=== PATIENT | female | born 1940 | race Caucasian/White ===

== ENCOUNTER 2017-06-14 11:50 | Emergency (ER) | payer BC ==
[~2017-06-14] VITALS: Ht 165.1 cm; Wt 74.0 kg
[~2017-06-14 11:50] MED LIST: ALLDSR/24 PO; ASPI-435 PO; ATEN50TA21 PO; BISM262C5 PO; CLTP PO; CLX20 PO; OXYBPOW PO; POTA10CA28 PO; PRLSR20 PO; SIMV10TA5 PO
[2017-06-14 11:52] VITALS: TEMP 36.7; Ht 165.1 cm; Wt 74.0 kg
[2017-06-14] MEDS ORDERED: NRN100 PO (12:25)
[2017-06-14] MEDS ORDERED: HYDR-4313 PO (12:25)
[2017-06-14] MEDS ORDERED: ASPI325T39 PO (12:25)
[2017-06-14] MEDS ORDERED: MULTTAB58 PO (12:26)
[2017-06-14] MEDS ORDERED: CALC-354 PO (12:27)
--- NOTE | 2017-06-14 13:16 | DIAGNOSTIC IMAGING REPORT ---
ULTRASOUND RIGHT LOWER EXTREMITY VENOUS CLINICAL HISTORY: Right leg pain and swelling. COMPARISON STUDY: No priors. TECHNIQUE: Real-time, grayscale, and color Doppler sonography of the deep veins of the right lower extremity was performed from the inguinal crease to the calf. Compression and augmentation were utilized. FINDINGS: There is no sonographic evidence of deep venous thrombosis identified in the right lower extremity. The common femoral, superficial femoral, and popliteal veins are patent and normally compressible. The greater saphenous vein and the profunda femoris vein at the junction with the common femoral vein are clear. The visualized calf veins are patent. A 5 mm hypoechoic nodule is seen posterior to the knee at a site of bruising. This is of indeterminant but doubtful significance. No large hematoma is identified. IMPRESSION: There is no sonographic evidence of deep venous thrombosis identified in the right lower extremity. Electronically signed by: Manjinder Myers M.D. 06/14/2017 1:15 PM Dictated Date/Time: 06/14/2017 1:14 PM
--- NOTE | 2017-06-14 13:36 | EMERGENCY ROOM VISIT NOTE ---
ED Visit Note First contact with patient: 12:15 I have personally seen and evaluated the patient with the physician ambulance assistant. I agree with the diagnostic/management decisions and have personally been involved in these decisions and agree with the diagnosis.
[2017-06-14 13:44] VITALS: BP 125/68; PULSE 59; O2SAT 96
--- NOTE | 2017-06-17 13:03 | EMERGENCY ROOM VISIT NOTE ---
History First contact with patient: 12:15 Chief Complaint: LEG PAIN,LEG INJURY Stated Complaint: RT LEG LUMP/NEAR KNEE AREA-METAL DOOR HIT IN LEG History of Present Illness The patient is a 76 year old white female who presents to the Emergency Room with complaints of right knee discomfort and right lower leg discoloration. Patient struck her leg on a swinging metal door a few days ago. She developed swelling and discoloration. She was at the [facility] [place] and one of the continuous yarn dyeing machine operator looked at her leg. They told her to come to the ED for evaluation for a blood clot. She denies any numbness or tingling. There was no laceration. She has had no treatment. She denies any shortness of breath. No other complaints. She notes a small lump postero-laterally and some soreness in this area. No prior history of similar injury. She denies any history of DVTs. Review of Systems REVIEW OF SYSTEM: HEENT: No dizziness, visual problems, hearing loss, or tinnitus. There is no difficulty swallowing and no oral lesions are present. PULMONARY: No cough, shortness of breath, sputum production or hemoptysis. CARDIOVASCULAR: No chest pain, palpitations, shortness of breath or peripheral edema. GASTROINTESTINAL: No diarrhea, constipation, nausea, vomiting, or abdominal pain. GENITOURINARY: No dysuria, frequency, urgency or nocturia. NEUROLOGIC: No weakness, muscle tenderness, epilepsy or history of neurological problems. MUSCULOSKELETAL: No history of joint tenderness/swelling. Positive history of arthritis and arthralgias. SKIN: No rashes or lesions. PSYCHIATRIC: No history of depression or mental illness. ENDOCRINE: No history of diabetes, thyroid disorders, or abnormal hair growth. Past Medical/Surgical History Medical Problems: (1) Cholelithiasis Nos (2) Hypertension Nos (3) Osteoporosis Nos (4) Personal History, Pneumonia (Recurrent) (5) Pure Hypercholesterolem Previous surgeries: Back surgery, carpal tunnel release, cubital tunnel release Family History Significant for heart disease, hypertension, and cancer. Parents are . Social History Smoking Status: Former Smoker Smokeless Tobacco Use: No Alcohol Use: none Marital Status: Housing Status: lives with family Occupation Status: retired Current/Historical Medications Scheduled Aspirin (Aspirin Ec), 325 MG PO DAILY Atenolol & Chlorthalidone (Tenoretic 50MG/25MG), 1 TAB PO DAILY Calcium Carbonate-Cholecalcife (Caltrate 600+D), 1 TAB PO DAILY Multiple Vitamin (Multivitamin), 1 TAB PO DAILY Potassium Chloride (Micro-K Ext Rel), 20 MEQ PO BID Simvastatin (Zocor), 10 MG PO QPM Scheduled PRN Acetaminophen/Hydrocodone (Hydrocodone/Acetaminophen 5-325 mg), 1 TAB PO Q4H PRN for Pain Gabapentin (Gabapentin), 100-400 MG PO UD PRN for NEUROPATHY Allergies Coded Allergies: Azithromycin (Verified Allergy, Severe, THROAT SWELLS, 06/14/17) Penicillin V (Verified Allergy, Mild, CAN TAKE PO PCN/AMOX W/O PROBLEM; ARM SWELLED W/ PCN SHOT, 06/14/17) Sulfamethoxazole w/Trimethoprim (Unverified Allergy, Unknown, Hives, ) Physical Exam Vital Signs Date Time Temp Pulse Resp B/P (MAP) Pulse Ox O2 Delivery O2 Flow Rate FiO2 06/14/17 13:44 59 20 125/68 96 Room Air 06/14/17 11:52 36.7 66 18 133/74 94 Room Air Pain Rating (0-10): 0 Physical Exam Gen.: Well-developed, elderly white female, in no acute distress. Sitting on a bed. Alert and oriented. Skin:Warm and dry with good turgor. No rashes or lesions. No erythema. Significant ecchymosis present over the posterior and lateral aspect of her right lower leg. No open wounds. Mild edema. She seems to have a localized pocket just lateral to the popliteal fossa. No palpable cords. The patient is not diaphoretic. No abrasions. Musculoskeletal: She has intact motion to the knee and ankle without discomfort. Normal Hess test. Normal Homans test. Strength is 5/5 for resisted motion. No significant discomfort with palpation over the medial or lateral joint line at the knee. Mild discomfort over her distal biceps femoris tendon. No increased pain with resisted hamstring curl. Neurologic: Gross sensation is intact across the right lower leg by soft touch. Peripheral pulses are 2+. Medical Decision & Procedures ER Provider Diagnostic Interpretation: Ultrasound obtained today of the right lower leg was read by radiology as unremarkable. ED Course Patient was educated regarding today's findings. Conservative care measures were discussed. Ultrasound was obtained and was negative for DVT. She was instructed to use moist heat to the leg several times per day to speed healing. Elevate to reduce any swelling. Tylenol every 6 hours as needed for mild discomfort. Follow-up with her PCP as needed or return to the ED for any other concerns. Contusion handout was provided. Patient was seen in conjunction with Dr. Paz, who also evaluated the patient and concurred with today's diagnosis and treatment plan. Medical Decision Possibility of DVT, hematoma, muscle rupture, tendon rupture, and intra- articular process were considered among others. Impression Primary Impression: Traumatic hematoma of right lower leg Departure Information Dispostion Home / Self-Care Condition FAIR Forms HOME CARE DOCUMENTATION FORM, TYLENOL USE, IMPORTANT VISIT INFORMATION Patient Instructions [facility], ED Hematoma Additional Instructions Tylenol every 6 hours as needed for discomfort Apply warm moist compresses to the area several times per day to resolve the discoloration and swelling Follow-up with your PCP as needed Return to the ED for any other concerns Problem Qualifiers Primary Impression: Traumatic hematoma of right lower leg Encounter type: initial encounter Qualified Codes: S80.11XA - Contusion of right lower leg, initial encounter
[2017-06-24] MEDS ORDERED: ZNT150 PO (08:53)
== END 2017-06-14 13:54 | disposition home or self-care (01) ==
LOC: C.EDB 11:54 → C.EDD 13:54
DX: S80.11XA Contusion of right lower leg, initial encounter (principal); W22.8XXA Striking against or struck by other objects, initial encounter; M25.561 Pain in right knee; I10 Essential (primary) hypertension; M81.0 Age-related osteoporosis without current pathological fracture; E78.5 Hyperlipidemia, unspecified; Z87.01 Personal history of pneumonia (recurrent); Z87.891 Personal history of nicotine dependence; Z79.82 Long term (current) use of aspirin

== ENCOUNTER 2017-06-22 11:10 | Observation (INO) | payer BC ==
[~2017-06-22] VITALS: Ht 162.6 cm; Wt 74.2 kg
[~2017-06-22 11:10] MED LIST changes: -ALLDSR/24 PO; -ASPI-435 PO; +ASPI325T39 PO; -BISM262C5 PO; +CALC-354 PO; -CLTP PO; -CLX20 PO; +HYDR-4313 PO; +MULTTAB58 PO; +NRN100 PO; -OXYBPOW PO; -PRLSR20 PO
[2017-06-22] MEDS ORDERED: ONDANSETRON INJ 2 MG/ML 2 ML VIAL IV STA (11:28)
[2017-06-22] MEDS ORDERED: FENTANYL CITRATE INJ 50 MCG/1 ML 2 ML VIAL IV ONE (11:30)
[2017-06-22] MEDS ORDERED: SODIUM CHLORIDE 0.9% 500ML 500 ML IV STA ×2 (11:46→11:47)
[2017-06-22 11:48] LABS: BASO % 0.2 %; BASO ABS # 0.02 K/uL (0-0.2); COMPLETE YES; HEMATOCRIT 39.1 % (37-47); IG% 0.3 %; LYMPH ABS # 1.42 K/uL (1.2-3.4); MEAN CELL VOLUME 88.7 fL (80-100); MEAN CORPUSCULAR HEMOGLOBIN 31.3 pg (25-34); MEAN CORPUSCULAR HGB CONC 35.3 g/dl (32-36); MEAN PLATELET VOLUME 9.9 fL (7.4-10.4); MONO % 6.6 %; NEUT % 80.9 %; PLATELET COUNT 243 K/uL (130-400); RED BLOOD COUNT 4.41 M/uL (4.2-5.4); WHITE BLOOD COUNT 11.81 K/uL (4.8-10.8)
[2017-06-22 11:58] LABS: PARTIAL THROMBOPLASTIN RATIO 0.9; PROTHROMBIN TIME (PATIENT) 10.7 SECONDS (9.0-12.0)
--- NOTE | 2017-06-22 12:01 | DIAGNOSTIC IMAGING REPORT ---
CHEST ONE VIEW PORTABLE HISTORY: Atypical CHEST PAIN COMPARISON: Chest 12/03/2010. FINDINGS: The heart is top normal in size. Poststernotomy changes. No focal lung consolidations. No evidence for pulmonary edema. No pleural effusions. No pneumothorax. Mild interstitial thickening at the lung bases is likely chronic. IMPRESSION: No acute process. Electronically signed by: Martin Granados M.D. 06/22/2017 12:00 PM Dictated Date/Time: 06/22/2017 11:57 AM
[2017-06-22 12:07] LABS: BUN/CREATININE RATIO 23.7 (10-20); CALCIUM 9.2 mg/dl (8.5-10.1); CREATININE 0.61 mg/dl (0.60-1.20); MAGNESIUM 2.1 mg/dl (1.8-2.4); POTASSIUM 2.6 mmol/L (3.5-5.1)
--- NOTE | 2017-06-22 12:09 | EMERGENCY ROOM VISIT NOTE ---
History Report prepared by Nolanibe: Ema Wilde Under the Supervision of: Dr. Douglas Abad M.D. First contact with patient: 11:22 Chief Complaint: CHEST PAIN Stated Complaint: CHEST/ABD PAIN, VOMITING Nursing Triage Summary: Substernal CP x3 days with associated dyspnea. "I think it's my gall bladder. I was just here a few days ago to make sure I didn't have clots in my legs and it hurt then on and off but it's worse now." History of Present Illness The patient is a 79 year old white female with a past medical history of aneurysms and disc repair surgery, who presents to the ED with a cc of constant chest pain beginning 3 days ago. Positive vomiting, nausea, and sob when laying. Negative cough, traveling, etoh, and tobacco (pt quit smoking two years ago). Source of History: patient Onset: 3 days ago Position: chest Timing: constant Associated Symptoms: + SOB (when laying flat), + nausea, + vomiting, No cough Review of Systems See HPI for pertinent positives and negatives. A total of ten systems were reviewed and were otherwise negative. Past Medical & Surgical Medical Problems: (1) Cholelithiasis Nos (2) Hypertension Nos (3) Osteoporosis Nos (4) Personal History, Pneumonia (Recurrent) (5) Pure Hypercholesterolem Family History no pertinent family history stated Social History Smoking Status: Former Smoker Alcohol Use: none Marital Status: Housing Status: lives with family Occupation Status: retired Current/Historical Medications Scheduled Aspirin (Aspirin Ec), 325 MG PO DAILY Atenolol & Chlorthalidone (Tenoretic 50MG/25MG), 1 TAB PO DAILY Calcium Carbonate-Cholecalcife (Caltrate 600+D), 1 TAB PO DAILY Multiple Vitamin (Multivitamin), 1 TAB PO DAILY Potassium Chloride (Micro-K Ext Rel), 20 MEQ PO BID Simvastatin (Zocor), 10 MG PO QPM Scheduled PRN Acetaminophen/Hydrocodone (Hydrocodone/Acetaminophen 5-325 mg), 1 TAB PO Q4H PRN for Pain Gabapentin (Gabapentin), 100-400 MG PO UD PRN for NEUROPATHY Allergies Coded Allergies: Azithromycin (Verified Allergy, Severe, THROAT SWELLS, 06/22/17) Penicillin V (Verified Allergy, Mild, CAN TAKE PO PCN/AMOX W/O PROBLEM; ARM SWELLED W/ PCN SHOT, 06/22/17) Sulfamethoxazole w/Trimethoprim (Unverified Allergy, Unknown, Hives, ) Physical Exam Vital Signs Date Time Temp Pulse Resp B/P (MAP) Pulse Ox O2 Delivery O2 Flow Rate FiO2 06/22/17 15:47 62 20 127/58 96 Room Air 06/22/17 14:30 55 16 154/57 95 Room Air 06/22/17 13:30 59 14 143/57 96 Room Air 06/22/17 12:30 57 20 129/61 94 Room Air 06/22/17 12:23 52 06/22/17 11:12 36.6 62 18 119/79 97 Room Air Physical Exam GENERAL: Awake, alert, well-appearing, NAD HENT: Normocephalic, atraumatic. No JVD midline sternotomy scar. EYES: Normal conjunctiva. Sclera non-icteric. NECK: Supple. No nuchal rigidity. FROM. RESPIRATORY: CTAB, no rhonchi, wheezing, crackles CARDIAC: RRR, no MRG ABDOMEN: Soft, NTND, BS+, No CVA tenderness, mild RUQ epigastric pain. Negative Obturators, negative Psoas, negative Lilly's MSK: No chest wall TTP, no LE edema, 2+ dp pulses present. NEURO: GCS 15, CN 2-12 intact, moves all 4s on command SKIN: No rash or jaundice noted. Medical Decision & Procedures ER Provider Diagnostic Interpretation: Radiology results as stated below per my review and radiologist interpretation: CHEST ONE VIEW PORTABLE FINDINGS: The heart is top normal in size. Poststernotomy changes. No focal lung consolidations. No evidence for pulmonary edema. No pleural effusions. No pneumothorax. Mild interstitial thickening at the lung bases is likely chronic. IMPRESSION: No acute process. Electronically signed by: Martin Granados M.D. Laboratory Results 06/22/17 11:29 Red Blood Count 4.41, Mean Corpuscular Volume 88.7, Mean Corpuscular Hemoglobin 31.3, Mean Corpuscular Hemoglobin Concent 35.3, Mean Platelet Volume 9.9, Neutrophils (%) (Auto) 80.9, Lymphocytes (%) (Auto) 12.0, Monocytes (%) (Auto) 6.6, Eosinophils (%) (Auto) 0.0, Basophils (%) (Auto) 0.2, Neutrophils # (Auto) 9.55, Lymphocytes # (Auto) 1.42, Monocytes # (Auto) 0.78, Eosinophils # (Auto) 0.00, Basophils # (Auto) 0.02 06/22/17 11:29 Test 06/22/17 11:29 06/22/17 11:37 White Blood Count 11.81 K/uL (4.8-10.8) Red Blood Count 4.41 M/uL (4.2-5.4) Hemoglobin 13.8 g/dL (12.0-16.0) Hematocrit 39.1 % (37-47) Mean Corpuscular Volume 88.7 fL (80-100) Mean Corpuscular Hemoglobin 31.3 pg (25-34) Mean Corpuscular Hemoglobin Concent 35.3 g/dl (32-36) Platelet Count 243 K/uL (130-400) Mean Platelet Volume 9.9 fL (7.4-10.4) Neutrophils (%) (Auto) 80.9 % Lymphocytes (%) (Auto) 12.0 % Monocytes (%) (Auto) 6.6 % Eosinophils (%) (Auto) 0.0 % Basophils (%) (Auto) 0.2 % Neutrophils # (Auto) 9.55 K/uL (1.4-6.5) Lymphocytes # (Auto) 1.42 K/uL (1.2-3.4) Monocytes # (Auto) 0.78 K/uL (0.11-0.59) Eosinophils # (Auto) 0.00 K/uL (0-0.5) Basophils # (Auto) 0.02 K/uL (0-0.2) RDW Standard Deviation 44.0 fL (36.4-46.3) RDW Coefficient of Variation 13.4 % (11.5-14.5) Immature Granulocyte % (Auto) 0.3 % Immature Granulocyte # (Auto) 0.04 K/uL (0.00-0.02) Prothrombin Time 10.7 SECONDS (9.0-12.0) Prothromb Time International Ratio 1.0 (0.9-1.1) Activated Partial Thromboplast Time 24.2 SECONDS (21.0-31.0) Partial Thromboplastin Ratio 0.9 Anion Gap 6.0 mmol/L (3-11) Est Creatinine Clear Calc Drug Dose 77.6 ml/min Estimated GFR () 102.1 Estimated GFR (Non- 88.1 BUN/Creatinine Ratio 23.7 (10-20) Calcium Level 9.2 mg/dl (8.5-10.1) Phosphorus Level 2.9 mg/dl (2.5-4.9) Magnesium Level 2.1 mg/dl (1.8-2.4) Total Bilirubin 0.7 mg/dl (0.2-1) Direct Bilirubin 0.1 mg/dl (0-0.2) Aspartate Amino Transf (AST/SGOT) 19 U/L (15-37) Alanine Aminotransferase (ALT/SGPT) 26 U/L (12-78) Alkaline Phosphatase 64 U/L (45-117) Total Creatine Kinase 104 U/L (26-192) Total Protein 7.7 gm/dl (6.4-8.2) Albumin 4.2 gm/dl (3.4-5.0) Triglycerides Level 87 mg/dl (0-150) Cholesterol Level 225 mg/dl (0-200) HDL Cholesterol 78 mg/dl LDL Cholesterol, Calculated 130 mg/dl VLDL Cholesterol, Calculated 17 mg/dl Cholesterol/HDL Ratio 2.9 Lipase 178 U/L (73-393) Bedside Troponin I < 0.030 ng/ml (0-0.045) Laboratory results reviewed by me Medications Administered Medications (Trade) Dose Ordered Sig/Madhu Route Start Time Stop Time Status Last Admin Dose Admin Ondansetron HCl (Zofran Inj) 4 mg NOW STAT IV 06/22/17 11:28 06/22/17 11:31 DC 06/22/17 11:48 4 MG Fentanyl Citrate (Fentanyl Inj) 50 mcg NOW ONCE IV 06/22/17 11:30 06/22/17 11:31 DC 06/22/17 11:49 50 MCG Sodium Chloride 500 ml @ 999 mls/hr Q31M STAT IV 06/22/17 11:46 06/22/17 12:16 DC 06/22/17 11:48 999 MLS/HR Potassium Chloride (Klor-Con M10) 40 meq NOW STAT PO 06/22/17 12:40 06/22/17 12:41 DC 06/22/17 12:46 40 MEQ Potassium Chloride (Kcl 10 Meq / Wtr) 20 meq NOW STAT IV 06/22/17 12:40 06/22/17 12:41 DC 06/22/17 12:47 20 MEQ ECG Indication: chest pain Rate (beats per minute): 59 Rhythm: sinus bradycardia Findings: T-wave inversion (and depression in V3-V6), other (normal intervals) ED Course 1140: The patient was evaluated in room C11B. A complete history and physical exam was performed. 1248: Discussed the patient's case with Dr. Chauncey Calhoun. The patient will be evaluated for further treatment and disposition. 1255: Upon reexamination, the patient was resting. I discussed the test results and treatment plan with the patient. The patient will be evaluated for further management. Medical Decision The patient is a 79 year old white female with a past medical history of aneurysms and disc repair surgery, who presents to the ED with a cc of constant chest pain beginning 3 days ago. Differential diagnosis: Etiologies such as cardiac ischemia, aortic dissection, pulmonary embolism, pneumonia, pneumothorax, musculoskeletal, infections, pericarditis, myocarditis , esophageal rupture, gastrointestinal, as well as others were entertained. Patient was seen and evaluated the bedside. Patient did have intermittent substernal chest pain ongoing 3 days. Patient did have 2+ DP pulses that were palpable. Patient's EKG was concerning for lateral ST depressions and T-wave inversions V3-V6. Patient's troponin was negative. Patient does take a full dose aspirin which was undertaken today. Patient denies any trauma. Patient's chest x-ray was negative. Patient does have fairly normal blood pressures and nitroglycerin was not given at this time. I spoke with the hospitalist team. The patient benefit from a cardiac workup in addition to repeat EKGs and serial enzymes. Medication Reconcilliation Current Medication List: was personally reviewed by me Blood Pressure Screening Patient's blood pressure: Normal blood pressure Consults Time Called: 1246 Consulting Physician: Dr. Chauncey Calhoun Returned Call: [phone] Discussed the patient's case. The patient will be evaluated for further treatment and disposition. Impression Primary Impression: atypicial chest pain Additional Impression: ST segment depression Scribe Attestation The scribe's documentation has been prepared under my direction and personally reviewed by me in its entirety. I confirm that the note above accurately reflects all work, treatment, procedures, and medical decision making performed by me. Departure Information Dispostion Being Evaluated By Hospitalist Referrals Pearl Benjamin M.D. (PCP) Patient Instructions My [facility] Problem Qualifiers
[2017-06-22 12:11] LABS: PHOSPHORUS 2.9 mg/dl (2.5-4.9)
[2017-06-22] MEDS ORDERED: POTASSIUM CHLORIDE 10 MEQ TABCR PO STA (12:40)
[2017-06-22] MEDS ORDERED: POTASSIUM CHLORIDE 10 MEQ / 100ML WTR IV STA (12:40)
[2017-06-22 13:52] LABS: CHOLESTEROL/HDL RATIO 2.9
--- NOTE | 2017-06-22 15:17 | History and Physical ---
History & Physical Date & Time of Service: Jun 22, 2017 at 15:14 Chief Complaint: Chest/Abd Pain, Vomiting Primary Care Physician: Pearl Benjamin M.D. History of Present Illness 76 year old F with HTN, dyslipidemia, PMH of TIA around 2 to 3 months ago and on aspirin 324 mg at home, history of aortic thoracic aneurysm with sternotomy wires visualized on Chest X ray of past surgical history of aneurysm repair with presentation to ED for chest pain that is midsternal between the breast above the abdomen that is nonradiating. No reported diaphoresis or shortness of breath. Symptoms for around 3 days with pain not changing when sitting, standing or lying down. Pain has been disrupting her sleep. Also associated with nausea and vomiting vs gastric reflux. Patient's initial troponin negative x 1 however seen to have EKG with T wave inversions and flattening in V3 to V6 and sinus bradycardia. Also hypokalemic to 2.6 Review of home medications significant for diuretic for hypertension (atenolol/chlorthalidone combination drug) and patient has been on potassium supplements from her primary medication doctor. Patient reporting medication adherence. Family History Abdominal aortic aneurysm BROTHER FH: pancreatic cancer BROTHER Social History Smoking Status: Former Smoker Marital Status: Occupational Status: retired Immunizations History of Influenza Vaccine: Yes Influenza Vaccine Date: Aug 07, 2010 History of Tetanus Vaccine?: Yes Tetanus Immunization Date: Aug 21, 2004 History of Pneumococcal: Yes Pneumococcal Date: Aug 29, 2010 History of Hepatitis B Vaccine: No Multi-Drug Resistant Organisms History of MDRO: No Allergies Coded Allergies: Azithromycin (Verified Allergy, Severe, THROAT SWELLS, 06/22/17) Penicillin V (Verified Allergy, Mild, CAN TAKE PO PCN/AMOX W/O PROBLEM; ARM SWELLED W/ PCN SHOT, 06/22/17) Sulfamethoxazole w/Trimethoprim (Unverified Allergy, Unknown, Hives, ) Home Medications Scheduled Aspirin (Aspirin Ec), 325 MG PO DAILY Atenolol & Chlorthalidone (Tenoretic 50MG/25MG), 1 TAB PO DAILY Calcium Carbonate-Cholecalcife (Caltrate 600+D), 1 TAB PO DAILY Multiple Vitamin (Multivitamin), 1 TAB PO DAILY Potassium Chloride (Micro-K Ext Rel), 20 MEQ PO BID Simvastatin (Zocor), 10 MG PO QPM Scheduled PRN Acetaminophen/Hydrocodone (Hydrocodone/Acetaminophen 5-325 mg), 1 TAB PO Q4H PRN for Pain Gabapentin (Gabapentin), 100-400 MG PO UD PRN for NEUROPATHY Review of Systems Constitutional: No fever, No chills Eyes: No diplopia ENT: No trouble swallowing Respiratory: No cough, No shortness of breath, No dyspnea on exertion, No dyspnea at rest Cardiovascular: + chest pain, No orthopnea, No edema, No palpitations Abdomen: + nausea, + vomiting, No pain, No diarrhea, No constipation Musculoskeletal: No joint pain, No muscle pain, No swelling, No calf pain Genitourinary - Female: No dysuria Neurologic: No numbness/tingling Psychiatric: No substance abuse Hematologic / Lymphatic: No abnormal bleeding/bruising Integumentary: No rash, No itch, No new/changing skin lesions Physical Exam Vital Signs Date Time Temp Pulse Resp B/P (MAP) Pulse Ox O2 Delivery O2 Flow Rate FiO2 06/22/17 14:30 55 16 154/57 95 Room Air 06/22/17 13:30 59 14 143/57 96 Room Air 06/22/17 12:30 57 20 129/61 94 Room Air 06/22/17 12:23 52 06/22/17 11:12 36.6 62 18 119/79 97 Room Air General Appearance: no apparent distress Head: normocephalic, atraumatic Eyes: normal inspection, PERRL, EOMI, sclerae normal ENT: hearing grossly normal, pharynx normal Neck: supple, no JVD, no carotid bruits, trachea midline Respiratory/Chest: chest non-tender, lungs clear, normal breath sounds, no respiratory distress, no accessory muscle use Cardiovascular: no edema, no JVD, normal peripheral pulses Abdomen/GI: normal bowel sounds, non tender, soft, no pulsatile mass Extremities/Musculoskelatal: normal inspection, no calf tenderness, normal capillary refill, no pedal edema, normal range of motion Neurologic/Psych: no motor/sensory deficits, alert, oriented x 3 Skin: normal color, warm/dry, no rash Diagnostics Laboratory Results Results Past 24 Hours Test 06/22/17 11:29 06/22/17 11:37 Range/Units White Blood Count 11.81 4.8-10.8 K/uL Red Blood Count 4.41 4.2-5.4 M/uL Hemoglobin 13.8 12.0-16.0 g/dL Hematocrit 39.1 37-47 % Mean Corpuscular Volume 88.7 80-100 fL Mean Corpuscular Hemoglobin 31.3 25-34 pg Mean Corpuscular Hemoglobin Concent 35.3 32-36 g/dl Platelet Count 243 130-400 K/uL Mean Platelet Volume 9.9 7.4-10.4 fL Neutrophils (%) (Auto) 80.9 % Lymphocytes (%) (Auto) 12.0 % Monocytes (%) (Auto) 6.6 % Eosinophils (%) (Auto) 0.0 % Basophils (%) (Auto) 0.2 % Neutrophils # (Auto) 9.55 1.4-6.5 K/uL Lymphocytes # (Auto) 1.42 1.2-3.4 K/uL Monocytes # (Auto) 0.78 0.11-0.59 K/uL Eosinophils # (Auto) 0.00 0-0.5 K/uL Basophils # (Auto) 0.02 0-0.2 K/uL RDW Standard Deviation 44.0 36.4-46.3 fL RDW Coefficient of Variation 13.4 11.5-14.5 % Immature Granulocyte % (Auto) 0.3 % Immature Granulocyte # (Auto) 0.04 0.00-0.02 K/uL Prothrombin Time 10.7 9.0-12.0 SECONDS Prothromb Time International Ratio 1.0 0.9-1.1 Activated Partial Thromboplast Time 24.2 21.0-31.0 SECONDS Partial Thromboplastin Ratio 0.9 Sodium Level 133 136-145 mmol/L Potassium Level 2.6 3.5-5.1 mmol/L Chloride Level 95 98-107 mmol/L Carbon Dioxide Level 32 21-32 mmol/L Anion Gap 6.0 3-11 mmol/L Blood Urea Nitrogen 14 7-18 mg/dl Creatinine 0.61 0.60-1.20 mg/dl Est Creatinine Clear Calc Drug Dose 77.6 ml/min Estimated GFR () 102.1 Estimated GFR (Non- 88.1 BUN/Creatinine Ratio 23.7 10-20 Random Glucose 122 70-99 mg/dl Calcium Level 9.2 8.5-10.1 mg/dl Phosphorus Level 2.9 2.5-4.9 mg/dl Magnesium Level 2.1 1.8-2.4 mg/dl Total Bilirubin 0.7 0.2-1 mg/dl Direct Bilirubin 0.1 0-0.2 mg/dl Aspartate Amino Transf (AST/SGOT) 19 15-37 U/L Alanine Aminotransferase (ALT/SGPT) 26 12-78 U/L Alkaline Phosphatase 64 45-117 U/L Total Creatine Kinase 104 26-192 U/L Total Protein 7.7 6.4-8.2 gm/dl Albumin 4.2 3.4-5.0 gm/dl Triglycerides Level 87 0-150 mg/dl Cholesterol Level 225 0-200 mg/dl HDL Cholesterol 78 mg/dl LDL Cholesterol, Calculated 130 mg/dl VLDL Cholesterol, Calculated 17 mg/dl Cholesterol/HDL Ratio 2.9 Lipase 178 73-393 U/L Bedside Troponin I < 0.030 0-0.045 ng/ml Diagnostic Radiology CHEST ONE VIEW PORTABLE FINDINGS: The heart is top normal in size. Poststernotomy changes. No focal lung consolidations. No evidence for pulmonary edema. No pleural effusions. No pneumothorax. Mild interstitial thickening at the lung bases is likely chronic. IMPRESSION: No acute process. No Infiltrate EKG sinus bradycardia T wave inversions and flattening in V3 to V6 Impression Assessment and Plan 76 year old F with HTN, dyslipidemia, history of TIA, history of aortic thoracic aneurysm with sternotomy wires visualized on Chest X ray of past surgical history of aneurysm repair with presentation to ED for atypical chest pain with T wave inversions in lateral leads and hypokalemia Chest pain -initial troponin negative, trend troponins -bradycardia with T wave inversions in lateral leads, place on cardiac telemetry History of TIA with no residual weakness -patient already took her aspirin 324 mg earlier today, restart home medication tomorrow History of aortic/thoracic aneurysm -blood pressure stable, unlikely to be aortic dissection -will send for TTE and abdominal ultrasound Hypertension -continue home dose atenolol -hold chlorthalidone for now because of hypokalemia, patient may need to be on alternative second antihypertensives as outpatient if chronically on potassium supplements at home Hypokalemia -ED ordered potassium 40 meq potassium PO and 20 meq IV -recheck potassium levels with second troponin -hold diuretics SCD for DVT prophylaxis Level of Care Telemetry Resuscitation Status FULL RESUSCITATION
[2017-06-22] MEDS ORDERED: IV FLUIDS COMPLETED PRN (16:45)
--- NOTE | 2017-06-22 17:25 | DIAGNOSTIC IMAGING REPORT ---
ABDOMEN COMPLETE (US) CLINICAL HISTORY: 76 years-old Female with history of aneurysm repair, history of gallstones. Acute abdominal pain. TECHNIQUE: Multiple real time sonographic images of the abdomen were obtained assessing larkin-scale appearance. COMPARISON: Ultrasound 12/01/2012 FINDINGS: PANCREAS: The pancreas is partially obscured by bowel gas. The visualized portions of the pancreas are normal without focal lesion or pancreatic duct dilatation. LIVER: The liver demonstrates a homogeneous parenchymal echotexture. There is no intrahepatic bile duct dilation, focal lesion, or contour nodularity. There is no ascites. GALLBLADDER: Multiple gallstones with minimal layering sludge noted within a mildly distended gallbladder lumen. No gallbladder wall thickening identified. No pericholecystic fluid collections. Patient was given pain medication prior to the study, therefore a sonographic Lilly sign was unable to be assessed. The common bile duct measures 0.5 cm. RIGHT KIDNEY: The right kidney measures 11.6 cm. The parenchymal echotexture and cortical thickness are normal. No nephrolithiasis or hydronephrosis. LEFT KIDNEY: The left kidney measures 11.1 cm. The parenchymal echotexture and cortical thickness are normal. No nephrolithiasis or hydronephrosis. Minimally septated cyst of the left kidney is seen, 2.3 x 2.1 x 1.6 cm with increased through transmission. No associated soft tissue mass or mural nodularity identified. SPLEEN: The spleen measures 8.5 cm and is normal in echotexture. No focal lesions are identified. VASCULATURE: Atherosclerotic plaquing is noted throughout the abdominal aorta. There is mild fusiform aneurysmal dilatation of the proximal abdominal aorta measuring up to 2.7 x 3.3 cm. Mid aorta measures 2.7 cm in greatest dimension and the distal abdominal aorta measures up to 2.2 cm. The imaged IVC is unremarkable. IMPRESSION: 1. Mild gallbladder distention is noted with cholelithiasis. No gallbladder wall thickening or pericholecystic fluid collections were seen. The patient was given pain medication prior to the study, therefore a sonographic Lilly sign was unable to be obtained. If there is concern for acute cholecystitis, a nuclear medicine hepatobiliary scan may be considered. 2. No biliary ductal dilation. 3. Mild fusiform aneurysmal dilation of the abdominal aorta is seen measuring up to 3.3 cm. There is associated atherosclerotic vascular disease. 4. Mildly complex left renal cyst is seen, 2.3 cm. The above report was generated using voice recognition software. It may contain grammatical, syntax or spelling errors. Electronically signed by: Bob Vela M.D. 06/22/2017 5:23 PM Dictated Date/Time: 06/22/2017 5:18 PM
[2017-06-22 18:00] VITALS: BP 132/65; PULSE 55; Ht 162.6 cm; Wt 74.2 kg
--- NOTE | 2017-06-22 18:20 | ECHOCARDIOGRAM REPORT ---
*NOTICE TO RECEIVING CONSTITUTION PARTY AGENCY This information is strictly Confidential and protected under [place] law. [place] law prohibits you from making any further disclosure of this information unless further disclosure is expressly permitted by the written consent of the person to whom it pertains or is authorized by law. A general authorization for the release of medical or other information is not sufficient for this purpose. Hospital accepts no responsibility if the information is made available to any other person, INCLUDING THE PATIENT. Interpretation Summary * Conclusions -- * There is borderline asymmetric left ventricular hypertrophy. * Left ventricular systolic function is normal. * Mild to moderate aortic regurgitation. * There is mild mitral regurgitation. * Compared to a study from 2010, the degree of aortic regurgitation does not appear severe. Procedure Details * Left Ventricle The left ventricle is normal in size. There is borderline asymmetric left ventricular hypertrophy. Left ventricular systolic function is normal. The left ventricular wall motion is normal. * Right Ventricle The right ventricle is normal in size and function. * Atria The left atrial size is normal. Right atrial size is normal. * Mitral Valve The mitral valve anatomy is normal. There is mild mitral regurgitation. * Tricuspid Valve The tricuspid valve is not well visualized, but is grossly normal. There is trace tricuspid regurgitation. * Aortic Valve The aortic valve is trileaflet. No hemodynamically significant valvular aortic stenosis. Mild to moderate aortic regurgitation. * Great Vessels The aortic root is normal size. * Pericardium/Pleural There is no pericardial effusion. * * MMode 2D Measurements and Calculations * IVSd 1.3 cm * IVSs 1.3 cm * * LVIDd 3.9 cm * LVIDs 3.1 cm * LVPWd 1.1 cm * LVPWs 1.3 cm * * IVS/LVPW 1.2 * FS 22.2 % * EDV(Teich) 67.3 ml * ESV(Teich) 36.8 ml * EF(Teich) 45.4 % * * EDV(cubed) 60.9 ml * ESV(cubed) 28.7 ml * EF(cubed) 52.9 % * % IVS thick -2.71 % * % LVPW thick 23.0 % * * LV mass(C)d 162.8 grams * LV mass(C)dI 90.6 grams/m\S\2 * LV mass(C)s 129.8 grams * LV mass(C)sI 72.2 grams/m\S\2 * * SV(Teich) 30.5 ml * SI(Teich) 17.0 ml/m\S\2 * SV(cubed) 32.2 ml * SI(cubed) 17.9 ml/m\S\2 * * Ao root diam 3.2 cm * Ao root area 8.0 cm\S\2 * ACS 2.3 cm * LA dimension 3.9 cm * * LA/Ao 1.2 * LVOT diam 2.0 cm * LVOT area 3.0 cm\S\2 * * LVAd ap4 33.5 cm\S\2 * LVLd ap4 7.7 cm * EDV(MOD-sp4) 120.0 ml * EDV(sp4-el) 124.2 ml * LVAs ap4 23.8 cm\S\2 * LVLs ap4 7.0 cm * ESV(MOD-sp4) 66.7 ml * ESV(sp4-el) 68.8 ml * EF(MOD-sp4) 44.4 % * EF(sp4-el) 44.6 % * * LVAd ap2 33.8 cm\S\2 * LVLd ap2 7.3 cm * EDV(MOD-sp2) 127.5 ml * EDV(sp2-el) 132.7 ml * LVAs ap2 24.9 cm\S\2 * LVLs ap2 7.0 cm * ESV(MOD-sp2) 74.3 ml * ESV(sp2-el) 75.4 ml * EF(MOD-sp2) 41.7 % * EF(sp2-el) 43.2 % * * LVLd %diff -4.81 % * EDV(MOD-bp) 124.9 ml * LVLs %diff -0.28 % * ESV(MOD-bp) 70.7 ml * EF(MOD-bp) 43.4 % * * SV(MOD-sp4) 53.3 ml * SI(MOD-sp4) 29.6 ml/m\S\2 * * SV(MOD-sp2) 53.2 ml * SI(MOD-sp2) 29.6 ml/m\S\2 * * SV(MOD-bp) 54.2 ml * SI(MOD-bp) 30.2 ml/m\S\2 * * SV(sp4-el) 55.4 ml * SI(sp4-el) 30.8 ml/m\S\2 * * SV(sp2-el) 57.3 ml * SI(sp2-el) 31.9 ml/m\S\2 * * * Doppler Measurements and Calculations * MV E max chely 101.4 cm/sec * MV A max chely 84.7 cm/sec * * MV E/A 1.2 * * MV P1/2t max chely 109.5 cm/sec * MV P1/2t 66.5 msec * MVA(P1/2t) 3.3 cm\S\2 * MV dec slope 482.0 cm/sec\S\2 * MV dec time 0.26 sec * * Ao V2 max 115.4 cm/sec * Ao max PG 5.3 mmHg * Ao max PG (full) 1.5 mmHg * JOSE(V,A) 2.6 cm\S\2 * JOSE(V,D) 2.6 cm\S\2 * * LV V1 max PG 3.8 mmHg * * LV V1 max 97.6 cm/sec * * MR max chely 483.2 cm/sec * MR max PG 93.4 mmHg * * PA V2 max 118.9 cm/sec * PA max PG 5.7 mmHg * *
[2017-06-22] MEDS ORDERED: ATORVASTATIN 40 MG TAB PO ONE (18:30)
[2017-06-22] MEDS ORDERED: RANITIDINE HCL 150 MG TAB PO ONE (18:30)
[2017-06-22] MEDS ORDERED: ONDANSETRON 4MG OD TAB PO PRN (19:15)
[2017-06-22 19:32] VITALS: BP 133/65; PULSE 60; TEMP 36.8; O2SAT 95
[2017-06-22 20:00] VITALS: O2SAT 95
[2017-06-22 20:48] LABS: BLOOD UREA NITROGEN 11 mg/dl (7-18); BUN/CREATININE RATIO 16.4 (10-20); CALCIUM 8.2 mg/dl (8.5-10.1); CARBON DIOXIDE 31 mmol/L (21-32); CHLORIDE 100 mmol/L (98-107); CKMB/CK RATIO 1.2 (0-3.0); CREATININE 0.67 mg/dl (0.60-1.20); GLUCOSE 114 mg/dl (70-99); SODIUM 137 mmol/L (136-145)
[2017-06-22] MEDS ORDERED: POTASSIUM CHLORIDE 10 MEQ TABCR PO ONE (22:30)
[2017-06-22] MEDS: ACETAMINOPHEN 325 MG TAB PO PRN (22:39)
[2017-06-23] VITALS: BP 132/67; PULSE 58; TEMP 36.7; O2SAT 93
[2017-06-23] MEDS ORDERED: TRAMADOL HCL 50 MG TAB PO PRN (03:15)
[2017-06-23] MEDS ORDERED: MoRPHine SULFATE 4 MG/ML 1 ML CARP\\VIAL IV PRN (03:15)
[2017-06-23 04:00] VITALS: BP 120/59; PULSE 53; TEMP 36.7; O2SAT 93
[2017-06-23 07:05] LABS: BASO % 0.8 %; BASO ABS # 0.07 K/uL (0-0.2); COMPLETE YES; EOS % 2.1 %; HEMATOCRIT 34.8 % (37-47); IG% 0.2 %; LYMPH % 30.1 %; LYMPH ABS # 2.49 K/uL (1.2-3.4); MEAN CELL VOLUME 91.3 fL (80-100); MEAN CORPUSCULAR HEMOGLOBIN 30.7 pg (25-34); MEAN CORPUSCULAR HGB CONC 33.6 g/dl (32-36); MEAN PLATELET VOLUME 10.1 fL (7.4-10.4); MONO % 12.1 %; NEUT % 54.7 %; PLATELET COUNT 205 K/uL (130-400); RED BLOOD COUNT 3.81 M/uL (4.2-5.4); WHITE BLOOD COUNT 8.27 K/uL (4.8-10.8)
[2017-06-23 07:25] VITALS: BP 143/92; PULSE 60; TEMP 36.4; O2SAT 96
[2017-06-23] MEDS: ASPIRIN 325 MG ECTAB PO SCH (07:32)
[2017-06-23 07:44] LABS: ALT/SGPT 17 U/L (12-78); BLOOD UREA NITROGEN 12 mg/dl (7-18); BUN/CREATININE RATIO 19.7 (10-20); CALCIUM 8.5 mg/dl (8.5-10.1); CARBON DIOXIDE 29 mmol/L (21-32); CHLORIDE 101 mmol/L (98-107); CREATININE 0.63 mg/dl (0.60-1.20); GLUCOSE 94 mg/dl (70-99); POTASSIUM 3.5 mmol/L (3.5-5.1); SODIUM 137 mmol/L (136-145)
[2017-06-23 07:51] LABS: ALB/GLOB RATIO 1.1 (0.9-2); ALKALINE PHOSPHATASE 49 U/L (45-117); AST/SGOT 14 U/L (15-37)
[2017-06-23] MEDS ORDERED: RANITIDINE HCL 150 MG TAB PO SCH (09:00)
[2017-06-23] MEDS ORDERED: POTASSIUM CHLORIDE 10 MEQ TABCR PO STA (10:30)
--- NOTE | 2017-06-23 10:40 | Progress Note ---
Internal Med Progress Note Date of Service: Jun 23, 2017. Provider Documentation: SUBJECTIVE: Seen and examined at bedside. States having RUQ and epigastric abdominal pain Denies nausea, vomiting Also had mild frontal headache Denies chest pain, SOB Family at bedside OBJECTIVE: Vital Signs-as noted below Physical Exam: General Appearance:Moderately built and nourished, no apparent distress Head: normocephalic, Atraumatic Eyes: normal inspection, EOMI, PERRL Neck: supple, Trachea midline Respiratory/Chest: Normal breath sounds, CTA Cardiovascular: S1, S2, No murmur Abdomen/GI:Soft, RUQ and epigastric tender, Bowel sounds present Extremities/Musculoskelatal:normal inspection, Trace edema Neurologic/Psych:grossly no focal neurological deficits Skin: normal color, warm Lab data as noted below. ASSESSMENT & PLAN: Patient is 76 yr old female with HTN, dyslipidemia, H/O TIA, aortic thoracic aneurysm S/P aneurysm repair presents with Epigastric, RUQ pain, T wave inversions in lateral leads and hypokalemia RUQ, Epigastric Abd pain/? Atypical Chest pain Troponin X2: Negative EKG:T wave changes in lateral leads CXR:No acute process ABD USD: Mild gallbladder distention with cholelithiasis Repeat Cardiac enzymes/EKG Get HIDA scan Continue Ranitidine LFTs:wnl, Afebrile, WBC:wnl ECHO:The left ventricular wall motion is normal. H/O TIA with no residual weakness Continue ASA, Statins H/O aortic/thoracic aneurysm Stable Hypertension continue atenolol hold chlorthalidone for now Hypokalemia Likely secondary to diuretics Replace and monitor H/O chronic recurrent headache ? Migraine Takes Tylenol PRN DVT px: SCDs Code Status: Full Code Disposition: Monitor in Tele PROCEDURES: ECHO: n There is borderline asymmetric left ventricular hypertrophy. n Left ventricular systolic function is normal. n Mild to moderate aortic regurgitation. n There is mild mitral regurgitation. n Compared to a study from 2010, the degree of aortic regurgitation does not appear severe. ABD USD: 1. Mild gallbladder distention is noted with cholelithiasis. No gallbladder wall thickening or pericholecystic fluid collections were seen. The patient was given pain medication prior to the study, therefore a sonographic Lilly sign was unable to be obtained. If there is concern for acute cholecystitis, a nuclear medicine hepatobiliary scan may be considered. 2. No biliary ductal dilation. 3. Mild fusiform aneurysmal dilation of the abdominal aorta is seen measuring up to 3.3 cm. There is associated atherosclerotic vascular disease. 4. Mildly complex left renal cyst is seen, 2.3 cm. Vital Signs: Date Time Temp Pulse Resp B/P (MAP) Pulse Ox O2 Delivery O2 Flow Rate FiO2 06/23/17 08:00 Room Air 06/23/17 07:25 36.4 60 20 143/92 (109) 96 Room Air 06/23/17 04:00 36.7 53 120/59 (79) 93 Room Air 06/23/17 04:00 93 Room Air 06/23/17 00:00 36.7 58 132/67 (88) 93 Room Air High Flow Oxygen 06/23/17 00:00 93 Room Air 06/22/17 20:00 95 Room Air 06/22/17 19:32 36.8 60 18 133/65 (87) 95 Room Air 06/22/17 18:00 55 18 132/65 Room Air 94 06/22/17 17:20 58 16 153/62 95 Room Air 06/22/17 15:47 62 20 127/58 96 Room Air 06/22/17 14:30 55 16 154/57 95 Room Air 06/22/17 13:30 59 14 143/57 96 Room Air 06/22/17 12:30 57 20 129/61 94 Room Air 06/22/17 12:23 52 06/22/17 11:12 36.6 62 18 119/79 97 Room Air Lab Results: Results Past 24 Hours Test 06/22/17 11:29 06/22/17 11:37 06/22/17 20:02 06/23/17 06:21 Range/Units White Blood Count 11.81 8.27 4.8-10.8 K/uL Red Blood Count 4.41 3.81 4.2-5.4 M/uL Hemoglobin 13.8 11.7 12.0-16.0 g/dL Hematocrit 39.1 34.8 37-47 % Mean Corpuscular Volume 88.7 91.3 80-100 fL Mean Corpuscular Hemoglobin 31.3 30.7 25-34 pg Mean Corpuscular Hemoglobin Concent 35.3 33.6 32-36 g/dl Platelet Count 243 205 130-400 K/uL Mean Platelet Volume 9.9 10.1 7.4-10.4 fL Neutrophils (%) (Auto) 80.9 54.7 % Lymphocytes (%) (Auto) 12.0 30.1 % Monocytes (%) (Auto) 6.6 12.1 % Eosinophils (%) (Auto) 0.0 2.1 % Basophils (%) (Auto) 0.2 0.8 % Neutrophils # (Auto) 9.55 4.52 1.4-6.5 K/uL Lymphocytes # (Auto) 1.42 2.49 1.2-3.4 K/uL Monocytes # (Auto) 0.78 1.00 0.11-0.59 K/uL Eosinophils # (Auto) 0.00 0.17 0-0.5 K/uL Basophils # (Auto) 0.02 0.07 0-0.2 K/uL RDW Standard Deviation 44.0 46.5 36.4-46.3 fL RDW Coefficient of Variation 13.4 13.9 11.5-14.5 % Immature Granulocyte % (Auto) 0.3 0.2 % Immature Granulocyte # (Auto) 0.04 0.02 0.00-0.02 K/uL Prothrombin Time 10.7 9.0-12.0 SECONDS Prothromb Time International Ratio 1.0 0.9-1.1 Activated Partial Thromboplast Time 24.2 21.0-31.0 SECONDS Partial Thromboplastin Ratio 0.9 Sodium Level 133 137 137 136-145 mmol/L Potassium Level 2.6 3.0 3.5 3.5-5.1 mmol/L Chloride Level 95 100 101 98-107 mmol/L Carbon Dioxide Level 32 31 29 21-32 mmol/L Anion Gap 6.0 6.0 7.0 3-11 mmol/L Blood Urea Nitrogen 14 11 12 7-18 mg/dl Creatinine 0.61 0.67 0.63 0.60-1.20 mg/dl Est Creatinine Clear Calc Drug Dose 77.6 70.7 75.0 ml/min Estimated GFR () 102.1 99.0 101.0 Estimated GFR (Non- 88.1 85.4 87.1 BUN/Creatinine Ratio 23.7 16.4 19.7 10-20 Random Glucose 122 114 94 70-99 mg/dl Calcium Level 9.2 8.2 8.5 8.5-10.1 mg/dl Phosphorus Level 2.9 2.5-4.9 mg/dl Magnesium Level 2.1 1.8-2.4 mg/dl Total Bilirubin 0.7 0.7 0.2-1 mg/dl Direct Bilirubin 0.1 0-0.2 mg/dl Aspartate Amino Transf (AST/SGOT) 19 14 15-37 U/L Alanine Aminotransferase (ALT/SGPT) 26 17 12-78 U/L Alkaline Phosphatase 64 49 45-117 U/L Total Creatine Kinase 104 67 26-192 U/L Total Protein 7.7 6.2 6.4-8.2 gm/dl Albumin 4.2 3.2 3.4-5.0 gm/dl Triglycerides Level 87 0-150 mg/dl Cholesterol Level 225 0-200 mg/dl HDL Cholesterol 78 mg/dl LDL Cholesterol, Calculated 130 mg/dl VLDL Cholesterol, Calculated 17 mg/dl Cholesterol/HDL Ratio 2.9 Lipase 178 73-393 U/L Bedside Troponin I < 0.030 0-0.045 ng/ml Creatine Kinase MB 0.8 0.5-3.6 ng/ml Creatine Kinase MB Ratio 1.2 0-3.0 Troponin I < 0.015 < 0.015 0-0.045 ng/ml Globulin 3.0 2.5-4.0 gm/dl Albumin/Globulin Ratio 1.1 0.9-2
[2017-06-23 11:25] VITALS: BP 146/63; PULSE 53; TEMP 36.7; O2SAT 96
[2017-06-23] MEDS ORDERED: MoRPHine SULFATE 2 MG/ML CARP ONE (15:50)
[2017-06-23 16:30] VITALS: BP 178/79; PULSE 55; TEMP 36.7; O2SAT 96
--- NOTE | 2017-06-23 16:38 | DIAGNOSTIC IMAGING REPORT ---
NUCLEAR MEDICINE HEPATOBILIARY SCAN CLINICAL HISTORY: Right upper quadrant abdominal pain. Cholelithiasis. COMPARISON STUDY: Abdominal ultrasound dated 06/22/2017 FINDINGS: The patient was injected with 5.4 mCi of technetium 99m Choletec. At 1 hour, 2 mg of intravenous morphine was administered. The patient was unable to lay flat the duration of the study and therefore static images were acquired. Images are somewhat limited in technical quality. The gallbladder was first visualized at 45 minute image. There is normal passage of activity into small bowel. IMPRESSION: No evidence of cystic duct obstruction. Electronically signed by: Kemal Woodard M.D. 06/23/2017 4:37 PM Dictated Date/Time: 06/23/2017 4:32 PM
[2017-06-23] MEDS: ACETAMINOPHEN 325 MG TAB PO PRN (19:43)
[2017-06-23] MEDS: RANITIDINE HCL 150 MG TAB PO SCH (19:43)
[2017-06-23 20:34] VITALS: BP 145/56; PULSE 59; TEMP 36.7; O2SAT 93
[2017-06-23] MEDS ORDERED: SIMVASTATIN 10 MG TAB PO SCH (21:00)
[2017-06-24 00:26] VITALS: BP 120/65; PULSE 61; TEMP 36.7; O2SAT 94
[2017-06-24 03:52] VITALS: BP 136/61; PULSE 59; TEMP 36.7; O2SAT 93
[2017-06-24 06:01] LABS: BASO % 1.1 %; BASO ABS # 0.08 K/uL (0-0.2); COMPLETE YES; EOS % 2.7 %; HEMATOCRIT 39.8 % (37-47); IG% 0.3 %; LYMPH % 37.4 %; LYMPH ABS # 2.64 K/uL (1.2-3.4); MEAN CELL VOLUME 93.2 fL (80-100); MEAN CORPUSCULAR HEMOGLOBIN 29.3 pg (25-34); MEAN CORPUSCULAR HGB CONC 31.4 g/dl (32-36); MEAN PLATELET VOLUME 9.8 fL (7.4-10.4); MONO % 10.8 %; NEUT % 47.7 %; PLATELET COUNT 217 K/uL (130-400); RED BLOOD COUNT 4.27 M/uL (4.2-5.4); WHITE BLOOD COUNT 7.06 K/uL (4.8-10.8)
[2017-06-24 06:34] LABS: BUN/CREATININE RATIO 27.9 (10-20); CALCIUM 8.7 mg/dl (8.5-10.1); CREATININE 0.62 mg/dl (0.60-1.20); MAGNESIUM 2.1 mg/dl (1.8-2.4); POTASSIUM 3.8 mmol/L (3.5-5.1)
[2017-06-24 08:44] VITALS: BP 152/75; PULSE 72; TEMP 36.6; O2SAT 95
--- NOTE | 2017-06-24 08:51 | Progress Note ---
Internal Med Progress Note Date of Service: Jun 24, 2017. Provider Documentation: SUBJECTIVE: Seen and examined at bedside. States epigastric discomfort is much improved with meds Denies nausea, vomiting, dysphagia, Denies chest pain, SOB Offers no other complaints OBJECTIVE: Vital Signs-as noted below Physical Exam: General Appearance:Moderately built and nourished, no apparent distress Head: normocephalic, Atraumatic Eyes: normal inspection, EOMI, PERRL Neck: supple, Trachea midline Respiratory/Chest: Normal breath sounds, CTA Cardiovascular: S1, S2, No murmur Abdomen/GI:Soft, RUQ and epigastric tender, Bowel sounds present Extremities/Musculoskelatal:normal inspection, Trace edema Neurologic/Psych:grossly no focal neurological deficits Skin: normal color, warm Lab data as noted below. ASSESSMENT & PLAN: Patient is 76 yr old female with HTN, dyslipidemia, H/O TIA, aortic thoracic aneurysm S/P aneurysm repair presents with Epigastric, RUQ pain, T wave inversions in lateral leads and hypokalemia RUQ, Epigastric Abd pain/? Atypical Chest pain Likely gastritis as Pain and belching improved with Zantac Troponin X3: Negative EKG:T wave changes in lateral leads, repeat EKG: T wave changes normalized CXR:No acute process ABD USD: Mild gallbladder distention with cholelithiasis HIDA scan: normal Continue Ranitidine LFTs:wnl, Afebrile, WBC:wnl ECHO:The left ventricular wall motion is normal. H/O TIA with no residual weakness Continue ASA, Statins H/O aortic/thoracic aneurysm Stable Hypertension continue atenolol hold chlorthalidone for now Hypokalemia Likely secondary to diuretics Replace and monitor H/O chronic recurrent headache ? Migraine Takes Tylenol PRN DVT px: SCDs Code Status: Full Code Disposition: Plan to discharge home today Follow up with for Primary Care on 06/30/17 at 10:25AM Follow up with your second cutter in 2-4 weeks as advised for possible stress test Seek immediate medical attention if your symptoms reoccur or worsen PROCEDURES: ECHO: n There is borderline asymmetric left ventricular hypertrophy. n Left ventricular systolic function is normal. n Mild to moderate aortic regurgitation. n There is mild mitral regurgitation. n Compared to a study from 2010, the degree of aortic regurgitation does not appear severe. ABD USD: 1. Mild gallbladder distention is noted with cholelithiasis. No gallbladder wall thickening or pericholecystic fluid collections were seen. The patient was given pain medication prior to the study, therefore a sonographic Lilly sign was unable to be obtained. If there is concern for acute cholecystitis, a nuclear medicine hepatobiliary scan may be considered. 2. No biliary ductal dilation. 3. Mild fusiform aneurysmal dilation of the abdominal aorta is seen measuring up to 3.3 cm. There is associated atherosclerotic vascular disease. 4. Mildly complex left renal cyst is seen, 2.3 cm. Vital Signs: Date Time Temp Pulse Resp B/P (MAP) Pulse Ox O2 Delivery O2 Flow Rate FiO2 06/24/17 04:00 Room Air 06/24/17 03:52 36.7 59 17 136/61 (86) 93 Room Air 06/24/17 00:26 36.7 61 17 120/65 (83) 94 Room Air 06/24/17 00:00 Room Air 06/23/17 20:34 36.7 59 20 145/56 (85) 93 Room Air 06/23/17 20:00 Room Air 06/23/17 16:30 36.7 55 16 178/79 (112) 96 06/23/17 16:30 Room Air 06/23/17 12:00 Room Air 06/23/17 11:25 36.7 53 20 146/63 (90) 96 Room Air Lab Results: Results Past 24 Hours Test 06/23/17 11:00 06/23/17 11:15 06/24/17 05:33 Range/Units Creatine Kinase MB Ratio 0-3.0 Creatine Kinase MB 1.6 0.5-3.6 ng/ml Troponin I < 0.015 0-0.045 ng/ml White Blood Count 7.06 4.8-10.8 K/uL Red Blood Count 4.27 4.2-5.4 M/uL Hemoglobin 12.5 12.0-16.0 g/dL Hematocrit 39.8 37-47 % Mean Corpuscular Volume 93.2 80-100 fL Mean Corpuscular Hemoglobin 29.3 25-34 pg Mean Corpuscular Hemoglobin Concent 31.4 32-36 g/dl Platelet Count 217 130-400 K/uL Mean Platelet Volume 9.8 7.4-10.4 fL Neutrophils (%) (Auto) 47.7 % Lymphocytes (%) (Auto) 37.4 % Monocytes (%) (Auto) 10.8 % Eosinophils (%) (Auto) 2.7 % Basophils (%) (Auto) 1.1 % Neutrophils # (Auto) 3.37 1.4-6.5 K/uL Lymphocytes # (Auto) 2.64 1.2-3.4 K/uL Monocytes # (Auto) 0.76 0.11-0.59 K/uL Eosinophils # (Auto) 0.19 0-0.5 K/uL Basophils # (Auto) 0.08 0-0.2 K/uL RDW Standard Deviation 47.3 36.4-46.3 fL RDW Coefficient of Variation 13.9 11.5-14.5 % Immature Granulocyte % (Auto) 0.3 % Immature Granulocyte # (Auto) 0.02 0.00-0.02 K/uL Sodium Level 140 136-145 mmol/L Potassium Level 3.8 3.5-5.1 mmol/L Chloride Level 103 98-107 mmol/L Carbon Dioxide Level 30 21-32 mmol/L Anion Gap 7.0 3-11 mmol/L Blood Urea Nitrogen 17 7-18 mg/dl Creatinine 0.62 0.60-1.20 mg/dl Est Creatinine Clear Calc Drug Dose 76.2 ml/min Estimated GFR () 101.5 Estimated GFR (Non- 87.6 BUN/Creatinine Ratio 27.9 10-20 Random Glucose 96 70-99 mg/dl Calcium Level 8.7 8.5-10.1 mg/dl Magnesium Level 2.1 1.8-2.4 mg/dl
[2017-06-24] MEDS ORDERED: ZNT150 PO (08:53)
--- NOTE | 2017-06-24 08:56 | Discharge Summary ---
Discharge Summary Date of Service Jun 24, 2017. Discharge Summary Admission Date: Jun 22, 2017 at 18:53 Discharge Date: Jun 24, 2017 Discharge Disposition: Home Principal Diagnosis: Epigastric pain likely gastritis Procedures: None Consultations: CXR: No acute process ABD USD: 1. Mild gallbladder distention is noted with cholelithiasis. No gallbladder wall thickening or pericholecystic fluid collections were seen. The patient was given pain medication prior to the study, therefore a sonographic Lilly sign was unable to be obtained. If there is concern for acute cholecystitis, a nuclear medicine hepatobiliary scan may be considered. 2. No biliary ductal dilation. 3. Mild fusiform aneurysmal dilation of the abdominal aorta is seen measuring up to 3.3 cm. There is associated atherosclerotic vascular disease. 4. Mildly complex left renal cyst is seen, 2.3 cm. HIDA scan: No evidence of cystic duct obstruction Pending Studies/Follow-Up: Follow up with for Primary Care on 06/30/17 at 10:25AM Follow up with your director funds development in 2-4 weeks as advised for possible stress test Seek immediate medical attention if your symptoms reoccur or worsen Discuss with about possible need for Endoscopy/GI evaluation as outpatient Medication Reconciliation New Medications: Ranitidine HCl (Ranitidine HCl) 150 Mg Tab 150 MG PO BID for 14 Days, #28 TAB Continued Medications: Acetaminophen/Hydrocodone (Hydrocodone/Acetaminophen 5-325 mg) 1 Ea Tab 1 TAB PO Q4H PRN for Pain Aspirin (Aspirin Ec) 325 Mg Tab 325 MG PO DAILY Atenolol & Chlorthalidone (Tenoretic 50MG/25MG) 1 Tab Tab 1 TAB PO DAILY, TAB Calcium Carbonate-Cholecalcife (Caltrate 600+D) 1 Tab Tab 1 TAB PO DAILY Gabapentin (Gabapentin) 100 Mg Cap 100-400 MG PO UD PRN for NEUROPATHY, #90 Multiple Vitamin (Multivitamin) 1 Tab Tab 1 TAB PO DAILY, TAB Potassium Chloride (Micro-K Ext Rel) 10 Meq Capcr 20 MEQ PO BID, CAP Simvastatin (Zocor) 10 Mg Tab 10 MG PO QPM, TAB Admission Information HPI (per Admitting provider): 76 year old F with HTN, dyslipidemia, PMH of TIA around 2 to 3 months ago and on aspirin 324 mg at home, history of aortic thoracic aneurysm with sternotomy wires visualized on Chest X ray of past surgical history of aneurysm repair with presentation to ED for chest pain that is midsternal between the breast above the abdomen that is nonradiating. No reported diaphoresis or shortness of breath. Symptoms for around 3 days with pain not changing when sitting, standing or lying down. Pain has been disrupting her sleep. Also associated with nausea and vomiting vs gastric reflux. Patient's initial troponin negative x 1 however seen to have EKG with T wave inversions and flattening in V3 to V6 and sinus bradycardia. Also hypokalemic to 2.6 Review of home medications significant for diuretic for hypertension (atenolol/chlorthalidone combination drug) and patient has been on potassium supplements from her primary medication doctor. Patient reporting medication adherence. Physical Exam (per Admitting): General Appearance: no apparent distress Head: normocephalic, atraumatic Eyes: normal inspection, PERRL, EOMI, sclerae normal ENT: hearing grossly normal, pharynx normal Neck: supple, no JVD, no carotid bruits, trachea midline Respiratory/Chest: chest non-tender, lungs clear, normal breath sounds, no respiratory distress, no accessory muscle use Cardiovascular: no edema, no JVD, normal peripheral pulses Abdomen/GI: normal bowel sounds, non tender, soft, no pulsatile mass Extremities/Musculoskelatal: normal inspection, no calf tenderness, normal capillary refill, no pedal edema, normal range of motion Neurologic/Psych: no motor/sensory deficits, alert, oriented x 3 Skin: normal color, warm/dry, no rash Hospital Course Patient is 76 yr old female with HTN, dyslipidemia, H/O TIA, aortic thoracic aneurysm S/P aneurysm repair presents with Epigastric, RUQ pain, T wave inversions in lateral leads and hypokalemia RUQ, Epigastric Abd pain/? Atypical Chest pain Likely gastritis as Pain and belching improved with Zantac Troponin X3: Negative EKG:T wave changes in lateral leads, repeat EKG: T wave changes normalized CXR:No acute process ABD USD: Mild gallbladder distention with cholelithiasis HIDA scan: normal Continue Ranitidine LFTs:wnl, Afebrile, WBC:wnl ECHO:The left ventricular wall motion is normal. H/O TIA with no residual weakness Continue ASA, Statins H/O aortic/thoracic aneurysm Stable Hypertension continue atenolol hold chlorthalidone for now Hypokalemia Likely secondary to diuretics Replace and monitor H/O chronic recurrent headache ? Migraine Takes Tylenol PRN DVT px: SCDs Code Status: Full Code Disposition: Plan to discharge home today Follow up with for Primary Care on 06/30/17 at 10:25AM Follow up with your director funds development in 2-4 weeks as advised for possible stress test Seek immediate medical attention if your symptoms reoccur or worsen PROCEDURES: ECHO: n There is borderline asymmetric left ventricular hypertrophy. n Left ventricular systolic function is normal. n Mild to moderate aortic regurgitation. n There is mild mitral regurgitation. n Compared to a study from 2010, the degree of aortic regurgitation does not appear severe. ABD USD: 1. Mild gallbladder distention is noted with cholelithiasis. No gallbladder wall thickening or pericholecystic fluid collections were seen. The patient was given pain medication prior to the study, therefore a sonographic Lilly sign was unable to be obtained. If there is concern for acute cholecystitis, a nuclear medicine hepatobiliary scan may be considered. 2. No biliary ductal dilation. 3. Mild fusiform aneurysmal dilation of the abdominal aorta is seen measuring up to 3.3 cm. There is associated atherosclerotic vascular disease. 4. Mildly complex left renal cyst is seen, 2.3 cm. Total time spent on discharge = This includes examination of the patient, discharge planning, medication reconciliation, and communication with other providers. Discharge Instructions Discharge Instructions Date of Service Jun 24, 2017. Admission Reason for Admission: Chest Pain Discharge Discharge Diagnosis / Problem: Epigastric pain likely gastritis Discharge Goals Goal(s): Decrease discomfort, Improve function Activity Recommendations Activity Limitations: resume your previous activity Exercise/Sports Limitations: as tolerated . Instructions / Follow-Up Instructions / Follow-Up Follow up with for Primary Care on 06/30/17 at 10:25AM Follow up with your director funds development in 2-4 weeks as advised for possible stress test Seek immediate medical attention if your symptoms reoccur or worsen Discuss with about possible need for Endoscopy/GI evaluation as outpatient Current Hospital Diet Patient's current hospital diet: AHA Diet (Heart Healthy) Discharge Diet Recommended Diet: AHA Diet (Heart Healthy) Pending Studies Studies pending at discharge: no Laboratory Results Lipid Panel Test 06/22/17 11:29 Range/Units Triglycerides Level 87 0-150 mg/dl Cholesterol Level 225 H 0-200 mg/dl HDL Cholesterol 78 mg/dl Cholesterol/HDL Ratio 2.9 LDL Cholesterol, Calculated 130 mg/dl Medical Emergencies . Who to Call and When: Medical Emergencies: If at any time you feel your situation is an emergency, please call 911 immediately. . Non-Emergent Contact Non-Emergency issues call your: Primary Care Provider, Wad Blanking Press Adjuster Call Non-Emergent contact if: you have a fever, your pain is not controlled, your pain is worsening, your pain is unusual for you, you have any medication questions Seek immediate medical attention if your symptoms reoccur or worsen . . "Provider Documentation" section prepared by Jamil Tello. . VTE Core Measure Inpt VTE Proph given/why not?: SCD's
[2017-06-24] MEDS: RANITIDINE HCL 150 MG TAB PO SCH (09:16)
[2017-06-24] MEDS: ASPIRIN 325 MG ECTAB PO SCH (09:16)
[2017-06-24 09:30] VITALS: BP 152/75; PULSE 72; TEMP 36.6; O2SAT 95
== END 2017-06-24 10:50 | disposition home or self-care (01) ==
LOC: C.EDB 11:11 → C.2E 16:19 → UNDOADMOB 16:19 → ENRESERV 16:46 → C.2E 18:53
PROVIDERS: ADMIT Hospitalist; ATTEND Internal Medicine
DX: R10.13 Epigastric pain (principal); R07.89 Other chest pain; I10 Essential (primary) hypertension; E78.5 Hyperlipidemia, unspecified; M81.0 Age-related osteoporosis without current pathological fracture; E78.00 Pure hypercholesterolemia, unspecified; Z87.891 Personal history of nicotine dependence; Z79.82 Long term (current) use of aspirin; Z79.899 Other long term (current) drug therapy; Z86.73 Personal history of transient ischemic attack (TIA), and cerebral infarction without residual deficits

== ENCOUNTER 2019-06-03 15:52 | Inpatient (IN) ==
[2019-06-03] MEDS ORDERED: CLINDAMYCIN 300 MG in DEXTROSE 5% 50 ML IV ONE (16:05)
[2019-06-03] MEDS ORDERED: fentaNYL citrate 100 MCG/2 ML VIAL IV STA (16:07)
[2019-06-03] MEDS: SODIUM CHLORIDE 0.9% 1000ML 1,000 ML IV SCH (16:15)
[2019-06-03] MEDS ORDERED: PROPOFOL IV EMULSION 10 MG/ML 20 ML VIAL IV ONE ×2 (16:16→21:40)
--- NOTE | 2019-06-03 16:49 | XRay Report ---
XR ankle RT 2V CLINICAL HISTORY: 78 years-old Female presenting with post reduction. TECHNIQUE: Frontal and crosstable lateral views of the right ankle were obtained. COMPARISON: None. FINDINGS: A fiberglass cast or splint is in place. Mildly comminuted fracture of the distal fibular metaphysis at the level of the syndesmosis. There is partial obscuration of underlying osseous detail. Less than one half shaft width lateral and anterior displacement of the distal fibular fracture fragment. Chambers sversely oriented fracture of the medial malleolus with significant displacement of the tibia relativ e to the malleolus. There is complete disruption of the ankle mortise. Presumably a nondisplaced post erior malleolus fracture or ligamentous disruption is present. Underlying osteopenia. No radiographic soft tissue abnormality. IMPRESSION: Disruption of the ankle mortise with grade 4 pronation external rotation injury. Presumably a trimall eolar fracture with a nondisplaced posterior malleolar fracture. Electronically signed by: Jared Browning M.D. 06/03/2019 4:48 PM
[2019-06-03] MEDS ORDERED: DIPHTHERIA/TETANUS/PERTUSSIS 0.5 ML SYR/VIAL IM ONE (16:57)
--- NOTE | 2019-06-03 17:18 | History & Physical Report ---
Date of Service June 03, 2019 History of Present Illness Primary Care Provider: Pearl Benjamin MD Open Ankle Fracture from Fall Allergies Allergy/AdvReac Type Severity Reaction Status Date / Time mivacurium Allergy Severe THROAT Verified 07/20/18 11:59 SWELLS penicillin V Allergy Mild CAN TAKE Verified 07/20/18 11:59 PO PCN/AMOX W/O PROBLEM; ARM SWELLED W/ PCN SHOT Bactrim Allergy Unknown Hives Unverified 06/22/17 11:40 sulfamethoxazole Allergy Unknown Hives Unverified 07/20/18 11:59 trimethoprim Allergy Unknown Hives Unverified 07/20/18 11:59 Home Medications Home Medications Medication Instructions Recorded Confirmed Type aspirin 325 mg PO DAILY 07/20/18 07/20/18 History atenolol-chlorthalidone 1 tab PO DAILY 07/20/18 07/20/18 History hydrocodone-acetaminophen 1 tab PO Q4 PRN 07/20/18 07/20/18 History potassium chloride 10 meq PO BID 07/20/18 07/20/18 History simvastatin 1 tab PO DAILY 07/20/18 07/20/18 History Past Med/Surg History Medical History Chest pain (Acute) Contusion of leg, left, multiple sites (Acute) Contusion of leg, left, multiple sites (Acute) Left wrist fracture (Acute) Traumatic hematoma of right lower leg (Acute) Family History Other Family history non-contributory Social History Preferred Language: Mauritanian Feels Safe at Home: Yes Smoking Status: Former smoker Hx Substance Use: No ASA Classification ASA ASA2 Results & Data Vital Signs (Past 12 Hours) Vital Signs Temp Pulse Resp Pulse Ox 06/03/19 15:39 36.9 C 75 18 96
--- NOTE | 2019-06-03 17:21 | History & Physical Report ---
Date of Service June 03, 2019 History of Present Illness Chief Complaint: Right Open Ankle Fracture Primary Care Provider: Pearl Benjamin MD Open ANkle Fracture Allergies Allergy/AdvReac Type Severity Reaction Status Date / Time mivacurium Allergy Severe THROAT Verified 07/20/18 11:59 SWELLS penicillin V Allergy Mild CAN TAKE Verified 07/20/18 11:59 PO PCN/AMOX W/O PROBLEM; ARM SWELLED W/ PCN SHOT Bactrim Allergy Unknown Hives Unverified 06/22/17 11:40 sulfamethoxazole Allergy Unknown Hives Unverified 07/20/18 11:59 trimethoprim Allergy Unknown Hives Unverified 07/20/18 11:59 Home Medications Home Medications Medication Instructions Recorded Confirmed Type aspirin 325 mg PO DAILY 07/20/18 07/20/18 History atenolol-chlorthalidone 1 tab PO DAILY 07/20/18 07/20/18 History hydrocodone-acetaminophen 1 tab PO Q4 PRN 07/20/18 07/20/18 History potassium chloride 10 meq PO BID 07/20/18 07/20/18 History simvastatin 1 tab PO DAILY 07/20/18 07/20/18 History Past Med/Surg History Medical History Chest pain (Acute) Contusion of leg, left, multiple sites (Acute) Contusion of leg, left, multiple sites (Acute) Left wrist fracture (Acute) Traumatic hematoma of right lower leg (Acute) Family History Other Family history non-contributory Social History Preferred Language: Finnish Feels Safe at Home: Yes Smoking Status: Former smoker Hx Substance Use: No Review of Systems All systems reviewed & are unremarkable except as noted in HPI & below Physical Exam Physical Exam: Right Ankle In Splint. Acceptable alignment. N/V Intact. ASA Classification ASA ASA2 Results & Data Vital Signs (Past 12 Hours) Vital Signs Temp Pulse Resp Pulse Ox 06/03/19 15:39 36.9 C 75 18 96 Code Status & VTE Plan VTE Prophylaxis Plan VTE Prophylaxis will be ordered: Yes
[2019-06-03] MEDS ORDERED: CEFAZOLIN 2000MG 2,000 MG/15 ML SYR IV ONE (17:22)
[2019-06-03] MEDS ORDERED: ONDANSETRON INJ 2 MG/ML 2 ML VIAL IV STA (17:37)
[2019-06-03] MEDS ORDERED: HYDROmorphone INJ 1 MG/ML SYRINGE IV STA (17:37)
[2019-06-03 17:41] LABS: Basophils # (auto) 0.09 K/uL (0-0.2); Eosinophils # (auto) 0.22 K/uL (0-0.5); Eosinophils % (auto) 2.3 %; Hematocrit (blood only) 35.8 % (37-47); Hemoglobin 12.1 g/dL (12.0-16.0); Immature Granulocytes # (auto) 0.01 K/uL (0.00-0.02); Immature Granulocytes % (auto) 0.1 %; Lymphocytes # (auto) 1.64 K/uL (1.2-3.4); Lymphocytes % (auto) 17.4 %; Mean Corpuscular Hgb Conc 33.8 g/dL (32-36); Mean Corpuscular Volume 91.3 fL (80-100); Mean Platelet Volume 9.5 fL (7.4-10.4); Monocytes # (auto) 0.84 K/uL (0.11-0.59); Monocytes % (auto) 8.9 %; Neutrophils # (auto) 6.61 K/uL (1.4-6.5); Neutrophils % (auto) 70.3 %; Platelet Count 246 K/uL (130-400); RDW Standard Deviation 43.3 fL (36.4-46.3); Red Blood Count 3.92 M/uL (4.2-5.4); White Blood Count 9.41 K/uL (4.8-10.8)
[2019-06-03 17:53] LABS: INR 1.1 (0.9-1.1); Partial Thromboplastin Ratio 0.9; Partial Thromboplastin Time 25.2 Seconds (21.0-31.0); Prothrombin Time 10.9 Seconds (9.0-12.0)
[2019-06-03 18:01] LABS: BUN Creatinine Ratio 25.9 (10-20); Calcium 8.6 mg/dl (8.5-10.1); Est GFR (African American) 98.1; Est GFR (Non-African American) 84.6
[2019-06-03] MEDS ORDERED: POTASSIUM CHLORIDE 20 MEQ TABCR PO STA (18:38)
[2019-06-03] MEDS: POTASSIUM CHLORIDE / WTR 10 MEQ/100 ML PLCT IV SCH ×2 (19:03→20:01)
[2019-06-03] MEDS ORDERED: ROPIVACAINE 0.5% 5 MG/ML 30 ML VIAL ONE (20:25)
[2019-06-03] MEDS ORDERED: SODIUM CHLORIDE 0.9% INJ 10 ML VIAL ONE (20:26)
--- NOTE | 2019-06-03 20:43 | Anesthesiology Consultation ---
Date of Service June 03, 2019 Assessment & Plan (1) Encounter for pre-operative examination: Chart Review Chart Review: Acceptable Risk for Surgery (open fracture) History Surgery Operation Date: 06/03/19 11:35 Proposed Procedures p Right Open Reduction Internal Fixation with Incision and Drainage - Gerard Mtz MD Height/Weight Height: 5 ft 6 in Weight: 71.2 kg Allergies Allergy/AdvReac Type Severity Reaction Status Date / Time mivacurium Allergy Severe THROAT Verified 07/20/18 11:59 SWELLS penicillin V Allergy Mild CAN TAKE Verified 07/20/18 11:59 PO PCN/AMOX W/O PROBLEM; ARM SWELLED W/ PCN SHOT Bactrim Allergy Unknown Hives Unverified 06/22/17 11:40 sulfamethoxazole Allergy Unknown Hives Unverified 07/20/18 11:59 trimethoprim Allergy Unknown Hives Unverified 07/20/18 11:59 Medications Home Medications Medication Instructions Recorded Confirmed Last Taken aspirin 325 mg PO DAILY 07/20/18 06/03/19 06/03/19 hydrocodone-acetaminophen 2 tab PO TID PRN 07/20/18 06/03/19 06/03/19 potassium chloride 10 meq PO BID 07/20/18 06/03/19 Unknown simvastatin 1 tab PO DAILY 07/20/18 06/03/19 06/03/19 atenolol-chlorthalidone 1 tab PO DAILY 06/03/19 06/03/19 06/03/19 calcium carbonate [Calcium 500] 500 mg PO DAILY 06/03/19 06/03/19 Unknown furosemide 20 mg PO DAILY PRN 06/03/19 06/03/19 Unknown gabapentin 200 mg PO BID 06/03/19 06/03/19 Unknown losartan-hydrochlorothiazide 1 tab PO DAILY 06/03/19 06/03/19 Unknown multivitamin 1 tab PO DAILY 06/03/19 06/03/19 Unknown sertraline 100 mg PO DAILY 06/03/19 06/03/19 Unknown Active Medications Generic Name Dose Route Start Last Admin Trade Name Freq PRN Reason Stop Dose Admin Sodium Chloride 1,000 mls @ 125 mls/hr 06/03/19 16:15 06/03/19 16:15 Nss 1000ml IV 07/03/19 16:14 125 mls/hr .Q8H JOSE Administration Past Medical History Medical History Chest pain (Resolved) Contusion of leg, left, multiple sites (Acute) Contusion of leg, left, multiple sites (Acute) Left wrist fracture (Resolved) Traumatic hematoma of right lower leg (Acute) Breast CA Past Family History Family History Other Family history non-contributory Past Surgical History Surgical History History of open reduction and internal fixation (ORIF) procedure wrist Hx of breast surgery Hx of cataract surgery Social History Smoking Status: Former smoker Hx Substance Use: No substance use type: does not use Physical Exam Vital Signs Last Vital Signs Temp 36.6 C 06/03/19 17:10 Pulse 62 06/03/19 20:00 Resp 18 06/03/19 17:10 BP 160/69 H 06/03/19 20:00 Pulse Ox 91 06/03/19 20:00 Testing Laboratory Results 06/03/19 17:30 06/03/19 19:27 PT 10.9 Seconds (9.0-12.0) 06/03/19 17:30 INR 1.1 (0.9-1.1) 06/03/19 17:30 APTT 25.2 Seconds (21.0-31.0) 06/03/19 17:30 Electrocardiogram Date: 06/03/19 Findings: + SB @ (58 slow R progression)
--- NOTE | 2019-06-03 21:05 | Emergency Department Note ---
Entered by Rayray Tejada acting as a scribe for Kane Solis History of Present Illness General Chief complaint: Ankle Pain Time Seen by Provider: 06/03/19 16:00 Source: patient History of Present Illness Provider complaint: Ankle pain Onset (ago): hour(s) (Just prior to arrival ) Location: ankle and right Pain Consistency: + constant Relieved By: + none Exacerbated By: + none Associated symptoms: no headaches and no syncope The patient is a 78 year old female who presents to the Emergency Room with complaints of constant right ankle pain after injuring it while stepping out of a tractor trailer resulting in an open fracture. The patient states she was stepping down from the truck when the bucket she was going to land on kicked out causing the patient to land directly on her everted right ankle. The patient denies hitting her head or losing consciousness. She also denies any pain at this time and notes she did not receive any medication from EMS en route. The patient is on Aspirin daily but no other blood thinning medication. She notes she does have chronic back pain, but denies any new pain since the incident. Home Medications Home Medications Medication Instructions Recorded Confirmed Type aspirin 325 mg PO DAILY 07/20/18 06/03/19 History hydrocodone-acetaminophen 2 tab PO TID PRN 07/20/18 06/03/19 History potassium chloride 10 meq PO BID 07/20/18 06/03/19 History simvastatin 1 tab PO DAILY 07/20/18 06/03/19 History atenolol-chlorthalidone 1 tab PO DAILY 06/03/19 06/03/19 History calcium carbonate [Calcium 500] 500 mg PO DAILY 06/03/19 06/03/19 History furosemide 20 mg PO DAILY PRN 06/03/19 06/03/19 History gabapentin 200 mg PO BID 06/03/19 06/03/19 History losartan-hydrochlorothiazide 1 tab PO DAILY 06/03/19 06/03/19 History multivitamin 1 tab PO DAILY 06/03/19 06/03/19 History sertraline 100 mg PO DAILY 06/03/19 06/03/19 History Allergies Allergy/AdvReac Type Severity Reaction Status Date / Time mivacurium Allergy Severe THROAT Verified 07/20/18 11:59 SWELLS penicillin V Allergy Mild CAN TAKE Verified 07/20/18 11:59 PO PCN/AMOX W/O PROBLEM; ARM SWELLED W/ PCN SHOT Bactrim Allergy Unknown Hives Unverified 06/22/17 11:40 sulfamethoxazole Allergy Unknown Hives Unverified 07/20/18 11:59 trimethoprim Allergy Unknown Hives Unverified 07/20/18 11:59 Past Med/Surg History Medical History Chest pain (Resolved) Contusion of leg, left, multiple sites (Acute) Contusion of leg, left, multiple sites (Acute) Left wrist fracture (Resolved) Traumatic hematoma of right lower leg (Acute) Breast CA Surgical History History of open reduction and internal fixation (ORIF) procedure wrist Hx of breast surgery Hx of cataract surgery Family History Other Family history non-contributory Social History Preferred Language: [place] Island[place] Feels Safe at Home: Yes Smoking Status: Former smoker Hx Substance Use: No Review of Systems See HPI for pertinent positives & negatives. and A total of 10 systems reviewed and were otherwise negative Physical Exam Vital Signs Vital Signs - 24 hr 06/03/19 15:39 06/03/19 16:14 06/03/19 16:30 Temperature 36.9 C Temperature Source Oral Sepsis Recent Fever Within 48 Hours No Sepsis Action Taken by Nursing No Action Required End-Tidal CO2 23 Pulse Rate 75 64 62 Pulse Rate [Left Apical] Pulse Rate from SpO2 Sensor 62 Pulse Rhythm Regular Pulse Rhythm [Left Apical] Pulse Strength Normal Pulse Strength [Left Apical] Respiratory Rate 18 20 Respiratory Effort / Characteristics Non-Labored Spontaneous Non-Labored Spontaneous Respiratory Depth Normal Normal Respiratory Pattern Regular Blood Pressure 184/77 H Blood Pressure Mean 112 Blood Pressure Position Lying Pulse Oximetry 96 99 Oxygen Delivery Method Room Air Oxygen Flow Rate 06/03/19 16:32 06/03/19 16:35 06/03/19 16:36 Temperature Temperature Source Sepsis Recent Fever Within 48 Hours Sepsis Action Taken by Nursing End-Tidal CO2 26 35 32 Pulse Rate 64 61 63 Pulse Rate [Left Apical] Pulse Rate from SpO2 Sensor 63 61 62 Pulse Rhythm Pulse Rhythm [Left Apical] Pulse Strength Pulse Strength [Left Apical] Respiratory Rate Respiratory Effort / Characteristics Respiratory Depth Respiratory Pattern Blood Pressure 130/66 130/63 138/67 Blood Pressure Mean 87 85 90 Blood Pressure Position Pulse Oximetry 98 100 100 Oxygen Delivery Method Oxygen Flow Rate 06/03/19 16:40 06/03/19 16:41 06/03/19 16:43 Temperature Temperature Source Sepsis Recent Fever Within 48 Hours Sepsis Action Taken by Nursing End-Tidal CO2 28 16 Pulse Rate 59 L 58 L Pulse Rate [Left Apical] Pulse Rate from SpO2 Sensor 59 L 58 L Pulse Rhythm Pulse Rhythm [Left Apical] Pulse Strength Pulse Strength [Left Apical] Respiratory Rate Respiratory Effort / Characteristics Non-Labored Spontaneous Respiratory Depth Normal Respiratory Pattern Blood Pressure 163/67 H 157/70 H Blood Pressure Mean 99 99 Blood Pressure Position Pulse Oximetry 100 100 Oxygen Delivery Method Nasal Cannula Oxygen Flow Rate 4 06/03/19 16:45 06/03/19 16:50 06/03/19 16:53 Temperature Temperature Source Sepsis Recent Fever Within 48 Hours Sepsis Action Taken by Nursing End-Tidal CO2 39 24 39 Pulse Rate 57 L 57 L 57 L Pulse Rate [Left Apical] Pulse Rate from SpO2 Sensor 57 L 56 L 56 L Pulse Rhythm Pulse Rhythm [Left Apical] Pulse Strength Pulse Strength [Left Apical] Respiratory Rate Respiratory Effort / Characteristics Non-Labored Spontaneous Respiratory Depth Normal Respiratory Pattern Blood Pressure 165/71 H 170/77 H 178/78 H Blood Pressure Mean 102 108 111 Blood Pressure Position Pulse Oximetry 100 100 97 Oxygen Delivery Method Nasal Cannula Nasal Cannula Oxygen Flow Rate 4 4 06/03/19 16:55 06/03/19 16:56 06/03/19 16:59 Temperature Temperature Source Sepsis Recent Fever Within 48 Hours Sepsis Action Taken by Nursing End-Tidal CO2 34 37 Pulse Rate 58 L 55 L Pulse Rate [Left Apical] Pulse Rate from SpO2 Sensor 58 L 55 L Pulse Rhythm Pulse Rhythm [Left Apical] Pulse Strength Pulse Strength [Left Apical] Respiratory Rate Respiratory Effort / Characteristics Non-Labored Spontaneous Respiratory Depth Normal Respiratory Pattern Regular Blood Pressure 174/84 H 175/88 H Blood Pressure Mean 114 117 Blood Pressure Position Pulse Oximetry 99 96 Oxygen Delivery Method Room Air Oxygen Flow Rate 06/03/19 17:00 06/03/19 17:03 06/03/19 17:05 Temperature Temperature Source Sepsis Recent Fever Within 48 Hours Sepsis Action Taken by Nursing End-Tidal CO2 37 Pulse Rate 67 Pulse Rate [Left Apical] Pulse Rate from SpO2 Sensor 68 Pulse Rhythm Pulse Rhythm [Left Apical] Pulse Strength Pulse Strength [Left Apical] Respiratory Rate Respiratory Effort / Characteristics Non-Labored Spontaneous Non-Labored Spontaneous Respiratory Depth Normal Normal Respiratory Pattern Regular Regular Blood Pressure 184/74 H Blood Pressure Mean 110 Blood Pressure Position Pulse Oximetry 96 Oxygen Delivery Method Room Air Room Air Oxygen Flow Rate 06/03/19 17:06 06/03/19 17:08 06/03/19 17:10 Temperature 36.6 C Temperature Source Oral Sepsis Recent Fever Within 48 Hours Sepsis Action Taken by Nursing End-Tidal CO2 39 36 Pulse Rate 69 56 L Pulse Rate [Left Apical] 58 L Pulse Rate from SpO2 Sensor 68 55 L Pulse Rhythm Pulse Rhythm [Left Apical] Regular Pulse Strength Pulse Strength [Left Apical] Normal Respiratory Rate 18 Respiratory Effort / Characteristics Non-Labored Spontaneous Respiratory Depth Normal Respiratory Pattern Regular Blood Pressure 204/80 H 205/87 H Blood Pressure Mean 121 126 Blood Pressure Position Pulse Oximetry 97 97 96 Oxygen Delivery Method Room Air Oxygen Flow Rate 06/03/19 17:11 06/03/19 17:13 06/03/19 17:16 Temperature Temperature Source Sepsis Recent Fever Within 48 Hours Sepsis Action Taken by Nursing End-Tidal CO2 38 38 35 Pulse Rate 56 L 62 60 Pulse Rate [Left Apical] Pulse Rate from SpO2 Sensor 56 L 58 L 61 Pulse Rhythm Pulse Rhythm [Left Apical] Pulse Strength Pulse Strength [Left Apical] Respiratory Rate Respiratory Effort / Characteristics Respiratory Depth Respiratory Pattern Blood Pressure 187/79 H 190/80 H 205/74 H Blood Pressure Mean 115 116 117 Blood Pressure Position Pulse Oximetry 98 91 91 Oxygen Delivery Method Oxygen Flow Rate 06/03/19 17:19 06/03/19 17:21 06/03/19 17:31 Temperature Temperature Source Sepsis Recent Fever Within 48 Hours Sepsis Action Taken by Nursing End-Tidal CO2 38 32 35 Pulse Rate 57 L 59 L 60 Pulse Rate [Left Apical] Pulse Rate from SpO2 Sensor 58 L 58 L 61 Pulse Rhythm Pulse Rhythm [Left Apical] Pulse Strength Pulse Strength [Left Apical] Respiratory Rate Respiratory Effort / Characteristics Respiratory Depth Respiratory Pattern Blood Pressure 185/67 H 185/87 H 194/87 H Blood Pressure Mean 106 119 122 Blood Pressure Position Pulse Oximetry 94 97 95 Oxygen Delivery Method Oxygen Flow Rate 06/03/19 17:41 06/03/19 17:51 06/03/19 18:01 Temperature Temperature Source Sepsis Recent Fever Within 48 Hours Sepsis Action Taken by Nursing End-Tidal CO2 Pulse Rate 62 62 63 Pulse Rate [Left Apical] Pulse Rate from SpO2 Sensor 62 61 63 Pulse Rhythm Pulse Rhythm [Left Apical] Pulse Strength Pulse Strength [Left Apical] Respiratory Rate Respiratory Effort / Characteristics Respiratory Depth Respiratory Pattern Blood Pressure 195/94 H 185/105 H 175/75 H Blood Pressure Mean 127 131 108 Blood Pressure Position Pulse Oximetry 96 92 93 Oxygen Delivery Method Oxygen Flow Rate 06/03/19 18:31 06/03/19 18:41 06/03/19 18:51 Temperature Temperature Source Sepsis Recent Fever Within 48 Hours Sepsis Action Taken by Nursing End-Tidal CO2 Pulse Rate 63 59 L 64 Pulse Rate [Left Apical] Pulse Rate from SpO2 Sensor 62 59 L 69 Pulse Rhythm Pulse Rhythm [Left Apical] Pulse Strength Pulse Strength [Left Apical] Respiratory Rate Respiratory Effort / Characteristics Respiratory Depth Respiratory Pattern Blood Pressure 187/78 H 147/77 H 157/88 H Blood Pressure Mean 114 100 111 Blood Pressure Position Pulse Oximetry 91 95 90 Oxygen Delivery Method Oxygen Flow Rate 06/03/19 19:00 06/03/19 19:01 06/03/19 19:30 Temperature Temperature Source Sepsis Recent Fever Within 48 Hours Sepsis Action Taken by Nursing End-Tidal CO2 Pulse Rate 58 L 63 61 Pulse Rate [Left Apical] Pulse Rate from SpO2 Sensor 57 L 63 62 Pulse Rhythm Pulse Rhythm [Left Apical] Pulse Strength Pulse Strength [Left Apical] Respiratory Rate Respiratory Effort / Characteristics Respiratory Depth Respiratory Pattern Blood Pressure 160/66 H 177/74 H Blood Pressure Mean 97 108 Blood Pressure Position Pulse Oximetry 91 92 91 Oxygen Delivery Method Oxygen Flow Rate 06/03/19 20:00 06/03/19 20:30 Temperature Temperature Source Sepsis Recent Fever Within 48 Hours Sepsis Action Taken by Nursing End-Tidal CO2 Pulse Rate 62 65 Pulse Rate [Left Apical] Pulse Rate from SpO2 Sensor 62 64 Pulse Rhythm Pulse Rhythm [Left Apical] Pulse Strength Pulse Strength [Left Apical] Respiratory Rate Respiratory Effort / Characteristics Respiratory Depth Respiratory Pattern Blood Pressure 160/69 H 165/80 H Blood Pressure Mean 99 108 Blood Pressure Position Pulse Oximetry 91 92 Oxygen Delivery Method Oxygen Flow Rate GENERAL: She is oriented to person, place, and time. She appears well-developed and well-nourished. She does not appear distressed. HENT: Exam performed. Head: Normocephalic and atraumatic. Right Ear: External ear normal. No mastoid tenderness. Left Ear: External ear normal. No mastoid tenderness. Mouth/Throat: The oropharynx is clear and moist. No trismus in the jaw. No dental abscesses or uvula swelling. No oropharyngeal exudate or tonsillar abscesses. EYES: Conjunctivae and EOM are normal. Pupils are equal, round, and reactive to light. Right eye exhibits no discharge. Left eye exhibits no discharge. No scleral icterus. NECK: Normal range of motion. Neck supple. No JVD present. No spinous process tenderness present. No carotid bruit present. No rigidity. No tracheal deviation and normal range of motion present. No Brudzinski's sign and no Kernig's sign noted. CV: Normal rate, regular rhythm, normal heart sounds and intact distal pulses. There is no peripheral edema. Palpable radial pulses bue. PULM/CHEST: Effort normal and breath sounds normal. No respiratory distress. No stridor. She has no wheezes. She has no rales. Chest Wall: She exhibits no tenderness. ABD: The abdomen is soft. Bowel sounds are normal. She has no distension. No mass is present. There is no tenderness. There is no rebound, no guarding, no Lilly's sign and no tenderness at McBurney's point. Rovsig negative MUSC/SKEL: Open fracture of the right ankle. Palpable DP pulses bilaterally. LYMPH: No cervical adenopathy. NEURO: She is alert and oriented to person, place, and time. She has normal strength. No cranial nerve deficit or sensory deficit. Coordination and gait normal. GCS eye subscore is 4. GCS verbal subscore is 5. GCS motor subscore is 6. cerbellar tests wnl. SKIN: Skin is warm and dry. She is not diaphoretic. PSYCH: She has a normal mood and affect. Her behavior is normal. Judgment and thought content normal. Procedures Orthopedic Joint Reduction Joint #1: Time Out Performed: Yes Side: right Joint Reduction Location: ankle Analgesia: procedural sedation Technique used: traction/counter-traction Post-reduction neuro exam: intact Post-reduction vascular: intact (Palpable DP and PT pulses) Post Reduction X-Ray Obtained: Yes Post Reduction X-Ray Results: reduced Splint Applied: Yes (Capillary refill less than 3 seconds and sensation intact after splint application.) Patient Tolerated Procedure: well Orthopedic Splinting/Casting Injury #1: Side: right Lower Extremity Injury Location: ankle Lower Extremity Immobilizer: posterior splint (ortho glass) and stirrup splint (ortho glass) Additional Comments: Status post splint application, the patient's capillary refill was 3 seconds and her sensation was intact. Course 1557: Past medical records reviewed. The patient was evaluated in room B01, and a complete history and physical examination were performed. 1625: I reduced the patient's open right ankle fracture while Dr. Connelly performed conscious sedation. See procedure note for more information. See Dr. Connelly note for sedation information. Patient has a history of penicillin allergy, given that she will be given clindamycin instead of Ancef for her open fracture. 1652: I spoke to Dr. Smith Christianson about the patient's case. He is going to evaluate and accept the patient for further treatment. The patient will be brought to the OR under Dr. Mtz's service. Consultations Consultation #1: I spoke to Dr. Smith Christianson about the patient's case. He is going to evaluate and accept the patient for further treatment. The patient will be brought to the OR. Time: 16:52 Administered Medications Sodium Chloride (Nss 1000ml) 1,000 mls @ 125 mls/hr IV .Q8H JOSE Stop: 07/03/19 16:14 Last Admin: 06/03/19 16:15 Dose: 125 mls/hr Documented by: [id number] Discontinued Medications Diphtheria/Pertussis/Tetanus Vacc (Adacel) 0.5 ml IM .ONCE ONE Stop: 06/03/19 16:58 Last Admin: 06/03/19 17:30 Dose: 0.5 ml Documented by: [id number] Fentanyl Citrate (Fentanyl Citrate) 50 mcg IV NOW STA Stop: 06/03/19 16:08 Last Admin: 06/03/19 16:25 Dose: 50 mcg Documented by: [id number] Hydromorphone HCl (Dilaudid) 1 mg IV NOW STA Stop: 06/03/19 17:38 Last Admin: 06/03/19 17:45 Dose: 1 mg Documented by: [id number] Clindamycin Phosphate 300 mg/ (Dextrose) 52 mls @ 100 mls/hr IV ONE ONE Stop: 06/03/19 16:36 Last Infusion: 06/03/19 17:05 Dose: 0 mls/hr Documented by: [id number] Admin: 06/03/19 16:35 Dose: 100 mls/hr Documented by: [id number] Cefazolin Sodium (Ancef 2000mg) 2,000 mg in 15 mls @ 3.75 mls/min IV PREOP ONE Stop: 06/03/19 17:25 Last Admin: 06/03/19 17:45 Dose: 3.75 mls/min Documented by: [id number] Potassium Chloride (K Floyd / Wtr) 10 meq in 100 mls @ 100 mls/hr IV Q1H JOSE Stop: 06/03/19 20:44 Last Admin: 06/03/19 20:01 Dose: 100 mls/hr Documented by: [id number] Infusion: 06/03/19 20:01 Dose: 100 mls/hr Documented by: [id number] Admin: 06/03/19 19:03 Dose: 100 mls/hr Documented by: [id number] Ondansetron HCl (Zofran) 4 mg IV NOW STA Stop: 06/03/19 17:38 Last Admin: 06/03/19 17:45 Dose: 4 mg Documented by: [id number] Potassium Chloride (Klor-Con M20) 40 meq PO NOW STA Stop: 06/03/19 18:39 Last Admin: 06/03/19 18:48 Dose: 40 meq Documented by: [id number] Propofol (Diprivan) Confirm Administered Dose 200 mg IV .STK-MED ONE Stop: 06/03/19 16:17 Last Admin: 06/03/19 17:28 Dose: Not Given Documented by: [id number] Medical Decision Making Medical Records Attestation: I reviewed the patient's medical records. Home Medications Current Medication List: was personally reviewed by me Laboratory Data Attestation: I reviewed the patient's lab results. Result diagrams: 06/03/19 17:30 06/03/19 19:27 Lab Results 06/03/19 06/03/19 06/03/19 Range/Units 17:30 17:30 17:30 WBC 9.41 (4.8-10.8) K/uL RBC 3.92 L (4.2-5.4) M/uL Hgb 12.1 (12.0-16.0) g/dL Hct 35.8 L (37-47) % MCV 91.3 (80-100) fL MCH 30.9 (25-34) pg MCHC 33.8 (32-36) g/dL RDW Std Deviation 43.3 (36.4-46.3) fL RDW Coeff of Michael 13.0 (11.5-14.5) % Plt Count 246 (130-400) K/uL MPV 9.5 (7.4-10.4) fL Immature Gran % (Auto) 0.1 % Neut % (Auto) 70.3 % Lymph % (Auto) 17.4 % [place] % (Auto) 8.9 % Eos % (Auto) 2.3 % Baso % (Auto) 1.0 % Immature Gran # (Auto) 0.01 (0.00-0.02) K/uL Neut # (Auto) 6.61 H (1.4-6.5) K/uL Lymph # (Auto) 1.64 (1.2-3.4) K/uL [place] # (Auto) 0.84 H (0.11-0.59) K/uL Eos # (Auto) 0.22 (0-0.5) K/uL Baso # (Auto) 0.09 (0-0.2) K/uL PT 10.9 (9.0-12.0) Seconds INR 1.1 (0.9-1.1) APTT 25.2 (21.0-31.0) Seconds PTT Ratio 0.9 Sodium 137 (136-145) mmol/L Potassium 3.0 L (3.5-5.1) mmol/L Chloride 100 (98-107) mmol/L Carbon Dioxide 33 H (21-32) mmol/L Anion Gap 5.0 (3-11) BUN 17 (7-18) mg/dl Creatinine 0.66 (0.6-1.2) mg/dl Est Cr Clr Drug Dosing 71.0 ml/min Est GFR ( Amer) 98.1 Est GFR (Non-Af Amer) 84.6 BUN/Creatinine Ratio 25.9 H (10-20) Glucose 105 H (70-99) mg/dl Calcium 8.6 (8.5-10.1) mg/dl 06/03/19 Range/Units 19:27 WBC (4.8-10.8) K/uL RBC (4.2-5.4) M/uL Hgb (12.0-16.0) g/dL Hct (37-47) % MCV (80-100) fL MCH (25-34) pg MCHC (32-36) g/dL RDW Std Deviation (36.4-46.3) fL RDW Coeff of Michael (11.5-14.5) % Plt Count (130-400) K/uL MPV (7.4-10.4) fL Immature Gran % (Auto) % Neut % (Auto) % Lymph % (Auto) % [place] % (Auto) % Eos % (Auto) % Baso % (Auto) % Immature Gran # (Auto) (0.00-0.02) K/uL Neut # (Auto) (1.4-6.5) K/uL Lymph # (Auto) (1.2-3.4) K/uL [place] # (Auto) (0.11-0.59) K/uL Eos # (Auto) (0-0.5) K/uL Baso # (Auto) (0-0.2) K/uL PT (9.0-12.0) Seconds INR (0.9-1.1) APTT (21.0-31.0) Seconds PTT Ratio Sodium (136-145) mmol/L Potassium 3.2 L (3.5-5.1) mmol/L Chloride (98-107) mmol/L Carbon Dioxide (21-32) mmol/L Anion Gap (3-11) BUN (7-18) mg/dl Creatinine (0.6-1.2) mg/dl Est Cr Clr Drug Dosing ml/min Est GFR ( Amer) Est GFR (Non-Af Amer) BUN/Creatinine Ratio (10-20) Glucose (70-99) mg/dl Calcium (8.5-10.1) mg/dl Imaging Data Radiologist's Impression: Radiology results as stated below per my review and the radiologist's interpretation: XR ankle RT 2V CLINICAL HISTORY: 78 years-old Female presenting with post reduction. TECHNIQUE: Frontal and crosstable lateral views of the right ankle were obtained. COMPARISON: None. FINDINGS: A fiberglass cast or splint is in place. Mildly comminuted fracture of the distal fibular metaphysis at the level of the syndesmosis. There is partial obscuration of underlying osseous detail. Less than one half shaft width lateral and anterior displacement of the distal fibular fracture fragment. Transversely oriented fracture of the medial malleolus with significant displacement of the tibia relative to the malleolus. There is complete disruption of the ankle mor tise. Presumably a nondisplaced posterior malleolus fracture or ligamentous disruption is present. Underlying osteopenia. No radiographic soft tissue abnormality. IMPRESSION: Disruption of the ankle mortise with grade 4 pronation external rotation injury. Presumably a trimalleolar fracture with a nondisplaced posterior malleolar fracture. Electronically signed by: Jared Browning M.D. 06/03/2019 4:48 PM ECG Data Attestation: I personally reviewed and interpreted this ECG as follows: Indication: other (Pre op) Rate (beats per minute): 58 Rhythm: normal sinus Findings: + other (WI 208, QRS and QTC are WNL ) and + 1st degree AV block; no ST depression and no ST elevation Blood Pressure Blood Pressure Findings: Elevated blood pressure Blood Pressure Disposition: Referred to patients primary care provider [facility] Narrative 1557: Past medical records reviewed. The patient was evaluated in room B01, and a complete history and physical examination were performed. 1625: I reduced the patient's open right ankle fracture while Dr. Connelly performed conscious sedation. See procedure note for more information. See Dr. Connelly note for sedation information. Patient has a history of penicillin allergy, given that she will be given clindamycin instead of Ancef for her open fracture. 165: I spoke to Dr. Mtz - Orthopedics about the patient's case. He is going to evaluate and accept the patient for further treatment. The patient will be brought to the OR under Dr. Mtz's service. Impression & Plan Open fracture of right ankle Discharge Plan Visit Data *Final* Discharge Date/Time: 06/03/19 20:52 Chief Complaint: Ankle Pain ED Provider: Kane Solis Discharge Problem: Open fracture of right ankle Patient Disposition: Still a Patient Discharge Instructions Interventions: ED Discharge Assessment Last Done: 06/03/19 20:52 Discharge Problem: Open fracture of right ankle Qualifiers: Encounter type: initial encounter Open fracture type: open type III Qualified Code(s): S82.891C - Other fracture of right lower leg, initial encounter for open fracture type IIIA, IIIB, or IIIC The scribe's documentation has been prepared under my direction and personally reviewed by me in its entirety. I confirm that the note above accurately reflects all work, treatment, procedures, and medical decision making performed by me.
[2019-06-03] MEDS ORDERED: BACITRACIN INJ 50,000 UNIT VIAL ONE (21:07)
[2019-06-03] MEDS ORDERED: BUPIVACAINE/EPINEPHRINE 0.5% MPF 1:200,000 30 ML VIAL ONE (21:07)
[2019-06-03] MEDS ORDERED: fentaNYL citrate 100 MCG/2 ML VIAL ONE ×2 (21:25→23:54)
[2019-06-03] MEDS ORDERED: SUCCINYLCHOLINE CHLORIDE 20 MG/ML 10 ML VIAL ONE (21:40)
[2019-06-03] MEDS ORDERED: DEXAMETHASONE SOD INJ 4 MG/ML VIAL ONE (21:40)
[2019-06-03] MEDS ORDERED: ONDANSETRON INJ 2 MG/ML 2 ML VIAL ONE (21:40)
[2019-06-03] MEDS ORDERED: LIDOCAINE HCL 2% 2 ML VIAL/AMP(20MG/ML) INFIL ONE (21:40)
[2019-06-03] MEDS ORDERED: CEFAZOLIN 250 MG/ML 1 GM VIAL ONE (21:40)
[2019-06-03] MEDS ORDERED: GENTAMICIN SULFATE 40 MG/ML 2 ML VIAL ONE (21:42)
--- NOTE | 2019-06-03 21:53 | History and Physical Report ---
DATE OF ADMISSION: 06/03/2019 CHIEF COMPLAINT: Right ankle injury. HISTORY OF PRESENT ILLNESS: A 78-year-old white female who sustained a fall earlier today. She kind of lost her balance and fell about 15 inches, she said, and broke her ankle. She was brought to the ER by EMS. She does have an open wound with an open ankle fracture as per the ER staff. She had a closed reduction in the ER and splinted and we were consulted. She has got some clindamycin 300 mg in the ER. Denies any other injuries. She does have a chronic history of low back pain and had previous spine surgery. There is no head injury, no loss of consciousness. Her last food was about 11:30 or 12:00 today. PAST MEDICAL HISTORY: 1. Chronic back pain. 2. Hypertension. 3. Elevated cholesterol. PAST SURGICAL HISTORY: Includes: 1. AAA repair at [facility] in 2010. 2. Back surgery in 1994. 3. Left wrist fracture done by Dr. Chacon 3-4 years ago. ALLERGIES: PENICILLIN, WHICH CAUSED HIVES; ALSO TO AZITHROMYCIN. SOCIAL HISTORY: A 78-year-old female. [place] . [place] not smoke or drink. FAMILY HISTORY: Noncontributory. REVIEW OF HISTORY: Negative for diabetes, neurologic problem, vascular problem, or bleeding disorders. Denies any chest pain or shortness of breath. No history of DVT or PE. PHYSICAL EXAMINATION: GENERAL: Shows a pleasant elderly female. She is lying in bed, looks reasonably comfortable. She looks tired from working a good bit of the day. VITAL SIGNS: Reveal temperature of 36.9. Vital signs stable. HEENT: Benign. NECK: Supple. No lymphadenopathy. LUNGS: Clear to auscultation. HEART: Has a regular rate and rhythm. ABDOMEN: Soft, nontender, nondistended. EXTREMITIES: Grossly neurovascularly intact except as follows: General musculoskeletal exam reveals full and painless range of motion of her neck and spine. She has got full painless range of motion of both shoulders, wrists, elbows and hands and left hip and leg and lower extremity. Examination of the right leg reveals her ankle to be in a splint with an Martínez bandage. There is no obvious bloody drainage and looks reasonably well aligned. She can flex and extend her toes appropriately. X-RAYS: X-rays of the ankle were reviewed. It shows a bimalleolar ankle fracture with some slight residual subluxation laterally. She has got significant comminution of the fibula. She has got diffuse osteopenia. ASSESSMENT: A 78-year-old female with an open ankle fracture. I have not seen the wound, it is already bandaged up and splinted and I do not think it is worth to open and pack up. PLAN: We are going to take her to the operating room and do an I and D and then plan on an open reduction and internal fixation. The risks and benefits of this procedure were explained to the patient including but not limited to DVT, PE, , infection, neurological injury, vascular injury, nonunion, malunion, need for further surgery in the future, etc. The patient understands and desires to proceed. Informed consent was obtained. We will keep her n.p.o. for now. We will begin DVT prophylaxis including TEDs, SCDs, and aspirin twice a day. We will give her some Ancef. She has got some clindamycin in the ER, but we will give her some Ancef as I think it is unlikely she has got a true anaphylaxis reaction to penicillin. Informed consent was obtained.
[2019-06-03] MEDS ORDERED: ATROPINE SULFATE 0.1 MG/ML 10ML SYR IV PRN (21:59)
[2019-06-03] MEDS ORDERED: LABETALOL HCL IV 5 MG/ML 20ML IV PRN (21:59)
[2019-06-03] MEDS ORDERED: ePHEDrine sulfate 50 MG/ML AMP IV PRN (21:59)
[2019-06-03] MEDS ORDERED: ONDANSETRON INJ 2 MG/ML 2 ML VIAL IV PRN (21:59)
[2019-06-03] MEDS ORDERED: PROMETHAZINE HCL 12.5 MG in SODIUM CHLORIDE 0.9% 50 ML IV PRN (21:59)
[2019-06-03] MEDS ORDERED: fentaNYL citrate 100 MCG/2 ML VIAL IV PRN (21:59)
[2019-06-03] MEDS ORDERED: HYDROmorphone INJ 1 MG/ML SYRINGE IV PRN (21:59)
[2019-06-03] MEDS ORDERED: CEFAZOLIN 1000MG 1,000 MG/7.5 ML SYR IV ONE (22:05)
--- NOTE | 2019-06-03 23:22 | Fluoroscopy Report ---
INTRAOPERATIVE RADIOGRAPHS CLINICAL HISTORY: Open reduction and internal fixation right ankle. Fluoroscopy time: 20 seconds. FINDINGS: 5 spot fluoroscopic views of the right ankle are correlated with radiographs dated 06/03/2019 . There has been buttress plate fixation of a distal fibular fracture. Additionally, 2 cortical lag s crews transfix a medial malleolar fracture. There has been anabaptist of near-anatomic alignment at the ankle joint. Overlying soft tissue edema is noted. A wound is suggested in the medial ankle. The orthopedic hardware appears intact. IMPRESSION: Intraoperative images from open reduction and internal fixation of the distal tibia and f ibula as above. Electronically signed by: Manjinder Myers M.D. 06/03/2019 11:20 PM
--- NOTE | 2019-06-03 23:22 | Fluoroscopy Report ---
INTRAOPERATIVE RADIOGRAPHS CLINICAL HISTORY: Open reduction and internal fixation right ankle. Fluoroscopy time: 20 seconds. FINDINGS: 5 spot fluoroscopic views of the right ankle are correlated with radiographs dated 06/03/2019 . There has been buttress plate fixation of a distal fibular fracture. Additionally, 2 cortical lag s crews transfix a medial malleolar fracture. There has been worship of near-anatomic alignment at the ankle joint. Overlying soft tissue edema is noted. A wound is suggested in the medial ankle. The orthopedic hardware appears intact. IMPRESSION: Intraoperative images from open reduction and internal fixation of the distal tibia and f ibula as above. Electronically signed by: Manjinder Myers M.D. 06/03/2019 11:20 PM
--- NOTE | 2019-06-03 23:51 | Post Operative Brief Note ---
PG Immediate Post Op with CF Date of Surgery June 03, 2019 Pre & Post Diagnosis Operation Date: 06/03/19 11:35 Pre-Op Diagnosis: Open ankle fracture related to fall Post-Op Diagnosis: Open ankle fracture related to fall - Grade 3 Posterior Tibial Tendon Rupture Procedure Operation Date: 06/03/19 11:35 Actual Procedures p Right Open Reduction Internal Fixation with Incision and Drainage of bimalleolar ankle fracture and open ankle fracture. Posterior tendon repair.(Right) - Gerard Mtz MD Surgeon Gerard Mtz MD Meteorological Technician None Estimated Blood Loss 20 Findings Consistent with Post-Op Diagnosis Fluids 1500 Specimens Specimen Description: No Specimens Anesthesia Type General Complications none Disposition Accompanied Patient To Recovery: Yes Disposition: Recovery Room
--- NOTE | 2019-06-04 00:21 | Anesthesiology Progress Note ---
Date of Service June 04, 2019 Anesthesia Post Procedure Vital Signs Vital Signs: Temp Pulse Pulse Resp BP Pulse Ox 06/03/19 20:30 65 165/80 H 92 06/03/19 20:00 62 160/69 H 91 06/03/19 19:30 61 177/74 H 91 06/03/19 19:01 63 160/66 H 92 06/03/19 19:00 58 L 91 06/03/19 18:51 64 157/88 H 90 06/03/19 18:41 59 L 147/77 H 95 06/03/19 18:31 63 187/78 H 91 06/03/19 18:01 63 175/75 H 93 06/03/19 17:51 62 185/105 H 92 06/03/19 17:41 62 195/94 H 96 06/03/19 17:31 60 194/87 H 95 06/03/19 17:21 59 L 185/87 H 97 06/03/19 17:19 57 L 185/67 H 94 06/03/19 17:16 60 205/74 H 91 06/03/19 17:13 62 190/80 H 91 06/03/19 17:11 56 L 187/79 H 98 06/03/19 17:10 36.6 C 58 L 18 96 06/03/19 17:08 56 L 205/87 H 97 06/03/19 17:06 69 204/80 H 97 06/03/19 17:03 67 184/74 H 96 06/03/19 16:59 55 L 175/88 H 96 06/03/19 16:56 58 L 174/84 H 99 06/03/19 16:53 57 L 178/78 H 97 06/03/19 16:50 57 L 170/77 H 100 06/03/19 16:45 57 L 165/71 H 100 06/03/19 16:43 58 L 157/70 H 100 06/03/19 16:41 59 L 163/67 H 100 06/03/19 16:36 63 138/67 100 06/03/19 16:35 61 130/63 100 06/03/19 16:32 64 130/66 98 06/03/19 16:30 62 99 06/03/19 16:14 64 20 184/77 H 06/03/19 15:39 36.9 C 75 18 96 Pain Intensity Right Ankle: Pain Intensity: 2 Transfer of Care Handoff Completed per policy Notes Mental Status: alert / awake / arousable Patient Amnestic to Procedure: Yes Nausea / Vomiting: adequately controlled Pain: adequately controlled Airway Patency, RR, SpO2: stable & adequate BP & HR: stable & adequate Hydration State: stable & adequate Anesthetic Complications: no major complications apparent and Pt Satisfied with anesthetic care
--- NOTE | 2019-06-04 00:50 | Emergency Department Note ---
Entered by Sally Munoz acting as a scribe for Pheasant,Jeny Akers DO Pre Sedation Assessment Vital Signs Temp Pulse Pulse Resp BP BP Pulse Ox 06/04/19 00:40 36.8 C 70 16 149/71 H 94 06/04/19 00:30 36.8 C 65 18 148/69 H 99 06/04/19 00:20 37.0 C 66 18 149/66 H 99 06/04/19 00:10 37.0 C 60 18 154/70 H 98 06/04/19 00:01 37.0 C 80 16 148/77 H 98 06/03/19 20:30 65 165/80 H 92 06/03/19 20:00 62 160/69 H 91 06/03/19 19:30 61 177/74 H 91 06/03/19 19:01 63 160/66 H 92 06/03/19 19:00 58 L 91 06/03/19 18:51 64 157/88 H 90 06/03/19 18:41 59 L 147/77 H 95 06/03/19 18:31 63 187/78 H 91 06/03/19 18:01 63 175/75 H 93 06/03/19 17:51 62 185/105 H 92 06/03/19 17:41 62 195/94 H 96 06/03/19 17:31 60 194/87 H 95 06/03/19 17:21 59 L 185/87 H 97 06/03/19 17:19 57 L 185/67 H 94 06/03/19 17:16 60 205/74 H 91 06/03/19 17:13 62 190/80 H 91 06/03/19 17:11 56 L 187/79 H 98 06/03/19 17:10 36.6 C 58 L 18 96 06/03/19 17:08 56 L 205/87 H 97 06/03/19 17:06 69 204/80 H 97 06/03/19 17:03 67 184/74 H 96 06/03/19 16:59 55 L 175/88 H 96 06/03/19 16:56 58 L 174/84 H 99 06/03/19 16:53 57 L 178/78 H 97 06/03/19 16:50 57 L 170/77 H 100 06/03/19 16:45 57 L 165/71 H 100 06/03/19 16:43 58 L 157/70 H 100 06/03/19 16:41 59 L 163/67 H 100 06/03/19 16:36 63 138/67 100 06/03/19 16:35 61 130/63 100 06/03/19 16:32 64 130/66 98 06/03/19 16:30 62 99 06/03/19 16:14 64 20 184/77 H 06/03/19 15:39 36.9 C 75 18 96 Pre-Sedation Airway Assessment Smoking Status: Former smoker Hx Sleep Apnea: No Short, Thick Neck: No Thyromental Distance: > or= 3.5 Finger Breadths Oral Cavity: + Dentures Mallampati Class: III ASA: ASA2 NPO Status Date of Last Intake of Fluids: 06/03/19 Time of Last Intake of Fluids: 12:00 Date of Last Intake of Solid Food: 06/03/19 Time of Last Intake of Solid Foods: 12:00 Notes The planned sedation has been discussed with the patient. Informed Consent was obtained. I have identified the patient, determined the appropriateness of sedation and have assessed the patient immediately prior to the procedure. All medicine(s) and interventions are by my order. No prior reactions to or difficulty with anesthesia. Discussed conscious sed ation with pt prior to procedure. IVF running, NC oxygen and EtCO2 in place. Despite last oral intake at noon, concern for slightly diminished pulses and possible neurovascular compromise in an obvious open fracture with dislocation Pt aware of risks and in agreement with plan. : Open fracture of right ankle Qualifiers: Encounter type: initial encounter Open fracture type: open type III Qualified Code(s): S82.891C - Other fracture of right lower leg, initial encounter for open fracture type IIIA, IIIB, or IIIC The scribe's documentation has been prepared under my direction and personally reviewed by me in its entirety. I confirm that the note above accurately reflects all work, treatment, procedures, and medical decision making performed by me.
--- NOTE | 2019-06-04 00:51 | Emergency Department Note ---
Entered by Sally Munoz acting as a scribe for Pheasant,Jeny S, DO Post Sedation Assessment Vital Signs Temp Pulse Pulse Resp BP BP Pulse Ox 06/04/19 00:40 36.8 C 70 16 149/71 H 94 06/04/19 00:30 36.8 C 65 18 148/69 H 99 06/04/19 00:20 37.0 C 66 18 149/66 H 99 06/04/19 00:10 37.0 C 60 18 154/70 H 98 06/04/19 00:01 37.0 C 80 16 148/77 H 98 06/03/19 20:30 65 165/80 H 92 06/03/19 20:00 62 160/69 H 91 06/03/19 19:30 61 177/74 H 91 06/03/19 19:01 63 160/66 H 92 06/03/19 19:00 58 L 91 06/03/19 18:51 64 157/88 H 90 06/03/19 18:41 59 L 147/77 H 95 06/03/19 18:31 63 187/78 H 91 06/03/19 18:01 63 175/75 H 93 06/03/19 17:51 62 185/105 H 92 06/03/19 17:41 62 195/94 H 96 06/03/19 17:31 60 194/87 H 95 06/03/19 17:21 59 L 185/87 H 97 06/03/19 17:19 57 L 185/67 H 94 06/03/19 17:16 60 205/74 H 91 06/03/19 17:13 62 190/80 H 91 06/03/19 17:11 56 L 187/79 H 98 06/03/19 17:10 36.6 C 58 L 18 96 06/03/19 17:08 56 L 205/87 H 97 06/03/19 17:06 69 204/80 H 97 06/03/19 17:03 67 184/74 H 96 06/03/19 16:59 55 L 175/88 H 96 06/03/19 16:56 58 L 174/84 H 99 06/03/19 16:53 57 L 178/78 H 97 06/03/19 16:50 57 L 170/77 H 100 06/03/19 16:45 57 L 165/71 H 100 06/03/19 16:43 58 L 157/70 H 100 06/03/19 16:41 59 L 163/67 H 100 06/03/19 16:36 63 138/67 100 06/03/19 16:35 61 130/63 100 06/03/19 16:32 64 130/66 98 06/03/19 16:30 62 99 06/03/19 16:14 64 20 184/77 H 06/03/19 15:39 36.9 C 75 18 96 Recovery Score Activity: Moves 4 extremities Respiration: Deep Breath/Cough Circulation: +/-20% PreAnes Value Consciousness: Fully Awake Oxygen Saturation: > 92% On Room Air Post Anesthesia Score: 10 Discharge Sedation Unexpected Event: None Post Sedation Plan On clinical assessment, the patient appears to have tolerated the sedation without complications. Patient is recovering as anticipated. Patient will continue to be monitored by nursing and may be discharged when sedation discharge criteria are met per below protocol. Upon Completions of procedure and additional 15 minutes continue every 5 minute vital signs and the P.A.R. score; then discharge to a Phase I or Fast Track to Phase II per the following guidelines: * Discharge Patient to appropriate Phase II area if PAR is 8 or greater or return to pre- procedure baseline. The post - procedure orders will be as directed. * If PAR score is less than 8 or not return to pre-procedure baseline then patient will follow Phase I monitoring till PAR is reached for Phase II. The Phase I may be done in procedure room or may call to secure a Phase I area. * If naloxone or flumazenil are used for reversal, hold in Phase I for continued monitoring from when last reversal dose was given for a minimum of 60 minutes or longer pending the nurse and/or physician discretion of patient condition before discharge to Phase II. Please call the Sedation Physician to re-evaluate and complete post-note for discharge to Phase II area. Do NOT discharge from procedure sedation or Phase 1 until post- sedation evaluation note is complete by procedure /sedation MD Sedation Discharge Instructions to be given to the patient at discharge to home. Sedation Data Sedation Times Sedation Start Date: 06/03/19 Sedation Start Time: 16:30 Sedation End Date: 06/03/19 Sedation End Time: 16:35 Total Sedation Time: 5 Procedure Times Procedure Start Time:: 16:30 Procedure End Time: 16:35 Specimens Specimens Obtained: No : Open fracture of right ankle Qualifiers: Encounter type: initial encounter Open fracture type: open type III Qualified Code(s): S82.891C - Other fracture of right lower leg, initial encounter for open fracture type IIIA, IIIB, or IIIC The scribe's documentation has been prepared under my direction and personally reviewed by me in its entirety. I confirm that the note above accurately reflects all work, treatment, procedures, and medical decision making performed by me.
--- NOTE | 2019-06-04 00:52 | Emergency Department Note ---
Entered by Sally Munoz acting as a scribe for ED Visit Note Procedural Sedation Indication Emergency Reduction of Open Fracture. Total time: 19 minutes. Written consent was obtained after the risks and benefits were explained to the patient, including, but not limited to aspiration, allergic reaction, breathing difficulties, cardiac complications, vomiting, pain, event recall, bleeding, and/or infection. Pre-sedation examination and paperwork completed. The patient was on 100% oxygen via NRB prior to the procedure. Continous end tidal CO2 monitoring, pulse oximetry, and cardiac monitoring were utilized. Suction, airway equipment, medications, respiratory equipment, and appropriate personnel were prepared prior to the initiation of the procedure. A time out was taken. Sedation was achieved utilizing 70 mg of Propofol. After I observed the patient had reached the appropriate level of sedation the main procedure was performed without complication. Sedation was discontinued and the monitoring continued. The patient recovered quickly from the effects of the medication without complication or adverse event. : Open fracture of right ankle Qualifiers: Encounter type: initial encounter Open fracture type: open type III Qualified Code(s): S82.891C - Other fracture of right lower leg, initial encounter for open fracture type IIIA, IIIB, or IIIC The scribe's documentation has been prepared under my direction and personally reviewed by me in its entirety. I confirm that the note above accurately reflects all work, treatment, procedures, and medical decision making performed by me.
[2019-06-04] MEDS ORDERED: FUROSEMIDE 20 MG TAB PO PRN (01:12)
[2019-06-04] MEDS ORDERED: ONDANSETRON INJ 2 MG/ML 2 ML VIAL IV PRN (01:12)
[2019-06-04] MEDS ORDERED: HYDROmorphone INJ 0.5 MG/0.5 ML SYR IV PRN (01:12)
[2019-06-04] MEDS ORDERED: ALUMINUM/MAGNESIUM SUSP 30 ML UDC PO PRN (01:12)
[2019-06-04] MEDS ORDERED: NALOXONE HCL 0.4 MG/1 ML VIAL/CARP IV PRN (01:12)
[2019-06-04] MEDS ORDERED: METOCLOPRAMIDE HCL INJ 5 MG/ML 2 ML VIAL IV PRN (01:12)
[2019-06-04] MEDS ORDERED: BISACODYL 10 MG SUPP PR PRN (01:12)
[2019-06-04] MEDS ORDERED: MAGNESIUM HYDROXIDE SUSP 30 ML UDC PO PRN (01:12)
[2019-06-04] MEDS ORDERED: CEFAZOLIN 1000MG 1,000 MG/7.5 ML SYR IV SCH (01:12)
[2019-06-04] MEDS ORDERED: COUGH DROP (SUGAR FREE) LOZ 24 LOZ/1 BOX BUCCAL PRN (01:17)
[2019-06-04] MEDS: SODIUM CHLORIDE 0.9% 1000ML 1,000 ML IV SCH ×3 (01:24→12:31)
[2019-06-04] MEDS: KETOROLAC TROMETHAMINE 15 MG/ML VIAL IV SCH ×4 (01:47→20:56)
[2019-06-04] MEDS: TRAMADOL HCL 50 MG TABLET PO PRN ×2 (04:09→21:37)
[2019-06-04] MEDS: CEFAZOLIN 2000MG 2,000 MG/15 ML SYR IV SCH ×3 (04:09→21:35)
[2019-06-04] MEDS ORDERED: GENTAMICIN CONSULT ACTIVE PRN (05:00)
--- NOTE | 2019-06-04 05:07 | Pharmacy Report ---
Pharmacy Abx Dose Short Note - Date of Service June 04, 2019 - Assessment & Plan Laboratory Tests 06/03/19 06/03/19 17:30 17:30 WBC 9.41 Creatinine 0.66 Est Cr Clr Drug Dosing 71.0 Plan: Pharmacy consulted to provide 48 hours of post-op Gent/Ancef s/p open ankle injury Ordered Ancef 2g IV q 8 hours x 48 hours post-op * Pt received 2 grams pre-op, and 1 gram immediately post-op. Ordered Gent 320mg (5mg/kg Adj BW per Tarun-Watson) IV q24h x 2 doses post-op. * q24hr dosing interval is appropriate for estimated GFR > 60mL/min * Will monitor daily Scr while on Gent-IV Pharmacy will continue to follow and will adjust dose/frequency as necessary. Thank you.
[2019-06-04] MEDS: ACETAMINOPHEN 500 MG TAB PO SCH ×3 (05:45→21:34)
[2019-06-04] MEDS: GENTAMICIN SULFATE 320 MG in DEXTROSE 5% 100 ML IV SCH (05:45)
[2019-06-04 08:43] LABS: Hematocrit (blood only) 33.7 % (37-47); Hemoglobin 11.1 g/dL (12.0-16.0); Mean Corpuscular Hgb Conc 32.9 g/dL (32-36); Mean Corpuscular Volume 91.8 fL (80-100); Mean Platelet Volume 9.8 fL (7.4-10.4); Platelet Count 229 K/uL (130-400); RDW Coefficient of Variation 13.1 % (11.5-14.5); RDW Standard Deviation 44.1 fL (36.4-46.3); Red Blood Count 3.67 M/uL (4.2-5.4); White Blood Count 12.81 K/uL (4.8-10.8)
[2019-06-04] MEDS ORDERED: MULTIVITAMIN TAB PO SCH (09:00)
[2019-06-04] MEDS ORDERED: NON-FORMULARY MEDICATION (Atenolol-Chlorthalidone 1 TAB) PO SCH (09:00)
--- NOTE | 2019-06-04 09:00 | Progress Note ---
DATE: 06/04/2019 SUBJECTIVE: A 78-year-old female postop day 1 from I and D of an open ankle fracture and ORIF and also repair of the posterior tibial tendon. She is doing okay. Some discomfort but manageable. No new complaints. No chest pain or shortness of breath. Not feeling dizzy or lightheaded. OBJECTIVE: VITAL SIGNS: Temperature 36.6. Vital signs stable. PHYSICAL EXAMINATION: GENERAL: Shows a pleasant elderly female. She is sitting up in bed, looks pretty comfortable. She is awake, alert and oriented. EXTREMITIES: Examination of the right leg reveals the splint to be in place. Ankle is well aligned. Toes are pink. She can flex and extend her toes appropriately. She is neurologically intact. LABORATORIES: Labs are pending. ASSESSMENT: A 78-year-old female status post irrigation and drainage, open reduction and internal fixation of an open ankle fracture with gross contamination and posterior tibial tendon repair. She seems to be doing okay. Pain is controlled. She is neurologically intact. PLAN: We are going to give her 24-48 hours of postoperative IV antibiotics including Ancef and gentamicin. Once she is completed with that, she should be medically okay for discharge. Talked about discharge plans and she is hoping to maybe go to [facility]. Apparently, her works and she would be at home lot of the day. She will certainly need some assistance. She is going to be nonweightbearing for 2 weeks. I will get director of social services working on that today. She will continue DVT prophylaxis including thigh-high TEDs, SCDs, and aspirin twice a day. Strict elevation. Nonweightbearing for 2 weeks.
[2019-06-04 09:08] LABS: BUN Creatinine Ratio 19.5 (10-20); Calcium 8.2 mg/dl (8.5-10.1); Creatinine Clr Calc Pharmacy 76.8 ml/min; Est GFR (African American) 100.1; Est GFR (Non-African American) 86.4; Potassium 3.6 mmol/L (3.5-5.1)
[2019-06-04] MEDS: SIMVASTATIN 10 MG TAB PO SCH (09:23)
[2019-06-04] MEDS: CHLORTHALIDONE 25 MG TAB PO SCH (09:23)
[2019-06-04] MEDS: POTASSIUM CHLORIDE 10 MEQ TABCR PO SCH ×2 (09:24→20:42)
[2019-06-04] MEDS: LOSARTAN/HCTZ 50/12.5MG TAB PO SCH (09:24)
[2019-06-04] MEDS: CALCIUM CARBONATE 1250MG TAB PO SCH (09:24)
[2019-06-04] MEDS: SERTRALINE HCL 100 MG TABLET PO SCH (09:24)
[2019-06-04] MEDS: DOCUSATE SODIUM 100 MG CAP PO SCH ×2 (09:25→20:42)
[2019-06-04] MEDS: ASPIRIN 325 MG ECTAB PO SCH ×2 (09:25→20:42)
[2019-06-04] MEDS: GABAPENTIN 100 MG CAP PO SCH ×2 (09:25→20:42)
[2019-06-04] MEDS: MULTIVITAMIN TAB PO SCH (09:25)
[2019-06-04] MEDS: ATENOLOL 50 MG TABLET PO SCH (09:26)
--- NOTE | 2019-06-04 14:26 | Operative Report ---
DATE OF OPERATION: 06/03/2019 SURGEON: Gerard Mtz MD AGRICULTURE TEACHER: None. PREOPERATIVE DIAGNOSIS: Right open bimalleolar ankle fracture. POSTOPERATIVE DIAGNOSES: 1. Right grade 3A open bimalleolar ankle fracture with gross contamination in an 8 cm wound 2. Right posterior tibial tendon rupture. PROCEDURE PERFORMED: 1. Irrigation and debridement of right grade 3A open ankle fracture. 2. ORIF of right bimalleolar ankle fracture. 3. Right posterior tibial tendon repair. COMPLICATIONS: None. ESTIMATED BLOOD LOSS: 20 mL. TOURNIQUET TIME: There are two separate tourniquet times, first tourniquet time for the I and D was 10 minutes at 300 mmHg. Second tourniquet time for the ORIF was 43 minutes at 300 mmHg. ANESTHESIA: General. SPECIMENS: None. OPERATIVE INDICATIONS: The patient is a 78-year-old female who injured her ankle earlier in the day when she was out in the [place] and sustained a fall. She had acute onset of pain, deformity and open wound medially with a marked dislocation of her ankle. She was treated by the EMS and brought to the Emergency Room. She underwent an emergent reduction by the ER staff and splinting. I did not see the wound beforehand. She was treated with immediate clindamycin IV antibiotics followed by 2 grams of Ancef as well in the ER. Tetanus is up to date. She was indicated for surgical treatment. X-rays revealed a bimalleolar ankle fracture dislocation with severe fibular comminution. OPERATIVE FINDINGS: Operative findings revealed a transverse 8-cm medial wound. There was gross contamination of the tissues. There was dirt within the wound. All the skin edges appeared viable. She had marked comminution of the fibula as well. She did have some comminution medially, but less so. There was a tear of the posterior tibial tendon which could not be appreciated until the time of surgery. OPERATIVE IMPLANTS: Medial side implants consisted of: 1. Synthes 4.0 partially threaded, long threaded cannulated screws with washers x2. Lateral side implants consisted of: 1. Synthes 8-hole 1/3 semitubular locking plate. 2. A 3.5 fully threaded cortical screws x3. 3. A 4.0 fully threaded cancellous screws x2. OPERATIVE PROCEDURE: The patient taken to the operating room, identified and placed on the operating table in supine position. All contact areas were appropriately padded. IV antibiotics were provided in the ER. She has got clindamycin as well as some Ancef. We gave an additional gram of Ancef at the time of surgery. A general anesthetic was implemented. A right thigh tourniquet was then placed and the right lower extremity splint was removed. Once I saw that the anchor was fairly grossly contaminated, we did give her 80 mg of gentamicin. The ankle was then scrubbed with Hibiclens and then prepped with ChloraPrep and draped in the usual sterile fashion. The right leg was elevated but not exsanguinated. The tourniquet was placed at 300 mmHg. I then examined the wound. I could not really excise the edges as I was afraid that it would not be able to close the incision and allow exposed bone. Therefore, I left the skin edges intact. I did have to extend the incision anteriorly somewhat distal to expose the fragment for fixation. Once I identified the posterior tibial tendon rupture, I also had to extend the posterior aspect of this incision proximally to identify the more proximal portion of the tendon. This was done with an incision in each direction sharply down to the fascia. I did open the ankle joint. I picked out all dirt and foreign debris very carefully. I then irrigated the wound extensively multiple times with 3 liters of pulsatile lavage solution. Any nonviable tissue and any grossly contaminated tissue, I excised with the use of scissors. I identified the posterior tibial tendon rupture. I curetted the bone edges of all contaminated tissue. Once this was complete, the wound was covered. The drapes were taken down and a new setup was opened. The right lower extremity was then reprepped with ChloraPrep and draped in usual sterile fashion. A new setup was performed. All gloves and gowns were changed and the surgical staff rescrubbed. The right leg was then draped in the usual sterile fashion. Attention was then drawn toward fixation. The wound was once again irrigated extensively. I first reduced the fracture quite easily. I then repaired the posterior tibial tendon with #2 Ti-Cron suture using a modified Pacheco stitch. I then fixed the medial malleolus with 2 K wires for the 4.0 cannulated screw sets. X-ray was brought in to verify position and then I placed 2 partially threaded, long threaded cannulated screws with washers over the guidewires. This provided good ankle stability and had a good purchase and the piece was quite large. Attention was then drawn to the fibula. A direct lateral approach to the fibula was then performed through a longitudinal incision. Sharp dissection was carried through subcutaneous tissue directly down to the fracture. There was marked comminution and there was no way of providing interfragmentary fixation. Therefore, I did not expose the fracture site excessively and just tried to provide a lateral buttress. I did use a K-wire some pieces together provisionally. I then contoured an 8-hole one-third semitubular plate to the lateral aspect of the fibula. I undercontoured this slightly. I fixed it proximally with three 3.5 fully threaded cortical screws and distally with two 4.0 fully threaded cancellous screws. X-ray was brought in. The fracture was anatomically aligned. I stressed this and there was no widening of the syndesmosis. There was no posterior subluxation. We elected to proceed with closing. Both wounds were then irrigated extensively. I injected the lateral wound with 30 mL of 0.5% Marcaine with epinephrine. I did not inject medially. The tourniquet was then let down for a second tourniquet time of 43 minutes. Hemostasis was assured with use of electrocautery. The periosteum over the lateral plate was closed with 2-0 Vicryl suture in a buried interrupted fashion. The subcutaneous tissues laterally closed with 2-0 Vicryl suture in a buried interrupted fashion. Skin was then closed with combination of 3-0 and 2-0 nylon suture in a simple fashion. The medial wound was then irrigated. I then closed just the skin with a 2-0 nylon suture in a simple fashion. We got good skin approximation and it did not look to be under significant distress. Certainly some of the skin edges were likely clinically tenuous due to the nature of the wound. Leg was then cleaned and dried and a sterile dressing composed of Xeroform, 4 x 4's, sterile cast padding and a well-padded posterior and stirrup splint were applied. The patient then brought out of general anesthesia and transferred to the recovery room in stable condition. The patient tolerated the procedure well with no complication. All needle and sponge counts were correct at the end of the operation. I attest to the content of the Intraoperative Record and any orders documented therein. Any exception s are noted below.
[2019-06-04] MEDS: SENNA 8.6 MG TAB PO SCH (20:42)
[2019-06-05] MEDS: CEFAZOLIN 2000MG 2,000 MG/15 ML SYR IV SCH ×3 (03:02→20:14)
[2019-06-05] MEDS: KETOROLAC TROMETHAMINE 15 MG/ML VIAL IV SCH ×4 (03:02→19:48)
[2019-06-05] MEDS: GENTAMICIN SULFATE 320 MG in DEXTROSE 5% 100 ML IV SCH (05:32)
[2019-06-05] MEDS: ACETAMINOPHEN 500 MG TAB PO SCH ×3 (05:32→21:33)
[2019-06-05 06:46] LABS: Creatinine Clr Calc Pharmacy 74.4 ml/min; Est GFR (African American) 99.1; Est GFR (Non-African American) 85.5
--- NOTE | 2019-06-05 08:25 | Progress Note ---
DATE: 06/05/2019 SUBJECTIVE: A 78-year-old white female postop day 2 from I and D, ORIF of an open ankle fracture with posterior tibial tendon repair. She is doing okay. Pain is controlled. Denies any chest pain or shortness of breath. She does have chronic back pain. OBJECTIVE: VITAL SIGNS: Temperature 36.8. Vital signs stable. GENERAL: Shows pleasant elderly female. She is lying in bed, looks pretty comfortable. EXTREMITIES: Examination of the right leg reveals the splint to be in place. There is no significant drainage. Toes are pink. She can flex and extend her toes appropriately. She is neurologically intact. ASSESSMENT: A 78-year-old white female postoperative day 2 from irrigation and debridement and open reduction and internal fixation of an open ankle fracture and posterior tibial tendon repair, doing pretty well. She does have chronic back pain. Her ankle pain is well controlled. PLAN: 1. DVT prophylaxis including thigh-high TEDs, SCDs, and aspirin twice a day. 2. PT/OT. She is nonweightbearing in the right leg for the next 2 weeks. 3. Ulcer precaution. Emphasized the importance of keeping pressure off her heel. 4. Antibiotics. We will continue a total of 48 hours of postoperative antibiotics. 5. Disposition: She is hoping to go to rehab. We are waiting for insurance authorization.
[2019-06-05] MEDS: ASPIRIN 325 MG ECTAB PO SCH ×2 (09:23→20:22)
[2019-06-05] MEDS: GABAPENTIN 100 MG CAP PO SCH ×2 (09:24→20:23)
[2019-06-05] MEDS: ATENOLOL 50 MG TABLET PO SCH (09:24)
[2019-06-05] MEDS: POTASSIUM CHLORIDE 10 MEQ TABCR PO SCH ×2 (09:24→20:23)
[2019-06-05] MEDS: SERTRALINE HCL 100 MG TABLET PO SCH (09:25)
[2019-06-05] MEDS: CALCIUM CARBONATE 1250MG TAB PO SCH (09:25)
[2019-06-05] MEDS: LOSARTAN/HCTZ 50/12.5MG TAB PO SCH (09:25)
[2019-06-05] MEDS: DOCUSATE SODIUM 100 MG CAP PO SCH ×2 (09:25→20:22)
[2019-06-05] MEDS: CHLORTHALIDONE 25 MG TAB PO SCH (09:26)
[2019-06-05] MEDS: MULTIVITAMIN TAB PO SCH (09:26)
[2019-06-05] MEDS: SIMVASTATIN 10 MG TAB PO SCH (09:26)
[2019-06-05] MEDS: TRAMADOL HCL 50 MG TABLET PO PRN ×2 (11:53→19:36)
[2019-06-05] MEDS: SENNA 8.6 MG TAB PO SCH (20:23)
[2019-06-06] MEDS: TRAMADOL HCL 50 MG TABLET PO PRN ×5 (03:47→21:29)
[2019-06-06] MEDS: ACETAMINOPHEN 500 MG TAB PO SCH ×3 (05:28→21:28)
[2019-06-06 07:45] LABS: Est GFR (African American) 103.5; Est GFR (Non-African American) 89.3
--- NOTE | 2019-06-06 08:08 | Progress Note ---
DATE: 06/06/2019 SUBJECTIVE: A 78-year-old white female postop day 3 from I and D and ORIF of an open ankle fracture and posterior tibial tendon repair. She is doing pretty well. Having some discomfort. No new complaints. OBJECTIVE: VITAL SIGNS: Temperature 36.8. Vital signs stable. GENERAL: Physical examination shows a pleasant elderly female. She is lying in bed, looks pretty comfortable. EXTREMITIES: Examination of the right leg reveals the splint to be clean, dry and intact. There is no drainage. Toes are pink. She can flex and extend her toes appropriately. ASSESSMENT: A 78-year-old white female postop day 3 from I and D of an open ankle fracture, ORIF, and posterior tibial tendon repair. She is doing okay. PLAN: 1. DVT prophylaxis including thigh-high TEDs, SCDs, and aspirin twice a day. 2. PT/OT. She is nonweightbearing in the right leg for the next 2 weeks. 3. Antibiotics. She is getting 48-72 hours of IV antibiotics. 4. Disposition: She is looking for discharge to either rehab or [facility]. Hopefully, we can get her there today. She is medically stable.
--- NOTE | 2019-06-06 08:33 | Anesthesiology Progress Note ---
Date of Service June 06, 2019 Anesthesia Post Procedure Vital Signs Vital Signs: Temp Pulse Pulse Resp BP Pulse Ox 06/06/19 07:32 36.8 C 68 14 134/72 93 06/05/19 23:00 36.6 C 67 16 109/62 90 06/05/19 15:38 36.6 C 56 L 17 115/61 94 Pain Intensity Right Ankle: Pain Intensity: 6 Notes Mental Status: alert / awake / arousable Patient Amnestic to Procedure: Yes Nausea / Vomiting: adequately controlled Pain: adequately controlled Airway Patency, RR, SpO2: stable & adequate BP & HR: stable & adequate Hydration State: stable & adequate Anesthetic Complications: no major complications apparent and Pt Satisfied with anesthetic care
[2019-06-06] MEDS: DOCUSATE SODIUM 100 MG CAP PO SCH ×2 (08:36→21:28)
[2019-06-06] MEDS: ATENOLOL 50 MG TABLET PO SCH (08:36)
[2019-06-06] MEDS: GABAPENTIN 100 MG CAP PO SCH ×2 (08:37→21:30)
[2019-06-06] MEDS: SERTRALINE HCL 100 MG TABLET PO SCH (08:37)
[2019-06-06] MEDS: LOSARTAN/HCTZ 50/12.5MG TAB PO SCH (08:37)
[2019-06-06] MEDS: SIMVASTATIN 10 MG TAB PO SCH (08:37)
[2019-06-06] MEDS: POTASSIUM CHLORIDE 10 MEQ TABCR PO SCH ×2 (08:38→21:30)
[2019-06-06] MEDS: CALCIUM CARBONATE 1250MG TAB PO SCH (08:38)
[2019-06-06] MEDS: MULTIVITAMIN TAB PO SCH (08:38)
[2019-06-06] MEDS: CHLORTHALIDONE 25 MG TAB PO SCH (08:38)
[2019-06-06] MEDS: ASPIRIN 325 MG ECTAB PO SCH ×2 (08:39→21:28)
[2019-06-06] MEDS: CEFAZOLIN 1000MG 1,000 MG/7.5 ML SYR IV SCH ×4 (08:44→23:25)
[2019-06-06] MEDS: SENNA 8.6 MG TAB PO SCH (21:30)
[2019-06-07] MEDS: ACETAMINOPHEN 500 MG TAB PO SCH ×2 (05:55→13:32)
[2019-06-07] MEDS: TRAMADOL HCL 50 MG TABLET PO PRN ×2 (05:55→12:37)
[2019-06-07] MEDS: CEFAZOLIN 1000MG 1,000 MG/7.5 ML SYR IV SCH (07:58)
[2019-06-07] MEDS: POTASSIUM CHLORIDE 10 MEQ TABCR PO SCH (08:33)
[2019-06-07] MEDS: GABAPENTIN 100 MG CAP PO SCH (08:34)
[2019-06-07] MEDS: LOSARTAN/HCTZ 50/12.5MG TAB PO SCH (08:34)
[2019-06-07] MEDS: CHLORTHALIDONE 25 MG TAB PO SCH (08:34)
[2019-06-07] MEDS: ASPIRIN 325 MG ECTAB PO SCH (08:35)
[2019-06-07] MEDS: DOCUSATE SODIUM 100 MG CAP PO SCH (08:35)
[2019-06-07] MEDS: SERTRALINE HCL 100 MG TABLET PO SCH (08:35)
[2019-06-07] MEDS: SIMVASTATIN 10 MG TAB PO SCH (08:35)
[2019-06-07] MEDS: MULTIVITAMIN TAB PO SCH (08:35)
[2019-06-07] MEDS: ATENOLOL 50 MG TABLET PO SCH (08:36)
[2019-06-07] MEDS: CALCIUM CARBONATE 1250MG TAB PO SCH (08:36)
--- NOTE | 2019-06-07 12:22 | Progress Note ---
DATE: 06/07/2019 SUBJECTIVE: A 78-year-old white female postoperative day 4 from I and D and ORIF of a bimalleolar ankle fracture and posterior tibial tendon repair. She is doing well. She has bouts where it hurts more than others, but seems like it is manageable. No new complaints. OBJECTIVE: VITAL SIGNS: Temperature 36.5. Vital signs stable. GENERAL: Physical examination reveals a pleasant elderly female. She was talking on the phone when I went in to visit her today. EXTREMITIES: Her splint and dressing is clean, dry, and intact. No drainage. She can flex and extend her toes appropriately. Ankle is well aligned. She is neurologically intact. ASSESSMENT: A 78-year-old white female postop day 4 from ORIF open ankle fracture, I and D, posterior tibial tendon repair, doing pretty well. The major concern is just soft tissue healing right now. PLAN: She has finished her IV antibiotics. We will continue DVT prophylaxis including thigh-high TEDs, SCDs, and aspirin twice a day. She is nonweightbearing on the right leg. She can be transferred to [facility] later today.
--- NOTE | 2019-06-13 23:29 | Discharge Summary ---
ADMITTING PHYSICIAN AND SURGEON: Dr. Gerard Mtz. ADMITTING DIAGNOSIS: Open right bimalleolar ankle fracture. PROCEDURE PERFORMED: 1. Irrigation and debridement of open ankle fracture. 2. ORIF of her bimalleolar ankle fracture. 3. Right posterior tibial tendon repair. SECONDARY DIAGNOSES: Chronic back pain, hypertension, elevated cholesterol. CONSULTS: None obtained. HISTORY AND PHYSICAL EXAMINATION: Well documented in the patient's chart. HOSPITAL COURSE: The patient was admitted on 06/03/2019 with an open ankle fracture. She was given Ancef in the Emergency Department and later that evening underwent ORIF of the ankle fracture and posterior tibial tendon repair. She tolerated the procedure well. There were no complications. She was transferred to the PACU postoperatively and later to the orthopedic floor for further care. Postoperatively, she was given Ancef as well as gentamicin for antibiotic prophylaxis, DELFINO stockings, SCDs and aspirin for DVT prophylaxis. Vital signs were monitored during her hospital stay. She did not require any blood transfusions. There were no complications. By postoperative day #4, she was tolerating a regular diet, pain was controlled with oral pain medicine. She was participating in physical therapy. Postop day #4, she was transferred to group home facility. She was given printed discharge instructions, specifically to be nonweightbearing to the right lower extremity for the next 2 weeks. Keep her splint clean, dry and intact. Elevate her right lower extremity as much as possible, keep pressure off her heel. She was given new prescriptions for extra strength Tylenol, aspirin and tramadol. Continue her home medications with the exception of her home dose of aspirin which was changed and hydrocodone which was stopped. Follow up approximately in 2 weeks postoperatively or sooner if there are any problems or concerns.
== END 2019-06-07 14:49 | DRG 494 ==
LOC: ED 15:52 → OR 20:45 → 3W 23:58

== ENCOUNTER 2020-12-04 10:27 | Observation (INO) ==
--- NOTE | 2020-11-28 13:15 | History and Physical Report ---
DATE OF ADMISSION: 12/04/2020 CHIEF COMPLAINT: Persistent right ankle pain and discomfort. HISTORY OF PRESENT ILLNESS: The patient is an 80-year-old female who now presents for surgical treatment of her right ankle for posttraumatic ankle DJD. This all dates back to an injury she had about 18 months ago. She had a severe grade 3A open ankle fracture dislocation with gross contamination. She was taken to the operating room and underwent an emergent I and D and then ORIF. She struggled ever since the surgery. She had a little wound drainage for a while and she was treated with some oral Keflex, but all the drainage stopped. She has been off antibiotics for over a year. She developed progressive pain, discomfort and arthritic change in her ankle. We tried bracing, which has not helped much. She is having difficulty getting around even walking a block. She uses a cane to walk. She was putting any further surgery off as her is quite ill, but she has found somebody to help take care of him and she would like to have her ankle fixed as best as possible to help her with her pain and get her back walking. We did have her scheduled a couple months ago, but she was canceled due to the COVID epidemic and now would like to reschedule. There has been no real interval change in her medical history. PAST MEDICAL HISTORY: 1. Hypertension. 2. Elevated cholesterol. 3. Lumbar spondylosis. 4. History of aortic aneurysm repair at [facility] in 2009. PAST SURGICAL HISTORY: Includes, 1. Aneurysm repair in 2009 at [facility]. 2. Right ankle ORIF done on 06/03/2019 with a posterior tibial tendon repair at the same time. ALLERGIES: BACTRIM, SULFA, PENICILLIN, ERYTHROMYCIN. CURRENT MEDICINES: Include, 1. Aspirin 325 once a day. 2. Atenolol/chlorthalidone 50/25 once a day. 3. Calcium 500 mg. 4. Furosemide 20 mg a day. 5. Gabapentin 100 mg. 6. Ibuprofen several times a day. 7. Multivitamin. 8. Potassium chloride. 9. Simvastatin. SOCIAL HISTORY: An 80-year-old female. She is . She cares for her ill . Does not smoke. FAMILY HISTORY: Noncontributory. REVIEW OF SYSTEMS: Negative for diabetes. Denies any neurologic problem, vascular problems or bleeding problems. She does have this history of aneurysm repair at [facility]. She has seen Dr. Eli recently and cleared for surgery. No history of DVT or PE. PHYSICAL EXAMINATION: GENERAL: Shows a pleasant elderly female. Looks to be in pretty good health. HEENT: Benign. NECK: Supple, no lymphadenopathy. LUNGS: Clear to auscultation. HEART: Has a regular rate and rhythm. ABDOMEN: Soft, nontender, nondistended. EXTREMITIES: Grossly neurovascularly intact except as follows: Examination of the right ankle reveals the patient walks with use of a cane. She wears an ankle brace. She has got [id number] diffuse edema in the right lower extremity. Incisions are healed nicely without signs of redness or infection. She has fairly minimal ankle motion. She can dorsiflex to about neutral. Minimal plantarflexion. She is neurologically intact otherwise. X-RAYS: X-rays of the ankle are reviewed. She has severe posttraumatic ankle degenerative joint disease. There are cystic changes of the joint. Her foot has gone at hindfoot valgus alignment. ASSESSMENT: An 80-year-old female now 18 months out from incision and drainage of an open ankle fracture and open reduction and internal fixation along with a posterior tibial tendon repair. She has developed progressive ankle arthritis. She has failed all conservative measures and pretty miserable with this and would like to have her ankle fixed. PLAN: We talked about treatment options including ankle arthrodesis versus arthroplasty. She is interested in just having this fused and I think that is probably the most predictable operation for her. I do not think she is a good candidate for ankle replacement considering her deformity, dysfunction of the posterior tibial tendon, diffuse osteopenia and concerns of infection. We will take her to the operating room and do right ankle arthrodesis. We will likely have to take some of the hardware out. The risks and benefits of this procedure were explained to the patient including but not limited to DVT, PE, , infection, neurological injury, vascular injury, bleeding problem, pain, limited range of motion, stiffness, failure to relieve her symptoms, incomplete relief of symptoms, need for further surgery in the future, fracture, leg length inequality, nerve palsy, and need for further surgery. The patient understands and desires to proceed. Informed consent was obtained. We did talk to her about discharge. She can stay in the hospital overnight for pain control. She will be nonweightbearing for 6 weeks and then weightbearing in a cast for 6 weeks.
--- NOTE | 2020-12-03 08:43 | Anesthesiology Consultation ---
Date of Service December 03, 2020 Assessment & Plan (1) Encounter for pre-operative examination: COVID Status: As of 11/05/20 nurse assessment, patient denies travel to endemic area, known exposure/sick contacts, or symptoms of COVID19. Preoperative COVID19 testing completed on 11/30/20, results NEGATIVE. Chart Review Chart Review: Acceptable Risk for Surgery and Patient NOT seen in Pre Admission Testing History Surgery Operation Date: 12/04/20 08:50 Proposed Procedures p Right Ankle Arthrodesis and Hardware Removal - Gerard Mtz MD Height/Weight Height: 5 ft 5 in Weight: 68.039 kg Allergies Allergy/AdvReac Type Severity Reaction Status Date / Time azithromycin Allergy Severe throat Verified 11/05/20 10:37 swelling penicillin V Allergy Mild arm Verified 11/05/20 10:37 swelling with PCN (tolerates oral PCN/Amoxicillin) Bactrim Allergy Unknown Hives Unverified 06/22/17 11:40 sulfamethoxazole Allergy Unknown Hives Verified 11/05/20 10:37 trimethoprim Allergy Unknown Hives Verified 11/05/20 10:37 Medications Home Medications Medication Instructions Recorded Confirmed Last Taken potassium chloride 10 meq PO BID 07/20/18 11/05/20 Unknown simvastatin 1 tab PO HS 07/20/18 11/05/20 06/03/19 calcium carbonate [Calcium 500] 500 mg PO QAM 06/03/19 11/05/20 Unknown furosemide 20 mg PO DAILY PRN 06/03/19 11/05/20 Unknown gabapentin 100 mg PO BID 06/03/19 11/05/20 Unknown multivitamin 1 tab PO QAM 06/03/19 11/05/20 Unknown ibuprofen 200 mg capsule 200 mg PO BID PRN cap 09/13/19 11/05/20 Unknown acetaminophen [Tylenol Extra 500 mg PO BID PRN 09/06/20 11/05/20 Unknown Strength] aspirin 325 mg PO QAM 09/06/20 11/05/20 Unknown atenolol-chlorthalidone 1 tab PO QAM 09/06/20 11/05/20 Unknown losartan 100 mg PO QAM 09/06/20 11/05/20 Unknown Past Medical History Medical History Anxiety Aortic aneurysm s/p repair (2010), [facility] Breast cancer right Chronic back pain Mild coronary artery disease normal coronary arteries with mild luminal irregularities per 2012 cardiac cath Osteoarthritis Seasonal allergies Past Family History Family History Other Family history non-contributory No family history of adverse response to anesthesia Past Surgical History Surgical History H/O decompression of ulnar nerve right H/O lumbar discectomy with hardware/cage History of appendectomy History of bilateral tubal ligation History of cardiac cath 2012- no stents History of carpal tunnel release right History of cataract surgery bilateral History of colonoscopy History of open reduction and internal fixation (ORIF) procedure wrist 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 History of tonsillectomy Hx of lumpectomy right breast with radiation S/P hardware removal Left wrist Status post open reduction and internal fixation (ORIF) of fracture Left wrist Status post open reduction with internal fixation (ORIF) of fracture of ankle Right ankle ORIF: 06/03/20: Grade view 1, MAC#3, ETT 7 at [facility] Status post thoracic aortic aneurysm repair with a stent (2010) [facility] Social History Smoking Status: Former smoker tobacco type: cigarettes Do You Dip or Chew Tobacco: No Smoking End Date: 12 yrs ago Hx Alcohol Use: No Hx Substance Use: No substance use type: does not use Testing Laboratory Results 11/30/20 WBC: 7.08 H/H: 13.5/40.2 PLATELETS: 254 SODIUM: 138 POTASSIUM: 3.4 CHLORIDE: 99 CO2: 34 BUN: 18 CREATININE: 0.68 GLUCOSE: 96 COVID: NOTE DETECTED Electrocardiogram Date: 09/10/20 Findings: + SB @ (58bpm) LVH with repolarization abnormality. Compared to EKG from 06/03/19, T wave inversion now evident in lateral leads. Other Testing Echocardiogram Date: 09/07/18 EF 55 to 60%. No regional wall motion abnormalities. Mild LAD. Mild AR. Moderate MR. Trace to mild TR. Cardiac Catheterization Date: 01/23/12 No significant coronary artery disease. Normal left ventricular systolic function. Aortic arch and thoracic aortic dilatation. Normal appearance of aortic root graft. Mild AI. Aortoiliac arterial duplex 09/07/2018 No evidence of a Aoiliac aneurysm. Mild ectatic abdominal aorta (largest diameter 2.7 cm). Less than 49% stenosis in the aorto iliac system. Moderate diffuse calcific sclerosis. No significant change since last exam in 12/2016 per report.
[~2020-12-04 10:27] MED LIST changes: -ASPI325T39 PO; -ATEN50TA21 PO; +BUPIVACAINE 0.5 % 5 MG/1 ML MPF 30ML VIAL ONE; -CALC-354 PO; -HYDR-4313 PO; +LR 15ML/HR IV SCH; +LR 60ML/HR IV SCH; -MULTTAB58 PO; -NRN100 PO; -POTA10CA28 PO; -SIMV10TA5 PO; +ceFAZolin 2000MG 2,000 MG/15 ML SYR IV SCH
[2020-12-04] MEDS ORDERED: PHENYLEPHRINE 100MCG/ML 5ML SYR ONE (11:15)
[2020-12-04] MEDS ORDERED: DEXAMETHASONE SOD INJ 4 MG/ML VIAL ONE (11:15)
[2020-12-04] MEDS ORDERED: NEOSTIGMINE METHYLSULFATE 5 MG/5 ML SYR ONE (11:15)
[2020-12-04] MEDS ORDERED: LIDOCAINE HCL 2% 2 ML VIAL/AMP(20MG/ML) INFIL ONE (11:15)
[2020-12-04] MEDS ORDERED: LARYING-O-JET KIT (LTA) ONE (11:15)
[2020-12-04] MEDS ORDERED: GLYCOPYRROLATE 0.2 MG/ML VIAL ONE (11:15)
[2020-12-04] MEDS ORDERED: fentaNYL citrate 100 MCG/2 ML VIAL ONE ×3 (11:15→15:31)
[2020-12-04] MEDS ORDERED: ROCURONIUM BROMIDE 10 MG/ML 5 ML VIAL IV ONE (11:15)
[2020-12-04] MEDS ORDERED: ONDANSETRON INJ 2 MG/ML 2 ML VIAL ONE (11:15)
[2020-12-04] MEDS ORDERED: PROPOFOL IV EMULSION 10 MG/ML 20 ML VIAL IV ONE (11:15)
[2020-12-04] MEDS ORDERED: ePHEDrine sulfate 50 MG/ML SYR ONE (11:15)
--- NOTE | 2020-12-04 12:33 | History & Physical Bridge Note ---
Date of Service December 04, 2020 History & Physical Bridge Note I have examined the patient, reviewed the History & Physical and in the interval since the performance of the History & Physical I have noted the following changes of clinical significance: no changes noted
[2020-12-04] MEDS ORDERED: BUPIVACAINE 0.5 % 5 MG/1 ML PF 10ML VIAL ONE (12:35)
[2020-12-04] MEDS ORDERED: BACITRACIN INJ 50,000 UNIT VIAL ONE ×3 (13:07→15:52)
[2020-12-04] MEDS ORDERED: BUPIVACAINE/EPINEPHRINE 0.5% MPF 1:200,000 30 ML VIAL ONE (13:07)
[2020-12-04] MEDS ORDERED: METOCLOPRAMIDE HCL INJ 5 MG/ML 2 ML VIAL IV PRN ×2 (13:38→18:25)
[2020-12-04] MEDS ORDERED: ONDANSETRON INJ 2 MG/ML 2 ML VIAL IV PRN ×2 (13:38→18:25)
[2020-12-04] MEDS ORDERED: ePHEDrine sulfate 50 MG/ML AMP IV PRN (13:38)
[2020-12-04] MEDS ORDERED: PROMETHAZINE HCL 12.5 MG in SODIUM CHLORIDE 0.9% 50 ML IV PRN (13:38)
[2020-12-04] MEDS ORDERED: fentaNYL citrate 100 MCG/2 ML VIAL IV PRN (13:38)
[2020-12-04] MEDS ORDERED: KETOROLAC 30 MG/ML VIAL IV PRN (13:38)
[2020-12-04] MEDS ORDERED: HYDROmorphone INJ 2 MG/ML SYR/VIAL IV PRN (13:38)
[2020-12-04] MEDS ORDERED: ATROPINE SULFATE 0.1 MG/ML 10ML SYR IV PRN (13:38)
--- NOTE | 2020-12-04 16:06 | Fluoroscopy Report ---
FL ankle RT 2V CLINICAL HISTORY: Right ankle hardware removal/fusion. COMPARISON STUDY: Right ankle radiographs July 24, 2020. FLUOROSCOPY TIME: 1 minute and 47 seconds. FLUOROSCOPIC IMAGES: 3 FINDINGS: These images demonstrate removal of the fibular plate with tibiotalar joint fusion. Hardwar e is intact. There are no unexpected radiopaque foreign bodies. IMPRESSION: Fluoroscopy provided during hardware removal and tibiotalar joint fusion. ACT 112: Negative or not required by law. Electronically signed by: Nam Delgado M.D. 12/04/2020 4:05 PM
--- NOTE | 2020-12-04 16:26 | Post Operative Brief Note ---
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
--- NOTE | 2020-12-04 18:13 | Anesthesiology Progress Note ---
Date of Service December 04, 2020 Anesthesia Post Procedure Vital Signs Vital Signs: Temp Pulse Pulse Resp BP BP Pulse Ox 12/04/20 17:55 74 16 121/61 95 12/04/20 17:40 36.9 C 78 16 121/61 95 12/04/20 17:25 36.9 C 72 16 113/51 L 96 12/04/20 17:15 86 16 130/57 L 99 12/04/20 17:05 89 16 136/81 100 12/04/20 16:55 93 H 16 139/57 L 100 12/04/20 16:49 37.0 C 103 H 16 127/96 100 12/04/20 11:27 36.8 C 64 20 168/73 H 98 Pain Intensity Right Ankle: Pain Intensity: 4 Transfer of Care Handoff Completed per policy Notes Mental Status: alert / awake / arousable and participated in evaluation Patient Amnestic to Procedure: Yes Nausea / Vomiting: adequately controlled Pain: adequately controlled Airway Patency, RR, SpO2: stable & adequate BP & HR: stable & adequate Hydration State: stable & adequate Anesthetic Complications: no major complications apparent and Pt Satisfied with anesthetic care
[2020-12-04] MEDS ORDERED: HYDROmorphone INJ 0.5 MG/0.5 ML SYR IV PRN (18:25)
[2020-12-04] MEDS ORDERED: NALOXONE HCL 0.4 MG/1 ML VIAL/CARP IV PRN (18:25)
[2020-12-04] MEDS ORDERED: bisacodyL 10 MG SUPP PR PRN (18:25)
[2020-12-04] MEDS ORDERED: FUROSEMIDE 20 MG TAB PO PRN (18:25)
[2020-12-04] MEDS ORDERED: oxyCODONE HCL IR 5 MG TAB (IMMEDIATE RELEASE) PO PRN (18:25)
[2020-12-04] MEDS ORDERED: MAGNESIUM HYDROXIDE SUSP 30 ML UDC PO PRN (18:25)
[2020-12-04] MEDS ORDERED: ALUMINUM/MAGNESIUM SUSP 30 ML UDC PO PRN (18:25)
[2020-12-04] MEDS ORDERED: NON-FORMULARY MEDICATION (Acetaminophen 500 mg Capsule) PO PRN (18:25)
[2020-12-04] MEDS ORDERED: POTASSIUM CHLORIDE 10 MEQ TABCR PO PRN (18:48)
[2020-12-04] MEDS: SODIUM CHLORIDE 0.9% 1000ML 1,000 ML IV SCH (19:33)
[2020-12-04] MEDS: FERROUS GLUCONATE 324 MG TAB PO SCH (20:39)
[2020-12-04] MEDS: GABAPENTIN 100 MG CAP PO SCH (20:39)
[2020-12-04] MEDS: ASPIRIN 325 MG ECTAB PO SCH (20:41)
[2020-12-04] MEDS: DOCUSATE SODIUM 100 MG CAP PO SCH (20:42)
[2020-12-04] MEDS: ASCORBIC ACID 500 MG TAB PO SCH (20:42)
[2020-12-04] MEDS: KETOROLAC TROMETHAMINE 15 MG/ML VIAL IV SCH (20:43)
[2020-12-04] MEDS: ceFAZolin 1000MG 1,000 MG/7.5 ML SYR IV SCH (20:55)
[2020-12-04] MEDS ORDERED: SIMVASTATIN 10 MG TAB PO SCH (21:00)
[2020-12-04] MEDS ORDERED: SENNA 8.6 MG TAB PO SCH (21:00)
[2020-12-04] MEDS: ACETAMINOPHEN 500 MG TAB PO SCH (21:41)
[2020-12-04] MEDS: TAPENTADOL HCL ER 50 MG TABCR PO SCH (21:41)
[2020-12-05] MEDS: KETOROLAC TROMETHAMINE 15 MG/ML VIAL IV SCH ×3 (01:35→13:34)
[2020-12-05] MEDS: SODIUM CHLORIDE 0.9% 1000ML 1,000 ML IV SCH (05:44)
[2020-12-05] MEDS: ACETAMINOPHEN 500 MG TAB PO SCH ×2 (05:45→13:33)
[2020-12-05] MEDS: ceFAZolin 1000MG 1,000 MG/7.5 ML SYR IV SCH (05:45)
[2020-12-05 06:11] LABS: Hematocrit (blood only) 30.7 % (37-47); Hemoglobin 10.1 g/dL (12.0-16.0); Mean Corpuscular Hgb Conc 32.9 g/dL (32-36); Mean Corpuscular Volume 94.2 fL (80-100); Mean Platelet Volume 9.9 fL (7.4-10.4); Platelet Count 207 K/uL (130-400); RDW Coefficient of Variation 13.1 % (11.5-14.5); RDW Standard Deviation 45.3 fL (36.4-46.3); Red Blood Count 3.26 M/uL (4.2-5.4); White Blood Count 12.51 K/uL (4.8-10.8)
[2020-12-05 06:40] LABS: Creatinine Clr Calc Pharmacy 70.8 ml/min; Est GFR (African American) 101.5; Est GFR (Non-African American) 87.6; Potassium 3.1 mmol/L (3.5-5.1)
[2020-12-05] MEDS: ASPIRIN 325 MG ECTAB PO SCH (08:56)
[2020-12-05] MEDS: DOCUSATE SODIUM 100 MG CAP PO SCH (08:56)
[2020-12-05] MEDS: ASCORBIC ACID 500 MG TAB PO SCH (08:57)
[2020-12-05] MEDS: FERROUS GLUCONATE 324 MG TAB PO SCH (08:57)
[2020-12-05] MEDS: GABAPENTIN 100 MG CAP PO SCH (08:59)
[2020-12-05] MEDS: ATENOLOL 50 MG TABLET PO SCH ×2 (08:59→09:01)
[2020-12-05] MEDS ORDERED: MULTIVITAMIN TAB PO SCH ×2 (09:00)
[2020-12-05] MEDS ORDERED: POTASSIUM CHLORIDE 10 MEQ TABCR PO SCH (09:00)
[2020-12-05] MEDS ORDERED: CALCIUM CARBONATE 1250MG TAB PO SCH (09:00)
[2020-12-05] MEDS ORDERED: CHLORTHALIDONE 25 MG TAB PO SCH (09:00)
[2020-12-05] MEDS ORDERED: LOSARTAN POTASSIUM 50 MG TAB PO SCH (09:00)
[2020-12-05] MEDS ORDERED: ASPIRIN 325 MG ECTAB PO SCH (09:00)
[2020-12-05] MEDS: TAPENTADOL HCL ER 50 MG TABCR PO SCH (09:17)
[2020-12-05] MEDS ORDERED: POTASSIUM CHLORIDE CRTAB 20 MEQ TABCR PO ONE (09:30)
--- NOTE | 2020-12-05 09:59 | Progress Notes ---
DATE: 12/05/2020 SUBJECTIVE: An 80-year-old female status post right ankle hardware removal and subsequent arthrodesis. She is doing pretty well. Had a good night. Really no pain to speak of. No chest pain or shortness of breath. Not feeling dizzy or lightheaded. OBJECTIVE: VITAL SIGNS: Temperature 36.5. Vital signs stable. GENERAL: Physical examination shows a elderly female. She is lying in bed, looks comfortable. LUNGS: Clear to auscultation. HEART: Has a regular rate and rhythm. ABDOMEN: Soft, nontender, nondistended. EXTREMITIES: Grossly neurovascularly intact except as follows. Examination of the right lower extremity reveals the leg to be well aligned. The splint is clean, dry and intact and in place. Her toes are pink with brisk refill. She can dorsiflex and plantarflex her toes appropriately. No particular pain with this. She is neurologically intact. LABORATORY DATA: Hemoglobin 10.1. Hematocrit 30.7. Electrolytes are pretty stable. Potassium is a little bit low at 3.1. ASSESSMENT: An 80-year-old female postop day 1 from a right ankle hardware removal and arthrodesis. She is doing pretty well. Pain is controlled. Potassium is little low and we will supplement that. She is a bit anemic, but asymptomatic. PLAN: 1. DVT prophylaxis including thigh-high TEDs, SCDs, and aspirin twice a day. 2. PT/OT. Strict nonweightbearing right leg for the next 6 weeks. 3. Pain control, doing well with current pain regimen. 4. Disposition: We are going to hopefully discharge her to home later today if therapy goes okay.
--- NOTE | 2020-12-05 17:33 | Operative Report ---
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 There is no purulence. There was a bone and necrosis but no signs of superimposed infection. Fluids 1400 cc. Specimens Right ankle hardware Anesthesia Type General Regional Complications none Disposition Accompanied Patient To Recovery: No Disposition: Recovery Room Indications Patient is an 80-year-old female who sustained a severe comminuted and contaminated right ankle fracture dislocation a year and half ago. She underwent an emergent irrigation debridement and then ORIF. She subsequently developed advanced posttraumatic arthritis. She was having trouble even walking up. X-ray showed progressive ankle arthritis. An infectious work-up was done which was negative. Patient elected to see with surgical treatment. Description of Procedure Operative implants consist of: 1. Synthes 7.3 long threaded cannulated screw x1. 2. Synthes 6.5 cannulated screw x2. 3. 4.0 partially-threaded cancellous screws x3 with a total of 4 washers The patient was taken to the operating identified and placed on the operating table supine position but a contractors were properly padded. IV antibiotics tried by anesthesia team. A popliteal block had been provided in the holding area. A general anesthetic was implemented. The patient was then placed in the semileft lateral decubitus position using the beanbag for positioning. The right ankle and foot and leg were then scrubbed with Hibiclens and then prepped with ChloraPrep and draped in usual sterile fashion. A direct lateral approach to the fibula was then performed using the previous incision. Sharp dissection carried through subcutaneous tissues. This was taken directly down to the bone. I extended this incision distally over the cuboid and towards the fourth metatarsal base. Great care was taken to protect the peroneal tendons. I then skeletonized the distal fibula. I then removed the plate and then osteotomized the fibula and removed it completely. I then did a bit of anterior and posterior exposure to the tibia in order to resect some of the osteophytes as well as the extra calcified bone. I opened the ankle with a lamina medical imaging technician and then debrided the articular surface which was remaining off the tibia and the talus. This was done with a curette along with a bur. Once I got down to quality bone and medial exposure was performed. A medial approach to the ankle was then performed using the previous incision and extending it slightly distally over the talar neck. Sharp dissection got through subcu tissues directly down to the bone. The bone was skeletonized anteriorly to the ankle joint. I did remove both screws and the washer from the medial ankle. I then used the bur along with a curette debride the cartilage on the medial aspect of the ankle. I then irrigated the wound extensively. I did use a 2.5 mm drill bit to drill some holes in the distal tibia as well as in the talar dome. I then positioned the ankle in about 5 degrees of valgus and about 5 to 10 degrees of external rotation in neutral dorsiflexion. I then pinned it with a threaded guidewire through the lateral process of the talus directed medially and posteriorly into the tibia. This was verified fluoroscopically. I then made a stab incision just lateral to the Achilles tendon about 4 cm above the joint line and passed a guidewire through the posterior tibia directly to the talar neck. This exited the tibia in about the mid aspect the slightly anterior which was optimal. The position was verified. I then placed a final guidewire from the medial tibia to the anterior lateral aspect of the talus. I then placed the 7.3 cannulated screw first. Before I sent this down I did back the other wires out to allow for compression. I then placed the lateral screw followed by the medial screw. Some x-rays were obtained. Hardware was appropriately positioned. I then split the fibula and half. We curetted out the remaining fibula which was the discarded of cancellous bone. The lateral portion of the fibula was then fixed to the lateral aspect of the ankle with three 4.0 partially-threaded cancellous screws. The most proximal screw to get Alec did not get purchase and do was just slightly short so I had to extend the length. In order to not allowed to be too long I did place some extra washers to prevent it being too long and a prominent medially. X-rays were obtained in our opposition looked optimal. I then took some the cancellous bone impacted both medially and laterally. The wound had been irrigated. I injected locally with 30 cc of absent Marcaine with epinephrine. The turn was let down for turn time of 150 minutes. Hemostasis assured use electrocautery. The deep fascia over both wounds were then closed with 0 Vicryl suture in a [id number] fashion the subcutaneous tissue was then closed with combination of 2-0 and 3-0 Vicryl suture in buried interrupted fashion skin was closed with 0 nylon suture in horizontal mattress fashion the foot and ankle were then cleaned and dried a sterile dressing composed Xeroform, 4 x 4's, sterile cast padding, and a well-pa dded posterior and stirrup splint were applied. Patient then brought out of general incision transferred to the recovery room in stable condition. The patient tolerated procedure well and there were no complications. A Papo physician gynecological assistant, was present for the entire procedure. His assistance was required for proper patient positioning. Prepping and draping, surgical exposure, retraction, placing the hardware and holding of the foot during placement, creating the bone graft, closure of the wound, placing the sterile bandage. I attest to the content of the Intraoperative Record and any orders documented therein. Any exceptions are noted below.
--- NOTE | 2020-12-08 09:17 | Discharge Summary ---
Date of Service December 08, 2020 Discharge Data Consultations 12/04/20 18:25 Consult Case Management - Discharge Planning Routine Procedures Performed Operation Date: 12/04/20 12:30 Actual Procedures p Right Ankle Arthrodesis and Hardware Removal(Right) - Gerard Mtz MD Hospital Course (1) S/P ankle arthrodesis: This patient is a 80 year old female admitted on 12/04/20 and underwent ankle hardware removal and ankle arthrodesis. She tolerated the procedure well and there were no complications. Transferred to the PACU post op and later to the orthopedic floor for further care. She was given ancef for antibiotic prophylaxis. She was also given DELFINO stockings, SCDs, and aspirin for DVT prophylaxis. Hemoglobin, hematocrit, and vital signs were monitored during her hospital stay and remained stable. Did not require any blood transfusions. She did have some post op anemia and did receive an iron supplement. There were no complications during her hospital stay. By post op day #1 the patient was tolerating a regular diet, pain was reasonably controlled with oral pain medicine, and she was participating in physical therapy. On post op day #1 the patient was discharged home and set up with home health care. She was given printed discharge instructions including prescriptions for extra strength tylenol, aspirin, and oxycodone. She is nonweight bearing to the right lower extremity. Keep extremity elevated. Continue DELFINO stockings. Follow up approximately 2 weeks post op or sooner if there are problems or concerns. Coding Level of Care Code None Diagnoses S/P ankle arthrodesis Z98.1
== END 2020-12-05 16:07 | disposition home health service (06) ==
LOC: ASU 10:27 → 3W 16:31 → INTOOBSV 16:31

== ENCOUNTER 2022-09-23 11:24 | Inpatient (IN) ==
[2022-09-23] MEDS ORDERED: methylPREDNISolone 125 MG/2 ML VIAL IV STA (11:39)
[2022-09-23] MEDS ORDERED: guaiFENesin 600 MG TABCR PO STA (11:40)
[2022-09-23] MEDS ORDERED: ALBUT/IPRATROP 3MG/0.5MG NEB 3 ML VIAL NEB STA (11:40)
[2022-09-23] MEDS ORDERED: ACETAMINOPHEN 1,000 MG/100 ML VIAL IV STA (11:41)
--- NOTE | 2022-09-23 11:52 | Emergency Department Note ---
Impression & Plan Bronchitis, Hypoxia, Hypokalemia, Elevated troponin ED Provider Note NAME: APRIL ELIZABETH AGE: 81 SEX: F ARRIVES VIA: Ambulance INFORMANT: Patient ED PROVIDER(S): Juan A Sánchez MD CHIEF COMPLAINT: SOB PLAN: Disposition: Admit MEDICAL DECISION MAKING: The patient is a pleasant 81-year-old woman with a past medical history of aortic aneurysm history of repair remotely who presents to the emergency department with cough, congestion and chest tightness evolving since Thursday. She reports sensation of not being able to get her congestion out. She denies any history of lung disease but is a former smoker. She denies any nausea, vomiting, diarrhea or urinary symptoms. On arrival the patient is uncomfortable, no acute distress, afebrile with O2 saturation down to 88% on room air improving to mid 90s on 4 L nasal cannula. Vital signs are otherwise stable. She appears clinically dry. She has wheezes and rhonchi of bilateral lung noble with mild increased work of breathing. Patient was treated with IV fluid hydration, DuoNeb, guaifenesin, Solu-Medrol. EKG without overt acute ischemia. CXR negative for acute cardiopulmonary proce ss. WBC, H/H and platelets within normal limits. Chemistry without metabolic acidosis. Potassium 2.9 with repletion initiated. LFTs without significant abnormality. High-sensitivity troponin 21.8, nonspecific. BNP 149, also nonspecific. Lipase within normal limits. COVID-19, influenza and RSV PCR's were negative. Given the patient's hypoxia she was in agreement with plan for admission. For further evaluation of symptoms CT of the chest was ordered and is pending. Case was discussed with Lou Ramirez, [facility] PAC, with Dr. Lang, [facility] hospitalist who will evaluate the patient for admission. CTA of the chest was negative for PE. Note is made of mild subpleural bilateral lower lobe airspace opacities as well as bilateral lower lobe secretions within the lower lobe bronchi. Emphysema is present. Further management per admitting team. Triage Nursing notes reviewed and agree them. Prior medical records reviewed Vital Signs: reviewed and remarkable for hypoxia. Differential diagnosis: Reactive airway disease, pneumonia, pneumothorax, COPD, CHF, infections, cardiac ischemia, pulmonary embolism, musculoskeletal, gastrointestinal, as well as other pathologies. ER treatment provided: See below. Diagnostics interpreted by me: ECG: Sinus rhythm with PACs, 90 bpm, LVH, nonspecific ST and T wave abnormality, no overt ST elevation, QTC 518, QRS 88. Cardiac Monitoring: An order for continuous cardiac monitoring was placed and demonstrated sinus rhythm with PACs, 90 bpm, Laboratory studies: See below Imaging studies: See below Consultation(s): Case was discussed with Lou Ramirez, [facility] PAC, with Dr. Lang, [facility] hospitalist who will evaluate the patient for admission. HPI: The patient is a pleasant 81-year-old woman with a past medical history of aortic aneurysm history of repair remotely who presents to the emergency department with cough, congestion and chest tightness evolving since Thursday. She reports sensation of not being able to get her congestion out. She denies any history of lung disease but is a former smoker. She denies any nausea, vomiting, diarrhea or urinary symptoms. ROS: See above HPI for pertinent positives & negatives. A total of 10 systems reviewed and were otherwise negative. VITALS:See Below PHYSICAL EXAMINATION: GENERAL: Awake, alert, fatigued/uncomfortable-appearing, in no distress HENT: Normocephalic, atraumatic. Oropharynx with dry mucous membranes and otherwise unremarkable. EYES: Normal conjunctiva. Sclera non-icteric. NECK: Supple. No nuchal rigidity. FROM. No JVD. RESPIRATORY: Wheezes and rhonchi of bilateral lung noble with mild increased work of breathing. CARDIAC: Regular rate, normal rhythm. Extremities warm and well perfused. Pulses equal. ABDOMEN: Soft, non-distended. No tenderness to palpation. No rebound or guarding. No masses. RECTAL: Deferred. MUSCULOSKELETAL: Chest examination reveals no tenderness. The back is symmetrical on inspection without obvious abnormality. There is no CVA tenderness to palpation. No joint edema. LOWER EXTREMITIES: Calves are equal size bilaterally and non-tender. No edema. No discoloration. NEURO: Normal sensorium. No sensory or motor deficits noted. SKIN: No rash or jaundice noted. Juan A Sánchez MD Past Med/Surg History Medical History Anxiety Aortic aneurysm s/p repair (2010), follows with [facility] cardio Aortic regurgitation Breast cancer right, XRT in 1986 Chronic back pain Dyslipidemia Hypertension Mild coronary artery disease normal coronary arteries with mild luminal irregularities per 2012 cardiac cath Mitral regurgitation Osteoarthritis Osteoporosis, unspecified Post-traumatic arthritis of ankle Seasonal allergies Surgical History H/O decompression of ulnar nerve right H/O lumbar discectomy with hardware/cage History of appendectomy History of bilateral tubal ligation History of cardiac cath 2012- no stents History of carpal tunnel release right History of cataract surgery bilateral History of colonoscopy History of open reduction and internal fixation (ORIF) procedure wrist 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 History of tonsillectomy Hx of lumpectomy right breast with radiation S/P ankle arthrodesis S/P hardware removal Left wrist Status post open reduction and internal fixation (ORIF) of fracture Left wrist Status post open reduction with internal fixation (ORIF) of fracture of ankle Right ankle ORIF: 06/03/20: Grade view 1, MAC#3, ETT 7 at [facility] Status post thoracic aortic aneurysm repair with a stent (2010) CAROLE Loving Family History Mother Heart disease Other No family history of adverse response to anesthesia Social History Smoking Status: Former smoker Second Hand Exposure: No; Hx Alcohol Use: No Hx Substance Use: No Preferred Language: Guamanian Communication Ability: Effective Electric Spot 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 Required: No Beliefs That Will Affect Care: None marital status: Current Living Situation: Spouse Current Living Situation Comment: , son, & grandson Other Information That Helps Us Care for You: No Feels Safe at Home: Yes Safety Concerns: Feels Safe At This Time Assistive Devices: Cane, Denture - Upper and Glasses Assistive Devices Comment: upper dent and glasses Allergies Allergies Allergy/AdvReac Type Severity Reaction Status Date / Time azithromycin Allergy Severe throat Verified 04/16/22 10:33 swelling sulfamethoxazole Allergy Intermediate Hives Verified 04/16/22 10:33 trimethoprim Allergy Intermediate Hives Verified 04/16/22 10:33 penicillin V Allergy Mild arm Verified 04/16/22 10:33 swelling with PCN (tolerates oral PCN/Amoxicillin) Bactrim Allergy Unknown Hives Unverified 06/22/17 11:40 Home Meds Home Medications Medication Instructions Recorded Confirmed simvastatin 10 mg tablet 1 tab PO DAILY 07/20/18 09/23/22 furosemide 20 mg tablet 20 mg PO DAILY PRN swelling 06/03/19 09/23/22 multivitamin 1 tab PO QAM 06/03/19 09/23/22 aspirin 325 mg tablet 325 mg PO QAM 09/06/20 09/23/22 losartan 100 mg tablet 100 mg PO QAM 09/06/20 09/23/22 amlodipine 2.5 mg tablet 2.5 mg PO DAILY 09/23/22 09/23/22 buspirone 10 mg tablet 10 mg PO DAILY 09/23/22 09/23/22 calcium carbonate 600 mg-vitamin 1 tab PO DAILY 09/23/22 09/23/22 D3 20 mcg (800 unit) chewable tablet (Caltrate 600 plus D) gabapentin 300 mg capsule 300 mg PO BID 09/23/22 09/23/22 hydrochlorothiazide 25 mg tablet 25 mg PO DAILY 09/23/22 09/23/22 potassium chloride 10 mEq 10 meq PO AMPM 09/23/22 09/23/22 capsule,extended release sertraline 100 mg tablet 100 mg PO DAILY 09/23/22 09/23/22 Results & Data (ED) Vital Signs Vital Signs - 24 hr 09/23/22 11:43 09/23/22 11:43 09/23/22 11:43 Temperature 36.7 C Temperature Source Oral Pulse Rate 88 Pulse Rate from SpO2 Sensor Respiratory Rate 18 Respiratory Effort / Characteristics Non-Labored Respiratory Depth Normal Respiratory Pattern Regular Blood Pressure 131/62 Blood Pressure Mean 85 Pulse Oximetry 87 L 96 Oxygen Delivery Method Room Air Nasal Cannula Room Air Oxygen Flow Rate 4 Sepsis Recent Fever Within 48 Hours No Sepsis New/Unexplained Change in Mental Status No Sepsis Action Taken by Nursing No Action Required 09/23/22 11:43 09/23/22 12:01 09/23/22 13:01 Temperature Temperature Source Oral Pulse Rate 77 75 Pulse Rate from SpO2 Sensor 80 76 Respiratory Rate 19 26 H Respiratory Effort / Characteristics Respiratory Depth Respiratory Pattern Blood Pressure 139/65 156/66 H Blood Pressure Mean 89 96 Pulse Oximetry 96 96 Oxygen Delivery Method Nasal Cannula Nasal Cannula Oxygen Flow Rate 4 4 Sepsis Recent Fever Within 48 Hours Sepsis New/Unexplained Change in Mental Status Sepsis Action Taken by Nursing 09/23/22 13:30 09/23/22 13:30 09/23/22 14:00 Temperature Temperature Source Pulse Rate 88 Pulse Rate from SpO2 Sensor 91 H Respiratory Rate 23 Respiratory Effort / Characteristics Respiratory Depth Respiratory Pattern Blood Pressure 156/63 H 169/76 H Blood Pressure Mean 94 107 Pulse Oximetry 98 Oxygen Delivery Method Oxygen Flow Rate Sepsis Recent Fever Within 48 Hours Sepsis New/Unexplained Change in Mental Status Sepsis Action Taken by Nursing 09/23/22 14:00 Temperature Temperature Source Pulse Rate 89 Pulse Rate from SpO2 Sensor 94 H Respiratory Rate 21 Respiratory Effort / Characteristics Respiratory Depth Respiratory Pattern Blood Pressure Blood Pressure Mean Pulse Oximetry 96 Oxygen Delivery Method Oxygen Flow Rate Sepsis Recent Fever Within 48 Hours Sepsis New/Unexplained Change in Mental Status Sepsis Action Taken by Nursing Laboratory Data Attestation: I reviewed the patient's lab results. Result diagrams: 09/23/22 11:50 09/23/22 11:50 Lab Results 09/23/22 09/23/22 09/23/22 Range/Units 11:50 11:50 11:50 WBC 10.38 (4.8-10.8) K/ul RBC 4.49 (3.93-5.22) M/uL Hgb 13.6 (12.0-16.0) g/dl Hct 40.7 (34.1-44.9) % MCV 90.6 (80.0-100.0) fL MCH 30.3 (25.0-34.0) pg MCHC 33.4 (32.0-36.0) g/dL RDW Std Deviation 43.3 (36.4-46.3) fL RDW Coeff of Michael 13.1 (11.5-14.5) % Plt Count 172 (130-400) K/uL MPV 10.6 (9.4-12.3) fL Immature Gran % (Auto) 0.2 % Neut % (Auto) 84.5 % Lymph % (Auto) 8.2 % Millard % (Auto) 6.8 % Eos % (Auto) 0.0 % Baso % (Auto) 0.3 % Neut # (Auto) 8.77 H (1.4-6.5) K/uL Lymph # (Auto) 0.85 L (1.2-3.4) K/uL Millard # (Auto) 0.71 (0.24-0.82) K/uL Eos # (Auto) 0.00 (0-0.50) K/uL Baso # (Auto) 0.03 (0-0.2) K/uL Immature Gran # (Auto) 0.02 (0.00-0.02) K/uL Sodium 136 (136-145) mmol/L Potassium 2.9 L (3.5-5.1) mmol/L Chloride 94 L (98-107) mmol/L Carbon Dioxide 34 H (21-32) mmol/L Anion Gap 8 (3-11) BUN 14 (6-23) mg/dl Creatinine 0.54 L (0.6-1.2) mg/dl Est Cr Clr Drug Dosing 76.5 ml/min Est GFR ( Amer) 102.6 ml/min Est GFR (Non-Af Amer) 88.5 ml/min BUN/Creatinine Ratio 25.9 H (10-20) Glucose 144 H (70-99(Fasting)) mg/dl Calcium 9.0 (8.5-10.1) mg/dl Phosphorus 3.3 (2.5-4.9) mg/dl Magnesium 1.7 (1.7-2.4) mg/dl Total Bilirubin 0.8 (0.2-1.0) mg/dl AST 24 (13-39) U/L ALT 22 (7-52) U/L Alkaline Phosphatase 60 (34-104) U/L Troponin I High Sens 21.8 H (0-14) pg/ml B-Natriuretic Peptide 149 H (0-100) pg/ml Total Protein 6.8 (6.0-8.3) gm/dl Albumin 4.0 (3.4-5.0) gm/dl Globulin 2.8 (2.5-4.0) gm/dl Albumin/Globulin Ratio 1.4 (0.9-2) Lipase 14 (11-82) U/L Procalcitonin (0-0.5) ng/ml SARS-CoV-2 (PCR) (Negative) Influenza Type A (PCR) (Neg) Influenza Type B (PCR) (Neg) RSV (RT-PCR) (Neg) 09/23/22 09/23/22 Range/Units 11:50 12:50 WBC (4.8-10.8) K/ul RBC (3.93-5.22) M/uL Hgb (12.0-16.0) g/dl Hct (34.1-44.9) % MCV (80.0-100.0) fL MCH (25.0-34.0) pg MCHC (32.0-36.0) g/dL RDW Std Deviation (36.4-46.3) fL RDW Coeff of Michael (11.5-14.5) % Plt Count (130-400) K/uL MPV (9.4-12.3) fL Immature Gran % (Auto) % Neut % (Auto) % Lymph % (Auto) % Millard % (Auto) % Eos % (Auto) % Baso % (Auto) % Neut # (Auto) (1.4-6.5) K/uL Lymph # (Auto) (1.2-3.4) K/uL Millard # (Auto) (0.24-0.82) K/uL Eos # (Auto) (0-0.50) K/uL Baso # (Auto) (0-0.2) K/uL Immature Gran # (Auto) (0.00-0.02) K/uL Sodium (136-145) mmol/L Potassium (3.5-5.1) mmol/L Chloride (98-107) mmol/L Carbon Dioxide (21-32) mmol/L Anion Gap (3-11) BUN (6-23) mg/dl Creatinine (0.6-1.2) mg/dl Est Cr Clr Drug Dosing ml/min Est GFR ( Amer) ml/min Est GFR (Non-Af Amer) ml/min BUN/Creatinine Ratio (10-20) Glucose (70-99(Fasting)) mg/dl Calcium (8.5-10.1) mg/dl Phosphorus (2.5-4.9) mg/dl Magnesium (1.7-2.4) mg/dl Total Bilirubin (0.2-1.0) mg/dl AST (13-39) U/L ALT (7-52) U/L Alkaline Phosphatase (34-104) U/L Troponin I High Sens (0-14) pg/ml B-Natriuretic Peptide (0-100) pg/ml Total Protein (6.0-8.3) gm/dl Albumin (3.4-5.0) gm/dl Globulin (2.5-4.0) gm/dl Albumin/Globulin Ratio (0.9-2) Lipase (11-82) U/L Procalcitonin < 0.05 (0-0.5) ng/ml SARS-CoV-2 (PCR) NEGATIVE (Negative) Influenza Type A (PCR) Negative (Neg) Influenza Type B (PCR) Negative (Neg) RSV (RT-PCR) Negative (Neg) Administered Medications Ceftriaxone Sodium 2,000 mg/ (Dextrose) 70 mls @ 100 mls/hr IV Q24H JOSE; Protocol Stop: 09/30/22 17:44 Last Infusion: 09/23/22 20:00 Dose: 0 mls/hr Documented By: MARIA C Admin: 09/23/22 19:01 Dose: 100 mls/hr Documented By: ACE Doxycycline Hyclate 100 mg/ (Dextrose) 110 mls @ 50 mls/hr IV Q12H [facility] Stop: 09/30/22 17:44 Last Admin: 09/23/22 20:18 Dose: 50 mls/hr Documented By: MARIA C Discontinued Medications Albuterol (Albut/Ipratrop 3mg/0.5mg Neb 3 Ml Vial) 3 ml NEB NOW STA; Protocol Stop: 09/23/22 11:41 Last Admin: 09/23/22 11:55 Dose: 3 ml Documented By: KATARZYNA Fentanyl Citrate (Fentanyl Citrate 100 Mcg/2 Ml Vial) 25 mcg IV NOW STA Stop: 09/23/22 15:00 Last Admin: 09/23/22 16:04 Dose: 25 mcg Documented By: ACE Guaifenesin (Guaifenesin 600 Mg Tabcr) 600 mg PO NOW STA Stop: 09/23/22 11:41 Last Admin: 09/23/22 11:54 Dose: 600 mg Documented By: KATARZYNA Acetaminophen (Ofirmev) 1,000 mg in 100 mls @ 400 mls/hr IV NOW STA Stop: 09/23/22 11:55 Last Infusion: 09/23/22 12:10 Dose: 0 mls/hr Documented By: Admin: 09/23/22 11:55 Dose: 400 mls/hr Documented By: KATARZYNA Sodium Chloride (Nss 1000ml) 1,000 mls @ 999 mls/hr IV .Q1H1M ONE Stop: 09/23/22 14:39 Last Infusion: 09/23/22 14:48 Dose: 0 mls/hr Documented By: Admin: 09/23/22 13:47 Dose: 999 mls/hr Documented By: ISAÍAS Potassium Chloride (K Floyd / Wtr) 10 meq in 100 mls @ 100 mls/hr IV Q1H JOSE; Protocol Stop: 09/23/22 16:59 Last Infusion: 09/23/22 20:20 Dose: 0 mls/hr Documented By: MARIA C Admin: 09/23/22 19:01 Dose: 100 mls/hr Documented By: Infusion: 09/23/22 19:00 Dose: 0 mls/hr Documented By: Admin: 09/23/22 17:05 Dose: 100 mls/hr Documented By: ACE Ioversol (Optiray 350 100ml) 116 ml IV ONCE ONE Stop: 09/23/22 16:27 Last Admin: 09/23/22 20:17 Dose: Not Given Documented By: MARIA C Ioversol (Optiray 320 500ml) 116 ml IV ONCE ONE Stop: 09/23/22 16:28 Last Admin: 09/23/22 16:27 Dose: 116 ml Documented By: CARLOS Methylprednisolone (Methylprednisolone 125 Mg/2 Ml Vial) 125 mg IV NOW STA Stop: 09/23/22 11:40 Last Admin: 09/23/22 11:55 Dose: 125 mg Documented By: KATARZYNA Potassium Chloride (Potassium Chloride Crtab 20 Meq Tabcr) 40 meq PO NOW STA Stop: 09/23/22 16:06 Last Admin: 09/23/22 20:17 Dose: Not Given Documented By: MARIA C Imaging Data Radiologist's Impression: Chest X-Ray 09/23/22 11:38 XR chest 1V portable HISTORY: 81 years-old Female Chest Pain acute chest pain COMPARISON: Chest radiograph 06/22/2017 TECHNIQUE: AP view of the chest FINDINGS: Cardiac silhouette is enlarged. Prior median sternotomy. Unchanged pleural thickening of the lung apices. No pneumothorax, pleural effusion, airspace consolidation or overt pulmonary edema. Degenerative changes of the shoulders and spine. IMPRESSION: No acute process. ACT 112: Negative or not required by law. The above report was generated using voice recognition software. It may contain grammatical, syntax or spelling errors. Electronically signed by: Jordin Vela M.D. 09/23/2022 12:[address] ANGIOGRAPHY OF THE CHEST, PULMONARY EMBOLUS PROTOCOL CLINICAL HISTORY: Hypoxia. Left-sided chest pain. Evaluate for pulmonary embolus. COMPARISON STUDY: Chest CT August 21, 2010 and chest radiograph performed earlier today. TECHNIQUE: Following IV administration of 116 mL of Optiray, helical axial carmita ges of the chest were obtained utilizing the pulmonary embolus protocol. Maximal intensity projections and sagittal and coronal reformats were viewed on an independent 3D workstation. IV contrast was administered without complication. Automated exposure control was utilized for the study. A dose lowering technique was utilized adhering to the principles of ALARA. CT DOSE: 286.67 mGy.cm FINDINGS: No pulmonary emboli are identified. There is no thoracic aortic dissection. Postoperative findings consistent with repair of the aortic root with graft are noted. Dilatation of the distal ascending aorta and aortic root are noted. The proximal aortic arch measures up to 4.7 cm. There is no thoracic adenopathy. No pneumothorax or effusion is present. Emphysema is present. Biapical opacities are unchanged since CT of August 21, 2010 and represents scarring. There are secretions within the bilateral lower lobes with bronchial thickening. Mild subpleural bilateral lower lobe airspace opacities are present. No CT evidence for pulmonary edema. No fracture or suspicious lesion within the bony thorax is noted. Visualized upper abdomen is unremarkable. IMPRESSION: 1. No pulmonary emboli identified. 2. Status post aortic root repair. No thoracic aortic dissection. 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 3. Mild subpleural bilateral lower lobe airspace opacities. This may reflect atelectasis however given secretions within the bilateral lower lobe bronchi, aspiration pneumonitis or pneumonia cannot be excluded. 4. Emphysema. ACT 112: Negative or not required by law. Electronically signed by: Nam Delgado M.D. 09/23/2022 4:41 PM Dictated:09/23/22 1630 Transcribed: 09/23/22 1630 Discharge Plan Visit Data Chief Complaint: Shortness of Breath/Dyspnea Stated Complaint: SOB ED Provider: Juan A Sánchez Discharge Problem: Bronchitis, Hypoxia, Hypokalemia, Elevated troponin Patient Disposition: Admitted As Inpatient Discharge Instructions Interventions: ED Discharge Assessment Last Done: 09/23/22 16:35
--- NOTE | 2022-09-23 12:10 | XRay Report ---
XR chest 1V portable HISTORY: 81 years-old Female Chest Pain acute chest pain COMPARISON: Chest radiograph 06/22/2017 TECHNIQUE: AP view of the chest FINDINGS: Cardiac silhouette is enlarged. Prior median sternotomy. Unchanged pleural thickening of the lung api nona. No pneumothorax, pleural effusion, airspace consolidation or overt pulmonary edema. Degenerative changes of the shoulders and spine. IMPRESSION: No acute process. ACT 112: Negative or not required by law. The above report was generated using voice recognition software. It may contain grammatical, syntax o r spelling errors. Electronically signed by: Jordin Vela M.D. 09/23/2022 12:08 PM
[2022-09-23 12:15] LABS: Basophils # (auto) 0.03 K/uL (0-0.2); Basophils % (auto) 0.3 %; Hematocrit (blood only) 40.7 % (34.1-44.9); Hemoglobin 13.6 g/dl (12.0-16.0); Immature Granulocytes # (auto) 0.02 K/uL (0.00-0.02); Immature Granulocytes % (auto) 0.2 %; Lymphocytes # (auto) 0.85 K/uL (1.2-3.4); Lymphocytes % (auto) 8.2 %; Mean Corpuscular Hemoglobin 30.3 pg (25.0-34.0); Mean Corpuscular Hgb Conc 33.4 g/dL (32.0-36.0); Mean Corpuscular Volume 90.6 fL (80.0-100.0); Mean Platelet Volume 10.6 fL (9.4-12.3); Monocytes # (auto) 0.71 K/uL (0.24-0.82); Monocytes % (auto) 6.8 %; Neutrophils # (auto) 8.77 K/uL (1.4-6.5); Neutrophils % (auto) 84.5 %; Platelet Count 172 K/uL (130-400); RDW Coefficient of Variation 13.1 % (11.5-14.5); RDW Standard Deviation 43.3 fL (36.4-46.3); Red Blood Count 4.49 M/uL (3.93-5.22); White Blood Count 10.38 K/ul (4.8-10.8)
[2022-09-23 12:43] LABS: Albumin Globulin Ratio 1.4 (0.9-2); BUN Creatinine Ratio 25.9 (10-20); Bilirubin,Total 0.8 mg/dl (0.2-1.0); Creatinine Clr Calc Pharmacy 76.5 ml/min; Est GFR (African American) 102.6 ml/min; Est GFR (Non-African American) 88.5 ml/min; Globulin 2.8 gm/dl (2.5-4.0); Magnesium 1.7 mg/dl (1.7-2.4); Phosphorus 3.3 mg/dl (2.5-4.9); Potassium 2.9 mmol/L (3.5-5.1); Total Protein 6.8 gm/dl (6.0-8.3)
[2022-09-23 12:45] LABS: Troponin I High Sensitivity 21.8 pg/ml (0-14)
[2022-09-23] MEDS ORDERED: SODIUM CHLORIDE 0.9% 1000ML 1,000 ML IV ONE (13:39)
[2022-09-23 13:59] LABS: Influenza A virus by PCR Negative (Neg); Influenza B virus by PCR Negative (Neg); RSV by PCR Negative (Neg); SARS CoV2 RNA(COVID-19) Ceph NEGATIVE (Negative)
--- NOTE | 2022-09-23 14:13 | Electrocardiogram Report ---
Test Reason : Blood Pressure : / mmHG Vent. Rate : 090 BPM Atrial Rate : 090 BPM P-R Int : 178 ms QRS Dur : 088 ms QT Int : 424 ms P-R-T Axes : 081 074 118 degrees QTc Int : 518 ms Sinus rhythm with Premature atrial complexes Minimal voltage criteria for LVH, may be normal variant Nonspecific ST and T wave abnormality Prolonged QT Abnormal ECG When compared with ECG of 10-SEP-2020 11:42, Premature atrial complexes are now Present Vent. rate has increased BY 32 BPM Nonspecific T wave abnormality, worse in Anterior leads QT has lengthened Confirmed by Tuan Ruiz ([id number]) on 09/23/2022 2:12:58 PM Referred By: Confirmed By:Ciaran Ruiz
[2022-09-23] MEDS ORDERED: fentaNYL citrate 100 MCG/2 ML VIAL IV STA (14:59)
--- NOTE | 2022-09-23 15:01 | History & Physical Report ---
Date of Service September 23, 2022 Assessment & Plan (1) Bronchitis: Plan: Pt with worsening respiratory symptoms, abnormal lung exam, and new oxygen requirement. CTA negative for PE but question of pneumonia. There is also a question of prior reactive airway disease, and pt is a former smoker. May have underlying COPD but no prior diagnosis. Differential complicated bronchitis vs. pneumonia vs. exacerbation of underlying COPD/RAD. - Admit to PCU - Continue supplemental O2 - Continue steroids - prednisone 40 mg daily starting tomorrow, received IV methylpred in the ED - Empiric antibiotic coverage with ceftriaxone and doxycycline - Check BioFire for possible respiratory pathogen - Check procalcitonin - PRN Mucinex, flutter valve, incentive spirometry (2) Hypokalemia: Plan: Given 20 mEq IV in ED, will give an additional 40 mEq orally. Mag normal. - Recheck labs in AM (3) Hypoxia: (4) Elevated troponin: Plan: Minimally elevated - no acute ischemic changes on EKG. May be secondary to hypoxia in the setting of underlying mild CAD - Trend troponin - Repeat EKG in AM - Observe on the monitor overnight (5) Hypertension: (6) Dyslipidemia: (7) Mild coronary artery disease: Plan Continue other home medications as appropriate Pt seen and reviewed with attending physician, Dr. Lang. Plan of care discussed and as outlined above. Code Status: DNR/DNI DVT Prophylaxis: Macarena Ramirez PA-C History of Present Illness Chief Complaint: Trouble breathing Primary Care Provider: Ramon Quesada, This is an 81 y/o female with a PMH of HTN, prior thoracic aortic aneurysm repair, hx breast cancer, mild CAD, HTN, dyslipidemia, post-traumatic arthritis of right ankle, osteoporosis, former tobacco use and questionable hx of RAD who presented to the ED with progressive respiratory symptoms. She reports that she started with a cough three days ago - non-productive. Then developed associated nausea and vomiting. Not eating or drinking much of anything - tried to eat dinner last night but vomited it back up. Persistent nausea today. Mild SOB over the weekend but now worsening and woke up today around 4 am because couldn't breath so came to the ED for evaluation. Taking Nyquil and Dayquil for symptoms but no relief. Associated WRIGHT, dizziness with position changes. No syncope or falls. No diarrhea. Denies recent sick contacts. Having chills and sweats but didn't check temperature. Associated pain diffusely in chest and abdomen but more severe pain in left lateral chest/under left breast. Had flu vaccine this year, COVID vaccine with 2 boosters. Allergies Allergy/AdvReac Type Severity Reaction Status Date / Time azithromycin Allergy Severe throat Verified 04/16/22 10:33 swelling sulfamethoxazole Allergy Intermediate Hives Verified 04/16/22 10:33 trimethoprim Allergy Intermediate Hives Verified 04/16/22 10:33 penicillin V Allergy Mild arm Verified 04/16/22 10:33 swelling with PCN (tolerates oral PCN/Amoxicillin) Bactrim Allergy Unknown Hives Unverified 06/22/17 11:40 Home Medications Medication Instructions Recorded Confirmed Type simvastatin 10 mg tablet 1 tab PO DAILY 07/20/18 09/23/22 History furosemide 20 mg tablet 20 mg PO DAILY PRN swelling 06/03/19 09/23/22 History multivitamin 1 tab PO QAM 06/03/19 09/23/22 History aspirin 325 mg tablet 325 mg PO QAM 09/06/20 09/23/22 History losartan 100 mg tablet 100 mg PO QAM 09/06/20 09/23/22 History amlodipine 2.5 mg tablet 2.5 mg PO DAILY 09/23/22 09/23/22 History buspirone 10 mg tablet 10 mg PO DAILY 09/23/22 09/23/22 History calcium carbonate 600 mg-vitamin 1 tab PO DAILY 09/23/22 09/23/22 History D3 20 mcg (800 unit) chewable tablet (Caltrate 600 plus D) gabapentin 300 mg capsule 300 mg PO BID 09/23/22 09/23/22 History hydrochlorothiazide 25 mg tablet 25 mg PO DAILY 09/23/22 09/23/22 History potassium chloride 10 mEq 10 meq PO AMPM 09/23/22 09/23/22 History capsule,extended release sertraline 100 mg tablet 100 mg PO DAILY 09/23/22 09/23/22 History Past Med/Surg History Medical History Anxiety Aortic aneurysm s/p repair (2010), follows with [facility] cardio Aortic regurgitation Breast cancer right, XRT in 1986 Chronic back pain Dyslipidemia Hypertension Mild coronary artery disease normal coronary arteries with mild luminal irregularities per 2012 cardiac cath Mitral regurgitation Osteoarthritis Osteoporosis, unspecified Post-traumatic arthritis of ankle Seasonal allergies Surgical History H/O decompression of ulnar nerve right H/O lumbar discectomy with hardware/cage History of appendectomy History of bilateral tubal ligation History of cardiac cath 2012- no stents History of carpal tunnel release right History of cataract surgery bilateral History of colonoscopy History of open reduction and internal fixation (ORIF) procedure wrist 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 History of tonsillectomy Hx of lumpectomy right breast with radiation S/P ankle arthrodesis S/P hardware removal Left wrist Status post open reduction and internal fixation (ORIF) of fracture Left wrist Status post open reduction with internal fixation (ORIF) of fracture of ankle Right ankle ORIF: 06/03/20: Grade view 1, MAC#3, ETT 7 at [facility] Status post thoracic aortic aneurysm repair with a stent (2010) [place] Family History Mother Heart disease Other No family history of adverse response to anesthesia Social History Smoking Status: Former smoker Second Hand Exposure: No; Hx Alcohol Use: No Hx Substance Use: No Preferred Language: Swedish Communication Ability: Effective 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 Beliefs That Will Affect Care: None marital status: Current Living Situation: Spouse Current Living Situation Comment: , son, & grandson Other Information That Helps Us Care for You: No Feels Safe at Home: Yes Safety Concerns: Feels Safe At This Time Assistive Devices: Cane Assistive Devices Comment: upper dent and glasses Review of Systems Constitutional: + chills, + sweats, + fatigue and + anorexia Eyes: no diplopia and no worsening vision Ear, Nose, Mouth, Throat: + nasal discharge, + post nasal drip and + sinus pain/pressure; no sore throat Respiratory: + cough, + dyspnea, + pain with cough and + wheezing Cardiovascular: + chest pain, + palpitations and + lightheadedness; no syncope Gastrointestinal: + abdominal pain, + nausea and + vomiting; no diarrhea/loose stools and no blood in stools Genitourinary: no dysuria and no hematuria Musculoskeletal: + joint pain and + myalgia Integumentary: no rash and no yellowing of the skin Neurologic: + generalized weakness and + headache(s) Psychiatric: no depression Physical Exam Constitutional: well developed and well nourished; no acute distress Eyes: + anicteric sclerae Neck: trachea midline Respiratory: no respiratory distress and no labored breathing Auscultation: + diminished lung sounds, + rhonchi and + wheezes Cardiovascular: Rate/Rhythm: regular rate and regular rhythm Vessels: radial pulses present Extremities: no pedal edema Gastrointestinal (Abdomen): Inspection/Auscultation: normal bowel sounds; abdomen not distended Percussion/Palpation: + abdomen tender (mild diffuse) and abdomen soft Musculoskeletal: right ankle with brace in place (chronic issues) Skin: no jaundice Neurologic: moves all extremities; no focal motor deficits and not confused Psychiatric: A+Ox3, euthymic affect Results & Data Results & Data ([facility]) Vital Signs (Past 12 Hours) Vital Signs Temp Pulse Resp BP Pulse Ox O2 Del Method O2 Flow Rate 09/23/22 14:00 89 21 96 09/23/22 14:00 169/76 H 09/23/22 13:30 88 23 98 09/23/22 13:30 156/63 H 09/23/22 13:01 75 26 H 156/66 H 96 Nasal Cannula 4 09/23/22 12:01 77 19 139/65 96 Nasal Cannula 4 09/23/22 11:43 Room Air 09/23/22 11:43 96 Nasal Cannula 4 09/23/22 11:43 36.7 C 88 18 131/62 87 L Room Air Laboratory Results Laboratory Results - last 24 hr 09/23/22 09/23/22 09/23/22 11:50 11:50 11:50 WBC 10.38 RBC 4.49 Hgb 13.6 Hct 40.7 MCV 90.6 MCH 30.3 MCHC 33.4 RDW Std Deviation 43.3 RDW Coeff of Michael 13.1 Plt Count 172 MPV 10.6 Immature Gran % (Auto) 0.2 Neut % (Auto) 84.5 Lymph % (Auto) 8.2 Allen % (Auto) 6.8 Eos % (Auto) 0.0 Baso % (Auto) 0.3 Neut # (Auto) 8.77 H Lymph # (Auto) 0.85 L Allen # (Auto) 0.71 Eos # (Auto) 0.00 Baso # (Auto) 0.03 Immature Gran # (Auto) 0.02 Sodium 136 Potassium 2.9 L Chloride 94 L Carbon Dioxide 34 H Anion Gap 8 BUN 14 Creatinine 0.54 L Est Cr Clr Drug Dosing 76.5 Est GFR ( Amer) 102.6 Est GFR (Non-Af Amer) 88.5 BUN/Creatinine Ratio 25.9 H Glucose 144 H Calcium 9.0 Phosphorus 3.3 Magnesium 1.7 Total Bilirubin 0.8 AST 24 ALT 22 Alkaline Phosphatase 60 Troponin I High Sens 21.8 H B-Natriuretic Peptide 149 H Total Protein 6.8 Albumin 4.0 Globulin 2.8 Albumin/Globulin Ratio 1.4 Lipase 14 SARS-CoV-2 (PCR) Influenza Type A (PCR) Influenza Type B (PCR) RSV (RT-PCR) 09/23/22 12:50 WBC RBC Hgb Hct MCV MCH MCHC RDW Std Deviation RDW Coeff of Michael Plt Count MPV Immature Gran % (Auto) Neut % (Auto) Lymph % (Auto) Allen % (Auto) Eos % (Auto) Baso % (Auto) Neut # (Auto) Lymph # (Auto) Allen # (Auto) Eos # (Auto) Baso # (Auto) Immature Gran # (Auto) Sodium Potassium Chloride Carbon Dioxide Anion Gap BUN Creatinine Est Cr Clr Drug Dosing Est GFR ( Amer) Est GFR (Non-Af Amer) BUN/Creatinine Ratio Glucose Calcium Phosphorus Magnesium Total Bilirubin AST ALT Alkaline Phosphatase Troponin I High Sens B-Natriuretic Peptide Total Protein Albumin Globulin Albumin/Globulin Ratio Lipase SARS-CoV-2 (PCR) NEGATIVE Influenza Type A (PCR) Negative Influenza Type B (PCR) Negative RSV (RT-PCR) Negative Diagnostic Findings Chest X-ray 09/23/22 - IMPRESSION: No acute process. Medications Administered Discontinued Medications Albuterol (Albut/Ipratrop 3mg/0.5mg Neb 3 Ml Vial) 3 ml NEB NOW STA; Protocol Stop: 09/23/22 11:41 Last Admin: 09/23/22 11:55 Dose: 3 ml Documented By: KATARZYNA Guaifenesin (Guaifenesin 600 Mg Tabcr) 600 mg PO NOW STA Stop: 09/23/22 11:41 Last Admin: 09/23/22 11:54 Dose: 600 mg Documented By: KATARZYNA Acetaminophen (Ofirmev) 1,000 mg in 100 mls @ 400 mls/hr IV NOW STA Stop: 09/23/22 11:55 Last Infusion: 09/23/22 12:10 Dose: 0 mls/hr Documented By: Admin: 09/23/22 11:55 Dose: 400 mls/hr Documented By: KATARZYNA Sodium Chloride (Nss 1000ml) 1,000 mls @ 999 mls/hr IV .Q1H1M ONE Stop: 09/23/22 14:39 Last Admin: 09/23/22 13:47 Dose: 999 mls/hr Documented By: ISAÍAS Methylprednisolone (Methylprednisolone 125 Mg/2 Ml Vial) 125 mg IV NOW STA Stop: 09/23/22 11:40 Last Admin: 09/23/22 11:55 Dose: 125 mg Documented By: KATARZYNA Code Status & VTE Plan VTE Prophylaxis Plan VTE Prophylaxis will be ordered: Yes Supervising Physician Co-Signing Physician Notes Pt seen and examined by me, care coordinated w/ Olga Ramirez PA-C, pls refer to her note above for further detail. 81 y/o F with hx of prior thoracic aortic aneurysm repair, hx breast cancer, mild CAD, HTN, dyslipidemia, post-traumatic arthritis of right ankle, osteoporosis, former tobacco use and questionable hx of RAD who presented to the ED with progressive respiratory symptoms. +cough that started three days ago - non-productive. Now with shortness of breath and on suppl. oxygen in ED. She is also hypokalemic in ED, with potassium 2.9. CXR in ED unremarkable. CTA chest obtained and ruled out PE. She however has some signs of bronchitis/ developing pna on CT. On physical exam, patient is alert oriented answering questions appropriately. Lung sounds are coarse, with rhonchi and some wheezes noted. Heart sounds regular. Abdomen soft nontender nondistended. No lower extremity edema noted. Patient moves extremities without difficulty. Speech is fluent. Skin is warm and dry. Will obtain procalcitonin. She received Solu-Medrol in ED. We will continue with prednisone and add antibiotic coverage. We will continue to closely monitor on tele. Also add guaifenesin, flutter valve, spirometer. MD Rickey
[2022-09-23] MEDS ORDERED: POTASSIUM CHLORIDE CRTAB 20 MEQ TABCR PO STA (16:05)
[2022-09-23] MEDS ORDERED: OPTIRAY 350 100ml IV ONE (16:26)
[2022-09-23] MEDS ORDERED: OPTIRAY 320 500ml IV ONE (16:27)
--- NOTE | 2022-09-23 16:43 | CT Scan Report ---
CT ANGIOGRAPHY OF THE CHEST, PULMONARY EMBOLUS PROTOCOL CLINICAL HISTORY: Hypoxia. Left-sided chest pain. Evaluate for pulmonary embolus. COMPARISON STUDY: Chest CT August 21, 2010 and chest radiograph performed earlier today. TECHNIQUE: Following IV administration of 116 mL of Optiray, helical axial images of the chest were o btained utilizing the pulmonary embolus protocol. Maximal intensity projections and sagittal and cor onal reformats were viewed on an independent 3D workstation. IV contrast was administered without co mplication. Automated exposure control was utilized for the study. A dose lowering technique was ut ilized adhering to the principles of ALARA. CT DOSE: 286.67 mGy.cm FINDINGS: No pulmonary emboli are identified. There is no thoracic aortic dissection. Postoperative findings consistent with repair of the aortic root with graft are noted. Dilatation of the distal asc ending aorta and aortic root are noted. The proximal aortic arch measures up to 4.7 cm. There is no t horacic adenopathy. No pneumothorax or effusion is present. Emphysema is present. Biapical opacities are unchanged since CT of August 21, 2010 and represents scarring. There are secretions within the b ilateral lower lobes with bronchial thickening. Mild subpleural bilateral lower lobe airspace opaciti es are present. No CT evidence for pulmonary edema. No fracture or suspicious lesion within the bony thorax is noted. Visualized upper abdomen is unremarkable. IMPRESSION: 1. No pulmonary emboli identified. 2. Status post aortic root repair. No thoracic aortic dissection. Dilatation of the aortic arch, corinna uring up to 4.7 cm. 3. Mild subpleural bilateral lower lobe airspace opacities. This may reflect atelectasis however give n secretions within the bilateral lower lobe bronchi, aspiration pneumonitis or pneumonia cannot be e xcluded. 4. Emphysema. ACT 112: Negative or not required by law. Electronically signed by: Nam Delgado M.D. 09/23/2022 4:41 PM
[2022-09-23] MEDS: POTASSIUM CHLORIDE / WTR 10 MEQ/100 ML PLCT IV SCH ×2 (17:05→19:01)
[2022-09-23] MEDS: cefTRIAXone SODIUM 2,000 MG in DEXTROSE 5% 50 ML IV SCH (19:01)
[2022-09-23 19:05] LABS: Adenovirus PCR Not Detected (NotDetected); Bordetella parapertussis PCR Not Detected (NotDetected); Bordetella pertussis PCR Not Detected (NotDetected); Chlamydia pneumoniae PCR Not Detected (NotDetected); Coronavirus 229E PCR Not Detected (NotDetected); Coronavirus CoV-2 (COVID19)PCR Not Detected (NotDetected); Coronavirus HKU1 PCR Not Detected (NotDetected); Coronavirus NL63 PCR Not Detected (NotDetected); Coronavirus OC43PCR Not Detected (NotDetected); Human Metapneumovirus PCR Not Detected (NotDetected); Influenza A PCR Not Detected (NotDetected); Influenza B PCR Not Detected (NotDetected); Mycoplasma pneumoniae PCR Not Detected (NotDetected); Parainfluenza Virus 1 PCR Not Detected (NotDetected); Parainfluenza Virus 2 PCR Not Detected (NotDetected); Parainfluenza Virus 3 PCR Not Detected (NotDetected); Parainfluenza Virus 4 PCR Not Detected (NotDetected); Respiratory Syncytial VirusPCR Not Detected (NotDetected); Rhinovirus/Enterovirus PCR Not Detected (NotDetected)
[2022-09-23] MEDS: DOXYCYCLINE HYCLATE 100 MG in DEXTROSE 5% 100 ML IV SCH (20:18)
[2022-09-23] MEDS: GABAPENTIN 300 MG CAP PO SCH (21:19)
[2022-09-23] MEDS: FAMOTIDINE 20 MG in SYRINGE 3 ML IV SCH (21:19)
[2022-09-23] MEDS: POTASSIUM CHLORIDE 10 MEQ TABCR PO SCH (21:19)
[2022-09-23] MEDS ORDERED: traMADol HCL 50 MG TABLET PO PRN (22:47)
[2022-09-23] MEDS ORDERED: KETOROLAC TROMETHAMINE 15 MG/ML VIAL IV ONE (22:47)
[2022-09-24 06:25] LABS: Basophils # (auto) 0.01 K/uL (0-0.2); Basophils % (auto) 0.1 %; Hematocrit (blood only) 36.9 % (34.1-44.9); Hemoglobin 12.7 g/dl (12.0-16.0); Immature Granulocytes # (auto) 0.03 K/uL (0.00-0.02); Immature Granulocytes % (auto) 0.3 %; Lymphocytes # (auto) 1.36 K/uL (1.2-3.4); Lymphocytes % (auto) 12.4 %; Mean Corpuscular Hemoglobin 30.7 pg (25.0-34.0); Mean Corpuscular Hgb Conc 34.4 g/dL (32.0-36.0); Mean Corpuscular Volume 89.1 fL (80.0-100.0); Monocytes # (auto) 0.86 K/uL (0.24-0.82); Monocytes % (auto) 7.8 %; Neutrophils # (auto) 8.75 K/uL (1.4-6.5); Neutrophils % (auto) 79.4 %; Platelet Count 176 K/uL (130-400); RDW Coefficient of Variation 13.1 % (11.5-14.5); RDW Standard Deviation 42.7 fL (36.4-46.3); Red Blood Count 4.14 M/uL (3.93-5.22); White Blood Count 11.01 K/ul (4.8-10.8)
[2022-09-24 07:14] LABS: Calcium 8.2 mg/dl (8.5-10.1); Creatinine Clr Calc Pharmacy 82.6 ml/min; Est GFR (African American) 105.2 ml/min; Est GFR (Non-African American) 90.8 ml/min; Magnesium 1.7 mg/dl (1.7-2.4); Potassium 3.1 mmol/L (3.5-5.1)
[2022-09-24] MEDS: ACETAMINOPHEN 325 MG TAB PO PRN (08:26)
[2022-09-24] MEDS: DOXYCYCLINE HYCLATE 100 MG in DEXTROSE 5% 100 ML IV SCH ×2 (08:26→20:16)
[2022-09-24] MEDS: guaiFENesin/DEXTROM SYRUP 100MG/10MG 5ML UDC PO PRN (08:26)
[2022-09-24] MEDS: GABAPENTIN 300 MG CAP PO SCH ×2 (08:27→20:08)
[2022-09-24] MEDS: busPIRone 5 MG TAB PO SCH (08:27)
[2022-09-24] MEDS: predniSONE 20 MG TAB PO SCH (08:27)
[2022-09-24] MEDS: SERTRALINE HCL 100 MG TABLET PO SCH (08:27)
[2022-09-24] MEDS: FAMOTIDINE 20 MG in SYRINGE 3 ML IV SCH ×2 (08:27→20:07)
[2022-09-24] MEDS: LOSARTAN POTASSIUM 50 MG TAB PO SCH (08:28)
[2022-09-24] MEDS: ASPIRIN 325 MG ECTAB PO SCH (08:28)
[2022-09-24] MEDS: SIMVASTATIN 10 MG TAB PO SCH (08:28)
[2022-09-24] MEDS: POTASSIUM CHLORIDE 10 MEQ TABCR PO SCH ×2 (08:28→20:16)
[2022-09-24] MEDS: MULTIVITAMIN TAB PO SCH (08:30)
[2022-09-24] MEDS: ENOXAPARIN INJ 40 MG/0.4 ML SYR SQ SCH (08:31)
[2022-09-24] MEDS ORDERED: amLODIPine BESYLATE 5 MG TAB PO SCH (09:00)
[2022-09-24] MEDS ORDERED: hydroCHLOROthiazide 25 MG TAB PO SCH (09:00)
[2022-09-24] MEDS ORDERED: POTASSIUM CHLORIDE CRTAB 20 MEQ TABCR PO STA (13:11)
--- NOTE | 2022-09-24 13:19 | Electrocardiogram Report ---
Test Reason : Blood Pressure : / mmHG Vent. Rate : 084 BPM Atrial Rate : 095 BPM P-R Int : 192 ms QRS Dur : 090 ms QT Int : 436 ms P-R-T Axes : 082 074 098 degrees QTc Int : 515 ms Sinus rhythm with premature atrial complexes Minimal voltage criteria for LVH, may be normal variant Prolonged QT Abnormal ECG When compared with ECG of 23-SEP-2022 11:33, Nonspecific T wave abnormality, improved in Anterior leads Confirmed by Tuan Ruiz ([id number]) on 09/24/2022 1:19:01 PM Referred By: REFERRED SELF Confirmed By:Ciaran Ruiz
[2022-09-24] MEDS: LIDOCAINE 5% 1 PATCH TD SCH (13:35)
--- NOTE | 2022-09-24 13:56 | Hospitalist Progress Note ---
Date of Service September 24, 2022 Assessment & Plan (1) Bronchitis: Plan: Pt with worsening respiratory symptoms, abnormal lung exam, and new oxygen requirement. CTA negative for PE but question of pneumonia. There is also a question of prior reactive airway disease, and pt is a former smoker. May have underlying COPD but no prior diagnosis. Differential complicated bronchitis vs. pneumonia vs. exacerbation of underlying COPD/RAD. - Admit to PCU - Continue supplemental O2 - Continue steroids - prednisone 40 mg daily, received IV methylpred in the ED - Empiric antibiotic coverage with ceftriaxone and doxycycline - Check BioFire for possible respiratory pathogen - biofire negative - Checked procalcitonin - negative - PRN Mucinex, flutter valve, incentive spirometry 09/24 Pt is breathing comfortably on room air (2) Hypokalemia: Plan: - replete and monitor (3) Hypoxia: (4) Elevated troponin: Plan: Minimally elevated - no acute ischemic changes on EKG. May be secondary to hypoxia in the setting of underlying mild CAD - Trend troponin - Observe on the monitor (5) Hypertension: Plan: - cont. home meds as appropriate - cont. to monitor BP (6) Dyslipidemia: (7) Mild coronary artery disease: Plan Continue other home medications as appropriate Code Status: DNR/DNI DVT Prophylaxis: Lovenox Admission and Anticipated Discharge Date Admission Date: September 23, 2022 Subjective Pt seen in follow up of hypoxia 2/2 bronchitis/ pna Currently off oxygen and breathing comfortably on room air No fever, chills. Continues to have lower ribcage chest pain, which seems to be pleuritic as is is worse with deep breathing and movement. Appears more comfortable than yesterday. No abd. pain, n/v, const., diarrhea Review of Systems Review of Systems: All systems reviewed & are unremarkable except as noted in Subjective Physical Exam Physical Exam: Constitutional:L elderly F in no ac lisbeth distress Eyes: + anicteric scler ae Neck: supple Respiratory: no respiratory dis tress and no labor ed breathing, CTAB , + minimal rhonch i Cardiovascular:L Rate/Rhythm: regul ar rate and regula r rhythm Vessels: radial pulses pre sent Extremities: no pedal edema Gastrointestinal ( Abdomen): Inspection/Auscult ation: normal lisette l sounds; abdomen not distended, + u pper abdomen/lower chest tender (mil d diffuse) and abd omen soft Musculoskeletal: right ankle with b race in place (chr onic issues) Skin: no jaundice Neurologic: moves all extremit ies; no focal jabier r deficits and not confused Psychiatric: A+Ox3, euthymic af fect Results & Data Results & Data ([facility]) Vital Signs (Past 12 Hours) Vital Signs Temp Pulse Pulse Resp BP BP Pulse Ox 09/24/22 12:00 36.7 C 77 19 122/74 97 09/24/22 06:20 72 09/24/22 08:00 09/24/22 08:00 36.8 C 79 18 134/78 97 09/24/22 03:13 36.8 C 80 18 140/79 97 O2 Del Method O2 Flow Rate 09/24/22 12:00 Room Air 09/24/22 06:20 09/24/22 08:00 Nasal Cannula 2 09/24/22 08:00 Nasal Cannula 09/24/22 03:13 Nasal Cannula 1.5 Laboratory Results 09/24/22 09/24/22 09/23/22 Range/Units 05:51 05:51 21:27 WBC 11.01 H (4.8-10.8) K/ul RBC 4.14 (3.93-5.22) M/uL Hgb 12.7 (12.0-16.0) g/dl Hct 36.9 (34.1-44.9) % MCV 89.1 (80.0-100.0) fL MCH 30.7 (25.0-34.0) pg MCHC 34.4 (32.0-36.0) g/dL RDW Std Deviation 42.7 (36.4-46.3) fL RDW Coeff of Michael 13.1 (11.5-14.5) % Plt Count 176 (130-400) K/uL MPV 11.0 (9.4-12.3) fL Immature Gran % (Auto) 0.3 % Neut % (Auto) 79.4 % Lymph % (Auto) 12.4 % [place] % (Auto) 7.8 % Eos % (Auto) 0.0 % Baso % (Auto) 0.1 % Neut # (Auto) 8.75 H (1.4-6.5) K/uL Lymph # (Auto) 1.36 (1.2-3.4) K/uL [place] # (Auto) 0.86 H (0.24-0.82) K/uL Eos # (Auto) 0.00 (0-0.50) K/uL Baso # (Auto) 0.01 (0-0.2) K/uL Immature Gran # (Auto) 0.03 H (0.00-0.02) K/uL Sodium 134 L (136-145) mmol/L Potassium 3.1 L (3.5-5.1) mmol/L Chloride 95 L (98-107) mmol/L Carbon Dioxide 31 (21-32) mmol/L Anion Gap 8 (3-11) BUN 14 (6-23) mg/dl Creatinine 0.50 L (0.6-1.2) mg/dl Est Cr Clr Drug Dosing 82.6 ml/min Est GFR ( Amer) 105.2 ml/min Est GFR (Non-Af Amer) 90.8 ml/min BUN/Creatinine Ratio 28.0 H (10-20) Glucose 104 H (70-99(Fasting)) mg/dl Calcium 8.2 L (8.5-10.1) mg/dl Magnesium 1.7 (1.7-2.4) mg/dl Troponin I High Sens 21.3 H (0-14) pg/ml Procalcitonin (0-0.5) ng/ml Adenovirus (PCR) (NotDetected) B. pertussis DNA (PCR) (NotDetected) B.parapertussis DNA PCR (NotDetected) C. pneumoniae DNA (PCR) (NotDetected) Coronavirus OC43 (PCR) (NotDetected) Coronavirus HKU1 (PCR) (NotDetected) Coronavirus 229E (PCR) (NotDetected) SARS-CoV-2 (PCR) (Negative) Coronavirus NL63 (PCR) (NotDetected) Human Metapneumovir PCR (NotDetected) Influenza Type A (PCR) (Neg) Influenza Type B (PCR) (Neg) M. pneumoniae (PCR) (NotDetected) Parainfluenza 1 (PCR) (NotDetected) Parainfluenza 2 (PCR) (NotDetected) Parainfluenza 3 (PCR) (NotDetected) Parainfluenza 4 (PCR) (NotDetected) RSV (RT-PCR) (Neg) RSV (PCR) (NotDetected) Entero/Rhino (PCR) (NotDetected) 09/23/22 09/23/22 09/23/22 Range/Units 18:04 17:16 12:50 WBC (4.8-10.8) K/ul RBC (3.93-5.22) M/uL Hgb (12.0-16.0) g/dl Hct (34.1-44.9) % MCV (80.0-100.0) fL MCH (25.0-34.0) pg MCHC (32.0-36.0) g/dL RDW Std Deviation (36.4-46.3) fL RDW Coeff of Michael (11.5-14.5) % Plt Count (130-400) K/uL MPV (9.4-12.3) fL Immature Gran % (Auto) % Neut % (Auto) % Lymph % (Auto) % [place] % (Auto) % Eos % (Auto) % Baso % (Auto) % Neut # (Auto) (1.4-6.5) K/uL Lymph # (Auto) (1.2-3.4) K/uL [place] # (Auto) (0.24-0.82) K/uL Eos # (Auto) (0-0.50) K/uL Baso # (Auto) (0-0.2) K/uL Immature Gran # (Auto) (0.00-0.02) K/uL Sodium (136-145) mmol/L Potassium (3.5-5.1) mmol/L Chloride (98-107) mmol/L Carbon Dioxide (21-32) mmol/L Anion Gap (3-11) BUN (6-23) mg/dl Creatinine (0.6-1.2) mg/dl Est Cr Clr Drug Dosing ml/min Est GFR ( Amer) ml/min Est GFR (Non-Af Amer) ml/min BUN/Creatinine Ratio (10-20) Glucose (70-99(Fasting)) mg/dl Calcium (8.5-10.1) mg/dl Magnesium (1.7-2.4) mg/dl Troponin I High Sens 22.1 H (0-14) pg/ml Procalcitonin (0-0.5) ng/ml Adenovirus (PCR) Not Detected (NotDetected) B. pertussis DNA (PCR) Not Detected (NotDetected) B.parapertussis DNA PCR Not Detected (NotDetected) C. pneumoniae DNA (PCR) Not Detected (NotDetected) Coronavirus OC43 (PCR) Not Detected (NotDetected) Coronavirus HKU1 (PCR) Not Detected (NotDetected) Coronavirus 229E (PCR) Not Detected (NotDetected) SARS-CoV-2 (PCR) Not Detected NEGATIVE (Negative) Coronavirus NL63 (PCR) Not Detected (NotDetected) Human Metapneumovir PCR Not Detected (NotDetected) Influenza Type A (PCR) Not Detected Negative (Neg) Influenza Type B (PCR) Not Detected Negative (Neg) M. pneumoniae (PCR) Not Detected (NotDetected) Parainfluenza 1 (PCR) Not Detected (NotDetected) Parainfluenza 2 (PCR) Not Detected (NotDetected) Parainfluenza 3 (PCR) Not Detected (NotDetected) Parainfluenza 4 (PCR) Not Detected (NotDetected) RSV (RT-PCR) Negative (Neg) RSV (PCR) Not Detected (NotDetected) Entero/Rhino (PCR) Not Detected (NotDetected) 09/23/22 Range/Units 11:50 WBC (4.8-10.8) K/ul RBC (3.93-5.22) M/uL Hgb (12.0-16.0) g/dl Hct (34.1-44.9) % MCV (80.0-100.0) fL MCH (25.0-34.0) pg MCHC (32.0-36.0) g/dL RDW Std Deviation (36.4-46.3) fL RDW Coeff of Michael (11.5-14.5) % Plt Count (130-400) K/uL MPV (9.4-12.3) fL Immature Gran % (Auto) % Neut % (Auto) % Lymph % (Auto) % [place] % (Auto) % Eos % (Auto) % Baso % (Auto) % Neut # (Auto) (1.4-6.5) K/uL Lymph # (Auto) (1.2-3.4) K/uL [place] # (Auto) (0.24-0.82) K/uL Eos # (Auto) (0-0.50) K/uL Baso # (Auto) (0-0.2) K/uL Immature Gran # (Auto) (0.00-0.02) K/uL Sodium (136-145) mmol/L Potassium (3.5-5.1) mmol/L Chloride (98-107) mmol/L Carbon Dioxide (21-32) mmol/L Anion Gap (3-11) BUN (6-23) mg/dl Creatinine (0.6-1.2) mg/dl Est Cr Clr Drug Dosing ml/min Est GFR ( Amer) ml/min Est GFR (Non-Af Amer) ml/min BUN/Creatinine Ratio (10-20) Glucose (70-99(Fasting)) mg/dl Calcium (8.5-10.1) mg/dl Magnesium (1.7-2.4) mg/dl Troponin I High Sens (0-14) pg/ml Procalcitonin < 0.05 (0-0.5) ng/ml Adenovirus (PCR) (NotDetected) B. pertussis DNA (PCR) (NotDetected) B.parapertussis DNA PCR (NotDetected) C. pneumoniae DNA (PCR) (NotDetected) Coronavirus OC43 (PCR) (NotDetected) Coronavirus HKU1 (PCR) (NotDetected) Coronavirus 229E (PCR) (NotDetected) SARS-CoV-2 (PCR) (Negative) Coronavirus NL63 (PCR) (NotDetected) Human Metapneumovir PCR (NotDetected) Influenza Type A (PCR) (Neg) Influenza Type B (PCR) (Neg) M. pneumoniae (PCR) (NotDetected) Parainfluenza 1 (PCR) (NotDetected) Parainfluenza 2 (PCR) (NotDetected) Parainfluenza 3 (PCR) (NotDetected) Parainfluenza 4 (PCR) (NotDetected) RSV (RT-PCR) (Neg) RSV (PCR) (NotDetected) Entero/Rhino (PCR) (NotDetected)
[2022-09-24] MEDS: ADVANCED PROBIOTIC 1250 MG CAPSULE PO SCH (16:39)
[2022-09-24] MEDS: cefTRIAXone SODIUM 2,000 MG in DEXTROSE 5% 50 ML IV SCH (20:07)
[2022-09-24] MEDS: MAGNESIUM OXIDE 400 MG TAB PO SCH (20:08)
[2022-09-24] MEDS ORDERED: POTASSIUM CHLORIDE PWD 20 MEQ PACK PO STA (23:16)
[2022-09-24] MEDS ORDERED: NITROGLYCERIN 60 SPRAYS/4.9 GM SPRAY SL STA (23:18)
[2022-09-24] MEDS ORDERED: METOPROLOL TARTRATE 1 MG/ML VIAL IV STA (23:28)
[2022-09-24] MEDS: MAGNESIUM SULFATE / D5W 1 GM/100 ML BAG IV SCH (23:32)
[2022-09-24] MEDS ORDERED: NITROGLYCERIN SL 0.4 MG/TAB TAB SL STA (23:33)
[2022-09-24] MEDS ORDERED: NITROGLYCERIN SL 0.4 MG/TAB TAB ONE (23:37)
[2022-09-25 00:11] LABS: Partial Thromboplastin Ratio 0.9; Partial Thromboplastin Time 25.4 Seconds (21.0-31.0)
[2022-09-25] MEDS: MAGNESIUM SULFATE / D5W 1 GM/100 ML BAG IV SCH (00:32)
--- NOTE | 2022-09-25 00:53 | Communication Note ---
Date of Service: September 25, 2022 PSVT episode as per RN. Patient complained of chest pain relieved by nitroglycerin. SBP 170 to 180s EKG as per my interpretation Rate 110, sinus tachycardia, normal axis, LVH, septal infarct, T wave abnormalities lateral leads Troponin 17.3 AP Troponin elevation secondary to PSVT, uncontrolled hypertension Rule out ACS, hx CAD as per records Initiate beta-sammy Follow troponin TTE, Cardiology consult RE PSVT, chest pain N.p.o. until patient seen by cardiology in anticipation of ischemic work-up. Will relay to AM provider.
[2022-09-25] MEDS ORDERED: POTASSIUM CHLORIDE PWD 20 MEQ PACK PO ONE (01:00)
[2022-09-25] MEDS ORDERED: METOPROLOL TARTRATE 1 MG/ML VIAL IV STA (01:33)
[2022-09-25] MEDS ORDERED: METOPROLOL TARTRATE 25 MG TAB PO SCH ×2 (01:45→05:15)
[2022-09-25] MEDS: NITROGLYCERIN SL 0.4 MG/TAB TAB SL PRN ×3 (05:22→08:37)
[2022-09-25 05:44] LABS: Hematocrit (blood only) 40.1 % (34.1-44.9); Mean Corpuscular Hemoglobin 31.3 pg (25.0-34.0); Mean Corpuscular Hgb Conc 34.9 g/dL (32.0-36.0); Mean Corpuscular Volume 89.7 fL (80.0-100.0); Mean Platelet Volume 10.6 fL (9.4-12.3); Platelet Count 204 K/uL (130-400); RDW Coefficient of Variation 13.2 % (11.5-14.5); RDW Standard Deviation 43.3 fL (36.4-46.3); Red Blood Count 4.47 M/uL (3.93-5.22); White Blood Count 11.73 K/ul (4.8-10.8)
[2022-09-25 06:03] LABS: Partial Thromboplastin Ratio 0.9; Partial Thromboplastin Time 25.6 Seconds (21.0-31.0)
[2022-09-25 06:10] LABS: Calcium 8.8 mg/dl (8.5-10.1); Creatinine Clr Calc Pharmacy 82.6 ml/min; Est GFR (African American) 105.2 ml/min; Est GFR (Non-African American) 90.8 ml/min; Magnesium 2.3 mg/dl (1.7-2.4); Phosphorus 1.4 mg/dl (2.5-4.9); Potassium 4.1 mmol/L (3.5-5.1)
[2022-09-25] MEDS: amLODIPine BESYLATE 5 MG TAB PO SCH (06:16)
[2022-09-25] MEDS ORDERED: POTASSIUM PHOS 3 MMOL/1 ML INFUSION IV STA (06:20)
[2022-09-25] MEDS ORDERED: POTASSIUM PHOSPHATE 21 MMOL in SODIUM CHLORIDE 0.9% 500 ML IV ONE (06:45)
[2022-09-25] MEDS: ACETAMINOPHEN 325 MG TAB PO PRN (07:50)
[2022-09-25] MEDS: GABAPENTIN 300 MG CAP PO SCH ×2 (07:51→20:33)
[2022-09-25] MEDS ORDERED: SODIUM PHOSPHATE 3 MMOL/1 ML INFUSION IV STA (08:04)
[2022-09-25] MEDS ORDERED: LABETALOL HCL IV 5 MG/ML 20ML IV STA (08:32)
--- NOTE | 2022-09-25 08:34 | XRay Report ---
XR chest 1V portable CLINICAL HISTORY: Atypical chest pain. COMPARISON STUDY: Chest radiograph and chest CT September 23, 2022. FINDINGS: There are median sternotomy wires. Cardiomegaly is unchanged. Mild left basilar opacity is unchanged. There is no pneumothorax. Trace bilateral pleural effusions are present. Interstitial thic kening has developed. IMPRESSION: 1. Interval development of mild interstitial pulmonary edema. 2. Trace bilateral pleural effusions. 3. Persistent mild left basilar opacity. ACT 112: Negative or not required by law. Electronically signed by: Nam Delgado M.D. 09/25/2022 8:32 AM
[2022-09-25] MEDS ORDERED: LABETALOL HCL IV 5 MG/ML 20ML IV ONE ×2 (08:36→08:38)
[2022-09-25] MEDS ORDERED: MoRPHine SULFATE 2 MG/ML CARP IV STA (08:36)
--- NOTE | 2022-09-25 09:09 | Critical Care Consultation ---
Date of Consultation September 25, 2022 Assessment & Plan (1) Atypical chest pain: (2) Hypertensive emergency: (3) Reactive airway disease: (4) Alveolar emphysema of lung: (5) Elevated troponin: (6) Status post thoracic aortic aneurysm repair: (7) Hypoxia: (8) Bronchitis: Plan -- Acute chest pain New in onset Patient has history of thoracic aortic repair Will order CTA chest abdominal pelvis with dissection protocol Keep systolic blood pressure around 120, keep heart rate less than 80 --Bronchitis Continue with flutter valve Await for CT scan to see if there is any signs of pneumonia --Hypertension Continue with blood pressure medication Plan: EKG done in the morning as well as at bedside did not show any ST-T wave changes. Chest x-ray does not show any widening of the mediastinum, hyperinflated film, bilateral lower lobe minimal opacity/atelectasis Echo has been done, needs to be read Patient systolic blood pressure was 197 at the time of examination. She was given 5 labetalol and 2 of Nitropaste as well as 2 mg of morphine. Her SBP went down to 133. Her chest pain did subside. There was no discrepancy between the right and the left arm when measuring the blood pressure Given the history of aortic root repair and dilation of the aortic arch 4.7 cm. CTA chest abdomen pelvis with dissection protocol will be ordered If the CTA is negative for dissection Heparin drip will be started Would recommend to keep the systolic blood pressure less than 140 Case was discussed with Dr. Lang at bedside I have personally spent 52 minutes of critical care time in the direct management of this patient. This is a life/limb threatening event. This includes time spent evaluating patient, direct bedside care, chart review, placing orders, interpretation of diagnostic studies, discussion with consultants, patient, and family members, as well as other required patient management activities. This time is exclusive of all separately billable procedures, and teaching time and separate from and in addition to any other critical care service time. Please note the above document was generated using voice recognition software. It may contain grammatical, syntax or spelling errors. History of Present Illness Attending Physician: Dequan Lang MD History of Present Illness 81-year-old female was admitted the hospital for shortness of breath and bronchitis Past medical history: Ascending aortic repair, dyslipidemia, hypertension, pulmonary emphysema ICU were consulted as patient was complaining of chest pain rating to the back and systolic blood pressure in the 190s to low 200s. At the time of examination as patient systolic blood pressure was 197. She was complaining of pain retrosternal radiating to the back. She was diaphoretic 2 mg of morphine, Nitropaste and 5 mg of labetalol was given. Patient blood pressure went down into systolic 120s. Patient said she felt little better. The chest pain was decreasing in intensity. Both arms were checked for any discrepancy in the blood pressure. There was no significant change in the blood pressure in both arms She denies any nausea or vomiting. No abdominal pain. No headache, no blurry vision Allergies Allergy/AdvReac Type Severity Reaction Status Date / Time azithromycin Allergy Severe throat Verified 04/16/22 10:33 swelling sulfamethoxazole Allergy Intermediate Hives Verified 04/16/22 10:33 trimethoprim Allergy Intermediate Hives Verified 04/16/22 10:33 penicillin V Allergy Mild arm Verified 04/16/22 10:33 swelling with PCN (tolerates oral PCN/Amoxicillin) Bactrim Allergy Unknown Hives Unverified 06/22/17 11:40 Home Medications Medication Instructions Recorded Confirmed Type simvastatin 10 mg tablet 1 tab PO DAILY 07/20/18 09/23/22 History furosemide 20 mg tablet 20 mg PO DAILY PRN swelling 06/03/19 09/23/22 History multivitamin 1 tab PO QAM 06/03/19 09/23/22 History aspirin 325 mg tablet 325 mg PO QAM 09/06/20 09/23/22 History losartan 100 mg tablet 100 mg PO QAM 09/06/20 09/23/22 History amlodipine 2.5 mg tablet 2.5 mg PO DAILY 09/23/22 09/23/22 History buspirone 10 mg tablet 10 mg PO DAILY 09/23/22 09/23/22 History calcium carbonate 600 mg-vitamin 1 tab PO DAILY 09/23/22 09/23/22 History D3 20 mcg (800 unit) chewable tablet (Caltrate 600 plus D) gabapentin 300 mg capsule 300 mg PO BID 09/23/22 09/23/22 History hydrochlorothiazide 25 mg tablet 25 mg PO DAILY 09/23/22 09/23/22 History potassium chloride 10 mEq 10 meq PO AMPM 09/23/22 09/23/22 History capsule,extended release sertraline 100 mg tablet 100 mg PO DAILY 09/23/22 09/23/22 History Patient History Medical History Anxiety Aortic aneurysm s/p repair (2010), follows with [facility] cardio Aortic regurgitation Breast cancer right, XRT in 1986 Chronic back pain Dyslipidemia Hypertension Mild coronary artery disease normal coronary arteries with mild luminal irregularities per 2012 cardiac cath Mitral regurgitation Osteoarthritis Osteoporosis, unspecified Post-traumatic arthritis of ankle Seasonal allergies Surgical History H/O decompression of ulnar nerve right H/O lumbar discectomy with hardware/cage History of appendectomy History of bilateral tubal ligation History of cardiac cath 2011- no stents History of carpal tunnel release right History of cataract surgery bilateral History of colonoscopy History of open reduction and internal fixation (ORIF) procedure wrist 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 History of tonsillectomy Hx of lumpectomy right breast with radiation S/P ankle arthrodesis S/P hardware removal Left wrist Status post open reduction and internal fixation (ORIF) of fracture Left wrist Status post open reduction with internal fixation (ORIF) of fracture of ankle Right ankle ORIF: 06/03/20: Grade view 1, MAC#3, ETT 7 at [facility] Status post thoracic aortic aneurysm repair with a stent (2010) [employer] Family History Mother Heart disease Other No family history of adverse response to anesthesia Social History Smoking Status: Former smoker Second Hand Exposure: No; Hx Alcohol Use: No Hx Substance Use: No Preferred Language: French Communication Ability: Effective Tableau Analyst Required: No Beliefs That Will Affect Care: None marital status: Current Living Situation: Spouse Current Living Situation Comment: , son, & grandson Other Information That Helps Us Care for You: No Feels Safe at Home: Yes Safety Concerns: Feels Safe At This Time Assistive Devices: Cane Assistive Devices Comment: upper dent and glasses Review of Systems Review of Systems: All systems reviewed & are unremarkable except as noted in HPI & below Physical Exam Physical Exam: Constitutional: In distress, diaphoretic HEENT: EOMI, PERRLA Respiratory system: Decreased air entry bilaterally, no wheeze, rhonchi, positive crackles bilateral lower lobe CVS: S1-S2 positive, no murmurs or gallops Abdomen: Soft, nontender, nondistended, positive bowel sounds x4 Extremities: +2 pulses bilaterally radialis/ dorsalis pedis, no cyanosis, no edema Neuro: Awake alert oriented x3 Psych: Normal mood and affect G/U: No Garner Skin: no rashes, warm and dry Lymphatic: no cervical or axillary lymphadenopathy Results & Data Results & Data ([facility]) Vital Signs (Past 12 Hours) Vital Signs Temp Pulse Pulse Resp BP BP BP 09/25/22 08:52 74 20 137/83 09/25/22 08:44 92 H 128/75 09/25/22 08:33 100 H 197/123 H 09/25/22 07:21 36.3 C L 84 18 164/106 H 176/116 H 09/25/22 05:13 80 24 178/103 H 09/25/22 03:07 36.2 C L 83 18 167/92 H 09/25/22 01:36 85 172/97 H 09/25/22 00:48 99 H 22 179/106 H 09/25/22 00:00 70 23 157/76 H 09/24/22 23:50 77 20 174/89 H 09/24/22 23:45 95 H 141/95 H 09/24/22 23:37 97 H 190/115 H 09/24/22 23:31 106 H 176/129 H 09/24/22 22:43 36.3 C L 94 H 18 175/89 H Pulse Ox O2 Del Method O2 Flow Rate 09/25/22 08:52 93 Nasal Cannula 3 09/25/22 08:44 93 Nasal Cannula 2 09/25/22 08:33 09/25/22 07:21 94 Nasal Cannula 2 09/25/22 05:13 96 Nasal Cannula 2 09/25/22 03:07 95 Nasal Cannula 2 09/25/22 01:36 09/25/22 00:48 96 Nasal Cannula 2 09/25/22 00:00 95 Nasal Cannula 2 09/24/22 23:50 94 Nasal Cannula 2 09/24/22 23:45 09/24/22 23:37 09/24/22 23:31 09/24/22 22:43 91 Room Air Laboratory Results 09/25/22 05:27 09/25/22 05:27 Coding Level of Care Code Critical Care 1st 30-74 mins Diagnoses Atypical chest pain R07.89 Hypertensive emergency I16.1 Reactive airway disease J45.909 Alveolar emphysema of lung J43.1 Elevated troponin R77.8 Status post thoracic aortic aneurysm repair Z98.890; Z86.79 Hypoxia R09.02 Bronchitis J40 Time Spent (min) 52
[2022-09-25] MEDS ORDERED: OPTIRAY 320 500ml IV ONE (09:16)
--- NOTE | 2022-09-25 09:18 | Hospitalist Progress Note ---
Date of Service September 25, 2022 Assessment & Plan (1) Bronchitis: Plan: Pt with worsening respiratory symptoms, abnormal lung exam, and new oxygen requirement. CTA negative for PE but question of pneumonia. There is also a question of prior reactive airway disease, and pt is a former smoker. May have underlying COPD but no prior diagnosis. Differential complicated bronchitis vs. pneumonia vs. exacerbation of underlying COPD/RAD. - Admitted to PCU - Continue supplemental O2 - Continue steroids - prednisone 40 mg daily, received IV methylpred in the ED - Empiric antibiotic coverage with ceftriaxone and doxycycline - Check BioFire for possible respiratory pathogen - biofire negative - Checked procalcitonin - negative - PRN Mucinex, flutter valve, incentive spirometry 09/24 Pt is breathing comfortably on room air 09/25 Pt w/ worsening chest pain overnight and again this AM, now radiating to her back stat ECG, CXR obtained, Echo obtained ICU eval at the bedside, cardiology contacted to review echo and further evaluate the pt CTA chest/abd/pelvis dissection protocol obtained - negative for dissection Pt with elevated BP, once BP and pain controlled, pt became much more comfortable Cont. to closely monitor BP Cont. Abx - switched from IV to PO as pt +crackles on phys. exam Given contrast, will need to be cautious w/ lasix Monitor BMP On CTA gallbladder appeared distended - will obtain US Update: Liver US IMPRESSION: 1. Distended gallbladder with cholelithiasis, layering sludge and borderline wall thickening. No pericholecystic fluid is identified. Findings are equivocal for acute cholecystitis. Findings could be correlated with nuclear medicine hepatobiliary scan if of further clinical concern. Will discuss further w/ surgery poss. acute cholecystitis (2) Hypokalemia: Plan: - replete and monitor (3) Hypoxia: (4) Elevated troponin: Plan: Minimally elevated - no acute ischemic changes on EKG. May be secondary to hypoxia in the setting of underlying mild CAD - Trend troponin - Observe on the monitor -Cardiology consulted, as above (5) Hypertension: Plan: - cont. home meds as appropriate - cont. to monitor BP (6) Dyslipidemia: (7) Mild coronary artery disease: Plan Continue other home medications as appropriate Code Status: DNR/DNI DVT Prophylaxis: Lovenox Admission and Anticipated Discharge Date Admission Date: September 23, 2022 Subjective Pt seen in follow up of hypoxia 2/2 bronchitis/ pna Yesterday pt was off oxygen and breathing comfortably on room air Overnight however patient developed more significant substernal chest pain. [employer] Driver was notified, please see his note for further detail. Mild troponin elevation of 20, concern for SVT. Echo was ordered and cardiology was consulted. This morning contacted by nursing staff that patient is having more significant chest pain, and patient is also now complaining of radiation to her back. Patient seen at bedside, confirms the pain radiation to her back, patient is diaphoretic. Blood pressure is elevated at 170s systolic. Echocardiogram was already obtained this morning. Cardiology contacted to assist with read and further management. ICU contacted and evaluated patient with me at the bedside. Stat repeat EKG, and chest x-ray also obtained. Patient's blood pressure was again checked and increased in 190s systolic. Patient was given IV labetalol, nitro paste. Also morphine. Patient became more comfortable and blood pressure controlled, systolic at 120s. CTA chest abdomen pelvis with contrast, dissection protocol was ordered stat. Update: CTA without dissection Abnormal gallbladder - obtain US liver/gallbladder In contact w/ RN throughout the day - pt mostly comfortable, and BP throughout the day controlled critical care time over 30 min Review of Systems Review of Systems: All systems reviewed & are unremarkable except as noted in Subjective Physical Exam Physical Exam: Constitutional:L elderly F , diapho retic, in distress d/t pain Eyes: + anicteric scler ae Neck: supple Respiratory: + bibasilar crack les Cardiovascular:L posit. S1, S2, no LE edema Gastrointestinal ( Abdomen): normal bowel soun ds; abdomen not di stended, + upper a bdomen/lower chest tender, and abdo men soft Musculoskeletal: right ankle with b race in place (chr onic issues) Skin: no jaundice Neurologic: alert, oriented, m oves all extremiti es; no focal motor deficits and not confused Results & Data Results & Data ([facility]) Vital Signs (Past 12 Hours) Vital Signs Temp Pulse Pulse Resp BP BP BP 09/25/22 08:52 74 20 137/83 09/25/22 08:44 92 H 128/75 09/25/22 08:33 100 H 197/123 H 09/25/22 07:21 36.3 C L 84 18 164/106 H 176/116 H 09/25/22 05:13 80 24 178/103 H 09/25/22 03:07 36.2 C L 83 18 167/92 H 09/25/22 01:36 85 172/97 H 09/25/22 00:48 99 H 22 179/106 H 09/25/22 00:00 70 23 157/76 H 09/24/22 23:50 77 20 174/89 H 09/24/22 23:45 95 H 141/95 H 09/24/22 23:37 97 H 190/115 H 09/24/22 23:31 106 H 176/129 H 09/24/22 22:43 36.3 C L 94 H 18 175/89 H Pulse Ox O2 Del Method O2 Flow Rate 09/25/22 08:52 93 Nasal Cannula 3 09/25/22 08:44 93 Nasal Cannula 2 09/25/22 08:33 09/25/22 07:21 94 Nasal Cannula 2 09/25/22 05:13 96 Nasal Cannula 2 09/25/22 03:07 95 Nasal Cannula 2 09/25/22 01:36 09/25/22 00:48 96 Nasal Cannula 2 09/25/22 00:00 95 Nasal Cannula 2 09/24/22 23:50 94 Nasal Cannula 2 09/24/22 23:45 09/24/22 23:37 09/24/22 23:31 09/24/22 22:43 91 Room Air Laboratory Results 09/25/22 09/25/22 09/25/22 Range/Units 07:34 05:27 05:27 WBC (4.8-10.8) K/ul RBC (3.93-5.22) M/uL Hgb (12.0-16.0) g/dl Hct (34.1-44.9) % MCV (80.0-100.0) fL MCH (25.0-34.0) pg MCHC (32.0-36.0) g/dL RDW Std Deviation (36.4-46.3) fL RDW Coeff of Michael (11.5-14.5) % Plt Count (130-400) K/uL MPV (9.4-12.3) fL APTT 25.6 (21.0-31.0) Seconds PTT Ratio 0.9 Sodium (136-145) mmol/L Potassium (3.5-5.1) mmol/L Chloride (98-107) mmol/L Carbon Dioxide (21-32) mmol/L Anion Gap (3-11) BUN (6-23) mg/dl Creatinine (0.6-1.2) mg/dl Est Cr Clr Drug Dosing ml/min Est GFR ( Amer) ml/min Est GFR (Non-Af Amer) ml/min BUN/Creatinine Ratio (10-20) Glucose (70-99(Fasting)) mg/dl Calcium (8.5-10.1) mg/dl Phosphorus (2.5-4.9) mg/dl Magnesium (1.7-2.4) mg/dl Troponin I High Sens 24.7 H 20.3 H (0-14) pg/ml 09/25/22 09/25/22 09/24/22 Range/Units 05:27 05:27 23:35 WBC 11.73 H (4.8-10.8) K/ul RBC 4.47 (3.93-5.22) M/uL Hgb 14.0 (12.0-16.0) g/dl Hct 40.1 (34.1-44.9) % MCV 89.7 (80.0-100.0) fL MCH 31.3 (25.0-34.0) pg MCHC 34.9 (32.0-36.0) g/dL RDW Std Deviation 43.3 (36.4-46.3) fL RDW Coeff of Michael 13.2 (11.5-14.5) % Plt Count 204 (130-400) K/uL MPV 10.6 (9.4-12.3) fL APTT (21.0-31.0) Seconds PTT Ratio Sodium 135 L (136-145) mmol/L Potassium 4.1 D (3.5-5.1) mmol/L Chloride 98 (98-107) mmol/L Carbon Dioxide 31 (21-32) mmol/L Anion Gap 6 (3-11) BUN 15 (6-23) mg/dl Creatinine 0.50 L (0.6-1.2) mg/dl Est Cr Clr Drug Dosing 82.6 ml/min Est GFR ( Amer) 105.2 ml/min Est GFR (Non-Af Amer) 90.8 ml/min BUN/Creatinine Ratio 30.0 H (10-20) Glucose 103 H (70-99(Fasting)) mg/dl Calcium 8.8 (8.5-10.1) mg/dl Phosphorus 1.4 L* D (2.5-4.9) mg/dl Magnesium 2.3 (1.7-2.4) mg/dl Troponin I High Sens 17.3 H D (0-14) pg/ml 09/24/22 Range/Units 23:35 WBC (4.8-10.8) K/ul RBC (3.93-5.22) M/uL Hgb (12.0-16.0) g/dl Hct (34.1-44.9) % MCV (80.0-100.0) fL MCH (25.0-34.0) pg MCHC (32.0-36.0) g/dL RDW Std Deviation (36.4-46.3) fL RDW Coeff of Michael (11.5-14.5) % Plt Count (130-400) K/uL MPV (9.4-12.3) fL APTT 25.4 (21.0-31.0) Seconds PTT Ratio 0.9 Sodium (136-145) mmol/L Potassium (3.5-5.1) mmol/L Chloride (98-107) mmol/L Carbon Dioxide (21-32) mmol/L Anion Gap (3-11) BUN (6-23) mg/dl Creatinine (0.6-1.2) mg/dl Est Cr Clr Drug Dosing ml/min Est GFR ( Amer) ml/min Est GFR (Non-Af Amer) ml/min BUN/Creatinine Ratio (10-20) Glucose (70-99(Fasting)) mg/dl Calcium (8.5-10.1) mg/dl Phosphorus (2.5-4.9) mg/dl Magnesium (1.7-2.4) mg/dl Troponin I High Sens (0-14) pg/ml Medications Administered Current Inpatient Medications Acetaminophen (Acetaminophen 325 Mg Tab) 650 mg PO Q4H PRN PRN Reason: Pain Stop: 10/23/22 17:52 Last Admin: 09/25/22 07:50 Dose: 650 mg Amlodipine Besylate (Amlodipine Besylate 5 Mg Tab) 5 mg PO DAILY JOSE Stop: 10/25/22 05:29 Last Admin: 09/25/22 06:16 Dose: 5 mg Aspirin (Aspirin 325 Mg Ectab) 325 mg PO QAM [facility] Stop: 10/24/22 08:59 Last Admin: 09/24/22 08:28 Dose: 325 mg Buspirone HCl (Buspirone 5 Mg Tab) 10 mg PO DAILY [facility] Stop: 10/24/22 08:59 Last Admin: 09/24/22 08:27 Dose: 10 mg Enoxaparin Sodium (Enoxaparin Inj 40 Mg/0.4 Ml Syr) 40 mg SQ QAM [facility] Stop: 10/24/22 08:59 Last Admin: 09/24/22 08:31 Dose: 40 mg Gabapentin (Gabapentin 300 Mg Cap) 300 mg PO BID [facility] Stop: 10/23/22 20:59 Last Admin: 09/25/22 07:51 Dose: 300 mg Guaifenesin/Dextromethorphan (Guaifenesin/Dextrom Syrup 100mg/10mg 5ml Udc) 5 ml PO Q6H PRN PRN Reason: Cough Stop: 10/23/22 17:50 Last Admin: 09/24/22 08:26 Dose: 5 ml Hydrochlorothiazide (Hydrochlorothiazide 25 Mg Tab) 25 mg PO DAILY [facility] Stop: 10/24/22 08:59 Last Admin: 09/24/22 08:27 Dose: 25 mg Ceftriaxone Sodium 2,000 mg/ (Dextrose) 70 mls @ 100 mls/hr IV Q24H [facility]; Protocol Stop: 09/30/22 17:44 Last Infusion: 09/24/22 21:48 Dose: Infused Doxycycline Hyclate 100 mg/ (Dextrose) 110 mls @ 50 mls/hr IV Q12H [facility] Stop: 09/30/22 17:44 Last Infusion: 09/24/22 22:35 Dose: Infused Famotidine 20 mg/ Syringe 5 mls @ 2.5 mls/min IV BID [facility] Stop: 10/23/22 20:59 Last Admin: 09/24/22 20:07 Dose: 2.5 mls/min Potassium Phosphate 21 mmol/ (Sodium Chloride) 507 mls @ 145 mls/hr IV ONE ONE Stop: 09/25/22 10:14 Last Admin: 09/25/22 06:34 Dose: 145 mls/hr Lactobacillus Acidophilus (Advanced Probiotic 1250 Mg Capsule) 2 cap PO DAILY [facility] Stop: 10/24/22 15:59 Last Admin: 09/24/22 16:39 Dose: 2 cap Lidocaine (Lidocaine 5% 1 Patch) 1 patch TD QAM JOSE Stop: 10/24/22 11:29 Last Admin: 09/24/22 13:35 Dose: 1 patch Losartan Potassium (Losartan Potassium 50 Mg Tab) 100 mg PO QAM [facility] Stop: 10/24/22 08:59 Last Admin: 09/24/22 08:28 Dose: 100 mg Magnesium Oxide (Magnesium Oxide 400 Mg Tab) 400 mg PO BID [facility] Stop: 10/24/22 20:59 Last Admin: 09/24/22 20:08 Dose: 400 mg Metoprolol Tartrate (Metoprolol Tartrate 25 Mg Tab) 25 mg PO BID [facility] Stop: 10/25/22 08:59 Miscellaneous (Remove Lidoderm Patch) 1 each N/A DAILY@2100 [facility] Stop: 10/24/22 20:59 Last Admin: 09/24/22 20:09 Dose: 1 each Multivitamins (Multivitamin Tab) 1 tab PO QAM [facility] Stop: 10/24/22 08:59 Last Admin: 09/24/22 08:30 Dose: 1 tab Nitroglycerin (Nitroglycerin Sl 0.4 Mg/Tab Tab) 0.4 mg SL Q5M PRN PRN Reason: chest pain Stop: 10/25/22 05:13 Last Admin: 09/25/22 08:37 Dose: 0.4 mg Potassium Chloride (Potassium Chloride 10 Meq Tabcr) 10 meq PO BID JOSE Stop: 10/23/22 20:59 Last Admin: 09/24/22 20:16 Dose: 10 meq Prednisone (Prednisone 20 Mg Tab) 40 mg PO QAM [facility] Stop: 10/24/22 08:59 Last Admin: 09/24/22 08:27 Dose: 40 mg Sertraline HCl (Sertraline Hcl 100 Mg Tablet) 100 mg PO DAILY JOSE Stop: 10/24/22 08:59 Last Admin: 09/24/22 08:27 Dose: 100 mg Simvastatin (Simvastatin 10 Mg Tab) 10 mg PO DAILY JOSE Stop: 10/24/22 08:59 Last Admin: 09/24/22 08:28 Dose: 10 mg Tramadol HCl (Tramadol Hcl 50 Mg Tablet) 25 - 50 mg PO Q4H PRN PRN Reason: Pain Stop: 10/23/22 22:46 Last Admin: 09/24/22 23:59 Dose: 25 mg
--- NOTE | 2022-09-25 09:18 | XCELERA ---
[id number]
[2022-09-25] MEDS ORDERED: hydrALAZINE HCL 20 MG/ML VIAL IV ONE (09:41)
[2022-09-25] MEDS: METOPROLOL TARTRATE 25 MG TAB PO SCH ×2 (09:43→20:35)
[2022-09-25] MEDS: guaiFENesin/DEXTROM SYRUP 100MG/10MG 5ML UDC PO PRN (09:43)
[2022-09-25] MEDS: SIMVASTATIN 10 MG TAB PO SCH (09:44)
[2022-09-25] MEDS: MAGNESIUM OXIDE 400 MG TAB PO SCH ×2 (09:44→20:34)
[2022-09-25] MEDS: busPIRone 5 MG TAB PO SCH (09:44)
[2022-09-25] MEDS: ASPIRIN 325 MG ECTAB PO SCH (09:45)
[2022-09-25] MEDS: MULTIVITAMIN TAB PO SCH (09:45)
[2022-09-25] MEDS: ADVANCED PROBIOTIC 1250 MG CAPSULE PO SCH (09:46)
[2022-09-25] MEDS: LOSARTAN POTASSIUM 50 MG TAB PO SCH (09:46)
[2022-09-25] MEDS: SERTRALINE HCL 100 MG TABLET PO SCH (09:46)
[2022-09-25] MEDS: LIDOCAINE 5% 1 PATCH TD SCH (09:47)
[2022-09-25] MEDS: FAMOTIDINE 20 MG in SYRINGE 3 ML IV SCH ×2 (09:51→20:36)
[2022-09-25] MEDS: POTASSIUM CHLORIDE 10 MEQ TABCR PO SCH ×2 (09:54→20:36)
[2022-09-25] MEDS: predniSONE 20 MG TAB PO SCH (09:55)
--- NOTE | 2022-09-25 10:35 | CT Scan Report ---
CHEST CTA for AORTIC DISSECTION, ABDOMEN AND PELVIS CTA FOR AORTIC DISSECTION CT DOSE: 617.95 mGy.cm HISTORY: Shortness of breath. Atypical chest pain. Generalized abdominal pain. r/o dissection TECHNIQUE: Multiaxial CT images of the chest, abdomen, and pelvis were performed both before and afte r the intravenous administration of contrast to evaluate the aorta. Maximal intensity projection imag es were also obtained. A dose lowering technique was utilized adhering to the principles of ALARA. COMPARISON STUDY: Chest CTA 09/23/2022. Abdominal ultrasound 06/22/2017. FINDINGS: Chest CTA: Noncontrast imaging through the chest shows no evidence for an intramural hematoma within the thoracic aorta. Mild chronic anterior wedging at T10. Stable 6 cm sclerotic focus within the T12 vertebral body. There are poststernotomy changes. 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 The graft appears intact. Moderate calcified plaque within the coronary arteries. Mild calc ified plaque within the thoracic aorta. Persistent aneurysmal dilatation of the distal ascending thor acic aorta/proximal aortic arch just beyond the level of the graft repair. This measures up to 4.5 cm in diameter. There is mild aneurysmal dilatation of the distal descending thoracic aorta measuring u p to 3.4 cm in diameter, unchanged. No evidence for an aortic dissection or leak. The heart remains e nlarged. Moderate to severe left coronary artery calcifications are noted. No mediastinal hematoma or lymphadenopathy. No pericardial effusion. Interval development of small bilateral pleural fusions. N ormal esophagus. No pneumothorax. Biapical pleural-parenchymal nodular densities persist. This is non specific but favors scarring. Diffuse bronchial wall thickening with interlobular septal thickening w hich has progressed in the interval. This is consistent with pulmonary edema. Mild emphysema. Patchy groundglass nodular densities within the bilateral lower lobes most pronounced on the left have sligh tly progressed. There are also bilateral lower lobe posterior consolidations. These are nonspecific b ut could represent atelectasis and/or pneumonia. The nodular opacities are concerning for an aspirati on pneumonitis. There is a small amount of mucoid material within the mainstem bronchi. Abdomen/pelvis CTA: No pneumoperitoneum. No pneumatosis. No acute fractures identified. L4-5 posterio r decompression and fusion with pedicle screws and rods. There is severe disc space narrowing at L3-L 4 with grade 1/2 anterolisthesis. This results in severe central canal narrowing at this level. The g allbladder is markedly distended. No gallbladder wall thickening or gallstones identified by CT. The common bile duct is normal in caliber for age. The spleen, pancreas, and right adrenal gland are unre markable. Left adrenal gland thickening is likely age-related. There is a 3 cm left renal cyst. No hy dronephrosis. No retroperitoneal lymphadenopathy. The bladder is unremarkable. No pelvic free fluid. The uterus and bilateral adnexa are within normal limits. The colon is decompressed resulting in subo ptimal evaluation. However, there is no definite bowel wall thickening or obstruction. Moderate calci fied plaque in the ectatic abdominal aorta measuring up to 2.7 cm in diameter. No evidence for an abd ominal aortic aneurysm or dissection. Bilateral common iliac arteries also mildly ectatic. No evidenc e for arterial occlusion. The celiac, superior mesenteric, inferior mesenteric, and bilateral renal a rteries appear patent. IMPRESSION: 1. 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 The graft appears intact. No evidence for an aortic dissection. 2. Persistent aneurysmal dilatation of the proximal aortic arch just beyond the aneurysm repair measu ring 4.5 cm. 3. Ectatic abdominal aorta with no evidence for aneurysm or dissection. 4. Interval progression of the pulmonary edema and small bilateral pleural effusions. 5. Patchy groundglass nodular densities within the lower lobes with associated areas of consolidation . This likely represents a combination of an aspiration pneumonitis and atelectasis. 6. Severely distended gallbladder. No gallstones or gallbladder wall thickening. 7. Additional findings as described above. ACT 112: Negative or not required by law. Electronically signed by: Martin Granados M.D. 09/25/2022 10:33 AM
[2022-09-25] MEDS: ENOXAPARIN INJ 40 MG/0.4 ML SYR SQ SCH (10:59)
[2022-09-25] MEDS: DOXYCYCLINE HYCLATE 100 MG in DEXTROSE 5% 100 ML IV SCH (11:42)
[2022-09-25] MEDS: CEFDINIR 300 MG CAP PO SCH ×2 (12:03→20:32)
--- NOTE | 2022-09-25 12:36 | Cardiology Consultation ---
Date of Consultation September 25, 2022 Assessment & Plan (1) Elevated troponin: Patient has nonanginal sounding chest pain. Her troponins are only slightly above the upper limit of normal and the pattern is flat throughout the past 24 hours. She has no ischemic EKG changes and a previous history of very mild coronary disease. Moreover, her echo does not show regional wall motion abnormality distribution, just mild global hypokinesis. Therefore, these findings are highly suggestive that the patient does not have an acute coronary syndrome. This is likely type II non-ST elevation WI secondary to hypertension and hypoxia. Does not warrant heparin drip or immediate evaluation by coronary angiography. Having said that, at some point I would consider stress testing or definitive evaluation by coronary angiography given reduced EF, worsening mitral regurgitation, and apparently 10 years since last evaluation for ischemia. Since she has known mild coronary disease I do recommend guideline directed medical therapy for secondary prevention to include; low-dose aspirin, high intensity statin therapy, beta-sammy (if tolerated by possible reactive airway disease), and RACHEL inhibitor/ARB. (2) Atypical chest pain: Chest pain is most consistent with pleuritic etiology. She had mild reproducibility but this is more likely because of her fragility. Some evidence of infection so would continue antibiotic therapy. (3) Hypertension: Blood pressure was very elevated. Resolution of chest pain with treatment of blood pressure was noted. She does have residual thoracic aortic aneurysm not large enough for surgical repair. However, it is important that we maintain blood pressure within a normal target. Severely elevated blood pressure can cause chest discomfort by multiple mechanisms. Fortunately, there is no evidence of dissection despite her very elevated blood pressure. Agree with metoprolol, losartan, and amlodipine. If she continues with spikes in her blood pressure would also consider addition of long-acting nitrate which would help not only with blood pressure but also with any microvascular dysfunction in the cardiac myocardium. Okay to hold hydrochlorothiazide at this time. Okay to utilize hydralazine IV as needed for systolic blood pressures above 150 mmHg. (4) Dyslipidemia: Patient is considered high risk. High intensity statin therapy is recommended. She currently takes simvastatin. Combined use of amlodipine and simvastatin is limited to maximum dose of 20 mg given increased risk of rhabdomyolysis. It may be best to change the patient from simvastatin to a atorvastatin or rosuva statin. (5) Mitral regurgitation, acute: Previously reported as moderate on echocardiogram. Now reported as severe. Unclear if this change is secondary to natural progression of valvular heart disease or if there may be some ischemic component (none seen by EKG criteria). Additionally, this may also be secondary to worsening EF. She has mild volume overload at this time by physical exam and chest x-ray. Gentle diuresis with IV furosemide is reasonable with caution given she has received IVP contrast bolus on 2 occasions during this admission. (6) Mild left ventricular systolic dysfunction: Mild with mild global hypokinesis. Unclear etiology. Very mild fluid overload at this time. Beta-sammy and angiotensin receptor sammy should continue. IV Lasix for gentle diuresis. Closely monitor renal function and electrolytes. Ultimately, we will consider ischemia evaluation to exclude this as contributing to systolic dysfunction. Plan Recommend treatment for her hypoxia and likely pneumonia. Continue treatment of her hypertension as outlined above. Preferable for her to undergo outpatient ischemia work-up once she has recovered from her current illness. I will follow while she is hospitalized. History of Present Illness Reason for Consultation: Chest pain, elevated troponin Attending Physician: Dequan Lang MD History of Present Illness This is an 81-year-old female with a history of thoracic aortic aneurysm status post repair in October 2010 using a Vasotec graft for aortic dissection at that time. Additional cardiac history includes valvular heart disease and mild nonocclusive coronary disease. She follows for cardiac issues with Dr Eli whom she last saw in March of this year. Pertinent comorbid disease includes hypertension, dyslipidemia, and prior tobacco use. Patient initially presented with respiratory symptoms and hypoxia. PE was excluded by CTA. She has a history of breast cancer treated with lumpectomy and radiation therapy. CT suggested pneumonia versus bronchitis and she was initiated on antibiotic therapy. She describes onset of sharp left costal margin pain. However, last night she had very elevated blood pressure and her pain worsened. This morning she noted radiation of the pain to her back and then pain all over including in her abdomen. Her high-sensitivity cardiac troponin has been trended throughout her stay and has been mildly elevated. Blood pressure was verbally reported to be over 230 systolic and 135 diastolic. She was given nitroglycerin and a CTA of the chest abdomen and pelvis was performed using the dissection protocol. A stat echocardiogram was also obtained. EKG was performed with chest pain. Patient was provided nitrogly cerin and beta-sammy. Her chest discomfort and hypertension resolved after medications and completion of the CT scan. Currently, patient denies any ongoing chest discomfort. She is resting comfor tably in the bed but is concerned about recurrence of chest discomfort. She also asked about her gallbladder. She asked if it "needs to come out". In discussing her prior cardiac work-up and after I fully reviewed records as far back as we have them it seems that after she had her catheterization in 2011 which demonstrated only minimal coronary disease she has not had any anginal chest pain. She has not had any stress tests or recurrent catheterizations during that time given lack of symptoms. This seems to be her only episode of chest pain. Of note, she has had that chest pain throughout her hospitalization with worsening occurring this morning. She was having dyspnea but now has no dyspnea. She denies syncope, near syncope, orthopnea, PND, racing heartbeat, palpitations, or edema. There was reported "PSVT" but this appears to be sinus tachycardia. CTA chest/abdomen/pelvis from today: No evidence of dissection. Thoracic aortic graft is intact. Aneurysmal dilatation of the thoracic aorta distal to the graft measured approximately 4.5 cm. Ectatic but not aneurysmal abdominal aorta. Significantly enlarged gallbladder. 2D echocardiogram from today: Mildly reduced LVEF of 45 to 50% with mild global hypokinesis. Normal RV size and function. Moderate left atrial enlargement. Mild aortic insufficiency. Mild tricuspid regurgitation. Severe mitral regurgitation noted. Compared to prior the EF is mildly reduced and the mitral regurgitation has worsened from moderate to severe. EKG shows sinus rhythm. There is no ischemic ST or T wave changes. Voltage criteria for mild LVH. Allergies Allergy/AdvReac Type Severity Reaction Status Date / Time azithromycin Allergy Severe throat Verified 04/16/22 10:33 swelling sulfamethoxazole Allergy Intermediate Hives Verified 04/16/22 10:33 trimethoprim Allergy Intermediate Hives Verified 04/16/22 10:33 penicillin V Allergy Mild arm Verified 04/16/22 10:33 swelling with PCN (tolerates oral PCN/Amoxicillin) Bactrim Allergy Unknown Hives Unverified 06/22/17 11:40 Home Medications Medication Instructions Recorded Confirmed Type simvastatin 10 mg tablet 1 tab PO DAILY 07/20/18 09/23/22 History furosemide 20 mg tablet 20 mg PO DAILY PRN swelling 06/03/19 09/23/22 History multivitamin 1 tab PO QAM 06/03/19 09/23/22 History aspirin 325 mg tablet 325 mg PO QAM 09/06/20 09/23/22 History losartan 100 mg tablet 100 mg PO QAM 09/06/20 09/23/22 History amlodipine 2.5 mg tablet 2.5 mg PO DAILY 09/23/22 09/23/22 History buspirone 10 mg tablet 10 mg PO DAILY 09/23/22 09/23/22 History calcium carbonate 600 mg-vitamin 1 tab PO DAILY 09/23/22 09/23/22 History D3 20 mcg (800 unit) chewable tablet (Caltrate 600 plus D) gabapentin 300 mg capsule 300 mg PO BID 09/23/22 09/23/22 History hydrochlorothiazide 25 mg tablet 25 mg PO DAILY 09/23/22 09/23/22 History potassium chloride 10 mEq 10 meq PO AMPM 09/23/22 09/23/22 History capsule,extended release sertraline 100 mg tablet 100 mg PO DAILY 09/23/22 09/23/22 History Patient History Medical History Anxiety Aortic aneurysm s/p repair (2010), follows with [facility] cardio Aortic regurgitation Breast cancer right, XRT in 1986 Chronic back pain Dyslipidemia Hypertension Mild coronary artery disease normal coronary arteries with mild luminal irregularities per 2012 cardiac cath Mitral regurgitation Osteoarthritis Osteoporosis, unspecified Post-traumatic arthritis of ankle Seasonal allergies Surgical History H/O decompression of ulnar nerve right H/O lumbar discectomy with hardware/cage History of appendectomy History of bilateral tubal ligation History of cardiac cath 2011- no stents History of carpal tunnel release right History of cataract surgery bilateral History of colonoscopy History of open reduction and internal fixation (ORIF) procedure wrist 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 History of tonsillectomy Hx of lumpectomy right breast with radiation S/P ankle arthrodesis S/P hardware removal Left wrist Status post open reduction and internal fixation (ORIF) of fracture Left wrist Status post open reduction with internal fixation (ORIF) of fracture of ankle Right ankle ORIF: 06/03/20: Grade view 1, MAC#3, ETT 7 at [facility] Status post thoracic aortic aneurysm repair with a stent (2010) [place] Family History Mother Heart disease Other No family history of adverse response to anesthesia Social History Smoking Status: Former smoker Second Hand Exposure: No; Hx Alcohol Use: No Hx Substance Use: No Preferred Language: Guamanian Communication Ability: Effective Eyelet Cutter Required: No Beliefs That Will Affect Care: None marital status: Current Living Situation: Spouse Current Living Situation Comment: , son, & grandson Other Information That Helps Us Care for You: No Feels Safe at Home: Yes Safety Concerns: Feels Safe At This Time Assistive Devices: Cane Assistive Devices Comment: upper dent and glasses Review of Systems Review of Systems: In addition to above, she has diaphoresis and nausea intermittently. Otherwise negative x12 point review except as per HPI. Physical Exam Constitutional: Awake, alert, oriented pale elderly female. Initially appeared uncomfortable but after medication she is resting comfortably in no distress. Eyes: PERRL, conjunctivae normal, anicteric sclerae ENMT: external ear and nose normal, oropharynx normal Neck: No JVD Respiratory: Bilateral crackles. Left base dullness. Do not appreciate any wheezing or rhonchi. Fair air movement. Cardiovascular: Regular rate and rhythm. 2 out of 6 systolic murmur. S4 gallop. No rubs appreciated. Chest (Breasts): Additional Comments: Mild tenderness to palpation left costal margin Gastrointestinal (Abdomen): Normal active bowel sounds. Musculoskeletal: no cyanosis or clubbing, extremities motor strength 5/5 Neurologic: Cognition is intact. Speech is fluent. No focal deficits. No tremor. Psychiatric: A+Ox3, euthymic affect Results & Data ([facility]) Vital Signs (Past 12 Hours) Vital Signs Temp Pulse Pulse Resp BP BP Pulse Ox 09/25/22 11:46 36.3 C L 59 L 18 116/86 97 09/25/22 05:59 79 09/25/22 09:00 09/25/22 10:38 74 18 136/60 94 09/25/22 08:52 74 20 137/83 93 09/25/22 09:42 77 24 164/97 H 96 09/25/22 08:44 92 H 128/75 93 09/25/22 08:33 100 H 197/123 H 09/25/22 07:21 36.3 C L 84 18 164/106 H 176/116 H 94 09/25/22 05:13 80 24 178/103 H 96 09/25/22 03:07 36.2 C L 83 18 167/92 H 95 09/25/22 01:36 85 172/97 H 09/25/22 00:48 99 H 22 179/106 H 96 O2 Del Method O2 Flow Rate 09/25/22 11:46 Nasal Cannula 2 09/25/22 05:59 09/25/22 09:00 Nasal Cannula 2 09/25/22 10:38 Nasal Cannula 2 09/25/22 08:52 Nasal Cannula 3 09/25/22 09:42 Nasal Cannula 2 09/25/22 08:44 Nasal Cannula 2 09/25/22 08:33 09/25/22 07:21 Nasal Cannula 2 09/25/22 05:13 Nasal Cannula 2 09/25/22 03:07 Nasal Cannula 2 09/25/22 01:36 09/25/22 00:48 Nasal Cannula 2 PG Care Time/CCT Total # of Minutes Spent Total Time Spent with Patient: Total time spent is greater than 50% in coordination of care (as documented) at patient's floor/unit and/or counseling patient: [place] [address] Initial Inpt Care Lvl 3 Patient Type New Diagnoses Elevated troponin R77.8 Atypical chest pain R07.89 Hypertension I10 Dyslipidemia E78.5 Mitral regurgitation, acute I34.0 Mild left ventricular systolic dysfunction I51.89
--- NOTE | 2022-09-25 15:40 | Ultrasound Report ---
US liver HISTORY: 81 years-old Female gallbladder distention acute severe right upper quadrant abdominal pain COMPARISON: CTA abdomen and pelvis of same day TECHNIQUE: Multiple real-time sonographic images of the abdominal right upper quadrant were obtained assessing grayscale appearance and color flow FINDINGS: The visualized pancreas is unremarkable, partially obscured by bowel gas. No hepatic mass identified. Nonspecific mildly increased echogenicity of the portal triads. The common bile duct measures 7 mm. Distended gallbladder with cholelithiasis. Gallbladder wall measures the upper limits of normal at 3 mm. The sonographic Lilly sign was not reported. No significant pericholecystic fluid identified. Right pleural effusion. The imaged right kidney demonstrates no hydronephrosis. IMPRESSION: 1. Distended gallbladder with cholelithiasis, layering sludge and borderline wall thickening. No lacey cholecystic fluid is identified. Findings are equivocal for acute cholecystitis. Findings could be co rrelated with nuclear medicine hepatobiliary scan if of further clinical concern. 2. No biliary ductal dilation identified. ACT 112: Negative or not required by law. The above report was generated using voice recognition software. It may contain grammatical, syntax o r spelling errors. Electronically signed by: Jordin Vela M.D. 09/25/2022 3:39 PM
[2022-09-25] MEDS: MoRPHine SULFATE 2 MG/ML CARP IV PRN ×2 (16:07→21:12)
--- NOTE | 2022-09-25 19:09 | Electrocardiogram Report ---
Test Reason : Blood Pressure : / mmHG Vent. Rate : 110 BPM Atrial Rate : 110 BPM P-R Int : 128 ms QRS Dur : 090 ms QT Int : 356 ms P-R-T Axes : 083 082 -01 degrees QTc Int : 481 ms Sinus tachycardia with Premature atrial complexes Left ventricular hypertrophy with repolarization abnormality Abnormal ECG When compared with ECG of 24-SEP-2022 06:15, Premature atrial complexes are now Present Confirmed by Tuan Ruiz ([id number]) on 09/25/2022 7:09:05 PM Referred By: REFERRED SELF Confirmed By:Ciaran Ruiz
--- NOTE | 2022-09-25 19:11 | Electrocardiogram Report ---
Test Reason : Blood Pressure : / mmHG Vent. Rate : 081 BPM Atrial Rate : 081 BPM P-R Int : 178 ms QRS Dur : 096 ms QT Int : 398 ms P-R-T Axes : 082 083 083 degrees QTc Int : 462 ms Normal sinus rhythm Possible Left atrial enlargement Left ventricular hypertrophy with repolarization abnormality Abnormal ECG When compared with ECG of 24-SEP-2022 23:14, (unconfirmed) Premature atrial complexes are no longer Present Confirmed by Tuan Ruiz ([id number]) on 09/25/2022 7:11:24 PM Referred By: REFERRED SELF Confirmed By:Ciaran Ruiz
--- NOTE | 2022-09-25 20:53 | Electrocardiogram Report ---
Test Reason : Blood Pressure : / mmHG Vent. Rate : 103 BPM Atrial Rate : 103 BPM P-R Int : 162 ms QRS Dur : 092 ms QT Int : 354 ms P-R-T Axes : 074 087 044 degrees QTc Int : 463 ms Poor data quality, interpretation may be adversely affected Sinus tachycardia Left ventricular hypertrophy with repolarization abnormality Abnormal ECG When compared with ECG of 25-SEP-2022 05:21, (unconfirmed) Nonspecific T wave abnormality now evident in Inferior leads Confirmed by Tuan Ruiz ([id number]) on 09/25/2022 8:53:22 PM Referred By: REFERRED SELF Confirmed By:Ciaran Ruiz
[2022-09-25] MEDS ORDERED: XOPENEX/ATROVENT 1.25mg/0.5MG NEB COMBO NEB STA (20:54)
[2022-09-25] MEDS ORDERED: FUROSEMIDE INJ 20 MG/2 ML VIAL IV ONE (20:54)
[2022-09-25] MEDS ORDERED: IPRATROPIUM BROMIDE NEB SOLN 0.02% 2.5 ML VIAL INH STA (20:58)
[2022-09-25] MEDS ORDERED: LEVALBUTEROL 1.25MG/0.5ML NEB INH STA (20:58)
--- NOTE | 2022-09-25 20:58 | Communication Note ---
Date of Service: September 25, 2022 Patient short of breath with audible crackles as per RN. Patient coughing a lot in the last 2 days as per RN. CTA in a.m. showed interval progression of the pulmonary edema and small bilateral pleural effusions. Patchy groundglass nodular densities within the lower lobes with associated areas of consolidation. This likely represents a combination of an aspiration pneumonitis and atelectasis. AP Worsening shortness of breath Multifactorial: CHF Possible aspiration pneumonitis (hx nausea vomiting as per HPI) Lasix 1 dose Change secondary to clindamycin for possible aspiration pneumonitis Will relay to AM provider.
[2022-09-25] MEDS: CLINDAMYCIN/D5W 600 MG/50 ML BAG IV SCH (21:48)
[2022-09-26] MEDS: MoRPHine SULFATE 2 MG/ML CARP IV PRN ×3 (04:03→19:51)
--- NOTE | 2022-09-26 04:40 | Surgery Consultation ---
Date of Consultation September 26, 2022 Assessment & Plan (1) Cholelithiasis: The patient has been admitted on the hospital service and is currently undergoing treatment for possible pneumonia. She is receiving antibiotics in the form of clindamycin as well as steroids in the form of prednisone. At the present time there is no definitive evidence the patient is suffering from acute cholecystitis Consideration can be given to performing a HIDA scan to definitively ascertain if patient does have acute cholecystitis Due to patient's underlying pulmonary and cardiac issues she may not be an ideal surgical candidate and would need medical optimization prior to undergoing any surgical intervention Supervising Physician Co-Signing Physician Notes I personally saw and evaluated the patient with Alexander Hollis PA-C and agree with the assessment and plan. 81-year-old female here with NSTEMI and pneumonia, history of emphysema and severe mitral regurgitation with concern for acute cholecystitis CT and ultrasound images and results personally viewed by myself, she does have a severely distended gallbladder without any inflammation surrounding it The ultrasound did confirm she does have gallstones however no definitive signs of cholecystitis HIDA scan is pending per medical team, will follow up results of this If The HIDA scan is positive recommend cholecystostomy tube placement due to her multiple comorbidities She may also be a good candidate for an outpatient Axios stent with gastroenterology as a definitive drainage procedure for her gallbladder Will follow History of Present Illness Reason for Consultation: Possible cholecystitis Attending Physician: Dequan Lang MD History of Present Illness This is an 81-year-old female who was admitted to [facility] on 09/23/2022 secondary to worsening respiratory status. Since admission the patient has been treated for possible pneumonia with antibiotics and steroids. During her admission she was found to have an elevated troponin. An echocardiogram revealed a 50% ejection fraction and severe mitral regurgitation along with global hypokinesis. She was seen by cardiology where she was diagnosed with a non-ST segment elevation myocardial infarction secondary to hypoxia and hypertension. Is been recommended the patient should undergo stress testing or cardiac catheterization as she has known mild coronary artery disease and has not undergone ischemic evaluation in approximately 10 years. General surgery has been asked to see the patient secondary to possible acute cholecystitis. The patient says that she has known gallstones. Patient says that yesterday she did develop some abdominal pain in the right upper quadrant but was resolved with analgesics that were provided. She did not have any nausea or vomiting. I did asked the patient if she has suffered from postprandial pain and she says that as an outpatient at certain times she does get right upper quadrant abdominal pain with eating certain foods. The patient had numerous labs and imaging since admission to the hospital which independent reviewed. A chest x-ray on 09/23/2022 did not show any evidence of discrete pneumonia. On the same day the patient had a CT angiogram of the chest that did not show any evidence of pulmonary emboli. There is no evidence of aortic dissection. There were mild subpleural bilateral lobe airspace opacities concerning for possible pneumonia. On 09/25/2022 the patient had a repeat chest x-ray that showed interval development of mild pulmonary edema since her admission chest x-ray. Repeat CT scan of the chest was performed on 09/25/2022 that again showed no evidence of aortic dissection. There is progression of pulmonary edema and small bilateral pleural effusions since her first CAT scan. Groundglass nodular densities in the lower lobes were noted concerning for pneumonitis. The patient was noted to have a distended gallbladder on this study without gallstones or gallbladder wall thickening. Therefore a CT scan of the abdomen pelvis was performed that showed a severely distended gallbladder with no gallstones or gallbladder wall thickening. A liver ultrasound was ultimately performed which showed a distended gallbladder with gallstones and layering sludge and borderline gallbladder wall thickening. There is no pericholecystic fluid. This ultrasound was felt to be equivocal for cholecystitis. The patient's labs were reviewed and since admission the patient's most recent CBC from 09/25/2022 her hemoglobin and hematocrit were noted to be normal as was her platelet count. Chemistry profile showed a sodium of 135 with a potassium of 4.1. The patient did have LFTs checked on 09/23/2022 that showed no elevation of bilirubin or transaminases. There is also no elevation of her alkaline phosphatase. Lipase was also not elevated on the study. COVID testing this admission was noted to be negative. At the time of my interview the patient was resting comfortably in bed and she was in no distress. Revealed a white blood cell count 11.7 Allergies Allergy/AdvReac Type Severity Reaction Status Date / Time azithromycin Allergy Severe throat Verified 04/16/22 10:33 swelling sulfamethoxazole Allergy Intermediate Hives Verified 04/16/22 10:33 trimethoprim Allergy Intermediate Hives Verified 04/16/22 10:33 penicillin V Allergy Mild arm Verified 04/16/22 10:33 swelling with PCN (tolerates oral PCN/Amoxicillin) Bactrim Allergy Unknown Hives Unverified 06/22/17 11:40 Home Medications Medication Instructions Recorded Confirmed Type simvastatin 10 mg tablet 1 tab PO DAILY 07/20/18 09/23/22 History furosemide 20 mg tablet 20 mg PO DAILY PRN swelling 06/03/19 09/23/22 History multivitamin 1 tab PO QAM 06/03/19 09/23/22 History aspirin 325 mg tablet 325 mg PO QAM 09/06/20 09/23/22 History losartan 100 mg tablet 100 mg PO QAM 09/06/20 09/23/22 History amlodipine 2.5 mg tablet 2.5 mg PO DAILY 09/23/22 09/23/22 History buspirone 10 mg tablet 10 mg PO DAILY 09/23/22 09/23/22 History calcium carbonate 600 mg-vitamin 1 tab PO DAILY 09/23/22 09/23/22 History D3 20 mcg (800 unit) chewable tablet (Caltrate 600 plus D) gabapentin 300 mg capsule 300 mg PO BID 09/23/22 09/23/22 History hydrochlorothiazide 25 mg tablet 25 mg PO DAILY 09/23/22 09/23/22 History potassium chloride 10 mEq 10 meq PO AMPM 09/23/22 09/23/22 History capsule,extended release sertraline 100 mg tablet 100 mg PO DAILY 09/23/22 09/23/22 History Patient History Medical History Anxiety Aortic aneurysm s/p repair (2010), follows with [facility] cardio Aortic regurgitation Breast cancer right, XRT in 1986 Chronic back pain Dyslipidemia Hypertension Mild coronary artery disease normal coronary arteries with mild luminal irregularities per 2012 cardiac cath Mitral regurgitation Osteoarthritis Osteoporosis, unspecified Post-traumatic arthritis of ankle Seasonal allergies Surgical History H/O decompression of ulnar nerve right H/O lumbar discectomy with hardware/cage History of appendectomy History of bilateral tubal ligation History of cardiac cath 2011- no stents History of carpal tunnel release right History of cataract surgery bilateral History of colonoscopy History of open reduction and internal fixation (ORIF) procedure wrist 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 Status post thoracic aortic aneurysm repair with a stent (2010) CAROLE Loving Family History Mother Heart disease Other No family history of adverse response to anesthesia Social History Smoking Status: Former smoker Second Hand Exposure: No; Hx Alcohol Use: No Hx Substance Use: No Preferred Language: Bulgarian Communication Ability: Effective Tread Builder Required: No Beliefs That Will Affect Care: None marital status: Current Living Situation: Spouse Current Living Situation Comment: , son, & grandson Other Information That Helps Us Care for You: No Feels Safe at Home: Yes Safety Concerns: Feels Safe At This Time Assistive Devices: Cane Assistive Devices Comment: upper dent and glasses Review of Systems Constitutional: no fever and no chills Eyes: + corrective lenses Ear, Nose, Mouth, Throat: no hearing loss Respiratory: + dyspnea Cardiovascular: + chest pain Gastrointestinal: + abdominal pain; no nausea and no vomiting Genitourinary: no dysuria Musculoskeletal: no back pain Integumentary: no rash Neurologic: no localized weakness Physical Exam Constitutional: no acute distress Eyes: + anicteric sclerae Wears glasses ENMT: Ears: no hearing impairment and no external ear abnormality Mouth: no oropharynx abnormality Neck: trachea midline Respiratory: normal respiratory effort; no respiratory distress and no labored breathing Breath sounds are decreased at bases Cardiovascular: Rate/Rhythm: regular rate and regular rhythm Gastrointestinal (Abdomen): Abdomen is soft, nonrigid, nondistended. With deep palpation there is pain in the right upper quadrant but there is no rebound tenderness or guarding. Musculoskeletal: No calf tenderness Skin: no rashes Neurologic: moves all extremities Psychiatric: A+Ox3, euthymic affect Results & Data ([facility]) Vital Signs (Past 12 Hours) Vital Signs Temp Pulse Pulse Pulse Resp BP BP 09/26/22 03:03 36.6 C 74 22 165/71 H 09/26/22 00:00 09/26/22 00:00 67 09/26/22 00:00 09/25/22 23:09 36.4 C L 63 18 121/59 L 09/25/22 21:43 64 144/81 H 09/25/22 21:02 93 H 26 H 09/25/22 21:14 81 168/91 H 09/25/22 21:00 82 196/95 H 09/25/22 18:30 36.5 C 63 18 134/81 Pulse Ox O2 Del Method O2 Flow Rate 09/26/22 03:03 97 Nasal Cannula 3 09/26/22 00:00 Nasal Cannula 1.5 09/26/22 00:00 09/26/22 00:00 Nasal Cannula 3 09/25/22 23:09 90 Nasal Cannula 3 09/25/22 21:43 09/25/22 21:02 97 Nasal Cannula 3 09/25/22 21:14 09/25/22 21:00 09/25/22 18:30 98 Room Air PG Care Time/CCT Total # of Minutes Spent Total Time Spent with Patient: Total time spent is greater than 50% in coordination of care (as documented) at patient's floor/unit and/or counseling patient: Coding Level of Care Code 98313 Inpt Consult Level 5 Diagnoses Cholelithiasis K80.20
[2022-09-26] MEDS: PROMETHAZINE HCL 6.25 MG in SODIUM CHLORIDE 0.9% 50 ML IV PRN (05:07)
[2022-09-26] MEDS: CLINDAMYCIN/D5W 600 MG/50 ML BAG IV SCH ×2 (05:33→14:00)
[2022-09-26 08:21] LABS: Hematocrit (blood only) 38.6 % (34.1-44.9); Hemoglobin 12.7 g/dl (12.0-16.0); Mean Corpuscular Hemoglobin 30.1 pg (25.0-34.0); Mean Corpuscular Hgb Conc 32.9 g/dL (32.0-36.0); Mean Corpuscular Volume 91.5 fL (80.0-100.0); Mean Platelet Volume 11.1 fL (9.4-12.3); Platelet Count 207 K/uL (130-400); RDW Coefficient of Variation 13.3 % (11.5-14.5); RDW Standard Deviation 44.5 fL (36.4-46.3); Red Blood Count 4.22 M/uL (3.93-5.22); White Blood Count 9.35 K/ul (4.8-10.8)
[2022-09-26] MEDS: ASPIRIN 325 MG ECTAB PO SCH (08:26)
[2022-09-26] MEDS: GABAPENTIN 300 MG CAP PO SCH ×2 (08:26→20:25)
[2022-09-26] MEDS: MULTIVITAMIN TAB PO SCH (08:26)
[2022-09-26] MEDS: ATORVASTATIN 40 MG TAB PO SCH (08:26)
[2022-09-26] MEDS: amLODIPine BESYLATE 5 MG TAB PO SCH (08:26)
[2022-09-26] MEDS: METOPROLOL TARTRATE 25 MG TAB PO SCH ×2 (08:27→20:26)
[2022-09-26] MEDS: busPIRone 5 MG TAB PO SCH (08:27)
[2022-09-26] MEDS: LOSARTAN POTASSIUM 50 MG TAB PO SCH (08:27)
[2022-09-26] MEDS: MAGNESIUM OXIDE 400 MG TAB PO SCH (08:27)
[2022-09-26] MEDS: SERTRALINE HCL 100 MG TABLET PO SCH (08:27)
[2022-09-26] MEDS: ADVANCED PROBIOTIC 1250 MG CAPSULE PO SCH (08:28)
[2022-09-26] MEDS: LIDOCAINE 5% 1 PATCH TD SCH (08:28)
[2022-09-26] MEDS: ENOXAPARIN INJ 40 MG/0.4 ML SYR SQ SCH (08:28)
[2022-09-26] MEDS: POTASSIUM CHLORIDE 10 MEQ TABCR PO SCH ×2 (08:32→20:28)
[2022-09-26 08:45] LABS: BUN Creatinine Ratio 44.4 (10-20); Calcium 8.4 mg/dl (8.5-10.1); Creatinine Clr Calc Pharmacy 91.8 ml/min; Est GFR (African American) 108.9 ml/min; Potassium 3.3 mmol/L (3.5-5.1)
[2022-09-26] MEDS ORDERED: POTASSIUM CHLORIDE CRTAB 20 MEQ TABCR PO ONE (09:12)
[2022-09-26 10:06] LABS: Albumin Level 3.5 gm/dl (3.4-5.0); Bilirubin Direct 0.2 mg/dl (0-0.2); Bilirubin,Total 0.7 mg/dl (0.2-1.0); Phosphorus 2.8 mg/dl (2.5-4.9); Total Protein 6.1 gm/dl (6.0-8.3)
[2022-09-26] MEDS ORDERED: SINCALIDE 1.2 MCG in 0.9 % SODIUM CHLORIDE 100 ML IV SCH (10:30)
[2022-09-26] MEDS: FAMOTIDINE 20 MG in SYRINGE 3 ML IV SCH ×2 (12:09→20:28)
--- NOTE | 2022-09-26 14:07 | Nuclear Medicine Report ---
NM hepatobiliary CLINICAL HISTORY: 81 years-old Female with RUQ pain. Acute right upper quadrant abdominal pain TECHNIQUE: Sequential anterior abdominal images were obtained through 105 minutes following the intr avenous administration of 5.4 mCi of technetium-99m Choletec. A lateral image was also obtained. COMPARISON: Ultrasound of the liver 09/25/2022 FINDINGS: There is prompt, uniform accumulation of the tracer by the liver. There is normal filling of the int rahepatic ducts, common bile duct and normal excretion of the tracer into the duodenum. The gallblad nikki was not visualized at 60 minutes, IV morphine was administered. Additional imaging was obtained t hrough 105 minutes. No tracer activity within the gallbladder identified. IMPRESSION: 1. No tracer activity within the gallbladder. Findings are suggestive of cystic duct obstruction/acut e cholecystitis. 2. No scintigraphic evidence of common bile duct obstruction. ACT 112: Negative or not required by law. The above report was generated using voice recognition software. It may contain grammatical, syntax o r spelling errors. Electronically signed by: Jordin Vela M.D. 09/26/2022 2:06 PM
--- NOTE | 2022-09-26 15:07 | Hospitalist Progress Note ---
Date of Service September 26, 2022 Assessment & Plan (1) Bronchitis: (2) Hypokalemia: (3) Hypoxia: (4) Elevated troponin: (5) Hypertension: (6) Dyslipidemia: (7) Mild coronary artery disease: Plan Acute cholecystitis-POA Cystic duct obstruction --CT ABD:Status post repair of an ascending thoracic aortic aneurysm. The graft appears intact. No evidence for an aortic dissection. 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 Ectatic abdominal aorta with no evidence for aneurysm or dissection. Interval progression of the pulmonary edema and small bilateral pleural effusions. Patchy groundglass nodular densities within the lower lobes with associated areas of consolidation. This likely represents a combination of an aspiration pneumonitis and atelectasis. Severely distended gallbladder. No gallstones or gallbladder wall thickening. --Liver USD:Distended gallbladder with cholelithiasis, layering sludge and borderline wall thickening. No pericholecystic fluid is identified. Findings are equivocal for acute cholecystitis. Findings could be correlated with nuclear medicine hepatobiliary scan if of further clinical concern. No biliary ductal dilation identified. --HIDA Scan:No tracer activity within the gallbladder. Findings are suggestive of cystic duct obstruction/acute cholecystitis. No scintigraphic evidence of common bile duct obstruction. --Blood Cultures:pending -- Continue cefepime, Flagyl --Pain control --- Appreciate surgery input --- Given significant comorbidities, patient is thought to be a poor surgical candidate --- Plan to transfer to tertiary care facility for IR intervention if accepted. Acute bronchitis/Pneumonitis Hypoxia Reactive airway disease --Negative Biofire --Chest CTA:Status post repair of an ascending thoracic aortic aneurysm. The graft appears intact. No evidence for an aortic dissection. 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 Ectatic abdominal aorta with no evidence for aneurysm or dissection. 4. Interval progression of the pulmonary edema and small bilateral pleural effusions. Patchy groundglass nodular densities within the lower lobes with associated areas of consolidation. This likely represents a combination of an aspiration pneumonitis and atelectasis. Severely distended gallbladder. No gallstones or gallbladder wall thickening. -- Continue antibiotics as above Appreciate pulmonary care input Continue supplemental oxygen as needed Hypokalemia Hypophosphatemia Replace electrolytes as needed Monitor Hypertensive urgency Elevated troponin thought to be type II WI secondary to hypotension, hypoxia Mitral regurgitation Atypical chest pain --ECHO: Left ventricle systolic function is low normal. Mild global hypokinesis of left ventricle. Mild concentric LVH. Left atrium is moderately dilated. Aortic valve sclerosis mild, without significant aortic valvular stenosis. Mild aortic regurgitation. Severe mitral regurgitation. Right ventricle systolic pressure is normal. Appreciate cardiology input Thought to be less likely ACS Continue amlodipine, metoprolol, losartan Home diuretic on hold Monitor BP Dyslipidemia: On Lipitor coronary artery disease: Continue aspirin, Lipitor Mood disorder On Zoloft, Buspirone DVT Px: Lovenox SQ Code Status: DNR/DNI Admission and Anticipated Discharge Date Admission Date: September 23, 2022 Subjective Patient is seen and examined at bedside States having abdominal pain which worsens with food intake Also reports minimal cough Reports chronic right ankle pain due to multiple surgeries Denies any dyspnea, dizziness, nausea Discussed with surgery Also discussed with patient's son over the phone Review of Systems Review of Systems: All systems reviewed & are unremarkable except as noted in Subjective Physical Exam Physical Exam: Physical Exam: Vitals signs as noted above General Appearance:Thin, Chronic ill appearing, no apparent distress Head: normocephalic, Atraumatic Eyes: normal inspection, EOMI Neck: supple, Trachea midline Respiratory/Chest: Decreased breath sounds, basal crackles, No accessory muscle use Cardiovascular: S1, S2, No murmur Abdomen/GI:Soft, Epigastric, RUQ/LUQ tender, Bowel sounds present Extremities/Musculoskeletal:normal inspection, Trace pedal edema, R ankle splint Neurologic/Psych:AAOX3, grossly no focal neurological deficits Skin: normal color, warm Results & Data Results & Data ([facility]) Vital Signs (Past 12 Hours) Vital Signs Temp Pulse Pulse Pulse Resp BP Pulse Ox 09/26/22 10:20 09/26/22 08:00 75 09/26/22 06:58 36.4 C L 72 16 144/62 H 97 09/26/22 05:58 69 18 154/83 H 96 O2 Del Method O2 Flow Rate 09/26/22 10:20 Nasal Cannula 2 09/26/22 08:00 09/26/22 06:58 Nasal Cannula 09/26/22 05:58 Nasal Cannula 2 Laboratory Results Short CBC 09/26/22 Range/Units 07:21 WBC 9.35 (4.8-10.8) K/ul Hgb 12.7 (12.0-16.0) g/dl Hct 38.6 (34.1-44.9) % Plt Count 207 (130-400) K/uL BMP 09/26/22 07:21 Sodium 136 Potassium 3.3 L Chloride 97 L Carbon Dioxide 34 H BUN 20 Creatinine 0.45 L Glucose 92 Calcium 8.4 L Liver Function 09/26/22 Range/Units 07:21 Total Bilirubin 0.7 (0.2-1.0) mg/dl Direct Bilirubin 0.2 (0-0.2) mg/dl AST 17 (13-39) U/L ALT 19 (7-52) U/L Alkaline Phosphatase 52 (34-104) U/L Albumin 3.5 (3.4-5.0) gm/dl
[2022-09-26] MEDS: metroNIDAZOLE 500 MG/100 ML BAG IV SCH ×2 (16:01→22:44)
[2022-09-26] MEDS: CEFEPIME 2,000 MG in SYRINGE 0 ML IV SCH ×2 (16:01→22:40)
--- NOTE | 2022-09-26 17:23 | Communication Note ---
Date of Service: September 26, 2022 Patient is accepted at [facility] for IR intervention. Discussed with Dr. Reggie Tamez--Triage doctor and also with surgery. Updated patient's son at bedside.
--- NOTE | 2022-09-26 18:10 | Cardiology Progress Note ---
Date of Service September 26, 2022 Assessment & Plan (1) Hypertensive emergency: Plan: Blood pressures are significantly improved with pain control. Continue current medical regimen. Further outpatient titration once discharged. (2) Mild left ventricular systolic dysfunction: Plan: No significant volume overload at this time. Continue current regimen. Follow- up with cardiology after discharge. (3) Elevated troponin: Plan: Not in a pattern consistent with ACS. Likely type II non-ST elevation HI secondary to hypertensive urgency, hypoxia, and acute cholecystitis. She will discuss stress testing after she is discharged with her primary data control clerk supervisor Dr. Michael Eli. Admission and Anticipated Discharge Date Admission Date: September 23, 2022 Subjective Patient without any anginal chest pain. She is asleep at the time of my initial entry into the room. She awakens easily. She has been having epigastric abdominal pain particularly with food. Sent for HIDA scan. This is suggestive of cholecystitis and there is plan for transfer to [facility] for interventional radiology services to address this. Review of Systems 2 Review of Systems: Negative except as per HPI Physical Exam Constitutional: WD/WN, vitals as above (Elderly, frail, chronically ill- appearing) Neck: No JVD Respiratory: Bibasilar crackles. Otherwise clear. Fair air movement. Cardiovascular: Regular rate. Irregular rhythm. In sinus rhythm but there is frequent PACs. Neurologic: Cognition intact. Speech is fluent. No change from prior. Psychiatric: A+Ox3, euthymic affect Results & Data ([facility]) Vital Signs (Past 12 Hours) Vital Signs Temp Pulse Pulse Resp BP Pulse Ox O2 Del Method 09/26/22 15:00 63 09/26/22 15:43 36.6 C 75 18 154/81 H 96 Nasal Cannula 09/26/22 10:20 Nasal Cannula 09/26/22 08:00 75 09/26/22 06:58 36.4 C L 72 16 144/62 H 97 Nasal Cannula O2 Flow Rate 09/26/22 15:00 09/26/22 15:43 2 09/26/22 10:20 2 09/26/22 08:00 09/26/22 06:58 PG Care Time/CCT Total # of Minutes Spent Total Time Spent with Patient: Total time spent is greater than 50% in coordination of care (as documented) at patient's floor/unit and/or counseling patient: Coding Level of Care Code 48367 Subseq Hosp Care Lvl 1 Diagnoses Hypertensive emergency I16.1 Mild left ventricular systolic dysfunction I51.89 Elevated troponin R77.8
[2022-09-27] MEDS ORDERED: amLODIPine BESYLATE 5 MG TAB PO SCH (04:45)
[2022-09-27] MEDS: CEFEPIME 2,000 MG in SYRINGE 0 ML IV SCH ×2 (06:05→15:48)
[2022-09-27] MEDS: metroNIDAZOLE 500 MG/100 ML BAG IV SCH ×2 (06:07→15:48)
[2022-09-27 06:34] LABS: Hematocrit (blood only) 40.2 % (34.1-44.9); Hemoglobin 13.6 g/dl (12.0-16.0); Mean Corpuscular Hemoglobin 30.6 pg (25.0-34.0); Mean Corpuscular Hgb Conc 33.8 g/dL (32.0-36.0); Mean Corpuscular Volume 90.5 fL (80.0-100.0); Mean Platelet Volume 10.4 fL (9.4-12.3); Platelet Count 236 K/uL (130-400); RDW Coefficient of Variation 12.9 % (11.5-14.5); RDW Standard Deviation 42.8 fL (36.4-46.3); Red Blood Count 4.44 M/uL (3.93-5.22); White Blood Count 9.88 K/ul (4.8-10.8)
[2022-09-27 07:03] LABS: Calcium 8.8 mg/dl (8.5-10.1); Creatinine Clr Calc Pharmacy 89.8 ml/min; Est GFR (African American) 108.1 ml/min; Est GFR (Non-African American) 93.3 ml/min; Phosphorus 2.6 mg/dl (2.5-4.9); Potassium 3.5 mmol/L (3.5-5.1)
[2022-09-27] MEDS: MoRPHine SULFATE 2 MG/ML CARP IV PRN ×2 (07:12→18:30)
[2022-09-27] MEDS: FAMOTIDINE 20 MG in SYRINGE 3 ML IV SCH ×2 (08:27→20:01)
[2022-09-27] MEDS: ENOXAPARIN INJ 40 MG/0.4 ML SYR SQ SCH (08:27)
[2022-09-27] MEDS: LIDOCAINE 5% 1 PATCH TD SCH (08:28)
[2022-09-27] MEDS ORDERED: LABETALOL HCL IV 5 MG/ML 20ML IV PRN (08:34)
[2022-09-27] MEDS: PROMETHAZINE HCL 6.25 MG in SODIUM CHLORIDE 0.9% 50 ML IV PRN (08:36)
[2022-09-27] MEDS: ASPIRIN 325 MG ECTAB PO SCH (09:18)
[2022-09-27] MEDS: SERTRALINE HCL 100 MG TABLET PO SCH (09:18)
[2022-09-27] MEDS: MULTIVITAMIN TAB PO SCH (09:18)
[2022-09-27] MEDS: busPIRone 5 MG TAB PO SCH (09:18)
[2022-09-27] MEDS: GABAPENTIN 300 MG CAP PO SCH ×2 (09:18→20:00)
[2022-09-27] MEDS: LOSARTAN POTASSIUM 50 MG TAB PO SCH (09:18)
[2022-09-27] MEDS: METOPROLOL TARTRATE 25 MG TAB PO SCH ×2 (09:18→20:00)
[2022-09-27] MEDS: ATORVASTATIN 40 MG TAB PO SCH (09:18)
[2022-09-27] MEDS: ADVANCED PROBIOTIC 1250 MG CAPSULE PO SCH (09:18)
[2022-09-27] MEDS: POTASSIUM CHLORIDE 10 MEQ TABCR PO SCH ×2 (09:21→20:00)
--- NOTE | 2022-09-27 10:16 | Surgery Progress Note ---
Date of Service September 27, 2022 Assessment & Plan (1) Acute cholecystitis with acute cholangitis: Plan: IV abx will need decompression of GB primary team [place] [facility] Present on Admission?: Yes Admission and Anticipated Discharge Date Admission Date: September 23, 2022 Subjective patient with pain some nausea Review of Systems Constitutional: no fever and no chills Respiratory: no cough and no dyspnea Cardiovascular: no chest pain Gastrointestinal: + abdominal pain and + nausea; no vomiting and no change in bowel habits Genitourinary: no dysuria Musculoskeletal: + back pain Neurologic: + generalized weakness; no localized weakness Psychiatric: no behavioral changes Physical Exam Constitutional: WD/WN, vitals as above Eyes: PERRL, conjunctivae normal, anicteric sclerae ENMT: external ear and nose normal, oropharynx normal Neck: trachea midline Respiratory: normal respiratory effort, lungs clear to auscultation Cardiovascular: RRR, no murmur, no edema Gastrointestinal (Abdomen): Inspection/Auscultation: abdomen normal to inspection, + abdomen distended and normal bowel sounds Percussion/Palpation: + abdomen tender and abdomen soft; no guarding and abdomen not rigid Musculoskeletal: Head/Neck/Chest: normocephalic and head atraumatic Results & Data ([facility]) Vital Signs (Past 12 Hours) Vital Signs Temp Pulse Pulse Resp BP BP Pulse Ox 09/27/22 09:49 09/27/22 07:57 36.3 C L 85 16 172/90 H 94 09/27/22 07:00 800 H 09/27/22 04:14 36.3 C L 77 14 179/90 H 95 09/26/22 22:16 73 09/26/22 23:44 36.4 C L 71 17 158/85 H 96 O2 Del Method O2 Flow Rate 09/27/22 09:49 Nasal Cannula 2 09/27/22 07:57 Nasal Cannula 2 09/27/22 07:00 09/27/22 04:14 Nasal Cannula 2 09/26/22 22:16 09/26/22 23:44 Nasal Cannula 2
--- NOTE | 2022-09-27 16:35 | Hospitalist Progress Note ---
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 The graft appears intact. No evidence for an aortic dissection. 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 Ectatic abdominal aorta with no evidence for aneurysm or dissection. Interval progression of the pulmonary edema and small bilateral pleural effusions. Patchy groundglass nodular densities within the lower lobes with associated areas of consolidation. This likely represents a combination of an aspiration pneumonitis and atelectasis. Severely distended gallbladder. No gallstones or gallbladder wall thickening. --Liver USD:Distended gallbladder with cholelithiasis, layering sludge and borderline wall thickening. No pericholecystic fluid is identified. Findings are equivocal for acute cholecystitis. Findings could be correlated with nuclear medicine hepatobiliary scan if of further clinical concern. No biliary ductal dilation identified. --HIDA Scan:No tracer activity within the gallbladder. Findings are suggestive of cystic duct obstruction/acute cholecystitis. No scintigraphic evidence of common bile duct obstruction. --Blood Cultures:pending -- Continue cefepime, Flagyl --Pain control --- Appreciate surgery input --- Given significant comorbidities, patient is thought to be a poor surgical candidate --Patient needs percutaneous drainage by IR --- Accepted to [facility] in [place] for further management but currently bed unavailable. 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 The graft appears intact. No evidence for an aortic dissection. 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 Ectatic abdominal aorta with no evidence for aneurysm or dissection. 4. Interval progression of the pulmonary edema and small bilateral pleural effusions. Patchy groundglass nodular densities within the lower lobes with associated areas of consolidation. This likely represents a combination of an aspiration pneumonitis and atelectasis. Severely distended gallbladder. No gallstones or gallbladder wall thickening. -- Continue antibiotics as above Appreciate pulmonary care input Saturating well on 2 L supplemental oxygen Hypokalemia Hypophosphatemia Replace electrolytes as needed Monitor Hypertensive urgency Elevated troponin thought to be type II CT secondary to hypotension, hypoxia Mitral regurgitation Atypical chest pain --ECHO: Left ventricle systolic function is low normal. Mild global hypokinesis of left ventricle. Mild concentric LVH. Left atrium is moderately dilated. Aortic valve sclerosis mild, without significant aortic valvular stenosis. Mild aortic regurgitation. Severe mitral regurgitation. Right ventricle systolic pressure is normal. Appreciate cardiology input Thought to be less likely ACS Continue amlodipine, metoprolol, losartan Home diuretic on hold Monitor BP Dyslipidemia: On Lipitor coronary artery disease: Continue aspirin, Lipitor Mood disorder On Zoloft, Buspirone DVT Px: Lovenox SQ Code Status: DNR/DNI Disposition [facility] [place] Admission and Anticipated Discharge Date Admission Date: September 23, 2022 Subjective Patient is seen and examined at bedside Complains of nausea and abdominal pain Less cough today No other complaints Denies any chest pain, dyspnea, dizziness Waiting to be transferred to tertiary care hospital Review of Systems Review of Systems: All systems reviewed & are unremarkable except as noted in Subjective Physical Exam Physical Exam: Physical Exam: Vitals signs as noted above General Appearance:Thin, Chronic ill appearing, no apparent distress Head: normocephalic, Atraumatic Eyes: normal inspection, EOMI Neck: supple, Trachea midline Respiratory/Chest: Decreased breath sounds, basal crackles, No accessory muscle use Cardiovascular: S1, S2, No murmur Abdomen/GI:Soft, Epigastric, RUQ/LUQ tender, Bowel sounds present Extremities/Musculoskeletal:normal inspection, Trace pedal edema, R ankle splint Neurologic/Psych:AAOX3, grossly no focal neurological deficits Skin: normal color, warm Results & Data Results & Data ([facility]) Vital Signs (Past 12 Hours) Vital Signs Temp Pulse Pulse Resp BP Pulse Ox O2 Del Method 09/27/22 15:00 80 09/27/22 15:51 36.5 C 85 18 136/94 93 Nasal Cannula 09/27/22 10:49 36.4 C L 80 18 149/85 H 96 Nasal Cannula 09/27/22 09:49 Nasal Cannula 09/27/22 07:57 36.3 C L 85 16 172/90 H 94 Nasal Cannula 09/27/22 07:00 800 H O2 Flow Rate 09/27/22 15:00 12/03/22 15:51 2 09/27/22 10:49 3 09/27/22 09:49 2 09/27/22 07:57 2 09/27/22 07:00 Laboratory Results Short CBC 09/27/22 Range/Units 06:09 WBC 9.88 (4.8-10.8) K/ul Hgb 13.6 (12.0-16.0) g/dl Hct 40.2 (34.1-44.9) % Plt Count 236 (130-400) K/uL BMP 09/27/22 06:09 Sodium 135 L Potassium 3.5 Chloride 98 Carbon Dioxide 30 BUN 23 Creatinine 0.46 L Glucose 97 Calcium 8.8
--- NOTE | 2022-09-28 15:47 | Discharge Summary ---
Date of Service September 28, 2022 Admission HPI Per Admitting Provider This is an 81 y/o female with a PMH of HTN, prior thoracic aortic aneurysm repair, hx breast cancer, mild CAD, HTN, dyslipidemia, post-traumatic arthritis of right ankle, osteoporosis, former tobacco use and questionable hx of RAD who presented to the ED with progressive respiratory symptoms. She reports that she started with a cough three days ago - non-productive. Then developed associated nausea and vomiting. Not eating or drinking much of anything - tried to eat dinner last night but vomited it back up. Persistent nausea today. Mild SOB over the weekend but now worsening and woke up today around 4 am because couldn't breath so came to the ED for evaluation. Taking Nyquil and Dayquil for symptoms but no relief. Associated WRIGHT, dizziness with position changes. No syncope or falls. No diarrhea. Denies recent sick contacts. Having chills and sweats but didn't check temperature. Associated pain diffusely in chest and abdomen but more severe pain in left lateral chest/under left breast. Had flu vaccine this year, COVID vaccine with 2 boosters. Admission Exam Per Admitting Provider Physical Exam Constitutional: well developed and well nourished; no acute distress Eyes: + anicteric sclerae Neck: trachea midline Respiratory: no respiratory distress and no labored breathing Auscultation: + diminished lung sounds, + rhonchi and + wheezes Cardiovascular: Rate/Rhythm: regular rate and regular rhythm Vessels: radial pulses present Extremities: no pedal edema Gastrointestinal (Abdomen): Inspection/Auscultation: normal bowel sounds; abdomen not distended Percussion/Palpation: + abdomen tender (mild diffuse) and abdomen soft Musculoskeletal: right ankle with brace in place (chronic issues) Skin: no jaundice Neurologic: moves all extremities; no focal motor deficits and not confused Psychiatric: A+Ox3, euthymic affect Principal Diagnosis Acute cholecystitis Cystic duct obstruction Acute bronchitis/Pneumonitis Hypoxia Hypokalemia Hypophosphatemia Hypertensive urgency Cholelithiasis Discharge Data Allergies Allergy/AdvReac Type Severity Reaction Status Date / Time azithromycin Allergy Severe throat Verified 04/16/22 10:33 swelling sulfamethoxazole Allergy Intermediate Hives Verified 04/16/22 10:33 trimethoprim Allergy Intermediate Hives Verified 04/16/22 10:33 penicillin V Allergy Mild arm Verified 04/16/22 10:33 swelling with PCN (tolerates oral PCN/Amoxicillin) Bactrim Allergy Unknown Hives Unverified 06/22/17 11:40 Consultations 09/23/22 15:08 ED Decision to Admit Stat 09/25/22 00:54 Consult Cardiology Routine 09/25/22 22:53 Consult General Surgery Routine 09/26/22 18:37 Burn CD for patient Routine Procedures Performed Laboratory Results WBC 9.88 K/ul (4.8-10.8) 09/27/22 06:09 RBC 4.44 M/uL (3.93-5.22) 09/27/22 06:09 Hgb 13.6 g/dl (12.0-16.0) 09/27/22 06:09 Hct 40.2 % (34.1-44.9) 09/27/22 06:09 MCV 90.5 fL (80.0-100.0) 09/27/22 06:09 MCH 30.6 pg (25.0-34.0) 09/27/22 06:09 MCHC 33.8 g/dL (32.0-36.0) 09/27/22 06:09 RDW Std Deviation 42.8 fL (36.4-46.3) 09/27/22 06:09 RDW Coeff of Michael 12.9 % (11.5-14.5) 09/27/22 06:09 Plt Count 236 K/uL (130-400) 09/27/22 06:09 MPV 10.4 fL (9.4-12.3) 09/27/22 06:09 Immature Gran % (Auto) 0.3 % 09/24/22 05:51 Neut % (Auto) 79.4 % 09/24/22 05:51 Lymph % (Auto) 12.4 % 09/24/22 05:51 [place] % (Auto) 7.8 % 09/24/22 05:51 Eos % (Auto) 0.0 % 09/24/22 05:51 Baso % (Auto) 0.1 % 09/24/22 05:51 Neut # (Auto) 8.75 K/uL (1.4-6.5) H 09/24/22 05:51 Lymph # (Auto) 1.36 K/uL (1.2-3.4) 09/24/22 05:51 [place] # (Auto) 0.86 K/uL (0.24-0.82) H 09/24/22 05:51 Eos # (Auto) 0.00 K/uL (0-0.50) 09/24/22 05:51 Baso # (Auto) 0.01 K/uL (0-0.2) 09/24/22 05:51 Immature Gran # (Auto) 0.03 K/uL (0.00-0.02) H 09/24/22 05:51 APTT 25.6 Seconds (21.0-31.0) 09/25/22 05:27 PTT Ratio 0.9 09/25/22 05:27 Sodium 135 mmol/L (136-145) L 09/27/22 06:09 Potassium 3.5 mmol/L (3.5-5.1) 09/27/22 06:09 Chloride 98 mmol/L (98-107) 09/27/22 06:09 Carbon Dioxide 30 mmol/L (21-32) 09/27/22 06:09 Anion Gap 7 (3-11) 09/27/22 06:09 BUN 23 mg/dl (6-23) 09/27/22 06:09 Creatinine 0.46 mg/dl (0.6-1.2) L 09/27/22 06:09 Est Cr Clr Drug Dosing 89.8 ml/min 09/27/22 06:09 Est GFR ( Amer) 108.1 ml/min 09/27/22 06:09 Est GFR (Non-Af Amer) 93.3 ml/min 09/27/22 06:09 BUN/Creatinine Ratio 50.0 (10-20) H 09/27/22 06:09 Glucose 97 mg/dl (70-99(Fasting)) 09/27/22 06:09 Calcium 8.8 mg/dl (8.5-10.1) 09/27/22 06:09 Phosphorus 2.6 mg/dl (2.5-4.9) 09/27/22 06:09 Magnesium 2.0 mg/dl (1.7-2.4) 09/27/22 06:09 Total Bilirubin 0.7 mg/dl (0.2-1.0) 09/26/22 07:21 Direct Bilirubin 0.2 mg/dl (0-0.2) 09/26/22 07:21 AST 17 U/L (13-39) 09/26/22 07:21 ALT 19 U/L (7-52) 09/26/22 07:21 Alkaline Phosphatase 52 U/L (34-104) 09/26/22 07:21 Troponin I High Sens 24.7 pg/ml (0-14) H 09/25/22 07:34 B-Natriuretic Peptide 149 pg/ml (0-100) H 09/23/22 11:50 Total Protein 6.1 gm/dl (6.0-8.3) 09/26/22 07:21 Albumin 3.5 gm/dl (3.4-5.0) 09/26/22 07:21 Globulin 2.8 gm/dl (2.5-4.0) 09/23/22 11:50 Albumin/Globulin Ratio 1.4 (0.9-2) 09/23/22 11:50 Lipase 14 U/L (11-82) 09/23/22 11:50 Procalcitonin 0.08 ng/ml (0-0.5) 09/27/22 06:09 Adenovirus (PCR) Not Detected (NotDetected) 09/23/22 18:04 B. pertussis DNA (PCR) Not Detected (NotDetected) 09/23/22 18:04 B.parapertussis DNA PCR Not Detected (NotDetected) 09/23/22 18:04 C. pneumoniae DNA (PCR) Not Detected (NotDetected) 09/23/22 18:04 Coronavirus OC43 (PCR) Not Detected (NotDetected) 09/23/22 18:04 Coronavirus HKU1 (PCR) Not Detected (NotDetected) 09/23/22 18:04 Coronavirus 229E (PCR) Not Detected (NotDetected) 09/23/22 18:04 SARS-CoV-2 (PCR) Not Detected (NotDetected) 09/23/22 18:04 Coronavirus NL63 (PCR) Not Detected (NotDetected) 09/23/22 18:04 Human Metapneumovir PCR Not Detected (NotDetected) 09/23/22 18:04 Influenza Type A (PCR) Not Detected (NotDetected) 09/23/22 18:04 Influenza Type B (PCR) Not Detected (NotDetected) 09/23/22 18:04 M. pneumoniae (PCR) Not Detected (NotDetected) 09/23/22 18:04 Parainfluenza 1 (PCR) Not Detected (NotDetected) 09/23/22 18:04 Parainfluenza 2 (PCR) Not Detected (NotDetected) 09/23/22 18:04 Parainfluenza 3 (PCR) Not Detected (NotDetected) 09/23/22 18:04 Parainfluenza 4 (PCR) Not Detected (NotDetected) 09/23/22 18:04 RSV (RT-PCR) Negative (Neg) 09/23/22 12:50 RSV (PCR) Not Detected (NotDetected) 09/23/22 18:04 Entero/Rhino (PCR) Not Detected (NotDetected) 09/23/22 18:04 Impressions Chest X-Ray 09/25/22 07:56 XR chest 1V portable CLINICAL HISTORY: Atypical chest pain. COMPARISON STUDY: Chest radiograph and chest CT September 23, 2022. FINDINGS: There are median sternotomy wires. Cardiomegaly is unchanged. Mild left basilar opacity is unchanged. There is no pneumothorax. Trace bilateral pleural effusions are present. Interstitial thickening has developed. IMPRESSION: 1. Interval development of mild interstitial pulmonary edema. 2. Trace bilateral pleural effusions. 3. Persistent mild left basilar opacity. ACT 112: Negative or not required by law. Electronically signed by: Nam Delgado M.D. 09/25/2022 8:32 AM Chest CTA 09/25/22 08:42 CHEST CTA for AORTIC DISSECTION, ABDOMEN AND PELVIS CTA FOR AORTIC DISSECTION CT DOSE: 617.95 mGy.cm HISTORY: Shortness of breath. Atypical chest pain. Generalized abdominal pain. r/o dissection TECHNIQUE: Multiaxial CT images of the chest, abdomen, and pelvis were performed both before and after the intravenous administration of contrast to evaluate the aorta. Maximal intensity projection images were also obtained. A dose lowering technique was utilized adhering to the principles of ALARA. COMPARISON STUDY: Chest CTA 09/23/2022. Abdominal ultrasound 06/22/2017. FINDINGS: Chest CTA: Noncontrast imaging through the chest shows no evidence for an intramural hematoma within the thoracic aorta. Mild chronic anterior wedging at T10. Stable 6 cm sclerotic focus within the T12 vertebral body. There are poststernotomy changes. 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 The graft appears intact. Moderate calcified plaque within the coronary arteries. Mild calcified plaque within the thoracic aorta. Persistent aneurysmal dilatation of the distal ascending thoracic aorta/proximal aortic arch just beyond the level of the graft repair. This measures up to 4.5 cm in diameter. There is mild aneurysmal dilatation of the distal descending thoracic aorta measuring up to 3.4 cm in diameter, unchanged. No evidence for an aortic dissection or leak. The heart remains enlarged. Moderate to severe left coronary artery calcifications are noted. No mediastinal hematoma or lymphadenopathy. No pericardial effusion. Interval development of small bilateral pleural fusions. Normal esophagus. No pneumothorax. Biapical pleural-parenchymal nodular densities persist. This is nonspecific but favors scarring. Diffuse bronchial wall thickening with interlobular septal thickening which has progressed in the interval. This is consistent with pulmonary edema. Mild emphysema. Patchy groundglass nodular densities within the bilateral lower lobes most pronounced on the left have slightly progressed. There are also bilateral lower lobe posterior consolidations. These are nonspecific but could represent atelectasis and/or pneumonia. The nodular opacities are concerning for an aspiration pneumonitis. There is a small amount of mucoid material within the mainstem br onchi. Abdomen/pelvis CTA: No pneumoperitoneum. No pneumatosis. No acute fractures identified. L4-5 posterior decompression and fusion with pedicle screws and rods. There is severe disc space narrowing at L3-L4 with grade 1/2 anterolisthesis. This results in severe central canal narrowing at this level. The gallbladder is markedly distended. No gallbladder wall thickening or gallstones identified by CT. The common bile duct is normal in caliber for age. The spleen, pancreas, and right adrenal gland are unremarkable. Left adrenal gland thickening is likely age-related. There is a 3 cm left renal cyst. No hydronephrosis. No retroperitoneal lymphadenopathy. The bladder is unremarkable. No pelvic free fluid. The uterus and bilateral adnexa are within normal limits. The colon is decompressed resulting in suboptimal evaluation. However, there is no definite bowel wall thickening or obstruction. Moderate calcified plaque in the ectatic abdominal aorta measuring up to 2.7 cm in diameter. No evidence for an abdominal aortic aneurysm or dissection. Bilateral common iliac arteries also mildly ectatic. No evidence for arterial occlusion. The celiac, superior mesenteric, inferior mesenteric, and bilateral renal arteries appear patent. IMPRESSION: 1. 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 The graft appears intact. No evidence for an aortic dissection. 2. 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 3. Ectatic abdominal aorta with no evidence for aneurysm or dissection. 4. Interval progression of the pulmonary edema and small bilateral pleural effusions. 5. Patchy groundglass nodular densities within the lower lobes with associated areas of consolidation. This likely represents a combination of an aspiration pneumonitis and atelectasis. 6. Severely distended gallbladder. No gallstones or gallbladder wall thickening. 7. Additional findings as described above. ACT 112: Negative or not required by law. Electronically signed by: Martin Granados M.D. 09/25/2022 10:33 AM Abdomen/Pelvis CTA 09/25/22 08:47 CHEST CTA for AORTIC DISSECTION, ABDOMEN AND PELVIS CTA FOR AORTIC DISSECTION CT DOSE: 617.95 mGy.cm HISTORY: Shortness of breath. Atypical chest pain. Generalized abdominal pain. r/o dissection TECHNIQUE: Multiaxial CT images of the chest, abdomen, and pelvis were performed both before and after the intravenous administration of contrast to evaluate the aorta. Maximal intensity projection images were also obtained. A dose lowering technique was utilized adhering to the principles of ALARA. COMPARISON STUDY: Chest CTA 09/23/2022. Abdominal ultrasound 06/22/2017. FINDINGS: Chest CTA: Noncontrast imaging through the chest shows no evidence for an intramural hematoma within the thoracic aorta. Mild chronic anterior wedging at T10. Stable 6 cm sclerotic focus within the T12 vertebral body. There are poststernotomy changes. 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 The graft appears intact. Moderate calcified plaque within the coronary arteries. Mild calcified plaque within the thoracic aorta. Persistent aneurysmal dilatation of the distal ascending thoracic aorta/proximal aortic arch just beyond the level of the graft repair. This measures up to 4.5 cm in diameter. There is mild aneurysmal dilatation of the distal descending thoracic aorta measuring up to 3.4 cm in diameter, unchanged. No evidence for an aortic dissection or leak. The heart remains enlarged. Moderate to severe left coronary artery calcifications are noted. No mediastinal hematoma or lymphadenopathy. No pericardial effusion. Interval development of small bilateral pleural fusions. Normal esophagus. No pneumothorax. Biapical pleural-parenchymal nodular densities persist. This is nonspecific but favors scarring. Diffuse bronchial wall thickening with interlobular septal thickening which has progressed in the interval. This is consistent with pulmonary edema. Mild emphysema. Patchy groundglass nodular densities within the bilateral lower lobes most pronounced on the left have slightly progressed. There are also bilateral lower lobe posterior consolidations. These are nonspecific but could represent atelectasis and/or pneumonia. The nodular opacities are concerning for an aspiration pneumonitis. There is a small amount of mucoid material within the mainstem bronchi. Abdomen/pelvis CTA: No pneumoperitoneum. No pneumatosis. No acute fractures identified. L4-5 posterior decompression and fusion with pedicle screws and rods. There is severe disc space narrowing at L3-L4 with grade 1/2 anterolisthesis. This results in severe central canal narrowing at this level. The gallbladder is markedly distended. No gallbladder wall thickening or gallstones identified by CT. The common bile duct is normal in caliber for age. The spleen, pancreas, and right adrenal gland are unremarkable. Left adrenal gland thickening is likely age-related. There is a 3 cm left renal cyst. No hydronephrosis. No retroperitoneal lymphadenopathy. The bladder is unremarkable. No pelvic free fluid. The uterus and bilateral adnexa are within normal limits. The colon is decompressed resulting in suboptimal evaluation. However, there is no definite bowel wall thickening or obstruction. Moderate calcified plaque in the ectatic abdominal aorta measuring up to 2.7 cm in diameter. No evidence for an abdominal aortic aneurysm or dissection. Bilateral common iliac arteries also mildly ectatic. No evidence for arterial occlusion. The celiac, superior mesenteric, inferior mesenteric, and bilateral renal arteries appear patent. IMPRESSION: 1. 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 The graft appears intact. No evidence for an aortic dissection. 2. 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 3. Ectatic abdominal aorta with no evidence for aneurysm or dissection. 4. Interval progression of the pulmonary edema and small bilateral pleural effusions. 5. Patchy groundglass nodular densities within the lower lobes with associated areas of consolidation. This likely represents a combination of an aspiration pneumonitis and atelectasis. 6. Severely distended gallbladder. No gallstones or gallbladder wall thickening. 7. Additional findings as described above. ACT 112: Negative or not required by law. Electronically signed by: Martin Granados M.D. 09/25/2022 10:33 AM Liver Ultrasound 09/25/22 10:48 US liver HISTORY: 81 years-old Female gallbladder distention acute severe right upper quadrant abdominal pain COMPARISON: CTA abdomen and pelvis of same day TECHNIQUE: Multiple real-time sonographic images of the abdominal right upper quadrant were obtained assessing grayscale appearance and color flow FINDINGS: The visualized pancreas is unremarkable, partially obscured by bowel gas. No hepatic mass identified. Nonspecific mildly increased echogenicity of the portal triads. The common bile duct measures 7 mm. Distended gallbladder with cholelithiasis. Gallbladder wall measures the upper limits of normal at 3 mm. The sonographic Lilly sign was not reported. No significant pericholecystic fluid identified. Right pleural effusion. The imaged right kidney demonstrates no hydronephrosis. IMPRESSION: 1. Distended gallbladder with cholelithiasis, layering sludge and borderline wall thickening. No pericholecystic fluid is identified. Findings are equivocal for acute cholecystitis. Findings could be correlated with nuclear medicine hepatobiliary scan if of further clinical concern. 2. No biliary ductal dilation identified. ACT 112: Negative or not required by law. The above report was generated using voice recognition software. It may contain grammatical, syntax or spelling errors. Electronically signed by: Jordin Vela M.D. 09/25/2022 3:39 PM Hepatobiliary Scan Nuclear Medicine 09/26/22 10:00 NM hepatobiliary CLINICAL HISTORY: 81 years-old Female with RUQ pain. Acute right upper quadrant abdominal pain TECHNIQUE: Sequential anterior abdominal images were obtained through 105 minutes following the intravenous administration of 5.4 mCi of technetium-99m Choletec. A lateral image was also obtained. COMPARISON: Ultrasound of the liver 09/25/2022 FINDINGS: There is prompt, uniform accumulation of the tracer by the liver. There is normal filling of the intrahepatic ducts, common bile duct and normal excretion of the tracer into the duodenum. The gallbladder was not visualized at 60 minutes, IV morphine was administered. Additional imaging was obtained through 105 minutes. No tracer activity within the gallbladder identified. IMPRESSION: 1. No tracer activity within the gallbladder. Findings are suggestive of cystic duct obstruction/acute cholecystitis. 2. No scintigraphic evidence of common bile duct obstruction. ACT 112: Negative or not required by law. The above report was generated using voice recognition software. It may contain grammatical, syntax or spelling errors. Electronically signed by: Jordin Vela M.D. 09/26/2022 2:06 PM Ordered Studies 09/23/22 14:59 CT angio chest PE protocol Stat 09/25/22 08:42 CTA chest dissec wo/w con [CT angio chest dissec wo/w con] Stat 09/25/22 08:47 CTA abdomen pelvis w con [CT angio abdomen pelvis w con] Stat 09/25/22 10:48 US liver Urgent Hospital Course (1) Bronchitis: (2) Hypokalemia: (3) Hypoxia: (4) Elevated troponin: (5) Hypertension: (6) Dyslipidemia: (7) Mild coronary artery disease: Plan Acute cholecystitis-POA Cystic duct obstruction --CT ABD:Status post repair of an ascending thoracic aortic aneurysm. The graft appears intact. No evidence for an aortic dissection. 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 Ectatic abdominal aorta with no evidence for aneurysm or dissection. Interval progression of the pulmonary edema and small bilateral pleural effusions. Patchy groundglass nodular densities within the lower lobes with associated areas of consolidation. This likely represents a combination of an aspiration pneumonitis and atelectasis. Severely distended gallbladder. No gallstones or gallbladder wall thickening. --Liver USD:Distended gallbladder with cholelithiasis, layering sludge and borderline wall thickening. No pericholecystic fluid is identified. Findings are equivocal for acute cholecystitis. Findings could be correlated with nuclear medicine hepatobiliary scan if of further clinical concern. No biliary ductal dilation identified. --HIDA Scan:No tracer activity within the gallbladder. Findings are suggestive of cystic duct obstruction/acute cholecystitis. No scintigraphic evidence of common bile duct obstruction. --Blood Cultures:pending -- Continue cefepime, Flagyl --Pain control --- Appreciate surgery input --- Given significant comorbidities, patient is thought to be a poor surgical candidate --Patient needs percutaneous drainage by IR --- Accepted to [facility] in [place] for further management but currently bed unavailable. 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 The graft appears intact. No evidence for an aortic dissection. 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 Ectatic abdominal aorta with no evidence for aneurysm or dissection. 4. Interval progression of the pulmonary edema and small bilateral pleural effusions. Patchy groundglass nodular densities within the lower lobes with associated areas of consolidation. This likely represents a combination of an aspiration pneumonitis and atelectasis. Severely distended gallbladder. No gallstones or gallbladder wall thickening. -- Continue antibiotics as above Appreciate pulmonary care input Saturating well on 2 L supplemental oxygen Hypokalemia Hypophosphatemia Replace electrolytes as needed Monitor Hypertensive urgency Elevated troponin thought to be type II [place] secondary to hypotension, hypoxia Mitral regurgitation Atypical chest pain --ECHO: Left ventricle systolic function is low normal. Mild global hypokinesis of left ventricle. Mild concentric LVH. Left atrium is moderately dilated. A ortic valve sclerosis mild, without significant aortic valvular stenosis. Mild aortic regurgitation. Severe mitral regurgitation. Right ventricle systolic pressure is normal. Appreciate cardiology input Thought to be less likely ACS Continue amlodipine, metoprolol, losartan Home diuretic on hold Monitor BP Dyslipidemia: On Lipitor coronary artery disease: Continue aspirin, Lipitor Mood disorder On Zoloft, Buspirone DVT Px: Lovenox SQ Code Status: DNR/DNI Disposition [facility] Total Time Total Time Spent Total Time Spent (In Minutes): 54 minutes Discharge Plan Discharge Items Patient Disposition: Transfer Acute Care Hospital Reason For Visit: HYPOXIA Discharge Diagnosis: Acute cholecystitis Cystic duct obstruction Acute bronchitis/Pneumonitis Hypoxia Hypokalemia Hypophosphatemia Hypertensive urgency Cholelithiasis Activity: Per Instructions section Exercise/Sports: Wait until after follow-up appointment Non-emergency contact: Primary Care Provider and Specialist Call non-emergency contact if: you have any medication questions, your symptoms worsen, your pain is concerning for you and you have a fever Follow-up/Referrals: Ramon Quesada DO [Primary Care Provider] - Diet: Heart Healthy Addtl Attending Provider Instructions: Follow-up with Dr. Reggie Tamez/Dr.Deepak Gavin at [facility] for further management Seek immediate medical attention if your symptoms reoccur or worsen Please take all medications as instructed on discharge list below. Please call if you have any questions or problems. You can reach a [facility] hospitalist on duty at [facility] 24 hours a day by calling [phone] Date of Service: September 26, 2022 Current Inpatient Medications Acetaminophen (Acetaminophen 325 Mg Tab) 650 mg PO Q4H PRN PRN Reason: Pain Stop: 10/23/22 17:52 Last Admin: 09/25/22 07:50 Dose: 650 mg Amlodipine Besylate (Amlodipine Besylate 5 Mg Tab) 5 mg PO DAILY [facility] Stop: 10/25/22 05:29 Last Admin: 09/26/22 08:26 Dose: 5 mg Aspirin (Aspirin 325 Mg Ectab) 325 mg PO QAM [facility] Stop: 10/24/22 08:59 Last Admin: 09/26/22 08:26 Dose: 325 mg Atorvastatin Calcium (Atorvastatin 40 Mg Tab) 40 mg PO QAM [facility] Stop: 10/26/22 08:59 Last Admin: 09/26/22 08:26 Dose: 40 mg Buspirone HCl (Buspirone 5 Mg Tab) 10 mg PO DAILY [facility] Stop: 10/24/22 08:59 Last Admin: 09/26/22 08:27 Dose: 10 mg Enoxaparin Sodium (Enoxaparin Inj 40 Mg/0.4 Ml Syr) 40 mg SQ QAM [facility] Stop: 10/24/22 08:59 Last Admin: 09/26/22 08:28 Dose: 40 mg Gabapentin (Gabapentin 300 Mg Cap) 300 mg PO BID [facility] Stop: 10/23/22 20:59 Last Admin: 09/26/22 08:26 Dose: 300 mg Guaifenesin/Dextromethorphan (Guaifenesin/Dextrom Syrup 100mg/10mg 5ml Udc) 5 ml PO Q6H PRN PRN Reason: Cough Stop: 10/23/22 17:50 Last Admin: 09/25/22 09:43 Dose: 5 ml Famotidine 20 mg/ Syringe 5 mls @ 2.5 mls/min IV BID JOSE Stop: 10/23/22 20:59 Last Admin: 09/26/22 12:09 Dose: 2.5 mls/min Promethazine HCl 6.25 mg/ (Sodium Chloride) 50.25 mls @ 201 mls/hr IV Q6H PRN PRN Reason: Nausea And Vomiting Stop: 10/26/22 04:33 Last Infusion: 09/26/22 05:33 Dose: Infused Cefepime HCl 2,000 mg/ Syringe 20 mls @ 5 mls/min IV Q8H [facility]; Protocol Stop: 10/06/22 14:59 Last Admin: 09/26/22 16:01 Dose: 5 mls/min Metronidazole (Flagyl) 500 mg in 100 mls @ 100 mls/hr IV Q8H [facility] Stop: 10/06/22 14:59 Last Infusion: 09/26/22 17:09 Dose: Infused Lactobacillus Acidophilus (Advanced Probiotic 1250 Mg Capsule) 2 cap PO DAILY [facility] Stop: 10/24/22 15:59 Last Admin: 09/26/22 08:28 Dose: 2 cap Lidocaine (Lidocaine 5% 1 Patch) 1 patch TD [facility] Stop: 10/24/22 11:29 Last Admin: 09/26/22 08:28 Dose: Not Given Losartan Potassium (Losartan Potassium 50 Mg Tab) [facility]: 10/24/22 08:59 Last Admin: 09/26/22 08:27 Dose: 100 mg Metoprolol Tartrate (Metoprolol Tartrate 25 Mg Tab) 25 mg PO BID [facility] Stop: 10/25/22 08:59 Last Admin: 09/26/22 08:27 Dose: 25 mg Miscellaneous (Remove Lidoderm Patch) 1 each N/A DAILY@2100 [facility] Stop: 10/24/22 20:59 Last Admin: 09/25/22 20:35 Dose: Not Given Morphine Sulfate (Morphine Sulfate 2 Mg/Ml Carp) 2 mg IV Q3H PRN PRN Reason: Pain Stop: 10/09/22 10:48 Last Admin: 09/26/22 11:30 Dose: 2 mg Multivitamins (Multivitamin Tab) 1 tab PO QAM [facility] Stop: 10/24/22 08:59 Last Admin: 09/26/22 08:26 Dose: 1 tab Nitroglycerin (Nitroglycerin Sl 0.4 Mg/Tab Tab) 0.4 mg SL Q5M PRN PRN Reason: chest pain Stop: 10/25/22 05:13 Last Admin: 09/25/22 08:37 Dose: 0.4 mg Potassium Chloride (Potassium Chloride 10 Meq Tabcr) 10 meq PO BID [facility] Stop: 10/23/22 20:59 Last Admin: 09/26/22 08:32 Dose: 10 meq Prednisone (Prednisone 20 Mg Tab) 40 mg PO QAM [facility] Stop: 10/24/22 08:59 Last Admin: 09/25/22 09:55 Dose: Not Given Sertraline HCl (Sertraline Hcl 100 Mg Tablet) 100 mg PO DAILY [facility] Stop: 10/24/22 08:59 Last Admin: 09/26/22 08:27 Dose: 100 mg Tramadol HCl (Tramadol Hcl 50 Mg Tablet) 25 - 50 mg PO Q4H PRN PRN Reason: Pain Stop: 10/23/22 22:46 Last Admin: 09/24/22 23:59 Dose: 25 mg Pending Studies at Discharge: Yes Studies:: Blood cultures Stand-Alone Forms: Replaced By [facility] Skilled Items Patient informed of condition?: Yes DNR: Yes Discharge Level of Care: Other Communicable Disease: No Discharge Prognosis: Stable Lines: Peripheral IV Urinary Catheter: No Medications and DC Order Prescriptions: Continued multivitamin Tablet 1 tab PO QAM furosemide 20 mg tablet 20 mg PO DAILY PRN (Reason: swelling) aspirin 325 mg tablet 325 mg PO QAM losartan 100 mg tablet 100 mg PO QAM simvastatin 10 mg tablet 1 tab PO DAILY potassium chloride 10 mEq capsule, extended release 10 meq PO AMPM Caltrate 600 plus D 600 mg-20 mcg (800 unit) Tablet,Chewable 1 tab PO DAILY sertraline 100 mg Tablet 100 mg PO DAILY amlodipine 2.5 mg tablet 2.5 mg PO DAILY buspirone 10 mg tablet 10 mg PO DAILY gabapentin 300 mg capsule 300 mg PO BID hydrochlorothiazide 25 mg tablet 25 mg PO DAILY Discharge Orders: Discharge Order (Routine); Ordered 09/27/22 Ordered By: Jamil Tello Admission Data Admit Date/Time: 09/23/22 14:55 Attending Provider: Jamil Tello Admit Provider: Dequan Lang Primary Care Provider: Ramon Quesada Other Providers: Dequan Lang ; Jcarlos Ashby ; Lj Arteaga ; Max Jane ; Gerard Quiroga ; Yinka Thorpe ; Michael Eli Jr ; Danny Lee ; Cynthia Motley ; Any Bazan ; Jair Mayorga ; Tuan Ruiz ; Rayray Joshua ; Kim Billings ; Tati Brown ; Collin Lepe ; Smith Moore ; Blair Pereyra ; Gerard Thayer V. ; Michele Ruiz
--- NOTE | 2022-10-06 15:05 | Coding Query ---
CODING QUERY To promote full compliance with coding requirements relating to patient care, provider participation is requested in all cases of retail brand ambassador uncertainty. Please assist us with the question(s) below: Coding Question(s): Please specify below, in your clinical opinion, the diagnosis most responsible for occasioning the inpatient admission: ( ) Hypoxia. 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 (x ) Acute Cholecystitis ( ) Other: Please Specify Physician's Response(s): Thank you Helga Pak Principal Diagnosis: "that condition established after study, to be chiefly responsible for occasioning the admission of the patient to the hospital for care." Co-Existing Principal Diagnosis: "when two or more diagnoses equally meet the criteria for principal diagnosis as determined by the circumstances of admission, diagnostic work up, and/or therapy provided, and the Alphabetic Index, Tabular List, or another coding guideline does not provide sequencing direction, any one of the diagnoses may be sequenced first." "When the physician has documented what appears to be a current diagnosis in the body of the record, but has not included the diagnosis in the final diagnostic statement, the physician should be asked whether the diagnosis should be added." ([facility] 2 QTR90. p3-4) [place]
== END 2022-09-27 20:10 | disposition short-term general hospital (02) | DRG 177 ==
LOC: ED 11:24 → SUATTDRO 14:55 → EDINP 14:55 → 2E 20:11

== ENCOUNTER 2024-03-15 13:34 | Inpatient (IN) ==
[2024-03-15 14:27] LABS: Basophils % (auto) 1.1 %; Eosinophils # (auto) 0.08 K/uL (0.00-0.50); Eosinophils % (auto) 0.9 %; Hematocrit (blood only) 37.7 % (37.0-47.0); Hemoglobin 12.4 g/dl (12.0-16.0); Immature Granulocytes # (auto) 0.04 K/uL (0.01-0.20); Immature Granulocytes % (auto) 0.4 %; Lymphocytes # (auto) 1.89 K/uL (1.20-3.40); Lymphocytes % (auto) 20.5 %; Mean Corpuscular Hemoglobin 31.1 pg (25.0-34.0); Mean Corpuscular Hgb Conc 32.9 g/dL (32.0-36.0); Mean Corpuscular Volume 94.5 fL (80.0-100.0); Mean Platelet Volume 9.9 fL (9.4-12.4); Monocytes % (auto) 11.9 %; Neutrophils # (auto) 6.01 K/uL (1.40-6.50); Neutrophils % (auto) 65.2 %; Platelet Count 248 K/uL (130-400); RDW Coefficient of Variation 13.4 % (11.5-14.5); RDW Standard Deviation 46.5 fL (36.4-46.3); Red Blood Count 3.99 M/uL (4.20-5.40); White Blood Count 9.22 K/ul (4.8-10.8)
[2024-03-15 14:41] LABS: Albumin Globulin Ratio 1.3 (0.9-2); Albumin Level 3.9 gm/dl (3.4-5.0); BUN Creatinine Ratio 24.7 (10-20); Bilirubin,Total 0.5 mg/dl (0.2-1.0); Calcium 9.2 mg/dl (8.6-10.3); Creatinine Clr Calc Pharmacy 25.9 ml/min; Est GFR (African American) 35.8 ml/min; Est GFR (Non-African American) 30.9 ml/min; Globulin 2.9 gm/dl (2.5-4.0); Potassium 2.9 mmol/L (3.5-5.1); Total Protein 6.8 gm/dl (6.0-8.3)
--- NOTE | 2024-03-15 14:44 | XRay Report ---
XR chest 1V portable CLINICAL HISTORY: Dyspnea COMPARISON STUDY: Chest radiograph and chest CT September 25, 2022. FINDINGS: Status post median sternotomy. Mild cardiomegaly is unchanged. Asymmetric right hilar mass- like enlargement is present. Left hilum is normal. There is a trace right pleural effusion. No pneumo thorax is present. Pulmonary vascular congestion. Left basilar opacity similar to prior exam and favo rs atelectasis. IMPRESSION: 1. Asymmetric right hilar mass-like enlargement. Although this could be due to pulmonary vessels, a m ass or lymphadenopathy cannot be excluded. Chest CT with contrast is recommended. 2. Cardiomegaly with pulmonary vascular congestion. Trace right pleural effusion. 3. Left basilar opacity which likely reflects atelectasis. ACT 112: Positive. There are findings on this exam that require communication between the performing entity and the patient following Patient Test Result Information Act ([place] Act 112) guidelines. Electronically signed by: Nam Delgado M.D. 03/15/2024 2:42 PM
[2024-03-15 15:07] LABS: D Dimer 880 ug/L FEU (0-500)
[2024-03-15 15:23] LABS: Adenovirus PCR Not Detected (NotDetected); Bordetella parapertussis PCR Not Detected (NotDetected); Bordetella pertussis PCR Not Detected (NotDetected); Chlamydia pneumoniae PCR Not Detected (NotDetected); Coronavirus 229E PCR Not Detected (NotDetected); Coronavirus CoV-2 (COVID19)PCR Not Detected (NotDetected); Coronavirus HKU1 PCR Not Detected (NotDetected); Coronavirus NL63 PCR Not Detected (NotDetected); Coronavirus OC43PCR Not Detected (NotDetected); Human Metapneumovirus PCR Not Detected (NotDetected); Influenza A PCR Not Detected (NotDetected); Influenza B PCR Not Detected (NotDetected); Mycoplasma pneumoniae PCR Not Detected (NotDetected); Parainfluenza Virus 1 PCR Not Detected (NotDetected); Parainfluenza Virus 2 PCR Not Detected (NotDetected); Parainfluenza Virus 3 PCR Not Detected (NotDetected); Parainfluenza Virus 4 PCR Not Detected (NotDetected); Respiratory Syncytial VirusPCR Not Detected (NotDetected); Rhinovirus/Enterovirus PCR Not Detected (NotDetected)
--- NOTE | 2024-03-15 15:26 | Emergency Department Note ---
Impression & Plan Acute hypoxic respiratory failure, SVC obstruction, Suspected malignant neoplasm of lung, Myoclonic jerking ED Provider Note NAME: APRIL ELIZABETH AGE: 83 SEX: F : 1940 ARRIVES VIA: Ambulance INFORMANT: Patient, ED PROVIDER(S): Ty Arenas MD CHIEF COMPLAINT: Shortness of breath HPI: This is an 83-year-old female presenting for shortness of breath and shaking. Patient is that she has had body twitches for the past few weeks over that worse on the past few days. She notes no shortness of breath. She states that she recently had nausea, vomiting and diarrhea. She states she feels anxious. She otherwise is limited historian. She was found to be hypoxic 86% on room air, improved to 96% on 2 L nasal cannula. She does not like short of breath, does not have any chest pain or current pleurisy. No leg swelling but did forget to take her ROS: See above HPI for pertinent positives & negatives. A total of 10 systems reviewed and were otherwise negative. PHYSICAL EXAMINATION: General: resting comfortably in no acute distress Head: Normocephalic and atraumatic Eyes: Normal inspection, extraocular muscles intact Ear, nose, throat: Normal external exam Neck: Normal range of motion Respiratory: lungs clear to auscultation bilaterally Cardiovascular: Regular rate/rhythm, no murmur GI: soft, nontender, no guarding or rebound Extremities: nontender, moves all extremities Neuro: The patient awake and alert, appropriately conversive, no focal deficits, symmetric faces, intermittent twitching episode Skin: Warm, dry, and intact MEDICAL DECISION MAKING: This is a 89-year-old female presenting for posterior breast/aching. Patient is hypoxic to 86% on room air. I did confirm this at removing oxygen she dropped down to about 87. She notes feeling anxious today as well as having some diarrhea. -Consider ACS, PE, pneumonia, viral upper respite infection -Will order D-dimer, blood work, chest x-ray and EKG -ECG independently interpreted by me with normal sinus rhythm, rate of 74, normal MA, normal QRS, normal QTc, no ST segment elevations consistent with STEMI criteria, T wave version in the anterior leads -Chest x-ray as read by radiology reveals a large right hilar mass with left pleural effusion and cardiomegaly -D-dimer is elevated at this time in the setting CTA for PE rule out. -CTA reveals no signs of pulmonary also but does reveal a large 10 x 8 cm mass in the right hilum with lymphadenopathy as well as metastatic disease. Otherwise this mass is causing SVC narrowing without obstruction -Pleural effusion Cytosis, no anemia. Slight hypokalemia, hypochloremia and elevated creatinine 1.54. -Family is aware of this new lung mass diagnosis and need for admission at this time -Due to hypoxia, new lung mass, SVC narrowing will require admission at this time -Discussed care with Dr. Vivas who will see the patient for admission Differential diagnosis: See above ER treatment provided: See below Diagnostics interpreted by me: ECG: See above Cardiac Monitoring: An order was placed for continuous cardiac monitoring. The monitor shows a rate of 81 with sinus rhythm. Laboratory studies: As stated above and show below. Imaging studies: See below. Past Med/Surg History Problem List (Updated 03/15/24 @ 22:15 by Ty Arenas MD) Postobstructive pneumonia Myoclonic jerking (Acute) Suspected malignant neoplasm of lung (Acute) Acute kidney injury Lymphadenopathy, mediastinal SVC obstruction (Acute) Paroxysmal atrial fibrillation Acute hypoxic respiratory failure (Acute) Hypokalemia (Acute) Atypical chest pain Mild right ventricular systolic dysfunction Medical History (Updated 03/15/24 @ 22:15 by Ty Arenas MD) Abdominal aortic ectasia Severe mitral regurgitation Moderate left ventricular systolic dysfunction Alveolar emphysema of lung Hypertension Dyslipidemia Mild coronary artery disease normal coronary arteries with mild luminal irregularities per 2011 cardiac cath Moderate to severe mitral regurgitation Severe per 11/2022 ECHO Seasonal allergies Anxiety Chronic back pain Breast cancer right, XRT in 1986 Aortic aneurysm s/p repair (2010), [place] [facility] [place]osis, unspecified Post-traumatic arthritis of ankle Surgical History (Updated 03/15/24 @ 18:17 by Thai Gray DO) 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 Status post open reduction with internal fixation (ORIF) of fracture of ankle Right ankle ORIF: 06/03/20: Grade view 1, MAC#3, ETT 7 at [facility] Status post thoracic aortic aneurysm repair with a stent + "blow out patch" (2010) [facility] History of cardioversion 10/2022 [facility] S/P ankle arthrodesis H/O decompression of ulnar nerve right History of carpal tunnel release right and left History of cataract surgery bilateral History of tonsillectomy History of appendectomy History of colonoscopy Hx of lumpectomy right breast with radiation History of bilateral tubal ligation H/O lumbar discectomy with hardware/cage S/P hardware removal Left wrist Status post open reduction and internal fixation (ORIF) of fracture Left wrist History of cardiac cath 2011- , no stents; f/u meño allred History of open reduction and internal fixation (ORIF) procedure left wrist Family History Mother Heart disease Other No family history of adverse response to anesthesia Social History Smoking Status: Former smoker Tobacco Type: Cigarettes Cigarettes Per Day: QUIT >12 YRS AGO; Second Hand Exposure: No; Do You Dip or Chew Tobacco: No; Hx Alcohol Use: No Hx Substance Use: No Preferred Language: Thai Communication Ability: Effective 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 Beliefs That Will Affect Care: None marital status: / Current Living Situation: Family Current Living Situation Comment: son, & grandson Feels Safe at Home: Yes Assistive Devices: Denture - Upper and Glasses Allergies Allergies Allergy/AdvReac Type Severity Reaction Status Date / Time azithromycin Allergy Severe throat Verified 03/15/24 16:38 swelling sulfamethoxazole Allergy Intermediate Hives Verified 03/15/24 16:38 trimethoprim Allergy Intermediate Hives Verified 03/15/24 16:38 penicillin V Allergy Mild arm Verified 03/15/24 16:38 swelling with PCN (tolerates oral PCN/Amoxicillin) Home Meds Home Medications Medication Instructions Recorded Confirmed multivitamin 1 tab PO QAM 06/03/19 03/15/24 amlodipine 2.5 mg tablet 2.5 mg PO QAM 09/23/22 03/15/24 buspirone 10 mg tablet 10 mg PO HS 09/23/22 03/15/24 calcium carbonate 600 mg-vitamin 1 tab PO HS 09/23/22 03/15/24 D3 20 mcg (800 unit) chewable tablet (Caltrate 600 plus D) aspirin 81 mg tablet,delayed 81 mg PO QAM 11/13/22 03/15/24 release (Adult Low Dose Aspirin) bumetanide 2 mg tablet 3 mg PO DAILY 03/15/24 03/15/24 gabapentin 300 mg capsule 300 mg PO BID 03/15/24 03/15/24 losartan 100 mg tablet 100 mg PO HS 03/15/24 03/15/24 potassium chloride 10 mEq 10 meq PO BID 03/15/24 03/15/24 capsule,extended release Previous Rx's Medication Instructions Recorded apixaban 5 mg tablet 5 mg PO BID #180 tabs 11/02/22 albuterol sulfate 90 mcg/actuation 2 puff inhalation QID PRN 01/01/23 aerosol inhaler shortness of breath or wheezing #8.5 grams metoprolol tartrate 50 mg tablet 50 mg PO BID #180 tabs 09/05/23 amiodarone 200 mg tablet 200 mg PO DAILY #90 tabs 02/08/24 Results & Data (ED) Vital Signs Vital Signs - 24 hr 03/15/24 13:45 03/15/24 13:45 03/15/24 13:57 Temperature 36.6 C Temperature Source Oral Pulse Rate 78 76 Pulse Rate [Apical] Respiratory Rate 20 Respiratory Effort / Characteristics Spontaneous Respiratory Depth Normal Respiratory Pattern Regular Blood Pressure 125/78 Blood Pressure [Right Arm] Blood Pressure Mean 93 Blood Pressure Mean [Right Arm] Pulse Oximetry 86 L 86 L Oxygen Delivery Method Room Air Room Air Room Air Oxygen Flow Rate Sepsis Recent Fever Within 48 Hours No Sepsis New/Unexplained Change in Mental Status N/A Sepsis Action Taken by Nursing No Action Required 03/15/24 13:57 03/15/24 13:59 03/15/24 13:59 Temperature Temperature Source Pulse Rate Pulse Rate [Apical] Respiratory Rate Respiratory Effort / Characteristics Respiratory Depth Respiratory Pattern Blood Pressure Blood Pressure [Right Arm] Blood Pressure Mean Blood Pressure Mean [Right Arm] Pulse Oximetry 86 L 97 2 L Oxygen Delivery Method Room Air Nasal Cannula Nasal Cannula Oxygen Flow Rate 2 Sepsis Recent Fever Within 48 Hours Sepsis New/Unexplained Change in Mental Status Sepsis Action Taken by Nursing 03/15/24 14:15 03/15/24 15:13 03/15/24 17:17 Temperature Temperature Source Pulse Rate 73 Pulse Rate [Apical] 81 79 Respiratory Rate 30 H 25 H Respiratory Effort / Characteristics Respiratory Depth Respiratory Pattern Blood Pressure Blood Pressure [Right Arm] 117/62 134/72 Blood Pressure Mean Blood Pressure Mean [Right Arm] 80 92 Pulse Oximetry 97 96 Oxygen Delivery Method Nasal Cannula Nasal Cannula Oxygen Flow Rate 2 2 Sepsis Recent Fever Within 48 Hours Sepsis New/Unexplained Change in Mental Status Sepsis Action Taken by Nursing 03/15/24 18:18 Temperature Temperature Source Pulse Rate 81 Pulse Rate [Apical] Respiratory Rate Respiratory Effort / Characteristics Respiratory Depth Respiratory Pattern Blood Pressure Blood Pressure [Right Arm] Blood Pressure Mean Blood Pressure Mean [Right Arm] Pulse Oximetry Oxygen Delivery Method Oxygen Flow Rate Sepsis Recent Fever Within 48 Hours Sepsis New/Unexplained Change in Mental Status Sepsis Action Taken by Nursing Laboratory Data 03/15/24 13:55 03/15/24 13:55 Lab Results 03/15/24 03/15/24 03/15/24 Range/Units 13:55 14:02 17:35 WBC 9.22 (4.8-10.8) K/ul RBC 3.99 L (4.20-5.40) M/uL Hgb 12.4 (12.0-16.0) g/dl Hct 37.7 (37.0-47.0) % MCV 94.5 (80.0-100.0) fL MCH 31.1 (25.0-34.0) pg MCHC 32.9 (32.0-36.0) g/dL RDW Std Deviation 46.5 H (36.4-46.3) fL RDW Coeff of Michael 13.4 (11.5-14.5) % Plt Count 248 (130-400) K/uL MPV 9.9 (9.4-12.4) fL Immature Gran % (Auto) 0.4 % Neut % (Auto) 65.2 % Lymph % (Auto) 20.5 % [place] % (Auto) 11.9 % Eos % (Auto) 0.9 % Baso % (Auto) 1.1 % Neut # (Auto) 6.01 (1.40-6.50) K/uL Lymph # (Auto) 1.89 (1.20-3.40) K/uL [place] # (Auto) 1.10 H (0.11-0.59) K/uL Eos # (Auto) 0.08 (0.00-0.50) K/uL Baso # (Auto) 0.10 (0.00-0.20) K/uL Immature Gran # (Auto) 0.04 (0.01-0.20) K/uL D-Dimer 880 H* (0-500) ug/L FEU Sodium 137 (136-145) mmol/L Potassium 2.9 L (3.5-5.1) mmol/L Chloride 91 L (98-107) mmol/L Carbon Dioxide 39 H (21-32) mmol/L Anion Gap 7 (3-11) BUN 38 H (6-23) mg/dl Creatinine 1.54 H (0.6-1.2) mg/dl Est Cr Clr Drug Dosing 25.9 ml/min Est GFR ( Amer) 35.8 ml/min Est GFR (Non-Af Amer) 30.9 ml/min BUN/Creatinine Ratio 24.7 H (10-20) Glucose 119 H (70-99(Fasting)) mg/dl Calcium 9.2 (8.6-10.3) mg/dl Total Bilirubin 0.5 (0.2-1.0) mg/dl AST 20 (13-39) U/L ALT 13 (7-52) U/L Alkaline Phosphatase 55 (34-104) U/L Total Protein 6.8 (6.0-8.3) gm/dl Albumin 3.9 (3.4-5.0) gm/dl Globulin 2.9 (2.5-4.0) gm/dl Albumin/Globulin Ratio 1.3 (0.9-2) Urine Color Yellow Urine Appearance Clear (Clear) Urine pH 6.0 (4.5-7.5) Ur Specific [place] 1.034 H (1.000-1.030) Urine Protein Negative (Negative) Urine Glucose (UA) Negative (Negative) Urine Ketones Negative (Negative) Urine Blood Negative (Negative) Urine Nitrite Negative (Negative) Urine Bilirubin Negative (Negative) Urine Urobilinogen Negative (Negative) Ur Leukocyte Esterase Negative (Negative) Adenovirus (PCR) Not Detected (NotDetected) B. pertussis DNA (PCR) Not Detected (NotDetected) B.parapertussis DNA PCR Not Detected (NotDetected) C. pneumoniae DNA (PCR) Not Detected (NotDetected) Coronavirus OC43 (PCR) Not Detected (NotDetected) Coronavirus HKU1 (PCR) Not Detected (NotDetected) Coronavirus 229E (PCR) Not Detected (NotDetected) SARS-CoV-2 (PCR) Not Detected (NotDetected) Coronavirus NL63 (PCR) Not Detected (NotDetected) Human Metapneumovir PCR Not Detected (NotDetected) Influenza Type A (PCR) Not Detected (NotDetected) Influenza Type B (PCR) Not Detected (NotDetected) M. pneumoniae (PCR) Not Detected (NotDetected) Parainfluenza 1 (PCR) Not Detected (NotDetected) Parainfluenza 2 (PCR) Not Detected (NotDetected) Parainfluenza 3 (PCR) Not Detected (NotDetected) Parainfluenza 4 (PCR) Not Detected (NotDetected) RSV (PCR) Not Detected (NotDetected) Entero/Rhino (PCR) Not Detected (NotDetected) Administered Medications Buspirone HCl (Buspirone 5 Mg Tab) 10 mg PO HS [facility] Stop: 04/14/24 20:59 Last Admin: 03/15/24 21:54 Dose: 10 mg Documented By: KAYE Gabapentin (Gabapentin 300 Mg Cap) 300 mg PO BID JOSE Stop: 04/14/24 20:59 Last Admin: 03/15/24 21:56 Dose: 300 mg Documented By: KAYE Sodium Chloride (Nss) 1,000 mls @ 75 mls/hr IV .[id number] JOSE Stop: 04/14/24 20:33 Last Admin: 03/15/24 21:58 Dose: 75 mls/hr Documented By: KAYE Potassium Chloride (K [place] / Wtr) 10 meq in 100 mls @ 100 mls/hr IV Q1H JOSE Stop: 03/16/24 01:29 Last Admin: 03/15/24 21:58 Dose: 100 mls/hr Documented By: KAYE Losartan Potassium (Losartan Potassium 50 Mg Tab) 100 mg PO HS JOSE Stop: 04/14/24 20:59 Last Admin: 03/15/24 21:55 Dose: 100 mg Documented By: KAYE Metoprolol Tartrate (Metoprolol Tartrate 50 Mg Tab) 50 mg PO BID JOSE Stop: 04/14/24 20:59 Last Admin: 03/15/24 21:55 Dose: 50 mg Documented By: KAYE Discontinued Medications Ioversol (Optiray 320 125ml) 118 ml IV ONCE ONE Stop: 03/15/24 15:54 Last Admin: 03/15/24 15:53 Dose: 118 ml Documented By: SUZAN Lorazepam (Lorazepam 1 Mg/1 Ml Syr Ed Inj Use) 0.5 mg IV ONE STA Stop: 03/15/24 18:12 Last Admin: 03/15/24 18:15 Dose: 0.5 mg Documented By: KAYE Imaging Data Radiologist's Impression: Chest X-Ray 03/15/24 14:08 XR chest 1V portable CLINICAL HISTORY: Dyspnea COMPARISON STUDY: Chest radiograph and chest CT September 25, 2022. FINDINGS: Status post median sternotomy. Mild cardiomegaly is unchanged. Asymmetric right hilar mass-like enlargement is present. Left hilum is normal. There is a trace right pleural effusion. No pneumothorax is present. Pulmonary vascular congestion. Left basilar opacity similar to prior exam and favors atelectasis. IMPRESSION: 1. Asymmetric right hilar mass-like enlargement. Although this could be due to pulmonary vessels, a mass or lymphadenopathy cannot be excluded. Chest CT with contrast is recommended. 2. Cardiomegaly with pulmonary vascular congestion. Trace right pleural effusion. 3. Left basilar opacity which likely reflects atelectasis. ACT 112: Positive. There are findings on this exam that require communication between the performing entity and the patient following Patient Test Result Information Act ([place] Act 112) guidelines. Electronically signed by: Nam Delgado M.D. 03/15/2024 2:42 PM Chest CTA 03/15/24 15:02 CHEST CTA for PULMONARY ARTERIES CT DOSE: 727.07 mGy.cm HISTORY: Shortness of breath. TECHNIQUE: Multiaxial CT images of the chest were performed following the intravenous administration of contrast to evaluate the pulmonary arteries. 3D/Maximal intensity projection images were also obtained. Sagittal and coronal reformations were also reviewed. A dose lowering technique was utilized adhering to the principles of ALARA. COMPARISON STUDY: Chest CTA 09/25/2022. FINDINGS: Postoperative changes consistent with graft repair of an ascending thoracic aortic aneurysm. No evidence for an aortic dissection. 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 This remains unchanged. No filling defects within the pulmonary arteries to suggest a pulmonary embolus. However, there is mass effect within the right central pulmonary arteries due to the mediastinal/hilar mass with moderate narrowing of the right upper lobe pulmonary arteries. The heart is normal in size. There is a small right pleural effusion. No pericardial effusion. Limited views of the upper abdomen demonstrate normal liver and spleen. Right anterior diaphragmatic lymphadenopathy measuring up to 2.2 cm consistent with metastatic disease. A few subcentimeter thyroid nodules. These do not meet CT criteria for follow-up. Normal caliber esophagus. There are poststernotomy changes. No suspicious lytic or blastic osseous lesions. Emphysema. No pneumothorax. The right upper lobe bronchus is opacified/obstructed by the right hilar mass. There is also moderate to severe narrowing of the bronchus intermedius due to an endobronchial component of the right hilar mass. This is best seen image 114. The left central airways are patent. There is a 2.1 cm nodule within the left upper lobe abutting the mediastinum on image 153. This likely represents metastatic disease. Biapical pleural-parenchymal nodular densities remain stable and favor scarring. Small focal peripheral consolidation within the right upper lobe anteriorly may represent a postobstructive pneumonitis. There is been interval development of a large right hilar/upper lobe mass which invades into the mediastinum. This results in approximately 75% narrowing of the SVC without evidence for occlusion at this time. This mass extends in to the right paratracheal and subcarinal locations. No left hilar lymphadenopathy. This mass measures approximately 10 x 8 cm and encases multiple right pulmonary arteries and invades into the right upper lobe bronchi and bronchus intermedius. IMPRESSION: 1. No evidence for pulmonary embolus. 2. Interval development of a large right hilar/upper lobe mass measuring 10 x 8 cm described above. This is highly suspicious for a primary bronchogenic malignancy. 3. Right anterior diaphragmatic lymphadenopathy likely represents metastatic disease. 4. There is a 2.1 cm left upper lobe nodule abutting the mediastinum likely representing metastatic disease. 5. Small right pleural effusion which may represent a malignant pleural effusion. 6. This right hilar/upper lobe mass results in mass effect along the right pulmonary arteries as well as invasion into the right upper lobe bronchus and bronchus intermedius as described above. 7. This mass also results in severe narrowing of the SVC without evidence for occlusion at this time. 8. Additional findings as described above. ACT 112: Negative or not required by law. Electronically signed by: Martin Granados M.D. 03/15/2024 5:06 PM Discharge Plan Visit Data Chief Complaint: Respiratory Problems Stated Complaint: ILLNESS ED Provider: Ty Arenas Discharge Problem: Acute hypoxic respiratory failure, SVC obstruction, Suspected malignant neoplasm of lung, Myoclonic jerking Patient Disposition: Admitted As Inpatient Discharge Instructions Interventions: ED Discharge Assessment Last Done: 03/15/24 20:32
[2024-03-15] MEDS: OPTIRAY 320 125ml IV ONE (15:53)
--- NOTE | 2024-03-15 16:30 | Electrocardiogram Report ---
Test Reason : Blood Pressure : / mmHG Vent. Rate : 074 BPM Atrial Rate : 074 BPM P-R Int : 194 ms QRS Dur : 104 ms QT Int : 428 ms P-R-T Axes : 081 060 090 degrees QTc Int : 475 ms Poor data quality, interpretation may be adversely affected Normal sinus rhythm Abnormal ECG When compared with ECG of 04-JAN-2024 09:58, (unconfirmed) Sinus rhythm has replaced Junctional rhythm T wave inversion now evident in Anterior leads Confirmed by Max Jane ([id number]) on 03/15/2024 4:30:21 PM Referred By: REFERRED SELF Confirmed By:Max Jane
--- NOTE | 2024-03-15 17:09 | CT Scan Report ---
CHEST CTA for PULMONARY ARTERIES CT DOSE: 727.07 mGy.cm HISTORY: Shortness of breath. TECHNIQUE: Multiaxial CT images of the chest were performed following the intravenous administration of contrast to evaluate the pulmonary arteries. 3D/Maximal intensity projection images were also obta ined. Sagittal and coronal reformations were also reviewed. A dose lowering technique was utilized a dhering to the principles of ALARA. COMPARISON STUDY: Chest CTA 09/25/2022. FINDINGS: Postoperative changes consistent with graft repair of an ascending thoracic aortic aneurysm . No evidence for an aortic dissection. There is persistent aneurysmal dilatation of the proximal aor tic arch just beyond the aneurysm repair which measures approximately 4.5 cm in diameter. This remain s unchanged. No filling defects within the pulmonary arteries to suggest a pulmonary embolus. However , there is mass effect within the right central pulmonary arteries due to the mediastinal/hilar mass with moderate narrowing of the right upper lobe pulmonary arteries. The heart is normal in size. Ther e is a small right pleural effusion. No pericardial effusion. Limited views of the upper abdomen demo nstrate normal liver and spleen. Right anterior diaphragmatic lymphadenopathy measuring up to 2.2 cm consistent with metastatic disease. A few subcentimeter thyroid nodules. These do not meet CT criteri a for follow-up. Normal caliber esophagus. There are poststernotomy changes. No suspicious lytic or b lastic osseous lesions. Emphysema. No pneumothorax. The right upper lobe bronchus is opacified/obstru cted by the right hilar mass. There is also moderate to severe narrowing of the bronchus intermedius due to an endobronchial component of the right hilar mass. This is best seen image 114. The left cent ral airways are patent. There is a 2.1 cm nodule within the left upper lobe abutting the mediastinum on image 153. This likely represents metastatic disease. Biapical pleural-parenchymal nodular densiti es remain stable and favor scarring. Small focal peripheral consolidation within the right upper lobe anteriorly may represent a postobstructive pneumonitis. There is been interval development of a larg e right hilar/upper lobe mass which invades into the mediastinum. This results in approximately 75% n arrowing of the SVC without evidence for occlusion at this time. This mass extends in to the right pa ratracheal and subcarinal locations. No left hilar lymphadenopathy. This mass measures approximately 10 x 8 cm and encases multiple right pulmonary arteries and invades into the right upper lobe bronchi and bronchus intermedius. IMPRESSION: 1. No evidence for pulmonary embolus. 2. Interval development of a large right hilar/upper lobe mass measuring 10 x 8 cm described above. T his is highly suspicious for a primary bronchogenic malignancy. 3. Right anterior diaphragmatic lymphadenopathy likely represents metastatic disease. 4. There is a 2.1 cm left upper lobe nodule abutting the mediastinum likely representing metastatic d isease. 5. Small right pleural effusion which may represent a malignant pleural effusion. 6. This right hilar/upper lobe mass results in mass effect along the right pulmonary arteries as well as invasion into the right upper lobe bronchus and bronchus intermedius as described above. 7. This mass also results in severe narrowing of the SVC without evidence for occlusion at this time. 8. Additional findings as described above. ACT 112: Negative or not required by law. Electronically signed by: Martin Granados M.D. 03/15/2024 5:06 PM
[2024-03-15 18:00] LABS: Appearance Urine Clear (Clear); Bilirubin Urine Negative (Negative); Blood Urine Negative (Negative); Color Urine Yellow; Glucose Urine UA Negative (Negative); Ketones Urine Negative (Negative); Leukocyte Esterase Urine Negative (Negative); Nitrite Urine Negative (Negative); Protein Urine Negative (Negative); Specific Gravity Urine 1.034 (1.000-1.030); Urobilinogen Urine Negative (Negative)
[2024-03-15] MEDS: LORazepam 1 MG/1 ML SYR ED Inj Use IV STA (18:15)
--- NOTE | 2024-03-15 19:10 | History & Physical Report ---
Date of Service March 15, 2024 Assessment & Plan (1) Acute hypoxic respiratory failure: (2) Suspected malignant neoplasm of lung: (3) Myoclonic jerking: (4) Acute kidney injury: (5) Lymphadenopathy, mediastinal: (6) SVC obstruction: (7) Paroxysmal atrial fibrillation: (8) Hypokalemia: (9) Mild right ventricular systolic dysfunction: (10) Postobstructive pneumonia: Plan Patient is an 83-year-old female presents to the emergency room with acute hypoxic respiratory failure due to suspected lung malignancy. There is evidence of metastatic disease within the chest, there is also evidence of almost complete compression and occlusion of SVC. She also noted to be quite hypokalemic and evidence of acute kidney injury. There is a question whether there may also be a component of postobstructive pneumonia. Patient is critically ill. Requires hospital level care and intervention with antibiotics, oxygen support specialty consultation. Admit to a monitored unit Aggressively replace potassium IV and orally Empiric oral antibiotics for postobstructive pneumonia Consult pulmonary to evaluate for possible bronchoscopy and biopsy CT of the head abdomen and pelvis to evaluate for additional metastatic disease Consult care management, anticipate patient will need home oxygen. 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 Explained to them that if they would want to pursue treatment they initially need to have a tissue diagnosis. Explained that we will start getting the opinion of the phototypesetting equipment monitor to evaluate for possible bronchoscopy, however IR guided biopsy may be an option as well. We also discussed advanced directives patient would not want to be placed on a ventilator and have artificial mechanical ventilation, however would want aggressive treatments up to that point. History of Present Illness Chief Complaint: Shortness of breath and tremor Primary Care Provider: Ramon Quesada DO Patient is a 83-year-old female who presented to the emergency room with the above complaint. In the emergency room she was noted to be hypoxic with a room air O2 sat in the mid 80s. She responded to 2 L of oxygen nasal cannula with an appropriate O2 sat in the mid 90s. Further evaluation in the ED showed imaging with a large right upper lobe mass as well as metastatic lesion in the left lung and hilar adenopathy. Also showed almost total occlusion and compression of the SVC. She was also noted to be quite hypokalemic. Due to her new oxygen requirement and these findings of severe hypokalemia was referred to our service for further evaluation. At time of my evaluation the patient is feeling a bit better. She had also been complaining of myoclonic jerks. This seems to have improved after receiving some of the Ativan. She denies any fever or chills. She does admit a year or so ago she was at [place] for evaluation of her gallbladder. At that time she was notified that she may have a lung nodule. Is unclear whether she ever followed up on this. Reviewing [facility] EMR her last chest x-ray was in 2021. Patient does have a significant cardiac history with valve replacement surgery in the past. Overall from a cardiac standpoint she has been doing fairly well. She denies any chest pain. She denies any significant swelling in her legs. She did have a loose stool but otherwise denies any new problems with her bowels or bladder. Patient states that she does have some double vision which she has been noticing for quite some time has not had any evaluation for this. She does state that she has some twitching of her left eye lid and has some drops that she uses [id number]. Son is at the bedside and also help contribute some to the HPI. She has an extensive smoking history of about a half a pack a year for 49 years. She quit in 2009. Allergies Allergy/AdvReac Type Severity Reaction Status Date / Time azithromycin Allergy Severe throat Verified 03/15/24 16:38 swelling sulfamethoxazole Allergy Intermediate Hives Verified 03/15/24 16:38 trimethoprim Allergy Intermediate Hives Verified 03/15/24 16:38 penicillin V Allergy Mild arm Verified 03/15/24 16:38 swelling with PCN (tolerates oral PCN/Amoxicillin) Home Medications Medication Instructions Recorded Confirmed Type multivitamin 1 tab PO QAM 06/03/19 03/15/24 History amlodipine 2.5 mg tablet 2.5 mg PO QAM 09/23/22 03/15/24 History buspirone 10 mg tablet 10 mg PO HS 09/23/22 03/15/24 History calcium carbonate 600 mg-vitamin 1 tab PO HS 09/23/22 03/15/24 History D3 20 mcg (800 unit) chewable tablet (Caltrate 600 plus D) apixaban 5 mg tablet 5 mg PO BID #180 tabs 11/02/22 03/15/24 Rx aspirin 81 mg tablet,delayed 81 mg PO QAM 11/13/22 03/15/24 History release (Adult Low Dose Aspirin) albuterol sulfate 90 mcg/actuation 2 puff inhalation QID PRN 01/01/23 03/15/24 Rx aerosol inhaler shortness of breath or wheezing #8.5 grams metoprolol tartrate 50 mg tablet 50 mg PO BID #180 tabs 09/05/23 03/15/24 Rx amiodarone 200 mg tablet 200 mg PO DAILY #90 tabs 02/08/24 03/15/24 Rx bumetanide 2 mg tablet 3 mg PO DAILY 03/15/24 03/15/24 History gabapentin 300 mg capsule 300 mg PO BID 03/15/24 03/15/24 History losartan 100 mg tablet 100 mg PO HS 03/15/24 03/15/24 History potassium chloride 10 mEq 10 meq PO BID 03/15/24 03/15/24 History capsule,extended release Past Med/Surg History Problem List (Updated 03/15/24 @ 19:10 by Thai Gray DO) Postobstructive pneumonia Myoclonic jerking Suspected malignant neoplasm of lung Acute kidney injury Lymphadenopathy, mediastinal SVC obstruction Paroxysmal atrial fibrillation Acute hypoxic respiratory failure Hypokalemia (Acute) Atypical chest pain Mild right ventricular systolic dysfunction Medical History (Updated 03/15/24 @ 19:10 by Thai Gray DO) Abdominal aortic ectasia Severe mitral regurgitation Moderate left ventricular systolic dysfunction Alveolar emphysema of lung Hypertension Dyslipidemia Mild coronary artery disease normal coronary arteries with mild luminal irregularities per 2011 cardiac cath Moderate to severe mitral regurgitation Severe per 11/2022 ECHO Seasonal allergies Anxiety Chronic back pain Breast cancer right, XRT in 1986 Aortic aneurysm s/p repair (2010), follows with [facility] cardio Osteoporosis, unspecified Post-traumatic arthritis of ankle Surgical History (Updated 03/15/24 @ 18:17 by Thai Gray DO) 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 Status post open reduction with internal fixation (ORIF) of fracture of ankle Right ankle ORIF: 06/03/20: Grade view 1, MAC#3, ETT 7 at [facility] Status post thoracic aortic aneurysm repair with a stent + "blow out patch" (2010) [facility] History of cardioversion 10/2022 [facility] S/P ankle arthrodesis H/O decompression of ulnar nerve right History of carpal tunnel release right and left History of cataract surgery bilateral History of tonsillectomy History of appendectomy History of colonoscopy Hx of lumpectomy right breast with radiation History of bilateral tubal ligation H/O lumbar discectomy with hardware/cage S/P hardware removal Left wrist Status post open reduction and internal fixation (ORIF) of fracture Left wrist History of cardiac cath 2011- , no stents; f/u dr [facility] [place] History of open reduction and internal fixation (ORIF) procedure left wrist Family History Mother Heart disease Other No family history of adverse response to anesthesia Social History Smoking Status: Former smoker Tobacco Type: Cigarettes Cigarettes Per Day: QUIT >12 YRS AGO; Second Hand Exposure: No; Do You Dip or Chew Tobacco: No; Hx Alcohol Use: No Hx Substance Use: No Preferred Language: Mohawk Communication Ability: Effective Finisher Card Tender Required: No Beliefs That Will Affect Care: None marital status: / Current Living Situation: Family Current Living Situation Comment: son, & grandson Feels Safe at Home: Yes Assistive Devices: Denture - Upper and Glasses Review of Systems Review of Systems: Pertinent positive and negative review of systems as mentioned in the HPI Physical Exam Physical Exam: Constitutional: Alert, ill in appearance, nontoxic HEENT: Mucous membranes moist. Sclera clear Neck: Soft, no adenopathy Lungs: Decreased breath sounds, prolonged expiratory phase, some rhonchi CV: S1-S2, regular Abdomen: Soft, nontender, nondistended Extremities: Trace pretibial edema Musculoskeletal: No significant joint tenderness Neuro: No focal deficits Psych: Cooperative, normal mood Results & Data Results & Data Vital Signs (Past 12 Hours) Vital Signs Temp Pulse Pulse Resp BP BP Pulse Ox 03/15/24 18:18 81 03/15/24 17:17 79 25 H 134/72 96 03/15/24 15:13 81 30 H 117/62 97 03/15/24 14:15 73 03/15/24 13:59 2 L 03/15/24 13:59 97 03/15/24 13:57 86 L 03/15/24 13:57 03/15/24 13:45 76 86 L 03/15/24 13:45 36.6 C 78 20 125/78 86 L O2 Del Method O2 Flow Rate 03/15/24 18:18 03/15/24 17:17 Nasal Cannula 2 03/15/24 15:13 Nasal Cannula 2 03/15/24 14:15 03/15/24 13:59 Nasal Cannula 03/15/24 13:59 Nasal Cannula 2 03/15/24 13:57 Room Air 03/15/24 13:57 Room Air 03/15/24 13:45 Room Air 03/15/24 13:45 Room Air Diagnostic Findings Reviewed imaging, laboratory and diagnostic studies. Pertinent findings as below. Personally reviewed EKG, sinus rhythm, no acute ST-T wave changes Personally reviewed chest x-ray mediastinal mass, right sided mass Reviewed CT chest images and report Respiratory viral panel negative Potassium 2.9 Creatinine 1.5 Communication with ED physician as to patient's HPI Extensive review of outpatient notes and outside EMR for history and most recent testing including most recent outpatient PCP note Code Status & VTE Plan VTE Prophylaxis Plan VTE Prophylaxis will be ordered: Yes
[2024-03-15] MEDS ORDERED: ALUMINUM/MAGNESIUM SUSP 30 ML UDC PO PRN (20:34)
[2024-03-15] MEDS: busPIRone 5 MG TAB PO SCH (21:54)
[2024-03-15] MEDS: METOPROLOL TARTRATE 50 MG TAB PO SCH (21:55)
[2024-03-15] MEDS: LOSARTAN POTASSIUM 50 MG TAB PO SCH (21:55)
[2024-03-15] MEDS: GABAPENTIN 300 MG CAP PO SCH (21:56)
[2024-03-15] MEDS: SODIUM CHLORIDE 0.9% 1,000 ML IV SCH (21:58)
[2024-03-15] MEDS: POTASSIUM CHLORIDE / WTR 10 MEQ/100 ML PLCT IV SCH (21:58)
[2024-03-15] MEDS: levoFLOXacin 750 MG TAB PO SCH (22:14)
[2024-03-15] MEDS: ONDANSETRON INJ 2 MG/ML 2 ML VIAL IV PRN (22:54)
[2024-03-15] MEDS: POTASSIUM CHLORIDE CRTAB 20 MEQ TABCR PO SCH (23:37)
[2024-03-16 05:38] LABS: Hematocrit (blood only) 36.9 % (37.0-47.0); Hemoglobin 11.6 g/dl (12.0-16.0); Mean Corpuscular Hemoglobin 30.4 pg (25.0-34.0); Mean Corpuscular Hgb Conc 31.4 g/dL (32.0-36.0); Mean Corpuscular Volume 96.6 fL (80.0-100.0); Mean Platelet Volume 9.9 fL (9.4-12.4); Platelet Count 222 K/uL (130-400); RDW Coefficient of Variation 13.6 % (11.5-14.5); RDW Standard Deviation 48.3 fL (36.4-46.3); Red Blood Count 3.82 M/uL (4.20-5.40); White Blood Count 7.39 K/ul (4.8-10.8)
[2024-03-16 05:46] LABS: BUN Creatinine Ratio 29.2 (10-20); Calcium 8.5 mg/dl (8.6-10.3); Creatinine Clr Calc Pharmacy 44.8 ml/min; Est GFR (African American) 69.5 ml/min; Est GFR (Non-African American) 59.9 ml/min; Magnesium 2.1 mg/dl (1.7-2.4); Potassium 3.6 mmol/L (3.5-5.1)
[2024-03-16] MEDS: BUMETANIDE 1 MG TAB PO SCH (08:03)
[2024-03-16] MEDS: AMOXICILLIN/CLAVULANATE 875 MG TAB PO SCH (08:03)
[2024-03-16] MEDS: amLODIPine BESYLATE 5 MG TAB PO SCH (08:03)
[2024-03-16] MEDS: AMIODARONE 200 MG TAB PO SCH (08:04)
--- NOTE | 2024-03-16 08:13 | Pre Anesthesia Assessment ---
Date of Service March 16, 2024 Pre Sedation Assessment Vital Signs Temp Pulse Pulse Resp BP BP Pulse Ox 03/16/24 08:02 85 26 H 133/63 90 03/16/24 07:11 88 03/16/24 06:11 79 17 118/55 L 99 03/16/24 06:07 80 18 99 03/16/24 05:50 77 16 98 03/16/24 05:40 77 19 98 03/16/24 05:30 75 18 97 03/16/24 05:20 77 18 03/16/24 05:10 78 17 03/16/24 05:00 77 17 96 03/16/24 04:51 78 20 97 03/16/24 04:41 78 17 97 03/16/24 04:30 80 21 97 03/16/24 04:21 80 21 113/68 97 03/16/24 04:20 80 21 97 03/16/24 04:10 82 22 97 03/16/24 04:01 84 26 H 97 03/16/24 03:50 87 25 H 96 03/16/24 03:44 103 H 24 03/16/24 03:30 81 19 96 03/16/24 03:20 88 20 98 03/16/24 03:10 80 21 98 03/16/24 03:00 78 20 98 03/16/24 02:50 81 21 98 03/16/24 02:40 80 24 99 03/16/24 02:30 75 27 H 99 03/16/24 02:20 76 18 99 03/16/24 02:10 77 21 99 03/16/24 02:00 76 18 89 L 03/16/24 01:50 76 35 H 03/16/24 01:41 77 25 H 92 03/16/24 01:30 77 31 H 92 03/16/24 01:24 03/16/24 01:24 78 17 97/59 L 94 03/16/24 01:24 03/16/24 01:21 77 26 H 97 03/16/24 01:11 76 22 98 03/16/24 01:01 79 20 97/59 L 99 03/16/24 01:00 78 19 03/16/24 00:50 78 20 100 03/16/24 00:40 76 21 99 03/16/24 00:30 76 21 99 03/16/24 00:20 79 28 H 99 03/16/24 00:10 82 23 100 03/16/24 00:00 82 23 126/64 99 03/15/24 23:57 86 18 03/15/24 23:40 83 27 H 97 03/15/24 23:32 77 24 99 03/15/24 23:32 114/57 L 03/15/24 23:30 81 20 100 03/15/24 23:20 76 22 99 03/15/24 23:10 105 H 28 H 100 03/15/24 23:00 80 22 100 03/15/24 23:00 80 03/15/24 22:51 117/59 L 03/15/24 22:51 82 24 95 03/15/24 22:51 82 18 117/59 L 98 03/15/24 22:40 78 22 100 03/15/24 22:30 74 22 03/15/24 22:20 78 25 H 03/15/24 22:10 80 20 03/15/24 22:00 82 16 03/15/24 21:50 75 22 97 03/15/24 21:40 75 20 97 03/15/24 21:30 78 23 97 03/15/24 21:20 73 14 94 03/15/24 21:10 75 8 L 92 03/15/24 21:00 80 2 L 93 03/15/24 20:50 73 18 95 03/15/24 20:40 72 16 95 03/15/24 20:30 74 17 94 03/15/24 20:20 77 19 95 03/15/24 20:10 79 17 95 03/15/24 20:00 75 19 93 03/15/24 19:53 122/66 03/15/24 19:53 78 22 94 03/15/24 19:50 77 18 94 03/15/24 19:40 80 23 95 03/15/24 19:30 77 20 95 03/15/24 19:20 79 19 94 03/15/24 19:10 82 20 94 03/15/24 19:00 81 28 H 95 03/15/24 18:50 82 24 96 03/15/24 18:40 84 25 H 96 03/15/24 18:30 81 22 96 03/15/24 18:18 81 03/15/24 17:17 79 25 H 134/72 96 03/15/24 15:13 81 30 H 117/62 97 03/15/24 14:15 73 03/15/24 13:59 2 L 03/15/24 13:59 97 03/15/24 13:57 86 L 03/15/24 13:57 03/15/24 13:45 76 86 L 03/15/24 13:45 36.6 C 78 20 125/78 86 L O2 Del Method O2 Flow Rate 03/16/24 08:02 Nasal Cannula 4 03/16/24 07:11 03/16/24 06:11 Oxymask 4 03/16/24 06:07 03/16/24 05:50 03/16/24 05:40 Oxymask 4 03/16/24 05:30 03/16/24 05:20 03/16/24 05:10 03/16/24 05:00 Oxymask 4 03/16/24 04:51 03/16/24 04:41 03/16/24 04:30 03/16/24 04:21 03/16/24 04:20 03/16/24 04:10 03/16/24 04:01 03/16/24 03:50 03/16/24 03:44 03/16/24 03:30 03/16/24 03:20 03/16/24 03:10 03/16/24 03:00 03/16/24 02:50 03/16/24 02:40 03/16/24 02:30 03/16/24 02:20 03/16/24 02:10 03/16/24 02:00 03/16/24 01:50 03/16/24 01:41 Nasal Cannula 4 03/16/24 01:30 03/16/24 01:24 Nasal Cannula 4 03/16/24 01:24 Nasal Cannula 4 03/16/24 01:24 Nasal Cannula 4 03/16/24 01:21 03/16/24 01:11 03/16/24 01:01 Nasal Cannula 4 03/16/24 01:00 03/16/24 00:50 03/16/24 00:40 03/16/24 00:30 03/16/24 00:20 03/16/24 00:10 03/16/24 00:00 Nasal Cannula 4 03/15/24 23:57 03/15/24 23:40 03/15/24 23:32 03/15/24 23:32 03/15/24 23:30 03/15/24 23:20 03/15/24 23:10 03/15/24 23:00 03/15/24 23:00 03/15/24 22:51 03/15/24 22:51 03/15/24 22:51 Nasal Cannula 4 03/15/24 22:40 03/15/24 22:30 03/15/24 22:20 03/15/24 22:10 03/15/24 22:00 03/15/24 21:50 03/15/24 21:40 03/15/24 21:30 03/15/24 21:20 03/15/24 21:10 03/15/24 21:00 03/15/24 20:50 03/15/24 20:40 03/15/24 20:30 03/15/24 20:20 03/15/24 20:10 03/15/24 20:00 03/15/24 19:53 03/15/24 19:53 03/15/24 19:50 03/15/24 19:40 03/15/24 19:30 03/15/24 19:20 03/15/24 19:10 03/15/24 19:00 03/15/24 18:50 03/15/24 18:40 03/15/24 18:30 03/15/24 18:18 03/15/24 17:17 Nasal Cannula 2 03/15/24 15:13 Nasal Cannula 2 03/15/24 14:15 03/15/24 13:59 Nasal Cannula 03/15/24 13:59 Nasal Cannula 2 03/15/24 13:57 Room Air 03/15/24 13:57 Room Air 03/15/24 13:45 Room Air 03/15/24 13:45 Room Air Pre-Sedation Airway Assessment Smoking Status: Never smoker Hx Sleep Apnea: No Mallampati Class: III ASA: [id number] NPO Status Date of Last Intake of Fluids: 03/13/24 Date of Last Intake of Solid Food: 03/13/24 Notes The planned sedation has been discussed with the patient. Informed Consent was obtained. I have identified the patient, determined the appropriateness of sedation and have assessed the patient immediately prior to the procedure. All medicine(s) and interventions are by my order.
--- NOTE | 2024-03-16 08:13 | History & Physical Bridge Note ---
Date of Service March 16, 2024 History & Physical Bridge Note I have examined the patient, reviewed the History & Physical and in the interval since the performance of the History & Physical I have noted the following changes of clinical significance: no changes noted
--- NOTE | 2024-03-16 09:00 | Pulmonary Consultation ---
Date of Consultation March 16, 2024 Assessment & Plan (1) SVC obstruction: (2) Suspected malignant neoplasm of lung: (3) Abnormal CT scan of lung: Plan Impression: 83-year-old female with extensive tobacco history with reported history of prior nodules although her prior films were not available to review. 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 Pattern is consistent and concerning for bronchogenic malignancy. Recommendations: 1. Patient will be studied with a contrast-enhanced CT of the chest. She states that she has some sort of stent in her aorta that does not allow for MRI scanning. She understands that CT of the head with and without contrast is suboptimal but she is adamant that she will avoid MRI of the brain. Agree with CT of the abdomen and pelvis as ordered 2. Patient was taking Eliquis up until the time of admission. Will need to hold anticoagulation for 24 hours prior to considering bronchoscopy. Bronchoscopy was scheduled for a.m.. N.p.o. after midnight. She can take a diet now. 3. I see no evidence of postobstructive pneumonia and antibiotics will be discontinued. 4. Will hold diuretics in the face of potential SVC syndrome. Volume expansion may be required. Keep head of bed elevated. No central lines in the neck. 5. Discussed case briefly with radiation oncology and medical oncology. She will need therapy as quickly as possible. If this is a non-small cell cancer, palliative radiation may be a consideration. If it small cell, initiation of carboplatin and etoposide may be appropriate. We should have a preliminary answer tomorrow after the bronchoscopy and at that point time we will proceed with either medical oncology evaluation and radiation oncology evaluation. The patient was advised that this is not likely curable but may be treatable. She is willing to consider all treatment options at this point in time. CODE STATUS as documented by the admitting service. Next the opportunity participate in the care of this patient. Feel free to contact us with questions or concerns. Will continue to follow with you History of Present Illness Attending Physician: Deanna Pierce MD History of Present Illness Asked by hospitalist to assist in evaluation management this patient admitted with an abnormal CT scan. History is obtained from discussion with the patient as well as review electronic medical record. Patient is an 83-year-old female who quit smoking about 12 years ago after about a [id number] history. She relates that she has had multiple CT scans performed in the [facility] and was [facility] that [facility] but she is never undergone a biopsy. She presented to the emergency room yesterday with complaints of shortness of breath. She does not use oxygen at baseline but was found to be hypoxemic. 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 Patient does endorse some blurry vision over the last 2 weeks as well as head aches over the last 2 to 3 weeks. She has not had any seizures. She does have dilated veins on her anterior chest. Patient was placed on oxygen. Her electrolytes were repleted. She is placed on antibiotics for potential postobstructive pneumonia. Pulmonary was consulted for additional evaluation management Allergies Allergy/AdvReac Type Severity Reaction Status Date / Time azithromycin Allergy Severe throat Verified 03/15/24 16:38 swelling sulfamethoxazole Allergy Intermediate Hives Verified 03/15/24 16:38 trimethoprim Allergy Intermediate Hives Verified 03/15/24 16:38 penicillin V Allergy Mild arm Verified 03/15/24 16:38 swelling with PCN (tolerates oral PCN/Amoxicillin) Home Medications Medication Instructions Recorded Confirmed Type multivitamin 1 tab PO QAM 06/03/19 03/15/24 History amlodipine 2.5 mg tablet 2.5 mg PO QAM 09/23/22 03/15/24 History buspirone 10 mg tablet 10 mg PO HS 09/23/22 03/15/24 History calcium carbonate 600 mg-vitamin 1 tab PO HS 09/23/22 03/15/24 History D3 20 mcg (800 unit) chewable tablet (Caltrate 600 plus D) apixaban 5 mg tablet 5 mg PO BID #180 tabs 11/02/22 03/15/24 Rx aspirin 81 mg tablet,delayed 81 mg PO QAM 11/13/22 03/15/24 History release (Adult Low Dose Aspirin) albuterol sulfate 90 mcg/actuation 2 puff inhalation QID PRN 01/01/23 03/15/24 Rx aerosol inhaler shortness of breath or wheezing #8.5 grams metoprolol tartrate 50 mg tablet 50 mg PO BID #180 tabs 09/05/23 03/15/24 Rx amiodarone 200 mg tablet 200 mg PO DAILY #90 tabs 02/08/24 03/15/24 Rx bumetanide 2 mg tablet 3 mg PO DAILY 03/15/24 03/15/24 History gabapentin 300 mg capsule 300 mg PO BID 03/15/24 03/15/24 History losartan 100 mg tablet 100 mg PO HS 03/15/24 03/15/24 History potassium chloride 10 mEq 10 meq PO BID 03/15/24 03/15/24 History capsule,extended release Patient History Medical History (Updated 03/16/24 @ 08:55 by Bird Banerjee MD) Abdominal aortic ectasia Severe mitral regurgitation Moderate left ventricular systolic dysfunction Alveolar emphysema of lung Hypertension Dyslipidemia Mild coronary artery disease normal coronary arteries with mild luminal irregularities per 2011 cardiac cath Moderate to severe mitral regurgitation Severe per 11/2022 ECHO Seasonal allergies Anxiety Chronic back pain Breast cancer right, XRT in 1986 Aortic aneurysm s/p repair (2010), follows with [facility] cardio Osteoporosis, unspecified Post-traumatic arthritis of ankle Surgical History (Updated 03/15/24 @ 18:17 by Thai Gray DO) 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 Status post open reduction with internal fixation (ORIF) of fracture of ankle Right ankle ORIF: 06/03/20: Grade view 1, MAC#3, ETT 7 at [facility] Status post thoracic aortic aneurysm repair with a stent + "blow out patch" (2010) [facility] History of cardioversion 10/2022 [facility] S/P ankle arthrodesis H/O decompression of ulnar nerve right History of carpal tunnel release right and left History of cataract surgery bilateral History of tonsillectomy History of appendectomy History of colonoscopy Hx of lumpectomy right breast with radiation History of bilateral tubal ligation H/O lumbar discectomy with hardware/cage S/P hardware removal Left wrist Status post open reduction and internal fixation (ORIF) of fracture Left wrist History of cardiac cath 2011- [place], no stents; f/u dr javed [place] History of open reduction and internal fixation (ORIF) procedure left wrist Family History Mother Heart disease Other No family history of adverse response to anesthesia Social History Smoking Status: Never smoker Tobacco Type: Cigarettes Cigarettes Per Day: QUIT >12 YRS AGO; Second Hand Exposure: No; Do You Dip or Chew Tobacco: No; Hx Alcohol Use: No Hx Substance Use: No Preferred Language: Palestinian Communication Ability: Effective [employer]force Business Analyst Required: No Beliefs That Will Affect Care: None marital status: / Current Living Situation: Family Current Living Situation Comment: son, & grandson Other Information That Helps Us Care for You: No Feels Safe at Home: Yes Safety Concerns: Feels Safe At This Time Assistive Devices: Cane and Glasses Review of Systems Review of Systems: Please refer to admission H&P. No additions or deletions Physical Exam Constitutional: Elderly female who is awake alert and conversant Neck: trachea midline, no thyromegaly Respiratory: + tachypneic; no respiratory distress Auscultation: + rhonchi Cardiovascular: RRR, no murmur, no edema Chest (Breasts): Additional Comments: Patient has dilated veins over the anterior chest Gastrointestinal (Abdomen): normal bowel sounds, soft, nontender, no hepatosplenomegaly Musculoskeletal: Extremities: extremities normal to inspection Skin: no rashes, warm and dry Neurologic: Nonfocal exam Lymphatic: no cervical lymphadenopathy Results & Data Results & Data Vital Signs (Past 12 Hours) Vital Signs Pulse Pulse Resp BP BP Pulse Ox O2 Del Method 03/16/24 08:02 85 26 H 133/63 90 Nasal Cannula 03/16/24 08:00 Nasal Cannula 03/16/24 07:11 88 03/16/24 06:11 79 17 118/55 L 99 Oxymask 03/16/24 06:07 80 18 99 03/16/24 05:50 77 16 98 03/16/24 05:40 77 19 98 Oxymask 03/16/24 05:30 75 18 97 03/16/24 05:20 77 18 03/16/24 05:10 78 17 03/16/24 05:00 77 17 96 Oxymask 03/16/24 04:51 78 20 97 03/16/24 04:41 78 17 97 03/16/24 04:30 80 21 97 03/16/24 04:21 80 21 113/68 97 03/16/24 04:20 80 21 97 03/16/24 04:10 82 22 97 03/16/24 04:01 84 26 H 97 03/16/24 03:50 87 25 H 96 03/16/24 03:44 103 H 24 03/16/24 03:30 81 19 96 03/16/24 03:20 88 20 98 03/16/24 03:10 80 21 98 03/16/24 03:00 78 20 98 03/16/24 02:50 81 21 98 03/16/24 02:40 80 24 99 03/16/24 02:30 75 27 H 99 03/16/24 02:20 76 18 99 03/16/24 02:10 77 21 99 03/16/24 02:00 76 18 89 L 03/16/24 01:50 76 35 H 03/16/24 01:41 77 25 H 92 Nasal Cannula 03/16/24 01:30 77 31 H 92 03/16/24 01:24 Nasal Cannula 03/16/24 01:24 78 17 97/59 L 94 Nasal Cannula 03/16/24 01:24 Nasal Cannula 03/16/24 01:21 77 26 H 97 03/16/24 01:11 76 22 98 03/16/24 01:01 79 20 97/59 L 99 Nasal Cannula 03/16/24 01:00 78 19 03/16/24 00:50 78 20 100 03/16/24 00:40 76 21 99 03/16/24 00:30 76 21 99 03/16/24 00:20 79 28 H 99 03/16/24 00:10 82 23 100 03/16/24 00:00 82 23 126/64 99 Nasal Cannula 03/15/24 23:57 86 18 03/15/24 23:40 83 27 H 97 03/15/24 23:32 77 24 99 03/15/24 23:32 114/57 L 03/15/24 23:30 81 20 100 03/15/24 23:20 76 22 99 03/15/24 23:10 105 H 28 H 100 03/15/24 23:00 80 22 100 03/15/24 23:00 80 03/15/24 22:51 117/59 L 03/15/24 22:51 82 24 95 03/15/24 22:51 82 18 117/59 L 98 Nasal Cannula 03/15/24 22:40 78 22 100 03/15/24 22:30 74 22 03/15/24 22:20 78 25 H 03/15/24 22:10 80 20 03/15/24 22:00 82 16 03/15/24 21:50 75 22 97 03/15/24 21:40 75 20 97 03/15/24 21:30 78 23 97 03/15/24 21:20 73 14 94 03/15/24 21:10 75 8 L 92 03/15/24 21:00 80 2 L 93 O2 Flow Rate 03/16/24 08:02 4 03/16/24 08:00 4 03/16/24 07:11 03/16/24 06:11 4 03/16/24 06:07 03/16/24 05:50 03/16/24 05:40 4 03/16/24 05:30 03/16/24 05:20 03/16/24 05:10 03/16/24 05:00 4 03/16/24 04:51 03/16/24 04:41 03/16/24 04:30 03/16/24 04:21 03/16/24 04:20 03/16/24 04:10 03/16/24 04:01 03/16/24 03:50 03/16/24 03:44 03/16/24 03:30 03/16/24 03:20 03/16/24 03:10 03/16/24 03:00 03/16/24 02:50 03/16/24 02:40 03/16/24 02:30 03/16/24 02:20 03/16/24 02:10 03/16/24 02:00 03/16/24 01:50 03/16/24 01:41 4 03/16/24 01:30 03/16/24 01:24 4 03/16/24 01:24 4 03/16/24 01:24 4 03/16/24 01:21 03/16/24 01:11 03/16/24 01:01 4 03/16/24 01:00 03/16/24 00:50 03/16/24 00:40 03/16/24 00:30 03/16/24 00:20 03/16/24 00:10 03/16/24 00:00 4 03/15/24 23:57 03/15/24 23:40 03/15/24 23:32 03/15/24 23:32 03/15/24 23:30 03/15/24 23:20 03/15/24 23:10 03/15/24 23:00 03/15/24 23:00 03/15/24 22:51 03/15/24 22:51 03/15/24 22:51 4 03/15/24 22:40 03/15/24 22:30 03/15/24 22:20 03/15/24 22:10 03/15/24 22:00 03/15/24 21:50 03/15/24 21:40 03/15/24 21:30 03/15/24 21:20 03/15/24 21:10 03/15/24 21:00 Critical Care Results & Data Vital Signs (Past 12 Hours) Vital Signs Pulse Pulse Resp BP BP Pulse Ox O2 Del Method 03/16/24 08:02 85 26 H 133/63 90 Nasal Cannula 03/16/24 08:00 Nasal Cannula 03/16/24 07:11 88 03/16/24 06:11 79 17 118/55 L 99 Oxymask 03/16/24 06:07 80 18 99 03/16/24 05:50 77 16 98 03/16/24 05:40 77 19 98 Oxymask 03/16/24 05:30 75 18 97 03/16/24 05:20 77 18 03/16/24 05:10 78 17 03/16/24 05:00 77 17 96 Oxymask 03/16/24 04:51 78 20 97 03/16/24 04:41 78 17 97 03/16/24 04:30 80 21 97 03/16/24 04:21 80 21 113/68 97 03/16/24 04:20 80 21 97 03/16/24 04:10 82 22 97 03/16/24 04:01 84 26 H 97 03/16/24 03:50 87 25 H 96 03/16/24 03:44 103 H 24 03/16/24 03:30 81 19 96 03/16/24 03:20 88 20 98 03/16/24 03:10 80 21 98 03/16/24 03:00 78 20 98 03/16/24 02:50 81 21 98 03/16/24 02:40 80 24 99 03/16/24 02:30 75 27 H 99 03/16/24 02:20 76 18 99 05/22/24 02:10 77 21 99 03/16/24 02:00 76 18 89 L 03/16/24 01:50 76 35 H 03/16/24 01:41 77 25 H 92 Nasal Cannula 03/16/24 01:30 77 31 H 92 03/16/24 01:24 Nasal Cannula 03/16/24 01:24 78 17 97/59 L 94 Nasal Cannula 03/16/24 01:24 Nasal Cannula 03/16/24 01:21 77 26 H 97 03/16/24 01:11 76 22 98 03/16/24 01:01 79 20 97/59 L 99 Nasal Cannula 03/16/24 01:00 78 19 03/16/24 00:50 78 20 100 03/16/24 00:40 76 21 99 03/16/24 00:30 76 21 99 03/16/24 00:20 79 28 H 99 03/16/24 00:10 82 23 100 03/16/24 00:00 82 23 126/64 99 Nasal Cannula 03/15/24 23:57 86 18 03/15/24 23:40 83 27 H 97 03/15/24 23:32 77 24 99 03/15/24 23:32 114/57 L 03/15/24 23:30 81 20 100 03/15/24 23:20 76 22 99 03/15/24 23:10 105 H 28 H 100 03/15/24 23:00 80 22 100 03/15/24 23:00 80 03/15/24 22:51 117/59 L 03/15/24 22:51 82 24 95 03/15/24 22:51 82 18 117/59 L 98 Nasal Cannula 03/15/24 22:40 78 22 100 03/15/24 22:30 74 22 03/15/24 22:20 78 25 H 03/15/24 22:10 80 20 03/15/24 22:00 82 16 03/15/24 21:50 75 22 97 03/15/24 21:40 75 20 97 03/15/24 21:30 78 23 97 03/15/24 21:20 73 14 94 03/15/24 21:10 75 8 L 92 03/15/24 21:00 80 2 L 93 O2 Flow Rate 03/16/24 08:02 4 03/16/24 08:00 4 05/22/24 07:11 03/16/24 06:11 4 03/16/24 06:07 03/16/24 05:50 03/16/24 05:40 4 03/16/24 05:30 03/16/24 05:20 03/16/24 05:10 03/16/24 05:00 4 03/16/24 04:51 03/16/24 04:41 03/16/24 04:30 03/16/24 04:21 03/16/24 04:20 03/16/24 04:10 03/16/24 04:01 03/16/24 03:50 03/16/24 03:44 03/16/24 03:30 03/16/24 03:20 03/16/24 03:10 03/16/24 03:00 03/16/24 02:50 03/16/24 02:40 03/16/24 02:30 03/16/24 02:20 03/16/24 02:10 03/16/24 02:00 03/16/24 01:50 03/16/24 01:41 4 03/16/24 01:30 03/16/24 01:24 4 03/16/24 01:24 4 03/16/24 01:24 4 03/16/24 01:21 03/16/24 01:11 03/16/24 01:01 4 03/16/24 01:00 03/16/24 00:50 03/16/24 00:40 03/16/24 00:30 03/16/24 00:20 03/16/24 00:10 03/16/24 00:00 4 03/15/24 23:57 03/15/24 23:40 03/15/24 23:32 03/15/24 23:32 03/15/24 23:30 03/15/24 23:20 03/15/24 23:10 03/15/24 23:00 03/15/24 23:00 03/15/24 22:51 03/15/24 22:51 03/15/24 22:51 4 03/15/24 22:40 03/15/24 22:30 03/15/24 22:20 03/15/24 22:10 03/15/24 22:00 03/15/24 21:50 03/15/24 21:40 03/15/24 21:30 03/15/24 21:20 03/15/24 21:10 03/15/24 21:00 Lab & Micro Results (Past 24 Hours) RBC 3.82 M/uL (4.20-5.40) L 03/16/24 WBC 7.39 K/ul (4.8-10.8) 03/16/24 Hgb 11.6 g/dl (12.0-16.0) L 03/16/24 Hct 36.9 % (37.0-47.0) L 03/16/24 MCV 96.6 fL (80.0-100.0) 03/16/24 MCH 30.4 pg (25.0-34.0) 03/16/24 MCHC 31.4 g/dL (32.0-36.0) L 03/16/24 RDW Standard Deviation 48.3 fL (36.4-46.3) H 03/16/24 RDW Coefficient of Variation 13.6 % (11.5-14.5) 03/16/24 Plt Count 222 K/uL (130-400) 03/16/24 MPV 9.9 fL (9.4-12.4) 03/16/24 Neutrophils (%) (Auto) 65.2 % 03/15/24 Lymphocytes (%) (Auto) 20.5 % 03/15/24 Monocytes # (Auto) 1.10 K/uL (0.11-0.59) H 03/15/24 Eosinophils # (Auto) 0.08 K/uL (0.00-0.50) 03/15/24 Immature Granulocyte % (Auto) 0.4 % 03/15/24 Neutrophils # (Auto) 6.01 K/uL (1.40-6.50) 03/15/24 Lymphocytes # (Auto) 1.89 K/uL (1.20-3.40) 03/15/24 Monocytes # (Auto) 1.10 K/uL (0.11-0.59) H 03/15/24 Eosinophils # (Auto) 0.08 K/uL (0.00-0.50) 03/15/24 Basophils # (Auto) 0.10 K/uL (0.00-0.20) 03/15/24 Immature Granulocyte # (Auto) 0.04 K/uL (0.01-0.20) 4 Na 137 mmol/L (136-145) 03/16/24 K 3.6 mmol/L (3.5-5.1) 03/16/24 Cl 94 mmol/L (98-107) L 03/16/24 CO2 38 mmol/L (21-32) H 03/16/24 Anion Gap 5 (3-11) 03/16/24 BUN 26 mg/dl (6-23) H 03/16/24 Creatinine 0.89 mg/dl (0.6-1.2) 03/16/24 Estimated GFR ( Amer) 69.5 ml/min 03/16/24 Estimated GFR (Non-Af Amer) 59.9 ml/min 03/16/24 BUN/Creatinine Ratio 29.2 (10-20) H 03/16/24 Glu 101 mg/dl (70-99(Fasting)) H 03/16/24 Ca 8.5 mg/dl (8.6-10.3) L 03/16/24 Total Bilirubin 0.5 mg/dl (0.2-1.0) 03/15/24 AST 20 U/L (13-39) 03/15/24 ALT 13 U/L (7-52) 03/15/24 Alkaline Phosphatase 55 U/L (34-104) 03/15/24 TP 6.8 gm/dl (6.0-8.3) 03/15/24 Albumin 3.9 gm/dl (3.4-5.0) 03/15/24 Globulin 2.9 gm/dl (2.5-4.0) 03/15/24 Albumin/Globulin Ratio 1.3 (0.9-2) 03/15/24 Mg 2.1 mg/dl (1.7-2.4) 03/16/24 04:49 Calcium Level 8.5 mg/dl (8.6-10.3) L 03/16/24 04:49 Diagnostic Findings (Past 24 Hours) Chest X-Ray 03/15/24 14:08 XR chest 1V portable CLINICAL HISTORY: Dyspnea COMPARISON STUDY: Chest radiograph and chest CT September 25, 2022. FINDINGS: Status post median sternotomy. Mild cardiomegaly is unchanged. Asymmetric right hilar mass-like enlargement is present. Left hilum is normal. There is a trace right pleural effusion. No pneumothorax is present. Pulmonary vascular congestion. Left basilar opacity similar to prior exam and favors atelectasis. IMPRESSION: 1. Asymmetric right hilar mass-like enlargement. Although this could be due to pulmonary vessels, a mass or lymphadenopathy cannot be excluded. Chest CT with contrast is recommended. 2. Cardiomegaly with pulmonary vascular congestion. Trace right pleural effusion. 3. Left basilar opacity which likely reflects atelectasis. ACT 112: Positive. There are findings on this exam that require communication between the performing entity and the patient following Patient Test Result Information Act ([place] Act 112) guidelines. Electronically signed by: Nam Delgado M.D. 03/15/2024 2:42 PM Chest CTA 03/15/24 15:02 CHEST CTA for PULMONARY ARTERIES CT DOSE: 727.07 mGy.cm HISTORY: Shortness of breath. TECHNIQUE: Multiaxial CT images of the chest were performed following the in travenous administration of contrast to evaluate the pulmonary arteries. 3D/Maximal intensity projection images were also obtained. Sagittal and coronal reformations were also reviewed. A dose lowering technique was utilized adhering to the principles of ALARA. COMPARISON STUDY: Chest CTA 09/25/2022. FINDINGS: Postoperative changes consistent with graft repair of an ascending thoracic aortic aneurysm. No evidence for an aortic dissection. 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 This remains unchanged. No filling defects within the pulmonary arteries to suggest a pulmonary embolus. However, there is mass effect within the right central pulmonary arteries due to the mediastinal/hilar mass with moderate narrowing of the right upper lobe pulmonary arteries. The heart is normal in size. There is a small right pleural effusion. No pericardial effusion. Limited views of the upper abdomen demonstrate normal liver and spleen. Right anterior diaphragmatic lymphadenopathy measuring up to 2.2 cm consistent with metastatic disease. A few subcentimeter thyroid nodules. These do not meet CT criteria for follow-up. Normal caliber esophagus. There are poststernotomy changes. No suspicious lytic or blastic osseous lesions. Emphysema. No pneumothorax. The right upper lobe bronchus is opacified/obstructed by the right hilar mass. There is also moderate to severe narrowing of the bronchus intermedius due to an endobronchial component of the right hilar mass. This is best seen image 114. The left central airways are patent. There is a 2.1 cm nodule within the left upper lobe abutting the mediastinum on image 153. This likely represents metastatic disease. Biapical pleural-parenchymal nodular densities remain stable and favor scarring. Small focal peripheral consolidation within the right upper lobe anteriorly may represent a postobstructive pneumonitis. There is been interval development of a large right hilar/upper lobe mass which invades into the mediastinum. This results in approximately 75% narrowing of the SVC without evidence for occlusion at this time. This mass extends in to the right paratracheal and subcarinal locations. No left hilar lymphadenopathy. This mass measures approximately 10 x 8 cm and encases multiple right pulmonary arteries and invades into the right upper lobe bronchi and bronchus intermedius. IMPRESSION: 1. No evidence for pulmonary embolus. 2. Interval development of a large right hilar/upper lobe mass measuring 10 x 8 cm described above. This is highly suspicious for a primary bronchogenic malignancy. 3. Right anterior diaphragmatic lymphadenopathy likely represents metastatic disease. 4. There is a 2.1 cm left upper lobe nodule abutting the mediastinum likely representing metastatic disease. 5. Small right pleural effusion which may represent a malignant pleural effusion. 6. This right hilar/upper lobe mass results in mass effect along the right pulmonary arteries as well as invasion into the right upper lobe bronchus and bronchus intermedius as described above. 7. This mass also results in severe narrowing of the SVC without evidence for occlusion at this time. 8. Additional findings as described above. ACT 112: Negative or not required by law. Electronically signed by: Martin Granados M.D. 03/15/2024 5:06 PM I & O Totals 24 Hours 03/15/24 03/16/24 03/17/24 06:59 06:59 06:59 Intake Total 600 / 600 Balance 600 / 600 Cumulative 03/15/24 13:21 thru 03/16/24 04:00 Intake Total 600 Balance 600 RT Ventilator Mngmt (Last Documented) Ventilator Ordered Settings Respiratory Rate 26 03/16/24 08:02 Ventilator - PT Measurements Respiratory Rate 26 PG Care Time/CCT Total # of Minutes Spent Total Time Spent with Patient: Total time spent is greater than 50% in coordination of care (as documented) at patient's floor/unit and/or counseling patient: Coding Level of Care Code 59919 INT INP/OBS CARE 375MIN Diagnoses SVC obstruction I87.1 Suspected malignant neoplasm of lung R68.[address] scan of lung R91.8
--- NOTE | 2024-03-16 09:38 | Hospitalist Progress Note ---
Date of Service March 16, 2024 Assessment & Plan (1) Acute hypoxic respiratory failure: (2) Suspected malignant neoplasm of lung: (3) Myoclonic jerking: (4) Acute kidney injury: (5) Lymphadenopathy, mediastinal: (6) SVC obstruction: (7) Paroxysmal atrial fibrillation: (8) Hypokalemia: (9) Mild right ventricular systolic dysfunction: (10) Postobstructive pneumonia: Plan Ms. Camacho is an 83-year-old female presents to the emergency room with acute hypoxic respiratory failure due to suspected lung malignancy and concern for metastatic disease. Pending bronchoscopy 03/17 to determine treatability #Acute hypoxic respiratory failure #Large mediastinal mass c/f bronchogenic malignancy Biofire negative CT with large mass and associated LAD CT head, abd/pelvis ordered No evidence of post-obstructive pneumonia, discontinued abx per pulm Continue to hold eliquis and ASA given bronchoscopy scheduled 03/17 Pulm on consult, discussing case with med-onc, rad-onc to start treatment contingent on bronchoscopy eval tomorrw Oxy IR for and Tylenol for pain control Wean O2 as able NPO for bronch tomorrow #SVC syndrome #HTN #Nonobstructive CAD #Valvular heart disease Hold diuretics (ustilized prn as op) HOB elevated Continue Amlodipine 2.5 mg daily. Hold asa Continue losartan 100mg daily #Normocytic anemia Anemia labs in am #Atrial fibrillation Stable rate today Hold anticoagulation monitor on tele Continue Amiodarone 200 mg daily Continue Lopressor 50 mg b.i.d.. # Ascending Aortic Aneurysm Dissection s/p Repair CTM, BP control DVT scds pending bronchoscopy, plan to resume DOAC as able NPO midnight Admission and Anticipated Discharge Date Admission Date: March 15, 2024 Subjective NAEO evaluated at bedside, patient eating. Reports chronic back pain and hopes to be "knocked out" for procedure tomorrow Patient understands need for bronchoscopy tomorrow, denies any worsening of symptoms, but denies any marginal improvement Physical Exam Constitutional: WD/WN, vitals as above Respiratory: diminished lung sounds with scattered rhonchi Results & Data Results & Data Vital Signs (Past 12 Hours) Vital Signs Pulse Pulse Resp BP BP Pulse Ox O2 Del Method 03/16/24 08:02 85 26 H 133/63 90 Nasal Cannula 03/16/24 08:00 Nasal Cannula 03/16/24 07:11 88 03/16/24 06:11 79 17 118/55 L 99 Oxymask 03/16/24 06:07 80 18 99 03/16/24 05:50 77 16 98 03/16/24 05:40 77 19 98 Oxymask 03/16/24 05:30 75 18 97 03/16/24 05:20 77 18 03/16/24 05:10 78 17 03/16/24 05:00 77 17 96 Oxymask 03/16/24 04:51 78 20 97 03/16/24 04:41 78 17 97 03/16/24 04:30 80 21 97 03/16/24 04:21 80 21 113/68 97 03/16/24 04:20 80 21 97 03/16/24 04:10 82 22 97 03/16/24 04:01 84 26 H 97 03/16/24 03:50 87 25 H 96 03/16/24 03:44 103 H 24 03/16/24 03:30 81 19 96 03/16/24 03:20 88 20 98 03/16/24 03:10 80 21 98 03/16/24 03:00 78 20 98 03/16/24 02:50 81 21 98 03/16/24 02:40 80 24 99 03/16/24 02:30 75 27 H 99 03/16/24 02:20 76 18 99 03/16/24 02:10 77 21 99 03/16/24 02:00 76 18 89 L 03/16/24 01:50 76 35 H 03/16/24 01:41 77 25 H 92 Nasal Cannula 03/16/24 01:30 77 31 H 92 03/16/24 01:24 Nasal Cannula 03/16/24 01:24 78 17 97/59 L 94 Nasal Cannula 03/16/24 01:24 Nasal Cannula 03/16/24 01:21 77 26 H 97 03/16/24 01:11 76 22 98 03/16/24 01:01 79 20 97/59 L 99 Nasal Cannula 03/16/24 01:00 78 19 03/16/24 00:50 78 20 100 03/16/24 00:40 76 21 99 03/16/24 00:30 76 21 99 03/16/24 00:20 79 28 H 99 03/16/24 00:10 82 23 100 03/16/24 00:00 82 23 126/64 99 Nasal Cannula 03/15/24 23:57 86 18 03/15/24 23:40 83 27 H 97 03/15/24 23:32 77 24 99 03/15/24 23:32 114/57 L 03/15/24 23:30 81 20 100 03/15/24 23:20 76 22 99 03/15/24 23:10 105 H 28 H 100 03/15/24 23:00 80 22 100 03/15/24 23:00 80 03/15/24 22:51 117/59 L 03/15/24 22:51 82 24 95 03/15/24 22:51 82 18 117/59 L 98 Nasal Cannula 03/15/24 22:40 78 22 100 03/15/24 22:30 74 22 03/15/24 22:20 78 25 H 03/15/24 22:10 80 20 03/15/24 22:00 82 16 03/15/24 21:50 75 22 97 03/15/24 21:40 75 20 97 03/15/24 21:30 78 23 97 O2 Flow Rate 03/16/24 08:02 4 03/16/24 08:00 4 03/16/24 07:11 03/16/24 06:11 4 03/16/24 06:07 03/16/24 05:50 03/16/24 05:40 4 03/16/24 05:30 03/16/24 05:20 03/16/24 05:10 03/16/24 05:00 4 03/16/24 04:51 03/16/24 04:41 03/16/24 04:30 03/16/24 04:21 03/16/24 04:20 03/16/24 04:10 03/16/24 04:01 03/16/24 03:50 03/16/24 03:44 03/16/24 03:30 03/16/24 03:20 03/16/24 03:10 03/16/24 03:00 03/16/24 02:50 03/16/24 02:40 03/16/24 02:30 03/16/24 02:20 03/16/24 02:10 03/16/24 02:00 03/16/24 01:50 03/16/24 01:41 4 03/16/24 01:30 03/16/24 01:24 4 03/16/24 01:24 4 03/16/24 01:24 4 03/16/24 01:21 03/16/24 01:11 03/16/24 01:01 4 03/16/24 01:00 03/16/24 00:50 03/16/24 00:40 03/16/24 00:30 03/16/24 00:20 03/16/24 00:10 03/16/24 00:00 4 03/15/24 23:57 03/15/24 23:40 03/15/24 23:32 03/15/24 23:32 03/15/24 23:30 03/15/24 23:20 03/15/24 23:10 03/15/24 23:00 03/15/24 23:00 03/15/24 22:51 03/15/24 22:51 03/15/24 22:51 4 03/15/24 22:40 03/15/24 22:30 03/15/24 22:20 03/15/24 22:10 03/15/24 22:00 03/15/24 21:50 03/15/24 21:40 03/15/24 21:30 Laboratory Results Short CBC 03/15/24 03/16/24 Range/Units 13:55 04:49 WBC 9.22 7.39 (4.8-10.8) K/ul Hgb 12.4 11.6 L (12.0-16.0) g/dl Hct 37.7 36.9 L (37.0-47.0) % Plt Count 248 222 (130-400) K/uL [facility] 03/15/24 03/16/24 13:55 04:49 Sodium 137 137 Potassium 2.9 L 3.6 D Chloride 91 L 94 L Carbon Dioxide 39 H 38 H BUN 38 H 26 H Creatinine 1.54 H 0.89 D Glucose 119 H 101 H Calcium 9.2 8.5 L Liver Function 03/15/24 Range/Units 13:55 Total Bilirubin 0.5 (0.2-1.0) mg/dl AST 20 (13-39) U/L ALT 13 (7-52) U/L Alkaline Phosphatase 55 (34-104) U/L Albumin 3.9 (3.4-5.0) gm/dl Urine 03/15/24 Range/Units 17:35 Urine Color Yellow Urine Appearance Clear (Clear) Urine pH 6.0 (4.5-7.5) Ur Specific [place] 1.034 H (1.000-1.030) Urine Protein Negative (Negative) Urine Glucose (UA) Negative (Negative) Medications Administered Home Medications Medication Instructions Recorded Confirmed Last Taken multivitamin 1 tab PO QAM 06/03/19 03/15/24 03/15/24 amlodipine 2.5 mg tablet 2.5 mg PO QAM 09/23/22 03/15/24 03/15/24 buspirone 10 mg tablet 10 mg PO 09/23/22 03/15/24 03/14/24 calcium carbonate 600 mg-vitamin 1 tab PO 09/23/22 03/15/24 03/14/24 D3 20 mcg (800 unit) chewable tablet (Caltrate 600 plus D) apixaban 5 mg tablet 5 mg PO BID #180 tabs 11/02/22 03/15/24 03/15/24 08:00 aspirin 81 mg tablet,delayed 81 mg PO [facility] 11/13/22 03/15/24 03/15/24 release (Adult Low Dose Aspirin) albuterol sulfate 90 mcg/actuation 2 puff inhalation QID PRN 01/01/23 03/15/24 Unknown aerosol inhaler shortness of breath or wheezing #8.5 grams metoprolol tartrate 50 mg tablet 50 mg PO BID #180 tabs 09/05/23 03/15/24 03/15/24 08:00 amiodarone 200 mg tablet 200 mg PO DAILY #90 tabs 02/08/24 03/15/24 03/15/24 bumetanide 2 mg tablet 3 mg PO DAILY 03/15/24 03/15/24 03/15/24 gabapentin 300 mg capsule 300 mg PO BID 03/15/24 03/15/24 03/15/24 08:00 losartan 100 mg tablet 100 mg PO 03/15/24 03/15/24 03/14/24 potassium chloride 10 mEq 10 meq PO BID 03/15/24 03/15/24 03/15/24 08:00 capsule,extended release Active Medications Generic Name Dose Route Start Last Admin Trade Name Freq PRN Reason Stop Dose Admin Amiodarone HCl 200 mg 03/16/24 09:00 03/16/24 08:04 Amiodarone 200 Mg Tab PO 04/15/24 08:59 200 mg DAILY JOSE Administration Amlodipine Besylate 2.5 mg 03/16/24 09:00 03/16/24 08:03 Amlodipine Besylate 5 Mg Tab PO 04/15/24 08:59 2.5 mg QAM JOSE Administration Buspirone HCl 10 mg 03/15/24 21:00 03/15/24 21:54 Buspirone 5 Mg Tab PO 04/14/24 20:59 10 mg HS JOSE Administration Gabapentin 300 mg 03/15/24 21:00 03/16/24 08:03 Gabapentin 300 Mg Cap PO 04/14/24 20:59 300 mg BID JOSE Administration Sodium Chloride 1,000 mls @ 75 mls/hr 03/15/24 20:34 03/15/24 21:58 Nss IV 04/14/24 20:33 75 mls/hr .[id number] JOSE Administration Losartan Potassium 100 mg 03/15/24 21:00 03/15/24 21:55 Losartan Potassium 50 Mg Tab PO 04/14/24 20:59 100 mg HS JOSE Administration Metoprolol Tartrate 50 mg 03/15/24 21:00 03/16/24 08:03 Metoprolol Tartrate 50 Mg Tab PO 04/14/24 20:59 50 mg BID JOSE Administration Ondansetron HCl 4 mg 03/15/24 20:34 03/15/24 22:54 Ondansetron Inj 2 Mg/Ml 2 Ml Vial IV 04/14/24 20:33 4 mg Q6H PRN Administration Nausea Potassium Chloride 40 meq 03/16/24 00:00 03/16/24 06:35 Potassium Chloride Crtab 20 Meq Tabcr PO 03/16/24 18:01 Not Given Q6 JOSE
[2024-03-16 10:33] LABS: Prothrombin Time 11.2 Seconds (9.0-12.0)
[2024-03-16] MEDS: OPTIRAY 320 100ml IV ONE (15:43)
[2024-03-16] MEDS: oxyCODONE HCL IR 5 MG TAB (IMMEDIATE RELEASE) PO PRN (15:56)
--- NOTE | 2024-03-16 16:10 | CT Scan Report ---
CT head/brain wo/w con CT DOSE: 3111.05 mGy.cm CLINICAL HISTORY: Lung cancer. Assess for metastatic disease. TECHNIQUE: Multiaxial CT images of the head were performed both before and after intravenous administ ration of contrast. A dose lowering technique was utilized adhering to the principles of ALARA. COMPARISON STUDY: None. FINDINGS: Mild mucosal thickening within the ethmoid air cells. There are few opacified right inferio r mastoid air cells. Multiple opacified left mastoid air cells are noted. No suspicious lytic or venus tic osseous lesions. No calvarial fractures. There is mild motion artifact. The ventricles and sulci are within normal limits. There is no mass, hematoma, midline shift, acute infarct. Postcontrast sequ ences show no areas of abnormal enhancement. IMPRESSION: No evidence for intracranial metastatic disease. ACT 112: Negative or not required by law. Electronically signed by: Martin Granados M.D. 03/16/2024 4:08 PM
--- NOTE | 2024-03-16 16:40 | Electrocardiogram Report ---
Test Reason : Blood Pressure : / mmHG Vent. Rate : 065 BPM Atrial Rate : 065 BPM P-R Int : 194 ms QRS Dur : 100 ms QT Int : 452 ms P-R-T Axes : 054 043 101 degrees QTc Int : 470 ms Normal sinus rhythm Septal infarct , age undetermined Marked ST abnormality, possible anterior subendocardial injury Abnormal ECG When compared with ECG of 15-MAR-2024 13:48, No significant change was found Confirmed by Max Jane ([id number]) on 03/16/2024 4:40:01 PM Referred By: REFERRED SELF Confirmed By:Max Jane
--- NOTE | 2024-03-16 19:24 | CT Scan Report ---
CT OF THE ABDOMEN AND PELVIS WITH CONTRAST CLINICAL HISTORY: Evaluate for metastatic disease. COMPARISON STUDY: CTA of the abdomen and pelvis September 25, 2022. Abdominal ultrasound June 22 17. TECHNIQUE: Following IV administration of 89 mL of Optiray, axial images of the abdomen and pelvis we re obtained from the lung bases to the proximal femurs. Images were reviewed in the axial, sagittal, and coronal planes. IV contrast was administered without complication. Automated exposure control wa s utilized for the study. A dose lowering technique was utilized adhering to the principles of ALARA . Oral contrast was administered. FINDINGS: A small right pleural effusion is. A 2.8 x 1.9 cm right cardiophrenic angle lymph node on i mage 42 of 361 is present. There are no suspicious hepatic lesions. 9 mm lateral segment hypodense he patic lesion is unchanged and CTA of September 25, 2022. This is benign. Spleen, kidneys and pancreas a re unremarkable with exception of the left lower pole renal cyst. Left adrenal nodule measures 1.9 cm . Although suboptimally assessed on prior exam, this was likely present on CT of September 25, 2022. Mi ld nodularity of the right adrenal gland is also likely similar to prior CTA. The infrarenal abdomina l aorta is ectatic, measuring 2.9 cm. There is extensive aortoiliac calcified plaque. No abdominal or pelvic lymphadenopathy is present. Prominent left retroperitoneal vessels are unchanged. No evidence for a bowel obstruction. The caliber and wall thickness of small and large bowel are normal. Postope rative findings within the spine are incidentally noted. No suspicious lesions are identified within the visualized skeletal structures. IMPRESSION: 1. No definite evidence for metastatic disease within the abdomen or pelvis. 2. 1.9 cm left adrenal nodule. This was likely present on CT of September 25, 2022. Although likely mandi ign, this could be assessed with a PET/CT as indicated. 3. Pathologic right cardiophrenic angle lymph node. Small right pleural effusion. A malignant effusio n cannot be excluded. ACT 112: Negative or not required by law. Electronically signed by: Nam Delgado M.D. 03/16/2024 7:22 PM
[2024-03-16] MEDS: POTASSIUM CHLORIDE / WTR 10 MEQ/100 ML PLCT IV SCH (20:42)
[2024-03-16] MEDS: PROMETHAZINE HCL 12.5 MG in SODIUM CHLORIDE 0.9% 50 ML IV STA (21:16)
[2024-03-16] MEDS: OPTIRAY 320 125ml IV ONE (22:16)
--- NOTE | 2024-03-16 22:40 | CT Scan Report ---
Exam(s): CT HEAD Without Contrast EXAM: CT Head Without Intravenous Contrast CLINICAL HISTORY: Reason for exam: CVA. TECHNIQUE: Axial computed tomography images of the head/brain without intravenous contrast. CTDI is 45.33 mGy and DLP is 677.48 mGy-cm. Automated exposure control was utilized for the study. A dose lowering technique was utilized adhering to the principles of ALARA. COMPARISON: 03/16/2024 FINDINGS: Brain: No hemorrhage, extra-axial fluid collection, mass effect, or edema. Ventricles: Unremarkable. Bones/joints: Unremarkable. No fracture. Soft tissues: Unremarkable. Sinuses: No acute sinusitis. Mastoid air cells: Left mastoid effusion. IMPRESSION: 1. No acute intracranial abnormality. 2. Left mastoid effusion. Electronically signed by: Tom Nguyen MD 03/16/24 22:39 PM
--- NOTE | 2024-03-16 22:42 | CT Scan Report ---
Exam(s): CTA HEAD With Contrast IV Amt: 116 ml opti 320 EXAM: CT Angiography Head With Intravenous Contrast CLINICAL HISTORY: Reason for exam: CVA?. TECHNIQUE: Axial computed tomographic angiography images of the head with intravenous contrast. CTDI is 58.49 mGy and DLP is 624.41 mGy-cm. Automated exposure control was utilized for the study. A dose lowering technique was utilized adhering to the principles of ALARA. MIP reconstructed images were created and reviewed. CONTRAST: Patient received 116 ml opti 320 of IV contrast COMPARISON: No relevant prior studies available. FINDINGS: Right internal carotid artery: No limiting atherosclerotic calcifications within the right ICA. No flow-limiting stenosis. No aneurysm. Right anterior cerebral artery: Unremarkable. No occlusion or significant stenosis. No aneurysm. Right middle cerebral artery: Unremarkable. No occlusion or significant stenosis. No aneurysm. Right posterior cerebral artery: Unremarkable. No occlusion or significant stenosis. No aneurysm. Right vertebral artery: Unremarkable as visualized. Left internal carotid artery: Atherosclerotic calcifications within the left ICA. No flow-limiting stenosis. No aneurysm. Left anterior cerebral artery: Unremarkable. No occlusion or significant stenosis. No aneurysm. Left middle cerebral artery: Unremarkable. No occlusion or significant stenosis. No aneurysm. Left posterior cerebral artery: Unremarkable. No occlusion or significant stenosis. No aneurysm. Left vertebral artery: No flow-limiting atherosclerotic calcifications within the left vertebral artery. Basilar artery: Unremarkable. No occlusion or significant stenosis. No aneurysm. IMPRESSION: No acute findings in the arteries of the head/brain. Electronically signed by: Tom Nguyen MD 03/16/24 22:41 PM
--- NOTE | 2024-03-16 22:44 | CT Scan Report ---
Exam(s): CTA NECK With Contrast IV Amt: 116 ml opti 320 EXAM: CT Angiography Neck With Intravenous Contrast CLINICAL HISTORY: Reason for exam: CVA?. TECHNIQUE: Routine carotid CT angiography protocol was performed with intravenous contrast. NASCET criteria using the distal ICAs for comparison were used for evaluation of stenoses. CTDI is 64.34 mGy and DLP is 961.59 mGy-cm. Automated exposure control was utilized for the study. A dose lowering technique was utilized adhering to the principles of ALARA. MIP reconstructed images were created and reviewed. CONTRAST: Patient received 116 ml opti 320 of IV contrast COMPARISON: None. FINDINGS: VASCULATURE: Right common carotid artery: Unremarkable. No occlusion or significant stenosis. No dissection. Right internal carotid artery: Atherosclerotic calcifications at the right carotid bulb. No flow-limiting stenosis. Right external carotid artery: Severe stenosis at the ostia of the right external carotid artery. Right vertebral artery: Unremarkable. No occlusion or significant stenosis. No dissection. Left common carotid artery: Unremarkable. No occlusion or significant stenosis. No dissection. Left internal carotid artery: Non flow-limiting atherosclerotic calcifications within the proximal left ICA. Left vertebral artery: Unremarkable. No occlusion or significant stenosis. No dissection. NECK: Bones/joints: Unremarkable. No acute fracture. Soft tissues: Unremarkable. Lung apices: Nodular airspace opacities in the upper lobes and a small right pleural effusion. CAROTID STENOSIS REFERENCE USING NASCET CRITERIA: % ICA stenosis = (1 - narrowest ICA diameter/diameter of distal cervical ICA) x 100. Mild - <50% stenosis. Moderate - 50-69% stenosis. Severe - 70-94% stenosis. Near occlusion - 95-99% stenosis. Occluded - 100% stenosis. IMPRESSION: 1. No flow-limiting stenosis. 2. Nodular airspace opacities in the upper lobes and a small right pleural effusion. Electronically signed by: Tom Nguyen MD 03/16/24 22:43 PM
[2024-03-16] MEDS ORDERED: PHARMACIST DISCHARGE MED REC CONSULT PRN (23:06)
[2024-03-16] MEDS: ACETAMINOPHEN 325 MG TAB PO PRN (23:21)
[2024-03-16] MEDS: ATORVASTATIN 40 MG TAB PO STA (23:21)
[2024-03-16] MEDS: SODIUM CHLORIDE 0.9% 1,000 ML IV SCH (23:22)
[2024-03-17 06:32] LABS: Basophils # (auto) 0.04 K/uL (0.00-0.20); Basophils % (auto) 0.5 %; Eosinophils # (auto) 0.05 K/uL (0.00-0.50); Eosinophils % (auto) 0.6 %; Hematocrit (blood only) 34.2 % (37.0-47.0); Immature Granulocytes # (auto) 0.02 K/uL (0.01-0.20); Immature Granulocytes % (auto) 0.3 %; Lymphocytes # (auto) 1.16 K/uL (1.20-3.40); Mean Corpuscular Hemoglobin 30.3 pg (25.0-34.0); Mean Corpuscular Hgb Conc 32.2 g/dL (32.0-36.0); Mean Corpuscular Volume 94.2 fL (80.0-100.0); Mean Platelet Volume 9.8 fL (9.4-12.4); Monocytes # (auto) 0.83 K/uL (0.11-0.59); Monocytes % (auto) 10.8 %; Neutrophils # (auto) 5.62 K/uL (1.40-6.50); Neutrophils % (auto) 72.8 %; Platelet Count 195 K/uL (130-400); RDW Standard Deviation 44.8 fL (36.4-46.3); Red Blood Count 3.63 M/uL (4.20-5.40); White Blood Count 7.72 K/ul (4.8-10.8)
[2024-03-17 07:19] LABS: Calcium 8.7 mg/dl (8.6-10.3); Magnesium 1.8 mg/dl (1.7-2.4); Potassium 3.8 mmol/L (3.5-5.1)
[2024-03-17 07:25] LABS: BUN Creatinine Ratio 18.8 (10-20); Chol HDL Ratio 3.1 (0-5); Creatinine Clr Calc Pharmacy 62.3 ml/min; Est GFR (African American) 95.6 ml/min; Est GFR (Non-African American) 82.5 ml/min; Phosphorus 2.6 mg/dl (2.5-4.9)
--- NOTE | 2024-03-17 07:25 | Communication Note ---
Date of Service: March 17, 2024 Last night around 9:45pm flor loly was called on Sheri Oliva as she complained of blurred vision and was having some left facial droop and left glen ed weakness. Saw the patient. By now patient says her vision improved. can move upper extremities ok but could not lift and hold left lower extremity. could tell her name and knows she is in hospital. Speech seemed ok. Last well knows was 15minutes prior to calling flor salcido. STroke alert was called. By the time patient came back from ct scan she seemed back to baseline. Can lift and hold lower extremities. speech mostly clear and alert and oriented x 3. vitas were ok. [place] tele stroke neurology evaluated the patient and as her symptoms improved thought possibly she might had TIA. recommended high intensity statin and to start on aspirin as soon as possible after bronchoscopy today.Ordered neuro checks and stroke protocol and neurology consult.Notified am providers.Son was notified.
--- NOTE | 2024-03-17 08:04 | Pre Anesthesia Assessment ---
Date of Service March 17, 2024 Pre Sedation Assessment Vital Signs Temp Pulse Pulse Resp BP BP Pulse Ox 03/17/24 03:53 36.3 C L 55 L 14 129/81 97 03/16/24 23:05 36.7 C 84 20 152/69 H 92 03/16/24 22:02 87 03/16/24 21:45 36.8 C 84 24 160/65 H 98 03/16/24 21:00 03/16/24 19:15 36.7 C 75 18 132/58 L 96 03/16/24 18:00 03/16/24 16:00 75 03/16/24 14:00 36.5 C 73 16 147/80 H 97 03/16/24 12:00 68 19 93 03/16/24 11:02 68 20 96 03/16/24 10:00 65 22 95 03/16/24 09:00 64 21 O2 Del Method O2 Flow Rate 03/17/24 03:53 Nasal Cannula 3.5 03/16/24 23:05 Nasal Cannula 2.0 03/16/24 22:02 03/16/24 21:45 Nasal Cannula 4 03/16/24 21:00 Nasal Cannula 4 03/16/24 19:15 Nasal Cannula 4.0 03/16/24 18:00 Nasal Cannula 4 03/16/24 16:00 03/16/24 14:00 Nasal Cannula 4 03/16/24 12:00 03/16/24 11:02 03/16/24 10:00 03/16/24 09:00 Pre-Sedation Airway Assessment Smoking Status: Never smoker Hx Sleep Apnea: No Mallampati Class: III ASA: [id number] NPO Status Date of Last Intake of Fluids: 03/13/24 Date of Last Intake of Solid Food: 03/13/24 Notes The planned sedation has been discussed with the patient. Informed Consent was obtained. I have identified the patient, determined the appropriateness of sedation and have assessed the patient immediately prior to the procedure. All medicine(s) and interventions are by my order.
--- NOTE | 2024-03-17 08:04 | History & Physical Bridge Note ---
Date of Service March 17, 2024 History & Physical Bridge Note I have examined the patient, reviewed the History & Physical and in the interval since the performance of the History & Physical I have noted the following changes of clinical significance: no changes noted
[2024-03-17 08:19] LABS: Estimated Average Glucose 131 mg/dl; Hemoglobin A1C 6.2 % (4.5-5.6)
--- NOTE | 2024-03-17 08:32 | Post Anesthesia Assessment ---
Date of Service March 17, 2024 Post Sedation Assessment Vital Signs Temp Pulse Pulse Resp BP BP Pulse Ox 03/17/24 08:25 72 14 108/52 L 89 L 03/17/24 08:20 69 14 124/52 L 89 L 03/17/24 08:15 69 14 120/55 L 82 L 03/17/24 08:10 68 14 149/58 H 87 L 03/17/24 08:07 14 L 128/58 L 96 03/17/24 03:53 36.3 C L 55 L 14 129/81 97 03/16/24 23:05 36.7 C 84 20 152/69 H 92 03/16/24 22:02 87 03/16/24 21:45 36.8 C 84 24 160/65 H 98 03/16/24 21:00 03/16/24 19:15 36.7 C 75 18 132/58 L 96 03/16/24 18:00 03/16/24 16:00 75 03/16/24 14:00 36.5 C 73 16 147/80 H 97 03/16/24 12:00 68 19 93 03/16/24 11:02 68 20 96 03/16/24 10:00 65 22 95 03/16/24 09:00 64 21 O2 Del Method O2 Flow Rate 03/17/24 08:25 Oxymask 15 03/17/24 08:20 Oxymask 15 03/17/24 08:15 Oxymask 15 03/17/24 08:10 Oxymask 15 03/17/24 08:07 Oxymask 4 03/17/24 03:53 Nasal Cannula 3.5 03/16/24 23:05 Nasal Cannula 2.0 03/16/24 22:02 03/16/24 21:45 Nasal Cannula 4 03/16/24 21:00 Nasal Cannula 4 03/16/24 19:15 Nasal Cannula 4.0 03/16/24 18:00 Nasal Cannula 4 03/16/24 16:00 03/16/24 14:00 Nasal Cannula 4 03/16/24 12:00 03/16/24 11:02 03/16/24 10:00 03/16/24 09:00 Recovery Score Activity: Moves 4 extremities Respiration: Deep Breath/Cough Circulation: +/-20% PreAnes Value Consciousness: Arouseable (by name) Oxygen Saturation: > 92% On Room Air Post Anesthesia Score: 9 Discharge Sedation Level of Care: Fast Track Phase II Post Sedation Plan On clinical assessment, the patient appears to have tolerated the sedation without complications. Patient is recovering as anticipated. Patient will continue to be monitored by nursing and may be discharged when sedation discharge criteria are met per below protocol. Upon Completions of procedure up to 15 minutes continue every 5 minute vital signs and the P.A.R. score; then discharge to a Phase I or Fast Track to Phase II per the following guidelines: * Discharge Patient to appropriate Phase II area if PAR is 8 or greater or return to pre- procedure baseline. The post - procedure orders will be as directed. * If PAR score is less than 8 or not return to pre-procedure baseline then patient will follow Phase I monitoring till PAR is reached for Phase II. The Phase I may be done in procedure room or may call to secure a Phase I area. * If naloxone or flumazenil are used for reversal, hold in Phase I for continued monitoring from when last reversal dose was given for a minimum of 60 minutes or longer pending the nurse and/or physician discretion of patient condition before discharge to Phase II. Please call the Sedation Physician to re-evaluate and complete post-note for discharge to Phase II area. Do NOT discharge from procedure sedation or Phase 1 until post- sedation evaluation note is complete by procedure /sedation MD Sedation Discharge Instructions to be given to the patient at discharge to home.
--- NOTE | 2024-03-17 08:37 | Procedure Note ---
Procedure Note: Bronchoscopy Procedure Procedure: Fiberoptic bronchoscopy Endobronchial ultrasound evaluation during bronchoscopy Endobronchial ultrasound with transbronchial needle aspiration of lymph nodes, single station Conscious sedation Provider: Bird Banerjee MD Consent: Signed by patient and timeout verified prior to procedure. Indication: Abnormal CT scan Sedation start: 801 Sedation end: 825 Conscious sedation: 4 mg Versed, 100 mcg fentanyl, topical lidocaine per RT protocol Estimated blood loss: 5 mL Procedure: Patient was brought to the bronchoscopy suite. Consent was verified. Appropriate radiographic studies had been reviewed prior to the procedure. Standard monitoring was applied. Oxygen was administered. After topical anesthesia of the airways per respiratory therapy protocol, the fiberoptic scope was advanced through the oropharynx via the bite-block. Oropharynx was unremarkable. Vocal cords were visualized and were normal in function and appearance. Topical anesthesia of the cords was achieved with instillation of lidocaine through the scope. Scope was then passed through the vocal cords. The trachea was slightly towards. Main miguel was splayed. Anesthesia of the lower airways was achieved with instillation of lidocaine through the scope. A sequential and systematic examination of the lower airways was conducted. The right-sided airways were sequentially examined. Right mainstem bronchus was patent however the right upper lobe was completely occluded by tumor. Tumor extended circumferentially into the bronchus intermedius occluding about 40% of the lumen but I was able to pass the scope distally. Mucosa was very friable. Left-sided airways were patent with normal anatomic configuration and the mucosa appeared normal. Fiberoptic bronchoscope was then removed from the airway and the endobronchial ultrasound advanced via the bite-block. It was passed through the vocal cords. He was directed to the level 7 lymph node station. There was large lymph node identified. 6 passes under ultrasound guidance were taken with rapid onsite cytology confirming malignancy, favor non-small cell carcinoma. At that point time the patient was having oxygen desaturations into the 80% range despite facemask. Nasal cannula was applied in addition to the facemask which improved oxygen saturations to about 89% but it was deemed that we had adequate cellular material and I elected to not pursue additional biopsies. Scope was withdrawn to the level of the miguel. Hemostasis was confirmed. The bronchoscope was then removed from the airways. The patient tolerated the procedure well without obvious complication. Patient was returned to the recovery room. Impression: 1. Grossly abnormal inspection bronchoscopy with tumor obstructing the right upper lobe and extending into the bronchus intermedius. 2. Extensive adenopathy within level 7 station status post EBUS TBNA with rapid onsite cytology confirming malignancy. Await final path MNP Procedure Codes (Charges) Pulmonary/Thoracic Procedure 1: Pulmonary and Thoracic: 10155 Bronchoscopy, w/EBUS 1 or 2 mediastinal Sedation/Anesthesia Procedure 2: Sedation/Anesthesia: 00068 Mod Sedation by the same physician;Init15 Min Child Age 5 & Up Procedure 3: Sedation/Anesthesia: 06944 Mod Sedation by the same physician; Ea [id number] Minutes
--- NOTE | 2024-03-17 08:46 | Pulmonology Progress Note ---
Date of Service March 17, 2024 Assessment & Plan (1) SVC obstruction: (2) Suspected malignant neoplasm of lung: (3) Abnormal CT scan of lung: Plan Impression: 83-year-old female with extensive tobacco history with malignancy identified occluding the right upper lobe takeoff and extending into the bronchus intermedius with N2 involvement on EBUS biopsy. Recommendations: 1. Await final path. 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 Await final path. Given these findings and SVC syndrome will consult radiation oncology for palliative XRT. Will also place consult to medical oncology. 2. Hold Eliquis for 24 hours. Can resume diet in 2 to 4 hours. 3. Workup of the patient's neurological symptoms per primary service. Patient is unclear what direction she would take in the event of clinical worsening. Would be highly appropriate to engage palliative care and discuss long-term management and goals of therapy for this elderly patient. Pulmonary will sign off at this point in time. Feel free to contact us with questions or concerns Admission and Anticipated Discharge Date Admission Date: March 15, 2024 Subjective Patient seen and examined. EMR reviewed. The patient had no new complaints this morning. She was evaluated as a code purple last night due to left facial droop and left-sided weakness. CT of the head was unrevealing. Telestroke evaluation did not recommend appropriately tPA. Her neurodeficits have resolved. CT of the abdomen and pelvis demonstrated no acute abnormalities. She is n.p.o. for bronchoscopy. Bronchoscopy was completed demonstrating exophytic mass in the right upper lobe extending into the bronchus intermedius. Biopsies were taken confirming malignancy, favor non-small cell carcinoma. Await final path. Review of Systems 2 Review of Systems: All systems reviewed & are unremarkable except as noted in Subjective Physical Exam 2 ENMT: Mallampati Class: III Neck: trachea midline, no thyromegaly Respiratory: + tachypneic; no respiratory distress Auscultation: + rhonchi Cardiovascular: RRR, no murmur, no edema Gastrointestinal (Abdomen): normal bowel sounds, soft, nontender, no hepatosplenomegaly Musculoskeletal: Extremities: extremities normal to inspection Skin: no rashes, warm and dry Lymphatic: no cervical lymphadenopathy Results & Data Results & Data Vital Signs (Past 12 Hours) Vital Signs Temp Pulse Pulse Resp BP BP Pulse Ox 03/17/24 08:25 72 14 108/52 L 89 L 03/17/24 08:20 69 14 124/52 L 89 L 03/17/24 08:15 69 14 120/55 L 82 L 03/17/24 08:10 68 14 149/58 H 87 L 03/17/24 08:07 14 L 128/58 L 96 03/17/24 07:35 36.5 C 71 14 171/68 H 93 03/17/24 03:53 36.3 C L 55 L 14 129/81 97 03/16/24 23:05 36.7 C 84 20 152/69 H 92 03/16/24 22:02 87 03/16/24 21:45 36.8 C 84 24 160/65 H 98 03/16/24 21:00 O2 Del Method O2 Flow Rate 03/17/24 08:25 Oxymask 15 03/17/24 08:20 Oxymask 15 03/17/24 08:15 Oxymask 15 03/17/24 08:10 Oxymask 15 03/17/24 08:07 Oxymask 4 03/17/24 07:35 Nasal Cannula, Oxymask 03/17/24 03:53 Nasal Cannula 3.5 03/16/24 23:05 Nasal Cannula 2.0 03/16/24 22:02 03/16/24 21:45 Nasal Cannula 4 03/16/24 21:00 Nasal Cannula 4 Laboratory Results 03/17/24 05:48 03/17/24 05:48 PG Care Time/CCT Total # of Minutes Spent Total Time Spent with Patient: Total time spent is greater than 50% in coordination of care (as documented) at patient's floor/unit and/or counseling patient: Coding Level of Care Code 50478 SUB INP/OBS CARE 2/35MIN Diagnoses SVC obstruction I87.1 Suspected malignant neoplasm of lung R68.[address] scan of lung R91.8
--- NOTE | 2024-03-17 08:57 | Radiation OncologyConsultation ---
Date of Consultation March 17, 2024 Assessment & Plan (1) Lung cancer: Plan Assessment: Ms. Camacho is an 83-year-old female with a history of right breast cancer treated with surgery and radiation therapy in 1986. The patient now presents with very locally advanced lung cancer which is causing SVC syndrome. The patient did undergo a bronchoscopy with EBUS FNA of the subcarinal lymph node which does reveal a preliminary diagnosis of lung cancer and further staining will clarify whether it is small cell or non-small cell cancer. We have been asked to evaluate the patient regarding the role of palliative radiation therapy. Recommendations: 1. Palliative radiation therapy. 10 fractions. IMRT/IGRT or 3DCRT/IGRT will be utilized to minimize potential overlap from previous course of radiation therapy. I have explained to the patient that there will be potentially significant overlap from her previous course of radiation therapy from 1986 and that might increase the risk of all side effects and potential late complications from radiation therapy. I did also explain to her that given the long interval that hopefully the risk is lower and overestimated in her case. 2. If the diagnosis of cancer comes back as small cell lung carcinoma, radiation therapy can be stopped and chemotherapy can be initiated with consideration for future chemoradiation therapy or consolidative chest radiation therapy after the completion of systemic therapy. This plan was discussed with Dr. Lyle. At the request of the patient, I have spoken to her son, Timur Camacho and explained this information to him as well. All of his questions were answered as well. Plan: 1. CT simulation for treatment planning for radiation therapy. 2. Given history of previous radiation therapy, plan will be to deliver first fraction of treatment tomorrow or next Thursday depending on treatment technique and planning required. If patient has small cell cancer diagnosis, radiation therapy would held and chemotherapy would be initiated. 3. Palliative care consultation in the inpatient or outpatient setting could be beneficial. 4. Medical oncology consultation input appreciate. Inpatient consultation order has been placed. 5. Continue all care as per primary medical service and pulmonary medicine. 6. Patient and family encouraged to call us with any further questions or concerns. Rationale/Explanation of Treatment: I have explained the indications, alternatives, benefits, risks and side effects of radiation therapy. I have explained the most common side effects which include but are not limited to skin erythema, skin break down, pulmonary fibrosis, adhesion development, radiation pneumonitis, spinal cord damage, brachial plexus damage, rib fracture, heart failure and heart disease, esophagitis, development of fistula, fatigue and development of secondary malignancy. I have explained the CT simulation process and treatment planning. I explained what to expect before, during and after treatment on a regular basis. I have explained to the patient that there is an increased risk of overlap from the previous course of radiation therapy and the current course of radiation th erapy which can increase the risk of all acute and late side effects of radiation therapy. History of Present Illness Attending Physician: Deanna Pierce MD History of Present Illness 03/15/2024. Patient presents to emergency room with shortness of breath swelling in face and neck. Patient admitted to hospital for further workup and evaluation. 03/15/2024. CTA chest. IMPRESSION: 1. No evidence for pulmonary embolus. 2. Interval development of a large right hilar/upper lobe mass measuring 10 x 8 cm described above. This is highly suspicious for a primary bronchogenic malignancy. 3. Right anterior diaphragmatic lymphadenopathy likely represents metastatic disease. 4. There is a 2.1 cm left upper lobe nodule abutting the mediastinum likely representing metastatic disease. 5. Small right pleural effusion which may represent a malignant pleural effusion. 6. This right hilar/upper lobe mass results in mass effect along the right pulmonary arteries as well as invasion into the right upper lobe bronchus and bronchus intermedius as described above. 7. This mass also results in severe narrowing of the SVC without evidence for occlusion at this time. 8. Additional findings as described above. 03/15/2024. CT of abdomen/pelvis. IMPRESSION: 1. No definite evidence for metastatic disease within the abdomen or pelvis. 2. 1.9 cm left adrenal nodule. This was likely present on CT of September 25, 2022. Although likely benign, this could be assessed with a PET/CT as indicated. 3. Pathologic right cardiophrenic angle lymph node. Small right pleural effusion. A malignant effusion cannot be excluded. 03/16/2024. Pulmonary consultation. Dr. Banerjee. Recommendation is to obtain tissue diagnosis to further guide treatment and management. 03/17/2024. Bronchoscopy with endobronchial ultrasound and FNA biopsy. Preliminary results show non-small cell lung carcinoma. 03/17/2024. Radiation oncology consultation. Recommendation is for palliative radiation therapy to mediastinal mass to relieve SVC syndrome. Patient will be down for CT simulation either today or tomorrow. Allergies Allergy/AdvReac Type Severity Reaction Status Date / Time azithromycin Allergy Severe throat Verified 03/15/24 16:38 swelling sulfamethoxazole Allergy Intermediate Hives Verified 03/15/24 16:38 trimethoprim Allergy Intermediate Hives Verified 03/15/24 16:38 penicillin V Allergy Mild arm Verified 03/15/24 16:38 swelling with PCN (tolerates oral PCN/Amoxicillin) Home Medications Medication Instructions Recorded Confirmed Type multivitamin 1 tab PO QAM 06/03/19 03/15/24 History amlodipine 2.5 mg tablet 2.5 mg PO QAM 09/23/22 03/15/24 History buspirone 10 mg tablet 10 mg PO HS 09/23/22 03/15/24 History calcium carbonate 600 mg-vitamin 1 tab PO HS 09/23/22 03/15/24 History D3 20 mcg (800 unit) chewable tablet (Caltrate 600 plus D) apixaban 5 mg tablet 5 mg PO BID #180 tabs 11/02/22 03/15/24 Rx aspirin 81 mg tablet,delayed 81 mg PO QAM 11/13/22 03/15/24 History release (Adult Low Dose Aspirin) albuterol sulfate 90 mcg/actuation 2 puff inhalation QID PRN 01/01/23 03/15/24 Rx aerosol inhaler shortness of breath or wheezing #8.5 grams metoprolol tartrate 50 mg tablet 50 mg PO BID #180 tabs 09/05/23 03/15/24 Rx amiodarone 200 mg tablet 200 mg PO DAILY #90 tabs 02/08/24 03/15/24 Rx bumetanide 2 mg tablet 3 mg PO DAILY 03/15/24 03/15/24 History gabapentin 300 mg capsule 300 mg PO BID 03/15/24 03/15/24 History losartan 100 mg tablet 100 mg PO HS 03/15/24 03/15/24 History potassium chloride 10 mEq 10 meq PO BID 03/15/24 03/15/24 History capsule,extended release Patient History Medical History (Updated 03/17/24 @ 12:26 by Peyton Leiva MD) Slurring of speech Abdominal aortic ectasia Severe mitral regurgitation Moderate left ventricular systolic dysfunction Alveolar emphysema of lung Hypertension Dyslipidemia Mild coronary artery disease normal coronary arteries with mild luminal irregularities per 2011 cardiac cath Moderate to severe mitral regurgitation Severe per 11/2022 ECHO Seasonal allergies Anxiety Chronic back pain Breast cancer right, XRT in 1986 Aortic aneurysm s/p repair (2010), follows with MNP cardio Osteoporosis, unspecified Post-traumatic arthritis of ankle Surgical History (Updated 03/15/24 @ 18:17 by Thai Gray DO) 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 Status post open reduction with internal fixation (ORIF) of fracture of ankle Right ankle ORIF: 06/03/20: Grade view 1, MAC#3, ETT 7 at [facility] Status post thoracic aortic aneurysm repair with a stent + "blow out patch" (2010) [facility] History of cardioversion 10/2022 [facility] S/P ankle arthrodesis H/O decompression of ulnar nerve right History of carpal tunnel release right and left History of cataract surgery bilateral History of tonsillectomy History of appendectomy History of colonoscopy Hx of lumpectomy right breast with radiation History of bilateral tubal ligation H/O lumbar discectomy with hardware/cage S/P hardware removal Left wrist Status post open reduction and internal fixation (ORIF) of fracture Left wrist History of cardiac cath [place], no stents; f/u dr javed, [place] History of open reduction and internal fixation (ORIF) procedure left wrist Family History Mother Heart disease Other No family history of adverse response to anesthesia Social History Smoking Status: Never smoker Tobacco Type: Cigarettes Cigarettes Per Day: QUIT >12 YRS AGO; Second Hand Exposure: No; Do You Dip or Chew Tobacco: No; Hx Alcohol Use: No Hx Substance Use: No Preferred Language: Belgian Communication Ability: Effective Car Manager Required: No Beliefs That Will Affect Care: None marital status: / Current Living Situation: Family Current Living Situation Comment: son, & grandson Feels Safe at Home: Yes Assistive Devices: Brace/Splint/Immobilizer and Cane Radiation History Diagnosis: 1986. Right breast cancer. 2023. Right Lung. NSCLC. Preliminary diagnosis. Treatment: 1986. Radiation therapy for right breast cancer. [facility]. Review of Systems Review of Systems: Swelling in face and neck. Shortness of breath. Physical Exam Constitutional: WD/WN, vitals as above ENMT: Facial swelling/edema. Neck: Bilateral swelling. Respiratory: Auscultation: + diminished lung sounds Skin: + erythema Psychiatric: A+Ox3, euthymic affect Time Spent Attending I spent 15 minutes in preparation for this consultation including reviewing all the clinical records, reviewing laboratory studies, pathology reports and imaging results. I spent 30 minutes with direct face to face interaction with the patient and/or family including performing a physical exam and answering all questions. I spent 20 minutes documenting this patient's visit. I spent 10 minutes speaking with the following providers regarding this patient's care: Dr. Lyle. PG Care Time/CCT Total # of Minutes Spent Total Time Spent with Patient: Total time spent is greater than 50% in coordination of care (as documented) at patient's floor/unit and/or counseling patient: [place] [address] IN/OBS CONSULT LVL 5,80M Patient Type New History Problem Focused Exam Problem Focused Medical Decision Making Moderate Complexity Diagnoses Lung cancer C34.90
[2024-03-17] MEDS: LORazepam 1 MG/1 ML SYR ED Inj Use ONE (09:23)
[2024-03-17] MEDS: ALBUT/IPRATROP 3MG/0.5MG NEB 3 ML VIAL ONE (09:23)
[2024-03-17] MEDS: LORazepam 0.5 MG in SYRINGE 0.25 ML IV STA (09:23)
[2024-03-17] MEDS: MIDAZOLAM HCL 5 MG/ML 1 ML VIAL ONE (09:25)
[2024-03-17] MEDS: fentaNYL citrate PF 100 MCG/2 ML VIAL ONE ×2 (09:25)
--- NOTE | 2024-03-17 09:30 | XRay Report ---
XR chest 1V portable CLINICAL HISTORY: resp distress TECHNIQUE: Single frontal radiograph of the chest was obtained. Comparison: Comparison is made to chest radiograph 03/15/[address] chest 03/15/2024 FINDINGS: No lines and tubes are seen. Right mediastinal mass is seen, unchanged from prior exam. Airspace opac ities are in the right greater than left lower lobe. Small right and trace left pleural effusions are seen. IMPRESSION: 1. Interval increase in small right and trace left pleural effusions with underlying airspace opacit ies which may represent atelectasis. 2. Again seen is right hilar mass. ACT 112: Negative or not required by law. Electronically signed by: Umesh De Leon M.D. 03/17/2024 9:28 AM
--- NOTE | 2024-03-17 12:01 | Neurology Consultation ---
Date of Consultation March 17, 2024 Assessment & Plan (1) Slurring of speech: Plan 83 yo woman with hx of Afib on Eliquis is admitted with SOB and hypoxia, referred to neurology for transient slurred speech. On exam there are no deficits, her NIHSS is 0. CT head and CTA head/neck were personally reviewed, no ischemic changes, diffuse atherosclerosis is seen without severe stenosis or LVO. Suspect she was slurring her words due to her current sickness and from medications. I dont think she had a TIA, further stroke workup is not recommended. Resume Eliquis when appropriate per primary team Neurology will sign off Telehealth Consultation Telehealth Information Telehealth Information: I performed this visit using a real-time telehealth connection between my location and the patients location ([facility]). After connecting through interactive tele-video, patient was identified by name and date of and/or wristband check.Patient (or authorized healthcare registered representative) was informed that this was a telemedicine visit and it was being conducted confidentially over secure lines. My office door was closed and no one else was present in the room with me.Patient (or authorized healthcare registered representative) provided consent to proceed with the visit, expressed an understanding of privacy and security of the telemedicine visit, and gave permission to have a hospital registered representative in the room in order to assist with the visit and to conduct portions of the visit, as needed. I informed the patient (or authorized healthcare registered representative) that I reviewed their record and presented the opportunity for them to ask any questions regarding the visit today. The patient agreed to participate. History of Present Illness Reason for Consultation: Stroke like symptoms Attending Physician: Deanna Pierce MD History of Present Illness 83 yo woman with hx of atrial fibrillation (on Eliquis), CAD (aspirin) suspected lung cancer, presented with SOB and hypoxia. Reported feeling anxious. Per nurse at bedside, the patient was nauseated, after Phenergan she was slurring her words, no other deficits were noted or reported. CT and CTA were obtained and neurology was consulted. Her speech improved, she is at baseline now. Allergies Allergy/AdvReac Type Severity Reaction Status Date / Time azithromycin Allergy Severe throat Verified 03/15/24 16:38 swelling sulfamethoxazole Allergy Intermediate Hives Verified 03/15/24 16:38 trimethoprim Allergy Intermediate Hives Verified 03/15/24 16:38 penicillin V Allergy Mild arm Verified 03/15/24 16:38 swelling with PCN (tolerates oral PCN/Amoxicillin) Home Medications Medication Instructions Recorded Confirmed Type multivitamin 1 tab PO QAM 06/03/19 03/15/24 History amlodipine 2.5 mg tablet 2.5 mg PO QAM 09/23/22 03/15/24 History buspirone 10 mg tablet 10 mg PO HS 09/23/22 03/15/24 History calcium carbonate 600 mg-vitamin 1 tab PO HS 09/23/22 03/15/24 History D3 20 mcg (800 unit) chewable tablet (Caltrate 600 plus D) apixaban 5 mg tablet 5 mg PO BID #180 tabs 11/02/22 03/15/24 Rx aspirin 81 mg tablet,delayed 81 mg PO QAM 11/13/22 03/15/24 History release (Adult Low Dose Aspirin) albuterol sulfate 90 mcg/actuation 2 puff inhalation QID PRN 01/01/23 03/15/24 Rx aerosol inhaler shortness of breath or wheezing #8.5 grams metoprolol tartrate 50 mg tablet 50 mg PO BID #180 tabs 09/05/23 03/15/24 Rx amiodarone 200 mg tablet 200 mg PO DAILY #90 tabs 02/08/24 03/15/24 Rx bumetanide 2 mg tablet 3 mg PO DAILY 03/15/24 03/15/24 History gabapentin 300 mg capsule 300 mg PO BID 03/15/24 03/15/24 History losartan 100 mg tablet 100 mg PO HS 03/15/24 03/15/24 History potassium chloride 10 mEq 10 meq PO BID 03/15/24 03/15/24 History capsule,extended release Patient History Medical History (Updated 03/17/24 @ 12:26 by Peyton Leiva MD) Slurring of speech Abdominal aortic ectasia Severe mitral regurgitation Moderate left ventricular systolic dysfunction Alveolar emphysema of lung Hypertension Dyslipidemia Mild coronary artery disease normal coronary arteries with mild luminal irregularities per 2011 cardiac cath Moderate to severe mitral regurgitation Severe per 11/2022 ECHO Seasonal allergies Anxiety Chronic back pain Breast cancer right, XRT in 1986 Aortic aneurysm s/p repair (2010), follows with [facility] cardio Osteoporosis, unspecified Post-traumatic arthritis of ankle Surgical History (Updated 03/15/24 @ 18:17 by Thai Gray DO) 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 Status post open reduction with internal fixation (ORIF) of fracture of ankle Right ankle ORIF: 06/03/20: Grade view 1, MAC#3, ETT 7 at [facility] Status post thoracic aortic aneurysm repair with a stent + "blow out patch" (2010) [facility] History of cardioversion 10/2022 [facility] S/P ankle arthrodesis H/O decompression of ulnar nerve right History of carpal tunnel release right and left History of cataract surgery bilateral History of tonsillectomy History of appendectomy History of colonoscopy Hx of lumpectomy right breast with radiation History of bilateral tubal ligation H/O lumbar discectomy with hardware/cage S/P hardware removal Left wrist Status post open reduction and internal fixation (ORIF) of fracture Left wrist History of cardiac cath 2011- , no stents; f/u dr javed, me History of open reduction and internal fixation (ORIF) procedure left wrist Family History Mother Heart disease Other No family history of adverse response to anesthesia Social History Smoking Status: Never smoker Tobacco Type: Cigarettes Cigarettes Per Day: QUIT >12 YRS AGO; Second Hand Exposure: No; Do You Dip or Chew Tobacco: No; Hx Alcohol Use: No Hx Substance Use: No Preferred Language: Croatian Communication Ability: Effective Acidizer Helper Required: No Beliefs That Will Affect Care: None marital status: / Current Living Situation: Family Current Living Situation Comment: son, & grandson Feels Safe at Home: Yes Assistive Devices: Brace/Splint/Immobilizer and Cane Physical Exam NIH Stroke Scale: 1a. Level of Consciousness: alert = 0 1b. LOC Questions: (month, age): both correct = 0 1c. LOC Commands (open and close eyes, make fist and let go using non-paretic hand): obeys both correctly = 0 2. Best Gaze (eyes open and patient follows examiner's finger or face): normal = 0 3. Visual (visual threat or finger counting in each quadrant): no loss = 0 4. Facial Palsy (show teeth, raise eye brows and squeeze eyes shut, or grimace symmetry in a comatose patient): normal = 0 5a. Motor Arm (extend arm (palms down) to 90 degrees and score drift/movement (10 seconds) - Left: no drift = 0 5b. Motor Arm: (extend arm (palms down) to 90 degrees and score drift/movement (10 seconds) - Right: no drift = 0 6a. Motor Leg (elevate leg 30 degrees and score drift/ movement (5 seconds) - L eft: no drift = 0 6b. Motor Leg (elevate leg 30 degrees and score drift/ movement (5 seconds) - Right: no drift = 0 7. Limb Ataxia (finger to nose, heel down granado): absent = 0 8. Sensory (pin prick to face, arm, trunk and leg, compare side to side): normal = 0 9. Best Language: no aphasia = 0 10. Dysarthria (evaluate speech clarity by patient repeating listed words): normal articulation = 0 11. Extinction and Inattention: no neglect = 0 Total: 0 Results & Data Vital Signs (Past 12 Hours) Vital Signs Temp Pulse Pulse Resp BP Pulse Ox O2 Del Method 03/17/24 11:06 36.6 C 75 16 124/70 98 BiPAP 03/17/24 10:19 36.6 C 79 16 129/69 96 BiPAP 03/17/24 09:38 Oxymask 03/17/24 09:29 82 26 H BiPAP 03/17/24 09:28 82 26 H 100 03/17/24 09:15 71 14 127/73 100 BiPAP 03/17/24 09:00 89 14 187/88 H 90 Room Air 03/17/24 08:45 89 14 187/88 H 90 Room Air 03/17/24 08:30 86 14 90 Oxymask 03/17/24 08:25 72 14 108/52 L 89 L Oxymask 03/17/24 08:20 69 14 124/52 L 89 L Oxymask 03/17/24 08:15 69 14 120/55 L 82 L Oxymask 03/17/24 08:10 68 14 149/58 H 87 L Oxymask 03/17/24 08:07 14 L 128/58 L 96 Oxymask 03/17/24 08:00 68 03/17/24 08:00 Nasal Cannula 03/17/24 07:35 36.5 C 71 14 171/68 H 93 Nasal Cannula, Oxymask 03/17/24 03:53 36.3 C L 55 L 14 129/81 97 Nasal Cannula O2 Flow Rate FiO2 03/17/24 11:06 50 03/17/24 10:19 50 03/17/24 09:38 03/17/24 09:29 50 03/17/24 09:28 50 03/17/24 09:15 50 03/17/24 09:00 03/17/24 08:45 03/17/24 08:30 03/17/24 08:25 15 03/17/24 08:20 15 03/17/24 08:15 15 03/17/24 08:10 15 03/17/24 08:07 4 03/17/24 08:00 03/17/24 08:00 4 03/17/24 07:35 03/17/24 03:53 3.5 Laboratory Results Abnormal lab results 03/16/24 03/17/24 Range/Units 21:44 05:48 RBC 3.63 L (4.20-5.40) M/uL Hgb 11.0 L (12.0-16.0) g/dl Hct 34.2 L (37.0-47.0) % Lymph # (Auto) 1.16 L (1.20-3.40) K/uL [place] # (Auto) 0.83 H (0.11-0.59) K/uL Sodium 134 L (136-145) mmol/L Chloride 94 L (98-107) mmol/L Carbon Dioxide 35 H (21-32) mmol/L Glucose 107 H (70-99(Fasting)) mg/dl POC Glucose 122 H (70-99) mg/dl Hemoglobin A1c 6.2 H (4.5-5.6) % Diagnostic Findings Head CT 03/16/24 08:29 CT head/brain wo/w con CT DOSE: 3111.05 mGy.cm CLINICAL HISTORY: Lung cancer. Assess for metastatic disease. TECHNIQUE: Multiaxial CT images of the head were performed both before and after intravenous administration of contrast. A dose lowering technique was utilized adhering to the principles of ALARA. COMPARISON STUDY: None. FINDINGS: Mild mucosal thickening within the ethmoid air cells. There are few opacified right inferior mastoid air cells. Multiple opacified left mastoid air cells are noted. No suspicious lytic or blastic osseous lesions. No calvarial fractures. There is mild motion artifact. The ventricles and sulci are within normal limits. There is no mass, hematoma, midline shift, acute infarct. Postc ontrast sequences show no areas of abnormal enhancement. IMPRESSION: No evidence for intracranial metastatic disease. ACT 112: Negative or not required by law. Electronically signed by: Martin Granados M.D. 03/16/2024 4:[address] 03/16/24 21:54 Exam(s): CT HEAD Without Contrast EXAM: CT Head Without Intravenous Contrast CLINICAL HISTORY: Reason for exam: CVA. TECHNIQUE: Axial computed tomography images of the head/brain without intravenous contrast. CTDI is 45.33 mGy and DLP is 677.48 mGy-cm. Automated exposure control was utilized for the study. A dose lowering technique was utilized adhering to the principles of ALARA. COMPARISON: 03/16/2024 FINDINGS: Brain: No hemorrhage, extra-axial fluid collection, mass effect, or edema. Ventricles: Unremarkable. Bones/joints: Unremarkable. No fracture. Soft tissues: Unremarkable. Sinuses: No acute sinusitis. Mastoid air cells: Left mastoid effusion. IMPRESSION: 1. No acute intracranial abnormality. 2. Left mastoid effusion. Electronically signed by: Tom Nguyen MD 03/16/24 22:39 PM Head CTA 03/16/24 21:54 Exam(s): CTA HEAD With Contrast IV Amt: 116 ml opti 320 EXAM: CT Angiography Head With Intravenous Contrast CLINICAL HISTORY: Reason for exam: CVA?. TECHNIQUE: Axial computed tomographic angiography images of the head with intravenous contrast. CTDI is 58.49 mGy and DLP is 624.41 mGy-cm. Automated exposure control was utilized for the study. A dose lowering technique was utilized adhering to the principles of ALARA. MIP reconstructed images were created and reviewed. CONTRAST: Patient received 116 ml opti 320 of IV contrast COMPARISON: No relevant prior studies available. FINDINGS: Right internal carotid artery: No limiting atherosclerotic calcifications within the right ICA. No flow-limiting stenosis. No aneurysm. Right anterior cerebral artery: Unremarkable. No occlusion or significant stenosis. No aneurysm. Right middle cerebral artery: Unremarkable. No occlusion or significant stenosis. No aneurysm. Right posterior cerebral artery: Unremarkable. No occlusion or significant stenosis. No aneurysm. Right vertebral artery: Unremarkable as visualized. Left internal carotid artery: Atherosclerotic calcifications within the left ICA. No flow-limiting stenosis. No aneurysm. Left anterior cerebral artery: Unremarkable. No occlusion or significant stenosis. No aneurysm. Left middle cerebral artery: Unremarkable. No occlusion or significant stenosis. No aneurysm. Left posterior cerebral artery: Unremarkable. No occlusion or significant stenosis. No aneurysm. Left vertebral artery: No flow-limiting atherosclerotic calcifications within the left vertebral artery. Basilar artery: Unremarkable. No occlusion or significant stenosis. No aneurysm. IMPRESSION: No acute findings in the arteries of the head/brain. Electronically signed by: Tom Nguyen MD 03/16/24 22:41 PM Neck CTA 03/16/24 21:54 Exam(s): CTA NECK With Contrast IV Amt: 116 ml opti 320 EXAM: CT Angiography Neck With Intravenous Contrast CLINICAL HISTORY: Reason for exam: CVA?. TECHNIQUE: Routine carotid CT angiography protocol was performed with intravenous contrast. NASCET criteria using the distal ICAs for comparison were used for evaluation of stenoses. CTDI is 64.34 mGy and DLP is 961.59 mGy-cm. Automated exposure control was utilized for the study. A dose lowering technique was utilized adhering to the principles of ALARA. MIP reconstructed images were created and reviewed. CONTRAST: Patient received 116 ml opti 320 of IV contrast COMPARISON: None. FINDINGS: VASCULATURE: Right common carotid artery: Unremarkable. No occlusion or significant stenosis. No dissection. Right internal carotid artery: Atherosclerotic calcifications at the right carotid bulb. No flow-limiting stenosis. Right external carotid artery: Severe stenosis at the ostia of the right external carotid artery. Right vertebral artery: Unremarkable. No occlusion or significant stenosis. No dissection. Left common carotid artery: Unremarkable. No occlusion or significant stenosis. No dissection. Left internal carotid artery: Non flow-limiting atherosclerotic calcifications within the proximal left ICA. Left vertebral artery: Unremarkable. No occlusion or significant stenosis. No dissection. NECK: Bones/joints: Unremarkable. No acute fracture. Soft tissues: Unremarkable. Lung apices: Nodular airspace opacities in the upper lobes and a small right pleural effusion. CAROTID STENOSIS REFERENCE USING NASCET CRITERIA: % ICA stenosis = (1 - narrowest ICA diameter/diameter of distal cervical ICA) x 100. Mild - <50% stenosis. Moderate - 50-69% stenosis. Severe - 70-94% stenosis. Near occlusion - 95-99% stenosis. Occluded - 100% stenosis. IMPRESSION: 1. No flow-limiting stenosis. 2. Nodular airspace opacities in the upper lobes and a small right pleural effusion. Medications Administered Home Medications Medication Instructions Recorded Confirmed Last Taken multivitamin 1 tab PO QAM 06/03/19 03/15/24 03/15/24 amlodipine 2.5 mg tablet 2.5 mg PO QAM 09/23/22 03/15/24 03/15/24 buspirone 10 mg tablet 10 mg PO HS 09/23/22 03/15/24 03/14/24 calcium carbonate 600 mg-vitamin 1 tab PO HS 09/23/22 03/15/24 03/14/24 D3 20 mcg (800 unit) chewable tablet (Caltrate 600 plus D) apixaban 5 mg tablet 5 mg PO BID #180 tabs 11/02/22 03/15/24 03/15/24 08:00 aspirin 81 mg tablet,delayed 81 mg PO QAM 11/13/22 03/15/24 03/15/24 release (Adult Low Dose Aspirin) albuterol sulfate 90 mcg/actuation 2 puff inhalation QID PRN 01/01/23 03/15/24 Unknown aerosol inhaler shortness of breath or wheezing #8.5 grams metoprolol tartrate 50 mg tablet 50 mg PO BID #180 tabs 09/05/23 03/15/24 03/15/24 08:00 amiodarone 200 mg tablet 200 mg PO DAILY #90 tabs 02/08/24 03/15/24 03/15/24 bumetanide 2 mg tablet 3 mg PO DAILY 03/15/24 03/15/24 03/15/24 gabapentin 300 mg capsule 300 mg PO BID 03/15/24 03/15/24 03/15/24 08:00 losartan 100 mg tablet 100 mg PO HS 03/15/24 03/15/24 03/14/24 potassium chloride 10 mEq 10 meq PO BID 03/15/24 03/15/24 03/15/24 08:00 capsule,extended release Active Medications Generic Name Dose Route Start Last Admin Trade Name Freq PRN Reason Stop Dose Admin Acetaminophen 650 mg 03/15/24 20:34 03/16/24 23:21 Acetaminophen 325 Mg Tab PO 04/14/24 20:33 650 mg Q4H PRN Administration Pain or Fever Amiodarone HCl 200 mg 03/16/24 09:00 03/16/24 08:04 Amiodarone 200 Mg Tab PO 04/15/24 08:59 200 mg DAILY JOSE Administration Amlodipine Besylate 2.5 mg 03/16/24 09:00 03/16/24 08:03 Amlodipine Besylate 5 Mg Tab PO 04/15/24 08:59 2.5 mg QAM JOSE Administration Buspirone HCl 10 mg 03/15/24 21:00 03/16/24 23:05 Buspirone 5 Mg Tab PO 04/14/24 20:59 10 mg HS JOSE Administration Gabapentin 300 mg 03/15/24 21:00 03/16/24 23:05 Gabapentin 300 Mg Cap PO 04/14/24 20:59 300 mg BID JOSE Administration Sodium Chloride 1,000 mls @ 75 mls/hr 03/16/24 23:15 03/16/24 23:22 Nss IV 03/17/24 12:34 75 mls/hr .[id number] JOSE Administration Losartan Potassium 100 mg 03/15/24 21:00 03/16/24 23:06 Losartan Potassium 50 Mg Tab PO 04/14/24 20:59 100 mg HS JOSE Administration Metoprolol Tartrate 50 mg 03/15/24 21:00 03/16/24 23:06 Metoprolol Tartrate 50 Mg Tab PO 04/14/24 20:59 50 mg BID JOSE Administration Ondansetron HCl 4 mg 03/15/24 20:34 03/16/24 17:46 Ondansetron Inj 2 Mg/Ml 2 Ml Vial IV 04/14/24 20:33 4 mg Q6H PRN Administration Nausea Oxycodone HCl 5 mg 03/15/24 20:34 03/16/24 15:56 Oxycodone Hcl Ir 5 Mg Tab (Immediate Release) PO 03/29/24 20:33 5 mg Q4 PRN Administration Pain
[2024-03-17] MEDS ORDERED: ARTIFICIAL TEARS OPB PRN (14:20)
--- NOTE | 2024-03-17 14:25 | Hospitalist Progress Note ---
Date of Service March 17, 2024 Assessment & Plan (1) Acute hypoxic respiratory failure: (2) Suspected malignant neoplasm of lung: (3) Myoclonic jerking: (4) Acute kidney injury: (5) Lymphadenopathy, mediastinal: (6) SVC obstruction: (7) Paroxysmal atrial fibrillation: (8) Hypokalemia: (9) Mild right ventricular systolic dysfunction: (10) Postobstructive pneumonia: Plan Ms. Camacho is an 83-year-old female presents to the emergency room with acute hypoxic respiratory failure due to suspected lung malignancy and concern for metastatic disease. Bronchoscopy performed on 03/17. Rad Onc and Onc consulted to determine next steps for treatment. Post bronch complicated by worsening resp failure requiring bipap. Continue to wean off bipap with hopes for possible palliative radiation in am. #Acute hypoxic respiratory failure #Large mediastinal mass c/f bronchogenic malignancy Biofire negative CT with large mass and associated LAD CT head, abd/pelvis ordered No evidence of post-obstructive pneumonia, discontinued abx per pulm Continue to hold eliquis and ASA resume tomorrow Pulm on consult, s/p bronch 03/17 Oxy IR for and Tylenol for pain control Wean O2 as able Cleared for ice chips s/p bronch -Advance per speech recommendations Question of type of cancer for next steps -Tentatively planning for radiation tomorrow -Rad onc following appreciate recommendations -Heme/Onc to follow, appreciate recommendations Palliative consult #SVC syndrome #HTN #Nonobstructive CAD #Valvular heart disease Hold diuretics (utilized prn as op) HOB elevated Continue Amlodipine 2.5 mg daily. Hold asa resume tomorrow Continue losartan 100mg daily #Stroke like symptoms #Myoclonic jerks -Statin started,, resume asa/eliquis when able #Normocytic anemia Anemia labs ordered #Atrial fibrillation Stable rate today Hold anticoagulation monitor on tele Continue Amiodarone 200 mg daily Continue Lopressor 50 mg b.i.d.. # Ascending Aortic Aneurysm Dissection s/p Repair CTM, BP control DVT scds pending bronchoscopy, plan to resume DOAC as able Resume AC tomorrow Conditional code: per admitting chest compressions are acceptable, no intubation; patient not with clear mentation at time of visit to readdress code status at this time Admission and Anticipated Discharge Date Admission Date: March 15, 2024 Subjective Stroke alert overnight, marked by left sided weakness; resolved, started on statin overnight evaluated s/p bronchoscopy Patient on Bipap--mildly anxious, states she is in hospital, does not recall undergoing bronchoscopy, endorses mild throat pain, but denies any other acute concerns Physical Exam Constitutional: on bipap, tolerating and communicating well Respiratory: diffuse rhonchi Gastrointestinal (Abdomen): normal bowel sounds, soft, nontender, no hepatosplenomegaly Results & Data Results & Data Vital Signs (Past 12 Hours) Vital Signs Temp Pulse Pulse Resp BP Pulse Ox O2 Del Method 03/17/24 13:03 21 97 03/17/24 11:06 36.6 C 75 16 124/70 98 BiPAP 03/17/24 10:19 36.6 C 79 16 129/69 96 BiPAP 03/17/24 09:38 Oxymask 03/17/24 09:29 82 26 H BiPAP 03/17/24 09:28 82 26 H 100 03/17/24 09:15 71 14 127/73 100 BiPAP 03/17/24 09:00 89 14 187/88 H 90 Room Air 03/17/24 08:45 89 14 187/88 H 90 Room Air 03/17/24 08:30 86 14 90 Oxymask 03/17/24 08:25 72 14 108/52 L 89 L Oxymask 03/17/24 08:20 69 14 124/52 L 89 L Oxymask 03/17/24 08:15 69 14 120/55 L 82 L Oxymask 03/17/24 08:10 68 14 149/58 H 87 L Oxymask 03/17/24 08:07 14 L 128/58 L 96 Oxymask 03/17/24 08:00 68 03/17/24 08:00 Nasal Cannula 03/17/24 07:35 36.5 C 71 14 171/68 H 93 Nasal Cannula, Oxymask 03/17/24 03:53 36.3 C L 55 L 14 129/81 97 Nasal Cannula O2 Flow Rate FiO2 03/17/24 13:03 40 03/17/24 11:06 50 03/17/24 10:19 50 03/17/24 09:38 03/17/24 09:29 50 03/17/24 09:28 50 03/17/24 09:15 50 03/17/24 09:00 03/17/24 08:45 05/23/24 08:30 03/17/24 08:25 15 03/17/24 08:20 15 03/17/24 08:15 15 03/17/24 08:10 15 03/17/24 08:07 4 03/17/24 08:00 03/17/24 08:00 4 03/17/24 07:35 03/17/24 03:53 3.5 Laboratory Results Short CBC 03/17/24 Range/Units 05:48 WBC 7.72 (4.8-10.8) K/ul Hgb 11.0 L (12.0-16.0) g/dl Hct 34.2 L (37.0-47.0) % Plt Count 195 (130-400) K/uL BMP 03/17/24 05:48 Sodium 134 L Potassium 3.8 Chloride 94 L Carbon Dioxide 35 H BUN 12 Creatinine 0.64 Glucose 107 H Calcium 8.7 Medications Administered Home Medications Medication Instructions Recorded Confirmed Last Taken multivitamin 1 tab PO QA 06/03/19 03/15/24 03/15/24 amlodipine 2.5 mg tablet 2.5 mg PO [facility] 09/23/22 03/15/24 03/15/24 buspirone 10 mg tablet 10 mg PO 09/23/22 03/15/24 03/14/24 calcium carbonate 600 mg-vitamin 1 tab PO 09/23/22 03/15/24 03/14/24 D3 20 mcg (800 unit) chewable tablet (Caltrate 600 plus D) apixaban 5 mg tablet 5 mg PO BID #180 tabs 11/02/22 03/15/24 03/15/24 08:00 aspirin 81 mg tablet,delayed 81 mg PO QAM 11/13/22 03/15/24 03/15/24 release (Adult Low Dose Aspirin) albuterol sulfate 90 mcg/actuation 2 puff inhalation QID PRN 01/01/23 03/15/24 Unknown aerosol inhaler shortness of breath or wheezing #8.5 grams metoprolol tartrate 50 mg tablet 50 mg PO BID #180 tabs 09/05/23 03/15/24 03/15/24 08:00 amiodarone 200 mg tablet 200 mg PO DAILY #90 tabs 02/08/24 03/15/24 03/15/24 bumetanide 2 mg tablet 3 mg PO DAILY 03/15/24 03/15/24 03/15/24 gabapentin 300 mg capsule 300 mg PO BID 03/15/24 03/15/24 03/15/24 08:00 losartan 100 mg tablet 100 mg PO HS 03/15/24 03/15/24 03/14/24 potassium chloride 10 mEq 10 meq PO BID 03/15/24 03/15/24 03/15/24 08:00 capsule,extended release Active Medications Generic Name Dose Route Start Last Admin Trade Name Freq PRN Reason Stop Dose Admin Acetaminophen 650 mg 03/15/24 20:34 03/16/24 23:21 Acetaminophen 325 Mg Tab PO 04/14/24 20:33 650 mg Q4H PRN Administration Pain or Fever Amiodarone HCl 200 mg 03/16/24 09:00 03/17/24 13:19 Amiodarone 200 Mg Tab PO 04/15/24 08:59 Not Given DAILY JOSE Amlodipine Besylate 2.5 mg 03/16/24 09:00 03/17/24 13:19 Amlodipine Besylate 5 Mg Tab PO 04/15/24 08:59 Not Given QAM JOSE Buspirone HCl 10 mg 03/15/24 21:00 03/16/24 23:05 Buspirone 5 Mg Tab PO 04/14/24 20:59 10 mg HS JOSE Administration Gabapentin 300 mg 03/15/24 21:00 03/17/24 13:19 Gabapentin 300 Mg Cap PO 04/14/24 20:59 Not Given BID JOSE Losartan Potassium 100 mg 03/15/24 21:00 03/16/24 23:06 Losartan Potassium 50 Mg Tab PO 04/14/24 20:59 100 mg HS JOSE Administration Metoprolol Tartrate 50 mg 03/15/24 21:00 03/17/24 13:19 Metoprolol Tartrate 50 Mg Tab PO 04/14/24 20:59 Not Given BID JOSE Ondansetron HCl 4 mg 03/15/24 20:34 03/16/24 17:46 Ondansetron Inj 2 Mg/Ml 2 Ml Vial IV 04/14/24 20:33 4 mg Q6H PRN Administration Nausea Oxycodone HCl 5 mg 03/15/24 20:34 03/16/24 15:56 Oxycodone Hcl Ir 5 Mg Tab (Immediate Release) PO 03/29/24 20:33 5 mg Q4 PRN Administration Pain
--- NOTE | 2024-03-17 16:50 | Oncology Consultation ---
Date of Consultation March 17, 2024 Assessment & Plan (1) Suspected malignant neoplasm of lung: (2) Lymphadenopathy, mediastinal: (3) SVC obstruction: (4) Acute hypoxic respiratory failure: Plan -Imaging highly suggestive of metastatic lung cancer Likely involvement of contralateral lung and possible malignant pleural effusion.Although imaging is suggestive of SVC syndrome, she does not have significant clinical symptoms of SVC syndrome. -Given past smoking history, small cell lung cancer is a very strong differential. Will however await results from recently obtained bronchoscopy/EBUS with biopsy. If this confirms small cell lung cancer, plan to start chemotherapy while inpatient consisting of carboplatin day 1, etoposide day 1-3 which will be given IV q. 21-day cycle. On the other hand, if she is found to have non-small cell lung cancer would recommend outpatient initiation of Chemoimmunotherapy Or targeted therapy if NGS demonstrates actionable mutation and she may potentially derive benefit from palliative radiation treatment prior to initiation of Systemic therapy. This was discussed in detail with patient. She indicated that she would like to receive systemic therapy if biopsy confirms lung cancer. -Plan to obtain Staging PET/CT upon discharge from hospital. Thank you for this consult. Oncology continue following patient while she is in the hospital. Please feel free to call if you have any further questions. History of Present Illness Reason for Consultation: Lung cancer Attending Physician: Deanna Pierce MD History of Present Illness 83-year-old female who presented to the ER at [facility] with complaints of shortness of breath. Was found to be hypoxic on arrival to the ER with oxygen saturation in the mid 80s. Chest x-ray on 03/15/2024 revealed asymmetric right hilar masslike enlargement, cardiomegaly with pulmonary vascular congestion and trace pleural effusion. CTA chest also on 03/15/2024 revealed no evidence of PE, interval development of large right hilar/upper lobe mass measuring 10 x 8 cm highly suspicious for primary bronchogenic malignancy, right anterior diaphragmatic lymphadenopathy likely representing metastatic disease, 2.1 cm left upper lobe nodule abutting the mediastinum likely representing metastatic disease, small right pleural effusion which may represent malignant pleural effusion, right hilar/upper lobe mass results in mass effect along right pulmonary arteries as well as invasion into right upper lobe bronchus and bronchus intermedius with mass resulting in severe narrowing of the SVC without evidence of occlusion. CT abdomen and pelvis revealed no evidence of metastatic disease within abdomen and pelvis, 1.9 cm left adrenal nodule likely present on CT of September 25, 2022, pathologic right cardiophrenic angle lymph node and small right pleural effusion. CT head with and without contrast on 03/16/2024 revealed no evidence of intracranial metastatic disease. She underwent bronchoscopy/EBUS with biopsy earlier today with results pending Allergies Allergy/AdvReac Type Severity Reaction Status Date / Time azithromycin Allergy Severe throat Verified 03/15/24 16:38 swelling sulfamethoxazole Allergy Intermediate Hives Verified 03/15/24 16:38 trimethoprim Allergy Intermediate Hives Verified 03/15/24 16:38 penicillin V Allergy Mild arm Verified 03/15/24 16:38 swelling with PCN (tolerates oral PCN/Amoxicillin) Home Medications Medication Instructions Recorded Confirmed Type multivitamin 1 tab PO QAM 06/03/19 03/15/24 History amlodipine 2.5 mg tablet 2.5 mg PO QAM 09/23/22 03/15/24 History buspirone 10 mg tablet 10 mg PO HS 09/23/22 03/15/24 History calcium carbonate 600 mg-vitamin 1 tab PO HS 09/23/22 03/15/24 History D3 20 mcg (800 unit) chewable tablet (Caltrate 600 plus D) apixaban 5 mg tablet 5 mg PO BID #180 tabs 11/02/22 03/15/24 Rx aspirin 81 mg tablet,delayed 81 mg PO QAM 11/13/22 03/15/24 History release (Adult Low Dose Aspirin) albuterol sulfate 90 mcg/actuation 2 puff inhalation QID PRN 01/01/23 03/15/24 Rx aerosol inhaler shortness of breath or wheezing #8.5 grams metoprolol tartrate 50 mg tablet 50 mg PO BID #180 tabs 09/05/23 03/15/24 Rx amiodarone 200 mg tablet 200 mg PO DAILY #90 tabs 02/08/24 03/15/24 Rx bumetanide 2 mg tablet 3 mg PO DAILY 03/15/24 03/15/24 History gabapentin 300 mg capsule 300 mg PO BID 03/15/24 03/15/24 History losartan 100 mg tablet 100 mg PO HS 03/15/24 03/15/24 History potassium chloride 10 mEq 10 meq PO BID 03/15/24 03/15/24 History capsule,extended release Patient History Medical History (Updated 03/17/24 @ 12:26 by Peyton Leiva MD) Slurring of speech Abdominal aortic ectasia Severe mitral regurgitation Moderate left ventricular systolic dysfunction Alveolar emphysema of lung Hypertension Dyslipidemia Mild coronary artery disease normal coronary arteries with mild luminal irregularities per 2011 cardiac cath Moderate to severe mitral regurgitation Severe per 11/2022 ECHO Seasonal allergies Anxiety Chronic back pain Breast cancer right, XRT in 1986 Aortic aneurysm s/p repair (2010), follows with [facility] cardio Osteoporosis, unspecified Post-traumatic arthritis of ankle Surgical History (Updated 03/15/24 @ 18:17 by Thai Gray DO) 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 Status post open reduction with internal fixation (ORIF) of fracture of ankle Right ankle ORIF: 06/03/20: Grade view 1, MAC#3, ETT 7 at [facility] Status post thoracic aortic aneurysm repair with a stent + "blow out patch" (2010) [facility] History of cardioversion 10/2022 [facility] S/P ankle arthrodesis H/O decompression of ulnar nerve right History of carpal tunnel release right and left History of cataract surgery bilateral History of tonsillectomy History of appendectomy History of colonoscopy Hx of lumpectomy right breast with radiation History of bilateral tubal ligation H/O lumbar discectomy with hardware/cage S/P hardware removal Left wrist Status post open reduction and internal fixation (ORIF) of fracture Left wrist History of cardiac cath 2011- [facility], no stents; f/u dr javed, [place] History of open reduction and internal fixation (ORIF) procedure left wrist Family History Mother Heart disease Other No family history of adverse response to anesthesia Social History Smoking Status: Never smoker Tobacco Type: Cigarettes Cigarettes Per Day: QUIT >12 YRS AGO; Second Hand Exposure: No; Do You Dip or Chew Tobacco: No; Hx Alcohol Use: No Hx Substance Use: No Preferred Language: Pakistani Communication Ability: Effective 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: No Beliefs That Will Affect Care: None marital status: / Current Living Situation: Family Current Living Situation Comment: son, & grandson Feels Safe at Home: Yes Assistive Devices: Brace/Splint/Immobilizer and Cane Results & Data Vital Signs (Past 12 Hours) Vital Signs Temp Pulse Pulse Resp BP Pulse Ox O2 Del Method 03/17/24 15:23 36.6 C 84 17 142/71 H 95 Oxymask 03/17/24 13:03 21 97 03/17/24 11:06 36.6 C 75 16 124/70 98 BiPAP 03/17/24 10:19 36.6 C 79 16 129/69 96 BiPAP 03/17/24 09:38 Oxymask 03/17/24 09:29 82 26 H BiPAP 03/17/24 09:28 82 26 H 100 03/17/24 09:15 71 14 127/73 100 BiPAP 03/17/24 09:00 89 14 187/88 H 90 Room Air 03/17/24 08:45 89 14 187/88 H 90 Room Air 03/17/24 08:30 86 14 90 Oxymask 03/17/24 08:25 72 14 108/52 L 89 L Oxymask 03/17/24 08:20 69 14 124/52 L 89 L Oxymask 03/17/24 08:15 69 14 120/55 L 82 L Oxymask 03/17/24 08:10 68 14 149/58 H 87 L Oxymask 03/17/24 08:07 14 L 128/58 L 96 Oxymask 03/17/24 08:00 68 03/17/24 08:00 Nasal Cannula 03/17/24 07:35 36.5 C 71 14 171/68 H 93 Nasal Cannula, Oxymask O2 Flow Rate FiO2 03/17/24 15:23 4 03/17/24 13:03 40 03/17/24 11:06 50 03/17/24 10:19 50 03/17/24 09:38 03/17/24 09:29 50 03/17/24 09:28 50 03/17/24 09:15 50 03/17/24 09:00 03/17/24 08:45 03/17/24 08:30 03/17/24 08:25 15 03/17/24 08:20 15 03/17/24 08:15 15 03/17/24 08:10 15 03/17/24 08:07 4 03/17/24 08:00 03/17/24 08:00 4 03/17/24 07:35
[2024-03-17] MEDS: ALBUTEROL HFA 8 GM INHALER INH PRN (21:16)
[2024-03-17] MEDS: ATORVASTATIN 40 MG TAB PO SCH (21:37)
[2024-03-18] MEDS: LORazepam 0.5 MG TAB PO PRN (03:32)
[2024-03-18 05:58] LABS: Basophils # (auto) 0.06 K/uL (0.00-0.20); Basophils % (auto) 0.5 %; Eosinophils # (auto) 0.06 K/uL (0.00-0.50); Eosinophils % (auto) 0.5 %; Hematocrit (blood only) 36.9 % (37.0-47.0); Hemoglobin 11.9 g/dl (12.0-16.0); Immature Granulocytes # (auto) 0.04 K/uL (0.01-0.20); Immature Granulocytes % (auto) 0.3 %; Lymphocytes # (auto) 0.89 K/uL (1.20-3.40); Lymphocytes % (auto) 6.8 %; Mean Corpuscular Hemoglobin 30.7 pg (25.0-34.0); Mean Corpuscular Hgb Conc 32.2 g/dL (32.0-36.0); Mean Corpuscular Volume 95.3 fL (80.0-100.0); Mean Platelet Volume 9.7 fL (9.4-12.4); Monocytes # (auto) 1.04 K/uL (0.11-0.59); Monocytes % (auto) 7.9 %; Neutrophils # (auto) 11.03 K/uL (1.40-6.50); Platelet Count 190 K/uL (130-400); RDW Coefficient of Variation 13.1 % (11.5-14.5); RDW Standard Deviation 46.1 fL (36.4-46.3); Red Blood Count 3.87 M/uL (4.20-5.40); White Blood Count 13.12 K/ul (4.8-10.8)
[2024-03-18 06:31] LABS: Ferritin 58.4 ng/ml (8-388)
[2024-03-18 06:37] LABS: Folate (Folic Acid),Ser orPlas > 22.30 ng/ml (>5.38)
[2024-03-18 06:38] LABS: Vitamin B12 881 pg/ml (180-914)
[2024-03-18] MEDS: HYDROmorphone INJ 0.5 MG/0.5 ML SYR IV PRN (07:45)
--- NOTE | 2024-03-18 08:53 | Communication Note ---
Date of Service: March 18, 2024 Patient was brought down today for CT simulation. She was unable to tolerate positioning at all for simulation. She had significant discomfort involving her back. She was given pain medications prior to coming down for simulation which did not completely resolve her pain and the pain medications and make her more nauseous. Plan: 1. Radiation therapy will be on hold until next week. 2. We will reevaluate her overall care and discuss treatment plan with medical oncology. Final pathology will also be reviewed. 3. Please call us with any further questions or concerns.
[2024-03-18] MEDS ORDERED: FOSAPREPITANT DIMEGLUMINE 150 MG in SODIUM CHLORIDE 0.9% 145 ML IV ONE (11:30)
[2024-03-18] MEDS ORDERED: CARBOplatin 350 MG in SODIUM CHLORIDE 0.9% 250 ML IV SCH (12:00)
[2024-03-18] MEDS ORDERED: ETOPOSIDE 140 MG in SODIUM CHLORIDE 0.9% 500 ML IV SCH (12:30)
[2024-03-18] MEDS ORDERED: PROMETHAZINE HCL 6.25 MG in SODIUM CHLORIDE 0.9% 50 ML IV STA (13:52)
--- NOTE | 2024-03-18 13:58 | Hospitalist Progress Note ---
Date of Service March 18, 2024 Assessment & Plan (1) Acute hypoxic respiratory failure: (2) Suspected malignant neoplasm of lung: (3) Myoclonic jerking: (4) Acute kidney injury: (5) Lymphadenopathy, mediastinal: (6) SVC obstruction: (7) Paroxysmal atrial fibrillation: (8) Hypokalemia: (9) Mild right ventricular systolic dysfunction: (10) Postobstructive pneumonia: Plan Ms. Camacho is an 83-year-old female presents to the emergency room with acute hypoxic respiratory failure due to suspected lung malignancy and concern for metastatic disease. Bronchoscopy performed on 03/17. Rad Onc and Onc consulted to determine next steps for treatment. Post bronch complicated by worsening resp failure requiring bipap. Patient was weaned off of bipap and now on Oxymask, but with notable desaturation with movement. Radiation was attempted, however, patient unable to lay flat and now with extreme nausea complicating attempt with Rad/Onc, therefore postponed. Patient now to undergo carboplatin day 1, etoposide day 1-3 which will be given IV q. 21-day cycle per heme/onc recommendations Plan to start 03/18/2024 #Acute hypoxic respiratory failure #Metastatic Small Cell Carcinoma #Large mediastinal mass #Postobstructive pna,r/o Biofire negative CT with large mass and associated LAD CT head, abd/pelvis ordered No evidence of post-obstructive pneumonia, discontinued abx per pulm Continue to hold eliquis and ASA resume tomorrow Pulm on consult, s/p bronch 03/17 Oxy IR for and Tylenol for pain control Wean O2 as able Cleared for ice chips s/p bronch -Advance per speech recommendations Question of type of cancer for next steps -Tentatively planning for radiation tomorrow -Rad onc following appreciate recommendations -Heme/Onc to follow, appreciate recommendations carboplatin day 1, etoposide day 1-3 which will be given IV q. 21-day cycle.(03/18/2024) Will need OP PET/CT upon DC Palliative consult -Managing symptoms #SVC syndrome #HTN #Nonobstructive CAD #Valvular heart disease Hold diuretics (utilized prn as op) HOB elevated Continue Amlodipine 2.5 mg daily. continue asa Continue losartan 100mg daily #Stroke like symptoms #Myoclonic jerks -Statin started,, resume asa/eliquis when able #Normocytic anemia Anemia labs ordered #Atrial fibrillation Stable rate today resume anticoagulation monitor on tele Continue Amiodarone 200 mg daily Continue Lopressor 50 mg b.i.d.. # Ascending Aortic Aneurysm Dissection s/p Repair CTM, BP control DVT scds, resume doac Conditional code: per admitting chest compressions are acceptable, no intubation; patient not with clear mentation at time of visit to readdress code status at this time Called son today: reports worrying his mom will "give up" and states he isn't ready for her to "give up" Discussed that patient is wanting to try, but that it is understandable if this becomes overwhelming and untolerable. Palliative consulted. Will continue GOC conversations and reassess based upon response Admission and Anticipated Discharge Date Admission Date: March 15, 2024 Subjective Weaned to oxymask, Unable to tolarate attempt at radiation 2/2 back pain/breathing/nausea Patient states she is so nauseated, suspects pain medications related Other christopher unable to lay flat or move without notable SOB Physical Exam Constitutional: on oxymask, appears frail Respiratory: coarse breath sounds bilaterally Gastrointestinal (Abdomen): normal bowel sounds, soft, nontender, no hepatosplenomegaly Results & Data Results & Data Vital Signs (Past 12 Hours) Vital Signs Temp Pulse Pulse Resp BP Pulse Ox O2 Del Method 03/18/24 10:51 36.4 C L 71 22 166/79 H 99 Oxymask 03/18/24 09:00 Oxymask 03/18/24 07:16 91 H 03/18/24 07:04 36.5 C 85 20 166/76 H 94 Oxymask 03/18/24 03:28 36.3 C L 76 22 154/77 H 98 Oxymask O2 Flow Rate 03/18/24 10:51 4 03/18/24 09:00 4 03/18/24 07:16 03/18/24 07:04 4 03/18/24 03:28 Laboratory Results Short CBC 03/18/24 Range/Units 05:42 WBC 13.12 H (4.8-10.8) K/ul Hgb 11.9 L (12.0-16.0) g/dl Hct 36.9 L (37.0-47.0) % Plt Count 190 (130-400) K/uL Medications Administered Home Medications Medication Instructions Recorded Confirmed Last Taken multivitamin 1 tab PO QAM 06/03/19 03/15/24 03/15/24 amlodipine 2.5 mg tablet 2.5 mg PO QAM 09/23/22 03/15/24 03/15/24 buspirone 10 mg tablet 10 mg PO 09/23/22 03/15/24 03/14/24 calcium carbonate 600 mg-vitamin 1 tab PO HS 09/23/22 03/15/24 03/14/24 D3 20 mcg (800 unit) chewable tablet (Caltrate 600 plus D) apixaban 5 mg tablet 5 mg PO BID #180 tabs 11/02/22 03/15/24 03/15/24 08:00 aspirin 81 mg tablet,delayed 81 mg PO QAM 11/13/22 03/15/24 03/15/24 release (Adult Low Dose Aspirin) albuterol sulfate 90 mcg/actuation 2 puff inhalation QID PRN 01/01/23 03/15/24 Unknown aerosol inhaler shortness of breath or wheezing #8.5 grams metoprolol tartrate 50 mg tablet 50 mg PO BID #180 tabs 09/05/23 03/15/24 03/15/24 08:00 amiodarone 200 mg tablet 200 mg PO DAILY #90 tabs 02/08/24 03/15/24 03/15/24 bumetanide 2 mg tablet 3 mg PO DAILY 03/15/24 03/15/24 03/15/24 gabapentin 300 mg capsule 300 mg PO BID 03/15/24 03/15/24 03/15/24 08:00 losartan 100 mg tablet 100 mg PO 03/15/24 03/15/24 03/14/24 potassium chloride 10 mEq 10 meq PO BID 03/15/24 03/15/24 03/15/24 08:00 capsule,extended release Active Medications Generic Name Dose Route Start Last Admin Trade Name Freq PRN Reason Stop Dose Admin Acetaminophen 650 mg 03/15/24 20:34 03/17/24 17:42 Acetaminophen 325 Mg Tab PO 04/14/24 20:33 650 mg Q4H PRN Administration Pain or Fever Albuterol 2 puffs 03/15/24 20:34 03/17/24 21:16 Albuterol Hfa 8 Gm Inhaler INH 04/14/24 20:33 2 puffs Q4 PRN Administration shortness of breath or wheezin Amiodarone HCl 200 mg 03/16/24 09:00 03/18/24 07:24 Amiodarone 200 Mg Tab PO 04/15/24 08:59 200 mg DAILY JOSE Administration Amlodipine Besylate 2.5 mg 03/16/24 09:00 03/18/24 07:24 Amlodipine Besylate 5 Mg Tab PO 04/15/24 08:59 2.5 mg QAM JOSE Administration Atorvastatin Calcium 40 mg 03/17/24 21:00 03/17/24 21:37 Atorvastatin 40 Mg Tab PO 04/16/24 20:59 40 mg HS JOSE Administration Buspirone HCl 10 mg 03/15/24 21:00 03/17/24 21:35 Buspirone 5 Mg Tab PO 04/14/24 20:59 10 mg HS JSOE Administration Gabapentin 300 mg 03/15/24 21:00 03/18/24 07:23 Gabapentin 300 Mg Cap PO 04/14/24 20:59 300 mg BID JOSE Administration Hydromorphone HCl 0.25 mg 03/17/24 14:46 03/18/24 07:45 Hydromorphone Inj 0.5 Mg/0.5 Ml Syr IV 03/31/24 14:45 0.25 mg Q6H PRN Administration Severe Pain (Scale 7, 8, 9,10) Lorazepam 0.5 mg 03/15/24 20:34 03/18/24 12:47 Lorazepam 0.5 Mg Tab PO 04/14/24 20:33 0.5 mg Q6 PRN Administration Anxiety Losartan Potassium 100 mg 03/15/24 21:00 03/17/24 21:36 Losartan Potassium 50 Mg Tab PO 04/14/24 20:59 100 mg HS JOSE Administration Metoprolol Tartrate 50 mg 03/15/24 21:00 03/18/24 07:23 Metoprolol Tartrate 50 Mg Tab PO 04/14/24 20:59 50 mg BID JOSE Administration Oxycodone HCl 5 mg 03/15/24 20:34 03/16/24 15:56 Oxycodone Hcl Ir 5 Mg Tab (Immediate Release) PO 03/29/24 20:33 5 mg Q4 PRN Administration Pain
[2024-03-18] MEDS: dexAMETHasone 12 MG, PALONOSETRON 0.25 MG in SODIUM CHLORIDE 0.9% 50 ML IV ONE (13:59)
[2024-03-18] MEDS: CARBOplatin 350 MG in SODIUM CHLORIDE 0.9% 250 ML IV SCH (15:09)
[2024-03-18] MEDS: ETOPOSIDE 140 MG in SODIUM CHLORIDE 0.9% 500 ML IV SCH (15:58)
--- NOTE | 2024-03-18 19:38 | Palliative Care Consultation ---
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 We care for patients of any age/advancing stage of a serious illness and can be provided along with curative treatment. We are not hospice, which is a visiting nurse service that focuses on care delivered at the very end of life. (6) Advanced care planning/counseling discussion: Face to face with Sheri at bedside for 30min She is worried about outcomes given the intolerance to simulation and ongoing. She is DNI only. She states her son wanted to her try cardiac resuscitation at least once. We reviewed CPR survival in serious illness and poor outcomes overall at this age/stage of illness and inherent risks of thoracic complications with existing COPD on top of lung cancer and SVC syndrome. She does not feel she would want a lot of aggressive life support but is feeling her son wants her to do it. I encouraged to her discuss her worries with her son this weekend. I also offered to assist with any urgent family meeting needs through weekend via telemed if she desires. My contact info and the Palliative Med brochure was left for patient and son to review tomorrow when he visits. Plan As above. Thank you for allowing us to participate in the ongoing care of this patient. Please don't hesitate to call or page with any additional concerns. Dr. Capri Castellanos DNP Director, Palliative Care History of Present Illness Reason for Consultation: new lung cancer, patient unclear of course/plans Attending Physician: Deanna Pierce MD History of Present Illness Sheri is an 83yo female who presented to our ER 03/15/25 with SOB, weakness, remors which she states had been progressing for 3-4 weeks prior and has had about 10 lb weight loss in the same time frame along with persistent and worsening n/v/d. She was found to have SPO2 86% on room air, which improved to 96% on 2 L nasal cannula. She has a prior hx breast ca in 1986 treated with radiation and chemo. SHe is seen bedside, no family present She came back from RT sim attempt and reports she could not tolerate positioning Her dyspnea and nausea are significant She is in some pain anterior chest, lower back and sides she has ongoing issues with diarrhea and a very poor appetite she was dry heaving and retching through our visit In the ER, CTA revealed a large 10 x 8 cm mass in the right hilum with lymphadenopathy as well as metastatic disease. Otherwise this mass is causing SVC narrowing without obstruction, There is also a + pleural effusion. 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 Overall appearance is c/w a bronchogenic malignancy. Oncology consult noted: "Imaging highly suggestive of metastatic lung cancer - likely involvement of contralateral lung and possible malignant pleural effusion.Although imaging is suggestive of SVC syndrome, she does not have significant clinical symptoms of SVC syndrome. -Given past smoking history, small cell lung cancer is a very strong differential. Will however await results from recently obtained bronchoscopy/EBUS with biopsy. If this confirms small cell lung cancer, plan to start chemotherapy while inpatient consisting of carboplatin day 1, etoposide day 1-3 which will be given IV q. 21-day cycle. On the other hand, if she is found to have non-small cell lung cancer would recommend outpatient initiation of Chemoimmunotherapy Or targeted therapy if NGS demonstrates actionable mutation and she may potentially derive benefit from palliative radiation treatment prior to initiation of Systemic therapy. This was discussed in detail with patient. She indicated that she would like to receive systemic therapy if biopsy confirms lung cancer." Imaging review: CXR 03/15/2024: asymmetric right hilar masslike enlargement, cardiomegaly with pulmonary vascular congestion and trace pleural effusion. CTA chest 03/15/2024: no evidence of PE, interval development of large right hilar/upper lobe mass measuring 10 x 8 cm highly suspicious for primary bronc hogenic malignancy, right anterior diaphragmatic lymphadenopathy likely representing metastatic disease, 2.1 cm left upper lobe nodule abutting the mediastinum likely representing metastatic disease, small right pleural effusion which may represent malignant pleural effusion, right hilar/upper lobe mass results in mass effect along right pulmonary arteries as well as invasion into right upper lobe bronchus and bronchus intermedius with mass resulting in severe narrowing of the SVC without evidence of occlusion. CT abdomen and pelvis: no evidence of metastatic disease within abdomen and pelvis, 1.9 cm left adrenal nodule likely present on CT of September 25, 2022, pathologic right cardiophrenic angle lymph node and small right pleural effusion. CT head with and without contrast 03/16/2024: no evidence of intracranial metastatic disease. 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 - Please see microscopic description. Screened by on at . at 1317. Allergies Allergy/AdvReac Type Severity Reaction Status Date / Time azithromycin Allergy Severe throat Verified 03/15/24 16:38 swelling sulfamethoxazole Allergy Intermediate Hives Verified 03/15/24 16:38 trimethoprim Allergy Intermediate Hives Verified 03/15/24 16:38 penicillin V Allergy Mild arm Verified 03/15/24 16:38 swelling with PCN (tolerates oral PCN/Amoxicillin) Home Medications Medication Instructions Recorded Confirmed Type multivitamin 1 tab PO QAM 06/03/19 03/15/24 History amlodipine 2.5 mg tablet 2.5 mg PO QAM 09/23/22 03/15/24 History buspirone 10 mg tablet 10 mg PO HS 09/23/22 03/15/24 History calcium carbonate 600 mg-vitamin 1 tab PO HS 09/23/22 03/15/24 History D3 20 mcg (800 unit) chewable tablet (Caltrate 600 plus D) apixaban 5 mg tablet 5 mg PO BID #180 tabs 11/02/22 03/15/24 Rx aspirin 81 mg tablet,delayed 81 mg PO QAM 11/13/22 03/15/24 History release (Adult Low Dose Aspirin) albuterol sulfate 90 mcg/actuation 2 puff inhalation QID PRN 01/01/23 03/15/24 Rx aerosol inhaler shortness of breath or wheezing #8.5 grams metoprolol tartrate 50 mg tablet 50 mg PO BID #180 tabs 09/05/23 03/15/24 Rx amiodarone 200 mg tablet 200 mg PO DAILY #90 tabs 02/08/24 03/15/24 Rx bumetanide 2 mg tablet 3 mg PO DAILY 03/15/24 03/15/24 History gabapentin 300 mg capsule 300 mg PO BID 03/15/24 03/15/24 History losartan 100 mg tablet 100 mg PO HS 03/15/24 03/15/24 History potassium chloride 10 mEq 10 meq PO BID 03/15/24 03/15/24 History capsule,extended release Patient History Medical History (Updated 03/18/24 @ 19:57 by Capri Castellanos, RENETTA) Slurring of speech Abdominal aortic ectasia Severe mitral regurgitation Moderate left ventricular systolic dysfunction Alveolar emphysema of lung Hypertension Dyslipidemia Mild coronary artery disease normal coronary arteries with mild luminal irregularities per 2011 cardiac cath Moderate to severe mitral regurgitation Severe per 11/2022 ECHO Seasonal allergies Anxiety Chronic back pain Breast cancer right, XRT in 1986 Aortic aneurysm s/p repair (2010), follows with [facility] cardio Osteoporosis, unspecified Post-traumatic arthritis of ankle Surgical History (Updated 03/15/24 @ 18:17 by Thai Gray DO) 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 History of cardioversion 10/2022 [facility] S/P ankle arthrodesis H/O decompression of ulnar nerve right History of carpal tunnel release right and left History of cataract surgery bilateral History of tonsillectomy History of appendectomy History of colonoscopy Hx of lumpectomy right breast with radiation History of bilateral tubal ligation H/O lumbar discectomy with hardware/cage S/P hardware removal Left wrist Status post open reduction and internal fixation (ORIF) of fracture Left wrist History of cardiac cath 2011- [facility], no stents; f/u dr javed, ri History of open reduction and internal fixation (ORIF) procedure left wrist Family History Mother Heart disease Other No family history of adverse response to anesthesia Social History Smoking Status: Never smoker Tobacco Type: Cigarettes Cigarettes Per Day: QUIT >12 YRS AGO; Second Hand Exposure: No; Do You Dip or Chew Tobacco: No; Hx Alcohol Use: No Hx Substance Use: No Preferred Language: Faroese Communication Ability: Effective Medical Aides Teacher Required: No Beliefs That Will Affect Care: None marital status: / Current Living Situation: Family Current Living Situation Comment: son, & grandson Feels Safe at Home: Yes Assistive Devices: Brace/Splint/Immobilizer and Cane Review of Systems Review of Systems: All systems reviewed & are unremarkable except as noted in Subjective Physical Exam Constitutional: + acute distress, + ill appearing, + thi n, + frail appearing and cooperative Eyes: PERRL and EOM intact bilaterally ENMT: Mouth: + dry oral mucous membranes and + dentures (porcelain bridge uppers) Neck: trachea midline and + anterior neck swelling (right more than left) Respiratory: + respiratory distress, + labored breath ing and + pursed lip breathing Auscultation: + diminished lung sounds, + crackles and + rhonchi + mild chest wall plethora +cough +orthopnea +dyspnea Cardiovascular: Rate/Rhythm: + tachycardic Vessels: no JVD Gastrointestinal (Abdomen): Inspection/Auscultation: + abdomen distended and normal bowel sounds Percussion/Palpation: abdomen soft Musculoskeletal: +generalized weakness Skin: pale, dry, reduced turgor hair dry/thinning skin dry with venous insuff changes BLE Neurologic: AAOx3 anxious/guarded Results & Data Vital Signs (Past 12 Hours) Vital Signs Temp Pulse Pulse Resp BP Pulse Ox O2 Del Method 03/18/24 15:05 83 03/18/24 14:04 36.5 C 82 20 163/72 H 96 Oxymask 03/18/24 10:51 36.4 C L 71 22 166/79 H 99 Oxymask 03/18/24 09:00 Oxymask O2 Flow Rate 03/18/24 15:05 03/18/24 14:04 4 03/18/24 10:51 4 03/18/24 09:00 4 Laboratory Results 03/18/24 03/17/24 03/16/24 Range/Units 05:42 05:48 21:44 WBC 13.12 H 7.72 (4.8-10.8) K/ul RBC 3.87 L 3.63 L (4.20-5.40) M/uL Hgb 11.9 L 11.0 L (12.0-16.0) g/dl Hct 36.9 L 34.2 L (37.0-47.0) % MCV 95.3 94.2 (80.0-100.0) fL MCH 30.7 30.3 (25.0-34.0) pg MCHC 32.2 32.2 (32.0-36.0) g/dL RDW Std Deviation 46.1 44.8 (36.4-46.3) fL RDW Coeff of Michael 13.1 13.0 (11.5-14.5) % Plt Count 190 195 (130-400) K/uL MPV 9.7 9.8 (9.4-12.4) fL Immature Gran % (Auto) 0.3 0.3 % Neut % (Auto) 84.0 72.8 % Lymph % (Auto) 6.8 15.0 % [place] % (Auto) 7.9 10.8 % Eos % (Auto) 0.5 0.6 % Baso % (Auto) 0.5 0.5 % Neut # (Auto) 11.03 H 5.62 (1.40-6.50) K/uL Lymph # (Auto) 0.89 L 1.16 L (1.20-3.40) K/uL [place] # (Auto) 1.04 H 0.83 H (0.11-0.59) K/uL Eos # (Auto) 0.06 0.05 (0.00-0.50) K/uL Baso # (Auto) 0.06 0.04 (0.00-0.20) K/uL Immature Gran # (Auto) 0.04 0.02 (0.01-0.20) K/uL PT (9.0-12.0) Seconds INR (0.9-1.1) D-Dimer (0-500) ug/L FEU Sodium 134 L (136-145) mmol/L Potassium 3.8 (3.5-5.1) mmol/L Chloride 94 L (98-107) mmol/L Carbon Dioxide 35 H (21-32) mmol/L Anion Gap 5 (3-11) BUN 12 (6-23) mg/dl Creatinine 0.64 (0.6-1.2) mg/dl Est Cr Clr Drug Dosing 62.3 ml/min Est GFR ( Amer) 95.6 ml/min Est GFR (Non-Af Amer) 82.5 ml/min BUN/Creatinine Ratio 18.8 (10-20) Glucose 107 H (70-99(Fasting)) mg/dl POC Glucose 122 H (70-99) mg/dl Estimat Average Glucose 131 mg/dl Hemoglobin A1c 6.2 H (4.5-5.6) % Calcium 8.7 (8.6-10.3) mg/dl Phosphorus 2.6 (2.5-4.9) mg/dl Magnesium 1.8 (1.7-2.4) mg/dl Iron 37 (35-150) mcg/dl TIBC 301 (250-450) mcg/dl Unsaturated IBC 264 (155-355) mcg/dl Transferrin % Sat 12 L (15-50) % Ferritin 58.4 (8-388) ng/ml Total Bilirubin (0.2-1.0) mg/dl AST (13-39) U/L ALT (7-52) U/L Alkaline Phosphatase (34-104) U/L Total Protein (6.0-8.3) gm/dl Albumin (3.4-5.0) gm/dl Globulin (2.5-4.0) gm/dl Albumin/Globulin Ratio (0.9-2) Triglycerides 96 (0-150) mg/dl Cholesterol 178 (0-200) mg/dl LDL Cholesterol, Calc 102 mg/dl VLDL Cholesterol, Calc 19 (0-30) mg/dl HDL Cholesterol 57 mg/dl Cholesterol/HDL Ratio 3.1 (0-5) Vitamin B12 881 (180-914) pg/ml Folate > 22.30 (>5.38) ng/ml Urine Color Urine Appearance (Clear) Urine pH (4.5-7.5) Ur Specific [place] (1.000-1.030) Urine Protein (Negative) Urine Glucose (UA) (Negative) Urine Ketones (Negative) Urine Blood (Negative) Urine Nitrite (Negative) Urine Bilirubin (Negative) Urine Urobilinogen (Negative) Ur Leukocyte Esterase (Negative) Adenovirus (PCR) (NotDetected) B. pertussis DNA (PCR) (NotDetected) B.parapertussis DNA PCR (NotDetected) C. pneumoniae DNA (PCR) (NotDetected) Coronavirus OC43 (PCR) (NotDetected) Coronavirus HKU1 (PCR) (NotDetected) Coronavirus 229E (PCR) (NotDetected) SARS-CoV-2 (PCR) (NotDetected) Coronavirus NL63 (PCR) (NotDetected) Human Metapneumovir PCR (NotDetected) Influenza Type A (PCR) (NotDetected) Influenza Type B (PCR) (NotDetected) M. pneumoniae (PCR) (NotDetected) Parainfluenza 1 (PCR) (NotDetected) Parainfluenza 2 (PCR) (NotDetected) Parainfluenza 3 (PCR) (NotDetected) Parainfluenza 4 (PCR) (NotDetected) RSV (PCR) (NotDetected) Entero/Rhino (PCR) (NotDetected) 03/16/24 03/16/24 03/15/24 Range/Units 09:48 04:49 17:35 WBC 7.39 (4.8-10.8) K/ul RBC 3.82 L (4.20-5.40) M/uL Hgb 11.6 L (12.0-16.0) g/dl Hct 36.9 L (37.0-47.0) % MCV 96.6 (80.0-100.0) fL MCH 30.4 (25.0-34.0) pg MCHC 31.4 L (32.0-36.0) g/dL RDW Std Deviation 48.3 H (36.4-46.3) fL RDW Coeff of Michael 13.6 (11.5-14.5) % Plt Count 222 (130-400) K/uL MPV 9.9 (9.4-12.4) fL Immature Gran % (Auto) % Neut % (Auto) % Lymph % (Auto) % [place] % (Auto) % Eos % (Auto) % Baso % (Auto) % Neut # (Auto) (1.40-6.50) K/uL Lymph # (Auto) (1.20-3.40) K/uL [place] # (Auto) (0.11-0.59) K/uL Eos # (Auto) (0.00-0.50) K/uL Baso # (Auto) (0.00-0.20) K/uL Immature Gran # (Auto) (0.01-0.20) K/uL PT 11.2 (9.0-12.0) Seconds INR 1.0 (0.9-1.1) D-Dimer (0-500) ug/L FEU Sodium 137 (136-145) mmol/L Potassium 3.6 D (3.5-5.1) mmol/L Chloride 94 L (98-107) mmol/L Carbon Dioxide 38 H (21-32) mmol/L Anion Gap 5 (3-11) BUN 26 H (6-23) mg/dl Creatinine 0.89 D (0.6-1.2) mg/dl Est Cr Clr Drug Dosing 44.8 ml/min Est GFR ( Amer) 69.5 ml/min Est GFR (Non-Af Amer) 59.9 ml/min BUN/Creatinine Ratio 29.2 H (10-20) Glucose 101 H (70-99(Fasting)) mg/dl POC Glucose (70-99) mg/dl Estimat Average Glucose mg/dl Hemoglobin A1c (4.5-5.6) % Calcium 8.5 L (8.6-10.3) mg/dl Phosphorus (2.5-4.9) mg/dl Magnesium 2.1 (1.7-2.4) mg/dl Iron (35-150) mcg/dl TIBC (250-450) mcg/dl Unsaturated IBC (155-355) mcg/dl Transferrin % Sat (15-50) % Ferritin (8-388) ng/ml Total Bilirubin (0.2-1.0) mg/dl AST (13-39) U/L ALT (7-52) U/L Alkaline Phosphatase (34-104) U/L Total Protein (6.0-8.3) gm/dl Albumin (3.4-5.0) gm/dl Globulin (2.5-4.0) gm/dl Albumin/Globulin Ratio (0.9-2) Triglycerides (0-150) mg/dl Cholesterol (0-200) mg/dl LDL Cholesterol, Calc mg/dl VLDL Cholesterol, Calc (0-30) mg/dl HDL Cholesterol mg/dl Cholesterol/HDL Ratio (0-5) Vitamin B12 (180-914) pg/ml Folate (>5.38) ng/ml Urine Color Yellow Urine Appearance Clear (Clear) Urine pH 6.0 (4.5-7.5) Ur Specific [place] 1.034 H (1.000-1.030) Urine Protein Negative (Negative) Urine Glucose (UA) Negative (Negative) Urine Ketones Negative (Negative) Urine Blood Negative (Negative) Urine Nitrite Negative (Negative) Urine Bilirubin Negative (Negative) Urine Urobilinogen Negative (Negative) Ur Leukocyte Esterase Negative (Negative) Adenovirus (PCR) (NotDetected) B. pertussis DNA (PCR) (NotDetected) B.parapertussis DNA PCR (NotDetected) C. pneumoniae DNA (PCR) (NotDetected) Coronavirus OC43 (PCR) (NotDetected) Coronavirus HKU1 (PCR) (NotDetected) Coronavirus 229E (PCR) (NotDetected) SARS-CoV-2 (PCR) (NotDetected) Coronavirus NL63 (PCR) (NotDetected) Human Metapneumovir PCR (NotDetected) Influenza Type A (PCR) (NotDetected) Influenza Type B (PCR) (NotDetected) M. pneumoniae (PCR) (NotDetected) Parainfluenza 1 (PCR) (NotDetected) Parainfluenza 2 (PCR) (NotDetected) Parainfluenza 3 (PCR) (NotDetected) Parainfluenza 4 (PCR) (NotDetected) RSV (PCR) (NotDetected) Entero/Rhino (PCR) (NotDetected) 03/15/24 03/15/24 Range/Units 14:02 13:55 WBC 9.22 (4.8-10.8) K/ul RBC 3.99 L (4.20-5.40) M/uL Hgb 12.4 (12.0-16.0) g/dl Hct 37.7 (37.0-47.0) % MCV 94.5 (80.0-100.0) fL MCH 31.1 (25.0-34.0) pg MCHC 32.9 (32.0-36.0) g/dL RDW Std Deviation 46.5 H (36.4-46.3) fL RDW Coeff of Michael 13.4 (11.5-14.5) % Plt Count 248 (130-400) K/uL MPV 9.9 (9.4-12.4) fL Immature Gran % (Auto) 0.4 % Neut % (Auto) 65.2 % Lymph % (Auto) 20.5 % [place] % (Auto) 11.9 % Eos % (Auto) 0.9 % Baso % (Auto) 1.1 % Neut # (Auto) 6.01 (1.40-6.50) K/uL Lymph # (Auto) 1.89 (1.20-3.40) K/uL [place] # (Auto) 1.10 H (0.11-0.59) K/uL Eos # (Auto) 0.08 (0.00-0.50) K/uL Baso # (Auto) 0.10 (0.00-0.20) K/uL Immature Gran # (Auto) 0.04 (0.01-0.20) K/uL PT (9.0-12.0) Seconds INR (0.9-1.1) D-Dimer 880 H* (0-500) ug/L FEU Sodium 137 (136-145) mmol/L Potassium 2.9 L (3.5-5.1) mmol/L Chloride 91 L (98-107) mmol/L Carbon Dioxide 39 H (21-32) mmol/L Anion Gap 7 (3-11) BUN 38 H (6-23) mg/dl Creatinine 1.54 H (0.6-1.2) mg/dl Est Cr Clr Drug Dosing 25.9 ml/min Est GFR ( Amer) 35.8 ml/min Est GFR (Non-Af Amer) 30.9 ml/min BUN/Creatinine Ratio 24.7 H (10-20) Glucose 119 H (70-99(Fasting)) mg/dl POC Glucose (70-99) mg/dl Estimat Average Glucose mg/dl Hemoglobin A1c (4.5-5.6) % Calcium 9.2 (8.6-10.3) mg/dl Phosphorus (2.5-4.9) mg/dl Magnesium (1.7-2.4) mg/dl Iron (35-150) mcg/dl TIBC (250-450) mcg/dl Unsaturated IBC (155-355) mcg/dl Transferrin % Sat (15-50) % Ferritin (8-388) ng/ml Total Bilirubin 0.5 (0.2-1.0) mg/dl AST 20 (13-39) U/L ALT 13 (7-52) U/L Alkaline Phosphatase 55 (34-104) U/L Total Protein 6.8 (6.0-8.3) gm/dl Albumin 3.9 (3.4-5.0) gm/dl Globulin 2.9 (2.5-4.0) gm/dl Albumin/Globulin Ratio 1.3 (0.9-2) Triglycerides (0-150) mg/dl Cholesterol (0-200) mg/dl LDL Cholesterol, Calc mg/dl VLDL Cholesterol, Calc (0-30) mg/dl HDL Cholesterol mg/dl Cholesterol/HDL Ratio (0-5) Vitamin B12 (180-914) pg/ml Folate (>5.38) ng/ml Urine Color Urine Appearance (Clear) Urine pH (4.5-7.5) Ur Specific [place] (1.000-1.030) Urine Protein (Negative) Urine Glucose (UA) (Negative) Urine Ketones (Negative) Urine Blood (Negative) Urine Nitrite (Negative) Urine Bilirubin (Negative) Urine Urobilinogen (Negative) Ur Leukocyte Esterase (Negative) Adenovirus (PCR) Not Detected (NotDetected) B. pertussis DNA (PCR) Not Detected (NotDetected) B.parapertussis DNA PCR Not Detected (NotDetected) C. pneumoniae DNA (PCR) Not Detected (NotDetected) Coronavirus OC43 (PCR) Not Detected (NotDetected) Coronavirus HKU1 (PCR) Not Detected (NotDetected) Coronavirus 229E (PCR) Not Detected (NotDetected) SARS-CoV-2 (PCR) Not Detected (NotDetected) Coronavirus NL63 (PCR) Not Detected (NotDetected) Human Metapneumovir PCR Not Detected (NotDetected) Influenza Type A (PCR) Not Detected (NotDetected) Influenza Type B (PCR) Not Detected (NotDetected) M. pneumoniae (PCR) Not Detected (NotDetected) Parainfluenza 1 (PCR) Not Detected (NotDetected) Parainfluenza 2 (PCR) Not Detected (NotDetected) Parainfluenza 3 (PCR) Not Detected (NotDetected) Parainfluenza 4 (PCR) Not Detected (NotDetected) RSV (PCR) Not Detected (NotDetected) Entero/Rhino (PCR) Not Detected (NotDetected) Diagnostic Findings Chest X-Ray 03/15/24 14:08 XR chest 1V portable CLINICAL HISTORY: Dyspnea COMPARISON STUDY: Chest radiograph and chest CT September 25, 2022. FINDINGS: Status post median sternotomy. Mild cardiomegaly is unchanged. Asymmetric right hilar mass-like enlargement is present. Left hilum is normal. There is a trace right pleural effusion. No pneumothorax is present. Pulmonary vascular congestion. Left basilar opacity similar to prior exam and favors atelectasis. IMPRESSION: 1. Asymmetric right hilar mass-like enlargement. Although this could be due to pulmonary vessels, a mass or lymphadenopathy cannot be excluded. Chest CT with contrast is recommended. 2. Cardiomegaly with pulmonary vascular congestion. Trace right pleural effusion. 3. Left basilar opacity which likely reflects atelectasis. ACT 112: Positive. There are findings on this exam that require communication between the performing entity and the patient following Patient Test Result Information Act ([place] Act 112) guidelines. Electronically signed by: Nam Delgado M.D. 03/15/2024 2:42 PM Chest CTA 03/15/24 15:02 CHEST CTA for PULMONARY ARTERIES CT DOSE: 727.07 mGy.cm HISTORY: Shortness of breath. TECHNIQUE: Multiaxial CT images of the chest were performed following the intravenous administration of contrast to evaluate the pulmonary arteries. 3D/Maximal intensity projection images were also obtained. Sagittal and coronal reformations were also reviewed. A dose lowering technique was utilized adhering to the principles of ALARA. COMPARISON STUDY: Chest CTA 09/25/2022. FINDINGS: Postoperative changes consistent with graft repair of an ascending thoracic aortic aneurysm. No evidence for an aortic dissection. 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 This remains unchanged. No filling defects within the pulmonary arteries to suggest a pulmonary embolus. However, there is mass effect within the right central pulmonary arteries due to the mediastinal/hilar mass with moderate narrowing of the right upper lobe pulmonary arteries. The heart is normal in size. There is a small right pleural effusion. No pericardial effusion. Limited views of the upper abdomen demonstrate normal liver and spleen. Right anterior diaphragmatic lymphadenopathy measuring up to 2.2 cm consistent with metastatic disease. A few subcentimeter thyroid nodules. These do not meet CT criteria for follow-up. Normal caliber esophagus. There are poststernotomy changes. No suspicious lytic or blastic osseous lesions. Emphysema. No pneumothorax. The right upper lobe bronchus is opacified/obstructed by the right hilar mass. There is also moderate to severe narrowing of the bronchus intermedius due to an endobronchial component of the right hilar mass. This is best seen image 114. The left central airways are patent. There is a 2.1 cm nodule within the left upper lobe abutting the mediastinum on image 153. This likely represents metastatic disease. Biapical pleural-parenchymal nodular densities remain stable and favor scarring. Small focal peripheral consolidation within the right upper lobe anteriorly may represent a postobstructive pneumonitis. There is been interval development of a large right hilar/upper lobe mass which invades into the mediastinum. This results in approximately 75% narrowing of the SVC without evidence for occlusion at this time. This mass extends in to the right paratracheal and subcarinal locations. No left hilar lymphadenopathy. This mass measures approximately 10 x 8 cm and encases multiple right pulmonary arteries and invades into the right upper lobe bronchi and bronchus intermedius. IMPRESSION: 1. No evidence for pulmonary embolus. 2. Interval development of a large right hilar/upper lobe mass measuring 10 x 8 cm described above. This is highly suspicious for a primary bronchogenic malignancy. 3. Right anterior diaphragmatic lymphadenopathy likely represents metastatic disease. 4. There is a 2.1 cm left upper lobe nodule abutting the mediastinum likely representing metastatic disease. 5. Small right pleural effusion which may represent a malignant pleural effusion. 6. This right hilar/upper lobe mass results in mass effect along the right pulmonary arteries as well as invasion into the right upper lobe bronchus and bronchus intermedius as described above. 7. This mass also results in severe narrowing of the SVC without evidence for occlusion at this time. 8. Additional findings as described above. ACT 112: Negative or not required by law. Electronically signed by: Martin Granados M.D. 03/15/2024 5:06 PM Abdomen/Pelvis CT 03/15/24 19:03 CT OF THE ABDOMEN AND PELVIS WITH CONTRAST CLINICAL HISTORY: Evaluate for metastatic disease. COMPARISON STUDY: CTA of the abdomen and pelvis September 25, 2022. Abdominal ultrasound June 22, 2017. TECHNIQUE: Following IV administration of 89 mL of Optiray, axial images of the abdomen and pelvis were obtained from the lung bases to the proximal femurs. Images were reviewed in the axial, sagittal, and coronal planes. IV contrast was administered without complication. Automated exposure control was utilized for the study. A dose lowering technique was utilized adhering to the principles of ALARA. Oral contrast was administered. FINDINGS: A small right pleural effusion is. A 2.8 x 1.9 cm right cardiophrenic angle lymph node on image 42 of 361 is present. There are no suspicious hepatic lesions. 9 mm lateral segment hypodense hepatic lesion is unchanged and CTA of September 25, 2022. This is benign. Spleen, kidneys and pancreas are unremarkable with exception of the left lower pole renal cyst. Left adrenal nodule measures 1.9 cm. Although suboptimally assessed on prior exam, this was likely present on CT of September 25, 2022. Mild nodularity of the right adrenal gland is also likely similar to prior CTA. The infrarenal abdominal aorta is ectatic, measuring 2.9 cm. There is extensive aortoiliac calcified plaque. No abdominal or pelvic lymphadenopathy is present. Prominent left retroperitoneal vessels are unchanged. No evidence for a bowel obstruction. The caliber and wall thickness of small and large bowel are normal. Postoperative findings within the spine are incidentally noted. No suspicious lesions are identified within the visualized skeletal structures. IMPRESSION: 1. No definite evidence for metastatic disease within the abdomen or pelvis. 2. 1.9 cm left adrenal nodule. This was likely present on CT of September 25, 2022. Although likely benign, this could be assessed with a PET/CT as indicated. 3. Pathologic right cardiophrenic angle lymph node. Small right pleural effusion. A malignant effusion cannot be excluded. ACT 112: Negative or not required by law. Electronically signed by: Nam Delgado M.D. 03/16/2024 7:[address] 03/16/24 08:29 CT head/brain wo/w con CT DOSE: 3111.05 mGy.cm CLINICAL HISTORY: Lung cancer. Assess for metastatic disease. TECHNIQUE: Multiaxial CT images of the head were performed both before and after intravenous administration of contrast. A dose lowering technique was utilized adhering to the principles of ALARA. COMPARISON STUDY: None. FINDINGS: Mild mucosal thickening within the ethmoid air cells. There are few opacified right inferior mastoid air cells. Multiple opacified left mastoid air cells are noted. No suspicious lytic or blastic osseous lesions. No calvarial fractures. There is mild motion artifact. The ventricles and sulci are within normal limits. There is no mass, hematoma, midline shift, acute infarct. Postcontrast sequences show no areas of abnormal enhancement. IMPRESSION: No evidence for intracranial metastatic disease. ACT 112: Negative or not required by law. Electronically signed by: Martin Granados M.D. 03/16/2024 4:[address] 03/16/24 21:54 Exam(s): CT HEAD Without Contrast EXAM: CT Head Without Intravenous Contrast CLINICAL HISTORY: Reason for exam: CVA. TECHNIQUE: Axial computed tomography images of the head/brain without intravenous contrast. CTDI is 45.33 mGy and DLP is 677.48 mGy-cm. Automated exposure control was utilized for the study. A dose lowering technique was utilized adhering to the principles of ALARA. COMPARISON: 03/16/2024 FINDINGS: Brain: No hemorrhage, extra-axial fluid collection, mass effect, or edema. Ventricles: Unremarkable. Bones/joints: Unremarkable. No fracture. Soft tissues: Unremarkable. Sinuses: No acute sinusitis. Mastoid air cells: Left mastoid effusion. IMPRESSION: 1. No acute intracranial abnormality. 2. Left mastoid effusion. Electronically signed by: Tom Nguyen MD 03/16/24 22:39 PM Head CTA 03/16/24 21:54 Exam(s): CTA HEAD With Contrast IV Amt: 116 ml opti 320 EXAM: CT Angiography Head With Intravenous Contrast CLINICAL HISTORY: Reason for exam: CVA?. TECHNIQUE: Axial computed tomographic angiography images of the head with intravenous contrast. CTDI is 58.49 mGy and DLP is 624.41 mGy-cm. Automated exposure control was utilized for the study. A dose lowering technique was utilized adhering to the principles of ALARA. MIP reconstructed images were created and reviewed. CONTRAST: Patient received 116 ml opti 320 of IV contrast COMPARISON: No relevant prior studies available. FINDINGS: Right internal carotid artery: No limiting atherosclerotic calcifications within the right ICA. No flow-limiting stenosis. No aneurysm. Right anterior cerebral artery: Unremarkable. No occlusion or significant stenosis. No aneurysm. Right middle cerebral artery: Unremarkable. No occlusion or significant stenosis. No aneurysm. Right posterior cerebral artery: Unremarkable. No occlusion or significant stenosis. No aneurysm. Right vertebral artery: Unremarkable as visualized. Left internal carotid artery: Atherosclerotic calcifications within the left ICA. No flow-limiting stenosis. No aneurysm. Left anterior cerebral artery: Unremarkable. No occlusion or significant stenosis. No aneurysm. Left middle cerebral artery: Unremarkable. No occlusion or significant stenosis. No aneurysm. Left posterior cerebral artery: Unremarkable. No occlusion or significant stenosis. No aneurysm. Left vertebral artery: No flow-limiting atherosclerotic calcifications within the left vertebral artery. Basilar artery: Unremarkable. No occlusion or significant stenosis. No aneurysm. IMPRESSION: No acute findings in the arteries of the head/brain. Electronically signed by: Tom Nguyen MD 03/16/24 22:41 PM Neck CTA 03/16/24 21:54 Exam(s): CTA NECK With Contrast IV Amt: 116 ml opti 320 EXAM: CT Angiography Neck With Intravenous Contrast CLINICAL HISTORY: Reason for exam: CVA?. TECHNIQUE: Routine carotid CT angiography protocol was performed with intravenous contrast. NASCET criteria using the distal ICAs for comparison were used for evaluation of stenoses. CTDI is 64.34 mGy and DLP is 961.59 mGy-cm. Automated exposure control was utilized for the study. A dose lowering technique was utilized adhering to the principles of ALARA. MIP reconstructed images were created and reviewed. CONTRAST: Patient received 116 ml opti 320 of IV contrast COMPARISON: None. FINDINGS: VASCULATURE: Right common carotid artery: Unremarkable. No occlusion or significant stenosis. No dissection. Right internal carotid artery: Atherosclerotic calcifications at the right carotid bulb. No flow-limiting stenosis. Right external carotid artery: Severe stenosis at the ostia of the right external carotid artery. Right vertebral artery: Unremarkable. No occlusion or significant stenosis. No dissection. Left common carotid artery: Unremarkable. No occlusion or significant stenosis. No dissection. Left internal carotid artery: Non flow-limiting atherosclerotic calcifications within the proximal left ICA. Left vertebral artery: Unremarkable. No occlusion or significant stenosis. No dissection. NECK: Bones/joints: Unremarkable. No acute fracture. Soft tissues: Unremarkable. Lung apices: Nodular airspace opacities in the upper lobes and a small right pleural effusion. CAROTID STENOSIS REFERENCE USING NASCET CRITERIA: % ICA stenosis = (1 - narrowest ICA diameter/diameter of distal cervical ICA) x 100. Mild - <50% stenosis. Moderate - 50-69% stenosis. Severe - 70-94% stenosis. Near occlusion - 95-99% stenosis. Occluded - 100% stenosis. IMPRESSION: 1. No flow-limiting stenosis. 2. Nodular airspace opacities in the upper lobes and a small right pleural effusion. Electronically signed by: Tom Nguyen MD 03/16/24 22:43 PM Chest X-Ray 03/17/24 09:01 XR chest 1V portable CLINICAL HISTORY: resp distress TECHNIQUE: Single frontal radiograph of the chest was obtained. Comparison: Comparison is made to chest radiograph 03/15/[address] chest 03/15 FINDINGS: No lines and tubes are seen. Right mediastinal mass is seen, unchanged from prior exam. Airspace opacities are in the right greater than left lower lobe. Small right and trace left pleural effusions are seen. IMPRESSION: 1. Interval increase in small right and trace left pleural effusions with underlying airspace opacities which may represent atelectasis. 2. Again seen is right hilar mass. ACT 112: Negative or not required by law. Electronically signed by: Umesh De Leon M.D. 03/17/2024 9:28 AM PG Care Time/CCT Total # of Minutes Spent Total Time Spent with Patient: Total time spent is greater than 50% in coordination of care (as documented) at patient's floor/unit and/or counseling patient: I spent 105 minutes overall addressing this case: 20 min in medical data review/discussion with referring provider(s) and/or preparation for the visit 20 min in direct interaction with the patient/exam 30 min in Advance Care Planning/Goals of Care discussions as de tailed above in note (must be >16min) 15 min in subsequent review and synthesis of assessment and plan 20 min communicating with other providers regarding the patient's case: primary team, oncology, rad onc, nursing Advanced Care Planning 74011 Advanced Care Planning 30 [place] [address] IN/OBS CONSULT LVL 5,80M (25 - SIGNIFICANT, SEPARATELY IDENTIFIABLE ) Patient Type New Medical Decision Making High Complexity Diagnoses Refractory nausea and vomiting R11.2 Dyspnea and respiratory abnormalities R06.00; R06.89 Weakness generalized R53.1 Small cell lung cancer C34.90 Palliative care by specialist Z51.5 Advanced care planning/counseling discussion Z71.89 Additional Codes Advanced Care Planning - 30324 Advanced Care Planning 30 Min: 45749 Advanced Care Planning 30 Min ([id number])
[2024-03-18] MEDS: APIXABAN 5 MG TABLET PO SCH (20:10)
[2024-03-19 06:55] LABS: Basophils # (auto) 0.01 K/uL (0.00-0.20); Basophils % (auto) 0.1 %; Hematocrit (blood only) 36.8 % (37.0-47.0); Immature Granulocytes # (auto) 0.05 K/uL (0.01-0.20); Immature Granulocytes % (auto) 0.4 %; Lymphocytes % (auto) 4.2 %; Mean Corpuscular Hemoglobin 30.8 pg (25.0-34.0); Mean Corpuscular Hgb Conc 32.6 g/dL (32.0-36.0); Mean Corpuscular Volume 94.4 fL (80.0-100.0); Mean Platelet Volume 9.7 fL (9.4-12.4); Monocytes # (auto) 0.84 K/uL (0.11-0.59); Monocytes % (auto) 7.1 %; Neutrophils # (auto) 10.37 K/uL (1.40-6.50); Neutrophils % (auto) 88.2 %; Platelet Count 211 K/uL (130-400); RDW Coefficient of Variation 12.8 % (11.5-14.5); RDW Standard Deviation 43.9 fL (36.4-46.3); White Blood Count 11.77 K/ul (4.8-10.8)
--- NOTE | 2024-03-19 07:20 | Hematology/Oncology Prog Note ---
Date of Service March 19, 2024 Assessment & Plan (1) Small cell lung cancer: (2) Refractory nausea and vomiting: (3) Dyspnea and respiratory abnormalities: Plan -Labs stable s/p cycle 1 day 1 of carboplatin/etoposide on 03/18/2024. Proceed with Cycle 1 day 2 of treatment with single agent etoposide today. She will receive Cycle 1 day 3 of etoposide tomorrow followed by GCSF 24 hours after -Zofran and compazine prn for nausea Admission and Anticipated Discharge Date Admission Date: March 15, 2024 Subjective Biopsy confirmed small cell lung cancer. Received cycle 1 day 1 of carbo/etoposide yesterday Results & Data Vital Signs (Past 12 Hours) Vital Signs Temp Pulse Resp BP Pulse Ox O2 Del Method O2 Flow Rate 03/19/24 05:10 88 22 91 Oxymask 7 03/19/24 03:32 170/74 H 03/19/24 02:40 36.6 C 87 20 184/82 H 95 Oxymask 6 03/18/24 22:51 36.6 C 63 19 128/62 98 Oxymask 6 03/18/24 21:17 36.8 C 70 22 190/71 H 100 Oxymask 6 03/18/24 20:10 Oxymask 4 03/18/24 19:39 36.6 C 93 H 18 158/71 H 95 Oxymask 4
[2024-03-19] MEDS: ASPIRIN 81 MG ECTAB PO SCH (09:39)
[2024-03-19] MEDS: PALONOSETRON 0.25 MG in SYRINGE 0 ML IV SCH (09:39)
--- NOTE | 2024-03-19 11:02 | Hospitalist Progress Note ---
Date of Service March 19, 2024 Assessment & Plan (1) Acute hypoxic respiratory failure: (2) Suspected malignant neoplasm of lung: (3) Myoclonic jerking: (4) Acute kidney injury: (5) Lymphadenopathy, mediastinal: (6) SVC obstruction: (7) Paroxysmal atrial fibrillation: (8) Hypokalemia: (9) Mild right ventricular systolic dysfunction: (10) Postobstructive pneumonia: Plan Ms. Camacho is an 83-year-old female presents to the emergency room with acute hypoxic respiratory failure due to suspected lung malignancy and concern for metastatic disease. Bronchoscopy performed on 03/17. Rad Onc and Onc consulted to determine next steps for treatment. Post bronch complicated by worsening resp failure requiring bipap. Patient was weaned off of bipap and now on Oxymask, but with notable desaturation with movement. Radiation was attempted, however, patient unable to lay flat and now with extreme nausea complicating attempt with Rad/Onc, therefore postponed. Patient now undergoing on carboplatin day 1 (03/18/2024), etoposide day 1-3 which will be given IV q. 21-day cycle per heme/onc recommendations Now on cycle 1 day 2 #Acute hypoxic respiratory failure #Metastatic Small Cell Carcinoma #Large mediastinal mass #Postobstructive pna,r/o Biofire negative CT with large mass and associated LAD CT head, abd/pelvis ordered No evidence of post-obstructive pneumonia, discontinued abx per pulm Continue to hold eliquis and ASA resume tomorrow Pulm on consult, s/p bronch 03/17 Oxy IR for and Tylenol for pain control Wean O2 as able Cleared for ice chips s/p bronch -Advance per speech recommendations Question of type of cancer for next steps -Tentatively planning for radiation tomorrow -Rad onc following appreciate recommendations -Heme/Onc to follow, appreciate recommendations carboplatin day 1, etoposide day 1-3 which will be given IV q. 21-day cyc le.(03/18/2024) Will need OP PET/CT upon DC Palliative consult -Managing symptoms #SVC syndrome #HTN #Nonobstructive CAD #Valvular heart disease Hold diuretics (utilized prn as op) HOB elevated Continue Amlodipine 2.5 mg daily. continue asa Continue losartan 100mg daily #Stroke like symptoms #Myoclonic jerks -Statin started, resume asa/eliquis when able #Normocytic anemia Anemia labs ordered #Atrial fibrillation Stable rate today resume anticoagulation monitor on tele Continue Amiodarone 200 mg daily Continue Lopressor 50 mg b.i.d.. # Ascending Aortic Aneurysm Dissection s/p Repair CTM, BP control DVT scds, resume doac Conditional code: per admitting chest compressions are acceptable, no intubation; patient not with clear mentation at time of visit to readdress code status at this time Admission and Anticipated Discharge Date Admission Date: March 15, 2024 Physical Exam Constitutional: WD/WN, vitals as above Respiratory: diminshed breath sounds Gastrointestinal (Abdomen): normal bowel sounds, soft, nontender, no hepatosplenomegaly Results & Data Results & Data Vital Signs (Past 12 Hours) Vital Signs Temp Pulse Resp BP Pulse Ox O2 Del Method O2 Flow Rate 03/19/24 07:33 36.5 C 84 18 144/71 H 98 Oxymask 7 03/19/24 05:10 88 22 91 Oxymask 7 03/19/24 03:32 170/74 H 03/19/24 02:40 36.6 C 87 20 184/82 H 95 Oxymask 6 Laboratory Results Short CBC 03/19/24 Range/Units 06:30 WBC 11.77 H (4.8-10.8) K/ul Hgb 12.0 (12.0-16.0) g/dl Hct 36.8 L (37.0-47.0) % Plt Count 211 (130-400) K/uL Medications Administered Home Medications Medication Instructions Recorded Confirmed Last Taken multivitamin 1 tab PO QAM 06/03/19 03/15/24 03/15/24 amlodipine 2.5 mg tablet 2.5 mg PO QAM 09/23/22 03/15/24 03/15/24 buspirone 10 mg tablet 10 mg PO HS 09/23/22 03/15/24 03/14/24 calcium carbonate 600 mg-vitamin 1 tab PO HS 09/23/22 03/15/24 03/14/24 D3 20 mcg (800 unit) chewable tablet (Caltrate 600 plus D) apixaban 5 mg tablet 5 mg PO BID #180 tabs 11/02/22 03/15/24 03/15/24 08:00 aspirin 81 mg tablet,delayed 81 mg PO QAM 11/13/22 03/15/24 03/15/24 release (Adult Low Dose Aspirin) albuterol sulfate 90 mcg/actuation 2 puff inhalation QID PRN 01/01/23 03/15/24 Unknown aerosol inhaler shortness of breath or wheezing #8.5 grams metoprolol tartrate 50 mg tablet 50 mg PO BID #180 tabs 09/05/23 03/15/24 03/15/24 08:00 amiodarone 200 mg tablet 200 mg PO DAILY #90 tabs 02/08/24 03/15/24 03/15/24 bumetanide 2 mg tablet 3 mg PO DAILY 03/15/24 03/15/24 03/15/24 gabapentin 300 mg capsule 300 mg PO BID 03/15/24 03/15/24 03/15/24 08:00 losartan 100 mg tablet 100 mg PO HS 03/15/24 03/15/24 03/14/24 potassium chloride 10 mEq 10 meq PO BID 03/15/24 03/15/24 03/15/24 08:00 capsule,extended release Active Medications Generic Name Dose Route Start Last Admin Trade Name Freq PRN Reason Stop Dose Admin Acetaminophen 650 mg 03/15/24 20:34 03/17/24 17:42 Acetaminophen 325 Mg Tab PO 04/14/24 20:33 650 mg Q4H PRN Administration Pain or Fever Albuterol 2 puffs 03/15/24 20:34 03/19/24 05:08 Albuterol Hfa 8 Gm Inhaler INH 04/14/24 20:33 2 puffs Q4 PRN Administration shortness of breath or wheezin Amiodarone HCl 200 mg 03/16/24 09:00 03/19/24 09:40 Amiodarone 200 Mg Tab PO 04/15/24 08:59 200 mg DAILY JOSE Administration Amlodipine Besylate 2.5 mg 03/16/24 09:00 03/19/24 09:39 Amlodipine Besylate 5 Mg Tab PO 04/15/24 08:59 2.5 mg QAM JOSE Administration Apixaban 5 mg 03/18/24 21:00 03/19/24 09:39 Apixaban 5 Mg Tablet PO 04/17/24 20:59 5 mg BID JOSE Administration Aspirin 81 mg 03/19/24 09:00 03/19/24 09:39 Aspirin 81 Mg Ectab PO 04/18/24 08:59 81 mg QAM JOSE Administration Atorvastatin Calcium 40 mg 03/17/24 21:00 03/18/24 20:11 Atorvastatin 40 Mg Tab PO 04/16/24 20:59 40 mg HS JOSE Administration Buspirone HCl 10 mg 03/15/24 21:00 03/18/24 20:13 Buspirone 5 Mg Tab PO 04/14/24 20:59 10 mg HS JOSE Administration Gabapentin 300 mg 03/15/24 21:00 03/19/24 09:39 Gabapentin 300 Mg Cap PO 04/14/24 20:59 300 mg BID JOSE Administration Hydromorphone HCl 0.25 mg 03/17/24 14:46 03/18/24 07:45 Hydromorphone Inj 0.5 Mg/0.5 Ml Syr IV 03/31/24 14:45 0.25 mg Q6H PRN Administration Severe Pain (Scale 7, 8, 9,10) Lorazepam 0.5 mg 03/15/24 20:34 03/19/24 04:48 Lorazepam 0.5 Mg Tab PO 04/14/24 20:33 0.5 mg Q6 PRN Administration Anxiety Losartan Potassium 100 mg 03/15/24 21:00 03/18/24 20:11 Losartan Potassium 50 Mg Tab PO 04/14/24 20:59 100 mg HS JOSE Administration Metoprolol Tartrate 50 mg 03/15/24 21:00 03/19/24 09:40 Metoprolol Tartrate 50 Mg Tab PO 04/14/24 20:59 50 mg BID JOSE Administration Oxycodone HCl 5 mg 03/15/24 20:34 03/16/24 15:56 Oxycodone Hcl Ir 5 Mg Tab (Immediate Release) PO 03/29/24 20:33 5 mg Q4 PRN Administration Pain
[2024-03-19] MEDS ORDERED: dexAMETHasone 4 MG TAB PO SCH (12:00)
[2024-03-19] MEDS: dexAMETHasone 4 MG TAB PO SCH (13:44)
[2024-03-19] MEDS: ETOPOSIDE 140 MG in SODIUM CHLORIDE 0.9% 500 ML IV SCH (14:19)
[2024-03-19] MEDS: PROMETHAZINE HCL 6.25 MG in SODIUM CHLORIDE 0.9% 50 ML IV PRN (16:14)
[2024-03-20] MEDS: HYDROmorphone INJ 0.5 MG/0.5 ML SYR IV PRN (06:01)
[2024-03-20 06:29] LABS: Hematocrit (blood only) 37.6 % (37.0-47.0); Hemoglobin 12.3 g/dl (12.0-16.0); Mean Corpuscular Hemoglobin 30.9 pg (25.0-34.0); Mean Corpuscular Hgb Conc 32.7 g/dL (32.0-36.0); Mean Corpuscular Volume 94.5 fL (80.0-100.0); Mean Platelet Volume 10.2 fL (9.4-12.4); Platelet Count 241 K/uL (130-400); RDW Standard Deviation 44.6 fL (36.4-46.3); Red Blood Count 3.98 M/uL (4.20-5.40); White Blood Count 12.53 K/ul (4.8-10.8)
[2024-03-20 06:42] LABS: BUN Creatinine Ratio 28.4 (10-20); Calcium 8.8 mg/dl (8.6-10.3); Creatinine Clr Calc Pharmacy 59.6 ml/min; Est GFR (African American) 94.2 ml/min; Est GFR (Non-African American) 81.3 ml/min; Magnesium 1.8 mg/dl (1.7-2.4); Phosphorus 2.7 mg/dl (2.5-4.9); Potassium 3.7 mmol/L (3.5-5.1)
--- NOTE | 2024-03-20 10:02 | Pulmonology Progress Note ---
Date of Service March 20, 2024 Assessment & Plan (1) SVC obstruction: (2) Suspected malignant neoplasm of lung: (3) Abnormal CT scan of lung: Plan Impression: 83-year-old female with small cell lung cancer currently on chemotherapy Recommendations: 1. Small cell lung cancer: Given impending SVC syndrome, chemotherapy has been urgently initiated. Patient is having significant side effects. She is scheduled to receive an additional dose today which she states she will try but she is unclear whether she wants to pursue additional therapy after this or not. 2. Hypoxemia: Multifactorial. Continue to wean oxygen as tolerated. Overall the patient's prognosis is guarded. At this point in time, I do not think pulmonary has anything else to offer. If the patient has increasing respiratory symptoms, repeating a chest x-ray might be appropriate and if the effusion increases in size, could consider palliative thoracentesis at that point in time. Please contact us if we can be of additional assistance. Admission and Anticipated Discharge Date Admission Date: March 15, 2024 Subjective Patient seen and examined. EMR reviewed. The patient states that she is doing horribly. She is nauseous and having pain. She states her breathing is poor. She is not able to sleep. She believes these effects are all related to chemotherapy. She is scheduled to receive additional chemotherapy today but is unclear whether she is going to continue it in the long-term. She has met with palliative care. Review of Systems 2 Review of Systems: All systems reviewed & are unremarkable except as noted in Subjective Physical Exam 2 ENMT: Mallampati Class: III Neck: trachea midline, no thyromegaly Respiratory: + tachypneic; no respiratory distress Auscultation: + rhonchi Cardiovascular: RRR, no murmur, no edema Gastrointestinal (Abdomen): normal bowel sounds, soft, nontender, no hepatosplenomegaly Musculoskeletal: Extremities: extremities normal to inspection Skin: no rashes, warm and dry Lymphatic: no cervical lymphadenopathy Results & Data Results & Data Vital Signs (Past 12 Hours) Vital Signs Temp Pulse Pulse Resp BP Pulse Ox O2 Del Method 03/20/24 07:23 36.7 C 89 18 151/71 H 98 Oxymask 03/20/24 06:04 159/77 H 03/20/24 05:19 36.5 C 94 H 19 179/81 H 93 Oxymask 03/20/24 00:57 88 31 H 92 05/26/24 00:51 88 22 89 L Oxymask 03/20/24 00:29 36.4 C L 80 20 152/76 H 94 Nasal Cannula O2 Flow Rate FiO2 03/20/24 07:23 6 03/20/24 06:04 03/20/24 05:19 6 03/20/24 00:57 60 03/20/24 00:51 8 03/20/24 00:29 4 Laboratory Results 03/20/24 05:51 03/20/24 05:51 PG Care Time/CCT Total # of Minutes Spent Total Time Spent with Patient: Total time spent is greater than 50% in coordination of care (as documented) at patient's floor/unit and/or counseling patient: Coding Level of Care Code 74974 SUB INP/OBS CARE 2/35MIN Diagnoses SVC obstruction I87.1 Suspected malignant neoplasm of lung R68.[address] scan of lung R91.8
--- NOTE | 2024-03-20 11:37 | Hospitalist Progress Note ---
Date of Service March 20, 2024 Assessment & Plan (1) Acute hypoxic respiratory failure: (2) Suspected malignant neoplasm of lung: (3) Myoclonic jerking: (4) Acute kidney injury: (5) Lymphadenopathy, mediastinal: (6) SVC obstruction: (7) Paroxysmal atrial fibrillation: (8) Hypokalemia: (9) Mild right ventricular systolic dysfunction: (10) Postobstructive pneumonia: Plan Ms. Camacho is an 83-year-old female presents to the emergency room with acute hypoxic respiratory failure due to suspected lung malignancy and concern for metastatic disease. Bronchoscopy performed on 03/17. Rad Onc and Onc consulted to determine next steps for treatment. Post bronch complicated by worsening resp failure requiring bipap. Patient was weaned off of bipap and now on Oxymask, but with notable desaturation with movement. Radiation was attempted, however, patient unable to lay flat and now with extreme nausea complicating attempt with Rad/Onc, therefore postponed. Patient now undergoing on carboplatin day 1 (03/18/2024), etoposide day 1-3 which will be given IV q. 21-day cycle per heme/onc recommendations Now on cycle 1 day 3 #Acute hypoxic respiratory failure #Metastatic Small Cell Carcinoma #Large mediastinal mass #Postobstructive pna,r/o Biofire negative CT with large mass and associated LAD CT head, abd/pelvis ordered No evidence of post-obstructive pneumonia, discontinued abx per pulm Continue to hold eliquis and ASA resume tomorrow Pulm on consult, s/p bronch 03/17 Oxy IR for and Tylenol for pain control Wean O2 as able Cleared for ice chips s/p bronch -Advance per speech recommendations Question of type of cancer for next steps -Tentatively planning for radiation tomorrow -Rad onc following appreciate recommendations -Heme/Onc to follow, appreciate recommendations carboplatin day 1, etoposide day 1-3 which will be given IV q. 21-day cyc le.(03/18/2024) Will need OP PET/CT upon DC Palliative consult -Managing symptoms Trial olanzapine OD given continued nausea CXR today #SVC syndrome #HTN #Nonobstructive CAD #Valvular heart disease Hold diuretics (utilized prn as op) HOB elevated Continue Amlodipine 2.5 mg daily. continue asa Continue losartan 100mg daily #Stroke like symptoms #Myoclonic jerks -Statin started, resume asa/eliquis when able #Normocytic anemia Anemia labs ordered #Atrial fibrillation Stable rate today resume anticoagulation monitor on tele Continue Amiodarone 200 mg daily Continue Lopressor 50 mg b.i.d.. # Ascending Aortic Aneurysm Dissection s/p Repair CTM, BP control DVT scds, resume doac Conditional code: per admitting chest compressions are acceptable, no intubation; patient not with clear mentation at time of visit to readdress code status at this time Admission and Anticipated Discharge Date Admission Date: March 15, 2024 Subjective NAEO Reports ongoing headache, respiratory concerns, and nausea Today is day three of therapy Patient wishes to keep proceeding forward but feels very tired and is very uncomfortable Physical Exam Constitutional: frail, conversationally dyspneic Respiratory: coarse breath sounds Cardiovascular: diminshed 2/2 respiratory effort Results & Data Results & Data Vital Signs (Past 12 Hours) Vital Signs Temp Pulse Pulse Resp BP Pulse Ox O2 Del Method 03/20/24 08:00 78 03/20/24 08:00 Oxymask 03/20/24 07:23 36.7 C 89 18 151/71 H 98 Oxymask 03/20/24 06:04 159/77 H 03/20/24 05:19 36.5 C 94 H 19 179/81 H 93 Oxymask 03/20/24 00:57 88 31 H 92 03/20/24 00:51 88 22 89 L Oxymask 03/20/24 00:29 36.4 C L 80 20 152/76 H 94 Nasal Cannula O2 Flow Rate FiO2 03/20/24 08:00 03/20/24 08:00 5 03/20/24 07:23 6 03/20/24 06:04 03/20/24 05:19 6 03/20/24 00:57 60 03/20/24 00:51 8 03/20/24 00:29 4 Laboratory Results Short CBC 03/20/24 Range/Units 05:51 WBC 12.53 H (4.8-10.8) K/ul Hgb 12.3 (12.0-16.0) g/dl Hct 37.6 (37.0-47.0) % Plt Count 241 (130-400) K/uL BMP 03/20/24 05:51 Sodium 135 L Potassium 3.7 Chloride 92 L Carbon Dioxide 37 H BUN 19 Creatinine 0.67 Glucose 135 H Calcium 8.8 Medications Administered Home Medications Medication Instructions Recorded Confirmed Last Taken multivitamin 1 tab PO QAM 06/03/19 03/15/24 03/15/24 amlodipine 2.5 mg tablet 2.5 mg PO QAM 09/23/22 03/15/24 03/15/24 buspirone 10 mg tablet 10 mg PO 09/23/22 03/15/24 03/14/24 calcium carbonate 600 mg-vitamin 1 tab PO 09/23/22 03/15/24 03/14/24 D3 20 mcg (800 unit) chewable tablet (Caltrate 600 plus D) apixaban 5 mg tablet 5 mg PO BID #180 tabs 11/02/22 03/15/24 03/15/24 08:00 aspirin 81 mg tablet,delayed 81 mg PO [facility] 11/13/22 03/15/24 03/15/24 release (Adult Low Dose Aspirin) albuterol sulfate 90 mcg/actuation 2 puff inhalation QID PRN 01/01/23 03/15/24 Unknown aerosol inhaler shortness of breath or wheezing #8.5 grams metoprolol tartrate 50 mg tablet 50 mg PO BID #180 tabs 09/05/23 03/15/24 03/15/24 08:00 amiodarone 200 mg tablet 200 mg PO DAILY #90 tabs 02/08/24 03/15/24 03/15/24 bumetanide 2 mg tablet 3 mg PO DAILY 03/15/24 03/15/24 03/15/24 gabapentin 300 mg capsule 300 mg PO BID 03/15/24 03/15/24 03/15/24 08:00 losartan 100 mg tablet 100 mg PO 03/15/24 03/15/24 03/14/24 potassium chloride 10 mEq 10 meq PO BID 03/15/24 03/15/24 03/15/24 08:00 capsule,extended release Active Medications Generic Name Dose Route Start Last Admin Trade Name Freq PRN Reason Stop Dose Admin Acetaminophen 650 mg 03/15/24 20:34 03/20/24 10:27 Acetaminophen 325 Mg Tab PO 04/14/24 20:33 650 mg Q4H PRN Administration Pain or Fever Albuterol 2 puffs 03/15/24 20:34 03/20/24 00:50 Albuterol Hfa 8 Gm Inhaler INH 04/14/24 20:33 2 puffs Q4 PRN Administration shortness of breath or wheezin Amiodarone HCl 200 mg 03/16/24 09:00 03/20/24 10:27 Amiodarone 200 Mg Tab PO 04/15/24 08:59 200 mg DAILY JOSE Administration Amlodipine Besylate 2.5 mg 03/16/24 09:00 03/20/24 10:27 Amlodipine Besylate 5 Mg Tab PO 04/15/24 08:59 2.5 mg QAM JOSE Administration Apixaban 5 mg 03/18/24 21:00 03/20/24 10:27 Apixaban 5 Mg Tablet PO 04/17/24 20:59 5 mg BID JOSE Administration Aspirin 81 mg 03/19/24 09:00 03/20/24 10:27 Aspirin 81 Mg Ectab PO 04/18/24 08:59 81 mg QAM JOSE Administration Atorvastatin Calcium 40 mg 03/17/24 21:00 03/19/24 20:53 Atorvastatin 40 Mg Tab PO 04/16/24 20:59 40 mg HS JOSE Administration Buspirone HCl 10 mg 03/15/24 21:00 03/19/24 20:54 Buspirone 5 Mg Tab PO 04/14/24 20:59 10 mg HS JOSE Administration Dexamethasone 8 mg 03/19/24 14:00 03/19/24 13:44 Dexamethasone 4 Mg Tab PO 03/20/24 14:01 8 mg DAILY@1400 JOSE Administration Gabapentin 300 mg 03/15/24 21:00 03/20/24 10:27 Gabapentin 300 Mg Cap PO 04/14/24 20:59 300 mg BID JOSE Administration Hydromorphone HCl 0.25 mg 03/17/24 14:46 03/18/24 07:45 Hydromorphone Inj 0.5 Mg/0.5 Ml Syr IV 03/31/24 14:45 0.25 mg Q6H PRN Administration Severe Pain (Scale 7, 8, 9,10) Hydromorphone HCl 0.25 mg 03/18/24 11:51 03/20/24 06:01 Hydromorphone Inj 0.5 Mg/0.5 Ml Syr IV 04/01/24 11:50 0.25 mg Q3H PRN Administration Pain, dyspnea Promethazine HCl 6.25 mg/ 50.25 mls @ 201 mls/hr 03/18/24 13:52 03/20/24 07:27 Sodium Chloride IV 04/17/24 13:51 Infused Q6H PRN Infusion Nausea And Vomiting Etoposide 140 mg/ Sodium 507 mls @ 507 mls/hr 03/19/24 14:30 03/19/24 15:30 Chloride IV 03/20/24 15:29 Infused DAILY@1430 JOSE Infusion Protocol Lorazepam 0.5 mg 03/15/24 20:34 03/20/24 00:31 Lorazepam 0.5 Mg Tab PO 04/14/24 20:33 0.5 mg Q6 PRN Administration Anxiety Losartan Potassium 100 mg 03/15/24 21:00 03/19/24 20:54 Losartan Potassium 50 Mg Tab PO 04/14/24 20:59 100 mg HS JOSE Administration Metoprolol Tartrate 50 mg 03/15/24 21:00 03/20/24 10:27 Metoprolol Tartrate 50 Mg Tab PO 04/14/24 20:59 50 mg BID JOSE Administration Oxycodone HCl 5 mg 03/15/24 20:34 03/16/24 15:56 Oxycodone Hcl Ir 5 Mg Tab (Immediate Release) PO 03/29/24 20:33 5 mg Q4 PRN Administration Pain
[2024-03-20] MEDS ORDERED: PALONOSETRON 0.25 MG in SYRINGE 0 ML IV SCH (12:00)
--- NOTE | 2024-03-20 12:41 | XRay Report ---
XR chest 1V portable CLINICAL HISTORY: ongoing resp symptoms, r/o effusion TECHNIQUE: Single frontal radiograph of the chest was obtained. Comparison: Comparison is made to chest radiograph 03/17/2024 FINDINGS: Median sternotomy wires are unchanged. Calcified aortic knob is seen. Right hilar mass is seen. Right lower lung airspace opacity is seen compatible with atelectasis. Small right pleural effusion, uncha nged. IMPRESSION: 1. Stable small right pleural effusion. Left pleural effusion is more well seen. 2. Right hilar mass is again seen. ACT 112: Negative or not required by law. Electronically signed by: Umesh De Leon M.D. 03/20/2024 12:39 PM
[2024-03-20] MEDS: PALONOSETRON 0.25 MG in SYRINGE 0 ML IV SCH (13:45)
--- NOTE | 2024-03-21 06:02 | Hematology/Oncology Prog Note ---
Date of Service March 21, 2024 Assessment & Plan (1) Small cell lung cancer: (2) Dyspnea and respiratory abnormalities: (3) Refractory nausea and vomiting: Plan She is s/p cycle 1 day 1-3 of carboplatin/etoposide. Complaining of headaches and persistent nausea which were both present prior to initiation of chemotherapy -Although, would ideally recommend MRI brain to rule out brain metastasis per notes she has a stent which would preclude this. Consider repeating CT head Wi th contrast for persistent headaches and nausea. -Recommend olanzapine 2.5 mg nightly x 4 days. -Consider Zofran 6 mg IV every 6 hours As well as Compazine 6 mg IV/IM every 6 hours for nausea -Possible radiation therapy tomorrow Admission and Anticipated Discharge Date Admission Date: March 15, 2024 Subjective Complains of nausea, persistent headaches.Still tachypneic. Symptoms were present prior to initiation of chemotherapy.Received cycle 1, day 3 of etoposide yesterday. Scheduled to receive GCSF today Results & Data Vital Signs (Past 12 Hours) Vital Signs Temp Pulse Pulse Resp BP Pulse Ox O2 Del Method 03/21/24 03:16 36.6 C 88 20 166/71 H 96 Nasal Cannula 03/20/24 22:28 95 H 22 94 Oxymask 03/20/24 22:00 94 H 03/20/24 21:49 Oxymask 03/20/24 20:51 36.6 C 85 18 148/69 H 96 Oxymask O2 Flow Rate 03/21/24 03:16 6 03/20/24 22:28 6 03/20/24 22:00 03/20/24 21:49 6 03/20/24 20:51 6
[2024-03-21 07:02] LABS: BUN Creatinine Ratio 37.7 (10-20); Calcium 8.6 mg/dl (8.6-10.3); Creatinine Clr Calc Pharmacy 65.4 ml/min; Est GFR (African American) 97.2 ml/min; Est GFR (Non-African American) 83.8 ml/min; Phosphorus 2.9 mg/dl (2.5-4.9); Potassium 3.9 mmol/L (3.5-5.1)
[2024-03-21 07:11] LABS: Hematocrit (blood only) 37.6 % (37.0-47.0); Hemoglobin 12.1 g/dl (12.0-16.0); Mean Corpuscular Hgb Conc 32.2 g/dL (32.0-36.0); Mean Corpuscular Volume 96.4 fL (80.0-100.0); Mean Platelet Volume 9.9 fL (9.4-12.4); Platelet Count 245 K/uL (130-400); RDW Coefficient of Variation 13.3 % (11.5-14.5); RDW Standard Deviation 47.4 fL (36.4-46.3); White Blood Count 10.14 K/ul (4.8-10.8)
[2024-03-21] MEDS: PALONOSETRON 0.25 MG in SYRINGE 0 ML IV SCH (10:03)
[2024-03-21] MEDS ORDERED: PROCHLORPERAZINE 5 MG in SYRINGE 4 ML IV PRN (14:40)
[2024-03-21] MEDS ORDERED: hydrALAZINE HCL 20 MG/ML VIAL IV PRN (14:42)
--- NOTE | 2024-03-21 14:44 | Hospitalist Progress Note ---
Date of Service March 21, 2024 Assessment & Plan (1) Acute hypoxic respiratory failure: (2) Suspected malignant neoplasm of lung: (3) Myoclonic jerking: (4) Acute kidney injury: (5) Lymphadenopathy, mediastinal: (6) SVC obstruction: (7) Paroxysmal atrial fibrillation: (8) Hypokalemia: (9) Mild right ventricular systolic dysfunction: (10) Postobstructive pneumonia: Plan Ms. Camacho is an 83-year-old female presents to the emergency room with acute hypoxic respiratory failure due to suspected lung malignancy and concern for metastatic disease. Bronchoscopy performed on 03/17. Rad Onc and Onc consulted to determine next steps for treatment. Post bronch complicated by worsening resp failure requiring bipap. Patient was weaned off of bipap and now on Oxymask, but with notable desaturation with movement. Radiation was attempted, however, patient unable to lay flat and now with extreme nausea complicating attempt with Rad/Onc, therefore postponed. Patient now undergoing on carboplatin day 1 (03/18/2024), etoposide day 1-3 which will be given IV q. 21-day cycle per heme/onc recommendations Now completed cycle 1 day /03/20. Pending eval for possible radiation tomorrow. #Acute hypoxic respiratory failure #Metastatic Small Cell Carcinoma #Large mediastinal mass #Postobstructive pna,r/o Biofire negative CT with large mass and associated LAD CT head, abd/pelvis ordered No evidence of post-obstructive pneumonia, discontinued abx per pulm Continue to eliquis and ASA Pulm on consult, s/p bronch 03/17 Oxy IR for and Tylenol for pain control Wean O2 as able Cleared for ice chips s/p bronch -Advance per speech recommendations Question of type of cancer for next steps -Tentatively planning for radiation tomorrow -Rad onc following appreciate recommendations -Will evaluate tomorrow to determine if patient able to tolerate radiation -Heme/Onc to follow, appreciate recommendations carboplatin day 1, etoposide day 1-3 which will be given IV q. 21-day cycle.(03/18/2024) -Completed 3 days -recommended CT head to r/o mets, ordered -Continue olanzipine 2.5 qhs for nausea/vomting related to chemo -Start compazine q6h and continue zofran Will need OP PET/CT upon DC Palliative consult -Managing symptoms CXR reviewed, similar to 03/17 imaging #SVC syndrome #HTN #Nonobstructive CAD #Valvular heart disease Hold diuretics (utilized prn as op) HOB elevated Continue Amlodipine 2.5 mg daily--> increased to 5daily, persistent HTN, close monitor continue asa Continue losartan 100mg daily #Stroke like symptoms #Myoclonic jerks -Statin started, continue asa/eliquis when able #Normocytic anemia Anemia labs: folate/b12 normal; iron 37, ferritin 58.4 Add iron PO #Atrial fibrillation Stable rate today resume anticoagulation monitor on tele Continue Amiodarone 200 mg daily Continue Lopressor 50 mg b.i.d.. # Ascending Aortic Aneurysm Dissection s/p Repair CTM, BP control DVT scds, resume doac Conditional code: per admitting chest compressions are acceptable, no intubation; patient not with clear mentation at time of visit to readdress code status at this time Admission and Anticipated Discharge Date Admission Date: March 15, 2024 Subjective NAEO Reports feeling her nausea is mildly improved with the olanzapine, but still with poor appetite States she is still SOB, but feels it is less "intense" Requested tomato soup Physical Exam Constitutional: still conversationally dyspneic, but more calm less erratic breathing Respiratory: diminshed 2/2 effort, no overt wheezing/rhonchi appreciated Results & Data Results & Data Vital Signs (Past 12 Hours) Vital Signs Temp Pulse Pulse Resp BP Pulse Ox O2 Del Method 03/21/24 11:57 36.7 C 83 19 183/75 H 91 Oxymask 03/21/24 08:00 87 03/21/24 07:47 36.8 C 102 H 18 193/95 H 92 Oxymask 03/21/24 03:16 36.6 C 88 20 166/71 H 96 Nasal Cannula O2 Flow Rate 03/21/24 11:57 6 03/21/24 08:00 03/21/24 07:47 6 03/21/24 03:16 6 Laboratory Results Short CBC 03/21/24 Range/Units 06:02 WBC 10.14 (4.8-10.8) K/ul Hgb 12.1 (12.0-16.0) g/dl Hct 37.6 (37.0-47.0) % Plt Count 245 (130-400) K/uL BMP 03/21/24 06:02 Sodium 142 Potassium 3.9 Chloride 99 Carbon Dioxide 40 H BUN 23 Creatinine 0.61 Glucose 131 H Calcium 8.6 Medications Administered Home Medications Medication Instructions Recorded Confirmed Last Taken multivitamin 1 tab PO QAM 06/03/19 03/15/24 03/15/24 amlodipine 2.5 mg tablet 2.5 mg PO QAM 09/23/22 03/15/24 03/15/24 buspirone 10 mg tablet 10 mg PO 09/23/22 03/15/24 03/14/24 calcium carbonate 600 mg-vitamin 1 tab PO 09/23/22 03/15/24 03/14/24 D3 20 mcg (800 unit) chewable tablet (Caltrate 600 plus D) apixaban 5 mg tablet 5 mg PO BID #180 tabs 11/02/22 03/15/24 03/15/24 08:00 aspirin 81 mg tablet,delayed 81 mg PO [facility] 11/13/22 03/15/24 03/15/24 release (Adult Low Dose Aspirin) albuterol sulfate 90 mcg/actuation 2 puff inhalation QID PRN 01/01/23 03/15/24 Unknown aerosol inhaler shortness of breath or wheezing #8.5 grams metoprolol tartrate 50 mg tablet 50 mg PO BID #180 tabs 09/05/23 03/15/24 03/15/24 08:00 amiodarone 200 mg tablet 200 mg PO DAILY #90 tabs 02/08/24 03/15/24 03/15/24 bumetanide 2 mg tablet 3 mg PO DAILY 03/15/24 03/15/24 03/15/24 gabapentin 300 mg capsule 300 mg PO BID 03/15/24 03/15/24 03/15/24 08:00 losartan 100 mg tablet 100 mg PO HS 03/15/24 03/15/24 03/14/24 potassium chloride 10 mEq 10 meq PO BID 03/15/24 03/15/24 03/15/24 08:00 capsule,extended release Active Medications Generic Name Dose Route Start Last Admin Trade Name Freq PRN Reason Stop Dose Admin Acetaminophen 650 mg 03/15/24 20:34 03/20/24 10:27 Acetaminophen 325 Mg Tab PO 04/14/24 20:33 650 mg Q4H PRN Administration Pain or Fever Albuterol 2 puffs 03/15/24 20:34 03/20/24 22:28 Albuterol Hfa 8 Gm Inhaler INH 04/14/24 20:33 2 puffs Q4 PRN Administration shortness of breath or wheezin Amiodarone HCl 200 mg 03/16/24 09:00 03/21/24 09:04 Amiodarone 200 Mg Tab PO 04/15/24 08:59 200 mg DAILY JOSE Administration Apixaban 5 mg 03/18/24 21:00 03/21/24 09:04 Apixaban 5 Mg Tablet PO 04/17/24 20:59 5 mg BID JOSE Administration Aspirin 81 mg 03/19/24 09:00 03/21/24 09:04 Aspirin 81 Mg Ectab PO 04/18/24 08:59 81 mg QAM JOSE Administration Atorvastatin Calcium 40 mg 03/17/24 21:00 03/20/24 21:17 Atorvastatin 40 Mg Tab PO 04/16/24 20:59 40 mg HS JOSE Administration Buspirone HCl 10 mg 03/15/24 21:00 03/20/24 21:18 Buspirone 5 Mg Tab PO 04/14/24 20:59 10 mg HS JOSE Administration Gabapentin 300 mg 03/15/24 21:00 03/21/24 09:04 Gabapentin 300 Mg Cap PO 04/14/24 20:59 300 mg BID JOSE Administration Hydromorphone HCl 0.25 mg 03/17/24 14:46 03/21/24 09:04 Hydromorphone Inj 0.5 Mg/0.5 Ml Syr IV 03/31/24 14:45 0.25 mg Q6H PRN Administration Severe Pain (Scale 7, 8, 9,10) Hydromorphone HCl 0.25 mg 03/18/24 11:51 03/21/24 03:09 Hydromorphone Inj 0.5 Mg/0.5 Ml Syr IV 04/01/24 11:50 0.25 mg Q3H PRN Administration Pain, dyspnea Palonosetron 0.25 mg/ Syringe 5 mls @ 10 mls/min 03/21/24 09:00 03/21/24 10:03 IV 04/20/24 08:59 10 mls/min DAILY JOSE Administration Lorazepam 0.5 mg 03/15/24 20:34 03/20/24 00:31 Lorazepam 0.5 Mg Tab PO 04/14/24 20:33 0.5 mg Q6 PRN Administration Anxiety Losartan Potassium 100 mg 03/15/24 21:00 03/20/24 21:19 Losartan Potassium 50 Mg Tab PO 04/14/24 20:59 100 mg HS JOSE Administration Metoprolol Tartrate 50 mg 03/15/24 21:00 03/21/24 09:04 Metoprolol Tartrate 50 Mg Tab PO 04/14/24 20:59 50 mg BID JOSE Administration Oxycodone HCl 5 mg 03/15/24 20:34 03/16/24 15:56 Oxycodone Hcl Ir 5 Mg Tab (Immediate Release) PO 03/29/24 20:33 5 mg Q4 PRN Administration Pain
[2024-03-21] MEDS: amLODIPine BESYLATE 5 MG TAB PO ONE (15:58)
[2024-03-21] MEDS: FILGRASTIM 300 MCG/ML VIAL SC SCH (17:08)
[2024-03-21] MEDS: OLANZapine ZYDIS 5 MG ORALLY DIS. TAB PO SCH (21:36)
[2024-03-22] MEDS: FERROUS SULFATE 325 MG/7.4 ML UDP PO SCH (08:00)
[2024-03-22] MEDS ORDERED: amLODIPine BESYLATE 5 MG TAB PO SCH ×2 (09:00)
[2024-03-22] MEDS ORDERED: FILGRASTIM 300 MCG/ML VIAL SC SCH (16:00)
--- NOTE | 2024-03-22 16:32 | Hospitalist Progress Note ---
Date of Service March 22, 2024 Assessment & Plan (1) Acute hypoxic respiratory failure: (2) Suspected malignant neoplasm of lung: (3) Myoclonic jerking: (4) Acute kidney injury: (5) Lymphadenopathy, mediastinal: (6) SVC obstruction: (7) Paroxysmal atrial fibrillation: (8) Hypokalemia: (9) Mild right ventricular systolic dysfunction: Plan Ms. Camacho is an 83-year-old female presents to the emergency room with acute hypoxic respiratory failure due to suspected lung malignancy and concern for metastatic disease. Bronchoscopy performed on 03/17. Rad Onc and Onc consulted to determine next steps for treatment. Post bronch complicated by worsening resp failure requiring bipap. Patient was weaned off of bipap and now on Oxymask, but with notable desaturation with movement. Radiation was attempted, however, patient unable to lay flat and now with extreme nausea complicating attempt with Rad/Onc, therefore postponed. Patient now undergoing on carboplatin day 1 (03/18/2024), etoposide day 1-3 which will be given IV q. 21-day cycle per heme/onc recommendations Now completed cycle 1 day /03/20. Pending eval for possible radiation tomorrow. #Acute hypoxic respiratory failure #Metastatic Small Cell Carcinoma #Large mediastinal mass #Postobstructive pna,r/o Biofire negative CT with large mass and associated LAD CT head, abd/pelvis ordered No evidence of post-obstructive pneumonia, discontinued abx per pulm Continue to eliquis and ASA Pulm on consult, s/p bronch 03/17 Oxy IR for and Tylenol for pain control CXR reviewed from 03/21 similar to 03/17 imaging Wean O2 as able -Advance per speech recommendations Question of type of cancer for next steps: Small cell carcinoma -Rad onc following appreciate recommendations -Will evaluate tomorrow to determine if patient able to tolerate radiation -Will defer radiation for now given tolerance/s/p IV chemo -Heme/Onc to follow, appreciate recommendations carboplatin day 1, etoposide day 1-3 which will be given IV q. 21-day cycle.(03/18/2024) -Completed 3 days -recommended CT head to r/o mets, ordered, however patient refused as she could not tolerate -Continue olanzipine 2.5 qhs for nausea/vomting related to chemo x 4 days -continue ompazine q6h and continue zofran Will need OP PET/CT upon DC Palliative consult -Managing symptoms #SVC syndrome #HTN #Nonobstructive CAD #Valvular heart disease Hold diuretics (utilized prn as op) HOB elevated Continue Amlodipine 2.5 mg daily (initially attempted to increase, but liable pressures) continue asa Continue losartan 100mg daily #Stroke like symptoms #Myoclonic jerks -Statin started, continue asa/eliquis when able #Normocytic anemia Anemia labs: folate/b12 normal; iron 37, ferritin 58.4 Add iron PO #Atrial fibrillation Stable rate today resume anticoagulation monitor on tele Continue Amiodarone 200 mg daily Continue Lopressor 50 mg b.i.d.. # Ascending Aortic Aneurysm Dissection s/p Repair CTM, BP control DVT scds, resume doac Conditional code: per admitting chest compressions are acceptable, no intubation Admission and Anticipated Discharge Date Admission Date: March 15, 2024 Subjective Patient states she is still short of breath, but when asked directly does report some improvements She states that she is less nauseated but without appetite Denies fevers chills chest pain Denies cough Physical Exam Constitutional: sitting on side of bed, no anxiety noted, appears comfortable, but mildly irritable Respiratory: diminished 2/2 effort, however, no rhonchi noted Cardiovascular: RRR, no murmur, no edema Results & Data Results & Data Vital Signs (Past 12 Hours) Vital Signs Temp Pulse Pulse Resp BP BP Pulse Ox 03/22/24 15:09 36.5 C 85 17 144/74 H 97 03/22/24 10:23 36.4 C L 69 17 130/73 94 03/22/24 08:00 74 03/22/24 08:00 03/22/24 07:03 36.7 C 92 H 20 118/62 95 O2 Del Method O2 Flow Rate 03/22/24 15:09 Room Air 03/22/24 10:23 Nasal Cannula 4 03/22/24 08:00 03/22/24 08:00 Nasal Cannula 3 03/22/24 07:03 Oxymask 6 Medications Administered Home Medications Medication Instructions Recorded Confirmed Last Taken multivitamin 1 tab PO QAM 06/03/19 03/15/24 03/15/24 amlodipine 2.5 mg tablet 2.5 mg PO QAM 09/23/22 03/15/24 03/15/24 buspirone 10 mg tablet 10 mg PO HS 09/23/22 03/15/24 03/14/24 calcium carbonate 600 mg-vitamin 1 tab PO HS 09/23/22 03/15/24 03/14/24 D3 20 mcg (800 unit) chewable tablet (Caltrate 600 plus D) apixaban 5 mg tablet 5 mg PO BID #180 tabs 11/02/22 03/15/24 03/15/24 08:00 aspirin 81 mg tablet,delayed 81 mg PO QAM 11/13/22 03/15/24 03/15/24 release (Adult Low Dose Aspirin) albuterol sulfate 90 mcg/actuation 2 puff inhalation QID PRN 01/01/23 03/15/24 Unknown aerosol inhaler shortness of breath or wheezing #8.5 grams metoprolol tartrate 50 mg tablet 50 mg PO BID #180 tabs 09/05/23 03/15/24 03/15/24 08:00 amiodarone 200 mg tablet 200 mg PO DAILY #90 tabs 02/08/24 03/15/24 03/15/24 bumetanide 2 mg tablet 3 mg PO DAILY 03/15/24 03/15/24 03/15/24 gabapentin 300 mg capsule 300 mg PO BID 03/15/24 03/15/24 03/15/24 08:00 losartan 100 mg tablet 100 mg PO 03/15/24 03/15/24 03/14/24 potassium chloride 10 mEq 10 meq PO BID 03/15/24 03/15/24 03/15/24 08:00 capsule,extended release Active Medications Generic Name Dose Route Start Last Admin Trade Name [facility] PRN Reason Stop Dose Admin Acetaminophen 650 mg 03/15/24 20:34 03/20/24 10:27 Acetaminophen 325 Mg Tab PO 04/14/24 20:33 650 mg Q4H PRN Administration Pain or Fever Albuterol 2 puffs 03/15/24 20:34 03/20/24 22:28 Albuterol Hfa 8 Gm Inhaler INH 04/14/24 20:33 2 puffs Q4 PRN Administration shortness of breath or wheezin Amiodarone HCl 200 mg 03/16/24 09:00 03/22/24 08:01 Amiodarone 200 Mg Tab PO 04/15/24 08:59 200 mg DAILY JOSE Administration Apixaban 5 mg 03/18/24 21:00 03/22/24 08:01 Apixaban 5 Mg Tablet PO 04/17/24 20:59 5 mg BID JOSE Administration Aspirin 81 mg 03/19/24 09:00 03/22/24 08:01 Aspirin 81 Mg Ectab PO 04/18/24 08:59 81 mg QAM JOSE Administration Atorvastatin Calcium 40 mg 03/17/24 21:00 03/21/24 21:35 Atorvastatin 40 Mg Tab PO 04/16/24 20:59 40 mg HS JOSE Administration Buspirone HCl 10 mg 03/15/24 21:00 03/21/24 21:34 Buspirone 5 Mg Tab PO 04/14/24 20:59 10 mg HS JOSE Administration Ferrous Sulfate 325 mg 03/22/24 09:00 03/22/24 08:00 Ferrous Sulfate 325 Mg/7.4 Ml Udp PO 04/21/24 08:59 325 mg QAM JOSE Administration Gabapentin 300 mg 03/15/24 21:00 03/22/24 08:00 Gabapentin 300 Mg Cap PO 04/14/24 20:59 300 mg BID JOSE Administration Hydromorphone HCl 0.25 mg 03/17/24 14:46 03/22/24 13:17 Hydromorphone Inj 0.5 Mg/0.5 Ml Syr IV 03/31/24 14:45 0.5 mg Q6H PRN Administration Severe Pain (Scale 7, 8, 9,10) Hydromorphone HCl 0.25 mg 03/18/24 11:51 03/21/24 21:31 Hydromorphone Inj 0.5 Mg/0.5 Ml Syr IV 04/01/24 11:50 0.25 mg Q3H PRN Administration Pain, dyspnea Palonosetron 0.25 mg/ Syringe 5 mls @ 10 mls/min 03/21/24 09:00 03/22/24 08:07 IV 04/20/24 08:59 10 mls/min DAILY JOSE Administration Lorazepam 0.5 mg 03/15/24 20:34 03/20/24 00:31 Lorazepam 0.5 Mg Tab PO 04/14/24 20:33 0.5 mg Q6 PRN Administration Anxiety Losartan Potassium 100 mg 03/15/24 21:00 03/21/24 21:36 Losartan Potassium 50 Mg Tab PO 04/14/24 20:59 100 mg HS JOSE Administration Metoprolol Tartrate 50 mg 03/15/24 21:00 03/22/24 08:01 Metoprolol Tartrate 50 Mg Tab PO 04/14/24 20:59 50 mg BID JOSE Administration Olanzapine 2.5 mg 03/21/24 21:00 03/21/24 21:36 Olanzapine Zydis 5 Mg Orally Dis. Tab PO 03/24/24 21:01 2.5 mg HS JOSE Administration Oxycodone HCl 5 mg 03/15/24 20:34 03/16/24 15:56 Oxycodone Hcl Ir 5 Mg Tab (Immediate Release) PO 03/29/24 20:33 5 mg Q4 PRN Administration Pain
[2024-03-23 07:44] LABS: Hematocrit (blood only) 33.3 % (37.0-47.0); Hemoglobin 10.6 g/dl (12.0-16.0); Mean Corpuscular Hemoglobin 31.2 pg (25.0-34.0); Mean Corpuscular Hgb Conc 31.8 g/dL (32.0-36.0); Mean Corpuscular Volume 97.9 fL (80.0-100.0); Mean Platelet Volume 9.9 fL (9.4-12.4); Platelet Count 177 K/uL (130-400); RDW Coefficient of Variation 13.4 % (11.5-14.5); RDW Standard Deviation 48.8 fL (36.4-46.3)
[2024-03-23] MEDS: amLODIPine BESYLATE 5 MG TAB PO SCH (08:09)
[2024-03-23 08:33] LABS: BUN Creatinine Ratio 44.9 (10-20); Calcium 8.4 mg/dl (8.6-10.3); Creatinine Clr Calc Pharmacy 81.4 ml/min; Est GFR (African American) 104.4 ml/min; Est GFR (Non-African American) 90.1 ml/min; Magnesium 1.8 mg/dl (1.7-2.4); Phosphorus 3.5 mg/dl (2.5-4.9); Potassium 3.4 mmol/L (3.5-5.1)
[2024-03-23] MEDS: POTASSIUM CHLORIDE CRTAB 20 MEQ TABCR PO STA (12:42)
--- NOTE | 2024-03-23 16:34 | Hematology/Oncology Prog Note ---
Date of Service March 23, 2024 Assessment & Plan (1) Small cell lung cancer: Plan S/P Cycle 1 of carbo/etoposide. Doing better clinically Outpatient f/u with me on discharge Admission and Anticipated Discharge Date Admission Date: March 15, 2024 Subjective Feels better. SOB and nausea, significantly improved Results & Data Vital Signs (Past 12 Hours) Vital Signs Temp Pulse Pulse Resp BP BP Pulse Ox 03/23/24 15:40 36.6 C 89 17 145/72 H 97 03/23/24 15:26 78 03/23/24 10:45 36.4 C L 65 17 114/67 96 03/23/24 08:01 82 03/23/24 08:00 03/23/24 07:00 36.6 C 84 19 124/72 98 O2 Del Method O2 Flow Rate 03/23/24 15:40 Oxymask 6 03/23/24 15:26 03/23/24 10:45 Oxymask 5 03/23/24 08:01 03/23/24 08:00 Oxymask 6 03/23/24 07:00 Oxymask 5
--- NOTE | 2024-03-23 18:37 | Hospitalist Progress Note ---
Date of Service March 23, 2024 Assessment & Plan (1) Acute hypoxic respiratory failure: (2) Suspected malignant neoplasm of lung: (3) Myoclonic jerking: (4) Acute kidney injury: (5) Lymphadenopathy, mediastinal: (6) SVC obstruction: (7) Paroxysmal atrial fibrillation: (8) Hypokalemia: (9) Mild right ventricular systolic dysfunction: Plan 83-year-old female presents to the emergency room with acute hypoxic respiratory failure due to suspected lung malignancy and concern for metastatic disease. Bronchoscopy performed on 03/17. Rad Onc and Onc consulted to determine next steps for treatment. Post bronch complicated by worsening resp failure requiring bipap. Patient was weaned off of bipap and now on Oxymask, but with notable desaturation with movement. Radiation was attempted, however, patient unable to lay flat and now with extreme nausea complicating attempt with Rad/Onc, therefore postponed. Patient now undergoing on carboplatin day 1 (03/18/2024), etoposide day 1-3 which will be given IV q. 21-day cycle per heme/onc recommendations Now completed cycle 1 day 12/26 03/20. Radiation onc eval ongoing. #Acute hypoxic respiratory failure #Metastatic Small Cell Carcinoma #Large mediastinal mass #Postobstructive pna,r/o Biofire negative CT with large mass and associated LAD CT head, abd/pelvis ordered No evidence of post-obstructive pneumonia, discontinued abx per pulm Continue to eliquis and ASA Pulm on consult, s/p bronch 03/17 Oxy IR for and Tylenol for pain control CXR reviewed from 03/21 similar to 03/17 imaging Wean O2 as able -Advance per speech recommendations Question of type of cancer for next steps: Small cell carcinoma -Rad onc following appreciate recommendations -Will evaluate tomorrow to determine if patient able to tolerate radiation -Will defer radiation for now given tolerance/s/p IV chemo -Heme/Onc to follow, appreciate recommendations carboplatin day 1, etoposide day 1-3 which will be given IV q. 21-day cycle.(03/18/2024) -Completed 3 days -recommended CT head to r/o mets, ordered, however patient refused as she could not tolerate -Continue olanzipine 2.5 qhs for nausea/vomting related to chemo x 4 days -continue compazine q6h and continue zofran Will need OP PET/CT upon DC Palliative consult -Managing symptoms Today pt appears ill/sick, has no new complaints, is refusing bpap, explained the needs, still continues to refuse. #SVC syndrome #HTN #Nonobstructive CAD #Valvular heart disease Hold diuretics (utilized prn as op) HOB elevated Continue Amlodipine 2.5 mg daily (initially attempted to increase, but liable pressures) continue asa Continue losartan 100mg daily #Stroke like symptoms #Myoclonic jerks -Statin started, continue asa/eliquis when able #Normocytic anemia Anemia labs: folate/b12 normal; iron 37, ferritin 58.4 Add iron PO #Atrial fibrillation Stable rate today resume anticoagulation monitor on tele Continue Amiodarone 200 mg daily Continue Lopressor 50 mg b.i.d.. # Ascending Aortic Aneurysm Dissection s/p Repair CTM, BP control DVT scds, resume doac Conditional code: per admitting chest compressions are acceptable, no intubation Admission and Anticipated Discharge Date Admission Date: March 15, 2024 Subjective Patient seen and examined at bedside. Patient was lying in bed, on 5 L oxygen via oxygen mask, NAD. Patient is refusing BiPAP per RN, has eaten half of her breakfast, is moving bowels okay. Discussed with patient at bedside the need for BiPAP, patient continues to re fuse it. Patient is aware if she does not use BiPAP, her respiratory failure with exacerbated and create complication. Patient denies fever, denies nausea and vomiting. Physical Exam Physical Exam: Constitutional: Alert, ill in appearance, nontoxic, 5L O2 via OM. HEENT: Mucous membranes moist. Sclera clear Neck: Soft, no adenopathy Lungs: Decreased breath sounds, prolonged expiratory phase, some rhonchi CV: S1-S2, regular Abdomen: Soft, nontender, nondistended Extremities: Trace pretibial edema Musculoskeletal: No significant joint tenderness Neuro: No focal deficits Psych: Cooperative, normal mood Results & Data Results & Data Vital Signs (Past 12 Hours) Vital Signs Temp Pulse Pulse Resp BP BP Pulse Ox 03/23/24 15:40 36.6 C 89 17 145/72 H 97 03/23/24 15:26 78 03/23/24 10:45 36.4 C L 65 17 114/67 96 03/23/24 08:01 82 03/23/24 08:00 03/23/24 07:00 36.6 C 84 19 124/72 98 O2 Del Method O2 Flow Rate 03/23/24 15:40 Oxymask 6 03/23/24 15:26 03/23/24 10:45 Oxymask 5 03/23/24 08:01 03/23/24 08:00 Oxymask 6 03/23/24 07:00 Oxymask 5
[2024-03-24 07:39] LABS: Hematocrit (blood only) 32.4 % (37.0-47.0); Hemoglobin 10.1 g/dl (12.0-16.0); Mean Corpuscular Hemoglobin 31.3 pg (25.0-34.0); Mean Corpuscular Hgb Conc 31.2 g/dL (32.0-36.0); Mean Corpuscular Volume 100.3 fL (80.0-100.0); Platelet Count 162 K/uL (130-400); RDW Coefficient of Variation 13.2 % (11.5-14.5); RDW Standard Deviation 49.1 fL (36.4-46.3); Red Blood Count 3.23 M/uL (4.20-5.40); White Blood Count 13.83 K/ul (4.8-10.8)
[2024-03-24 08:02] LABS: Calcium 8.4 mg/dl (8.6-10.3); Creatinine Clr Calc Pharmacy 86.7 ml/min; Est GFR (African American) 106.6 ml/min; Magnesium 1.8 mg/dl (1.7-2.4); Phosphorus 3.2 mg/dl (2.5-4.9); Potassium 3.6 mmol/L (3.5-5.1)
--- NOTE | 2024-03-24 15:36 | Hospitalist Progress Note ---
Date of Service March 24, 2024 Assessment & Plan (1) Acute hypoxic respiratory failure: (2) Suspected malignant neoplasm of lung: (3) Myoclonic jerking: (4) Acute kidney injury: (5) Lymphadenopathy, mediastinal: (6) SVC obstruction: (7) Paroxysmal atrial fibrillation: (8) Hypokalemia: (9) Mild right ventricular systolic dysfunction: Plan 83-year-old lady with PMH of HFpEF, A-fib, thoracic aortic aneurysm, HTN, osteoporosis, inflamed seborrheic keratosis, major depressive disorder, tobacco use disorder, aortic valve replacement with bioprosthetic valve who presented to the ED with acute hypoxemic respiratory failure due to suspected lung malignancy and concern for metastatic disease. She is being managed for the following: Acute hypoxic respiratory failure Metastatic Small Cell Carcinoma Large mediastinal mass Postobstructive pna, r/o In the ED, patient was noted to be hypoxic on room air with sats in the mid 80s. Admitting imagings: CXR with asymmetric right hilar mass like enlargement. Cardiomegaly with pulmonary vascular congestion. Left basilar opacity. CTA chest: No PE. Large right hilar/upper lobe mass measuring 10 x 8 cm highly suspicious for primary bronchogenic malignancy. Right anterior diaphragmatic lymphadenopathy representing metastatic disease. 2.1 cm left upper lobe nodule abutting the mediastinum likely representing metastatic disease. Small right pleural effusion suggestive of malignant pleural effusion. Right hilar/upper lobe mass also results in severe narrowing of the SVC without evidence of occlusion at this time. CTAP: No definite evidence of metastatic disease. 1.9 cm left adrenal nodule which was likely present on CT of September 25, 2022. Pathologic right cardiophrenic angle lymph node. Small right pleural effusion. CT head and CTA head/neck : No acute finding. BioFire negative, pulmonology evaluated, no evidence of postobstructive pneumonia/discontinued antibiotic with pulm recommendation. Status post bronc 03/17. Post bronch complicated by worsening resp failure requiring bipap. Patient was weaned off of bipap and now on Oxymask c/w Pain Mx. Wean O2 as able. Pt refusing BPAP. Speech evaled, appreciate recs. Rad onc evaled - Radiation was attempted, however, patient unable to lay flat and now with extreme nausea complicating attempt with Rad/Onc, therefore postponed. Heme/Onc evaled - S/P Cycle 1 of carbo/etoposide (03/18/2024) [carboplatin day 1, etoposide day 1-3] Post Chemo nausea control w/ olanzipine 2.5 qhs for nausea/vomting related to chemo x 4 days and as needed Compazine and Zofran. Improving. Follow-up with medical oncology upon discharge, outpatient PET/CT upon discharge. Palliative consult: Managing symptoms. Patient reports feeling better, appetite improving, nausea and vomiting under control. SVC syndrome HTN Nonobstructive CAD Valvular heart disease Hold diuretics (utilized prn as op) HOB elevated Continue Amlodipine 2.5 mg daily (initially attempted to increase, but labile pressures). c/w losartan, asa. Stroke like symptoms Myoclonic jerks Statin started, continue asa/eliquis when able Normocytic anemia : Anemia labs: folate/b12 normal; iron 37, ferritin 58.4. c/w iron PO Atrial fibrillation: Stable rate today. c/w eliquis, amiodarone and lopressor. Ascending Aortic Aneurysm Dissection s/p Repair: CTM, BP control DVT Px: pt on eliquis. Conditional code: per admitting chest compressions are acceptable, no intubation Admission and Anticipated Discharge Date Admission Date: March 15, 2024 Subjective Patient seen and examined at bedside. Patient was lying in bed, on 5 L oxygen via oxygen mask, NAD. Per RN - pt refusing BPAP, eating ok, moved bowel in AM. No issues overnight. Again discussed with patient at bedside the need for BiPAP, patient continues to refuse it. Patient is aware if she does not use BiPAP, her respiratory failure with exacerbated and create complication. Patient denies fever, denies nausea and vomiting. Physical Exam Physical Exam: Constitutional: Alert, ill in appearance, nontoxic, 5L O2 via OM. HEENT: Mucous membranes moist. Sclera clear Neck: Soft, no adenopathy Lungs: Decreased breath sounds, prolonged expiratory phase, some rhonchi CV: S1-S2, regular Abdomen: Soft, nontender, nondistended Extremities: Trace pretibial edema Musculoskeletal: No significant joint tenderness Neuro: No focal deficits Psych: Cooperative, normal mood Results & Data Results & Data Vital Signs (Past 12 Hours) Vital Signs Temp Pulse Pulse Resp BP BP Pulse Ox 03/24/24 15:13 73 03/24/24 14:27 36.6 C 79 19 148/64 H 99 03/24/24 11:01 36.7 C 66 17 139/54 L 99 03/24/24 08:00 03/24/24 07:01 36.6 C 75 17 124/70 97 03/24/24 07:00 82 03/24/24 04:48 57 L 18 97 O2 Del Method O2 Flow Rate 03/24/24 15:13 03/24/24 14:27 Oxymask 5 03/24/24 11:01 Oxymask 5 03/24/24 08:00 Oxymask 5 03/24/24 07:01 Oxymask, Non-rebreather 5 03/24/24 07:00 03/24/24 04:48 Oxymask 5
[2024-03-25 07:21] LABS: Hematocrit (blood only) 35.2 % (37.0-47.0); Hemoglobin 10.9 g/dl (12.0-16.0); Mean Corpuscular Hemoglobin 31.1 pg (25.0-34.0); Mean Corpuscular Volume 100.6 fL (80.0-100.0); Mean Platelet Volume 10.1 fL (9.4-12.4); Platelet Count 154 K/uL (130-400); RDW Standard Deviation 48.1 fL (36.4-46.3); White Blood Count 4.75 K/ul (4.8-10.8)
[2024-03-25 07:58] LABS: BUN Creatinine Ratio 37.3 (10-20); Calcium 8.7 mg/dl (8.6-10.3); Creatinine Clr Calc Pharmacy 78.2 ml/min; Est GFR (African American) 103.1 ml/min; Est GFR (Non-African American) 88.9 ml/min; Magnesium 1.8 mg/dl (1.7-2.4); Phosphorus 3.1 mg/dl (2.5-4.9)
[2024-03-25] MEDS: FERROUS SULFATE 325 MG TAB PO SCH (09:19)
--- NOTE | 2024-03-25 16:51 | Hospitalist Progress Note ---
Date of Service March 25, 2024 Assessment & Plan (1) Acute hypoxic respiratory failure: (2) Suspected malignant neoplasm of lung: (3) Myoclonic jerking: (4) Acute kidney injury: (5) Lymphadenopathy, mediastinal: (6) SVC obstruction: (7) Paroxysmal atrial fibrillation: (8) Hypokalemia: (9) Mild right ventricular systolic dysfunction: Plan 83-year-old lady with PMH of HFpEF, A-fib, thoracic aortic aneurysm, HTN, osteoporosis, inflamed seborrheic keratosis, major depressive disorder, tobacco use disorder, aortic valve replacement with bioprosthetic valve who presented to the ED with acute hypoxemic respiratory failure due to suspected lung malignancy and concern for metastatic disease. She is being managed for the following: Acute hypoxic respiratory failure Metastatic Small Cell Carcinoma Large mediastinal mass Postobstructive pna, r/o In the ED, patient was noted to be hypoxic on room air with sats in the mid 80s. Admitting imagings: CXR with asymmetric right hilar mass like enlargement. Cardiomegaly with pulmonary vascular congestion. Left basilar opacity. CTA chest: No PE. Large right hilar/upper lobe mass measuring 10 x 8 cm highly suspicious for primary bronchogenic malignancy. Right anterior diaphragmatic lymphadenopathy representing metastatic disease. 2.1 cm left upper lobe nodule abutting the mediastinum likely representing metastatic disease. Small right pleural effusion suggestive of malignant pleural effusion. Right hilar/upper lobe mass also results in severe narrowing of the SVC without evidence of occlusion at this time. CTAP: No definite evidence of metastatic disease. 1.9 cm left adrenal nodule which was likely present on CT of September 25, 2022. Pathologic right cardiophrenic angle lymph node. Small right pleural effusion. CT head and CTA head/neck : No acute finding. BioFire negative, pulmonology evaluated, no evidence of postobstructive pneumonia/discontinued antibiotic with pulm recommendation. Status post bronc 03/17. Post bronch complicated by worsening resp failure requiring bipap. Patient was weaned off of bipap and now on Oxymask c/w Pain Mx. Wean O2 as able. Pt refusing BPAP. Speech evaled, appreciate recs. Rad onc evaled - Radiation was attempted, however, patient unable to lay flat and now with extreme nausea complicating attempt with Rad/Onc, therefore postponed. Heme/Onc evaled - S/P Cycle 1 of carbo/etoposide (03/18/2024) [carboplatin day 1, etoposide day 1-3]. Pt is improving, f/u med onc as OP. Post Chemo nausea control w/ olanzipine 2.5 qhs for nausea/vomting related to chemo x 4 days (completed 03/24) and as needed Compazine and Zofran. Improving. Follow-up with medical oncology upon discharge, outpatient PET/CT upon discharge. Palliative consult: Managing symptoms. Patient reports feeling better, appetite improving, nausea and vomiting under control. SVC syndrome HTN Nonobstructive CAD Valvular heart disease Hold diuretics (utilized prn as op) HOB elevated Continue Amlodipine 2.5 mg daily (initially attempted to increase, but labile pressures). c/w losartan, asa. Stroke like symptoms Myoclonic jerks Statin started, continue asa/eliquis when able Normocytic anemia : Anemia labs: folate/b12 normal; iron 37, ferritin 58.4. c/w iron PO Atrial fibrillation: Stable rate today. c/w eliquis, amiodarone and lopressor. Ascending Aortic Aneurysm Dissection s/p Repair: CTM, BP control DVT Px: pt on eliquis. Conditional code: per admitting chest compressions are acceptable, no intubation pt/ot, cm to assist w/ dc plan Admission and Anticipated Discharge Date Admission Date: March 15, 2024 Subjective Patient seen and examined at bedside. Patient was sitting up in chair, on 3 L oxygen via oxygen mask, NAD. Per RN - pt refusing BPAP, eating ok, moved bowel in AM. No issues overnight. Again discussed with patient at bedside the need for BiPAP, patient continues to refuse it. Patient is aware if she does not use BiPAP, her respiratory failure with exacerbated and create complication. Patient denies fever, denies nausea and vomiting. Pt's son updated at bedside. Physical Exam Physical Exam: Constitutional: Alert, ill in appearance, nontoxic, 3L O2 via OM. HEENT: Mucous membranes moist. Sclera clear Neck: Soft, no adenopathy Lungs: Decreased breath sounds, prolonged expiratory phase, some rhonchi CV: S1-S2, regular Abdomen: Soft, nontender, nondistended Extremities: Trace pretibial edema Musculoskeletal: No significant joint tenderness Neuro: No focal deficits Psych: Cooperative, normal mood Results & Data Results & Data Vital Signs (Past 12 Hours) Vital Signs Temp Pulse Pulse Resp BP Pulse Ox O2 Del Method 03/25/24 15:43 36.8 C 88 18 130/73 93 Oxymask 03/25/24 11:36 36.9 C 86 16 122/72 91 Oxymask 03/25/24 08:00 78 03/25/24 08:00 Oxymask 03/25/24 08:00 36.5 C 78 16 113/63 92 Oxymask 03/25/24 05:51 77 18 92 Oxymask O2 Flow Rate 03/25/24 15:43 3 03/25/24 11:36 3 03/25/24 08:00 03/25/24 08:00 3 03/25/24 08:00 3 03/25/24 05:51 3
[2024-03-26 06:24] LABS: Hematocrit (blood only) 32.5 % (37.0-47.0); Hemoglobin 10.2 g/dl (12.0-16.0); Mean Corpuscular Hemoglobin 31.1 pg (25.0-34.0); Mean Corpuscular Hgb Conc 31.4 g/dL (32.0-36.0); Mean Corpuscular Volume 99.1 fL (80.0-100.0); Platelet Count 136 K/uL (130-400); RDW Coefficient of Variation 12.7 % (11.5-14.5); RDW Standard Deviation 46.2 fL (36.4-46.3); Red Blood Count 3.28 M/uL (4.20-5.40); White Blood Count 2.29 K/ul (4.8-10.8)
[2024-03-26 06:52] LABS: BUN Creatinine Ratio 41.9 (10-20); Calcium 8.6 mg/dl (8.6-10.3); Creatinine Clr Calc Pharmacy 92.8 ml/min; Est GFR (Non-African American) 94.1 ml/min; Potassium 3.9 mmol/L (3.5-5.1)
--- NOTE | 2024-03-26 17:05 | Hospitalist Progress Note ---
Date of Service March 26, 2024 Assessment & Plan (1) Acute hypoxic respiratory failure: (2) Suspected malignant neoplasm of lung: (3) Myoclonic jerking: (4) Acute kidney injury: (5) Lymphadenopathy, mediastinal: (6) SVC obstruction: (7) Paroxysmal atrial fibrillation: (8) Hypokalemia: (9) Mild right ventricular systolic dysfunction: Plan 83-year-old lady with PMH of HFpEF, A-fib, thoracic aortic aneurysm, HTN, osteoporosis, inflamed seborrheic keratosis, major depressive disorder, tobacco use disorder, aortic valve replacement with bioprosthetic valve who presented to the ED with acute hypoxemic respiratory failure due to suspected lung malignancy and concern for metastatic disease. She is being managed for the following: Acute hypoxic respiratory failure Metastatic Small Cell Carcinoma Large mediastinal mass Postobstructive pna, r/o In the ED, patient was noted to be hypoxic on room air with sats in the mid 80s. Admitting imagings: CXR with asymmetric right hilar mass like enlargement. Cardiomegaly with pulmonary vascular congestion. Left basilar opacity. CTA chest: No PE. Large right hilar/upper lobe mass measuring 10 x 8 cm highly suspicious for primary bronchogenic malignancy. Right anterior diaphragmatic lymphadenopathy representing metastatic disease. 2.1 cm left upper lobe nodule abutting the mediastinum likely representing metastatic disease. Small right pleural effusion suggestive of malignant pleural effusion. Right hilar/upper lobe mass also results in severe narrowing of the SVC without evidence of occlusion at this time. CTAP: No definite evidence of metastatic disease. 1.9 cm left adrenal nodule which was likely present on CT of September 25, 2022. Pathologic right cardiophrenic angle lymph node. Small right pleural effusion. CT head and CTA head/neck : No acute finding. BioFire negative, pulmonology evaluated, no evidence of postobstructive pneumonia/discontinued antibiotic with pulm recommendation. Status post bronc 03/17. Post bronch complicated by worsening resp failure requiring bipap. Patient was weaned off of bipap and now on Oxymask c/w Pain Mx. Wean O2 as able. Pt refusing BPAP. Speech evaled, appreciate recs. Rad onc evaled - Radiation was attempted, however, patient unable to lay flat and now with extreme nausea complicating attempt with Rad/Onc, therefore postponed. Heme/Onc evaled - S/P Cycle 1 of carbo/etoposide (03/18/2024) [carboplatin day 1, etoposide day 1-3]. Pt is improving, f/u med onc as OP. Post Chemo nausea control w/ olanzipine 2.5 qhs for nausea/vomting related to chemo x 4 days (completed 03/24) and as needed Compazine and Zofran. Improving. Follow-up with medical oncology upon discharge, outpatient PET/CT upon discharge. Palliative consult: Managing symptoms. Patient reports feeling better, appetite improving, nausea and vomiting under control. Monitor WBC SVC syndrome HTN Nonobstructive CAD Valvular heart disease Hold diuretics (utilized prn as op) HOB elevated Continue Amlodipine 2.5 mg daily (initially attempted to increase, but labile pressures). c/w losartan, asa. Stroke like symptoms Myoclonic jerks Statin started, continue asa/eliquis when able Normocytic anemia : Anemia labs: folate/b12 normal; iron 37, ferritin 58.4. c/w iron PO Atrial fibrillation: Stable rate today. c/w eliquis, amiodarone and lopressor. Ascending Aortic Aneurysm Dissection s/p Repair: CTM, BP control DVT Px: pt on eliquis. Conditional code: per admitting chest compressions are acceptable, no intubation pt/ot, cm to assist w/ dc plan Admission and Anticipated Discharge Date Admission Date: March 15, 2024 Subjective Patient seen and examined at bedside. Patient was lying in bed, on 5 L oxygen via oxygen mask, NAD. Per RN - pt refusing BPAP, eating ok, moved bowel in AM. No issues overnight. Again discussed with patient at bedside the need for BiPAP, patient continues to refuse it. Patient is aware if she does not use BiPAP, her respiratory failure with exacerbated and create complication. Patient denies fever, denies nausea and vomiting. Pt reports feeling better. Reports occasional cough w/ scant sputum/can't spit out. Physical Exam Physical Exam: Constitutional: Alert, ill in appearance, nontoxic, 5L O2 via OM. HEENT: Mucous membranes moist. Sclera clear Neck: Soft, no adenopathy Lungs: Decreased breath sounds, prolonged expiratory phase, some rhonchi CV: S1-S2, regular Abdomen: Soft, nontender, nondistended Extremities: Trace pretibial edema Musculoskeletal: No significant joint tenderness Neuro: No focal deficits Psych: Cooperative, normal mood Results & Data Results & Data Vital Signs (Past 12 Hours) Vital Signs Temp Pulse Pulse Resp BP Pulse Ox O2 Del Method 03/26/24 15:49 36.8 C 75 18 131/55 L 98 Oxymask 03/26/24 10:56 36.9 C 63 18 107/65 100 Oxymask 03/26/24 08:00 70 03/26/24 08:00 Oxymask 03/26/24 07:46 36.8 C 93 H 20 138/68 98 Oxymask O2 Flow Rate 03/26/24 15:49 5 03/26/24 10:56 5 03/26/24 08:00 03/26/24 08:00 5 03/26/24 07:46 5
[2024-03-26 21:24] LABS: Hematocrit (blood only) 32.5 % (37.0-47.0); Hemoglobin 10.2 g/dl (12.0-16.0); Mean Corpuscular Hemoglobin 30.9 pg (25.0-34.0); Mean Corpuscular Hgb Conc 31.4 g/dL (32.0-36.0); Mean Corpuscular Volume 98.5 fL (80.0-100.0); Mean Platelet Volume 9.8 fL (9.4-12.4); Platelet Count 139 K/uL (130-400); RDW Coefficient of Variation 12.5 % (11.5-14.5); RDW Standard Deviation 45.1 fL (36.4-46.3); White Blood Count 2.21 K/ul (4.8-10.8)
[2024-03-26] MEDS: ACETAMINOPHEN 325 MG TAB PO STA (21:41)
[2024-03-26] MEDS: SODIUM CHLORIDE 0.45 % 1,000 ML IV ONE (21:42)
[2024-03-26] MEDS: LORATADINE 10 MG TAB PO ONE (21:42)
[2024-03-26 22:08] LABS: Dohle Bodies 1+
[2024-03-26 22:11] LABS: Basophils # (auto) 0.07 K/uL (0.00-0.20); Basophils % (auto) 3.2 %; Eosinophils # (auto) 0.24 K/uL (0.00-0.50); Eosinophils % (auto) 10.9 %; Immature Granulocytes # (auto) 0.01 K/uL (0.01-0.20); Immature Granulocytes % (auto) 0.5 %; Lymphocytes # (auto) 0.95 K/uL (1.20-3.40); Monocytes % (auto) 4.5 %; Neutrophils # (auto) 0.84 K/uL (1.40-6.50); Neutrophils % (auto) 37.9 %
[2024-03-26 22:57] LABS: Appearance Urine Clear (Clear); Bacteria Urine Automated None Seen (None Seen); Bilirubin Urine Negative (Negative); Blood Urine Negative (Negative); Cast Urine Automated 0-2 /lpf (0-2); Color Urine Yellow; Epithelial Cell Urine Auto 0-2 /hpf (0-2); Glucose Urine UA Negative (Negative); Ketones Urine Negative (Negative); Leukocyte Esterase Urine Trace (Negative); Nitrite Urine Negative (Negative); Protein Urine Negative (Negative); RBC Urine Automated 0-2 /hpf (0-2); Specific Gravity Urine 1.008 (1.000-1.030); Urobilinogen Urine Negative (Negative); WBC Urine Automated 0-5 /hpf (0-5)
[2024-03-27] MEDS: KETOROLAC TROMETHAMINE 15 MG/ML VIAL IV ONE (01:38)
--- NOTE | 2024-03-27 01:59 | Communication Note ---
Date of Service: March 26, 2024 Late entry Patient complaining of vaginal pain. Vaginal area excoriated as per RN. Bloody spotting noted. AP Vaginitis with bleeding CBC now Hold aspirin and Eliquis for now Production Weigher consult (patient known to Chika MORALES)
[2024-03-27 06:58] LABS: Hematocrit (blood only) 31.8 % (37.0-47.0); Hemoglobin 9.9 g/dl (12.0-16.0); Mean Corpuscular Hgb Conc 31.1 g/dL (32.0-36.0); Mean Corpuscular Volume 99.7 fL (80.0-100.0); Mean Platelet Volume 10.4 fL (9.4-12.4); Platelet Count 126 K/uL (130-400); RDW Coefficient of Variation 12.5 % (11.5-14.5); Red Blood Count 3.19 M/uL (4.20-5.40); White Blood Count 1.84 K/ul (4.8-10.8)
[2024-03-27 07:01] LABS: BUN Creatinine Ratio 30.9 (10-20); Calcium 8.6 mg/dl (8.6-10.3); Creatinine Clr Calc Pharmacy 72.6 ml/min; Est GFR (African American) 100.5 ml/min; Est GFR (Non-African American) 86.7 ml/min; Potassium 4.1 mmol/L (3.5-5.1)
[2024-03-27 07:56] LABS: Basophils # (auto) 0.07 K/uL (0.00-0.20); Basophils % (auto) 3.8 %; Eosinophils # (auto) 0.25 K/uL (0.00-0.50); Eosinophils % (auto) 13.6 %; Immature Granulocytes # (auto) 0.01 K/uL (0.01-0.20); Immature Granulocytes % (auto) 0.5 %; Lymphocytes # (auto) 0.85 K/uL (1.20-3.40); Lymphocytes % (auto) 46.2 %; Monocytes # (auto) 0.14 K/uL (0.11-0.59); Monocytes % (auto) 7.6 %; Neutrophils # (auto) 0.52 K/uL (1.40-6.50); Neutrophils % (auto) 28.3 %
[2024-03-27] MEDS: POLYETHYLENE (MIRALAX) 17 GM PACK PO ONE (13:49)
--- NOTE | 2024-03-27 14:07 | OB/GYN Consultation ---
Date of Consultation March 27, 2024 Assessment & Plan (1) Rash of vulva: patient is an 83-year-old G3, P3 postmenopausal female who was admitted for respiratory distress and found to have vulvar/ perineal rash which is extending towards medial thigh as well as perianal skin, It appears to be skin irritation/exam/fungal? Etiology, I collected skin swab for culture and will order cream with Zinc oxide and Monistat. if no improvement recommend to be seen by airport tower controller. All questions were answered. (2) Vulvitis: History of Present Illness Reason for Consultation: Vulvitis/ vulvar rash Attending Physician: Anastasia Zepeda MD History of Present Illness patient is a 83-year-old G3, P3 postmenopausal female who was admitted to PCU for respiratory distress and noted to have vulvar rash, irritation. She states it is like a bedsore or diaper rash, is painful when she wipes in the bathroom and can ooze small blood on the toilet paper. She denies vaginal discharge, vaginal bleeding, vaginal itching or burning, odor nor pelvic pain. she has been menopausal for over 30 years and never used hormones. She denies any history of STUDENT WORKER problems, nor surgeries. she has not seen STUDENT WORKER for years. she was sexually active with her until he at about 14 months ago and she did not have any pain or bleeding after intercourse. She had 3 spontaneous vaginal deliveries in the past. 2 of her kids are alive and she lives with her oldest son. Her youngest son from suicide due to drugs. 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 Allergies Allergy/AdvReac Type Severity Reaction Status Date / Time azithromycin Allergy Severe throat Verified 03/15/24 16:38 swelling sulfamethoxazole Allergy Intermediate Hives Verified 03/15/24 16:38 trimethoprim Allergy Intermediate Hives Verified 03/15/24 16:38 penicillin V Allergy Mild arm Verified 03/15/24 16:38 swelling with PCN (tolerates oral PCN/Amoxicillin) Home Medications Medication Instructions Recorded Confirmed Type multivitamin 1 tab PO QAM 06/03/19 03/15/24 History amlodipine 2.5 mg tablet 2.5 mg PO QAM 09/23/22 03/15/24 History buspirone 10 mg tablet 10 mg PO HS 09/23/22 03/15/24 History calcium carbonate 600 mg-vitamin 1 tab PO HS 09/23/22 03/15/24 History D3 20 mcg (800 unit) chewable tablet (Caltrate 600 plus D) apixaban 5 mg tablet 5 mg PO BID #180 tabs 11/02/22 03/15/24 Rx aspirin 81 mg tablet,delayed 81 mg PO QAM 11/13/22 03/15/24 History release (Adult Low Dose Aspirin) albuterol sulfate 90 mcg/actuation 2 puff inhalation QID PRN 01/01/23 03/15/24 Rx aerosol inhaler shortness of breath or wheezing #8.5 grams metoprolol tartrate 50 mg tablet 50 mg PO BID #180 tabs 09/05/23 03/15/24 Rx amiodarone 200 mg tablet 200 mg PO DAILY #90 tabs 02/08/24 03/15/24 Rx bumetanide 2 mg tablet 3 mg PO DAILY 03/15/24 03/15/24 History gabapentin 300 mg capsule 300 mg PO BID 03/15/24 03/15/24 History losartan 100 mg tablet 100 mg PO HS 03/15/24 03/15/24 History potassium chloride 10 mEq 10 meq PO BID 03/15/24 03/15/24 History capsule,extended release Patient History Medical History Slurring of speech Abdominal aortic ectasia Severe mitral regurgitation Moderate left ventricular systolic dysfunction Alveolar emphysema of lung Hypertension Dyslipidemia Mild coronary artery disease normal coronary arteries with mild luminal irregularities per 2011 cardiac cath Moderate to severe mitral regurgitation Severe per 11/2022 ECHO Seasonal allergies Anxiety Chronic back pain Breast cancer right, XRT in 1986 Aortic aneurysm s/p repair (2010), [place] [facility] [place] Osteoporosis, unspecified Post-traumatic arthritis of ankle Surgical History 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 Status post open reduction with internal fixation (ORIF) of fracture of ankle Right ankle ORIF: 06/03/20: Grade view 1, MAC#3, ETT 7 at [facility] Status post thoracic aortic aneurysm repair with a stent + "blow out patch" (2010) [facility] History of cardioversion 10/2022 [facility] S/P ankle arthrodesis H/O decompression of ulnar nerve right History of carpal tunnel release right and left History of cataract surgery bilateral History of tonsillectomy History of appendectomy History of colonoscopy Hx of lumpectomy right breast with radiation History of bilateral tubal ligation H/O lumbar discectomy with hardware/cage S/P hardware removal Left wrist Status post open reduction and internal fixation (ORIF) of fracture Left wrist History of cardiac cath , no stents; f/u dr javed wi History of open reduction and internal fixation (ORIF) procedure left wrist Family History Mother Heart disease Other No family history of adverse response to anesthesia Social History Smoking Status: Never smoker Tobacco Type: Cigarettes Cigarettes Per Day: QUIT >12 YRS AGO; Second Hand Exposure: No; Do You Dip or Chew Tobacco: No; Hx Alcohol Use: No Hx Substance Use: No Preferred Language: Slovenian Communication Ability: Effective Clarification Operator Required: No Beliefs That Will Affect Care: None marital status: / Current Living Situation: Family Current Living Situation Comment: son, & grandson Feels Safe at Home: Yes Assistive Devices: Brace/Splint/Immobilizer and Cane Review of Systems Constitutional: as per Subjective / HPI Physical Exam Constitutional: WD/WN, vitals as above + thin She is sitting on chair and doing a puzzle Very nice talkative women Gastrointestinal (Abdomen): normal bowel sounds, soft, nontender, no hepatosplenomegaly Genitourinary: no vaginal lesions, no adnexal mass + external erythema and + external ecchymosis Perineal skin including bilateral vulva seems erythematous which extends towards her medial buttocks and thighs. It seems like a diaper rash/irritation, eczema. There are 2 small 5 x 5 mm red dots on each sides appears to be scraped skin which could be the reason for spotting. she has small atrophic vagina which is normal for her age I performed digital exam which felt normal no masses no blood in my finger. Her uterus and adnexa feel normal. speculum exam was held due to small narrow vagina which could cause discomfort. Results & Data Vital Signs (Past 12 Hours) Vital Signs Temp Pulse Resp BP Pulse Ox O2 Del Method O2 Flow Rate 03/27/24 12:02 36.8 C 73 18 124/82 97 Oxymask 5.0 03/27/24 08:00 36.6 C 88 20 137/62 96 Oxymask 5 03/27/24 08:00 Oxymask 5 03/27/24 02:58 36.5 C 67 19 109/65 100 Oxymask 5 (2) Vulvitis Chronicity: subacute Qualified Code(s): N76.3 - Subacute and chronic vulvitis
[2024-03-27] MEDS ORDERED: POLYETHYLENE (MIRALAX) 17 GM PACK PO PRN (14:40)
--- NOTE | 2024-03-27 14:44 | Hospitalist Progress Note ---
Date of Service March 27, 2024 Assessment & Plan (1) Acute hypoxic respiratory failure: (2) Suspected malignant neoplasm of lung: (3) Myoclonic jerking: (4) Acute kidney injury: (5) Lymphadenopathy, mediastinal: (6) SVC obstruction: (7) Paroxysmal atrial fibrillation: (8) Hypokalemia: (9) Mild right ventricular systolic dysfunction: Plan 83-year-old lady with PMH of HFpEF, A-fib, thoracic aortic aneurysm, HTN, osteoporosis, inflamed seborrheic keratosis, major depressive disorder, tobacco use disorder, aortic valve replacement with bioprosthetic valve who presented to the ED with acute hypoxemic respiratory failure due to suspected lung malignancy and concern for metastatic disease. She is being managed for the following: Acute hypoxic respiratory failure Metastatic Small Cell Carcinoma Large mediastinal mass Postobstructive pna, r/o In the ED, patient was noted to be hypoxic on room air with sats in the mid 80s. Admitting imagings: CXR with asymmetric right hilar mass like enlargement. Cardiomegaly with pulmonary vascular congestion. Left basilar opacity. CTA chest: No PE. Large right hilar/upper lobe mass measuring 10 x 8 cm highly suspicious for primary bronchogenic malignancy. Right anterior diaphragmatic lymphadenopathy representing metastatic disease. 2.1 cm left upper lobe nodule abutting the mediastinum likely representing metastatic disease. Small right pleural effusion suggestive of malignant pleural effusion. Right hilar/upper lobe mass also results in severe narrowing of the SVC without evidence of occlusion at this time. CTAP: No definite evidence of metastatic disease. 1.9 cm left adrenal nodule which was likely present on CT of September 25, 2022. Pathologic right cardiophrenic angle lymph node. Small right pleural effusion. CT head and CTA head/neck : No acute finding. BioFire negative, pulmonology evaluated, no evidence of postobstructive pneumonia/discontinued antibiotic with pulm recommendation. Status post bronc 03/17. Post bronch complicated by worsening resp failure requiring bipap. Patient was weaned off of bipap and now on Oxymask c/w Pain Mx. Wean O2 as able. Pt refusing BPAP. Speech evaled, appreciate recs. Rad onc evaled - Radiation was attempted, however, patient unable to lay flat and now with extreme nausea complicating attempt with Rad/Onc, therefore postponed. Heme/Onc evaled - S/P Cycle 1 of carbo/etoposide (03/18/2024) [carboplatin day 1, etoposide day 1-3]. Pt is improving, f/u med onc as OP. Post Chemo nausea control w/ olanzipine 2.5 qhs for nausea/vomting related to chemo x 4 days (completed 03/24) and as needed Compazine and Zofran. Improving. Follow-up with medical oncology upon discharge, outpatient PET/CT upon discharge. Palliative consult: Managing symptoms. Patient reports feeling better, appetite improving, nausea and vomiting under control. Monitor WBC ?Vulvitis vs fungal infection: Gynecology evaled. zinc oixide and monistat. SVC syndrome HTN Nonobstructive CAD Valvular heart disease Hold diuretics (utilized prn as op) HOB elevated Continue Amlodipine 2.5 mg daily (initially attempted to increase, but labile pressures). c/w losartan, asa. Stroke like symptoms Myoclonic jerks Statin started, continue asa/eliquis when able Normocytic anemia : Anemia labs: folate/b12 normal; iron 37, ferritin 58.4. c/w iron PO Atrial fibrillation: Stable rate today. c/w eliquis, amiodarone and lopressor. Ascending Aortic Aneurysm Dissection s/p Repair: CTM, BP control DVT Px: pt on eliquis. Conditional code: per admitting chest compressions are acceptable, no intubation pt/ot, cm to assist w/ dc plan, pending stability of trending down wbc. Admission and Anticipated Discharge Date Admission Date: March 15, 2024 Subjective Patient seen and examined at bedside. Patient was lying in bed, on 5 L oxygen via oxygen mask, NAD. Per RN - pt refusing BPAP, eating ok, moved bowel 2d, ordered prn bowel regimen. No issues overnight. Again discussed with patient at bedside the need for BiPAP, patient continues to refuse it. Patient is aware if she does not use BiPAP, her respiratory failure with exacerbated and create complication. Patient denies fever, denies nausea and vomiting. Pt reports feeling better. Reports occasional cough w/ scant sputum/can't spit out. Physical Exam Physical Exam: Constitutional: Alert, ill in appearance, nontoxic, 5L O2 via OM. HEENT: Mucous membranes moist. Sclera clear Neck: Soft, no adenopathy Lungs: Decreased breath sounds, prolonged expiratory phase, some rhonchi CV: S1-S2, regular Abdomen: Soft, nontender, nondistended Extremities: Trace pretibial edema Musculoskeletal: No significant joint tenderness Neuro: No focal deficits Psych: Cooperative, normal mood Results & Data Results & Data Vital Signs (Past 12 Hours) Vital Signs Temp Pulse Resp BP Pulse Ox O2 Del Method O2 Flow Rate 03/27/24 12:02 36.8 C 73 18 124/82 97 Oxymask 5.0 03/27/24 08:00 36.6 C 88 20 137/62 96 Oxymask 5 03/27/24 08:00 Oxymask 5 03/27/24 02:58 36.5 C 67 19 109/65 100 Oxymask 5
--- NOTE | 2024-03-27 20:05 | Communication Note ---
Date of Service: March 27, 2024 Patient with episodic left upper extremity jerking this afternoon as per son. Not as bad as from admission as per patient. Transient headache symptoms as per patient. AP Headache Episodic myoclonic jerks Eliquis Rx CT head Hold Eliquis until CT head resulted
[2024-03-27] MEDS: BUTT PASTE (ZINC OXIDE 16%) 171 APPLN/57 GM JAR EXT SCH (21:13)
[2024-03-27] MEDS: MICONAZOLE NITRATE 2% CR 30 GM TUBE EXT SCH (21:14)
--- NOTE | 2024-03-28 03:02 | CT Scan Report ---
Exam(s): CT HEAD Without Contrast EXAM: CT Head Without Intravenous Contrast CLINICAL HISTORY: Reason for exam: schmid, jerks, eliquis. TECHNIQUE: Axial computed tomography images of the head/brain without intravenous contrast. CTDI is 38.76 mGy and DLP is 547.75 mGy-cm. Automated exposure control was utilized for the study. A dose lowering technique was utilized adhering to the principles of ALARA. COMPARISON: Comparison made to prior head CT from March 16, 2024. FINDINGS: Study is limited secondary to motion artifact. Brain: Unremarkable. No hemorrhage. Mild nonspecific white matter changes. No edema. Ventricles: Mild ventricular megaly. Bones/joints: Unremarkable. No acute fracture. Soft tissues: Unremarkable. Sinuses: Chronic right ethmoid sinusitis with single opacified air cell. No acute sinusitis. Mastoid air cells: There is a large amount of fluid in the left mastoid air cells. No mastoid effusion. IMPRESSION: No evidence of acute intracranial pathology. Electronically signed by: Kamala Perea MD 03/28/24 03:01 AM
[2024-03-28 06:55] LABS: Hematocrit (blood only) 30.3 % (37.0-47.0); Hemoglobin 9.4 g/dl (12.0-16.0); Mean Corpuscular Hemoglobin 30.8 pg (25.0-34.0); Mean Corpuscular Volume 99.3 fL (80.0-100.0); Mean Platelet Volume 10.1 fL (9.4-12.4); Platelet Count 107 K/uL (130-400); RDW Coefficient of Variation 12.4 % (11.5-14.5); RDW Standard Deviation 45.1 fL (36.4-46.3); Red Blood Count 3.05 M/uL (4.20-5.40); White Blood Count 1.72 K/ul (4.8-10.8)
[2024-03-28 07:07] LABS: BUN Creatinine Ratio 28.8 (10-20); Calcium 8.3 mg/dl (8.6-10.3); Creatinine Clr Calc Pharmacy 76.7 ml/min; Est GFR (African American) 102.4 ml/min; Est GFR (Non-African American) 88.4 ml/min; Potassium 3.6 mmol/L (3.5-5.1)
[2024-03-28 07:12] LABS: Basophils # (auto) 0.06 K/uL (0.00-0.20); Basophils % (auto) 3.5 %; Eosinophils # (auto) 0.15 K/uL (0.00-0.50); Eosinophils % (auto) 8.7 %; Immature Granulocytes # (auto) 0.01 K/uL (0.01-0.20); Immature Granulocytes % (auto) 0.6 %; Lymphocytes # (auto) 1.07 K/uL (1.20-3.40); Lymphocytes % (auto) 62.2 %; Monocytes # (auto) 0.18 K/uL (0.11-0.59); Monocytes % (auto) 10.5 %; Neutrophils # (auto) 0.25 K/uL (1.40-6.50); Neutrophils % (auto) 14.5 %
[2024-03-28] MEDS: POTASSIUM CHLORIDE CRTAB 20 MEQ TABCR PO STA (09:07)
[2024-03-28] MEDS ORDERED: PALONOSETRON 0.25 MG in SYRINGE 0 ML IV PRN (16:12)
--- NOTE | 2024-03-28 16:15 | Hospitalist Progress Note ---
Date of Service March 28, 2024 Assessment & Plan (1) Acute hypoxic respiratory failure: (2) Suspected malignant neoplasm of lung: (3) Myoclonic jerking: (4) Acute kidney injury: (5) Lymphadenopathy, mediastinal: (6) SVC obstruction: (7) Paroxysmal atrial fibrillation: (8) Hypokalemia: (9) Mild right ventricular systolic dysfunction: Plan 83-year-old lady with PMH of HFpEF, A-fib, thoracic aortic aneurysm, HTN, osteoporosis, inflamed seborrheic keratosis, major depressive disorder, tobacco use disorder, aortic valve replacement with bioprosthetic valve who presented to the ED with acute hypoxemic respiratory failure due to suspected lung malignancy and concern for metastatic disease. She is being managed for the following: Acute hypoxic respiratory failure Metastatic Small Cell Carcinoma Large mediastinal mass Postobstructive pna, r/o In the ED, patient was noted to be hypoxic on room air with sats in the mid 80s. Admitting imagings: CXR with asymmetric right hilar mass like enlargement. Cardiomegaly with pulmonary vascular congestion. Left basilar opacity. CTA chest: No PE. Large right hilar/upper lobe mass measuring 10 x 8 cm highly suspicious for primary bronchogenic malignancy. Right anterior diaphragmatic lymphadenopathy representing metastatic disease. 2.1 cm left upper lobe nodule abutting the mediastinum likely representing metastatic disease. Small right pleural effusion suggestive of malignant pleural effusion. Right hilar/upper lobe mass also results in severe narrowing of the SVC without evidence of occlusion at this time. CTAP: No definite evidence of metastatic disease. 1.9 cm left adrenal nodule which was likely present on CT of September 25, 2022. Pathologic right cardiophrenic angle lymph node. Small right pleural effusion. CT head and CTA head/neck : No acute finding. BioFire negative, pulmonology evaluated, no evidence of postobstructive pneumonia/discontinued antibiotic with pulm recommendation. Status post bronc 03/17. Post bronch complicated by worsening resp failure requiring bipap. Patient was weaned off of bipap and now on Oxymask c/w Pain Mx. Wean O2 as able. Pt refusing BPAP. Speech evaled, appreciate recs. Rad onc evaled - Radiation was attempted, however, patient unable to lay flat and now with extreme nausea complicating attempt with Rad/Onc, therefore postponed. Heme/Onc evaled - S/P Cycle 1 of carbo/etoposide (03/18/2024) [carboplatin day 1, etoposide day 1-3]. Pt is improving, f/u med onc as OP. Post Chemo nausea control w/ olanzipine 2.5 qhs for nausea/vomting related to chemo x 4 days (completed 03/24) and as needed Compazine and Zofran. Improving. Follow-up with medical oncology upon discharge, outpatient PET/CT upon discharge. Palliative consult: Managing symptoms. Patient reports feeling better, appetite improving, nausea and vomiting under control. Monitor WBC ?Vulvitis vs fungal infection: Gynecology evaled. zinc oixide and monistat. SVC syndrome HTN Nonobstructive CAD Valvular heart disease Hold diuretics (utilized prn as op) HOB elevated Continue Amlodipine 2.5 mg daily (initially attempted to increase, but labile pressures). c/w losartan, asa. Stroke like symptoms Myoclonic jerks Statin started, continue asa/eliquis when able Normocytic anemia : Anemia labs: folate/b12 normal; iron 37, ferritin 58.4. c/w iron PO Atrial fibrillation: Stable rate today. c/w eliquis, amiodarone and lopressor. Ascending Aortic Aneurysm Dissection s/p Repair: CTM, BP control DVT Px: pt on eliquis. Conditional code: per admitting chest compressions are acceptable, no intubation pt/ot, cm to assist w/ dc plan. Pt's son updated at bedside later in the day 03/28. Admission and Anticipated Discharge Date Admission Date: March 15, 2024 Subjective Patient seen and examined at bedside. Patient was lying in bed, on 2 L oxygen via oxygen mask, NAD. Pt reports no n, v, eating ok, moving bowels ok. Pt continues to refuse to wear BPAP. Patient denies fever, denies nausea and vomiting. Pt reports feeling better. Reports occasional cough w/ scant sputum/can't spit out. Physical Exam Physical Exam: Constitutional: Alert, ill in appearance, nontoxic, 2L O2 via OM. HEENT: Mucous membranes moist. Sclera clear Neck: Soft, no adenopathy Lungs: Decreased breath sounds, prolonged expiratory phase, some rhonchi CV: S1-S2, regular Abdomen: Soft, nontender, nondistended Extremities: Trace pretibial edema Musculoskeletal: No significant joint tenderness Neuro: No focal deficits Psych: Cooperative, normal mood Results & Data Results & Data Vital Signs (Past 12 Hours) Vital Signs Temp Pulse Pulse Pulse Resp BP Pulse Ox 03/28/24 15:00 36.9 C 77 18 145/70 H 99 03/28/24 12:00 36.7 C 77 18 114/77 97 03/28/24 07:41 03/28/24 07:35 36.6 C 78 16 120/61 96 03/28/24 07:10 73 O2 Del Method O2 Flow Rate 03/28/24 15:00 Oxymask 2.0 03/28/24 12:00 Oxymask 2 03/28/24 07:41 Nasal Cannula 2 03/28/24 07:35 Oxymask 2 03/28/24 07:10
--- NOTE | 2024-03-28 22:03 | Communication Note ---
Date of Service: March 28, 2024 Patient requesting for 2 tablets of Benadryl which she takes at night for nasal congestion as per RN. Loratadine in place of Benadryl given elderly patient's propensity for delirium.
[2024-03-28] MEDS: LORATADINE 10 MG TAB PO SCH (22:58)
[2024-03-28] MEDS: SODIUM CHLORIDE 0.65% NA SOLN 45 ML (OCEAN) PRN (22:58)
[2024-03-29] MEDS: hydrOXYzine HCl 10 MG TAB PO PRN (05:28)
[2024-03-29 06:14] LABS: Hematocrit (blood only) 30.7 % (37.0-47.0); Hemoglobin 9.6 g/dl (12.0-16.0); Mean Corpuscular Hgb Conc 31.3 g/dL (32.0-36.0); Mean Platelet Volume 10.5 fL (9.4-12.4); Platelet Count 105 K/uL (130-400); RDW Coefficient of Variation 12.5 % (11.5-14.5); RDW Standard Deviation 45.1 fL (36.4-46.3); White Blood Count 1.63 K/ul (4.8-10.8)
[2024-03-29 06:15] LABS: Basophils # (auto) 0.06 K/uL (0.00-0.20); Basophils % (auto) 3.7 %; Eosinophils # (auto) 0.11 K/uL (0.00-0.50); Eosinophils % (auto) 6.7 %; Lymphocytes # (auto) 1.09 K/uL (1.20-3.40); Lymphocytes % (auto) 66.9 %; Monocytes # (auto) 0.24 K/uL (0.11-0.59); Monocytes % (auto) 14.7 %; Neutrophils # (auto) 0.13 K/uL (1.40-6.50)
[2024-03-29 06:32] LABS: BUN Creatinine Ratio 21.2 (10-20); Calcium 8.7 mg/dl (8.6-10.3); Creatinine Clr Calc Pharmacy 60.5 ml/min; Est GFR (African American) 94.7 ml/min; Est GFR (Non-African American) 81.7 ml/min; Magnesium 1.8 mg/dl (1.7-2.4); Potassium 3.7 mmol/L (3.5-5.1)
[2024-03-29] MEDS: ALBUMIN 25% 12.5 GM/50 ML VIAL IV ONE (06:49)
[2024-03-29] MEDS: POTASSIUM CHLORIDE PWD 20 MEQ PACK PO STA (08:22)
[2024-03-29] MEDS: MAGNESIUM SULFATE / D5W 1 GM/100 ML BAG IV ONE (08:46)
[2024-03-29] MEDS: POTASSIUM CHLORIDE CRTAB 20 MEQ TABCR PO STA (13:04)
--- NOTE | 2024-03-29 13:42 | Hospitalist Progress Note ---
Date of Service March 29, 2024 Assessment & Plan (1) Acute hypoxic respiratory failure: (2) Suspected malignant neoplasm of lung: (3) Myoclonic jerking: (4) Acute kidney injury: (5) Lymphadenopathy, mediastinal: (6) SVC obstruction: (7) Paroxysmal atrial fibrillation: (8) Hypokalemia: (9) Mild right ventricular systolic dysfunction: Plan 83-year-old lady with PMH of HFpEF, A-fib, thoracic aortic aneurysm, HTN, osteoporosis, inflamed seborrheic keratosis, major depressive disorder, tobacco use disorder, aortic valve replacement with bioprosthetic valve who presented to the ED with acute hypoxemic respiratory failure due to suspected lung malignancy and concern for metastatic disease. She is being managed for the following: Acute hypoxic respiratory failure Metastatic Small Cell Carcinoma Large mediastinal mass Postobstructive pna, r/o In the ED, patient was noted to be hypoxic on room air with sats in the mid 80s. Admitting imagings: CXR with asymmetric right hilar mass like enlargement. Cardiomegaly with pulmonary vascular congestion. Left basilar opacity. CTA chest: No PE. Large right hilar/upper lobe mass measuring 10 x 8 cm highly suspicious for primary bronchogenic malignancy. Right anterior diaphragmatic lymphadenopathy representing metastatic disease. 2.1 cm left upper lobe nodule abutting the mediastinum likely representing metastatic disease. Small right pleural effusion suggestive of malignant pleural effusion. Right hilar/upper lobe mass also results in severe narrowing of the SVC without evidence of occlusion at this time. CTAP: No definite evidence of metastatic disease. 1.9 cm left adrenal nodule which was likely present on CT of September 25, 2022. Pathologic right cardiophrenic angle lymph node. Small right pleural effusion. CT head and CTA head/neck : No acute finding. BioFire negative, pulmonology evaluated, no evidence of postobstructive pneumonia/discontinued antibiotic with pulm recommendation. Status post bronc 03/17. Post bronch complicated by worsening resp failure requiring bipap. Patient was weaned off of bipap and now on Oxymask c/w Pain Mx. Wean O2 as able. Pt refusing BiPAP. Speech evaled, appreciate recs. Rad onc evaled - Radiation was attempted, however, patient unable to lay flat and now with extreme nausea complicating attempt with Rad/Onc, therefore postponed. Heme/Onc evaled - S/P Cycle 1 of carbo/etoposide (03/18/2024) [carboplatin day 1, etoposide day 1-3]. Pt is improving, f/u med onc as OP. Post Chemo nausea control w/ olanzipine 2.5 qhs for nausea/vomting related to chemo x 4 days (completed 03/24) and as needed Compazine and Zofran. Improving. Follow-up with medical oncology upon discharge, outpatient PET/CT upon discharge. Palliative consult: Managing symptoms. Patient reports feeling better, appetite improving, nausea and vomiting under control. Monitor WBC ?Vulvitis vs fungal infection: Gynecology evaled. zinc oxide and monistat. SVC syndrome HTN Nonobstructive CAD Valvular heart disease Hold diuretics (utilized prn as op) HOB elevated Continue Amlodipine 2.5 mg daily (initially attempted to increase, but labile pressures). c/w losartan, asa. Stroke like symptoms Myoclonic jerks Statin started, continue asa/eliquis when able Pancytopenia suspect 2/2 chemo per ONC note received GCSF on 03/21 continue to monitor Normocytic anemia : Anemia labs: folate/b12 normal; iron 37, ferritin 58.4. c/w iron PO Atrial fibrillation: Stable rate today. c/w eliquis, amiodarone and lopressor. Potassium acceptable, mag 1.6 and received 1g this a.m. Ascending Aortic Aneurysm Dissection s/p Repair: CTM, BP control DVT Px: pt on eliquis. Conditional code: per admitting chest compressions are acceptable, no intubation pt/ot, cm to assist w/ dc plan. A total of 45 min was spent coordinating, documenting, and providing care for this patient excluding time spent in the performance of separately billed services. This included personally viewing all current laboratories and imaging studies, medication reconciliation, outpatient chart review, and discussion with specialists. Admission and Anticipated Discharge Date Admission Date: March 15, 2024 Subjective Pt was seen and examined in room 356-2. Follow up Acute hypoxic resp failure. She offers no complaints today. She denies f/c/s, chest pain, sob, n/v/d. She has chronic SOB but feels this is at baseline. She continues to have a cough but unable to produce much. Review of Systems Review of Systems: All systems reviewed & are unremarkable except as noted in HPI & below Physical Exam Physical Exam: Gen: WD/WN, elderly, F, NAD, A&O x3 HEENT: Normocephalic, atraumatic, conjunctivae moist, sclerae anicteric, mucous membranes moist. Lung: on oxygen via face mask, Clear to Auscultation bilaterally, no wheezes/rales +rhonchi Heart: Regular rate, regular rhythm, no murmurs, rubs, or gallops Abdomen: Soft, NT, ND +BS x 4 Extremities: No edema Skin: Warm, no rash, negative turgor. Results & Data Results & Data Vital Signs (Past 12 Hours) Vital Signs Temp Pulse Resp BP Pulse Ox O2 Del Method O2 Flow Rate 03/29/24 08:15 Nasal Cannula 2 03/29/24 08:04 36.9 C 76 16 111/62 99 Oxymask 3 03/29/24 05:51 71 18 93 Oxymask 2 03/29/24 04:57 36.6 C 77 14 135/62 94 Oxymask 2 Laboratory Results Short CBC 03/29/24 Range/Units 05:20 WBC 1.63 L (4.8-10.8) K/ul Hgb 9.6 L (12.0-16.0) g/dl Hct 30.7 L (37.0-47.0) % Plt Count 105 L (130-400) K/uL BMP 03/29/24 05:20 Sodium 142 Potassium 3.7 Chloride 99 Carbon Dioxide 43 H* BUN 14 Creatinine 0.66 Glucose 105 H Calcium 8.7 Medications Administered Current Inpatient Medications Acetaminophen (Acetaminophen 325 Mg Tab) 650 mg PO Q4H PRN PRN Reason: Pain or Fever Stop: 04/14/24 20:33 Last Admin: 03/27/24 12:23 Dose: 650 mg Al Hydrox/Mg Hydrox/Simethicone (Aluminum/Magnesium Susp 30 Ml Udc) 15 ml PO Q4H PRN PRN Reason: Dyspepsia Stop: 04/14/24 20:33 Albuterol (Albuterol Hfa 8 Gm Inhaler) 2 puffs INH Q4 PRN PRN Reason: shortness of breath or wheezin Stop: 04/14/24 20:33 Last Admin: 03/29/24 05:05 Dose: 2 puffs Amiodarone HCl (Amiodarone 200 Mg Tab) 200 mg PO DAILY [facility] Stop: 04/15/24 08:59 Last Admin: 03/29/24 08:25 Dose: 200 mg Amlodipine Besylate (Amlodipine Besylate 5 Mg Tab) 2.5 mg PO QAM [facility] Stop: 04/21/24 08:59 Last Admin: 03/29/24 08:25 Dose: 2.5 mg Apixaban (Apixaban 5 Mg Tablet) 5 mg PO BID [facility] Stop: 04/17/24 20:59 Last Admin: 03/29/24 08:26 Dose: 5 mg Artificial Tears (Artificial Tears) 1 drops OPB QID PRN PRN Reason: Dryness Stop: 04/16/24 14:19 Aspirin (Aspirin 81 Mg Ectab) 81 mg PO QAM [facility] Stop: 04/18/24 08:59 Last Admin: 03/29/24 08:26 Dose: 81 mg Atorvastatin Calcium (Atorvastatin 40 Mg Tab) [address] [facility] Stop: 04/16/24 20:59 Last Admin: 03/28/24 21:38 Dose: 40 mg Buspirone HCl (Buspirone 5 Mg Tab) 10 mg PO HS [facility] Stop: 04/14/24 20:59 Last Admin: 03/28/24 21:38 Dose: 10 mg Ferrous Sulfate (Ferrous Sulfate 325 Mg Tab) 325 mg PO QAM [facility] Stop: 04/24/24 08:59 Last Admin: 03/29/24 08:39 Dose: 325 mg Gabapentin (Gabapentin 300 Mg Cap) 300 mg PO BID [facility] Stop: 04/14/24 20:59 Last Admin: 03/29/24 08:27 Dose: 300 mg Hydralazine HCl (Hydralazine Hcl 20 Mg/Ml Vial) 5 mg IV Q4H PRN PRN Reason: Systolic BP >175 Stop: 04/20/24 14:41 Hydromorphone HCl (Hydromorphone Inj 0.5 Mg/0.5 Ml Syr) 0.25 mg IV Q6H PRN PRN Reason: Severe Pain (Scale 7, 8, 9,10) Stop: 03/31/24 14:45 Last Admin: 03/22/24 19:43 Dose: 0.25 mg Hydromorphone HCl (Hydromorphone Inj 0.5 Mg/0.5 Ml Syr) 0.25 mg IV Q3H PRN PRN Reason: Pain, dyspnea Stop: 04/01/24 11:50 Last Admin: 03/25/24 21:58 Dose: 0.25 mg Hydroxyzine HCl (Hydroxyzine Hcl 10 Mg Tab) 10 mg PO QID PRN PRN Reason: Anxiety Stop: 04/28/24 05:03 Last Admin: 03/29/24 05:28 Dose: 10 mg Ondansetron HCl 6 mg/ Dextrose 53 mls @ 200 mls/hr IV Q6H PRN PRN Reason: Nausea And Vomiting Stop: 04/20/24 08:17 Prochlorperazine 5 mg/ Syringe 5 mls @ 5 mls/min IV Q6H PRN PRN Reason: Nausea And Vomiting Stop: 04/20/24 14:39 Palonosetron 0.25 mg/ Syringe 5 mls @ 10 mls/min IV DAILY PRN PRN Reason: nausea, vomiting Stop: 04/20/24 08:59 Loratadine (Loratadine 10 Mg Tab) 10 mg PO HS [facility] Stop: 04/27/24 22:04 Last Admin: 03/28/24 22:58 Dose: 10 mg Lorazepam (Lorazepam 0.5 Mg Tab) 0.5 mg PO Q6 PRN PRN Reason: Anxiety Stop: 04/14/24 20:33 Last Admin: 03/20/24 00:31 Dose: 0.5 mg Losartan Potassium (Losartan Potassium 50 Mg Tab) 100 mg PO HS [facility] Stop: 04/14/24 20:59 Last Admin: 03/28/24 21:38 Dose: 100 mg Magnesium Hydroxide (Magnesium Hydroxide Susp 30 Ml Udc) 30 ml PO Q12H PRN PRN Reason: Constipation Stop: 04/14/24 20:33 Metoprolol Tartrate (Metoprolol Tartrate 50 Mg Tab) 50 mg PO BID [facility] Stop: 04/14/24 20:59 Last Admin: 03/29/24 08:27 Dose: 50 mg Miconazole Nitrate (Miconazole Nitrate 2% Cr 30 Gm Tube) 1 appln EXT BID [facility] Stop: 04/26/24 20:59 Last Admin: 03/29/24 09:56 Dose: 1 appln Oxycodone HCl (Oxycodone Hcl Ir 5 Mg Tab (Immediate Release)) 5 mg PO Q4 PRN PRN Reason: Pain Stop: 03/29/24 20:33 Last Admin: 03/27/24 21:14 Dose: 5 mg Petrolatum (Butt Paste (Zinc Oxide 16%) 171 Appln/57 Gm Jar) 1 appln EXT BID [facility] Stop: 04/26/24 20:59 Last Admin: 03/29/24 09:56 Dose: 1 appln Polyethylene Glycol (Polyethylene (Miralax) 17 Gm Pack) 17 gm PO DAILY PRN PRN Reason: Constipation Stop: 04/26/24 14:39 Sodium Chloride (Sodium Chloride 0.65% Na Soln 45 Ml ([place])) 2 sprays NA TID PRN PRN Reason: Nasal Congestion Stop: 04/27/24 22:01 Last Admin: 03/28/24 22:58 Dose: 2 sprays
[2024-03-29] MEDS: LORATADINE 10 MG TAB PO SCH (15:23)
[2024-03-29] MEDS: DOCUSATE SODIUM 100 MG CAP PO SCH (20:19)
[2024-03-29] MEDS: MAGNESIUM HYDROXIDE SUSP 30 ML UDC PO PRN (20:55)
[2024-03-30 08:44] LABS: BUN Creatinine Ratio 22.2 (10-20); Calcium 8.7 mg/dl (8.6-10.3); Creatinine Clr Calc Pharmacy 73.9 ml/min; Est GFR (African American) 101.1 ml/min; Est GFR (Non-African American) 87.3 ml/min; Potassium 4.1 mmol/L (3.5-5.1)
[2024-03-30 08:45] LABS: Hematocrit (blood only) 31.5 % (37.0-47.0); Hemoglobin 9.9 g/dl (12.0-16.0); Mean Corpuscular Hgb Conc 31.4 g/dL (32.0-36.0); Mean Corpuscular Volume 98.7 fL (80.0-100.0); Mean Platelet Volume 10.2 fL (9.4-12.4); Platelet Count 113 K/uL (130-400); RDW Coefficient of Variation 12.5 % (11.5-14.5); RDW Standard Deviation 45.1 fL (36.4-46.3); Red Blood Count 3.19 M/uL (4.20-5.40); White Blood Count 1.48 K/ul (4.8-10.8)
[2024-03-30 08:46] LABS: Basophils # (auto) 0.05 K/uL (0.00-0.20); Basophils % (auto) 3.4 %; Eosinophils # (auto) 0.09 K/uL (0.00-0.50); Eosinophils % (auto) 6.1 %; Lymphocytes # (auto) 0.89 K/uL (1.20-3.40); Lymphocytes % (auto) 60.1 %; Monocytes # (auto) 0.31 K/uL (0.11-0.59); Monocytes % (auto) 20.9 %; Neutrophils # (auto) 0.14 K/uL (1.40-6.50); Neutrophils % (auto) 9.5 %
--- NOTE | 2024-03-30 13:46 | Hospitalist Progress Note ---
Date of Service March 30, 2024 Assessment & Plan (1) Acute hypoxic respiratory failure: (2) Suspected malignant neoplasm of lung: (3) Myoclonic jerking: (4) Acute kidney injury: (5) Lymphadenopathy, mediastinal: (6) SVC obstruction: (7) Paroxysmal atrial fibrillation: (8) Hypokalemia: (9) Mild right ventricular systolic dysfunction: Plan 83-year-old lady with PMH of HFpEF, A-fib, thoracic aortic aneurysm, HTN, osteoporosis, inflamed seborrheic keratosis, major depressive disorder, tobacco use disorder, aortic valve replacement with bioprosthetic valve who presented to the ED with acute hypoxemic respiratory failure due to suspected lung malignancy and concern for metastatic disease. She is being managed for the following: Acute hypoxic respiratory failure Metastatic Small Cell Carcinoma Large mediastinal mass Postobstructive pna, r/o In the ED, patient was noted to be hypoxic on room air with sats in the mid 80s. Admitting imagings: CXR with asymmetric right hilar mass like enlargement. Cardiomegaly with pulmonary vascular congestion. Left basilar opacity. CTA chest: No PE. Large right hilar/upper lobe mass measuring 10 x 8 cm highly suspicious for primary bronchogenic malignancy. Right anterior diaphragmatic lymphadenopathy representing metastatic disease. 2.1 cm left upper lobe nodule abutting the mediastinum likely representing metastatic disease. Small right pleural effusion suggestive of malignant pleural effusion. Right hilar/upper lobe mass also results in severe narrowing of the SVC without evidence of occlusion at this time. CTAP: No definite evidence of metastatic disease. 1.9 cm left adrenal nodule which was likely present on CT of September 25, 2022. Pathologic right cardiophrenic angle lymph node. Small right pleural effusion. CT head and CTA head/neck : No acute finding. BioFire negative, pulmonology evaluated, no evidence of postobstructive pneumonia/discontinued antibiotic with pulm recommendation. Status post bronc 03/17. Post bronch complicated by worsening resp failure requiring bipap. Patient was weaned off of bipap and now on Oxymask c/w Pain Mx. Wean O2 as able. Pt refusing BiPAP. Speech evaled, appreciate recs. Rad onc evaled - Radiation was attempted, however, patient unable to lay flat and now with extreme nausea complicating attempt with Rad/Onc, therefore postponed. Heme/Onc evaled - S/P Cycle 1 of carbo/etoposide (03/18/2024) [carboplatin day 1, etoposide day 1-3]. Pt is improving, f/u med onc as OP. Post Chemo nausea control w/ olanzipine 2.5 qhs for nausea/vomting related to chemo x 4 days (completed 03/24) and as needed Compazine and Zofran. Improving. Follow-up with medical oncology upon discharge, outpatient PET/CT upon discharge. Palliative consult: Managing symptoms. Patient reports feeling better, appetite improving, nausea and vomiting under control. Monitor WBC She will undergo cycle 2 after 21 days of cycle 1 ?Vulvitis vs fungal infection: Gynecology evaled. zinc oxide and monistat. SVC syndrome HTN Nonobstructive CAD Valvular heart disease Hold diuretics (utilized prn as op) HOB elevated Continue Amlodipine 2.5 mg daily (initially attempted to increase, but labile pressures). c/w losartan, asa. Stroke like symptoms Myoclonic jerks Statin, asa, eliquis Pancytopenia suspect 2/2 chemo per ONC note received GCSF on 03/[address] Lyle who stated we could give additional dose of Neupogen 480mcg today and tomorrow (03/31 which is already ordered) follow cbc Normocytic anemia : Anemia labs: folate/b12 normal; iron 37, ferritin 58.4. c/w iron PO Atrial fibrillation: Stable rate today. c/w eliquis, amiodarone and lopressor. Potassium acceptable, mag repleted on 03/29 Ascending Aortic Aneurysm Dissection s/p Repair: CTM, BP control DVT Px: pt on eliquis. Conditional code: per admitting chest compressions are acceptable, no intubation updated PT/OT notes today, discussed with CM who will refer back to rehab and apply for auth, she is medically stable for discharge Updated pt's son Timur. He requests daily update from rounding provider. He is aware we are waiting on insurance [employer] for rehab A total of 50 min was spent coordinating, documenting, and providing care for this patient excluding time spent in the performance of separately billed services. This included personally viewing all current laboratories and imaging studies, medication reconciliation, outpatient chart review, and discussion with specialists. Admission and Anticipated Discharge Date Admission Date: March 15, 2024 Supervising Physician Co-Signing Physician Notes Patient was not seen by me Discussed patient with Advanced Provider Subjective Pt was seen and examined in room 356-2. Follow up Acute hypoxic resp failure. She feels better since she moved her bowels today. She denies f/c/s, chest pain, sob, n/v/d. She has chronic SOB but feels its at baseline. No acute concerns. Review of Systems Review of Systems: All systems reviewed & are unremarkable except as noted in HPI & below Physical Exam Physical Exam: Gen: WD/WN, elderly, F, NAD, A&O x3 HEENT: Normocephalic, atraumatic, conjunctivae moist, sclerae anicteric, mucous membranes moist. Lung: on oxygen via face mask, Clear to Auscultation bilaterally, no wheezes/rales Heart: Regular rate, regular rhythm, no murmurs, rubs, or gallops Abdomen: Soft, NT, ND +BS x 4 Extremities:RLE trace edema, ankle brace Skin: Warm, no rash, negative turgor. Results & Data Results & Data Vital Signs (Past 12 Hours) Vital Signs Temp Pulse Pulse Resp BP Pulse Ox O2 Del Method 03/30/24 08:17 36.7 C 68 72 21 131/64 100 Nasal Cannula 03/30/24 07:22 Oxymask 03/30/24 06:58 36.7 C 72 16 132/69 100 Oxymask O2 Flow Rate 03/30/24 08:17 5 03/30/24 07:22 2 03/30/24 06:58 2 Medications Administered Current Inpatient Medications Acetaminophen (Acetaminophen 325 Mg Tab) 650 mg PO Q4H PRN PRN Reason: Pain or Fever Stop: 04/14/24 20:33 Last Admin: 03/27/24 12:23 Dose: 650 mg Al Hydrox/Mg Hydrox/Simethicone (Aluminum/Magnesium Susp 30 Ml Udc) 15 ml PO Q4H PRN PRN Reason: Dyspepsia Stop: 04/14/24 20:33 Albuterol (Albuterol Hfa 8 Gm Inhaler) 2 puffs INH Q4 PRN PRN Reason: shortness of breath or wheezin Stop: 04/14/24 20:33 Last Admin: 03/29/24 14:17 Dose: 2 puffs Amiodarone HCl (Amiodarone 200 Mg Tab) 200 mg PO DAILY [facility] Stop: 04/15/24 08:59 Last Admin: 03/30/24 08:24 Dose: 200 mg Amlodipine Besylate (Amlodipine Besylate 5 Mg Tab) [facility] Stop: 04/21/24 08:59 Last Admin: 03/30/24 08:25 Dose: 2.5 mg Apixaban (Apixaban 5 Mg Tablet) 5 mg PO BID [facility] Stop: 04/17/24 20:59 Last Admin: 03/30/24 08:24 Dose: 5 mg Artificial Tears (Artificial Tears) 1 drops OPB QID PRN PRN Reason: Dryness Stop: 04/16/24 14:19 Aspirin (Aspirin 81 Mg Ectab) [facility] Stop: 04/18/24 08:59 Last Admin: 03/30/24 08:24 Dose: 81 mg Atorvastatin Calcium (Atorvastatin 40 Mg Tab) 40 mg PO [facility] Stop: 04/16/24 20:59 Last Admin: 03/29/24 20:19 Dose: 40 mg Buspirone HCl (Buspirone 5 Mg Tab) 10 mg PO [facility] Stop: 04/14/24 20:59 Last Admin: 03/29/24 20:19 Dose: 10 mg Docusate Sodium (Docusate Sodium 100 Mg Cap) 100 mg PO BID [facility] Stop: 04/28/24 20:59 Last Admin: 03/30/24 08:25 Dose: 100 mg Ferrous Sulfate (Ferrous Sulfate 325 Mg Tab) 325 mg PO [facility] Stop: 04/24/24 08:59 Last Admin: 03/30/24 08:25 Dose: 325 mg Filgrastim (Filgrastim 480 Mcg/1.6 Ml Vial) 480 mcg SC @0915 ONE Stop: 03/31/24 09:16 Gabapentin (Gabapentin 300 Mg Cap) 300 mg PO BID [facility] Stop: 04/14/24 20:59 Last Admin: 03/30/24 08:25 Dose: 300 mg Hydralazine HCl (Hydralazine Hcl 20 Mg/Ml Vial) 5 mg IV Q4H PRN PRN Reason: Systolic BP >175 Stop: 04/20/24 14:41 Hydromorphone HCl (Hydromorphone Inj 0.5 Mg/0.5 Ml Syr) 0.25 mg IV Q3H PRN PRN Reason: Pain, dyspnea Stop: 04/01/24 11:50 Last Admin: 03/25/24 21:58 Dose: 0.25 mg Hydroxyzine HCl (Hydroxyzine Hcl 10 Mg Tab) 10 mg PO QID PRN PRN Reason: Anxiety Stop: 04/28/24 05:03 Last Admin: 03/30/24 08:26 Dose: 10 mg Ondansetron HCl 6 mg/ Dextrose 53 mls @ 200 mls/hr IV Q6H PRN PRN Reason: Nausea And Vomiting Stop: 04/20/24 08:17 Prochlorperazine 5 mg/ Syringe 5 mls @ 5 mls/min IV Q6H PRN PRN Reason: Nausea And Vomiting Stop: 04/20/24 14:39 Palonosetron 0.25 mg/ Syringe 5 mls @ 10 mls/min IV DAILY PRN PRN Reason: nausea, vomiting Stop: 04/20/24 08:59 Loratadine (Loratadine 10 Mg Tab) 10 mg PO QAM [facility] Stop: 04/28/24 14:44 Last Admin: 03/30/24 07:15 Dose: 10 mg Lorazepam (Lorazepam 0.5 Mg Tab) 0.5 mg PO Q6 PRN PRN Reason: Anxiety Stop: 04/14/24 20:33 Last Admin: 03/20/24 00:31 Dose: 0.5 mg Losartan Potassium (Losartan Potassium 50 Mg Tab) 100 mg PO HS [facility] Stop: 04/14/24 20:59 Last Admin: 03/29/24 20:19 Dose: 100 mg Magnesium Hydroxide (Magnesium Hydroxide Susp 30 Ml Udc) 30 ml PO Q12H PRN PRN Reason: Constipation Stop: 04/14/24 20:33 Last Admin: 03/29/24 20:55 Dose: 30 ml Metoprolol Tartrate (Metoprolol Tartrate 50 Mg Tab) 50 mg PO BID [facility] Stop: 04/14/24 20:59 Last Admin: 03/30/24 08:25 Dose: 50 mg Miconazole Nitrate (Miconazole Nitrate 2% Cr 30 Gm Tube) 1 appln EXT BID [facility] Stop: 04/26/24 20:59 Last Admin: 03/30/24 08:29 Dose: 1 appln Petrolatum (Butt Paste (Zinc Oxide 16%) 171 Appln/57 Gm Jar) 1 appln EXT BID [facility] Stop: 04/26/24 20:59 Last Admin: 03/30/24 08:29 Dose: 1 appln Polyethylene Glycol (Polyethylene (Miralax) 17 Gm Pack) 17 gm PO DAILY PRN PRN Reason: Constipation Stop: 04/26/24 14:39 Sodium Chloride (Sodium Chloride 0.65% Na Soln 45 Ml ([place])) 2 sprays NA TID PRN PRN Reason: Nasal Congestion Stop: 04/27/24 22:01 Last Admin: 03/28/24 22:58 Dose: 2 sprays
[2024-03-30] MEDS: FILGRASTIM 480 MCG/1.6 ML VIAL SC ONE (15:24)
[2024-03-31 06:50] LABS: Hematocrit (blood only) 30.4 % (37.0-47.0); Hemoglobin 9.5 g/dl (12.0-16.0); Mean Corpuscular Hemoglobin 30.7 pg (25.0-34.0); Mean Corpuscular Hgb Conc 31.3 g/dL (32.0-36.0); Mean Corpuscular Volume 98.4 fL (80.0-100.0); Mean Platelet Volume 10.2 fL (9.4-12.4); Nucleated RBC # (auto) 0.02 K/uL (0.00-0.12); Nucleated RBC % (auto) 0.5 %; Platelet Count 129 K/uL (130-400); RDW Coefficient of Variation 12.6 % (11.5-14.5); RDW Standard Deviation 45.3 fL (36.4-46.3); Red Blood Count 3.09 M/uL (4.20-5.40); White Blood Count 4.44 K/ul (4.8-10.8)
[2024-03-31 07:08] LABS: BUN Creatinine Ratio 24.6 (10-20); Calcium 8.4 mg/dl (8.6-10.3); Creatinine Clr Calc Pharmacy 65.4 ml/min; Est GFR (African American) 97.2 ml/min; Est GFR (Non-African American) 83.8 ml/min; Magnesium 1.9 mg/dl (1.7-2.4); Potassium 3.7 mmol/L (3.5-5.1)
[2024-03-31] MEDS: FILGRASTIM 480 MCG/1.6 ML VIAL SC ONE (07:47)
--- NOTE | 2024-03-31 15:32 | Hospitalist Progress Note ---
Date of Service March 31, 2024 Assessment & Plan (1) Acute hypoxic respiratory failure: (2) Suspected malignant neoplasm of lung: (3) Myoclonic jerking: (4) Acute kidney injury: (5) Lymphadenopathy, mediastinal: (6) SVC obstruction: (7) Paroxysmal atrial fibrillation: (8) Hypokalemia: (9) Mild right ventricular systolic dysfunction: Plan 83-year-old lady with PMH of HFpEF, A-fib, thoracic aortic aneurysm, HTN, osteoporosis, inflamed seborrheic keratosis, major depressive disorder, tobacco use disorder, aortic valve replacement with bioprosthetic valve who presented to the ED with acute hypoxemic respiratory failure due to suspected lung malignancy and concern for metastatic disease. She is being managed for the following: Acute hypoxic respiratory failure Metastatic Small Cell Carcinoma Large mediastinal mass Postobstructive pna, r/o In the ED, patient was noted to be hypoxic on room air with sats in the mid 80s. Admitting imaging: CXR with asymmetric right hilar mass like enlargement. Cardiomegaly with pulmonary vascular congestion. Left basilar opacity. CTA chest: No PE. Large right hilar/upper lobe mass measuring 10 x 8 cm highly suspicious for primary bronchogenic malignancy. Right anterior diaphragmatic lymphadenopathy representing metastatic disease. 2.1 cm left upper lobe nodule abutting the mediastinum likely representing metastatic disease. Small right pleural effusion suggestive of malignant pleural effusion. Right hilar/upper lobe mass also results in severe narrowing of the SVC without evidence of occlusion at this time. CTAP: No definite evidence of metastatic disease. 1.9 cm left adrenal nodule which was likely present on CT of September 25, 2022. Pathologic right cardiophrenic angle lymph node. Small right pleural effusion. CT head and CTA head/neck : No acute finding. BioFire negative, pulmonology evaluated, no evidence of postobstructive pneumonia/discontinued antibiotic with pulm recommendation. Status post bronc 03/17. Post bronch complicated by worsening resp failure requiring bipap. Patient was weaned off of bipap and now on Oxymask c/w Pain Mx. Wean O2 as able. Pt refusing BiPAP. Speech evaled, appreciate recs. Rad onc evaled - Radiation was attempted, however, patient unable to lay flat and now with extreme nausea complicating attempt with Rad/Onc, therefore postponed. Heme/Onc evaled - S/P Cycle 1 of carbo/etoposide (03/18/2024) [carboplatin day 1, etoposide day 1-3]. Pt is improving, f/u med onc as OP. Post Chemo nausea control w/ olanzapine 2.5 qhs for nausea/vomiting related to chemo x 4 days (completed 03/24) and as needed Compazine and Zofran. Improving. Follow-up with medical oncology upon discharge, outpatient PET/CT upon discharge. Palliative consult: Managing symptoms. Patient reports feeling better, appetite improving, nausea and vomiting under control. Monitor WBC She will undergo cycle 2 after 21 days of cycle 1, due on 04/05/24 Pt has not had imaging of chest since 03/20, will repeat CXR x 1 with continued O2 at 2 L, some faint rales heard on exam, was not on O2 prior to this hospital stay. diuretics have been held, may benefit from a dose. ?Vulvitis vs fungal infection: Gynecology evaled. zinc oxide and monistat. SVC syndrome HTN Nonobstructive CAD Valvular heart disease Hold diuretics (utilized prn as op) HOB elevated Continue Amlodipine 2.5 mg daily (initially attempted to increase, but labile pressures). c/w losartan, asa. Stroke like symptoms Myoclonic jerks Statin, asa, eliquis Pancytopenia suspect 2/2 chemo per ONC note received GCSF on 03/21 Dr. Lyle rec additional dose of Neupogen 480mcg 03/30 and 03/31 Counts improving Normocytic anemia : Anemia labs: folate/b12 normal; iron 37, ferritin 58.4. c/w iron PO Atrial fibrillation: Stable rate today. c/w eliquis, amiodarone and lopressor. Potassium acceptable, mag repleted on 03/29 Ascending Aortic Aneurysm Dissection s/p Repair: CTM, BP control DVT Px: pt on eliquis. Conditional code: per admitting chest compressions are acceptable, no intubation updated PT/OT notes in chart, discussed with CM who will refer back to rehab and apply for auth, she is medically stable for discharge Peer to peer conducted today 03/31, expect call back from provider reviewing the case again and they are going to reach out to case management. Updated pt's son Timur. He requests daily update from rounding provider. He is aware we are waiting on insurance auth for rehab. A total of 50 min was spent coordinating, documenting, and providing care for this patient excluding time spent in the performance of separately billed services. This included personally viewing all current laboratories and imaging studies, medication reconciliation, outpatient chart review, and discussion with specialists. Admission and Anticipated Discharge Date Admission Date: March 15, 2024 Supervising Physician Co-Signing Physician Notes Patient seen and examined Reports occasional mild SOB Still requiring oxygen Will get CXR CM still working on placement Patient reviewed with Advanced Practitioner Agree with Advanced Practitioner's evaluation, findings and plans and take full responsibility I spent a total of 20 minutes coordinating, documenting and providing care for this patient excluding time spent in performance of separately billed services Subjective Patient was seen and examined this morning, she is doing well overall, has some complaints about soreness and shortness of breath at times. Denies SOB right now. She is wearing 2L via NC. Denies any acute chest pain, cough, no fevers chills or sweats presently. Reports is awaiting insurance authorization for discharge. Physical Exam Physical Exam: General: awake, alert, no apparent distress, Elderly white female Head: Normocephalic, atraumatic ENT: PERRL, EOMI, no pharyngeal exudate, mucous membranes moist Chest: On 2 LPM NC, faint rales, no adventitious breath sounds Cardiac: Regular rate and rhythm, +faint systolic murmur, no JVD, normal peripheral pulses, good capillary refill Abdominal: NABS x 4 quadrants, soft, nondistended, nontender to palpation, no rebound or guarding Extremities: Area of ecchymosis over the left antecubital region status post blood draws, otherwise normal inspection, trace peripheral edema, no erythema, calfs nontender to palpation Psych: Normal mood and affect Neuro: AAO x 3, strength intact bilaterally and rated 4/5, no motor deficits, speech is clear, no peripheral sensory deficits Results & Data Results & Data Vital Signs (Past 12 Hours) Vital Signs Temp Pulse Pulse Resp BP Pulse Ox O2 Del Method 03/31/24 14:39 36.9 C 79 18 112/60 91 Oxymask 03/31/24 07:43 36.4 C L 76 16 117/53 L 96 Oxymask 03/31/24 07:31 Oxymask 03/31/24 04:02 75 21 97 Oxymask O2 Flow Rate 03/31/24 14:39 2 03/31/24 07:43 2 03/31/24 07:31 2 03/31/24 04:02 3 Laboratory Results 03/31/24 06:20 WBC 4.44 L RBC 3.09 L Hgb 9.5 L Hct 30.4 L MCV 98.4 MCH 30.7 MCHC 31.3 L RDW Std Deviation 45.3 RDW Coeff of Michael 12.6 Plt Count 129 L MPV 10.2 Absolute Nucleated RBC 0.02 Nucleated RBC % (auto) 0.5 Sodium 141 Potassium 3.7 Chloride 100 Carbon Dioxide 38 H Anion Gap 3 BUN 15 Creatinine 0.61 Est Cr Clr Drug Dosing 65.4 Est GFR ( Amer) 97.2 Est GFR (Non-Af Amer) 83.8 BUN/Creatinine Ratio 24.6 H Glucose 93 Calcium 8.4 L Magnesium 1.9
[2024-03-31] MEDS: HYDROmorphone INJ 0.5 MG/0.5 ML SYR IV STA ×2 (16:09→21:56)
--- NOTE | 2024-03-31 16:56 | XRay Report ---
XR chest 1V portable HISTORY: 83 years-old Female Eval for edema with hx of valvular disease COMPARISON: 03/20/2024, CTA chest 03/15/2024 TECHNIQUE: AP view of the chest FINDINGS: Cardiac silhouette is enlarged. Median sternotomy. No pneumothorax. Trace left and moderate right ple ural effusions are similar to prior. Persistent right perihilar and right basilar consolidation. Decr eased size of the large right hilar mass. Mild ill-defined peripheral opacities in the left midlung. Pulmonary vascular congestion. IMPRESSION: 1. Cardiomegaly with pulmonary vascular congestion. 2. Ill-defined peripheral opacities of the left mid lung may be artifactual or represent pneumonia. 3. Moderate right-sided pleural effusion with persistent right basilar consolidation. 4. Large right-sided hilar mass is better seen on the comparison CTA of the chest. ACT 112: Negative or not required by law. The above report was generated using voice recognition software. It may contain grammatical, syntax o r spelling errors. Electronically signed by: Jordin Vela M.D. 03/31/2024 4:55 PM
[2024-04-01] MEDS: FUROSEMIDE 40 MG/4 ML VIAL IV ONE (09:44)
--- NOTE | 2024-04-01 09:45 | Pulmonology Progress Note ---
Date of Service April 01, 2024 Assessment & Plan (1) SVC obstruction: (2) Suspected malignant neoplasm of lung: (3) Abnormal CT scan of lung: (4) Pleural effusion: Plan Impression: 83-year-old female with small cell lung cancer currently on chemotherapy CT chest 03/15/2024 personally reviewed: Patchy opacity in the right upper lobe Centrilobular emphysema appreciated bilaterally Significant mediastinal as well as right hilar lymphadenopathy with compression of RBI -- Acute hypoxic respiratory failure It seems to be coming from most likely compressive atelectasis from the hilar mass that she has Continue with incentive spirometry and chemotherapy O2 supplementation to keep oxygen saturation between 90-92% -- Small cell lung cancer with significant narrowing of the RBI On chemotherapy --Pleural effusion Minimal on bedside ultrasound 04/01/2024 No need for any intervention Plan: Bedside ultrasound 04/01/24 shows minimal right-sided pleural effusion with atelectasis of the right lower lobe No need for any intervention. Continue with incentive spirometry Case was discussed with primary team Please note the above document was generated using voice recognition software. It may contain grammatical, syntax or spelling errors.Any formal questions or concerns about the content, text or information contained within the body of this dictation should be directly addressed to the provider for clarification. Admission and Anticipated Discharge Date Admission Date: March 15, 2024 Subjective Patient was seen by the previous machine repairman. Pulmonary consulted again as the chest x-ray seem to be showing worsening effusion. Previous pulmonary note as well as CAT scan of the chest reviewed Patient seen and examined at bedside. No acute distress, no adverse events overnight She was saturating 93-94% on oxime mask, 2 L. Denies any worsening of her shortness of breath It has been baseline. No chest pain. Has been taking diuretics. No headache, no blurry vision Fair appetite Review of Systems 2 Review of Systems: All systems reviewed & are unremarkable except as noted in Subjective Physical Exam 2 Physical Exam: Constitutional: No acute distress HEENT: EOMI, PERRLA Respiratory system: Decreased air entry on the right side, no wheeze, no rhonchi, mild crackles bilateral lower lobes CVS: S1-S2 positive, no murmurs or gallops Abdomen: Soft, nontender, nondistended, positive bowel sounds x4 Extremities: +2 pulses bilaterally radialis/ dorsalis pedis, no cyanosis, minimal pitting edema bilateral lower extremity Neuro: Awake alert oriented x3 Psych: Normal mood and affect G/U: No Garner Skin: no rashes, warm and dry Lymphatic: no cervical or axillary lymphadenopathy Results & Data Results & Data Vital Signs (Past 12 Hours) Vital Signs Temp Pulse Pulse Resp BP Pulse Ox O2 Del Method 04/01/24 09:16 90 20 111/51 L 95 Oxymask 04/01/24 07:03 36.7 C 83 16 119/56 L 94 Oxymask 03/31/24 22:18 73 14 91 Oxymask O2 Flow Rate 04/01/24 09:16 2 04/01/24 07:03 2 03/31/24 22:18 3 Laboratory Results 03/31/24 06:20 03/31/24 06:20 PG Care Time/CCT Total # of Minutes Spent Total Time Spent with Patient: Total time spent is greater than 50% in coordination of care (as documented) at patient's floor/unit and/or counseling patient: Coding Level of Care Code 21339 SUB INP/OBS CARE 3/50MIN Diagnoses SVC obstruction I87.1 Suspected malignant neoplasm of lung R68.[address] scan of lung R91.8 Pleural effusion J90
--- NOTE | 2024-04-01 11:13 | Procedure Note ---
Procedure Note Date of Service April 01, 2024 Note Bedside Ultrasound: Lung: Right:-Minimal right-sided pleural effusion with atelectasis of the right lower lobe, B-lines anteriorly and posteriorly Left:-No left-sided pleural effusion, B-lines appreciated anteriorly and posteriorly Please note the above document was generated using voice recognition software. It may contain grammatical, syntax or spelling errors.Any formal questions or concerns about the content, text or information contained within the body of this dictation should be directly addressed to the provider for clarification. Coding CPT Codes Pulmonary/Thoracic - Pulmonary and Thoracic: 28749 US, Chest, real time with imaging documentation ([id number]) [facility] [place] Procedure Codes (Charges) Pulmonary/Thoracic Procedure 1: Pulmonary and Thoracic: 16994 US, Chest, real time with imaging documentation
--- NOTE | 2024-04-01 12:52 | Hospitalist Progress Note ---
Date of Service April 01, 2024 Assessment & Plan (1) Acute hypoxic respiratory failure: (2) Suspected malignant neoplasm of lung: (3) Myoclonic jerking: (4) Acute kidney injury: (5) Lymphadenopathy, mediastinal: (6) SVC obstruction: (7) Paroxysmal atrial fibrillation: (8) Hypokalemia: (9) Mild right ventricular systolic dysfunction: Plan 83-year-old lady with PMH of HFpEF, A-fib, thoracic aortic aneurysm, HTN, osteoporosis, inflamed seborrheic keratosis, major depressive disorder, tobacco use disorder, aortic valve replacement with bioprosthetic valve who presented to the ED with acute hypoxemic respiratory failure due to suspected lung malignancy and concern for metastatic disease. Acute hypoxic respiratory failure Metastatic Small Cell Carcinoma Large mediastinal mass Postobstructive pna, r/o In the ED, patient was noted to be hypoxic on room air with sats in the mid 80s. Admitting imaging: CXR with asymmetric right hilar mass like enlargement. Cardiomegaly with pulmonary vascular congestion. Left basilar opacity. CTA chest: No PE. Large right hilar/upper lobe mass measuring 10 x 8 cm highly suspicious for primary bronchogenic malignancy. Right anterior diaphragmatic lymphadenopathy representing metastatic disease. 2.1 cm left upper lobe nodule abutting the mediastinum likely representing metastatic disease. Small right pleural effusion suggestive of malignant pleural effusion. Right hilar/upper lobe mass also results in severe narrowing of the SVC without evidence of occlusion at this time. CTAP: No definite evidence of metastatic disease. 1.9 cm left adrenal nodule which was likely present on CT of September 25, 2022. Pathologic right cardiophrenic angle lymph node. Small right pleural effusion. CT head and CTA head/neck : No acute finding. BioFire negative, pulmonology evaluated, no evidence of postobstructive pneumonia/discontinued antibiotic with pulm recommendation. Status post bronc 03/17. Post bronch complicated by worsening resp failure requiring bipap. Patient was weaned off of bipap and now on Oxymask c/w Pain Mx. Wean O2 as able. Pt refusing BiPAP. Speech evaled, appreciate recs. Rad onc evaled - Radiation was attempted, however, patient unable to lay flat and now with extreme nausea complicating attempt with Rad/Onc, therefore postponed. Heme/Onc evaled - S/P Cycle 1 of carbo/etoposide (03/18/2024) [carboplatin day 1, etoposide day 1-3]. Cycle 2 after 21 days of cycle 1, due on 04/07/24 Post Chemo nausea control w/ olanzapine 2.5 qhs for nausea/vomiting related to chemo x 4 days (completed 03/24) and as needed Compazine and Zofran. Resolved. Follow-up with medical oncology upon discharge, outpatient PET/CT upon discharge. Palliative consult: Managing symptoms. Patient reports feeling better, appetite improving, nausea and vomiting under control. Monitor WBC --improved repeat CXR on 03/31 showed pulm vasc congestion, suspected atelectasis, and pt is being weaned to NC 2 L, was given lasix 40 mg IV 04/01 and pt improved. 04/01 : IV diuresis planned for 04/02 and dc per attending over the weekend. Appreciate pulm evaluation today - per their report no further imaging or procedure Will need to continue bumex 3 mg PO 1-2 times weekly pending edema in lower extremities at [facility] ?Vulvitis vs fungal infection: Gynecology evaled. zinc oxide and monistat. SVC syndrome HTN Nonobstructive CAD Valvular heart disease Hold diuretics (utilized prn as op) HOB elevated Continue Amlodipine 2.5 mg daily (initially attempted to increase, but labile pressures). c/w losartan, asa. Stroke like symptoms Myoclonic jerks Statin, asa, eliquis Pancytopenia suspect 2/2 chemo per ONC note received GCSF on 03/21 Dr. Lyle rec additional dose of Neupogen 480mcg 03/30 and 03/31 Counts improving Normocytic anemia : Anemia labs: folate/b12 normal; iron 37, ferritin 58.4. c/w iron PO Atrial fibrillation: Stable rate today. c/w eliquis, amiodarone and lopressor. Potassium acceptable, mag repleted on 03/29 Ascending Aortic Aneurysm Dissection s/p Repair: CTM, BP control DVT Px: pt on eliquis. Conditional code: per admitting chest compressions are acceptable, no intubation updated PT/OT notes in chart, discussed with CM who will refer back to rehab, she is medically stable for discharge Peer to peer conducted 03/31, [facility] denied by insurance today. Updated pt's son Timur. He requests daily update from rounding provider. He is aware we are waiting on beds at [facility], reaching out again to [facility] to see if they will reconsider, rehab at [facility] denied. A total of 50 min was spent coordinating, documenting, and providing care for this patient excluding time spent in the performance of separately billed services. This included personally viewing all current laboratories and imaging studies, medication reconciliation, outpatient chart review, and discussion with specialists. Update from ---- PT is accepted at [facility] for Thursday. Rehab will need to know exact dates of outpt PET scan and chemo dates. Please have team confirm with oncology. Admission and Anticipated Discharge Date Admission Date: March 15, 2024 Supervising Physician Co-Signing Physician Notes Patient seen and examined Reported shortness of breath Still requiring oxygen. Diminished breath sounds XR chest showing possible right pleural effusion, pulm vas congestion Give IV lasix and monitor Wean oxygen Will appreciate pulm eval Patient reviewed with Advanced Practitioner Agree with Advanced Practitioner's evaluation, findings and plans and take full responsibility Subjective Patient is seen and examined this morning, states that she is awaiting bed placement. She was denied by [facility] this morning and is frustrated by such. She states that she feels better after getting, notes that her hair is beginning to fall out with brushing it status postchemotherapy. Has attempted to wean off OxyMask, nasal cannula in place, states it makes her nose dry so we will add water for humidification. Denies any specific shortness of breath. She notes lower extremity edema and states that she previously took Bumex 3 mg 1 or 2 times per week prior to her hospital stay when edema in feet became more obvious. Physical Exam Physical Exam: General: awake, alert, no apparent distress, Elderly white female Head: Normocephalic, atraumatic ENT: PERRL, EOMI, no pharyngeal exudate, mucous membranes moist Chest: On 2 LPM NC, breath sounds improved, no rales or rhonchi, no wheeze Cardiac: Regular rate and rhythm, +faint systolic murmur, no JVD, normal peripheral pulses, good capillary refill Abdominal: NABS x 4 quadrants, soft, nondistended, nontender to palpation, no rebound or guarding Extremities: Area of ecchymosis over the left antecubital region status post blood draws, otherwise normal inspection, trace peripheral edema, R ankle in brace, no erythema, calfs nontender to palpation Psych: Normal mood and affect Neuro: AAO x 3, strength intact bilaterally and rated 4/5, no motor deficits, speech is clear, no peripheral sensory deficits Results & Data Results & Data Vital Signs (Past 12 Hours) Vital Signs Temp Pulse Pulse Resp BP Pulse Ox O2 Del Method 04/01/24 09:16 90 20 111/51 L 95 Oxymask 04/01/24 08:00 Oxymask 04/01/24 07:03 36.7 C 83 16 119/56 L 94 Oxymask O2 Flow Rate 04/01/24 09:16 2 04/01/24 08:00 2 04/01/24 07:03 2
[2024-04-01] MEDS: KETOROLAC TROMETHAMINE 15 MG/ML VIAL IV ONE (20:55)
[2024-04-02 07:09] LABS: BUN Creatinine Ratio 23.3 (10-20); Calcium 8.8 mg/dl (8.6-10.3); Creatinine Clr Calc Pharmacy 46.4 ml/min; Est GFR (African American) 72.4 ml/min; Est GFR (Non-African American) 62.5 ml/min; Potassium 3.2 mmol/L (3.5-5.1)
--- NOTE | 2024-04-02 07:16 | XRay Report ---
SINGLE VIEW CHEST CLINICAL HISTORY: Follow-up congestive failure. FINDINGS: An AP, portable, upright chest radiograph is compared to study dated 03/31/2024 and correlate d with chest CT dated 03/15/2024. The patient is status post midline sternotomy. The heart is enlarged and atherosclerotic calcification of the thoracic aorta. Pulmonary vascular congestion persists emph ysema and chronic interstitial thickening is similar to previous. A large mediastinal mass lesion was much better assessed on the recent chest CT. The right and moderate left pleural effusions with depe ndent consolidation. No pneumothorax is seen. The skeletal structures are osteopenic. The bony thorax is grossly intact. IMPRESSION: 1. Cardiomegaly and emphysema with pulmonary vascular congestion. This is similar to 03/31/2024. 2. Right large left pleural effusions with dependent consolidation. 3. A large mediastinal mass lesion was better assessed on the recent chest CT. ACT 112: Negative or not required by law. Electronically signed by: Manjinder Myers M.D. 04/02/2024 7:14 AM
[2024-04-02 07:37] LABS: Basophils # (auto) 0.06 K/uL (0.00-0.20); Basophils % (auto) 0.3 %; Eosinophils # (auto) 0.11 K/uL (0.00-0.50); Eosinophils % (auto) 0.5 %; Hematocrit (blood only) 29.8 % (37.0-47.0); Hemoglobin 9.4 g/dl (12.0-16.0); Immature Granulocytes # (auto) 1.82 K/uL (0.01-0.20); Immature Granulocytes % (auto) 8.3 %; Lymphocytes # (auto) 2.79 K/uL (1.20-3.40); Lymphocytes % (auto) 12.7 %; Mean Corpuscular Hemoglobin 30.8 pg (25.0-34.0); Mean Corpuscular Hgb Conc 31.5 g/dL (32.0-36.0); Mean Corpuscular Volume 97.7 fL (80.0-100.0); Mean Platelet Volume 9.8 fL (9.4-12.4); Monocytes # (auto) 1.53 K/uL (0.11-0.59); Neutrophils # (auto) 15.62 K/uL (1.40-6.50); Neutrophils % (auto) 71.2 %; Nucleated RBC # (auto) 0.04 K/uL (0.00-0.12); Nucleated RBC % (auto) 0.2 %; Platelet Count 197 K/uL (130-400); RBC Morphology Unremarkable; RDW Coefficient of Variation 13.1 % (11.5-14.5); RDW Standard Deviation 46.1 fL (36.4-46.3); Red Blood Count 3.05 M/uL (4.20-5.40); White Blood Count 21.93 K/ul (4.8-10.8)
[2024-04-02] MEDS: FUROSEMIDE 40 MG/4 ML VIAL IV SCH (09:26)
--- NOTE | 2024-04-02 10:54 | Pulmonology Progress Note ---
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 CT chest 03/15/2024 personally reviewed: Patchy opacity in the right upper lobe Centrilobular emphysema appreciated bilaterally Significant mediastinal as well as right hilar lymphadenopathy with compression of RBI -- Acute hypoxic respiratory failure It seems to be coming from most likely compressive atelectasis from the hilar mass that she has Continue with incentive spirometry and chemotherapy O2 supplementation to keep oxygen saturation between 90-92% -- Small cell lung cancer with significant narrowing of the RBI On chemotherapy --Pleural effusion Minimal on bedside ultrasound 04/01/2024 No need for any intervention Plan: Bedside ultrasound 04/01/24 shows minimal right-sided pleural effusion with atelectasis of the right lower lobe Chest x-ray from today does not show any significant change from yesterday. Continue with incentive spirometry Case was discussed with primary team No further recommendation from pulmonary perspective, will sign off Please call directly with any questions Please note the above document was generated using voice recognition software. It may contain grammatical, syntax or spelling errors.Any formal questions or concerns about the content, text or information contained within the body of this dictation should be directly addressed to the provider for clarification. Admission and Anticipated Discharge Date Admission Date: March 15, 2024 Subjective Patient seen and examined at bedside. No acute distress, no adverse events overnight Patient's friend was in the room at the time of examination She was saturating 89-90% on 2 L nasal cannula while she was having her lunch. I increase it to 3 L Occasional cough with clear phlegm. Denies any hemoptysis She stated that she is overall feeling the same Denies any nausea vomiting. Appetite is fair Review of Systems 2 Review of Systems: All systems reviewed & are unremarkable except as noted in Subjective Physical Exam 2 Physical Exam: Constitutional: No acute distress HEENT: EOMI, PERRLA Respiratory system: Decreased air entry on the right side, no wheeze, no rhonchi, mild crackles bilateral lower lobes CVS: S1-S2 positive, no murmurs or gallops Abdomen: Soft, nontender, nondistended, positive bowel sounds x4 Extremities: +2 pulses bilaterally radialis/ dorsalis pedis, no cyanosis, minimal pitting edema bilateral lower extremity Neuro: Awake alert oriented x3 Psych: Normal mood and affect G/U: No Garner Skin: no rashes, warm and dry Lymphatic: no cervical or axillary lymphadenopathy Results & Data Results & Data Vital Signs (Past 12 Hours) Vital Signs Temp Pulse Resp BP Pulse Ox O2 Del Method O2 Flow Rate 04/02/24 09:10 79 20 108/41 L 91 Oxymask 2 04/02/24 08:11 36.6 C 74 16 97/48 L 92 Oxymask 04/02/24 07:20 Oxymask 2 04/02/24 05:00 63 22 96 Oxymask 3 Laboratory Results 04/02/24 06:12 04/02/24 06:12 PG Care Time/CCT Total # of Minutes Spent Total Time Spent with Patient: Total time spent is greater than 50% in coordination of care (as documented) at patient's floor/unit and/or counseling patient: Coding Level of Care Code 97776 SUB INP/OBS CARE 2/35MIN Diagnoses SVC obstruction I87.1 Suspected malignant neoplasm of lung R68.[address] scan of lung R91.8 Pleural effusion J90
--- NOTE | 2024-04-02 13:32 | Hospitalist Progress Note ---
Date of Service April 02, 2024 Assessment & Plan (1) Acute hypoxic respiratory failure: (2) Suspected malignant neoplasm of lung: (3) Myoclonic jerking: (4) Acute kidney injury: (5) Lymphadenopathy, mediastinal: (6) SVC obstruction: (7) Paroxysmal atrial fibrillation: (8) Hypokalemia: (9) Mild right ventricular systolic dysfunction: Plan 83-year-old lady with PMH of HFpEF, A-fib, thoracic aortic aneurysm, HTN, osteoporosis, inflamed seborrheic keratosis, major depressive disorder, tobacco use disorder, aortic valve replacement with bioprosthetic valve who presented to the ED with acute hypoxemic respiratory failure due to suspected lung malignancy and concern for metastatic disease. Acute hypoxic respiratory failure Metastatic Small Cell Carcinoma Large mediastinal mass Postobstructive pneumonia In the ED, patient was noted to be hypoxic on room air with sats in the mid 80s. Admitting imaging: CXR with asymmetric right hilar mass like enlargement. Cardiomegaly with pulmonary vascular congestion. Left basilar opacity. CTA chest: No PE. Large right hilar/upper lobe mass measuring 10 x 8 cm highly suspicious for primary bronchogenic malignancy. Right anterior diaphragmatic lymphadenopathy representing metastatic disease. 2.1 cm left upper lobe nodule abutting the mediastinum likely representing metastatic disease. Small right pleural effusion suggestive of malignant pleural effusion. Right hilar/upper lobe mass also results in severe narrowing of the SVC without evidence of occlusion at this time. CTAP: No definite evidence of metastatic disease. 1.9 cm left adrenal nodule which was likely present on CT of September 25, 2022. Pathologic right cardiophrenic angle lymph node. Small right pleural effusion. CT head and CTA head/neck : No acute finding. BioFire negative, pulmonology evaluated, no evidence of postobstructive pneumonia/discontinued antibiotic with pulm recommendation. Status post bronc 03/17. Post bronch complicated by worsening resp failure requiring bipap. Patient was weaned off of bipap and now on Oxymask c/w Pain Mx. Wean O2 as able. Pt refusing BiPAP. Speech recs noted. Rad onc evaled - Radiation was attempted, however, patient unable to lay flat and now with extreme nausea complicating attempt with Rad/Onc, therefore postponed. Heme/Onc evaled - S/P Cycle 1 of carbo/etoposide (03/18/2024) [carboplatin day 1, etoposide day 1-3]. Cycle 2 after 21 days of cycle 1, due on 04/07/24 Post Chemo nausea control w/ olanzapine 2.5 qhs for nausea/vomiting related to chemo x 4 days (completed 03/24) and as needed Compazine and Zofran. Resolved. Follow-up with medical oncology upon discharge, outpatient PET/CT upon discharge. Palliative consult: Managing symptoms. Patient reports feeling better, appetite improving, nausea and vomiting under control. Repeat CXR on 03/31 showed pulm vasc congestion, suspected atelectasis, and pt is being weaned to NC 2 L, was given lasix 40 mg IV 04/01 and 04/02 Pulm eval noted. Bedside USS by pulm on 04/01 on ly shows minimal right pleural effusion with atelectasis of right lower lobe Lasix held for now Replete hypokalemia Was on bumex 3 mg PO 1-2 times weekly prior to admission per patient ?Vulvitis vs fungal infection: Gynecology evaled. zinc oxide and monistat. SVC syndrome HTN Nonobstructive CAD Valvular heart disease Hold diuretics (utilized prn as op) HOB elevated Continue Amlodipine 2.5 mg daily (initially attempted to increase, but labile pressures). c/w losartan, asa. Stroke like symptoms Myoclonic jerks Statin, asa, eliquis Pancytopenia Likely due to chemotherapy per ONC note received GCSF on 03/21 Dr. Lyel recommended additional dose of Neupogen 480mcg 03/30 and 03/31 Leukocytosis today at 21K due to GCSF Normocytic anemia : Anemia labs: folate/b12 normal; iron 37, ferritin 58.4. c/w iron PO Atrial fibrillation: Continue eliquis, amiodarone and lopressor. Ascending Aortic Aneurysm Dissection s/p Repair: CTM, BP control DVT Px: pt on eliquis. Conditional code: per admitting chest compressions are acceptable, no intubation Peer to peer conducted 03/31, [facility] denied by insurance today. Per CM---- PT is accepted at [facility] for Thursday. Rehab will need to know exact dates of outpt PET scan and chemo dates. Will confirm with oncology on Thursday I spent a total of 40 minutes coordinating, documenting and providing care for this patient excluding time spent in performance of separately billed services Admission and Anticipated Discharge Date Admission Date: March 15, 2024 Subjective Patient seen and examined Reports some shortness of breath occcasionally Reports mild cough Denied any other complaints Physical Exam Constitutional: + well hydrated; no acute distress Eyes: PERRL, conjunctivae normal, anicteric sclerae ENMT: external ear and nose normal, oropharynx normal Respiratory: On oxymask (per preference), not in resp distress, diminished breath sounds R>L Cardiovascular: S1 S2 Gastrointestinal (Abdomen): normal bowel sounds, soft, nontender, no hepatosplenomegaly Neurologic: PERRL, EOMI, accommodation nl, no face palsy, no dysarthria Psychiatric: A+Ox3, euthymic affect Results & Data Results & Data Vital Signs (Past 12 Hours) Vital Signs Temp Pulse Resp BP Pulse Ox O2 Del Method O2 Flow Rate 04/02/24 09:10 79 20 108/41 L 91 Oxymask 2 04/02/24 08:11 36.6 C 74 16 97/48 L 92 Oxymask 04/02/24 07:20 Oxymask 2 04/02/24 05:00 63 22 96 Oxymask 3 Laboratory Results Abnormal lab results 04/02/24 Range/Units 06:12 WBC 21.93 H (4.8-10.8) K/ul RBC 3.05 L (4.20-5.40) M/uL Hgb 9.4 L (12.0-16.0) g/dl Hct 29.8 L (37.0-47.0) % MCHC 31.5 L (32.0-36.0) g/dL Neut # (Auto) 15.62 H (1.40-6.50) K/uL [place] # (Auto) 1.53 H (0.11-0.59) K/uL Immature Gran # (Auto) 1.82 H (0.01-0.20) K/uL Potassium 3.2 L (3.5-5.1) mmol/L Chloride 93 L (98-107) mmol/L Carbon Dioxide 42 H* (21-32) mmol/L BUN/Creatinine Ratio 23.3 H (10-20) Glucose 101 H (70-99(Fasting)) mg/dl
[2024-04-02] MEDS: POTASSIUM CHLORIDE CRTAB 20 MEQ TABCR PO STA (14:51)
[2024-04-02] MEDS: HYDROmorphone INJ 0.5 MG/0.5 ML SYR IV STA (23:02)
[2024-04-03] MEDS: traMADol HCL 50 MG TABLET PO STA ×2 (02:56)
[2024-04-03] MEDS: FLUTICASONE PROPIONATE NA SPR 16 GM BTL STA (03:16)
[2024-04-03] MEDS: diphenhydrAMINE Capsule 25 MG CAP PO ONE (03:44)
[2024-04-03] MEDS: FLUTICASONE PROPIONATE NA SPR 16 GM BTL SCH (07:32)
[2024-04-03 09:21] LABS: Hematocrit (blood only) 34.3 % (37.0-47.0); Hemoglobin 10.7 g/dl (12.0-16.0); Mean Corpuscular Hemoglobin 30.7 pg (25.0-34.0); Mean Corpuscular Hgb Conc 31.2 g/dL (32.0-36.0); Mean Corpuscular Volume 98.3 fL (80.0-100.0); Mean Platelet Volume 9.7 fL (9.4-12.4); Nucleated RBC # (auto) 0.03 K/uL (0.00-0.12); Nucleated RBC % (auto) 0.2 %; Platelet Count 214 K/uL (130-400); RDW Coefficient of Variation 13.2 % (11.5-14.5); RDW Standard Deviation 46.5 fL (36.4-46.3); Red Blood Count 3.49 M/uL (4.20-5.40); White Blood Count 15.67 K/ul (4.8-10.8)
[2024-04-03 09:28] LABS: BUN Creatinine Ratio 31.7 (10-20); Calcium 9.1 mg/dl (8.6-10.3); Creatinine Clr Calc Pharmacy 66.5 ml/min; Est GFR (African American) 97.7 ml/min; Est GFR (Non-African American) 84.3 ml/min; Magnesium 2.1 mg/dl (1.7-2.4); Phosphorus 3.7 mg/dl (2.5-4.9); Potassium 3.7 mmol/L (3.5-5.1)
--- NOTE | 2024-04-03 16:01 | Hospitalist Progress Note ---
Date of Service April 03, 2024 Assessment & Plan (1) Acute hypoxic respiratory failure: (2) Suspected malignant neoplasm of lung: (3) Myoclonic jerking: (4) Acute kidney injury: (5) Lymphadenopathy, mediastinal: (6) SVC obstruction: (7) Paroxysmal atrial fibrillation: (8) Hypokalemia: (9) Mild right ventricular systolic dysfunction: Plan 83-year-old lady with PMH of HFpEF, A-fib, thoracic aortic aneurysm, HTN, osteoporosis, inflamed seborrheic keratosis, major depressive disorder, tobacco use disorder, aortic valve replacement with bioprosthetic valve who presented to the ED with acute hypoxemic respiratory failure due to suspected lung malignancy and concern for metastatic disease. Acute hypoxic respiratory failure Metastatic Small Cell Carcinoma Large mediastinal mass Postobstructive pneumonia In the ED, patient was noted to be hypoxic on room air with sats in the mid 80s. Admitting imaging: CXR with asymmetric right hilar mass like enlargement. Cardiomegaly with pulmonary vascular congestion. Left basilar opacity. CTA chest: No PE. Large right hilar/upper lobe mass measuring 10 x 8 cm highly suspicious for primary bronchogenic malignancy. Right anterior diaphragmatic lymphadenopathy representing metastatic disease. 2.1 cm left upper lobe nodule abutting the mediastinum likely representing metastatic disease. Small right pleural effusion suggestive of malignant pleural effusion. Right hilar/upper lobe mass also results in severe narrowing of the SVC without evidence of occlusion at this time. CTAP: No definite evidence of metastatic disease. 1.9 cm left adrenal nodule which was likely present on CT of September 25, 2022. Pathologic right cardiophrenic angle lymph node. Small right pleural effusion. CT head and CTA head/neck : No acute finding. BioFire negative, pulmonology evaluated, no evidence of postobstructive pneumonia/discontinued antibiotic with pulm recommendation. Status post bronc 03/17. Post bronch complicated by worsening resp failure requiring bipap. Patient was weaned off of bipap and now on Oxymask c/w Pain Mx. Wean O2 as able. Pt refusing BiPAP. Speech recs noted. Rad onc evaled - Radiation was attempted, however, patient unable to lay flat and now with extreme nausea complicating attempt with Rad/Onc, therefore postponed. Heme/Onc evaled - S/P Cycle 1 of carbo/etoposide (03/18/2024) [carboplatin day 1, etoposide day 1-3]. Cycle 2 after 21 days of cycle 1, due on 04/07/24 Post Chemo nausea control w/ olanzapine 2.5 qhs for nausea/vomiting related to chemo x 4 days (completed 03/24) and as needed Compazine and Zofran. Resolved. Follow-up with medical oncology upon discharge, outpatient PET/CT upon discharge. Palliative consult: Managing symptoms. Patient reports feeling better, appetite improving, nausea and vomiting under control. Repeat CXR on 03/31 showed pulm vasc congestion, suspected atelectasis, and pt is being weaned to NC 2 L, was given lasix 40 mg IV 04/01 and 04/02 Pulm eval noted. Bedside USS by pulm on 04/01 on ly shows minimal right pleural effusion with atelectasis of right lower lobe Lasix held for now Replete hypokalemia Was on bumex 3 mg PO 1-2 times weekly prior to admission per patient ?Vulvitis vs fungal infection: Gynecology evaled. zinc oxide and monistat. SVC syndrome HTN Nonobstructive CAD Valvular heart disease Hold diuretics (utilized prn as op) HOB elevated Continue Amlodipine 2.5 mg daily (initially attempted to increase, but labile pressures). c/w losartan, asa. Stroke like symptoms Myoclonic jerks Statin, asa, eliquis Pancytopenia Likely due to chemotherapy per ONC note received GCSF on 03/21 Dr. Lyle recommended additional dose of Neupogen 480mcg 03/30 and 03/31 Leukocytosis today at 15K due to GCSF Normocytic anemia : Anemia labs: folate/b12 normal; iron 37, ferritin 58.4. c/w iron PO Atrial fibrillation: Continue eliquis, amiodarone and lopressor. Ascending Aortic Aneurysm Dissection s/p Repair: CTM, BP control Melatonin HS to aid with sleep Continue gabapentin 300mg BID DVT Px: pt on eliquis. Conditional code: per admitting chest compressions are acceptable, no intubation Peer to peer conducted 03/31, [facility] denied by insurance. Per CM-PT is accepted at [facility] for Thursday. Rehab will need to know exact dates of outpt PET scan and chemo dates. Will confirm with oncology on Thursday I spent a total of 35 minutes coordinating, documenting and providing care for this patient excluding time spent in performance of separately billed services Admission and Anticipated Discharge Date Admission Date: March 15, 2024 Subjective Patient seen and examined Reports poor sleep last night Reports occasional neuropathic pain going down legs, chronic Reports cough Denied any other complaints Physical Exam Constitutional: + well hydrated; no acute distress Eyes: PERRL, conjunctivae normal, anicteric sclerae ENMT: external ear and nose normal, oropharynx normal Respiratory: On oxymask (per preference), not in resp distress, diminished breath sounds Cardiovascular: S1 S2 Gastrointestinal (Abdomen): normal bowel sounds, soft, nontender, no hepatosplenomegaly Neurologic: PERRL, EOMI, accommodation nl, no face palsy, no dysarthria Psychiatric: A+Ox3, euthymic affect Results & Data Results & Data Vital Signs (Past 12 Hours) Vital Signs Temp Pulse Pulse Resp BP Pulse Ox O2 Del Method 04/03/24 14:57 36.6 C 68 16 118/68 96 Oxymask 04/03/24 07:42 36.5 C 04/03/24 07:25 70 18 125/64 93 Oxymask 04/03/24 07:15 Oxymask O2 Flow Rate 04/03/24 14:57 2 04/03/24 07:42 04/03/24 07:25 2 04/03/24 07:15 2 Laboratory Results Abnormal lab results 04/03/24 Range/Units 08:18 WBC 15.67 H (4.8-10.8) K/ul RBC 3.49 L (4.20-5.40) M/uL Hgb 10.7 L (12.0-16.0) g/dl Hct 34.3 L (37.0-47.0) % MCHC 31.2 L (32.0-36.0) g/dL RDW Std Deviation 46.5 H (36.4-46.3) fL Chloride 93 L (98-107) mmol/L Carbon Dioxide 45 H* (21-32) mmol/L BUN/Creatinine Ratio 31.7 H (10-20)
[2024-04-03] MEDS: MELATONIN 3 MG TAB PO SCH (21:40)
[2024-04-04 07:16] LABS: Hemoglobin 9.4 g/dl (12.0-16.0); Mean Corpuscular Hemoglobin 30.6 pg (25.0-34.0); Mean Corpuscular Hgb Conc 31.3 g/dL (32.0-36.0); Mean Corpuscular Volume 97.7 fL (80.0-100.0); Mean Platelet Volume 9.6 fL (9.4-12.4); Nucleated RBC # (auto) 0.03 K/uL (0.00-0.12); Nucleated RBC % (auto) 0.3 %; Platelet Count 203 K/uL (130-400); RDW Coefficient of Variation 13.2 % (11.5-14.5); RDW Standard Deviation 46.4 fL (36.4-46.3); Red Blood Count 3.07 M/uL (4.20-5.40); White Blood Count 10.64 K/ul (4.8-10.8)
[2024-04-04 07:41] LABS: BUN Creatinine Ratio 26.5 (10-20); Calcium 8.8 mg/dl (8.6-10.3); Creatinine Clr Calc Pharmacy 58.7 ml/min; Est GFR (African American) 93.8 ml/min; Est GFR (Non-African American) 80.9 ml/min; Potassium 3.7 mmol/L (3.5-5.1)
--- NOTE | 2024-04-04 08:44 | Hospitalist Progress Note ---
Date of Service April 04, 2024 Assessment & Plan (1) Acute hypoxic respiratory failure: (2) Suspected malignant neoplasm of lung: (3) Myoclonic jerking: (4) Acute kidney injury: (5) Lymphadenopathy, mediastinal: (6) SVC obstruction: (7) Paroxysmal atrial fibrillation: (8) Hypokalemia: (9) Mild right ventricular systolic dysfunction: Plan 83-year-old lady with PMH of HFpEF, A-fib, thoracic aortic aneurysm, HTN, osteoporosis, inflamed seborrheic keratosis, major depressive disorder, tobacco use disorder, aortic valve replacement with bioprosthetic valve who presented to the ED with acute hypoxemic respiratory failure due to suspected lung malignancy and concern for metastatic disease. Acute hypoxic respiratory failure Metastatic Small Cell Carcinoma Large mediastinal mass Postobstructive pneumonia Admitting imaging: CXR with asymmetric right hilar mass like enlargement. Cardiomegaly with pulmonary vascular congestion. Left basilar opacity. CTA chest: No PE. Large right hilar/upper lobe mass measuring 10 x 8 cm highly suspicious for primary bronchogenic malignancy. Right anterior diaphragmatic lymphadenopathy representing metastatic disease. 2.1 cm left upper lobe nodule abutting the mediastinum likely representing metastatic disease. Small right pleural effusion suggestive of malignant pleural effusion. CTAP: Negative for metastatic disease. 1.9 cm left adrenal nodule which was likely present on CT of September 25, 2022. Small right pleural effusion. CT head and CTA head/neck : No acute finding. BioFire negative S/P bronc 03/17 with worsening resp failure requiring bipap. Patient was weaned o ff of bipap and now on Oxymask. c/w Pain Mx. Wean O2 as able. Pt refusing BiPAP. Heme/Onc evaled - S/P Cycle 1 of carbo/etoposide (03/18/2024) [carboplatin day 1, etoposide day 1-3]. Cycle 2 after 21 days of cycle 1, due on 04/07/24 Repeat CXR on 03/31 showed pulm vasc congestion, suspected atelectasis, and pt is being weaned to NC 2 L, was given lasix 40 mg IV 04/01 and 04/02 Pulm eval noted. Bedside USS by pulm on 04/01 on ly shows minimal right pleural effusion with atelectasis of right lower lobe On 04/04: Discussed with Dr. Lyle: Plan is to do cycle 2 of treatment which will be --> Thursday. She will then get GCSF on with a plan to DC Thursday to rehab if able. SVC syndrome HTN Nonobstructive CAD Valvular heart disease Hold current diuretics. Pt OOB to chair Continue Amlodipine, Losartan, ASA Stroke like symptoms Myoclonic jerks Continue statin, ASA, and Eliquis Pancytopenia: Likely due to chemotherapy per ONC note received GCSF on 03/21 Dr. Lyle recommended additional dose of Neupogen 480mcg 03/30 and 03/31 Leukocytosis improving, today 10.64 Normocytic anemia : Chronic Anemia labs: folate/b12 normal; iron 37, ferritin 58.4. c/w iron PO Atrial fibrillation: Continue eliquis, amiodarone and lopressor. Ascending Aortic Aneurysm Dissection s/p Repair: CTM, BP control Melatonin HS to aid with sleep Continue gabapentin 300mg BID Dispo: VTE Prophylaxis: On Eliquis. Conditional code: per admitting chest compressions are acceptable, no intubation Peer to peer conducted 03/31, [facility] denied by insurance; per discussion with CM on 04/04, family planning on appeal Admission and Anticipated Discharge Date Admission Date: March 15, 2024 Supervising Physician Co-Signing Physician Notes Patient seen and examined Nurse practitioner discussed with Dr Lyle who recommends patient getting her 2nd cycle of chemo inpatient prior to dc to rehab CM aware Will keep patient till 2nd chemo within the week Agree with findings and plans as detailed by Radha MARTINEZ and take full responsibility Subjective Pt sitting in her bedside chair in no apparent distress. She does state that she feels tired and weak. We discussed her current treatment plans and logistical challenges associated with discharge to rehab and obtaining next cycle of chemotherapy I discussed with Dr. Lyle and the patient on 04/04: Plan is to do cycle 2 of treatment which will be --> Thursday. She will then get GCSF on with a plan to DC Wednesday 04/11 to rehab if able. Goal to continue to wean O2 as able. Case management aware; per discussion plan for family appeal for INS coverage to [facility]. Review of Systems Review of Systems: Neuro: (-) Falls, trauma, slurred speech HEENT: (-) WRIGHT, dizziness, dysphagia, visual or auditory changes CV: (-) CP, palpitations, swelling Resp: (-) SOB GI: (-) appetite changes, N/V/D, bowel changes : (-) urinary changes Skin: (-) rashes Psych: (-) anxiety, depression Physical Exam Physical Exam: Neuro: AAOx4, PERRLA, no aphagia, memory changes, CNII-XII grossly intact HEENT: head normocephalic, moist mucus membranes CV: S1/S2, (-) M/G/R, (-) edema, cap refill < 3 seconds Resp: Lungs CTA in all noble. On 2L oxymask GI: Abdomen S/NT/ND, Ax4 bowel sounds, (-) CVA tenderness Musculoskeletal: 5/5 B/L UE strength, 5/5 B/L LE strength. No gait disturbance Skin: (-) rashes , (-) erythema. Psych: euthymic mood Results & Data Results & Data Vital Signs (Past 12 Hours) Vital Signs Temp Pulse Resp BP Pulse Ox O2 Del Method O2 Flow Rate 04/04/24 07:45 36.4 C L 69 16 122/66 99 Nasal Cannula 04/03/24 23:33 71 22 90 Oxymask 3 04/03/24 21:37 36.7 C 87 16 125/66 96 Room Air 2 Laboratory Results Short CBC 04/03/24 04/04/24 Range/Units 08:18 06:46 WBC 15.67 H 10.64 (4.8-10.8) K/ul Hgb 10.7 L 9.4 L (12.0-16.0) g/dl Hct 34.3 L 30.0 L (37.0-47.0) % Plt Count 214 203 (130-400) K/uL BMP 04/03/24 04/04/24 08:18 06:46 Sodium 141 140 Potassium 3.7 3.7 Chloride 93 L 95 L Carbon Dioxide 45 H* 42 H* BUN 19 18 Creatinine 0.60 0.68 Glucose 93 103 H Calcium 9.1 8.8
[2024-04-04] MEDS ORDERED: Nursing to Pharmacy Communication SCH (10:45)
[2024-04-04] MEDS: FLUTICASONE PROPIONATE NA SPR 16 GM BTL SCH (20:08)
[2024-04-05 08:07] LABS: Hematocrit (blood only) 32.4 % (37.0-47.0); Mean Corpuscular Hemoglobin 30.2 pg (25.0-34.0); Mean Corpuscular Hgb Conc 30.9 g/dL (32.0-36.0); Mean Corpuscular Volume 97.9 fL (80.0-100.0); Mean Platelet Volume 9.7 fL (9.4-12.4); Platelet Count 205 K/uL (130-400); RDW Coefficient of Variation 13.3 % (11.5-14.5); RDW Standard Deviation 46.5 fL (36.4-46.3); Red Blood Count 3.31 M/uL (4.20-5.40); White Blood Count 8.65 K/ul (4.8-10.8)
[2024-04-05 08:22] LABS: Calcium 8.9 mg/dl (8.6-10.3); Creatinine Clr Calc Pharmacy 65.4 ml/min; Est GFR (African American) 97.2 ml/min; Est GFR (Non-African American) 83.8 ml/min; Potassium 3.6 mmol/L (3.5-5.1)
--- NOTE | 2024-04-05 08:44 | Hospitalist Progress Note ---
Date of Service April 05, 2024 Assessment & Plan (1) Acute hypoxic respiratory failure: (2) Suspected malignant neoplasm of lung: (3) Myoclonic jerking: (4) Acute kidney injury: (5) Lymphadenopathy, mediastinal: (6) SVC obstruction: (7) Paroxysmal atrial fibrillation: (8) Hypokalemia: (9) Mild right ventricular systolic dysfunction: Plan 83-year-old lady with PMH of HFpEF, A-fib, thoracic aortic aneurysm, HTN, osteoporosis, inflamed seborrheic keratosis, major depressive disorder, tobacco use disorder, aortic valve replacement with bioprosthetic valve who presented to the ED with acute hypoxemic respiratory failure due to suspected lung malignancy and concern for metastatic disease. Acute hypoxic respiratory failure Metastatic Small Cell Carcinoma Large mediastinal mass Postobstructive pneumonia Admitting imaging: CXR with asymmetric right hilar mass like enlargement. Cardiomegaly with pulmonary vascular congestion. Left basilar opacity. CTA chest: No PE. Large right hilar/upper lobe mass measuring 10 x 8 cm highly suspicious for primary bronchogenic malignancy. Right anterior diaphragmatic lymphadenopathy representing metastatic disease. 2.1 cm left upper lobe nodule abutting the mediastinum likely representing metastatic disease. Small right pleural effusion suggestive of malignant pleural effusion. CTAP: Negative for metastatic disease. 1.9 cm left adrenal nodule which was likely present on CT of September 25, 2022. Small right pleural effusion. CT head and CTA head/neck : No acute finding. BioFire negative S/P bronc 03/17 with worsening resp failure requiring bipap. Patient was weaned o ff of bipap and now on Oxymask. c/w Pain Mx. Wean O2 as able. Pt refusing BiPAP. Heme/Onc evaled - S/P Cycle 1 of carbo/etoposide (03/18/2024) [carboplatin day 1, etoposide day 1-3]. Cycle 2 after 21 days of cycle 1, due on 04/07/24 Repeat CXR on 03/31 showed pulm vasc congestion, suspected atelectasis, and pt is being weaned to NC 2 L, was given lasix 40 mg IV 04/01 and 04/02 Pulm eval noted. Bedside USS by pulm on 04/01 on ly shows minimal right pleural effusion with atelectasis of right lower lobe On 04/04: Discussed with Dr. Lyle: Plan is to do cycle 2 of treatment which will be --> Thursday. She will then get GCSF on Thursday/Thursday with a plan to DC Thursday to rehab if able. SVC syndrome HTN Nonobstructive CAD Valvular heart disease Hold current diuretics. Pt OOB to chair and bathroom Continue Amlodipine, Losartan, ASA Stroke like symptoms Myoclonic jerks Continue statin, ASA, and Eliquis Pancytopenia: Likely due to chemotherapy per ONC note received GCSF on 03/21 Dr. Lyle recommended additional dose of Neupogen 480mcg 03/30 and 03/31 Leukocytosis improving, today 10.64 Normocytic anemia : Chronic Anemia labs: folate/b12 normal; iron 37, ferritin 58.4. c/w iron PO Atrial fibrillation: Continue eliquis, amiodarone and lopressor. Ascending Aortic Aneurysm Dissection s/p Repair: CTM, BP control Melatonin HS to aid with sleep Continue gabapentin 300mg BID Dispo: VTE Prophylaxis: On Eliquis. Conditional code: per admitting chest compressions are acceptable, no intubation Peer to peer conducted 03/31, [facility] denied by insurance; per discussion with CM on 04/04, family planning on appeal Admission and Anticipated Discharge Date Admission Date: March 15, 2024 Supervising Physician Co-Signing Physician Notes Patient seen and examined No new complaints Plan for second round of chemo from ->Sat then GCSF on prior to discharge to rehab Agree with findings and plans as detailed by Radha MARTINEZ and take full responsibility Subjective Pt sitting in her bedside chair in no apparent distress except stating she is cold and wanted a warm blanket She does state that she feels tired and weak. 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 We discussed her current treatment plans and logistical challenges associated with discharge to rehab and obtaining next cycle of chemotherapy I discussed with Dr. Lyle and the patient on 04/04: Plan is to do cycle 2 of treatment which will be --> Thursday. She will then get GCSF on Thursday/Thursday with a plan to DC Wednesday 04/11 to rehab if able. Case management aware; per discussion plan for family appeal for INS coverage to [facility]. Review of Systems Review of Systems: Neuro: (-) Falls, trauma, slurred speech HEENT: (-) WRIGHT, dizziness, dysphagia, visual or auditory changes CV: (-) CP, palpitations, swelling Resp: (-) SOB GI: (-) appetite changes, N/V/D, bowel changes : (-) urinary changes Skin: (-) rashes Psych: (-) anxiety, depression Physical Exam Physical Exam: Neuro: AAOx4, PERRLA, no aphagia, memory changes, CNII-XII grossly intact HEENT: head normocephalic, moist mucus membranes CV: S1/S2, (-) M/G/R, (-) edema, cap refill < 3 seconds Resp: Lungs CTA in all noble. On 2L oxymask; improving GI: Abdomen S/NT/ND, Ax4 bowel sounds, (-) CVA tenderness Musculoskeletal: 5/5 B/L UE strength, 5/5 B/L LE strength. No gait disturbance Skin: (-) rashes , (-) erythema. Psych: euthymic mood Results & Data Results & Data Vital Signs (Past 12 Hours) Vital Signs Temp Pulse Resp BP Pulse Ox O2 Del Method O2 Flow Rate 04/05/24 07:17 36.8 C 67 16 120/67 99 Oxymask 2 04/04/24 22:40 63 19 98 Oxymask 2 04/04/24 22:04 Oxymask 2 Laboratory Results Short CBC 04/05/24 Range/Units 07:20 WBC 8.65 (4.8-10.8) K/ul Hgb 10.0 L (12.0-16.0) g/dl Hct 32.4 L (37.0-47.0) % Plt Count 205 (130-400) K/uL BMP 04/05/24 07:20 Sodium 141 Potassium 3.6 Chloride 97 L Carbon Dioxide 40 H BUN 14 Creatinine 0.61 Glucose 99 Calcium 8.9
[2024-04-05] MEDS: ACETAMINOPHEN 500 MG TAB PO PRN (22:32)
--- NOTE | 2024-04-06 08:20 | Hospitalist Progress Note ---
Date of Service April 06, 2024 Assessment & Plan (1) Acute hypoxic respiratory failure: (2) Suspected malignant neoplasm of lung: (3) Myoclonic jerking: (4) Acute kidney injury: (5) Lymphadenopathy, mediastinal: (6) SVC obstruction: (7) Paroxysmal atrial fibrillation: (8) Hypokalemia: (9) Mild right ventricular systolic dysfunction: Plan 83-year-old lady with PMH of HFpEF, A-fib, thoracic aortic aneurysm, HTN, osteoporosis, inflamed seborrheic keratosis, major depressive disorder, tobacco use disorder, aortic valve replacement with bioprosthetic valve who presented to the ED with acute hypoxemic respiratory failure due to suspected lung malignancy and concern for metastatic disease. Acute hypoxic respiratory failure Metastatic Small Cell Carcinoma Large mediastinal mass Postobstructive pneumonia Acute Admitting imaging: CXR with asymmetric right hilar mass like enlargement. Cardiomegaly with pulmonary vascular congestion. Left basilar opacity. CTA chest: No PE. Large right hilar/upper lobe mass measuring 10 x 8 cm highly suspicious for primary bronchogenic malignancy. Right anterior diaphragmatic lymphadenopathy representing metastatic disease. 2.1 cm left upper lobe nodule abutting the mediastinum likely representing metastatic disease. Small right pleural effusion suggestive of malignant pleural effusion. CTAP: Negative for metastatic disease. 1.9 cm left adrenal nodule which was likely present on CT of September 25, 2022. Small right pleural effusion. CT head and CTA head/neck : No acute finding. BioFire negative S/P bronc 03/17 with worsening resp failure requiring bipap. Patient was weaned off of bipap and now on Oxymask. Heme/Onc evaled - S/P Cycle 1 of carbo/etoposide (03/18/2024) [carboplatin day 1, etoposide day 1-3]. Cycle 2 after 21 days of cycle 1, due on 04/07/24 On 04/04: Discussed with Dr. Lyle: Plan is to do cycle 2 of treatment which will be --> Thursday. She will then get GCSF on Thursday/Thursday with a plan to DC Thursday to rehab if able. Pleural effusions: Acute Admitting imaging: CXR with asymmetric right hilar mass like enlargement. Cardiomegaly with pulmonary vascular congestion. Left basilar opacity. Repeat CXR on 03/31 showed pulm vasc congestion, suspected atelectasis, and pt is being weaned to NC 2 L, was given lasix 40 mg IV 04/01 and 04/02 04/06: Cardiomegaly with pulmonary vascular congestion and unchanged right pleural effusion. Administer Lasix 10 mg IV x2; total of 20 mg today. Takes Bumex twice weekly at home Lasix 40 mg IV order on hold I/O ordered Check CMP and Mg+ in AM due to Lasix administration; Repeat CXR ordered for AM Patient does have R >L LE edema give history of history of anle fractures SVC syndrome HTN Nonobstructive CAD Valvular heart disease Hold current diuretics. Pt OOB to chair and bathroom Continue Amlodipine, Losartan, ASA Stroke like symptoms Myoclonic jerks Continue statin, ASA, and Eliquis Pancytopenia: Likely due to chemotherapy per ONC note received GCSF on 03/21 Dr. Lyle recommended additional dose of Neupogen 480mcg 03/30 and 03/31 Leukocytosis improving, today 10.64 Normocytic anemia : Chronic Anemia labs: folate/b12 normal; iron 37, ferritin 58.4. c/w iron PO Atrial fibrillation: Continue Eliquis, amiodarone and lopressor. Ascending Aortic Aneurysm Dissection s/p Repair: CTM, BP control Melatonin HS to aid with sleep Continue gabapentin 300mg BID Dispo: VTE Prophylaxis: On Eliquis. Conditional code: per admitting chest compressions are acceptable, no intubation Peer to peer conducted 03/31, [facility] denied by insurance; per discussion with CM on 04/04, family planning on appeal Pt is accepted at [facility] for tentative DC Thursday I spent a total of 54 minutes coordinating, documenting, and providing care for this patient excluding time spent in the performance of separately billed services. All of the aforementioned completed while collaborating with the assigned attending physician for a full treatment plan. Please see their addendum for further details. Admission and Anticipated Discharge Date Admission Date: March 15, 2024 Supervising Physician Co-Signing Physician Notes delayed entry date of service noted above Attending Addendum: Case reviewed with the advanced practitioner. I have reviewed the advanced practitioner's documentation on the date of service referenced in note, and I agree with, and take responsibility for the plan of care. please refer to her notes for full details Nishant Colindres MD Subjective Patient sitting in bedside chair in no apparent distress. Patient states that she is more winded with ambulation to the bathroom and has a hard time catching her breath Trace lower extremity edema; R greater than left due to chronic swelling status post multiple ankle fractures Patient denies headache, dizziness, fevers, chills, chest pain, palpitations. Reports adequate appetite. Review of Systems Review of Systems: Neuro: (-) Falls, trauma, slurred speech HEENT: (-) WRIGHT, dizziness, dysphagia, visual or auditory changes CV: (-) CP, palpitations, swelling Resp: (+) SOB GI: (-) appetite changes, N/V/D, bowel changes : (-) urinary changes Skin: (-) rashes Psych: (-) anxiety, depression Physical Exam Physical Exam: Neuro: AAOx4, PERRLA, no aphagia, memory changes, CNII-XII grossly intact HEENT: head normocephalic, moist mucus membranes CV: S1/S2, (-) M/G/R, (-) edema, cap refill < 3 seconds Resp: Lungs CTA in all noble. On 2L oxymask; Feels more winded today GI: Abdomen S/NT/ND, Ax4 bowel sounds, (-) CVA tenderness Musculoskeletal: 5/5 B/L UE strength, 5/5 B/L LE strength. No gait disturbance; Uses walker. Skin: (-) rashes , (-) erythema. Psych: euthymic mood Results & Data Results & Data Vital Signs (Past 12 Hours) Vital Signs Temp Pulse Pulse Resp BP Pulse Ox O2 Del Method 04/06/24 07:12 36.4 C L 68 17 159/71 H 99 Oxymask 04/05/24 22:51 60 16 98 Oxymask 04/05/24 20:35 Oxymask 04/05/24 20:28 36.7 C 76 16 129/61 98 Oxymask O2 Flow Rate 04/06/24 07:12 2.5 04/05/24 22:51 2 04/05/24 20:35 2 04/05/24 20:28 2 Laboratory Results Short CBC 04/06/24 Range/Units 08:52 WBC 7.87 (4.8-10.8) K/ul Hgb 10.5 L (12.0-16.0) g/dl Hct 33.6 L (37.0-47.0) % Plt Count 217 (130-400) K/uL BMP 04/06/24 08:52 Sodium 141 Potassium 3.6 Chloride 97 L Carbon Dioxide 40 H BUN 17 Creatinine 0.69 Glucose 139 H Calcium 9.0
[2024-04-06 09:27] LABS: Hematocrit (blood only) 33.6 % (37.0-47.0); Hemoglobin 10.5 g/dl (12.0-16.0); Mean Corpuscular Hemoglobin 30.8 pg (25.0-34.0); Mean Corpuscular Hgb Conc 31.3 g/dL (32.0-36.0); Mean Corpuscular Volume 98.5 fL (80.0-100.0); Mean Platelet Volume 9.6 fL (9.4-12.4); Platelet Count 217 K/uL (130-400); RDW Coefficient of Variation 13.5 % (11.5-14.5); RDW Standard Deviation 47.6 fL (36.4-46.3); Red Blood Count 3.41 M/uL (4.20-5.40); White Blood Count 7.87 K/ul (4.8-10.8)
[2024-04-06 09:42] LABS: BUN Creatinine Ratio 24.6 (10-20); Creatinine Clr Calc Pharmacy 57.8 ml/min; Est GFR (African American) 93.3 ml/min; Est GFR (Non-African American) 80.5 ml/min; Potassium 3.6 mmol/L (3.5-5.1)
[2024-04-06] MEDS: FUROSEMIDE INJ 20 MG/2 ML VIAL IV ONE ×2 (13:53→17:47)
--- NOTE | 2024-04-06 14:28 | XRay Report ---
XR chest 1V portable HISTORY: 83 years-old Female SOB acute shortness of breath COMPARISON: Chest radiograph 04/02/2024, CTA chest 03/15/2024. TECHNIQUE: AP view the chest FINDINGS: Cardiac silhouette is enlarged. Median sternotomy. Layering right pleural effusion with right basilar consolidation redemonstrated, mildly improved. Edema. Pulmonary vascular congestion with interstitia l coarsening. Mediastinal mass better seen on prior chest CT. IMPRESSION: 1. Cardiomegaly with pulmonary vascular congestion. 2. Unchanged right pleural effusion with mildly improved right basilar opacities. 3. Mediastinal mass is better assessed on prior chest CT. ACT 112: Negative or not required by law. The above report was generated using voice recognition software. It may contain grammatical, syntax o r spelling errors. Electronically signed by: Jordin Vela M.D. 04/06/2024 2:27 PM
--- NOTE | 2024-04-07 07:32 | XRay Report ---
XR chest 1V portable CLINICAL HISTORY: SOB/small cell lung CA/pleural effusions COMPARISON STUDY: Chest CT March 15, 2024. Chest radiograph April 06, 2024. FINDINGS: There is no pneumothorax. Small right and trace left pleural effusions are similar to prior exam. Cardiomediastinal silhouette is stable. The mediastinal mass has decreased in size since chest CT of March 15, 2024. Slight asymmetric right hilar enlargement. There is pulmonary vascular congestio n. This is unchanged. No consolidation is identified to suggest pneumonia. IMPRESSION: 1. Pulmonary vascular congestion, similar to prior exam. 2. No change in small right and trace left pleural effusions. ACT 112: Negative or not required by law. Electronically signed by: Nam Delgado M.D. 04/07/2024 7:30 AM
[2024-04-07 08:39] LABS: Hematocrit (blood only) 34.3 % (37.0-47.0); Hemoglobin 11.1 g/dl (12.0-16.0); Mean Corpuscular Hemoglobin 31.2 pg (25.0-34.0); Mean Corpuscular Hgb Conc 32.4 g/dL (32.0-36.0); Mean Corpuscular Volume 96.3 fL (80.0-100.0); Mean Platelet Volume 9.8 fL (9.4-12.4); Platelet Count 209 K/uL (130-400); RDW Coefficient of Variation 13.6 % (11.5-14.5); RDW Standard Deviation 45.9 fL (36.4-46.3); Red Blood Count 3.56 M/uL (4.20-5.40); White Blood Count 8.47 K/ul (4.8-10.8)
[2024-04-07 09:10] LABS: Albumin Globulin Ratio 1.3 (0.9-2); Albumin Level 3.6 gm/dl (3.4-5.0); BUN Creatinine Ratio 25.3 (10-20); Bilirubin,Total 0.3 mg/dl (0.2-1.0); Creatinine Clr Calc Pharmacy 50.5 ml/min; Est GFR (African American) 80.2 ml/min; Est GFR (Non-African American) 69.2 ml/min; Globulin 2.8 gm/dl (2.5-4.0); Magnesium 2.3 mg/dl (1.7-2.4); Potassium 3.3 mmol/L (3.5-5.1); Total Protein 6.4 gm/dl (6.0-8.3)
[2024-04-07] MEDS: dexAMETHasone 12 MG, PALONOSETRON 0.25 MG in SODIUM CHLORIDE 0.9% 50 ML IV ONE (10:46)
[2024-04-07] MEDS: FOSAPREPITANT DIMEGLUMINE 150 MG in SODIUM CHLORIDE 0.9% 145 ML IV ONE (12:21)
[2024-04-07] MEDS: CARBOplatin 350 MG in SODIUM CHLORIDE 0.9% 250 ML IV SCH (13:45)
[2024-04-07] MEDS: ETOPOSIDE 140 MG in SODIUM CHLORIDE 0.9% 500 ML IV SCH (14:51)
--- NOTE | 2024-04-07 15:13 | Hospitalist Progress Note ---
<Statement entered by Nishant Colindres MD - 04/20/24 17:32> delayed entry date of service noted above Attending Addendum: Case reviewed with the advanced practitioner. I have reviewed the advanced practitioner's documentation on the date of service referenced in note, and I agree with, and take responsibility for the plan of care. please refer to her notes for full details Nishant Colindres MD Date of Service April 07, 2024 Assessment & Plan (1) Acute hypoxic respiratory failure: (2) Suspected malignant neoplasm of lung: (3) Myoclonic jerking: (4) Acute kidney injury: (5) Lymphadenopathy, mediastinal: (6) SVC obstruction: (7) Paroxysmal atrial fibrillation: (8) Hypokalemia: (9) Mild right ventricular systolic dysfunction: Plan 83-year-old lady with PMH of HFpEF, A-fib, thoracic aortic aneurysm, HTN, osteoporosis, inflamed seborrheic keratosis, major depressive disorder, tobacco use disorder, aortic valve replacement with bioprosthetic valve who presented to the ED with acute hypoxemic respiratory failure due to suspected lung malignancy and concern for metastatic disease. Acute hypoxic respiratory failure Metastatic Small Cell Carcinoma Large mediastinal mass Postobstructive pneumonia Acute Admitting imaging: CXR with asymmetric right hilar mass like enlargement. Cardiomegaly with pulmonary vascular congestion. Left basilar opacity. CTA chest: No PE. Large right hilar/upper lobe mass measuring 10 x 8 cm highly suspicious for primary bronchogenic malignancy. Right anterior diaphragmatic lymphadenopathy representing metastatic disease. 2.1 cm left upper lobe nodule abutting the mediastinum likely representing metastatic disease. Small right pleural effusion suggestive of malignant pleural effusion. CTAP: Negative for metastatic disease. 1.9 cm left adrenal nodule which was likely present on CT of September 25, 2022. Small right pleural effusion. CT head and CTA head/neck : No acute finding. BioFire negative S/P bronc 03/17 with worsening resp failure requiring bipap. Patient was weaned off of bipap and now on Oxymask. Heme/Onc evaled - S/P Cycle 1 of carbo/etoposide (03/18/2024) [carboplatin day 1, etoposide day 1-3]. Cycle 2 after 21 days of cycle 1, due on 04/07/24 cycle 2 of treatment starting today, --> Thursday. She will then get GCSF on Thursday/Thursday with a plan to DC Thursday to rehab if able. Discussed with Dr. Lyle regarding placement of mediport, will consult general surg for eval as pt currently with US guided line Discussed with General surgery who will start working her in the outpatient schedule for port placement as earliest they could is thursday, which is tentative d/c date Pleural effusions: Acute Admitting imaging: CXR with asymmetric right hilar mass like enlargement. Cardiomegaly with pulmonary vascular congestion. Left basilar opacity. Repeat CXR on 03/31 showed pulm vasc congestion, suspected atelectasis, and pt is being weaned to NC 2 L, was given lasix 40 mg IV 04/01 and 04/02 04/06: Cardiomegaly with pulmonary vascular congestion and unchanged right pleural effusion. Pt with recent administration of IV lasix She was seen and eval by pulm who feels hypoxia in setting of compressive atelectasis due to mass, pleural effusions minimal Takes Bumex twice weekly at home I/O ordered Patient does have R >L LE edema give history of history of anle fractures SVC syndrome HTN Nonobstructive CAD Valvular heart disease Hold current diuretics. Pt OOB to chair and bathroom Continue Amlodipine, Losartan, ASA Stroke like symptoms Myoclonic jerks Continue statin, ASA, and Eliquis Pancytopenia: Likely due to chemotherapy per ONC note received GCSF on 03/21 Dr. Lyle recommended additional dose of Neupogen 480mcg 03/30 and 03/31 Leukocytosis improving, today 10.64 Normocytic anemia : Chronic Anemia labs: folate/b12 normal; iron 37, ferritin 58.4. c/w iron PO Atrial fibrillation: Continue Eliquis, amiodarone and lopressor. Ascending Aortic Aneurysm Dissection s/p Repair: CTM, BP control Melatonin HS to aid with sleep Continue gabapentin 300mg BID Dispo: VTE Prophylaxis: On Eliquis. Conditional code: per admitting chest compressions are acceptable, no intubation Peer to peer conducted 03/31, [facility] denied by insurance; per discussion with CM on 04/04, family planning on appeal Pt is accepted at [facility] for tentative DC Thursday I spent a total of 46 minutes coordinating, documenting, and providing care for this patient excluding time spent in the performance of separately billed services. All of the aforementioned completed while collaborating with the assigned attending physician for a full treatment plan. Please see their adde ndum for further details. Admission and Anticipated Discharge Date Admission Date: March 15, 2024 Subjective Pt was seen and examined in room 356-2. Follow up Acute hypoxic resp failure. She is frustrated regarding all the IV sticks she is getting. She is starting cycle 2 of chemo @ 10:00 a.m. Denies pain, f/c/s, chest pain, sob, n/v/d. She is moving her bowels. Review of Systems Review of Systems: All systems reviewed & are unremarkable except as noted in HPI & below Physical Exam Physical Exam: Gen: WD/WN, elderly, F, NAD, A&O x3 HEENT: Normocephalic, atraumatic, conjunctivae moist, sclerae anicteric, mucous membranes moist. Lung: on oxygen via face mask, Clear to Auscultation bilaterally, no wheezes, scant RLL rales Heart: Regular rate, regular rhythm, no murmurs, rubs, or gallops Abdomen: Soft, NT, ND +BS x 4 Extremities:RLE trace edema, ankle brace Skin: Warm, no rash, negative turgor. Results & Data Results & Data Vital Signs (Past 12 Hours) Vital Signs Temp Pulse Pulse Resp BP Pulse Ox O2 Del Method 04/07/24 08:06 75 18 98 Oxymask 04/07/24 08:00 Oxymask 04/07/24 08:00 36.8 C 75 18 122/52 L 96 Oxymask O2 Flow Rate 04/07/24 08:06 2 04/07/24 08:00 2.5 04/07/24 08:00 2 Laboratory Results Short CBC 04/07/24 Range/Units 07:52 WBC 8.47 (4.8-10.8) K/ul Hgb 11.1 L (12.0-16.0) g/dl Hct 34.3 L (37.0-47.0) % Plt Count 209 (130-400) K/uL BMP 04/07/24 07:52 Sodium 141 Potassium 3.3 L Chloride 94 L Carbon Dioxide 43 H* BUN 20 Creatinine 0.79 Glucose 93 Calcium 9.0 Liver Function 04/07/24 Range/Units 07:52 Total Bilirubin 0.3 (0.2-1.0) mg/dl AST 17 (13-39) U/L ALT 9 (7-52) U/L Alkaline Phosphatase 56 (34-104) U/L Albumin 3.6 (3.4-5.0) gm/dl Medications Administered Current Inpatient Medications Acetaminophen (Acetaminophen 500 Mg Tab) 1,000 mg PO TID PRN PRN Reason: Pain or Fever Stop: 04/14/24 20:33 Last Admin: 04/07/24 00:23 Dose: 1,000 mg Al Hydrox/Mg Hydrox/Simethicone (Aluminum/Magnesium Susp 30 Ml Udc) 15 ml PO Q4H PRN PRN Reason: Dyspepsia Stop: 04/14/24 20:33 Albuterol (Albuterol Hfa 8 Gm Inhaler) 2 puffs INH Q4 PRN PRN Reason: shortness of breath or wheezin Stop: 04/14/24 20:33 Last Admin: 04/07/24 08:06 Dose: 2 puffs Amiodarone HCl (Amiodarone 200 Mg Tab) 200 mg PO DAILY [facility] Stop: 04/15/24 08:59 Last Admin: 04/07/24 08:12 Dose: 200 mg Amlodipine Besylate (Amlodipine Besylate 5 Mg Tab) 2.5 mg PO QAM [facility] Stop: 04/21/24 08:59 Last Admin: 04/07/24 08:12 Dose: 2.5 mg Apixaban (Apixaban 5 Mg Tablet) 5 mg PO BID [facility] Stop: 04/17/24 20:59 Last Admin: 04/07/24 08:11 Dose: 5 mg Artificial Tears (Artificial Tears) 1 drops OPB QID PRN PRN Reason: Dryness Stop: 04/16/24 14:19 Aspirin (Aspirin 81 Mg Ectab) 81 mg PO QAM [facility] Stop: 04/18/24 08:59 Last Admin: 04/07/24 08:13 Dose: 81 mg Atorvastatin Calcium (Atorvastatin 40 Mg Tab) 40 mg PO HS [facility] Stop: 04/16/24 20:59 Last Admin: 04/06/24 20:26 Dose: 40 mg Buspirone HCl (Buspirone 5 Mg Tab) 10 mg PO HS [facility] Stop: 04/14/24 20:59 Last Admin: 04/06/24 20:26 Dose: 10 mg Dexamethasone (Dexamethasone 4 Mg Tab) 8 mg PO DAILY@1145 [facility] Stop: 04/09/24 11:46 Docusate Sodium (Docusate Sodium 100 Mg Cap) 100 mg PO BID [facility] Stop: 04/28/24 20:59 Last Admin: 04/07/24 08:11 Dose: 100 mg Ferrous Sulfate (Ferrous Sulfate 325 Mg Tab) 325 mg PO QAM [facility] Stop: 04/24/24 08:59 Last Admin: 04/07/24 08:13 Dose: 325 mg Filgrastim (Filgrastim 480 Mcg/1.6 Ml Vial) 480 mcg SQ DAILY@1500 [facility] Stop: 04/11/24 15:01 Fluticasone Propionate (Fluticasone Propionate Na Spr 16 Gm Btl) 1 sprays NA HS [facility] Stop: 05/04/24 20:59 Last Admin: 04/06/24 20:28 Dose: 1 sprays Furosemide (Furosemide 40 Mg/4 Ml Vial) 40 mg IV QAM [facility] Stop: 05/02/24 08:59 Last Admin: 04/02/24 09:26 Dose: 40 mg Gabapentin (Gabapentin 300 Mg Cap) 300 mg PO BID [facility] Stop: 04/14/24 20:59 Last Admin: 04/07/24 08:11 Dose: 300 mg Hydralazine HCl (Hydralazine Hcl 20 Mg/Ml Vial) 5 mg IV Q4H PRN PRN Reason: Systolic BP >175 Stop: 04/20/24 14:41 Hydroxyzine HCl (Hydroxyzine Hcl 10 Mg Tab) 10 mg PO QID PRN PRN Reason: Anxiety Stop: 04/28/24 05:03 Last Admin: 04/07/24 09:40 Dose: 10 mg Ondansetron HCl 6 mg/ Dextrose 53 mls @ 200 mls/hr IV Q6H PRN PRN Reason: Nausea And Vomiting Stop: 04/20/24 08:17 Prochlorperazine 5 mg/ Syringe 5 mls @ 5 mls/min IV Q6H PRN PRN Reason: Nausea And Vomiting Stop: 04/20/24 14:39 Palonosetron 0.25 mg/ Syringe 5 mls @ 10 mls/min IV DAILY PRN PRN Reason: nausea, vomiting Stop: 04/20/24 08:59 Etoposide 140 mg/ Sodium (Chloride) 507 mls @ 507 mls/hr IV TODAY@1215 [facility]; Protocol Stop: 04/09/24 13:14 Last Infusion: 04/07/24 14:56 Dose: 500 mls/hr Palonosetron 0.25 mg/ Syringe 5 mls @ 10 mls/min IV TODAY@1145 [facility] Stop: 04/09/24 11:46 Loratadine (Loratadine 10 Mg Tab) 10 mg PO QAM [facility] Stop: 04/28/24 14:44 Last Admin: 04/07/24 08:14 Dose: 10 mg Lorazepam (Lorazepam 0.5 Mg Tab) 0.5 mg PO Q6 PRN PRN Reason: Anxiety Stop: 04/14/24 20:33 Last Admin: 03/20/24 00:31 Dose: 0.5 mg Losartan Potassium (Losartan Potassium 50 Mg Tab) 100 mg PO [facility] Stop: 04/14/24 20:59 Last Admin: 04/06/24 20:27 Dose: 100 mg Magnesium Hydroxide (Magnesium Hydroxide Susp 30 Ml Udc) 30 ml PO Q12H PRN PRN Reason: Constipation Stop: 04/14/24 20:33 Last Admin: 04/06/24 18:47 Dose: 30 ml Melatonin (Melatonin 3 Mg Tab) 3 mg PO [facility] Stop: 05/03/24 20:59 Last Admin: 04/06/24 21:54 Dose: Not Given Metoprolol Tartrate (Metoprolol Tartrate 50 Mg Tab) 50 mg PO BID [facility] Stop: 04/14/24 20:59 Last Admin: 04/07/24 08:11 Dose: 50 mg Miconazole Nitrate (Miconazole Nitrate 2% Cr 30 Gm Tube) 1 appln EXT BID [facility] Stop: 04/26/24 20:59 Last Admin: 04/07/24 08:14 Dose: 1 appln Petrolatum (Butt Paste (Zinc Oxide 16%) 171 Appln/57 Gm Jar) 1 appln EXT BID [facility] Stop: 04/26/24 20:59 Last Admin: 04/07/24 08:14 Dose: Not Given Polyethylene Glycol (Polyethylene (Miralax) 17 Gm Pack) 17 gm PO DAILY PRN PRN Reason: Constipation Stop: 04/26/24 14:39 Sodium Chloride (Sodium Chloride 0.65% Na Soln 45 Ml ([place])) 2 sprays NA TID PRN PRN Reason: Nasal Congestion Stop: 04/27/24 22:01 Last Admin: 03/28/24 22:58 Dose: 2 sprays
--- NOTE | 2024-04-07 17:19 | Hematology/Oncology Prog Note ---
Date of Service April 07, 2024 Assessment & Plan (1) Small cell lung cancer: Plan Labs reviewed and adequate for treatment today. Plan to proceed with cycle 2, day 1 of carboplatin/etoposide today. Admission and Anticipated Discharge Date Admission Date: March 15, 2024 Subjective No new complaints. Results & Data Vital Signs (Past 12 Hours) Vital Signs Temp Pulse Pulse Resp BP Pulse Ox O2 Del Method 04/07/24 16:00 36.4 C L 66 16 100/52 L 99 Oxymask 04/07/24 08:06 75 18 98 Oxymask 04/07/24 08:00 Oxymask 04/07/24 08:00 36.8 C 75 18 122/52 L 96 Oxymask O2 Flow Rate 04/07/24 16:00 4 04/07/24 08:06 2 04/07/24 08:00 2.5 04/07/24 08:00 2
[2024-04-07] MEDS: POTASSIUM CHLORIDE CRTAB 20 MEQ TABCR PO STA (18:29)
[2024-04-08 08:23] LABS: Albumin Globulin Ratio 1.3 (0.9-2); Albumin Level 3.5 gm/dl (3.4-5.0); BUN Creatinine Ratio 40.7 (10-20); Bilirubin,Total 0.3 mg/dl (0.2-1.0); Calcium 8.8 mg/dl (8.6-10.3); Creatinine Clr Calc Pharmacy 67.6 ml/min; Est GFR (African American) 98.2 ml/min; Est GFR (Non-African American) 84.8 ml/min; Globulin 2.7 gm/dl (2.5-4.0); Potassium 4.2 mmol/L (3.5-5.1); Total Protein 6.2 gm/dl (6.0-8.3)
[2024-04-08 09:23] LABS: Basophils # (auto) 0.05 K/uL (0.00-0.20); Basophils % (auto) 0.3 %; Hematocrit (blood only) 32.3 % (37.0-47.0); Hemoglobin 10.3 g/dl (12.0-16.0); Immature Granulocytes # (auto) 0.66 K/uL (0.01-0.20); Immature Granulocytes % (auto) 4.5 %; Lymphocytes # (auto) 1.33 K/uL (1.20-3.40); Mean Corpuscular Hemoglobin 30.7 pg (25.0-34.0); Mean Corpuscular Hgb Conc 31.9 g/dL (32.0-36.0); Mean Corpuscular Volume 96.4 fL (80.0-100.0); Mean Platelet Volume 9.5 fL (9.4-12.4); Monocytes # (auto) 0.99 K/uL (0.11-0.59); Monocytes % (auto) 6.7 %; Neutrophils # (auto) 11.72 K/uL (1.40-6.50); Neutrophils % (auto) 79.5 %; Platelet Count 201 K/uL (130-400); RDW Coefficient of Variation 13.4 % (11.5-14.5); RDW Standard Deviation 44.9 fL (36.4-46.3); Red Blood Count 3.35 M/uL (4.20-5.40); White Blood Count 14.75 K/ul (4.8-10.8)
--- NOTE | 2024-04-08 09:54 | Communication Note ---
Date of Service: April 08, 2024 Patient is schedule for aport placement with Dr. Rankin on 04/18/2024 as outpatient. She will need to hold Eliquis 3 days prior. [facility] general surgery department will call her next week to review preoperative instructions. Updated hospitalist Abby Jackson PA-C.
[2024-04-08] MEDS: ALBUTEROL 0.083% NEBU SOLN 3 ML VIAL NEB SCH (10:35)
[2024-04-08] MEDS ORDERED: Nursing to Pharmacy Communication SCH (11:15)
[2024-04-08] MEDS: dexAMETHasone 4 MG TAB PO SCH (11:22)
[2024-04-08] MEDS: POLYETHYLENE (MIRALAX) 17 GM PACK PO SCH ×2 (11:23→20:27)
[2024-04-08] MEDS: GABAPENTIN 300 MG CAP PO SCH (13:48)
--- NOTE | 2024-04-08 13:56 | Hospitalist Progress Note ---
Date of Service April 08, 2024 Assessment & Plan (1) Acute hypoxic respiratory failure: (2) Suspected malignant neoplasm of lung: (3) Myoclonic jerking: (4) Acute kidney injury: (5) Lymphadenopathy, mediastinal: (6) SVC obstruction: (7) Paroxysmal atrial fibrillation: (8) Hypokalemia: (9) Mild right ventricular systolic dysfunction: Plan 83-year-old lady with PMH of HFpEF, A-fib, thoracic aortic aneurysm, HTN, osteoporosis, inflamed seborrheic keratosis, major depressive disorder, tobacco use disorder, aortic valve replacement with bioprosthetic valve who presented to the ED with acute hypoxemic respiratory failure due to suspected lung malignancy and concern for metastatic disease. Acute hypoxic respiratory failure Metastatic Small Cell Carcinoma Large mediastinal mass Postobstructive pneumonia Acute Admitting imaging: CXR with asymmetric right hilar mass like enlargement. Cardiomegaly with pulmonary vascular congestion. Left basilar opacity. CTA chest: No PE. Large right hilar/upper lobe mass measuring 10 x 8 cm highly suspicious for primary bronchogenic malignancy. Right anterior diaphragmatic lymphadenopathy representing metastatic disease. 2.1 cm left upper lobe nodule abutting the mediastinum likely representing metastatic disease. Small right pleural effusion suggestive of malignant pleural effusion. CTAP: Negative for metastatic disease. 1.9 cm left adrenal nodule which was likely present on CT of September 25, 2022. Small right pleural effusion. CT head and CTA head/neck : No acute finding. BioFire negative S/P bronc 03/17 with worsening resp failure requiring bipap. Patient was weaned off of bipap and now on Oxymask. Heme/Onc evaled - S/P Cycle 1 of carbo/etoposide (03/18/2024) [carboplatin day 1, etoposide day 1-3]. Cycle 2 after 21 days of cycle 1, due on 04/07/24 cycle 2 of treatment starting today, --> Thursday. She will then get GCSF on Thursday/Thursday with a plan to DC Thursday to rehab if able. Discussed with Dr. Lyle regarding placement of mediport, will consult general surg for eval as pt currently with US guided line Discussed with General surgery who has scheduled her for a mediport on April 18. She will need to contact hospital on 04/15 to obtain arrival time for thursday. She must hold Eliquis starting Thursday a.m. Pleural effusions: Acute Admitting imaging: CXR with asymmetric right hilar mass like enlargement. Cardiomegaly with pulmonary vascular congestion. Left basilar opacity. Repeat CXR on 03/31 showed pulm vasc congestion, suspected atelectasis, and pt is being weaned to NC 2 L, was given lasix 40 mg IV 04/01 and 04/02 04/06: Cardiomegaly with pulmonary vascular congestion and unchanged right pleural effusion. Pt with recent administration of IV lasix She was seen and eval by pulm who feels hypoxia in setting of compressive atelectasis due to mass, pleural effusions minimal Takes Bumex twice weekly at home I/O ordered Patient does have R >L LE edema give history of history of anle fractures will schedule nebs at this makes pt feel better SVC syndrome HTN Nonobstructive CAD Valvular heart disease Hold current diuretics. Pt OOB to chair and bathroom Continue Amlodipine, Losartan, ASA Stroke like symptoms Myoclonic jerks Continue statin, ASA, and Eliquis Pancytopenia: Likely due to chemotherapy per ONC note received GCSF on 03/21 Dr. Lyle recommended additional dose of Neupogen 480mcg 03/30 and 03/31 pt will receive GCSF post chemo Normocytic anemia : Chronic Anemia labs: folate/b12 normal; iron 37, ferritin 58.4. c/w iron PO Atrial fibrillation: Continue Eliquis, amiodarone and lopressor. Ascending Aortic Aneurysm Dissection s/p Repair: CTM, BP control Melatonin HS to aid with sleep Continue gabapentin 300mg BID Dispo: VTE Prophylaxis: On Eliquis. Conditional code: per admitting chest compressions are acceptable, no intubation Peer to peer conducted 03/31, [facility] denied by insurance; per discussion with CM on 04/04, family planning on appeal Pt is accepted at [facility] for tentative DC Thursday I spent a total of 50 minutes coordinating, documenting, and providing care for this patient excluding time spent in the performance of separately billed services. All of the aforementioned completed while collaborating with the assigned attending physician for a full treatment plan. Please see their addendum for further details. Updated pt's son Timur. Admission and Anticipated Discharge Date Admission Date: March 15, 2024 Subjective Pt was seen and examined in room 356-2. Follow up Acute hypoxic resp failure. She is getting day 2 of cycle 1 today. She denies f/c/s, chest pain, n/v/d. Overall appetite is decreased and everything tastes like metal. She is requesting routine nebulizer and increased gabapentin dose. Review of Systems Review of Systems: All systems reviewed & are unremarkable except as noted in HPI & below Physical Exam Physical Exam: Gen: WD/WN, elderly, F, NAD, A&O x3 HEENT: Normocephalic, atraumatic, conjunctivae moist, sclerae anicteric, mucous membranes moist. Lung: on oxygen via face mask, Clear to Auscultation bilaterally, no wheezes, Heart: Regular rate, regular rhythm, no murmurs, rubs, or gallops Abdomen: Soft, NT, ND +BS x 4 Extremities:RLE trace edema, ankle brace Skin: Warm, no rash, negative turgor. Results & Data Results & Data Vital Signs (Past 12 Hours) Vital Signs Temp Pulse Resp BP Pulse Ox O2 Del Method O2 Flow Rate 04/08/24 12:30 62 20 136/72 100 Oxymask 3 04/08/24 11:46 Oxymask 3 04/08/24 10:37 69 17 93 Oxymask 4 04/08/24 07:37 36.5 C 73 16 158/53 H 97 Oxymask 3 Laboratory Results Short CBC 04/08/24 04/08/24 Range/Units 07:26 09:03 WBC Cancelled 14.75 H Hgb Cancelled 10.3 L Hct Cancelled 32.3 L Plt Count Cancelled 201 BMP 04/08/24 07:26 Sodium 137 Potassium 4.2 D Chloride 99 Carbon Dioxide 33 H BUN 24 H Creatinine 0.59 L Glucose 128 H Calcium 8.8 Liver Function 04/08/24 Range/Units 07:26 Total Bilirubin 0.3 (0.2-1.0) mg/dl AST 16 (13-39) U/L ALT 11 (7-52) U/L Alkaline Phosphatase 51 (34-104) U/L Albumin 3.5 (3.4-5.0) gm/dl Medications Administered Current Inpatient Medications Acetaminophen (Acetaminophen 500 Mg Tab) 1,000 mg PO TID PRN PRN Reason: Pain or Fever Stop: 04/14/24 20:33 Last Admin: 04/07/24 23:20 Dose: 1,000 mg Al Hydrox/Mg Hydrox/Simethicone (Aluminum/Magnesium Susp 30 Ml Udc) 15 ml PO Q4H PRN PRN Reason: Dyspepsia Stop: 04/14/24 20:33 Albuterol (Albuterol Hfa 8 Gm Inhaler) 2 puffs INH Q4 PRN PRN Reason: shortness of breath or wheezin Stop: 04/14/24 20:33 Last Admin: 04/07/24 08:06 Dose: 2 puffs Albuterol (Albuterol 0.083% Nebu Soln 3 Ml Vial) 2.5 mg NEB QIDR [facility]; Protocol Stop: 05/08/24 09:54 Last Admin: 04/08/24 10:42 Dose: Not Given Amiodarone HCl (Amiodarone 200 Mg Tab) 200 mg PO DAILY [facility] Stop: 04/15/24 08:59 Last Admin: 04/08/24 09:12 Dose: 200 mg Amlodipine Besylate (Amlodipine Besylate 5 Mg Tab) 2.5 mg PO QAM [facility] Stop: 04/21/24 08:59 Last Admin: 04/08/24 09:13 Dose: 2.5 mg Apixaban (Apixaban 5 Mg Tablet) 5 mg PO BID [facility] Stop: 04/17/24 20:59 Last Admin: 04/08/24 09:11 Dose: 5 mg Artificial Tears (Artificial Tears) 1 drops OPB QID PRN PRN Reason: Dryness Stop: 04/16/24 14:19 Aspirin (A[facility]in 81 Mg Ectab) [facility] Stop: 04/18/24 08:59 Last Admin: 04/08/24 09:13 Dose: 81 mg Atorvastatin Calcium (Atorvastatin 40 Mg Tab) 40 mg PO HS [facility] Stop: 04/16/24 20:59 Last Admin: 04/07/24 21:34 Dose: 40 mg Buspirone HCl (Buspirone 5 Mg Tab) 10 mg PO HS [facility] Stop: 04/14/24 20:59 Last Admin: 04/07/24 21:34 Dose: 10 mg Dexamethasone (Dexamethasone 4 Mg Tab) 8 mg PO DAILY@1145 [facility] Stop: 04/09/24 11:46 Last Admin: 04/08/24 11:22 Dose: 8 mg Ferrous Sulfate (Ferrous Sulfate 325 Mg Tab) 325 mg PO QAM [facility] Stop: 04/24/24 08:59 Last Admin: 04/08/24 09:13 Dose: 325 mg Filgrastim (Filgrastim 480 Mcg/1.6 Ml Vial) 480 mcg SQ DAILY@1500 [facility] Stop: 04/11/24 15:01 Fluticasone Propionate (Fluticasone Propionate Na Spr 16 Gm Btl) 1 sprays NA HS [facility] Stop: 05/04/24 20:59 Last Admin: 04/07/24 21:35 Dose: 1 sprays Furosemide (Furosemide 40 Mg/4 Ml Vial) 40 mg IV QAM [facility] Stop: 05/02/24 08:59 Last Admin: 04/02/24 09:26 Dose: 40 mg Gabapentin (Gabapentin 600 Mg Tab) 600 mg PO DAILY@0900,1700 [facility] Stop: 05/08/24 16:59 Gabapentin (Gabapentin 300 Mg Cap) 300 mg PO DAILY@1200,2100 [facility] Stop: 05/08/24 11:59 Last Admin: 04/08/24 13:48 Dose: 300 mg Hydralazine HCl (Hydralazine Hcl 20 Mg/Ml Vial) 5 mg IV Q4H PRN PRN Reason: Systolic BP >175 Stop: 04/20/24 14:41 Hydroxyzine HCl (Hydroxyzine Hcl 10 Mg Tab) 10 mg PO QID PRN PRN Reason: Anxiety Stop: 04/28/24 05:03 Last Admin: 04/08/24 10:57 Dose: 10 mg Ondansetron HCl 6 mg/ Dextrose 53 mls @ 200 mls/hr IV Q6H PRN PRN Reason: Nausea And Vomiting Stop: 04/20/24 08:17 Prochlorperazine 5 mg/ Syringe 5 mls @ 5 mls/min IV Q6H PRN PRN Reason: Nausea And Vomiting Stop: 04/20/24 14:39 Palonosetron 0.25 mg/ Syringe 5 mls @ 10 mls/min IV DAILY PRN PRN Reason: nausea, vomiting Stop: 04/20/24 08:59 Etoposide 140 mg/ Sodium (Chloride) 507 mls @ 507 mls/hr IV TODAY@1215 [facility]; Protocol Stop: 04/09/24 13:14 Last Infusion: 04/08/24 13:19 Dose: Infused Palonosetron 0.25 mg/ Syringe 5 mls @ 10 mls/min IV TODAY@1145 [facility] Stop: 04/09/24 11:46 Loratadine (Loratadine 10 Mg Tab) 10 mg PO QAM [facility] Stop: 04/28/24 14:44 Last Admin: 04/08/24 09:13 Dose: 10 mg Lorazepam (Lorazepam 0.5 Mg Tab) 0.5 mg PO Q6 PRN PRN Reason: Anxiety Stop: 04/14/24 20:33 Last Admin: 03/20/24 00:31 Dose: 0.5 mg Losartan Potassium (Losartan Potassium 50 Mg Tab) 100 mg PO HS [facility] Stop: 04/14/24 20:59 Last Admin: 04/06/24 20:27 Dose: 100 mg Magnesium Hydroxide (Magnesium Hydroxide Susp 30 Ml Udc) 30 ml PO Q12H PRN PRN Reason: Constipation Stop: 04/14/24 20:33 Last Admin: 04/06/24 18:47 Dose: 30 ml Melatonin (Melatonin 3 Mg Tab) 3 mg PO HS PRN PRN Reason: Sleep Stop: 05/07/24 22:55 Metoprolol Tartrate (Metoprolol Tartrate 50 Mg Tab) 50 mg PO BID [facility] Stop: 04/14/24 20:59 Last Admin: 04/08/24 09:11 Dose: 50 mg Miconazole Nitrate (Miconazole Nitrate 2% Cr 30 Gm Tube) 1 appln EXT BID [facility] Stop: 04/26/24 20:59 Last Admin: 04/08/24 09:17 Dose: 1 appln Petrolatum (Butt Paste (Zinc Oxide 16%) 171 Appln/57 Gm Jar) 1 appln EXT BID [facility] Stop: 04/26/24 20:59 Last Admin: 04/08/24 09:17 Dose: Not Given Polyethylene Glycol (Polyethylene (Miralax) 17 Gm Pack) 17 gm PO DAILY PRN PRN Reason: Constipation Stop: 04/26/24 14:39 Polyethylene Glycol (Polyethylene (Miralax) 17 Gm Pack) 17 gm PO HS [facility] Stop: 05/08/24 20:59 Senna/Docusate Sodium (Docusate Sodium/Senna 50/8.6mg Tab) 1 tab PO BID [facility] Stop: 05/08/24 20:59 Sodium Chloride (Sodium Chloride 0.65% Na Soln 45 Ml ([place])) 2 sprays NA TID PRN PRN Reason: Nasal Congestion Stop: 04/27/24 22:01 Last Admin: 03/28/24 22:58 Dose: 2 sprays
[2024-04-08] MEDS: GABAPENTIN 600 MG TAB PO SCH (17:21)
[2024-04-08] MEDS: DOCUSATE SODIUM/SENNA 50/8.6MG TAB PO SCH (20:26)
[2024-04-09 08:12] LABS: Hematocrit (blood only) 33.4 % (37.0-47.0); Hemoglobin 10.6 g/dl (12.0-16.0); Mean Corpuscular Hemoglobin 30.6 pg (25.0-34.0); Mean Corpuscular Hgb Conc 31.7 g/dL (32.0-36.0); Mean Corpuscular Volume 96.5 fL (80.0-100.0); Mean Platelet Volume 9.9 fL (9.4-12.4); Platelet Count 207 K/uL (130-400); RDW Coefficient of Variation 13.7 % (11.5-14.5); RDW Standard Deviation 45.9 fL (36.4-46.3); Red Blood Count 3.46 M/uL (4.20-5.40)
[2024-04-09 08:28] LABS: Albumin Globulin Ratio 1.2 (0.9-2); Albumin Level 3.6 gm/dl (3.4-5.0); BUN Creatinine Ratio 43.3 (10-20); Bilirubin,Total 0.2 mg/dl (0.2-1.0); Creatinine Clr Calc Pharmacy 66.5 ml/min; Est GFR (African American) 97.7 ml/min; Est GFR (Non-African American) 84.3 ml/min; Globulin 2.9 gm/dl (2.5-4.0); Potassium 4.4 mmol/L (3.5-5.1); Total Protein 6.5 gm/dl (6.0-8.3)
[2024-04-09] MEDS: PALONOSETRON 0.25 MG in SYRINGE 0 ML IV SCH (11:48)
--- NOTE | 2024-04-09 15:11 | Hospitalist Progress Note ---
Date of Service April 09, 2024 Assessment & Plan (1) Acute hypoxic respiratory failure: (2) Suspected malignant neoplasm of lung: (3) Myoclonic jerking: (4) Acute kidney injury: (5) Lymphadenopathy, mediastinal: (6) SVC obstruction: (7) Paroxysmal atrial fibrillation: (8) Hypokalemia: (9) Mild right ventricular systolic dysfunction: Plan per previous hospitalist notes with addendum: 83-year-old lady with PMH of HFpEF, A-fib, thoracic aortic aneurysm, HTN, osteoporosis, inflamed seborrheic keratosis, major depressive disorder, tobacco use disorder, aortic valve replacement with bioprosthetic valve who presented to the ED with acute hypoxemic respiratory failure due to suspected lung malignancy and concern for metastatic disease. Acute hypoxic respiratory failure Metastatic Small Cell Carcinoma Large mediastinal mass Postobstructive pneumonia Acute Admitting imaging: CXR with asymmetric right hilar mass like enlargement. Cardiomegaly with pulmonary vascular congestion. Left basilar opacity. CTA chest: No PE. Large right hilar/upper lobe mass measuring 10 x 8 cm highly suspicious for primary bronchogenic malignancy. Right anterior diaphragmatic lymphadenopathy representing metastatic disease. 2.1 cm left upper lobe nodule abutting the mediastinum likely representing metastatic disease. Small right pleural effusion suggestive of malignant pleural effusion. CTAP: Negative for metastatic disease. 1.9 cm left adrenal nodule which was likely present on CT of September 25, 2022. Small right pleural effusion. CT head and CTA head/neck : No acute finding. BioFire negative S/P bronc 03/17 with worsening resp failure requiring bipap. Patient was weaned off of bipap and now on Oxymask. Heme/Onc evaled - S/P Cycle 1 of carbo/etoposide (03/18/2024) [carboplatin day 1, etoposide day 1-3]. Cycle 2 after 21 days of cycle 1, due on 04/07/24 cycle 2 of treatment starting today, --> Thursday. She will then get GCSF on Thursday/Thursday with a plan to DC Thursday to rehab if able. Discussed with Dr. Lyle regarding placement of mediport, will consult general surg for eval as pt currently with US guided line Discussed with General surgery who has scheduled her for a mediport on April 18. She will need to contact hospital on 04/15 to obtain arrival time for thursday. She must hold Eliquis starting Thursday a.m. 04/09 Remains stable overall CBC reviewed Pleural effusions: Acute Admitting imaging: CXR with asymmetric right hilar mass like enlargement. Cardiomegaly with pulmonary vascular congestion. Left basilar opacity. Repeat CXR on 03/31 showed pulm vasc congestion, suspected atelectasis, and pt is being weaned to NC 2 L, was given lasix 40 mg IV 04/01 and 04/02 04/06: Cardiomegaly with pulmonary vascular congestion and unchanged right pleural effusion. Pt with recent administration of IV lasix She was seen and eval by pulm who feels hypoxia in setting of compressive atelectasis due to mass, pleural effusions minimal Takes Bumex twice weekly at home I/O ordered Patient does have R >L LE edema give history of history of anle fractures will schedule nebs at this makes pt feel better 04/09 Respiratory status stable Continue to monitor closely SVC syndrome HTN Nonobstructive CAD Valvular heart disease Hold current diuretics. Pt OOB to chair and bathroom Continue Amlodipine, Losartan, ASA Stroke like symptoms Myoclonic jerks Continue statin, ASA, and Eliquis Pancytopenia: Likely due to chemotherapy per ONC note received GCSF on 03/21 Dr. Lyle recommended additional dose of Neupogen 480mcg 03/30 and 03/31 pt will receive GCSF post chemo Normocytic anemia : Chronic Anemia labs: folate/b12 normal; iron 37, ferritin 58.4. c/w iron PO Atrial fibrillation: Continue Eliquis, amiodarone and lopressor. Ascending Aortic Aneurysm Dissection s/p Repair: CTM, BP control Melatonin HS to aid with sleep Continue gabapentin 300mg BID Dispo: VTE Prophylaxis: On Eliquis. Conditional code: per admitting chest compressions are acceptable, no intubation Peer to peer conducted 03/31, [facility] denied by insurance; per discussion with CM on 04/04, family planning on appeal Pt is accepted at [facility] for tentative DC Thursday I spent a total of 50 minutes coordinating, documenting, and providing care for this patient excluding time spent in the performance of separately billed services. All of the aforementioned completed while collaborating with the assigned attending physician for a full treatment plan. Please see their addendum for further details. Admission and Anticipated Discharge Date Admission Date: March 15, 2024 Subjective Follow-up for mediastinal mass, chemotherapy, etc. Seen sitting up in bedside chair, comfortable, not in distress On O2 at 3 L by nasal cannula States she feels okay overall No shortness of breath, chest pain No other new symptomS Review of Systems Review of Systems: all noted and negative except for above Physical Exam Physical Exam: General- oriented x 3, not in distress, speaks in sentences with no effort or accessory muscle use Eyes- anicteric Neck- no JVD Lungs- clear breath sounds bilaterally, No crackles or wheezing Heart- normal rate, regular rhythm; no murmurs Abdomen- normal bowel sounds, nondistended, soft, nontender Extremities- no pretibial edema, no calf tenderness Neuro- alert, oriented x 3; no gross focal neurologic deficits Skin- warm & dry Results & Data Results & Data Vital Signs (Past 12 Hours) Vital Signs Temp Pulse Resp BP Pulse Ox O2 Del Method O2 Flow Rate 04/09/24 14:43 70 15 99 Oxymask 3 04/09/24 11:38 71 20 94 Oxymask 3 04/09/24 10:34 Oxymask 3 04/09/24 07:57 36.5 C 71 18 130/57 L 98 Room Air 04/09/24 07:22 73 20 95 Oxymask 3 all noted and reviewed including below
[2024-04-10] MEDS: MELATONIN 3 MG TAB PO PRN (02:02)
[2024-04-10] MEDS: FILGRASTIM 480 MCG/1.6 ML VIAL SQ SCH (15:23)
--- NOTE | 2024-04-10 16:54 | Hospitalist Progress Note ---
Date of Service April 10, 2024 Assessment & Plan (1) Acute hypoxic respiratory failure: (2) Suspected malignant neoplasm of lung: (3) Myoclonic jerking: (4) Acute kidney injury: (5) Lymphadenopathy, mediastinal: (6) SVC obstruction: (7) Paroxysmal atrial fibrillation: (8) Hypokalemia: (9) Mild right ventricular systolic dysfunction: Plan per previous hospitalist notes with addendum: 83-year-old lady with PMH of HFpEF, A-fib, thoracic aortic aneurysm, HTN, osteoporosis, inflamed seborrheic keratosis, major depressive disorder, tobacco use disorder, aortic valve replacement with bioprosthetic valve who presented to the ED with acute hypoxemic respiratory failure due to suspected lung malignancy and concern for metastatic disease. Acute hypoxic respiratory failure Metastatic Small Cell Carcinoma Large mediastinal mass Postobstructive pneumonia Acute Admitting imaging: CXR with asymmetric right hilar mass like enlargement. Cardiomegaly with pulmonary vascular congestion. Left basilar opacity. CTA chest: No PE. Large right hilar/upper lobe mass measuring 10 x 8 cm highly suspicious for primary bronchogenic malignancy. Right anterior diaphragmatic lymphadenopathy representing metastatic disease. 2.1 cm left upper lobe nodule abutting the mediastinum likely representing metastatic disease. Small right pleural effusion suggestive of malignant pleural effusion. CTAP: Negative for metastatic disease. 1.9 cm left adrenal nodule which was likely present on CT of September 25, 2022. Small right pleural effusion. CT head and CTA head/neck : No acute finding. BioFire negative S/P bronc 03/17 with worsening resp failure requiring bipap. Patient was weaned off of bipap and now on Oxymask. Heme/Onc evaled - S/P Cycle 1 of carbo/etoposide (03/18/2024) [carboplatin day 1, etoposide day 1-3]. Cycle 2 after 21 days of cycle 1, due on 04/07/24 cycle 2 of treatment starting today, --> Thursday. She will then get GCSF on Thursday/Thursday with a plan to DC Thursday to rehab if able. Discussed with Dr. Lyle regarding placement of mediport, will consult general surg for eval as pt currently with US guided line Discussed with General surgery who has scheduled her for a mediport on April 18. She will need to contact hospital on 04/15 to obtain arrival time for thursday. She must hold Eliquis starting Thursday a.m. 04/09 Remains stable overall CBC reviewed 04/10 repeat labs tomorrow Pleural effusions: Acute Admitting imaging: CXR with asymmetric right hilar mass like enlargement. Cardiomegaly with pulmonary vascular congestion. Left basilar opacity. Repeat CXR on 03/31 showed pulm vasc congestion, suspected atelectasis, and pt is being weaned to NC 2 L, was given lasix 40 mg IV 04/01 and 04/02 04/06: Cardiomegaly with pulmonary vascular congestion and unchanged right pleural effusion. Pt with recent administration of IV lasix She was seen and eval by pulm who feels hypoxia in setting of compressive atelectasis due to mass, pleural effusions minimal Takes Bumex twice weekly at home I/O ordered Patient does have R >L LE edema give history of history of anle fractures will schedule nebs at this makes pt feel better 04/10 Respiratory status stable Continue to monitor closely may need to order PO lasix in light of lower extremity mild edema- patient declines today SVC syndrome HTN Nonobstructive CAD Valvular heart disease Pt OOB to chair and bathroom Continue Amlodipine, Losartan, ASA Stroke like symptoms Myoclonic jerks Continue statin, ASA, and Eliquis Pancytopenia: Likely due to chemotherapy per ONC note received GCSF on 03/21 Dr. Lyle recommended additional dose of Neupogen 480mcg 03/30 and 03/31 pt will receive GCSF post chemo Normocytic anemia : Chronic Anemia labs: folate/b12 normal; iron 37, ferritin 58.4. c/w iron PO Atrial fibrillation: Continue Eliquis, amiodarone and lopressor. Ascending Aortic Aneurysm Dissection s/p Repair: CTM, BP control Melatonin HS to aid with sleep Continue gabapentin 300mg BID Dispo: VTE Prophylaxis: On Eliquis. Conditional code: per admitting chest compressions are acceptable, no intubation Peer to peer conducted 03/31, [facility] denied by insurance; per discussion with CM on 04/04, family planning on appeal Pt is accepted at [facility] for tentative DC Thursday I spent a total of 50 minutes coordinating, documenting, and providing care for this patient excluding time spent in the performance of separately billed services. All of the aforementioned completed while collaborating with the assigned attending physician for a full treatment plan. Please see their addendum for further details. Admission and Anticipated Discharge Date Admission Date: March 15, 2024 Subjective ff up for mediastinal mass, etc seen resting in bed, comfortable states she feels fine overall no chest pain, dyspnea, palpitations, dizziness no other new symptoms Review of Systems Review of Systems: all noted and negative except for above Physical Exam Physical Exam: General- oriented x 3, not in distress, speaks in sentences with no effort or accessory muscle use Eyes- anicteric Neck- no JVD Lungs- clear breath sounds bilaterally, no crackles/wheezing Heart- normal rate, regular rhythm; no murmurs Abdomen- normal bowel sounds, nondistended, soft, no tenderness Extremities- mild pretibial edema, no calf tenderness Neuro- alert, oriented x 3; no gross focal neurologic deficits Skin- warm & dry Results & Data Results & Data Vital Signs (Past 12 Hours) Vital Signs Temp Pulse Resp BP Pulse Ox O2 Del Method O2 Flow Rate 04/10/24 15:47 36.7 C 71 16 119/62 97 Nasal Cannula 3 04/10/24 14:47 68 20 96 Oxymask 3 04/10/24 11:05 60 17 98 Oxymask 3 04/10/24 09:05 74 18 93 Oxymask 3 04/10/24 09:04 Oxymask 3 04/10/24 07:38 36.4 C L 64 16 128/54 L 100 Nasal Cannula 3 all noted and reviewed including below
[2024-04-11 07:26] LABS: BUN Creatinine Ratio 40.7 (10-20); Calcium 8.8 mg/dl (8.6-10.3); Creatinine Clr Calc Pharmacy 73.9 ml/min; Est GFR (African American) 101.1 ml/min; Est GFR (Non-African American) 87.3 ml/min; Potassium 4.1 mmol/L (3.5-5.1)
[2024-04-11 07:32] LABS: Hematocrit (blood only) 31.6 % (37.0-47.0); Hemoglobin 10.3 g/dl (12.0-16.0); Mean Corpuscular Hemoglobin 32.1 pg (25.0-34.0); Mean Corpuscular Hgb Conc 32.6 g/dL (32.0-36.0); Mean Corpuscular Volume 98.4 fL (80.0-100.0); Mean Platelet Volume 10.4 fL (9.4-12.4); Platelet Count 240 K/uL (130-400); RDW Coefficient of Variation 14.3 % (11.5-14.5); Red Blood Count 3.21 M/uL (4.20-5.40); White Blood Count 80.96 K/ul (4.8-10.8)
[2024-04-11 07:39] LABS: Basophils # (auto) 0.09 K/uL (0.00-0.20); Basophils % (auto) 0.1 %; Eosinophils # (auto) 0.01 K/uL (0.00-0.50); Immature Granulocytes # (auto) 3.07 K/uL (0.01-0.20); Immature Granulocytes % (auto) 3.8 %; Lymphocytes # (auto) 3.03 K/uL (1.20-3.40); Lymphocytes % (auto) 3.7 %; Monocytes # (auto) 0.27 K/uL (0.11-0.59); Monocytes % (auto) 0.3 %; Neutrophils # (auto) 74.49 K/uL (1.40-6.50); Neutrophils % (auto) 92.1 %
[2024-04-11 09:56] LABS: Hematocrit (blood only) 30.8 % (37.0-47.0); Hemoglobin 9.9 g/dl (12.0-16.0); Mean Corpuscular Hemoglobin 31.6 pg (25.0-34.0); Mean Corpuscular Hgb Conc 32.1 g/dL (32.0-36.0); Mean Corpuscular Volume 98.4 fL (80.0-100.0); Mean Platelet Volume 10.3 fL (9.4-12.4); Platelet Count 248 K/uL (130-400); RDW Coefficient of Variation 14.4 % (11.5-14.5); RDW Standard Deviation 48.8 fL (36.4-46.3); Red Blood Count 3.13 M/uL (4.20-5.40)
[2024-04-11 10:03] LABS: Basophils % (auto) 0.1 %; Eosinophils # (auto) 0.01 K/uL (0.00-0.50); Immature Granulocytes # (auto) 2.63 K/uL (0.01-0.20); Immature Granulocytes % (auto) 3.4 %; Lymphocytes # (auto) 2.65 K/uL (1.20-3.40); Lymphocytes % (auto) 3.5 %; Monocytes # (auto) 0.18 K/uL (0.11-0.59); Monocytes % (auto) 0.2 %; Neutrophils % (auto) 92.8 %; White Blood Count 76.67 K/ul (4.8-10.8)
[2024-04-11] MEDS ORDERED: VANCOMYCIN CONSULT ACTIVE PRN (10:24)
--- NOTE | 2024-04-11 10:47 | Pharmacy Report ---
Pharmacy PK ABX Note - Date of Service April 11, 2024 - Assessment and Plan Assessment 83 year old started on vancomycin and cefepime empirically. Patient admitted with respiratory failure due to suspected lung malignancy/concern for metastatic disease. PMHx significant for metastatic small cell carcinoma, postobstructive pneumonia, mediastinal mass. Last chemo session 04/07 - Plan per notes was potential rehab today. WBC trending up significantly this AM, therefore antibiotics started, awaiting MRSA nasal swab. Plan Vancomycin * Loading dose: 1250 mg x 1 * Maintenance dose: 1000 mg IV every 12 hours * Regimen is predicted to achieve target AUC/JOSE R of 400-600 mg/L.hr * Random level to be ordered if continued >48 hours Pharmacy will continue to follow and will adjust dose/frequency as necessary. Thank you. Pharmacy has transitioned to AUC monitoring for vancomycin. AUC/JOSE R is the preferred PK/PD target and is associated with decreased risk of nephrotoxicity compared to traditional trough targets.
[2024-04-11] MEDS: CEFEPIME 2,000 MG in SYRINGE 0 ML IV SCH (11:07)
[2024-04-11] MEDS: VANCOMYCIN HCL 1,250 MG in SODIUM CHLORIDE 0.9% 250 ML IV ONE (11:15)
[2024-04-11] MEDS: oxyCODONE HCL IR 5 MG TAB (IMMEDIATE RELEASE) PO STA (11:20)
[2024-04-11 11:49] LABS: Adenovirus PCR Not Detected (NotDetected); Bordetella parapertussis PCR Not Detected (NotDetected); Bordetella pertussis PCR Not Detected (NotDetected); Chlamydia pneumoniae PCR Not Detected (NotDetected); Coronavirus 229E PCR Not Detected (NotDetected); Coronavirus CoV-2 (COVID19)PCR Not Detected (NotDetected); Coronavirus HKU1 PCR Not Detected (NotDetected); Coronavirus NL63 PCR Not Detected (NotDetected); Coronavirus OC43PCR Not Detected (NotDetected); Human Metapneumovirus PCR Not Detected (NotDetected); Influenza A PCR Not Detected (NotDetected); Influenza B PCR Not Detected (NotDetected); Mycoplasma pneumoniae PCR Not Detected (NotDetected); Parainfluenza Virus 1 PCR Not Detected (NotDetected); Parainfluenza Virus 2 PCR Not Detected (NotDetected); Parainfluenza Virus 3 PCR Not Detected (NotDetected); Parainfluenza Virus 4 PCR Not Detected (NotDetected); Respiratory Syncytial VirusPCR Not Detected (NotDetected); Rhinovirus/Enterovirus PCR Not Detected (NotDetected)
[2024-04-11] MEDS: ondansetron HCL 6 MG in DEXTROSE 5% 50 ML IV PRN (14:10)
--- NOTE | 2024-04-11 14:22 | CT Scan Report ---
CT SCAN OF THE CHEST WITHOUT IV CONTRAST CLINICAL HISTORY: Cough. Dyspnea. History of lung cancer. COMPARISON STUDY: Chest x-ray dated 04/07/2024. Prior chest CT scans, most recently dated 03/15/2024. TECHNIQUE: CT scan of the thorax was performed from the thoracic inlet to the upper abdomen. Images are reviewed in the axial, sagittal, and coronal planes. IV contrast was not administered for this ex amination as per the referring clinician. A dose lowering technique was utilized adhering to the ruba Hagan. CT DOSE: 274.29 mGy.cm FINDINGS: Thyroid: Enlarged and heterogeneous indicating goiter. Thoracic aorta: Postsurgical changes seen at the aortic root. There is advanced atherosclerotic calci fication of the thoracic aorta. 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 T his measures up to 4.7 cm in diameter. The remainder of the thoracic aorta is normal in caliber comme nt heart demonstrates standard 3-vessel anatomy. Heart: The patient is status post midline sternotomy. The heart is enlarged and without pericardial e ffusion. The coronary arteries are densely calcified. There is diminished attenuation of the cardiac blood pool as compared to the myocardium suggesting anemia. Lungs and pleural spaces: Moderately advanced emphysematous changes again noted. There are small righ t and trace left pleural effusions with dependent atelectasis. Patchy airspace opacities are seen in the right lower lobe. The trachea is clear. Secretions are noted in the left mainstem bronchus. A rig ht upper lobe paramediastinal mass lesion with mediastinal invasion has significantly decreased in si ze from 03/15/2024. This now measures approximately 7 x 4 cm in maximum axial dimension. A 2.2 cm spic ulated mass is again seen in the paramediastinal left upper lobe on image #59. This is similar to pre vious. A 4 mm right middle lobe nodule on image #145 is unchanged. An 11 mm nodular opacity is clearl y seen previously. Foci of parenchymal scarring are seen throughout both lungs. Mediastinum: As noted above a right paramediastinal mass invades the right aspect of the mediastinum. Ilda: Not well assessed without IV contrast. Axillae: There is no axillary lymphadenopathy. Upper abdomen: Right cardiophrenic lymphadenopathy has decreased in size from previous. The largest n ode on image #194 now measures up to 1.3 cm. Partially visualized upper abdominal viscera is otherwis e within normal limits. Skeletal structures: The skeletal structures are osteopenic. Degenerative change and kyphoscoliosis i s noted in the spine. No lytic or blastic bony lesions are seen. IMPRESSION: 1. Cardiomegaly and emphysema. 2. A large right upper lobe paramediastinal mass lesion with mediastinal indication a significantly d ecreased in size as compared to 03/15/2024. Metastatic right cardiophrenic lymphadenopathy has also de creased from previous. 3. Small right and trace left pleural effusions. 4. Patchy airspace opacities in the right lower lobe are nonspecific and may be on an infectious/infl ammatory basis. Correlate clinically. Attention at follow-up will be required. 5. An 11 mm left lower lobe nodular opacity is new from previous and may also be inflammatory. Attent ion at follow-up will be required. 6. A 2.2 cm spiculated lesion in the paramediastinal left upper lobe is unchanged. This remains highl y suspicious for neoplasm. 7. Additional findings as above. ACT 112: Negative or not required by law. Electronically signed by: Manjinder Myers M.D. 04/11/2024 2:21 PM
--- NOTE | 2024-04-11 15:13 | Hospitalist Progress Note ---
Date of Service April 11, 2024 Assessment & Plan (1) Acute hypoxic respiratory failure: (2) Suspected malignant neoplasm of lung: (3) Myoclonic jerking: (4) Acute kidney injury: (5) Lymphadenopathy, mediastinal: (6) SVC obstruction: (7) Paroxysmal atrial fibrillation: (8) Hypokalemia: (9) Mild right ventricular systolic dysfunction: Plan per previous hospitalist notes with addendum: 83-year-old lady with PMH of HFpEF, A-fib, thoracic aortic aneurysm, HTN, osteoporosis, inflamed seborrheic keratosis, major depressive disorder, tobacco use disorder, aortic valve replacement with bioprosthetic valve who presented to the ED with acute hypoxemic respiratory failure due to suspected lung malignancy and concern for metastatic disease. Acute hypoxic respiratory failure Metastatic Small Cell Carcinoma Large mediastinal mass Bilateral pneumonia Acute Admitting imaging: CXR with asymmetric right hilar mass like enlargement. Cardiomegaly with pulmonary vascular congestion. Left basilar opacity. CTA chest: No PE. Large right hilar/upper lobe mass measuring 10 x 8 cm highly suspicious for primary bronchogenic malignancy. Right anterior diaphragmatic lymphadenopathy representing metastatic disease. 2.1 cm left upp er lobe nodule abutting the mediastinum likely representing metastatic disease. Small right pleural effusion suggestive of malignant pleural effusion. CTAP: Negative for metastatic disease. 1.9 cm left adrenal nodule which was likely present on CT of September 25, 2022. Small right pleural effusion. CT head and CTA head/neck : No acute finding. BioFire negative S/P bronc 03/17 with worsening resp failure requiring bipap. Patient was weaned off of bipap and now on Oxymask. Heme/Onc evaled - S/P Cycle 1 of carbo/etoposide (03/18/2024) [carboplatin day 1, etoposide day 1-3]. cycle 2 of treatment starting today, April 07- s/p Neupogen 04/[address] Lyle regarding placement of mediport, will consult general surg for eval as pt currently with US guided line Discussed with General surgery who has scheduled her for a mediport on April 18. She will need to contact hospital on 04/15 to obtain arrival time for thursday. She must hold Eliquis starting Thursday a.m. 04/11 pt ill feeling, ? chemo induced vs concern for developing infection WBC 76k today, urine, blood cultures, lactic acid obtained --chest CT: cardiomegaly and emphysema.2. A large right upper lobe paramediastinal mass lesion with mediastinal indication a significantly decreased in size as compared to 03/15/2024. Metastatic right cardiophrenic lymphadenopathy has also decreased from previous.3. Small right and trace left pleural effusions.4. Patchy airspace opacities in the right lower lobe are nonspecific and may be on an infectious/inflammatory basis. Correlate clinically. Attention at follow-up will be required.5. An 11 mm left lower lobe nodular opacity is new from previous and may also be inflammatory. Attention at follow-up will be required.6. A 2.2 cm spiculated lesion in the paramediastinal left upper lobe is unchanged. This remains highly suspicious for neoplasm. MRSA Swab negative Empirically cover with IV Cefepime and Flagyl Pleural effusions: Acute Admitting imaging: CXR with asymmetric right hilar mass like enlargement. Cardiomegaly with pulmonary vascular congestion. Left basilar opacity. Repeat CXR on 03/31 showed pulm vasc congestion, suspected atelectasis, and pt is being weaned to NC 2 L, was given lasix 40 mg IV 04/01 and 04/02 04/06: Cardiomegaly with pulmonary vascular congestion and unchanged right pleural effusion. Pt with recent administration of IV lasix She was seen and eval by pulm who feels hypoxia in setting of compressive atele ctasis due to mass, pleural effusions minimal Takes Bumex twice weekly at home I/O ordered Patient does have R >L LE edema give history of history of anle fractures will schedule nebs at this makes pt feel better Remain off home diuretic, will continue to hold given soft blood pressure SVC syndrome HTN Nonobstructive CAD Valvular heart disease Pt OOB to chair and bathroom HOLD Amlodipine, Losartan due to lower BP continue ASA Stroke like symptoms Myoclonic jerks Continue statin, ASA, and Eliquis Pancytopenia: Likely due to chemotherapy per ONC note received GCSF on 03/21 Dr. Lyle recommended additional dose of Neupogen 480mcg 03/30 and 03/31 pt will receive GCSF post chemo on 04/10 WBC 76k today, follow closely, likely exacerbated in setting of illness Normocytic anemia : Chronic Anemia labs: folate/b12 normal; iron 37, ferritin 58.4. c/w iron PO Atrial fibrillation: Continue Eliquis, amiodarone and lopressor. Ascending Aortic Aneurysm Dissection s/p Repair: CTM, BP control Melatonin HS to aid with sleep Continue gabapentin 300mg BID Dispo: VTE Prophylaxis: On Eliquis. Conditional code: per admitting DrTorrie chest compressions are acceptable, no intubation Tentative plan was to discharge today; however due to patients change in condition will re eval on a day to day basis. I spent a total of 50 minutes coordinating, documenting, and providing care for this patient excluding time spent in the performance of separately billed services. All of the aforementioned completed while collaborating with the assigned attending physician for a full treatment plan. Please see their addendum for further details. I discussed case with pts son chase. He agrees with above. Admission and Anticipated Discharge Date Admission Date: March 15, 2024 Subjective Pt was seen and examined in room 356-2. Follow up Acute hypoxic resp failure. She does not feel well today. She c/o chills, sweats, myalgias, headache and cough. She started to not feel well yesterday and attributed it to her chemo. Overall appetite is diminished and she has not moved bowels in 2 days. Review of Systems Review of Systems: All systems reviewed & are unremarkable except as noted in HPI & below Physical Exam Physical Exam: Gen: WD/WN, elderly, F, NAD, A&O x3 HEENT: Normocephalic, atraumatic, conjunctivae moist, sclerae anicteric, mucous membranes moist. Lung: on oxygen via face mask, Clear to Auscultation bilaterally, but audible rales b/l lower lobe Heart: Regular rate, regular rhythm, no murmurs, rubs, or gallops Abdomen: Soft, NT, ND +BS x 4 Extremities:RLE trace edema, ankle brace Skin: Warm, no rash, negative turgor. Results & Data Results & Data Vital Signs (Past 12 Hours) Vital Signs Temp Pulse Resp BP Pulse Ox O2 Del Method O2 Flow Rate 04/11/24 13:34 36.7 C 75 16 99/53 L 98 Oxymask 3 04/11/24 12:15 36.8 C 76 18 118/63 96 Oxymask 3 04/11/24 10:48 73 12 94 Oxymask 3 04/11/24 07:50 Oxymask 3 04/11/24 07:25 71 16 93 Oxymask 3 04/11/24 06:56 36.6 C 69 18 128/57 L 99 Oxymask 3.0 Laboratory Results Short CBC 04/11/24 04/11/24 Range/Units 06:17 08:57 WBC 80.96 H* 76.67 H* (4.8-10.8) K/ul Hgb 10.3 L 9.9 L (12.0-16.0) g/dl Hct 31.6 L 30.8 L (37.0-47.0) % Plt Count 240 248 (130-400) K/uL BMP 04/11/24 06:17 Sodium 138 Potassium 4.1 Chloride 98 Carbon Dioxide 36 H BUN 22 Creatinine 0.54 L Glucose 74 Calcium 8.8 Diagnostic Findings Chest X-Ray 03/15/24 14:08 XR chest 1V portable CLINICAL HISTORY: Dyspnea COMPARISON STUDY: Chest radiograph and chest CT September 25, 2022. FINDINGS: Status post median sternotomy. Mild cardiomegaly is unchanged. A symmetric right hilar mass-like enlargement is present. Left hilum is normal. There is a trace right pleural effusion. No pneumothorax is present. Pulmonary vascular congestion. Left basilar opacity similar to prior exam and favors atelectasis. IMPRESSION: 1. Asymmetric right hilar mass-like enlargement. Although this could be due to pulmonary vessels, a mass or lymphadenopathy cannot be excluded. Chest CT with contrast is recommended. 2. Cardiomegaly with pulmonary vascular congestion. Trace right pleural effusion. 3. Left basilar opacity which likely reflects atelectasis. ACT 112: Positive. There are findings on this exam that require communication between the performing entity and the patient following Patient Test Result Information Act ([place] Act 112) guidelines. Electronically signed by: Nam Delgado M.D. 03/15/2024 2:42 PM Chest CTA 03/15/24 15:02 CHEST CTA for PULMONARY ARTERIES CT DOSE: 727.07 mGy.cm HISTORY: Shortness of breath. TECHNIQUE: Multiaxial CT images of the chest were performed following the intravenous administration of contrast to evaluate the pulmonary arteries. 3D/Maximal intensity projection images were also obtained. Sagittal and coronal reformations were also reviewed. A dose lowering technique was utilized adhering to the principles of ALARA. COMPARISON STUDY: Chest CTA 09/25/2022. FINDINGS: Postoperative changes consistent with graft repair of an ascending thoracic aortic aneurysm. No evidence for an aortic dissection. 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 This remains unchanged. No filling defects within the pulmonary arteries to suggest a pulmonary embolus. However, there is mass effect within the right central pulmonary arteries due to the mediastinal/hilar mass with moderate narrowing of the right upper lobe pulmonary arteries. The heart is normal in size. There is a small right pleural effusion. No pericardial effusion. Limited views of the upper abdomen demonstrate normal liver and spleen. Right anterior diaphragmatic lymphadenopathy measuring up to 2.2 cm consistent with metastatic disease. A few subcentimeter thyroid nodules. These do not meet CT criteria for follow-up. Normal caliber esophagus. There are poststernotomy changes. No suspicious lytic or blastic osseous lesions. Emphysema. No pneumothorax. The right upper lobe bronchus is opacified/obstructed by the right hilar mass. There is also moderate to severe narrowing of the bronchus intermedius due to an endobronchial component of the right hilar mass. This is best seen image 114. The left central airways are patent. There is a 2.1 cm nodule within the left upper lobe abutting the mediastinum on image 153. This likely represents metastatic disease. Biapical pleural-parenchymal nodular densities remain stable and favor scarring. Small focal peripheral consolidation within the right upper lobe anteriorly may represent a postobstructive pneumonitis. There is been interval development of a large right hilar/upper lobe mass which invades into the mediastinum. This results in approximately 75% narrowing of the SVC without evidence for occlusion at this time. This mass extends in to the right paratracheal and subcarinal locations. No left hilar lymphadenopathy. This mass measures approximately 10 x 8 cm and encases multiple right pulmonary arteries and invades into the right upper lobe bronchi and bronchus intermedius. IMPRESSION: 1. No evidence for pulmonary embolus. 2. Interval development of a large right hilar/upper lobe mass measuring 10 x 8 cm described above. This is highly suspicious for a primary bronchogenic malignancy. 3. Right anterior diaphragmatic lymphadenopathy likely represents metastatic disease. 4. There is a 2.1 cm left upper lobe nodule abutting the mediastinum likely representing metastatic disease. 5. Small right pleural effusion which may represent a malignant pleural effusion. 6. This right hilar/upper lobe mass results in mass effect along the right pulmonary arteries as well as invasion into the right upper lobe bronchus and bronchus intermedius as described above. 7. This mass also results in severe narrowing of the SVC without evidence for occlusion at this time. 8. Additional findings as described above. ACT 112: Negative or not required by law. Electronically signed by: Martin Granados M.D. 03/15/2024 5:06 PM Abdomen/Pelvis CT 03/15/24 19:03 CT OF THE ABDOMEN AND PELVIS WITH CONTRAST CLINICAL HISTORY: Evaluate for metastatic disease. COMPARISON STUDY: CTA of the abdomen and pelvis September 25, 2022. Abdominal ultrasound June 22, 2017. TECHNIQUE: Following IV administration of 89 mL of Optiray, axial images of the abdomen and pelvis were obtained from the lung bases to the proximal femurs. Images were reviewed in the axial, sagittal, and coronal planes. IV contrast was administered without complication. Automated exposure control was utilized for the study. A dose lowering technique was utilized adhering to the principles of ALARA. Oral contrast was administered. FINDINGS: A small right pleural effusion is. A 2.8 x 1.9 cm right cardiophrenic angle lymph node on image 42 of 361 is present. There are no suspicious hepatic lesions. 9 mm lateral segment hypodense hepatic lesion is unchanged and CTA of September 25, 2022. This is benign. Spleen, kidneys and pancreas are unremarkable with exception of the left lower pole renal cyst. Left adrenal nodule measures 1.9 cm. Although suboptimally assessed on prior exam, this was likely present on CT of September 25, 2022. Mild nodularity of the right adrenal gland is also likely similar to prior CTA. The infrarenal abdominal aorta is ectatic, measuring 2.9 cm. There is extensive aortoiliac calcified plaque. No abdominal or pelvic lymphadenopathy is present. Prominent left retroperitoneal vessels are unchanged. No evidence for a bowel obstruction. The caliber and wall thickness of small and large bowel are normal. Postoperative findings within the spine are incidentally noted. No suspicious lesions are identified within the visualized skeletal structures. IMPRESSION: 1. No definite evidence for metastatic disease within the abdomen or pelvis. 2. 1.9 cm left adrenal nodule. This was likely present on CT of September 25, 2022. Although likely benign, this could be assessed with a PET/CT as indicated. 3. Pathologic right cardiophrenic angle lymph node. Small right pleural effusion. A malignant effusion cannot be excluded. ACT 112: Negative or not required by law. Electronically signed by: Nam Delgado M.D. 03/16/2024 7:[address] 03/16/24 08:29 CT head/brain wo/w con CT DOSE: 3111.05 mGy.cm CLINICAL HISTORY: Lung cancer. Assess for metastatic disease. TECHNIQUE: Multiaxial CT images of the head were performed both before and after intravenous administration of contrast. A dose lowering technique was utilized adhering to the principles of ALARA. COMPARISON STUDY: None. FINDINGS: Mild mucosal thickening within the ethmoid air cells. There are few opacified right inferior mastoid air cells. Multiple opacified left mastoid air cells are noted. No suspicious lytic or blastic osseous lesions. No calvarial fractures. There is mild motion artifact. The ventricles and sulci are within normal limits. There is no mass, hematoma, midline shift, acute infarct. Postcontrast sequences show no areas of abnormal enhancement. IMPRESSION: No evidence for intracranial metastatic disease. ACT 112: Negative or not required by law. Electronically signed by: Martin Granados M.D. 03/16/2024 4:[address] 03/16/24 21:54 Exam(s): CT HEAD Without Contrast EXAM: CT Head Without Intravenous Contrast CLINICAL HISTORY: Reason for exam: CVA. TECHNIQUE: Axial computed tomography images of the head/brain without intravenous contrast. CTDI is 45.33 mGy and DLP is 677.48 mGy-cm. Automated exposure control was utilized for the study. A dose lowering technique was utilized adhering to the principles of ALARA. COMPARISON: 03/16/2024 FINDINGS: Brain: No hemorrhage, extra-axial fluid collection, mass effect, or edema. Ventricles: Unremarkable. Bones/joints: Unremarkable. No fracture. Soft tissues: Unremarkable. Sinuses: No acute sinusitis. Mastoid air cells: Left mastoid effusion. IMPRESSION: 1. No acute intracranial abnormality. 2. Left mastoid effusion. Electronically signed by: Tom Nguyen MD 03/16/24 22:39 PM Head CTA 03/16/24 21:54 Exam(s): CTA HEAD With Contrast IV Amt: 116 ml opti 320 EXAM: CT Angiography Head With Intravenous Contrast CLINICAL HISTORY: Reason for exam: CVA?. TECHNIQUE: Axial computed tomographic angiography images of the head with intravenous contrast. CTDI is 58.49 mGy and DLP is 624.41 mGy-cm. Automated exposure control was utilized for the study. A dose lowering technique was utilized adhering to the principles of ALARA. MIP reconstructed images were created and reviewed. CONTRAST: Patient received 116 ml opti 320 of IV contrast COMPARISON: No relevant prior studies available. FINDINGS: Right internal carotid artery: No limiting atherosclerotic calcifications within the right ICA. No flow-limiting stenosis. No aneurysm. Right anterior cerebral artery: Unremarkable. No occlusion or significant stenosis. No aneurysm. Right middle cerebral artery: Unremarkable. No occlusion or significant stenosis. No aneurysm. Right posterior cerebral artery: Unremarkable. No occlusion or significant stenosis. No aneurysm. Right vertebral artery: Unremarkable as visualized. Left internal carotid artery: Atherosclerotic calcifications within the left ICA. No flow-limiting stenosis. No aneurysm. Left anterior cerebral artery: Unremarkable. No occlusion or significant stenosis. No aneurysm. Left middle cerebral artery: Unremarkable. No occlusion or significant stenosis. No aneurysm. Left posterior cerebral artery: Unremarkable. No occlusion or significant stenosis. No aneurysm. Left vertebral artery: No flow-limiting atherosclerotic calcifications within the left vertebral artery. Basilar artery: Unremarkable. No occlusion or significant stenosis. No aneurysm. IMPRESSION: No acute findings in the arteries of the head/brain. Electronically signed by: Tom Nguyen MD 03/16/24 22:41 PM Neck CTA 03/16/24 21:54 Exam(s): CTA NECK With Contrast IV Amt: 116 ml opti 320 EXAM: CT Angiography Neck With Intravenous Contrast CLINICAL HISTORY: Reason for exam: CVA?. TECHNIQUE: Routine carotid CT angiography protocol was performed with intravenous contrast. NASCET criteria using the distal ICAs for comparison were used for evaluation of stenoses. CTDI is 64.34 mGy and DLP is 961.59 mGy-cm. Automated exposure control was utilized for the study. A dose lowering technique was utilized adhering to the principles of ALARA. MIP reconstructed images were created and reviewed. CONTRAST: Patient received 116 ml opti 320 of IV contrast COMPARISON: None. FINDINGS: VASCULATURE: Right common carotid artery: Unremarkable. No occlusion or significant stenosis. No dissection. Right internal carotid artery: Atherosclerotic calcifications at the right carotid bulb. No flow-limiting stenosis. Right external carotid artery: Severe stenosis at the ostia of the right external carotid artery. Right vertebral artery: Unremarkable. No occlusion or significant stenosis. No dissection. Left common carotid artery: Unremarkable. No occlusion or significant stenosis. No dissection. Left internal carotid artery: Non flow-limiting atherosclerotic calcifications within the proximal left ICA. Left vertebral artery: Unremarkable. No occlusion or significant stenosis. No dissection. NECK: Bones/joints: Unremarkable. No acute fracture. Soft tissues: Unremarkable. Lung apices: Nodular airspace opacities in the upper lobes and a small right pleural effusion. CAROTID STENOSIS REFERENCE USING NASCET CRITERIA: % ICA stenosis = (1 - narrowest ICA diameter/diameter of distal cervical ICA) x 100. Mild - <50% stenosis. Moderate - 50-69% stenosis. Severe - 70-94% stenosis. Near occlusion - 95-99% stenosis. Occluded - 100% stenosis. IMPRESSION: 1. No flow-limiting stenosis. 2. Nodular airspace opacities in the upper lobes and a small right pleural effusion. Electronically signed by: Tom Nguyen MD 03/16/24 22:43 PM Chest X-Ray 03/17/24 09:01 XR chest 1V portable CLINICAL HISTORY: resp distress TECHNIQUE: Single frontal radiograph of the chest was obtained. Comparison: Comparison is made to chest radiograph 03/15/[address] chest 03/15/2024 FINDINGS: No lines and tubes are seen. Right mediastinal mass is seen, unchanged from prior exam. Airspace opacities are in the right greater than left lower lobe. Small right and trace left pleural effusions are seen. IMPRESSION: 1. Interval increase in small right and trace left pleural effusions with underlying airspace opacities which may represent atelectasis. 2. Again seen is right hilar mass. ACT 112: Negative or not required by law. Electronically signed by: Umesh De Leon M.D. 03/17/2024 9:28 AM Chest X-Ray 03/20/24 11:24 XR chest 1V portable CLINICAL HISTORY: ongoing resp symptoms, r/o effusion TECHNIQUE: Single frontal radiograph of the chest was obtained. Comparison: Comparison is made to chest radiograph 03/17/2024 FINDINGS: Median sternotomy wires are unchanged. Calcified aortic knob is seen. Right hilar mass is seen. Right lower lung airspace opacity is seen compatible with atelectasis. Small right pleural effusion, unchanged. IMPRESSION: 1. Stable small right pleural effusion. Left pleural effusion is more well seen. 2. Right hilar mass is again seen. ACT 112: Negative or not required by law. Electronically signed by: Umesh De Leon M.D. 03/20/2024 12:[address] 03/27/24 20:04 Exam(s): CT HEAD Without Contrast EXAM: CT Head Without Intravenous Contrast CLINICAL HISTORY: Reason for exam: schmid, jerks, eliquis. TECHNIQUE: Axial computed tomography images of the head/brain without intravenous contrast. CTDI is 38.76 mGy and DLP is 547.75 mGy-cm. Automated exposure control was utilized for the study. A dose lowering technique was utilized adhering to the principles of ALARA. COMPARISON: Comparison made to prior head CT from March 16, 2024. FINDINGS: Study is limited secondary to motion artifact. Brain: Unremarkable. No hemorrhage. Mild nonspecific white matter changes. No edema. Ventricles: Mild ventricular megaly. Bones/joints: Unremarkable. No acute fracture. Soft tissues: Unremarkable. Sinuses: Chronic right ethmoid sinusitis with single opacified air cell. No acute sinusitis. Mastoid air cells: There is a large amount of fluid in the left mastoid air cells. No mastoid effusion. IMPRESSION: No evidence of acute intracranial pathology. Electronically signed by: Kamala Perea MD 03/28/24 03:01 AM Chest X-Ray 03/31/24 15:27 XR chest 1V portable HISTORY: 83 years-old Female Eval for edema with hx of valvular disease COMPARISON: 03/20/2024, CTA chest 03/15/2024 TECHNIQUE: AP view of the chest FINDINGS: Cardiac silhouette is enlarged. Median sternotomy. No pneumothorax. Trace left and moderate right pleural effusions are similar to prior. Persistent right perihilar and right basilar consolidation. Decreased size of the large right hilar mass. Mild ill-defined peripheral opacities in the left midlung. Pulmonary vascular congestion. IMPRESSION: 1. Cardiomegaly with pulmonary vascular congestion. 2. Ill-defined peripheral opacities of the left mid lung may be artifactual or represent pneumonia. 3. Moderate right-sided pleural effusion with persistent right basilar consolidation. 4. Large right-sided hilar mass is better seen on the comparison CTA of the chest. ACT 112: Negative or not required by law. The above report was generated using voice recognition software. It may contain grammatical, syntax or spelling errors. Electronically signed by: Jordin Vela M.D. 03/31/2024 4:55 PM Chest X-Ray 04/02/24 07:00 SINGLE VIEW CHEST CLINICAL HISTORY: Follow-up congestive failure. FINDINGS: An AP, portable, upright chest radiograph is compared to study dated 03/31/2024 and correlated with chest CT dated 03/15/2024. The patient is status post midline sternotomy. The heart is enlarged and atherosclerotic calcification of the thoracic aorta. Pulmonary vascular congestion persists emphysema and chronic interstitial thickening is similar to previous. A large mediastinal mass lesion was much better assessed on the recent chest CT. The right and moderate left pleural effusions with dependent consolidation. No pneumothorax is seen. The skeletal structures are osteopenic. The bony thorax is grossly intact. IMPRESSION: 1. Cardiomegaly and emphysema with pulmonary vascular congestion. This is similar to 03/31/2024. 2. Right large left pleural effusions with dependent consolidation. 3. A large mediastinal mass lesion was better assessed on the recent chest CT. ACT 112: Negative or not required by law. Electronically signed by: Manjinder Myers M.D. 04/02/2024 7:14 AM Chest X-Ray 04/06/24 12:35 XR chest 1V portable HISTORY: 83 years-old Female SOB acute shortness of breath COMPARISON: Chest radiograph 04/02/2024, CTA chest 03/15/2024. TECHNIQUE: AP view the chest FINDINGS: Cardiac silhouette is enlarged. Median sternotomy. Layering right pleural effusion with right basilar consolidation redemonstrated, mildly improved. Edema. Pulmonary vascular congestion with interstitial coarsening. Mediastinal mass better seen on prior chest CT. IMPRESSION: 1. Cardiomegaly with pulmonary vascular congestion. 2. Unchanged right pleural effusion with mildly improved right basilar opacities. 3. Mediastinal mass is better assessed on prior chest CT. ACT 112: Negative or not required by law. The above report was generated using voice recognition software. It may contain grammatical, syntax or spelling errors. Electronically signed by: Jordin Vela M.D. 04/06/2024 2:27 PM Chest X-Ray 04/07/24 08:00 XR chest 1V portable CLINICAL HISTORY: SOB/small cell lung CA/pleural effusions COMPARISON STUDY: Chest CT March 15, 2024. Chest radiograph April 06, 2024. FINDINGS: There is no pneumothorax. Small right and trace left pleural effusions are similar to prior exam. Cardiomediastinal silhouette is stable. The mediastinal mass has decreased in size since chest CT of March 15, 2024. Slight asymmetric right hilar enlargement. There is pulmonary vascular congestion. This is unchanged. No consolidation is identified to suggest pneumonia. IMPRESSION: 1. Pulmonary vascular congestion, similar to prior exam. 2. No change in small right and trace left pleural effusions. ACT 112: Negative or not required by law. Electronically signed by: Nam Delgado M.D. 04/07/2024 7:[address] 04/11/24 10:23 CT SCAN OF THE CHEST WITHOUT IV CONTRAST CLINICAL HISTORY: Cough. Dyspnea. History of lung cancer. COMPARISON STUDY: Chest x-ray dated 04/07/2024. Prior chest CT scans, most recently dated 03/15/2024. TECHNIQUE: CT scan of the thorax was performed from the thoracic inlet to the upper abdomen. Images are reviewed in the axial, sagittal, and coronal planes. IV contrast was not administered for this examination as per the referring clinician. A dose lowering technique was utilized adhering to the principles of ALARA. CT DOSE: 274.29 mGy.cm FINDINGS: Thyroid: Enlarged and heterogeneous indicating goiter. Thoracic aorta: Postsurgical changes seen at the aortic root. There is advanced atherosclerotic calcification of the thoracic aorta. 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 This measures up to 4.7 cm in diameter. The remainder of the thoracic aorta is normal in caliber comment heart demonstrates standard 3-vessel anatomy. Heart: The patient is status post midline sternotomy. The heart is enlarged and without pericardial effusion. The coronary arteries are densely calcified. There is diminished attenuation of the cardiac blood pool as compared to the myocardium suggesting anemia. Lungs and pleural spaces: Moderately advanced emphysematous changes again noted. There are small right and trace left pleural effusions with dependent atelectasis. Patchy airspace opacities are seen in the right lower lobe. The trachea is clear. Secretions are noted in the left mainstem bronchus. A right upper lobe paramediastinal mass lesion with mediastinal invasion has significantly decreased in size from 03/15/2024. This now measures approximately 7 x 4 cm in maximum axial dimension. A 2.2 cm spiculated mass is again seen in the paramediastinal left upper lobe on image #59. This is similar to previous. A 4 mm right middle lobe nodule on image #145 is unchanged. An 11 mm nodular opacity is clearly seen previously. Foci of parenchymal scarring are seen throughout both lungs. Mediastinum: As noted above a right paramediastinal mass invades the right aspect of the mediastinum. Ilda: Not well assessed without IV contrast. Axillae: There is no axillary lymphadenopathy. Upper abdomen: Right cardiophrenic lymphadenopathy has decreased in size from previous. The largest node on image #194 now measures up to 1.3 cm. Partially visualized upper abdominal viscera is otherwise within normal limits. Skeletal structures: The skeletal structures are osteopenic. Degenerative change and kyphoscoliosis is noted in the spine. No lytic or blastic bony lesions are seen. IMPRESSION: 1. Cardiomegaly and emphysema. 2. A large right upper lobe paramediastinal mass lesion with mediastinal indication a significantly decreased in size as compared to 03/15/2024. Metastatic right cardiophrenic lymphadenopathy has also decreased from previous. 3. Small right and trace left pleural effusions. 4. Patchy airspace opacities in the right lower lobe are nonspecific and may be on an infectious/inflammatory basis. Correlate clinically. Attention at follow- up will be required. 5. An 11 mm left lower lobe nodular opacity is new from previous and may also be inflammatory. Attention at follow-up will be required. 6. A 2.2 cm spiculated lesion in the paramediastinal left upper lobe is unchanged. This remains highly suspicious for neoplasm. 7. Additional findings as above. ACT 112: Negative or not required by law. Electronically signed by: Manjinder Myers M.D. 04/11/2024 2:21 PM Medications Administered Current Inpatient Medications Acetaminophen (Acetaminophen 500 Mg Tab) 1,000 mg PO TID PRN PRN Reason: Pain or Fever Stop: 04/14/24 20:33 Last Admin: 04/11/24 08:00 Dose: 1,000 mg Al Hydrox/Mg Hydrox/Simethicone (Aluminum/Magnesium Susp 30 Ml Udc) 15 ml PO Q4H PRN PRN Reason: Dyspepsia Stop: 04/14/24 20:33 Albuterol (Albuterol Hfa 8 Gm Inhaler) 2 puffs INH Q4 PRN PRN Reason: shortness of breath or wheezin Stop: 04/14/24 20:33 Last Admin: 04/07/24 08:06 Dose: 2 puffs Albuterol (Albuterol 0.083% Nebu Soln 3 Ml Vial) 2.5 mg NEB QIDR [facility]; Protocol Stop: 05/08/24 09:54 Last Admin: 04/11/24 10:48 Dose: 2.5 mg Amiodarone HCl (Amiodarone 200 Mg Tab) 200 mg PO DAILY [facility] Stop: 04/15/24 08:59 Last Admin: 04/11/24 08:00 Dose: 200 mg Amlodipine Besylate (Amlodipine Besylate 5 Mg Tab) 2.5 mg PO QAM [facility] Stop: 04/21/24 08:59 Last Admin: 04/11/24 08:01 Dose: 2.5 mg Apixaban (Apixaban 5 Mg Tablet) 5 mg PO BID [facility] Stop: 04/17/24 20:59 Last Admin: 04/11/24 08:02 Dose: 5 mg Artificial Tears (Artificial Tears) 1 drops OPB QID PRN PRN Reason: Dryness Stop: 04/16/24 14:19 Aspirin (Aspirin 81 Mg Ectab) [facility] [place] Stop: 04/18/24 08:59 Last Admin: 04/11/24 08:02 Dose: 81 mg Atorvastatin Calcium (Atorvastatin 40 Mg Tab) 40 mg PO [facility] Stop: 04/16/24 20:59 Last Admin: 04/10/24 20:31 Dose: 40 mg Buspirone HCl (Buspirone 5 Mg Tab) 10 mg PO [facility] Stop: 04/14/24 20:59 Last Admin: 04/10/24 20:31 Dose: 10 mg Ferrous Sulfate (Ferrous Sulfate 325 Mg Tab) [facility] [place] Stop: 04/24/24 08:59 Last Admin: 04/11/24 08:02 Dose: 325 mg Fluticasone Propionate (Fluticasone Propionate Na Spr 16 Gm Btl) 1 sprays NA [facility] Stop: 05/04/24 20:59 Last Admin: 04/10/24 20:31 Dose: 1 sprays Furosemide (Furosemide 40 Mg/4 Ml Vial) 40 mg IV QAM [facility] Stop: 05/02/24 08:59 Last Admin: 04/02/24 09:26 Dose: 40 mg Gabapentin (Gabapentin 600 Mg Tab) 600 mg PO DAILY@0900,1700 [facility] Stop: 05/08/24 16:59 Last Admin: 04/11/24 08:02 Dose: 600 mg Gabapentin (Gabapentin 300 Mg Cap) 300 mg PO DAILY@1200,2100 [facility] Stop: 05/08/24 11:59 Last Admin: 04/11/24 11:20 Dose: 300 mg Hydralazine HCl (Hydralazine Hcl 20 Mg/Ml Vial) 5 mg IV Q4H PRN PRN Reason: Systolic BP >175 Stop: 04/20/24 14:41 Hydroxyzine HCl (Hydroxyzine Hcl 10 Mg Tab) 10 mg PO QID PRN PRN Reason: Anxiety Stop: 04/28/24 05:03 Last Admin: 04/09/24 11:07 Dose: 10 mg Ondansetron HCl 6 mg/ Dextrose 53 mls @ 200 mls/hr IV Q6H PRN PRN Reason: Nausea And Vomiting - 1st line Stop: 04/20/24 08:17 Last Infusion: 04/11/24 14:36 Dose: Infused Prochlorperazine 5 mg/ Syringe 5 mls @ 5 mls/min IV Q6H PRN PRN Reason: Nausea And Vomiting - 2nd line Stop: 04/20/24 14:39 Palonosetron 0.25 mg/ Syringe 5 mls @ 10 mls/min IV DAILY PRN PRN Reason: nausea, vomiting - 3rd line Stop: 04/20/24 08:59 Cefepime HCl 2,000 mg/ Syringe 20 mls @ 5 mls/min IV Q8H [facility]; Protocol Stop: 04/18/24 10:59 Last Admin: 04/11/24 11:07 Dose: 5 mls/min Metronidazole (Flagyl) 500 mg in 100 mls @ 100 mls/hr IV Q8H [facility]; Protocol Stop: 04/18/24 14:59 Loratadine (Loratadine 10 Mg Tab) 10 mg PO QAM [facility] Stop: 04/28/24 14:44 Last Admin: 04/11/24 08:02 Dose: 10 mg Lorazepam (Lorazepam 0.5 Mg Tab) 0.5 mg PO Q6 PRN PRN Reason: Anxiety Stop: 04/14/24 20:33 Last Admin: 04/11/24 13:40 Dose: 0.5 mg Losartan Potassium (Losartan Potassium 50 Mg Tab) 100 mg PO HS [facility] Stop: 04/14/24 20:59 Last Admin: 04/06/24 20:27 Dose: 100 mg Magnesium Hydroxide (Magnesium Hydroxide Susp 30 Ml Udc) 30 ml PO Q12H PRN PRN Reason: Constipation Stop: 04/14/24 20:33 Last Admin: 04/10/24 20:30 Dose: 30 ml Melatonin (Melatonin 3 Mg Tab) 3 mg PO HS PRN PRN Reason: Sleep Stop: 05/07/24 22:55 Last Admin: 04/10/24 22:32 Dose: 3 mg Metoprolol Tartrate (Metoprolol Tartrate 50 Mg Tab) 50 mg PO BID [facility] Stop: 04/14/24 20:59 Last Admin: 04/11/24 08:02 Dose: 50 mg Miconazole Nitrate (Miconazole Nitrate 2% Cr 30 Gm Tube) 1 appln EXT BID [facility] Stop: 04/26/24 20:59 Last Admin: 04/11/24 08:03 Dose: 1 appln Petrolatum (Butt Paste (Zinc Oxide 16%) 171 Appln/57 Gm Jar) 1 appln EXT BID [facility] Stop: 04/26/24 20:59 Last Admin: 04/11/24 08:03 Dose: 1 appln Polyethylene Glycol (Polyethylene (Miralax) 17 Gm Pack) 17 gm PO HS [facility] Stop: 05/08/24 20:59 Last Admin: 04/10/24 20:31 Dose: Not Given Polyethylene Glycol (Polyethylene (Miralax) 17 Gm Pack) 17 gm PO DAILY [facility] Stop: 05/12/24 08:59 Senna/Docusate Sodium (Docusate Sodium/Senna 50/8.6mg Tab) 1 tab PO BID [facility] Stop: 05/08/24 20:59 Last Admin: 04/11/24 08:02 Dose: 1 tab Sodium Chloride (Sodium Chloride 0.65% Na Soln 45 Ml (Rebecca)) 2 sprays NA TID PRN PRN Reason: Nasal Congestion Stop: 04/27/24 22:01 Last Admin: 03/28/24 22:58 Dose: 2 sprays
[2024-04-11] MEDS: metroNIDAZOLE 500 MG/100 ML BAG IV SCH (15:45)
[2024-04-11] MEDS: FUROSEMIDE INJ 20 MG/2 ML VIAL IV ONE (17:21)
[2024-04-11] MEDS: SODIUM CHLOR 7% 4 ML NEB NEB SCH (20:09)
[2024-04-11] MEDS: guaiFENesin 600 MG TABCR PO SCH (20:46)
[2024-04-11] MEDS ORDERED: VANCOMYCIN HCL 1,000 MG in SODIUM CHLORIDE 0.9% 250 ML IV SCH (22:00)
[2024-04-11] MEDS: diphenhydrAMINE Capsule 25 MG CAP PO ONE (22:30)
[2024-04-12] MEDS: POLYETHYLENE (MIRALAX) 17 GM PACK PO SCH (08:10)
[2024-04-12 09:51] LABS: Albumin Globulin Ratio 1.4 (0.9-2); Albumin Level 3.3 gm/dl (3.4-5.0); BUN Creatinine Ratio 35.1 (10-20); Bilirubin,Total 0.4 mg/dl (0.2-1.0); Calcium 8.6 mg/dl (8.6-10.3); Est GFR (African American) 99.4 ml/min; Est GFR (Non-African American) 85.7 ml/min; Globulin 2.3 gm/dl (2.5-4.0); Magnesium 2.2 mg/dl (1.7-2.4); Potassium 3.5 mmol/L (3.5-5.1); Total Protein 5.6 gm/dl (6.0-8.3)
[2024-04-12 10:19] LABS: Hematocrit (blood only) 29.5 % (37.0-47.0); Hemoglobin 9.5 g/dl (12.0-16.0); Mean Corpuscular Hemoglobin 31.4 pg (25.0-34.0); Mean Corpuscular Hgb Conc 32.2 g/dL (32.0-36.0); Mean Corpuscular Volume 97.4 fL (80.0-100.0); Platelet Count 270 K/uL (130-400); RDW Coefficient of Variation 14.4 % (11.5-14.5); RDW Standard Deviation 48.9 fL (36.4-46.3); Red Blood Count 3.03 M/uL (4.20-5.40); White Blood Count 33.33 K/ul (4.8-10.8)
[2024-04-12 10:20] LABS: Basophils # (auto) 0.13 K/uL (0.00-0.20); Basophils % (auto) 0.4 %; Eosinophils # (auto) 0.03 K/uL (0.00-0.50); Eosinophils % (auto) 0.1 %; Immature Granulocytes # (auto) 0.39 K/uL (0.01-0.20); Immature Granulocytes % (auto) 1.2 %; Lymphocytes # (auto) 1.48 K/uL (1.20-3.40); Lymphocytes % (auto) 4.4 %; Monocytes # (auto) 0.08 K/uL (0.11-0.59); Monocytes % (auto) 0.2 %; Neutrophils # (auto) 31.22 K/uL (1.40-6.50); Neutrophils % (auto) 93.7 %; RBC Morphology Unremarkable
[2024-04-12] MEDS: oxyCODONE HCL IR 5 MG TAB (IMMEDIATE RELEASE) PO SCH (12:30)
--- NOTE | 2024-04-12 13:13 | CT Scan Report ---
CT SCAN OF THE BRAIN WITHOUT IV CONTRAST CLINICAL HISTORY: Headache. COMPARISON STUDY: CT of the brain dated 03/27/2024. TECHNIQUE: Unenhanced axial CT scan of the brain is performed from the vertex to the skull base. A do se lowering technique was utilized adhering to the principles of ALARA. CT DOSE: 625.8 mGy.cm FINDINGS: Brain parenchyma: There is age-related involutional change noting mild subcortical and periventricula r microangiopathic disease. There is no hemorrhage, mass effect, or evidence of acute territorial isc hemia by CT criteria. Childress-white matter differentiation is preserved. No extra-axial fluid collection is seen. Ventricles, sulci, cisterns: Prominent secondary to involutional change. Intracranial vasculature: There is atherosclerotic calcification of the cavernous carotid and vertebr al arteries. Calvarium: Unremarkable. Sinuses and mastoids: There is mucosal thickening within the right posterior ethmoid sinuses. The rem aining visualized paranasal sinuses are clear. There is a large left mastoid effusion. A small amount of effusion is seen on the right. Orbits: The bony orbits are grossly intact. There are bilateral ocular lens implants. IMPRESSION: 1. There is no hemorrhage, mass effect, or evidence of acute territorial ischemia by CT criteria. 2. Left larger than right mastoid effusions are similar to previous. ACT 112: Negative or not required by law. Electronically signed by: Manjinder Myers M.D. 04/12/2024 1:12 PM
[2024-04-12] MEDS: bisacodyL 5 MG TABEC PO ONE (15:16)
--- NOTE | 2024-04-12 15:34 | Hospitalist Progress Note ---
<Statement entered by Nishant Colindres MD - 04/20/24 17:33> delayed entry date of service noted above Attending Addendum: Case reviewed with the advanced practitioner. I have reviewed the advanced practitioner's documentation on the date of service referenced in note, and I agree with, and take responsibility for the plan of care. please refer to her notes for full details Nishant Colindres MD Date of Service April 12, 2024 Assessment & Plan (1) Acute hypoxic respiratory failure: (2) Suspected malignant neoplasm of lung: (3) Myoclonic jerking: (4) Acute kidney injury: (5) Lymphadenopathy, mediastinal: (6) SVC obstruction: (7) Paroxysmal atrial fibrillation: (8) Hypokalemia: (9) Mild right ventricular systolic dysfunction: Plan per previous hospitalist notes with addendum: 83-year-old lady with PMH of HFpEF, A-fib, thoracic aortic aneurysm, HTN, osteoporosis, inflamed seborrheic keratosis, major depressive disorder, tobacco use disorder, aortic valve replacement with bioprosthetic valve who presented to the ED with acute hypoxemic respiratory failure due to suspected lung malignancy and concern for metastatic disease. Acute hypoxic respiratory failure Metastatic Small Cell Carcinoma Large mediastinal mass Bilateral pneumonia Acute Admitting imaging: CXR with asymmetric right hilar mass like enlargement. Cardiomegaly with pulmonary vascular congestion. Left basilar opacity. CTA chest: No PE. Large right hilar/upper lobe mass measuring 10 x 8 cm highly suspicious for primary bronchogenic malignancy. Right anterior diaphragmatic lymphadenopathy representing metastatic disease. 2.1 cm left upper lobe nodule abutting the mediastinum likely representing metastatic disease. Small right pleural effusion suggestive of malignant pleural effusion. CTAP: Negative for metastatic disease. 1.9 cm left adrenal nodule which was likely present on CT of September 25, 2022. Small right pleural effusion. CT head and CTA head/neck : No acute finding. BioFire negative S/P bronc 03/17 with worsening resp failure requiring bipap. Patient was weaned off of bipap and now on Oxymask. Heme/Onc evaled - S/P Cycle 1 of carbo/etoposide (03/18/2024) [carboplatin day 1, etoposide day 1-3]. cycle 2 of treatment starting today, April 07- s/p Neupogen 04/[address] Lyle regarding placement of mediport, will consult general surg for eval as pt currently with US guided line Discussed with General surgery who has scheduled her for a mediport on April 18. She will need to contact hospital on 04/15 to obtain arrival time for thursday. She must hold Eliquis starting Thursday a.m. 04/11 pt ill feeling, ? chemo induced vs concern for developing infection WBC 76k today, urine, blood cultures, lactic acid obtained --chest CT: cardiomegaly and emphysema.2. A large right upper lobe paramediastinal mass lesion with mediastinal indication a significantly decreased in size as compared to 03/15/2024. Metastatic right cardiophrenic lymphadenopathy has also decreased from previous.3. Small right and trace left pleural effusions.4. Patchy airspace opacities in the right lower lobe are nonspecific and may be on an infectious/inflammatory basis. Correlate clinically. Attention at follow-up will be required.5. An 11 mm left lower lobe nodular opacity is new from previous and may also be inflammatory. Attention at follow-up will be required.6. A 2.2 cm spiculated lesion in the paramediastinal left upper lobe is unchanged. This remains highly suspicious for neoplasm. MRSA Swab negative Empirically cover with IV Cefepime and Flagyl Blood culture: NGTD Urine Culture: Pinpoint colonies reincubating Pleural effusions: Acute Admitting imaging: CXR with asymmetric right hilar mass like enlargement. Cardiomegaly with pulmonary vascular congestion. Left basilar opacity. Repeat CXR on 03/31 showed pulm vasc congestion, suspected atelectasis, and pt is being weaned to NC 2 L, was given lasix 40 mg IV 04/01 and 04/02 04/06: Cardiomegaly with pulmonary vascular congestion and unchanged right pleural effusion. Pt with recent administration of IV lasix She was seen and eval by pulm who feels hypoxia in setting of compressive atelectasis due to mass, pleural effusions minimal Takes Bumex twice weekly at home I/O ordered Patient does have R >L LE edema give history of history of anle fractures will schedule nebs at this makes pt feel better Remain off home diuretic, will continue to hold given soft blood pressure SVC syndrome HTN Nonobstructive CAD Valvular heart disease Pt OOB to chair and bathroom HOLD Amlodipine, Losartan due to lower BP continue ASA Stroke like symptoms Myoclonic jerks Continue statin, ASA, and Eliquis Pancytopenia: Likely due to chemotherapy per ONC note received GCSF on 03/21 Dr. Lyle recommended additional dose of Neupogen 480mcg 03/30 and 03/31 pt will receive GCSF post chemo on 04/10 WBC improving from 77k --> 33k, likely in setting of GCSF and underlying infection Normocytic anemia : Chronic Anemia labs: folate/b12 normal; iron 37, ferritin 58.4. c/w iron PO Atrial fibrillation: Continue Eliquis, amiodarone and lopressor. Ascending Aortic Aneurysm Dissection s/p Repair: CTM, BP control Melatonin HS to aid with sleep Continue gabapentin 300mg BID Dispo: VTE Prophylaxis: On Eliquis. Conditional code: per admitting chest compressions are acceptable, no intubation Continue to monitor day 2 day, pt is accepted at [facility], was to d/c on 04/11 but due to ADR of CHEMO and b/l pneumonia, discharge was postponed, CM will need to re apply for auth so when felt medically stable please let CM know; also pt scheduled for Port Placement Thursday so if slow to improve may benefit from continued hospitalization until port placement I spent a total of 55 minutes coordinating, documenting, and providing care for this patient excluding time spent in the performance of separately billed services. All of the aforementioned completed while collaborating with the assigned attending physician for a full treatment plan. Please see their addendum for further details. I discussed case with pts son Timur. He agrees with above. He wishes for daily updates. CBC w diff, CMP in am of 04/14, pt with freq daily lab draws and significant c/o of discomfort. Unless medically necessary will stop doing daily labs Admission and Anticipated Discharge Date Admission Date: March 15, 2024 Subjective Pt was seen and examined in room 356-2. Follow up Acute hypoxic resp failure. She feels improved today but still has a headache. She c/o chills, sweats and myalgias. She continues to have SOB, but feels cough is better. Overall poor appetite and down that she feels so weak. Review of Systems Review of Systems: All systems reviewed & are unremarkable except as noted in HPI & below Physical Exam Physical Exam: Gen: WD/WN, elderly, F, NAD, A&O x3 HEENT: Normocephalic, atraumatic, conjunctivae moist, sclerae anicteric, mucous membranes moist. Lung: on oxygen via face mask, Clear to Auscultation bilaterally, diminished b/l Heart: Regular rate, regular rhythm, no murmurs, rubs, or gallops Abdomen: Soft, NT, ND +BS x 4 Extremities:RLE trace edema, ankle brace Skin: Warm, no rash, negative turgor. Results & Data Results & Data Vital Signs (Past 12 Hours) Vital Signs Temp Pulse Resp BP Pulse Ox O2 Del Method O2 Flow Rate 04/12/24 14:44 36.6 C 70 16 101/55 L 97 Oxymask 3.0 04/12/24 11:11 75 18 97 Oxymask 3 04/12/24 07:50 Oxymask 3 04/12/24 07:12 74 18 98 Oxymask 3 04/12/24 07:09 36.5 C 74 16 119/65 98 Oxymask 3.0 Medications Administered Current Inpatient Medications Acetaminophen (Acetaminophen 500 Mg Tab) 1,000 mg PO TID PRN PRN Reason: Pain or Fever Stop: 04/14/24 20:33 Last Admin: 04/12/24 13:32 Dose: 1,000 mg Al Hydrox/Mg Hydrox/Simethicone (Aluminum/Magnesium Susp 30 Ml Udc) 15 ml PO Q4H PRN PRN Reason: Dyspepsia Stop: 04/14/24 20:33 Albuterol (Albuterol Hfa 8 Gm Inhaler) 2 puffs INH Q4 PRN PRN Reason: shortness of breath or wheezin Stop: 04/14/24 20:33 Last Admin: 04/11/24 20:47 Dose: 2 puffs Albuterol (Albuterol 0.083% Nebu Soln 3 Ml Vial) 2.5 mg NEB QIDR JOSE; Protocol Stop: 05/08/24 09:54 Last Admin: 04/12/24 11:09 Dose: 2.5 mg Amiodarone HCl (Amiodarone 200 Mg Tab) 200 mg PO DAILY [facility] Stop: 04/15/24 08:59 Last Admin: 04/12/24 08:05 Dose: 200 mg Amlodipine Besylate (Amlodipine Besylate 5 Mg Tab) 2.5 mg PO QAM [facility] Stop: 04/21/24 08:59 Last Admin: 04/11/24 08:01 Dose: 2.5 mg Apixaban (Apixaban 5 Mg Tablet) 5 mg PO BID [facility] Stop: 04/17/24 20:59 Last Admin: 04/12/24 08:06 Dose: 5 mg Artificial Tears (Artificial Tears) 1 drops OPB QID PRN PRN Reason: Dryness Stop: 04/16/24 14:19 Aspirin (Aspirin 81 Mg Ectab) 81 mg PO QAM [facility] Stop: 04/18/24 08:59 Last Admin: 04/12/24 08:06 Dose: 81 mg Atorvastatin Calcium (Atorvastatin 40 Mg Tab) 40 mg PO HS [facility] Stop: 04/16/24 20:59 Last Admin: 04/11/24 20:47 Dose: 40 mg Buspirone HCl (Buspirone 5 Mg Tab) 10 mg PO [facility] Stop: 04/14/24 20:59 Last Admin: 04/11/24 20:46 Dose: 10 mg Ferrous Sulfate (Ferrous Sulfate 325 Mg Tab) [facility] Stop: 04/24/24 08:59 Last Admin: 04/12/24 08:06 Dose: 325 mg Fluticasone Propionate (Fluticasone Propionate Na Spr 16 Gm Btl) 1 sprays NA [facility] Stop: 05/04/24 20:59 Last Admin: 04/11/24 20:47 Dose: 1 sprays Furosemide (Furosemide 40 Mg/4 Ml Vial) 40 [facility] Stop: 05/02/24 08:59 Last Admin: 04/02/24 09:26 Dose: 40 mg Gabapentin (Gabapentin 600 Mg Tab) 600 mg PO DAILY@0900,1700 [facility] Stop: 05/08/24 16:59 Last Admin: 04/12/24 08:06 Dose: 600 mg Gabapentin (Gabapentin 300 Mg Cap) 300 mg PO DAILY@1200,2100 [facility] Stop: 05/08/24 11:59 Last Admin: 04/12/24 11:26 Dose: 300 mg Guaifenesin (Guaifenesin 600 Mg Tabcr) 600 mg PO Q12 [facility] Stop: 05/11/24 20:59 Last Admin: 04/12/24 08:06 Dose: 600 mg Hydralazine HCl (Hydralazine Hcl 20 Mg/Ml Vial) 5 mg IV Q4H PRN PRN Reason: Systolic BP >175 Stop: 04/20/24 14:41 Hydroxyzine HCl (Hydroxyzine Hcl 10 Mg Tab) 10 mg PO QID PRN PRN Reason: Anxiety Stop: 04/28/24 05:03 Last Admin: 04/09/24 11:07 Dose: 10 mg Ondansetron HCl 6 mg/ Dextrose 53 mls @ 200 mls/hr IV Q6H PRN PRN Reason: Nausea And Vomiting - 1st line Stop: 04/20/24 08:17 Last Infusion: 04/11/24 14:36 Dose: Infused Prochlorperazine 5 mg/ Syringe 5 mls @ 5 mls/min IV Q6H PRN PRN Reason: Nausea And Vomiting - 2nd line Stop: 04/20/24 14:39 Palonosetron 0.25 mg/ Syringe 5 mls @ 10 mls/min IV DAILY PRN PRN Reason: nausea, vomiting - 3rd line Stop: 04/20/24 08:59 Cefepime HCl 2,000 mg/ Syringe 20 mls @ 5 mls/min IV Q8H [facility]; Protocol Stop: 04/18/24 10:59 Last Admin: 04/12/24 11:23 Dose: 5 mls/min Metronidazole (Flagyl) 500 mg in 100 mls @ 100 mls/hr IV Q8H [facility]; Protocol Stop: 04/18/24 14:59 Last Admin: 04/12/24 15:15 Dose: 100 mls/hr Loratadine (Loratadine 10 Mg Tab) 10 mg PO QAM [facility] Stop: 04/28/24 14:44 Last Admin: 04/12/24 08:06 Dose: 10 mg Lorazepam (Lorazepam 0.5 Mg Tab) 0.5 mg PO Q6 PRN PRN Reason: Anxiety Stop: 04/14/24 20:33 Last Admin: 04/11/24 13:40 Dose: 0.5 mg Losartan Potassium (Losartan Potassium 50 Mg Tab) 100 mg PO HS [facility] Stop: 04/14/24 20:59 Last Admin: 04/06/24 20:27 Dose: 100 mg Magnesium Hydroxide (Magnesium Hydroxide Susp 30 Ml Udc) 30 ml PO Q12H PRN PRN Reason: Constipation Stop: 04/14/24 20:33 Last Admin: 04/12/24 08:06 Dose: 30 ml Melatonin (Melatonin 3 Mg Tab) 3 mg PO HS PRN PRN Reason: Sleep Stop: 05/07/24 22:55 Last Admin: 04/10/24 22:32 Dose: 3 mg Metoprolol Tartrate (Metoprolol Tartrate 50 Mg Tab) 50 mg PO BID [facility] Stop: 04/14/24 20:59 Last Admin: 04/12/24 08:06 Dose: 50 mg Miconazole Nitrate (Miconazole Nitrate 2% Cr 30 Gm Tube) 1 appln EXT BID JOSE Stop: 04/26/24 20:59 Last Admin: 04/12/24 08:11 Dose: 1 appln Oxycodone HCl (Oxycodone Hcl Ir 5 Mg Tab (Immediate Release)) 5 mg PO TODAY@1200 [facility] Stop: 04/12/24 18:00 Last Admin: 04/12/24 12:30 Dose: 5 mg Petrolatum (Butt Paste (Zinc Oxide 16%) 171 Appln/57 Gm Jar) 1 appln EXT BID JOSE Stop: 04/26/24 20:59 Last Admin: 04/12/24 08:10 Dose: Not Given Polyethylene Glycol (Polyethylene (Miralax) 17 Gm Pack) 17 gm PO HS JOSE Stop: 05/08/24 20:59 Last Admin: 04/11/24 20:50 Dose: Not Given Polyethylene Glycol (Polyethylene (Miralax) 17 Gm Pack) 17 gm PO DAILY JO[facility] Stop: 05/12/24 08:59 Last Admin: 04/12/24 08:10 Dose: Not Given Senna/Docusate Sodium (Docusate Sodium/Senna 50/8.6mg Tab) 1 tab PO BID JOSE Stop: 05/08/24 20:59 Last Admin: 04/12/24 08:06 Dose: 1 tab Sodium Chloride (Sodium Chloride 0.65% Na Soln 45 Ml (Barren)) 2 sprays NA TID PRN PRN Reason: Nasal Congestion Stop: 04/27/24 22:01 Last Admin: 03/28/24 22:58 Dose: 2 sprays Sodium Chloride (Sodium Chlor 7% 4 Ml Neb) 4 ml NEB BIDR JOSE Stop: 05/11/24 18:59 Last Admin: 04/12/24 07:12 Dose: 4 ml
[2024-04-13] MEDS: bisacodyL 5 MG TABEC PO ONE (08:52)
[2024-04-13] MEDS: bisacodyL 10 MG SUPP PR STA (12:58)
--- NOTE | 2024-04-13 13:14 | Hospitalist Progress Note ---
Date of Service April 13, 2024 Assessment & Plan (1) Acute hypoxic respiratory failure: (2) Suspected malignant neoplasm of lung: (3) Myoclonic jerking: (4) Acute kidney injury: (5) Lymphadenopathy, mediastinal: (6) SVC obstruction: (7) Paroxysmal atrial fibrillation: (8) Hypokalemia: (9) Mild right ventricular systolic dysfunction: Plan Per previous hospitalist notes with slight changes/addendum: Sheri Camacho is an 83-year-old F with PMHx of HFpEF, A-fib, thoracic aortic aneurysm, HTN, osteoporosis, inflamed seborrheic keratosis, major depressive disorder, tobacco use disorder, aortic valve replacement with bioprosthetic valve who presented to the ED with acute hypoxemic respiratory failure due to suspected lung malignancy and concern for metastatic disease. Acute Hypoxic Respiratory Failure Metastatic Small Cell Carcinoma Large Mediastinal Mass Bilateral Pneumonia Acute Admitting imaging: CXR with asymmetric right hilar mass like enlargement. Cardiomegaly with pulmonary vascular congestion. Left basilar opacity. CTA chest: No PE. Large right hilar/upper lobe mass measuring 10 x 8 cm highly suspicious for primary bronchogenic malignancy. Right anterior diaphragmatic lymphadenopathy representing metastatic disease. 2.1 cm left upper lobe nodule abutting the mediastinum likely representing metastatic disease. Small right pleural effusion suggestive of malignant pleural effusion. CTAP: Negative for metastatic disease. 1.9 cm left adrenal nodule which was likely present on CT of September 25, 2022. Small right pleural effusion. CT head and CTA head/neck: No acute findings. BioFire was NEGATIVE S/P bronchoscopy 03/17/24 with worsening respiratory failure requiring BiPAP. Patient was weaned off of BiPAP and now on oxygen mask. --> Currently 95% SpO2 on 2L. Heme/Onc Evaluation - S/P Cycle 1 of carbo/etoposide (03/18) [carboplatin day 1, etoposide day 1-3]. Completed cycle 2 of chemotherapy treatment 04/07 - 04/09 S/P Neupogen 04/10 Patient to have Mediport placed on Thursday (04/18) with General Surgery per Dr. Lyle's recommendation. --> Will need to hold Eliquis starting THURSDAY AM (04/15). 04/11 --> Pt feeling ill, ? chemo induced vs. concern for developing infection WBC 76k, urine, blood cultures, lactic acid obtained Chest CT: Cardiomegaly and emphysema. 2. A large right upper lobe paramediastinal mass lesion with mediastinal indication a significantly decreased in size as compared to 03/15/2024. Metastatic right cardiophrenic lymphadenopathy has also decreased from previous. 3. Small right and trace left pleural effusions. 4. Patchy airspace opacities in the right lower lobe are nonspecific and may be on an infectious/inflammatory basis. Correlate clinically. Attention at follow-up will be required. 5. An 11 mm left lower lobe nodular opacity is new from previous and may also be inflammatory. Attention at follow-up will be required. 6. A 2.2 cm spiculated lesion in the paramediastinal left upper lobe is unchanged. This remains highly suspicious for neoplasm. Empirically covering w/ IV cefepime and Flagyl Blood culture shows NGTD Urine culture w/ 3 types of organisms present, all low counts probably skin indio 04/13 --> Pt still not feeling great. C/o weakness, fatigue and generalized body aches. -No labs collected today per pt's request to not be stuck so much -Pending Mediport placement on Thursday -No reported fevers, chills -Blood culture shows NGTD -Will continue empiric coverage w/ IV cefepime, Flagyl Pleural Effusions: Acute Admitting imaging: CXR with asymmetric right hilar mass like enlargement. Cardiomegaly with pulmonary vascular congestion. Left basilar opacity. Repeat CXR on 03/31 showed pulmonary vascular congestion, suspected atelectasis Pt now weaned to NC 2 L, was given IV Lasix 40 mg on 04/01 and 04/02 04/06 CXR: Cardiomegaly with pulmonary vascular congestion and unchanged right pleural effusion She was seen and evaluated by Pulm who feels hypoxia in setting of compressive atelectasis due to mass, pleural effusions minimal Takes Bumex twice weekly at home Continue to monitor I&Os Patient does have R>L LE edema give history of history of ankle fractures Was on scheduled nebs, pt is not fond of breathing treatments Switched albuterol nebs to PRN, discontinued hypertonic nebs per pt's request Remain off home diuretic, will continue to hold given softer BPs SVC Syndrome HTN Non-Obstructive CAD Valvular Heart Disease Patient OOB to chair and bathroom HOLD Amlodipine, Losartan due to lower BP Continue ASA Stroke-like symptoms Myoclonic jerks Continue statin, ASA and Eliquis Pancytopenia: Likely due to chemotherapy Per Heme/Onc note, received GCSF on 03/21 Dr. Lyle recommended additional dose of Neupogen 480mcg on 03/30 and 03/31 Pt received GCSF post-chemo on 04/10 WBC improving from 77k on 04/11 --> 33k yesterday, likely in setting of GCSF and underlying infection Normocytic anemia: Chronic, stable Anemia labs: folate/b12 normal; iron 37 and ferritin 58.4 --> C/W iron PO Atrial fibrillation: Continue Eliquis, amiodarone and Lopressor Will need to hold Eliquis beginning THURSDAY AM (04/15) prior to Mediport placement Ascending Aortic Aneurysm Dissection s/p Repair: CTM, BP Control Melatonin HS to aid with sleep Continue gabapentin 300mg BID Dispo: VTE Prophylaxis: On Eliquis Conditional code: Per admitting Dr --> Chest compressions are acceptable, NO intubation Continue to monitor day to day, pt is accepted at [facility]. Was to d/c pt on 04/11, but due to ADR of CHEMO and b/l pneumonia, discharge was postponed. CM will likely need to reapply for auth. So when felt pt is medically stable, please let CM know. Also pt scheduled for Mediport placement this upcoming Thursday (04/18), so if slow to improve, may benefit from continued hospitalization until port placement w/ Gen Surg. Patient's son, Timur, wishes for daily updates. --> #[phone] Patient seen in collaboration with Dr. Gutierrez. Please see addendum. I spent a total of 55 minutes coordinating, documenting, and providing care for this patient excluding time spent in the performance of separately billed services. This included personally reviewing all current laboratories and imaging studies, medical reconciliation, outpatient chart review and discussion with specialists. This chart was completed in part utilizing Speech Voice Recognition Software. Grammatical errors, random word insertions, pronoun errors, and incomplete sent ences are an occasional consequence of this system due to software limitations, ambient noise, and hardware issues. Any formal questions or concerns about the content, text, or information contained within the body of this dictation should be directly addressed to the provider for clarification. CBC w diff, CMP tomorrow AM (04/14) -> Pt with frequent daily lab draws and significant c/o discomfort w/ repeated sticks. Unless medically necessary, will stop doing daily labs from here on out. Admission and Anticipated Discharge Date Admission Date: March 15, 2024 Supervising Physician Co-Signing Physician Notes Patient seen and examined independently. Discussed with above provider. Patient complains of constipation; no bowel movement yet today. She denies any fever, chills, chest pain or shortness of breath. she endorses generalized fatigue Vitals are stable; saturating well in room air. Continue empiric antibiotic Bowel regimen for constipation I have reviewed the advanced practitioner's documentation, and I agree with, and take responsibility for the plan of care I spent a total of 30 minutes coordinating, documenting, and providing care for this patient excluding time spent in the performance of separately billed services. All of the aforementioned completed while collaborating with the assigned advanced practitioner for a full treatment plan Subjective Patient seen at bedside in room W356-2. Patient reports "not feeling the greatest." C/o weakness, fatigue and generalized body aches. She is experiencing some shortness of breath this morning. Currently on 3L O2, SpO2 holding steady ~95% throughout our discussion. Notes some improvement following breathing treatments w/ RT, however she does not particular enjoy her nebulizer treatments. Would like to have her nebulizer treatments on a PRN basis per discussion w/ RT. Patient complains of constipation still. Requested additional bisacodyl this morning. She denies any fever, chills or chest pain at this time. Reports she's already lost most of her hair 2/2 chemotherapy. Patient is still adjusting to coming to terms with her cancer diagnosis. This was a very, very unexpected diagnosis. Patient has a strong family support system. Review of Systems Review of Systems: At least ten systems reviewed and negative, except as noted in the HPI. Physical Exam Physical Exam: General: Vitals as above, NAD, sitting up in bed, ill-appearing. A&O x 3, conversing appropriately. HEENT: Normocephalic, atraumatic. Has lost most her hair. Normal inspection, PERRL, conjunctivae normal, anicteric sclerae, mucous membranes moist. Respiratory: On 3L oxygen via face mask, lungs clear to auscultation. Lung sounds diminished b/l, no accessory muscle use. Cardiovascular: Regular rate, rhythm, no murmur, normal peripheral pulses. RLE trace edema, ankle brace in place. Vessels: No JVD. Abdomen/GI: Normal bowel sounds, soft, nontender, no hepatosplenomegaly. Extremities/Musculoskeletal: No cyanosis or clubbing, extremity motor strength intact. Moves all extremities. Neurologic: EOMI, accommodation nl, no face palsy, no dysarthria, CN's II-XI not formally tested but appear intact bilaterally. Skin: No rashes, normal color, warm/dry. Results & Data Results & Data Vital Signs (Past 12 Hours) Vital Signs Temp Pulse Resp BP Pulse Ox O2 Del Method O2 Flow Rate 04/13/24 10:54 83 18 99 Oxymask 3 04/13/24 07:54 36.7 C 79 16 123/62 99 Oxymask 3 04/13/24 07:35 Oxymask 3 04/13/24 07:06 71 18 96 Oxymask Diagnostic Findings Chest X-Ray 03/15/24 14:08 XR chest 1V portable CLINICAL HISTORY: Dyspnea COMPARISON STUDY: Chest radiograph and chest CT September 25, 2022. FINDINGS: Status post median sternotomy. Mild cardiomegaly is unchanged. Asymmetric right hilar mass-like enlargement is present. Left hilum is normal. There is a trace right pleural effusion. No pneumothorax is present. Pulmonary vascular congestion. Left basilar opacity similar to prior exam and favors atelectasis. IMPRESSION: 1. Asymmetric right hilar mass-like enlargement. Although this could be due to pulmonary vessels, a mass or lymphadenopathy cannot be excluded. Chest CT with contrast is recommended. 2. Cardiomegaly with pulmonary vascular congestion. Trace right pleural effusion. 3. Left basilar opacity which likely reflects atelectasis. ACT 112: Positive. There are findings on this exam that require communication between the performing entity and the patient following Patient Test Result Information Act ([place] Act 112) guidelines. Electronically signed by: Nam Delgado M.D. 03/15/2024 2:42 PM Chest CTA 03/15/24 15:02 CHEST CTA for PULMONARY ARTERIES CT DOSE: 727.07 mGy.cm HISTORY: Shortness of breath. TECHNIQUE: Multiaxial CT images of the chest were performed following the intravenous administration of contrast to evaluate the pulmonary arteries. 3D/Maximal intensity projection images were also obtained. Sagittal and coronal reformations were also reviewed. A dose lowering technique was utilized adhering to the principles of ALARA. COMPARISON STUDY: Chest CTA 09/25/2022. FINDINGS: Postoperative changes consistent with graft repair of an ascending thoracic aortic aneurysm. No evidence for an aortic dissection. 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 This remains unchanged. No filling defects within the pulmonary arteries to suggest a pulmonary embolus. However, there is mass effect within the right central pulmonary arteries due to the mediastinal/hilar mass with moderate narrowing of the right upper lobe pulmonary arteries. The heart is normal in size. There is a small right pleural effusion. No pericardial effusion. Limited views of the upper abdomen demonstrate normal liver and spleen. Right anterior diaphragmatic lymphadenopathy measuring up to 2.2 cm consistent with metastatic disease. A few subcentimeter thyroid nodules. These do not meet CT criteria for follow-up. Normal caliber esophagus. There are poststernotomy changes. No suspicious lytic or blastic osseous lesions. Emphysema. No pneumothorax. The right upper lobe bronchus is opacified/obstructed by the right hilar mass. There is also moderate to severe narrowing of the bronchus intermedius due to an endobronchial component of the right hilar mass. This is best seen image 114. The left central airways are patent. There is a 2.1 cm nodule within the left upper lobe abutting the mediastinum on image 153. This likely represents metastatic disease. Biapical pleural-parenchymal nodular densities remain stable and favor scarring. Small focal peripheral consolidation within the right upper lobe anteriorly may represent a postobstructive pneumonitis. There is been interval development of a large right hilar/upper lobe mass which invades into the mediastinum. This r esults in approximately 75% narrowing of the SVC without evidence for occlusion at this time. This mass extends in to the right paratracheal and subcarinal locations. No left hilar lymphadenopathy. This mass measures approximately 10 x 8 cm and encases multiple right pulmonary arteries and invades into the right upper lobe bronchi and bronchus intermedius. IMPRESSION: 1. No evidence for pulmonary embolus. 2. Interval development of a large right hilar/upper lobe mass measuring 10 x 8 cm described above. This is highly suspicious for a primary bronchogenic malignancy. 3. Right anterior diaphragmatic lymphadenopathy likely represents metastatic disease. 4. There is a 2.1 cm left upper lobe nodule abutting the mediastinum likely representing metastatic disease. 5. Small right pleural effusion which may represent a malignant pleural effusion. 6. This right hilar/upper lobe mass results in mass effect along the right pulmonary arteries as well as invasion into the right upper lobe bronchus and bronchus intermedius as described above. 7. This mass also results in severe narrowing of the SVC without evidence for occlusion at this time. 8. Additional findings as described above. ACT 112: Negative or not required by law. Electronically signed by: Martin Granados M.D. 03/15/2024 5:06 PM Abdomen/Pelvis CT 03/15/24 19:03 CT OF THE ABDOMEN AND PELVIS WITH CONTRAST CLINICAL HISTORY: Evaluate for metastatic disease. COMPARISON STUDY: CTA of the abdomen and pelvis September 25, 2022. Abdominal ultrasound June 22, 2017. TECHNIQUE: Following IV administration of 89 mL of Optiray, axial images of the abdomen and pelvis were obtained from the lung bases to the proximal femurs. Images were reviewed in the axial, sagittal, and coronal planes. IV contrast was administered without complication. Automated exposure control was utilized for the study. A dose lowering technique was utilized adhering to the principles of ALARA. Oral contrast was administered. FINDINGS: A small right pleural effusion is. A 2.8 x 1.9 cm right cardiophrenic angle lymph node on image 42 of 361 is present. There are no suspicious hepatic lesions. 9 mm lateral segment hypodense hepatic lesion is unchanged and CTA of September 25, 2022. This is benign. Spleen, kidneys and pancreas are unremarkable with exception of the left lower pole renal cyst. Left adrenal nodule measures 1.9 cm. Although suboptimally assessed on prior exam, this was likely present on CT of September 25, 2022. Mild nodularity of the right adrenal gland is also likely similar to prior CTA. The infrarenal abdominal aorta is ectatic, measuring 2.9 cm. There is extensive aortoiliac calcified plaque. No abdominal or pelvic lymphadenopathy is present. Prominent left retroperitoneal vessels are unchanged. No evidence for a bowel obstruction. The caliber and wall thickness of small and large bowel are normal. Postoperative findings within the spine are incidentally noted. No suspicious lesions are identified within the visualized skeletal structures. IMPRESSION: 1. No definite evidence for metastatic disease within the abdomen or pelvis. 2. 1.9 cm left adrenal nodule. This was likely present on CT of September 25, 2022. Although likely benign, this could be assessed with a PET/CT as indicated. 3. Pathologic right cardiophrenic angle lymph node. Small right pleural effusion. A malignant effusion cannot be excluded. ACT 112: Negative or not required by law. Electronically signed by: Nam Delgado M.D. 03/16/2024 7:[address] 03/16/24 08:29 CT head/brain wo/w con CT DOSE: 3111.05 mGy.cm CLINICAL HISTORY: Lung cancer. Assess for metastatic disease. TECHNIQUE: Multiaxial CT images of the head were performed both before and after intravenous administration of contrast. A dose lowering technique was utilized adhering to the principles of ALARA. COMPARISON STUDY: None. FINDINGS: Mild mucosal thickening within the ethmoid air cells. There are few opacified right inferior mastoid air cells. Multiple opacified left mastoid air cells are noted. No suspicious lytic or blastic osseous lesions. No calvarial fractures. There is mild motion artifact. The ventricles and sulci are within normal limits. There is no mass, hematoma, midline shift, acute infarct. Postcontrast sequences show no areas of abnormal enhancement. IMPRESSION: No evidence for intracranial metastatic disease. ACT 112: Negative or not required by law. Electronically signed by: Martin Granados M.D. 03/16/2024 4:[address] 03/16/24 21:54 Exam(s): CT HEAD Without Contrast EXAM: CT Head Without Intravenous Contrast CLINICAL HISTORY: Reason for exam: CVA. TECHNIQUE: Axial computed tomography images of the head/brain without intravenous contrast. CTDI is 45.33 mGy and DLP is 677.48 mGy-cm. Automated exposure control was utilized for the study. A dose lowering technique was utilized adhering to the principles of ALARA. COMPARISON: 03/16/2024 FINDINGS: Brain: No hemorrhage, extra-axial fluid collection, mass effect, or edema. Ventricles: Unremarkable. Bones/joints: Unremarkable. No fracture. Soft tissues: Unremarkable. Sinuses: No acute sinusitis. Mastoid air cells: Left mastoid effusion. IMPRESSION: 1. No acute intracranial abnormality. 2. Left mastoid effusion. Electronically signed by: Tom Nguyen MD 03/16/24 22:39 PM Head CTA 03/16/24 21:54 Exam(s): CTA HEAD With Contrast IV Amt: 116 ml opti 320 EXAM: CT Angiography Head With Intravenous Contrast CLINICAL HISTORY: Reason for exam: CVA?. TECHNIQUE: Axial computed tomographic angiography images of the head with intravenous contrast. CTDI is 58.49 mGy and DLP is 624.41 mGy-cm. Automated exposure control was utilized for the study. A dose lowering technique was utilized adhering to the principles of ALARA. MIP reconstructed images were created and reviewed. CONTRAST: Patient received 116 ml opti 320 of IV contrast COMPARISON: No relevant prior studies available. FINDINGS: Right internal carotid artery: No limiting atherosclerotic calcifications within the right ICA. No flow-limiting stenosis. No aneurysm. Right anterior cerebral artery: Unremarkable. No occlusion or significant stenosis. No aneurysm. Right middle cerebral artery: Unremarkable. No occlusion or significant stenosis. No aneurysm. Right posterior cerebral artery: Unremarkable. No occlusion or significant stenosis. No aneurysm. Right vertebral artery: Unremarkable as visualized. Left internal carotid artery: Atherosclerotic calcifications within the left ICA. No flow-limiting stenosis. No aneurysm. Left anterior cerebral artery: Unremarkable. No occlusion or significant stenosis. No aneurysm. Left middle cerebral artery: Unremarkable. No occlusion or significant stenosis. No aneurysm. Left posterior cerebral artery: Unremarkable. No occlusion or significant stenosis. No aneurysm. Left vertebral artery: No flow-limiting atherosclerotic calcifications within the left vertebral artery. Basilar artery: Unremarkable. No occlusion or significant stenosis. No aneurysm. IMPRESSION: No acute findings in the arteries of the head/brain. Electronically signed by: Tom Nguyen MD 03/16/24 22:41 PM Neck CTA 03/16/24 21:54 Exam(s): CTA NECK With Contrast IV Amt: 116 ml opti 320 EXAM: CT Angiography Neck With Intravenous Contrast CLINICAL HISTORY: Reason for exam: CVA?. TECHNIQUE: Routine carotid CT angiography protocol was performed with intravenous contrast. NASCET criteria using the distal ICAs for comparison were used for evaluation of stenoses. CTDI is 64.34 mGy and DLP is 961.59 mGy-cm. Automated exposure control was utilized for the study. A dose lowering technique was utilized adhering to the principles of ALARA. MIP reconstructed images were created and reviewed. CONTRAST: Patient received 116 ml opti 320 of IV contrast COMPARISON: None. FINDINGS: VASCULATURE: Right common carotid artery: Unremarkable. No occlusion or significant stenosis. No dissection. Right internal carotid artery: Atherosclerotic calcifications at the right carotid bulb. No flow-limiting stenosis. Right external carotid artery: Severe stenosis at the ostia of the right external carotid artery. Right vertebral artery: Unremarkable. No occlusion or significant stenosis. No dissection. Left common carotid artery: Unremarkable. No occlusion or significant stenosis. No dissection. Left internal carotid artery: Non flow-limiting atherosclerotic calcifications within the proximal left ICA. Left vertebral artery: Unremarkable. No occlusion or significant stenosis. No dissection. NECK: Bones/joints: Unremarkable. No acute fracture. Soft tissues: Unremarkable. Lung apices: Nodular airspace opacities in the upper lobes and a small right pleural effusion. CAROTID STENOSIS REFERENCE USING NASCET CRITERIA: % ICA stenosis = (1 - narrowest ICA diameter/diameter of distal cervical ICA) x 100. Mild - <50% stenosis. Moderate - 50-69% stenosis. Severe - 70-94% stenosis. Near occlusion - 95-99% stenosis. Occluded - 100% stenosis. IMPRESSION: 1. No flow-limiting stenosis. 2. Nodular airspace opacities in the upper lobes and a small right pleural effusion. Electronically signed by: Tom Nguyen MD 03/16/24 22:43 PM Chest X-Ray 03/17/24 09:01 XR chest 1V portable CLINICAL HISTORY: resp distress TECHNIQUE: Single frontal radiograph of the chest was obtained. Comparison: Comparison is made to chest radiograph 03/15/[address] chest 03/15/2024 FINDINGS: No lines and tubes are seen. Right mediastinal mass is seen, unchanged from prior exam. Airspace opacities are in the right greater than left lower lobe. Small right and trace left pleural effusions are seen. IMPRESSION: 1. Interval increase in small right and trace left pleural effusions with underlying airspace opacities which may represent atelectasis. 2. Again seen is right hilar mass. ACT 112: Negative or not required by law. Electronically signed by: Umesh De Leon M.D. 03/17/2024 9:28 AM Chest X-Ray 03/20/24 11:24 XR chest 1V portable CLINICAL HISTORY: ongoing resp symptoms, r/o effusion TECHNIQUE: Single frontal radiograph of the chest was obtained. Comparison: Comparison is made to chest radiograph 03/17/2024 FINDINGS: Median sternotomy wires are unchanged. Calcified aortic knob is seen. Right hilar mass is seen. Right lower lung airspace opacity is seen compatible with atelectasis. Small right pleural effusion, unchanged. IMPRESSION: 1. Stable small right pleural effusion. Left pleural effusion is more well s een. 2. Right hilar mass is again seen. ACT 112: Negative or not required by law. Electronically signed by: Umesh De Leon M.D. 03/20/2024 12:[address] 03/27/24 20:04 Exam(s): CT HEAD Without Contrast EXAM: CT Head Without Intravenous Contrast CLINICAL HISTORY: Reason for exam: schmid, jerks, eliquis. TECHNIQUE: Axial computed tomography images of the head/brain without intravenous contrast. CTDI is 38.76 mGy and DLP is 547.75 mGy-cm. Automated exposure control was utilized for the study. A dose lowering technique was utilized adhering to the principles of ALARA. COMPARISON: Comparison made to prior head CT from March 16, 2024. FINDINGS: Study is limited secondary to motion artifact. Brain: Unremarkable. No hemorrhage. Mild nonspecific white matter changes. No edema. Ventricles: Mild ventricular megaly. Bones/joints: Unremarkable. No acute fracture. Soft tissues: Unremarkable. Sinuses: Chronic right ethmoid sinusitis with single opacified air cell. No acute sinusitis. Mastoid air cells: There is a large amount of fluid in the left mastoid air cells. No mastoid effusion. IMPRESSION: No evidence of acute intracranial pathology. Electronically signed by: Kamala Perea MD 03/28/24 03:01 AM Chest X-Ray 03/31/24 15:27 XR chest 1V portable HISTORY: 83 years-old Female Eval for edema with hx of valvular disease COMPARISON: 03/20/2024, CTA chest 03/15/2024 TECHNIQUE: AP view of the chest FINDINGS: Cardiac silhouette is enlarged. Median sternotomy. No pneumothorax. Trace left and moderate right pleural effusions are similar to prior. Persistent right perihilar and right basilar consolidation. Decreased size of the large right hilar mass. Mild ill-defined peripheral opacities in the left midlung. Pulmonary vascular congestion. IMPRESSION: 1. Cardiomegaly with pulmonary vascular congestion. 2. Ill-defined peripheral opacities of the left mid lung may be artifactual or represent pneumonia. 3. Moderate right-sided pleural effusion with persistent right basilar consolidation. 4. Large right-sided hilar mass is better seen on the comparison CTA of the chest. ACT 112: Negative or not required by law. The above report was generated using voice recognition software. It may contain grammatical, syntax or spelling errors. Electronically signed by: Jordin Vela M.D. 03/31/2024 4:55 PM Chest X-Ray 04/02/24 07:00 SINGLE VIEW CHEST CLINICAL HISTORY: Follow-up congestive failure. FINDINGS: An AP, portable, upright chest radiograph is compared to study dated 03/31/2024 and correlated with chest CT dated 03/15/2024. The patient is status post midline sternotomy. The heart is enlarged and atherosclerotic calcification of the thoracic aorta. Pulmonary vascular congestion persists emphysema and chronic interstitial thickening is similar to previous. A large mediastinal mass lesion was much better assessed on the recent chest CT. The right and moderate left pleural effusions with dependent consolidation. No pneumothorax is seen. The skeletal structures are osteopenic. The bony thorax is grossly intact. IMPRESSION: 1. Cardiomegaly and emphysema with pulmonary vascular congestion. This is similar to 03/31/2024. 2. Right large left pleural effusions with dependent consolidation. 3. A large mediastinal mass lesion was better assessed on the recent chest CT. ACT 112: Negative or not required by law. Electronically signed by: Manjinder Myers M.D. 04/02/2024 7:14 AM Chest X-Ray 04/06/24 12:35 XR chest 1V portable HISTORY: 83 years-old Female SOB acute shortness of breath COMPARISON: Chest radiograph 04/02/2024, CTA chest 03/15/2024. TECHNIQUE: AP view the chest FINDINGS: Cardiac silhouette is enlarged. Median sternotomy. Layering right pleural effusion with right basilar consolidation redemonstrated, mildly improved. Edema. Pulmonary vascular congestion with interstitial coarsening. Mediastinal mass better seen on prior chest CT. IMPRESSION: 1. Cardiomegaly with pulmonary vascular congestion. 2. Unchanged right pleural effusion with mildly improved right basilar opacities. 3. Mediastinal mass is better assessed on prior chest CT. ACT 112: Negative or not required by law. The above report was generated using voice recognition software. It may contain grammatical, syntax or spelling errors. Electronically signed by: Jordin Vela M.D. 04/06/2024 2:27 PM Chest X-Ray 04/07/24 08:00 XR chest 1V portable CLINICAL HISTORY: SOB/small cell lung CA/pleural effusions COMPARISON STUDY: Chest CT March 15, 2024. Chest radiograph April 06, 2024. FINDINGS: There is no pneumothorax. Small right and trace left pleural effusions are similar to prior exam. Cardiomediastinal silhouette is stable. The mediastinal mass has decreased in size since chest CT of March 15, 2024. Slight asymmetric right hilar enlargement. There is pulmonary vascular congestion. This is unchanged. No consolidation is identified to suggest pneumonia. IMPRESSION: 1. Pulmonary vascular congestion, similar to prior exam. 2. No change in small right and trace left pleural effusions. ACT 112: Negative or not required by law. Electronically signed by: Nam Delgado M.D. 04/07/2024 7:[address] 04/11/24 10:23 CT SCAN OF THE CHEST WITHOUT IV CONTRAST CLINICAL HISTORY: Cough. Dyspnea. History of lung cancer. COMPARISON STUDY: Chest x-ray dated 04/07/2024. Prior chest CT scans, most recently dated 03/15/2024. TECHNIQUE: CT scan of the thorax was performed from the thoracic inlet to the upper abdomen. Images are reviewed in the axial, sagittal, and coronal planes. IV contrast was not administered for this examination as per the referring clinician. A dose lowering technique was utilized adhering to the principles of ALARA. CT DOSE: 274.29 mGy.cm FINDINGS: Thyroid: Enlarged and heterogeneous indicating goiter. Thoracic aorta: Postsurgical changes seen at the aortic root. There is advanced atherosclerotic calcification of the thoracic aorta. 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 This measures up to 4.7 cm in diameter. The remainder of the thoracic aorta is normal in caliber comment heart demonstrates standard 3-vessel anatomy. Heart: The patient is status post midline sternotomy. The heart is enlarged and without pericardial effusion. The coronary arteries are densely calcified. There is diminished attenuation of the cardiac blood pool as compared to the myocardium suggesting anemia. Lungs and pleural spaces: Moderately advanced emphysematous changes again noted. There are small right and trace left pleural effusions with dependent atelectasis. Patchy airspace opacities are seen in the right lower lobe. The trachea is clear. Secretions are noted in the left mainstem bronchus. A right upper lobe paramediastinal mass lesion with mediastinal invasion has significantly decreased in size from 03/15/2024. This now measures approximately 7 x 4 cm in maximum axial dimension. A 2.2 cm spiculated mass is again seen in the paramediastinal left upper lobe on image #59. This is similar to previous. A 4 mm right middle lobe nodule on image #145 is unchanged. An 11 mm nodular opacity is clearly seen previously. Foci of parenchymal scarring are seen throughout both lungs. Mediastinum: As noted above a right paramediastinal mass invades the right aspect of the mediastinum. Ilda: Not well assessed without IV contrast. Axillae: There is no axillary lymphadenopathy. Upper abdomen: Right cardiophrenic lymphadenopathy has decreased in size from previous. The largest node on image #194 now measures up to 1.3 cm. Partially visualized upper abdominal viscera is otherwise within normal limits. Skeletal structures: The skeletal structures are osteopenic. Degenerative change and kyphoscoliosis is noted in the spine. No lytic or blastic bony lesions are seen. IMPRESSION: 1. Cardiomegaly and emphysema. 2. A large right upper lobe paramediastinal mass lesion with mediastinal indication a significantly decreased in size as compared to 03/15/2024. Metastatic right cardiophrenic lymphadenopathy has also decreased from previous. 3. Small right and trace left pleural effusions. 4. Patchy airspace opacities in the right lower lobe are nonspecific and may be on an infectious/inflammatory basis. Correlate clinically. Attention at follow- up will be required. 5. An 11 mm left lower lobe nodular opacity is new from previous and may also be inflammatory. Attention at follow-up will be required. 6. A 2.2 cm spiculated lesion in the paramediastinal left upper lobe is unchanged. This remains highly suspicious for neoplasm. 7. Additional findings as above. ACT 112: Negative or not required by law. Electronically signed by: Manjinder Myers M.D. 04/11/2024 2:[address] 04/12/24 11:36 CT SCAN OF THE BRAIN WITHOUT IV CONTRAST CLINICAL HISTORY: Headache. COMPARISON STUDY: CT of the brain dated 03/27/2024. TECHNIQUE: Unenhanced axial CT scan of the brain is performed from the vertex to the skull base. A dose lowering technique was utilized adhering to the principles of ALARA. CT DOSE: 625.8 mGy.cm FINDINGS: Brain parenchyma: There is age-related involutional change noting mild subcortical and periventricular microangiopathic disease. There is no hemorrhage, mass effect, or evidence of acute territorial ischemia by CT criteria. Childress-white matter differentiation is preserved. No extra-axial fluid collection is seen. Ventricles, sulci, cisterns: Prominent secondary to involutional change. Intracranial vasculature: There is atherosclerotic calcification of the cavernous carotid and vertebral arteries. Calvarium: Unremarkable. Sinuses and mastoids: There is mucosal thickening within the right posterior ethmoid sinuses. The remaining visualized paranasal sinuses are clear. There is a large left mastoid effusion. A small amount of effusion is seen on the right. Orbits: The bony orbits are grossly intact. There are bilateral ocular lens implants. IMPRESSION: 1. There is no hemorrhage, mass effect, or evidence of acute territorial ischemia by CT criteria. 2. Left larger than right mastoid effusions are similar to previous. ACT 112: Negative or not required by law. Electronically signed by: Manjinder Myers M.D. 04/12/2024 1:12 PM Medications Administered Acetaminophen (Acetaminophen 500 Mg Tab) 1,000 mg PO TID PRN PRN Reason: Pain or Fever Stop: 04/14/24 20:33 Last Admin: 04/13/24 08:13 Dose: 1,000 mg Documented By: Admin: 04/12/24 13:32 Dose: 1,000 mg Documented By: Admin: 04/12/24 04:32 Dose: 1,000 mg Documented By: Admin: 04/11/24 08:00 Dose: 1,000 mg Documented By: Admin: 04/10/24 15:20 Dose: 1,000 mg Documented By: Admin: 04/09/24 03:24 Dose: 1,000 mg Documented By: Admin: 04/07/24 23:20 Dose: 1,000 mg Documented By: Admin: 04/07/24 00:23 Dose: 1,000 mg Documented By: Admin: 04/05/24 22:32 Dose: 1,000 mg Documented By: CRH Albuterol (Albuterol Hfa 8 Gm Inhaler) 2 puffs INH Q4 PRN PRN Reason: shortness of breath or wheezin Stop: 04/14/24 20:33 Last Admin: 04/11/24 20:47 Dose: 2 puffs Documented By: Admin: 04/07/24 08:06 Dose: 2 puffs Documented By: Admin: 04/06/24 22:13 Dose: 2 puffs Documented By: Admin: 04/05/24 22:50 Dose: 2 puffs Documented By: Admin: 04/05/24 18:13 Dose: 2 puffs Documented By: Admin: 04/04/24 22:39 Dose: 2 puffs Documented By: Admin: 04/03/24 23:30 Dose: 2 puffs Documented By: Admin: 04/03/24 16:10 Dose: 2 puffs Documented By: Admin: 04/02/24 21:56 Dose: 2 puffs Documented By: Admin: 04/02/24 04:59 Dose: 2 puffs Documented By: Admin: 04/01/24 21:03 Dose: 2 puffs Documented By: Admin: 03/31/24 22:18 Dose: 2 puffs Documented By: Admin: 03/31/24 16:43 Dose: 2 puffs Documented By: Admin: 03/31/24 04:01 Dose: 2 puffs Documented By: Admin: 03/30/24 21:54 Dose: 2 puffs Documented By: Admin: 03/29/24 14:17 Dose: 2 puffs Documented By: EML(2) Admin: 03/29/24 05:05 Dose: 2 puffs Documented By: Admin: 03/29/24 00:01 Dose: 2 puffs Documented By: Admin: 03/28/24 19:37 Dose: 2 puffs Documented By: Admin: 03/27/24 23:22 Dose: 2 puffs Documented By: Admin: 03/27/24 18:32 Dose: 2 puffs Documented By: Admin: 03/26/24 23:51 Dose: 2 puffs Documented By: Admin: 03/25/24 20:42 Dose: 2 puffs Documented By: ARPIT(2) Admin: 03/25/24 05:49 Dose: 2 puffs Documented By: Admin: 03/24/24 04:48 Dose: 2 puffs Documented By: Admin: 03/23/24 20:25 Dose: 2 puffs Documented By: Admin: 03/20/24 22:28 Dose: 2 puffs Documented By: Admin: 03/20/24 00:50 Dose: 2 puffs Documented By: Admin: 03/19/24 19:59 Dose: 2 puffs Documented By: Admin: 03/19/24 05:08 Dose: 2 puffs Documented By: Admin: 03/17/24 21:16 Dose: 2 puffs Documented By: BWT Amiodarone HCl (Amiodarone 200 Mg Tab) 200 mg PO DAILY JOSE Stop: 04/15/24 08:59 Last Admin: 04/13/24 08:53 Dose: 200 mg Documented By: Admin: 04/12/24 08:05 Dose: 200 mg Documented By: Admin: 04/11/24 08:00 Dose: 200 mg Documented By: Admin: 04/10/24 08:51 Dose: 200 mg Documented By: Admin: 04/09/24 08:34 Dose: 200 mg Documented By: Admin: 04/08/24 09:12 Dose: 200 mg Documented By: Admin: 04/07/24 08:12 Dose: 200 mg Documented By: Admin: 04/06/24 08:28 Dose: 200 mg Documented By: Admin: 04/05/24 09:04 Dose: 200 mg Documented By: Admin: 04/04/24 08:10 Dose: 200 mg Documented By: Admin: 04/03/24 07:30 Dose: 200 mg Documented By: Admin: 04/02/24 09:18 Dose: 200 mg Documented By: Admin: 04/01/24 09:19 Dose: 200 mg Documented By: Admin: 03/31/24 07:47 Dose: 200 mg Documented By: Admin: 03/30/24 08:24 Dose: 200 mg Documented By: Admin: 03/29/24 08:25 Dose: 200 mg Documented By: RRCassia Admin: 03/28/24 08:14 Dose: 200 mg Documented By: Admin: 03/27/24 08:00 Dose: 200 mg Documented By: Admin: 03/26/24 08:19 Dose: 200 mg Documented By: Admin: 03/25/24 11:30 Dose: 200 mg Documented By: Admin: 03/24/24 08:27 Dose: 200 mg Documented By: Admin: 03/23/24 08:11 Dose: 200 mg Documented By: Admin: 03/22/24 08:01 Dose: 200 mg Documented By: Admin: 03/21/24 09:04 Dose: 200 mg Documented By: Admin: 03/20/24 10:27 Dose: 200 mg Documented By: Admin: 03/19/24 09:40 Dose: 200 mg Documented By: Admin: 03/18/24 07:24 Dose: 200 mg Documented By: Admin: 03/17/24 13:19 Dose: Not Given Documented By: Admin: 03/16/24 08:04 Dose: 200 mg Documented By: OAC Amlodipine Besylate (Amlodipine Besylate 5 Mg Tab) 2.5 mg PO QAM [facility] Stop: 04/21/24 08:59 Last Admin: 04/11/24 08:01 Dose: 2.5 mg Documented By: Admin: 04/10/24 08:51 Dose: 2.5 mg Documented By: Admin: 04/09/24 08:33 Dose: 2.5 mg Documented By: Admin: 04/08/24 09:13 Dose: 2.5 mg Documented By: Admin: 04/07/24 08:12 Dose: 2.5 mg Documented By: Admin: 04/06/24 08:28 Dose: 2.5 mg Documented By: Admin: 04/05/24 09:02 Dose: 2.5 mg Documented By: Admin: 04/04/24 08:09 Dose: 2.5 mg Documented By: Admin: 04/03/24 07:31 Dose: 2.5 mg Documented By: Admin: 04/02/24 09:17 Dose: 2.5 mg Documented By: Admin: 04/01/24 09:19 Dose: 2.5 mg Documented By: Admin: 03/31/24 07:47 Dose: 2.5 mg Documented By: Admin: 03/30/24 08:25 Dose: 2.5 mg Documented By: Admin: 03/29/24 08:25 Dose: 2.5 mg Documented By: Admin: 03/28/24 08:14 Dose: 2.5 mg Documented By: Admin: 03/27/24 08:00 Dose: 2.5 mg Documented By: Admin: 03/26/24 08:19 Dose: 2.5 mg Documented By: Admin: 03/25/24 09:18 Dose: 2.5 mg Documented By: Admin: 03/24/24 08:26 Dose: 2.5 mg Documented By: Admin: 03/23/24 08:09 Dose: 2.5 mg Documented By: NIKOLAI Apixaban (Apixaban 5 Mg Tablet) 5 mg PO BID JOSE Stop: 04/17/24 20:59 Last Admin: 04/13/24 08:53 Dose: 5 mg Documented By: Admin: 04/12/24 20:33 Dose: 5 mg Documented By: Admin: 04/12/24 08:06 Dose: 5 mg Documented By: Admin: 04/11/24 20:47 Dose: 5 mg Documented By: Admin: 04/11/24 08:02 Dose: 5 mg Documented By: Admin: 04/10/24 20:31 Dose: 5 mg Documented By: Admin: 04/10/24 08:50 Dose: 5 mg Documented By: Admin: 04/09/24 20:51 Dose: 5 mg Documented By: Admin: 04/09/24 08:33 Dose: 5 mg Documented By: Admin: 04/08/24 20:26 Dose: 5 mg Documented By: Admin: 04/08/24 09:11 Dose: 5 mg Documented By: Admin: 04/07/24 21:35 Dose: 5 mg Documented By: Admin: 04/07/24 08:11 Dose: 5 mg Documented By: Admin: 04/06/24 20:26 Dose: 5 mg Documented By: Admin: 04/06/24 08:29 Dose: 5 mg Documented By: Admin: 04/05/24 20:39 Dose: 5 mg Documented By: Admin: 04/05/24 09:04 Dose: 5 mg Documented By: Admin: 04/04/24 20:03 Dose: 5 mg Documented By: Admin: 04/04/24 08:09 Dose: 5 mg Documented By: Admin: 04/03/24 21:34 Dose: 5 mg Documented By: Admin: 04/03/24 07:29 Dose: 5 mg Documented By: Admin: 04/02/24 20:56 Dose: 5 mg Documented By: Admin: 04/02/24 09:18 Dose: 5 mg Documented By: Admin: 04/01/24 20:24 Dose: 5 mg Documented By: Admin: 03/31/24 21:15 Dose: 5 mg Documented By: Admin: 03/31/24 07:48 Dose: 5 mg Documented By: Admin: 03/30/24 20:35 Dose: 5 mg Documented By: JPUmesh Admin: 03/30/24 08:24 Dose: 5 mg Documented By: Admin: 03/29/24 20:19 Dose: 5 mg Documented By: Admin: 03/29/24 08:26 Dose: 5 mg Documented By: Admin: 03/28/24 21:38 Dose: 5 mg Documented By: Admin: 03/28/24 08:14 Dose: 5 mg Documented By: Admin: 03/26/24 20:09 Dose: 5 mg Documented By: Admin: 03/26/24 08:19 Dose: 5 mg Documented By: Admin: 03/25/24 20:45 Dose: 5 mg Documented By: CRH(2) Admin: 03/25/24 09:19 Dose: 5 mg Documented By: Admin: 03/24/24 20:25 Dose: 5 mg Documented By: Admin: 03/24/24 08:30 Dose: 5 mg Documented By: Admin: 03/23/24 20:08 Dose: 5 mg Documented By: Admin: 03/23/24 08:11 Dose: 5 mg Documented By: Admin: 03/22/24 21:00 Dose: 5 mg Documented By: Admin: 03/22/24 08:01 Dose: 5 mg Documented By: Admin: 03/21/24 21:34 Dose: 5 mg Documented By: JTM(2) Admin: 03/21/24 09:04 Dose: 5 mg Documented By: Admin: 03/20/24 21:18 Dose: 5 mg Documented By: Admin: 03/20/24 10:27 Dose: 5 mg Documented By: Admin: 03/19/24 20:55 Dose: 5 mg Documented By: Admin: 03/19/24 09:39 Dose: 5 mg Documented By: Admin: 03/18/24 20:10 Dose: 5 mg Documented By: SHAUNA(2) Aspirin (Aspirin 81 Mg Ectab) 81 mg PO QAM JOSE Stop: 04/18/24 08:59 Last Admin: 04/13/24 08:53 Dose: 81 mg Documented By: Admin: 04/12/24 08:06 Dose: 81 mg Documented By: RRCassia Admin: 04/11/24 08:02 Dose: 81 mg Documented By: Admin: 04/10/24 08:50 Dose: 81 mg Documented By: Admin: 04/09/24 08:34 Dose: 81 mg Documented By: Admin: 04/08/24 09:13 Dose: 81 mg Documented By: Admin: 04/07/24 08:13 Dose: 81 mg Documented By: Admin: 04/06/24 08:28 Dose: 81 mg Documented By: Admin: 04/05/24 09:04 Dose: 81 mg Documented By: Admin: 04/04/24 09:17 Dose: 81 mg Documented By: Admin: 04/03/24 07:31 Dose: 81 mg Documented By: Admin: 04/02/24 09:19 Dose: 81 mg Documented By: Admin: 04/01/24 09:19 Dose: 81 mg Documented By: Admin: 03/31/24 07:48 Dose: 81 mg Documented By: Admin: 03/30/24 08:24 Dose: 81 mg Documented By: Admin: 03/29/24 08:26 Dose: 81 mg Documented By: Admin: 03/28/24 08:13 Dose: 81 mg Documented By: Admin: 03/26/24 08:18 Dose: 81 mg Documented By: Admin: 03/25/24 09:18 Dose: 81 mg Documented By: Admin: 03/24/24 08:28 Dose: 81 mg Documented By: Admin: 03/23/24 08:09 Dose: 81 mg Documented By: Admin: 03/22/24 08:01 Dose: 81 mg Documented By: Admin: 03/21/24 09:04 Dose: 81 mg Documented By: Admin: 03/20/24 10:27 Dose: 81 mg Documented By: Admin: 03/19/24 09:39 Dose: 81 mg Documented By: DTT Atorvastatin Calcium (Atorvastatin 40 Mg Tab) 40 mg PO HS JOSE Stop: 04/16/24 20:59 Last Admin: 04/12/24 20:33 Dose: 40 mg Documented By: Admin: 04/11/24 20:47 Dose: 40 mg Documented By: Admin: 04/10/24 20:31 Dose: 40 mg Documented By: MJUmesh Admin: 04/09/24 20:51 Dose: 40 mg Documented By: MJUmesh Admin: 04/08/24 20:26 Dose: 40 mg Documented By: Admin: 04/07/24 21:34 Dose: 40 mg Documented By: Admin: 04/06/24 20:26 Dose: 40 mg Documented By: Admin: 04/05/24 20:39 Dose: 40 mg Documented By: Admin: 04/04/24 20:04 Dose: 40 mg Documented By: Admin: 04/03/24 21:30 Dose: 40 mg Documented By: Admin: 04/02/24 20:56 Dose: 40 mg Documented By: Admin: 04/01/24 20:27 Dose: 40 mg Documented By: Admin: 03/31/24 21:15 Dose: 40 mg Documented By: Admin: 03/30/24 20:35 Dose: 40 mg Documented By: Admin: 03/29/24 20:19 Dose: 40 mg Documented By: Admin: 03/28/24 21:38 Dose: 40 mg Documented By: Admin: 03/27/24 21:13 Dose: 40 mg Documented By: Admin: 03/26/24 20:09 Dose: 40 mg Documented By: Admin: 03/25/24 20:43 Dose: 40 mg Documented By: CRH(2) Admin: 03/24/24 20:25 Dose: 40 mg Documented By: Admin: 03/23/24 20:07 Dose: 40 mg Documented By: Admin: 03/22/24 21:00 Dose: 40 mg Documented By: Admin: 03/21/24 21:35 Dose: 40 mg Documented By: PRASAD(2) Admin: 03/20/24 21:17 Dose: 40 mg Documented By: Admin: 03/19/24 20:53 Dose: 40 mg Documented By: Admin: 03/18/24 20:11 Dose: 40 mg Documented By: SHAUNA(2) Admin: 03/17/24 21:37 Dose: 40 mg Documented By: NAV Buspirone HCl (Buspirone 5 Mg Tab) 10 mg PO HS JOSE Stop: 04/14/24 20:59 Last Admin: 04/12/24 20:34 Dose: 10 mg Documented By: Admin: 04/11/24 20:46 Dose: 10 mg Documented By: Admin: 04/10/24 20:31 Dose: 10 mg Documented By: MJUmesh Admin: 04/09/24 20:51 Dose: 10 mg Documented By: MJUmesh Admin: 04/08/24 20:26 Dose: 10 mg Documented By: MJUmesh Admin: 04/07/24 21:34 Dose: 10 mg Documented By: Admin: 04/06/24 20:26 Dose: 10 mg Documented By: Admin: 04/05/24 20:39 Dose: 10 mg Documented By: Admin: 04/04/24 20:04 Dose: 10 mg Documented By: Admin: 04/03/24 21:30 Dose: 10 mg Documented By: Admin: 04/02/24 20:57 Dose: 10 mg Documented By: Admin: 04/01/24 20:27 Dose: 10 mg Documented By: Admin: 03/31/24 21:16 Dose: 10 mg Documented By: Admin: 03/30/24 20:35 Dose: 10 mg Documented By: JPUmesh Admin: 03/29/24 20:19 Dose: 10 mg Documented By: Admin: 03/28/24 21:38 Dose: 10 mg Documented By: Admin: 03/27/24 21:13 Dose: 10 mg Documented By: Admin: 03/26/24 20:09 Dose: 10 mg Documented By: Admin: 03/25/24 20:45 Dose: 10 mg Documented By: CRH(2) Admin: 03/24/24 20:25 Dose: 10 mg Documented By: Admin: 03/23/24 20:09 Dose: 10 mg Documented By: Admin: 03/22/24 21:01 Dose: 10 mg Documented By: Admin: 03/21/24 21:34 Dose: 10 mg Documented By: JTM(2) Admin: 03/20/24 21:18 Dose: 10 mg Documented By: Admin: 03/19/24 20:54 Dose: 10 mg Documented By: Admin: 03/18/24 20:13 Dose: 10 mg Documented By: KS(2) Admin: 03/17/24 21:35 Dose: 10 mg Documented By: Admin: 03/16/24 23:05 Dose: 10 mg Documented By: Admin: 03/15/24 21:54 Dose: 10 mg Documented By: KAYE Ferrous Sulfate (Ferrous Sulfate 325 Mg Tab) 325 mg PO QAM JOSE Stop: 04/24/24 08:59 Last Admin: 04/13/24 08:52 Dose: 325 mg Documented By: Admin: 04/12/24 08:06 Dose: 325 mg Documented By: Admin: 04/11/24 08:02 Dose: 325 mg Documented By: Admin: 04/10/24 08:51 Dose: 325 mg Documented By: Admin: 04/09/24 08:34 Dose: 325 mg Documented By: Admin: 04/08/24 09:13 Dose: 325 mg Documented By: Admin: 04/07/24 08:13 Dose: 325 mg Documented By: Admin: 04/06/24 08:28 Dose: 325 mg Documented By: Admin: 04/05/24 09:05 Dose: 325 mg Documented By: Admin: 04/04/24 08:09 Dose: 325 mg Documented By: Admin: 04/03/24 07:30 Dose: 325 mg Documented By: Admin: 04/02/24 09:19 Dose: 325 mg Documented By: Admin: 04/01/24 09:19 Dose: 325 mg Documented By: Admin: 03/31/24 07:47 Dose: 325 mg Documented By: SLIlana Admin: 03/30/24 08:25 Dose: 325 mg Documented By: Admin: 03/29/24 08:39 Dose: 325 mg Documented By: Admin: 03/28/24 08:14 Dose: 325 mg Documented By: Admin: 03/27/24 08:00 Dose: 325 mg Documented By: Admin: 03/26/24 08:18 Dose: 325 mg Documented By: Admin: 03/25/24 09:19 Dose: 325 mg Documented By: MICHELLE Fluticasone Propionate (Fluticasone Propionate Na Spr 16 Gm Btl) 1 sprays NA HS JOSE Stop: 05/04/24 20:59 Last Admin: 04/12/24 20:34 Dose: 1 sprays Documented By: Admin: 04/11/24 20:47 Dose: 1 sprays Documented By: Admin: 04/10/24 20:31 Dose: 1 sprays Documented By: Admin: 04/09/24 20:51 Dose: 1 sprays Documented By: Admin: 04/08/24 20:26 Dose: 1 sprays Documented By: Admin: 04/07/24 21:35 Dose: 1 sprays Documented By: Admin: 04/06/24 20:28 Dose: 1 sprays Documented By: Admin: 04/05/24 20:40 Dose: 1 sprays Documented By: Admin: 04/04/24 20:08 Dose: 1 sprays Documented By: [email or web address] Furosemide (Furosemide 40 Mg/4 Ml Vial) 40 mg IV QAM JOSE Stop: 05/02/24 08:59 Last Admin: 04/02/24 09:26 Dose: 40 mg Documented By: ADÁN Gabapentin (Gabapentin 600 Mg Tab) 600 mg PO DAILY@0900,1700 JOSE Stop: 05/08/24 16:59 Last Admin: 04/13/24 08:52 Dose: 600 mg Documented By: Admin: 04/12/24 18:26 Dose: 600 mg Documented By: Admin: 04/12/24 08:06 Dose: 600 mg Documented By: Admin: 04/11/24 16:48 Dose: 600 mg Documented By: Admin: 04/11/24 08:02 Dose: 600 mg Documented By: Admin: 04/10/24 16:55 Dose: 600 mg Documented By: Admin: 04/10/24 08:50 Dose: 600 mg Documented By: Admin: 04/09/24 16:51 Dose: 600 mg Documented By: Admin: 04/09/24 08:34 Dose: 600 mg Documented By: Admin: 04/08/24 17:21 Dose: 600 mg Documented By: CMV Gabapentin (Gabapentin 300 Mg Cap) 300 mg PO DAILY@1200,2100 JOSE Stop: 05/08/24 11:59 Last Admin: 04/13/24 12:06 Dose: 300 mg Documented By: Admin: 04/12/24 22:09 Dose: 300 mg Documented By: Admin: 04/12/24 11:26 Dose: 300 mg Documented By: Admin: 04/11/24 20:47 Dose: 300 mg Documented By: Admin: 04/11/24 11:20 Dose: 300 mg Documented By: Admin: 04/10/24 20:31 Dose: 300 mg Documented By: Admin: 04/10/24 12:29 Dose: 300 mg Documented By: Admin: 04/09/24 20:51 Dose: 300 mg Documented By: Admin: 04/09/24 11:49 Dose: 300 mg Documented By: Admin: 04/08/24 20:26 Dose: 300 mg Documented By: Admin: 04/08/24 13:48 Dose: 300 mg Documented By: CMV Guaifenesin (Guaifenesin 600 Mg Tabcr) 600 mg PO Q12 JOSE Stop: 05/11/24 20:59 Last Admin: 04/13/24 08:52 Dose: 600 mg Documented By: Admin: 04/12/24 20:34 Dose: 600 mg Documented By: Admin: 04/12/24 08:06 Dose: 600 mg Documented By: Admin: 04/11/24 20:46 Dose: 600 mg Documented By: ARPIT Hydroxyzine HCl (Hydroxyzine Hcl 10 Mg Tab) 10 mg PO QID PRN PRN Reason: Anxiety Stop: 04/28/24 05:03 Last Admin: 04/09/24 11:07 Dose: 10 mg Documented By: Admin: 04/08/24 10:57 Dose: 10 mg Documented By: Admin: 04/07/24 09:40 Dose: 10 mg Documented By: Admin: 04/06/24 08:26 Dose: 10 mg Documented By: Admin: 04/01/24 20:58 Dose: 10 mg Documented By: Admin: 03/31/24 07:47 Dose: 10 mg Documented By: Admin: 03/30/24 08:26 Dose: 10 mg Documented By: Admin: 03/29/24 05:28 Dose: 10 mg Documented By: HUMBERTO Ondansetron HCl 6 mg/ Dextrose 53 mls @ 200 mls/hr IV Q6H PRN PRN Reason: Nausea And Vomiting - 1st line Stop: 04/20/24 08:17 Last Infusion: 04/11/24 14:36 Dose: Infused Documented By: Admin: 04/11/24 14:10 Dose: 200 mls/hr Documented By: TARA Cefepime HCl 2,000 mg/ Syringe 20 mls @ 5 mls/min IV Q8H JOSE; Protocol Stop: 04/18/24 10:59 Last Admin: 04/13/24 11:23 Dose: 5 mls/min Documented By: Admin: 04/13/24 03:00 Dose: 5 mls/min Documented By: Admin: 04/12/24 18:16 Dose: 5 mls/min Documented By: Admin: 04/12/24 11:23 Dose: 5 mls/min Documented By: Admin: 04/12/24 02:15 Dose: 5 mls/min Documented By: Admin: 04/11/24 18:43 Dose: 5 mls/min Documented By: Admin: 04/11/24 11:07 Dose: 5 mls/min Documented By: TARA Metronidazole (Flagyl) 500 mg in 100 mls @ 100 mls/hr IV Q8H JOSE; Protocol Stop: 04/18/24 14:59 Last Infusion: 04/13/24 16:38 Dose: Infused Documented By: Admin: 04/13/24 15:38 Dose: 100 mls/hr Documented By: Infusion: 04/13/24 07:02 Dose: Infused Documented By: Admin: 04/13/24 06:02 Dose: 100 mls/hr Documented By: Infusion: 04/12/24 23:38 Dose: Infused Documented By: Admin: 04/12/24 22:11 Dose: 100 mls/hr Documented By: Infusion: 04/12/24 16:25 Dose: Infused Documented By: Admin: 04/12/24 15:15 Dose: 100 mls/hr Documented By: Infusion: 04/12/24 07:26 Dose: Infused Documented By: Admin: 04/12/24 06:30 Dose: 100 mls/hr Documented By: Infusion: 04/11/24 23:31 Dose: Infused Documented By: Admin: 04/11/24 22:30 Dose: 100 mls/hr Documented By: Infusion: 04/11/24 16:47 Dose: Infused Documented By: LMUmesh Admin: 04/11/24 15:45 Dose: 100 mls/hr Documented By: TARA Loratadine (Loratadine 10 Mg Tab) 10 mg PO QAM JOSE Stop: 04/28/24 14:44 Last Admin: 04/13/24 08:53 Dose: 10 mg Documented By: Admin: 04/12/24 08:06 Dose: 10 mg Documented By: Admin: 04/11/24 08:02 Dose: 10 mg Documented By: Admin: 04/10/24 08:50 Dose: 10 mg Documented By: Admin: 04/09/24 08:32 Dose: 10 mg Documented By: Admin: 04/08/24 09:13 Dose: 10 mg Documented By: Admin: 04/07/24 08:14 Dose: 10 mg Documented By: Admin: 04/06/24 08:28 Dose: 10 mg Documented By: Admin: 04/05/24 09:04 Dose: 10 mg Documented By: Admin: 04/04/24 08:09 Dose: 10 mg Documented By: Admin: 04/03/24 07:31 Dose: 10 mg Documented By: Admin: 04/02/24 09:19 Dose: 10 mg Documented By: Admin: 04/01/24 09:19 Dose: 10 mg Documented By: Admin: 03/31/24 07:47 Dose: 10 mg Documented By: Admin: 03/30/24 07:15 Dose: 10 mg Documented By: Admin: 03/29/24 15:23 Dose: 10 mg Documented By: ROYA Lorazepam (Lorazepam 0.5 Mg Tab) 0.5 mg PO Q6 PRN PRN Reason: Anxiety Stop: 04/14/24 20:33 Last Admin: 04/13/24 02:01 Dose: 0.5 mg Documented By: Admin: 04/11/24 13:40 Dose: 0.5 mg Documented By: Admin: 04/11/24 02:12 Dose: 0.5 mg Documented By: Admin: 03/20/24 00:31 Dose: 0.5 mg Documented By: Admin: 03/19/24 04:48 Dose: 0.5 mg Documented By: SHAUNA(2) Admin: 03/18/24 21:15 Dose: 0.5 mg Documented By: SHAUNA(2) Admin: 03/18/24 12:47 Dose: 0.5 mg Documented By: Admin: 03/18/24 03:32 Dose: 0.5 mg Documented By: NAV Losartan Potassium (Losartan Potassium 50 Mg Tab) 100 mg PO HS JOSE Stop: 04/14/24 20:59 Last Admin: 04/06/24 20:27 Dose: 100 mg Documented By: Admin: 04/05/24 20:38 Dose: 100 mg Documented By: Admin: 04/04/24 20:04 Dose: 100 mg Documented By: Admin: 04/03/24 21:32 Dose: 100 mg Documented By: Admin: 04/02/24 20:58 Dose: 100 mg Documented By: Admin: 04/01/24 20:27 Dose: 100 mg Documented By: Admin: 03/31/24 21:16 Dose: 100 mg Documented By: Admin: 03/30/24 20:35 Dose: 100 mg Documented By: Admin: 03/29/24 20:19 Dose: 100 mg Documented By: Admin: 03/28/24 21:38 Dose: 100 mg Documented By: Admin: 03/27/24 21:13 Dose: 100 mg Documented By: MMChika Admin: 03/26/24 20:09 Dose: 100 mg Documented By: Admin: 03/25/24 20:44 Dose: 100 mg Documented By: CRH(2) Admin: 03/24/24 20:25 Dose: 100 mg Documented By: Admin: 03/23/24 20:11 Dose: 100 mg Documented By: Admin: 03/22/24 21:02 Dose: 100 mg Documented By: Admin: 03/21/24 21:36 Dose: 100 mg Documented By: PRASAD(2) Admin: 03/20/24 21:19 Dose: 100 mg Documented By: Admin: 03/19/24 20:54 Dose: 100 mg Documented By: Admin: 03/18/24 20:11 Dose: 100 mg Documented By: SHAUNA(2) Admin: 03/17/24 21:36 Dose: 100 mg Documented By: Admin: 03/16/24 23:06 Dose: 100 mg Documented By: Admin: 03/15/24 21:55 Dose: 100 mg Documented By: KAYE Magnesium Hydroxide (Magnesium Hydroxide Susp 30 Ml Udc) 30 ml PO Q12H PRN PRN Reason: Constipation Stop: 04/14/24 20:33 Last Admin: 04/12/24 22:14 Dose: 30 ml Documented By: Admin: 04/12/24 08:06 Dose: 30 ml Documented By: Admin: 04/11/24 22:30 Dose: 30 ml Documented By: Admin: 04/10/24 20:30 Dose: 30 ml Documented By: Admin: 04/09/24 20:51 Dose: 30 ml Documented By: Admin: 04/08/24 20:26 Dose: 30 ml Documented By: Admin: 04/06/24 18:47 Dose: 30 ml Documented By: Admin: 04/02/24 22:32 Dose: 30 ml Documented By: Admin: 03/29/24 20:55 Dose: 30 ml Documented By: HUMBERTO Melatonin (Melatonin 3 Mg Tab) 3 mg PO HS PRN PRN Reason: Sleep Stop: 05/07/24 22:55 Last Admin: 04/10/24 22:32 Dose: 3 mg Documented By: Admin: 04/10/24 02:02 Dose: 3 mg Documented By: JANES Metoprolol Tartrate (Metoprolol Tartrate 50 Mg Tab) 50 mg PO BID JOSE Stop: 04/14/24 20:59 Last Admin: 04/13/24 08:52 Dose: 50 mg Documented By: Admin: 04/12/24 20:34 Dose: 50 mg Documented By: Admin: 04/12/24 08:06 Dose: 50 mg Documented By: Admin: 04/11/24 20:46 Dose: 50 mg Documented By: Admin: 04/11/24 08:02 Dose: 50 mg Documented By: Admin: 04/10/24 20:31 Dose: 50 mg Documented By: Admin: 04/10/24 08:51 Dose: 50 mg Documented By: Admin: 04/09/24 20:50 Dose: 50 mg Documented By: Admin: 04/09/24 08:33 Dose: 50 mg Documented By: Admin: 04/08/24 20:26 Dose: 50 mg Documented By: Admin: 04/08/24 09:11 Dose: 50 mg Documented By: Admin: 04/07/24 21:33 Dose: 50 mg Documented By: Admin: 04/07/24 08:11 Dose: 50 mg Documented By: Admin: 04/06/24 20:26 Dose: 50 mg Documented By: Admin: 04/06/24 08:29 Dose: 50 mg Documented By: Admin: 04/05/24 20:38 Dose: 50 mg Documented By: Admin: 04/05/24 09:05 Dose: 50 mg Documented By: Admin: 04/04/24 20:06 Dose: 50 mg Documented By: Admin: 04/04/24 08:09 Dose: 50 mg Documented By: Admin: 04/03/24 21:33 Dose: 50 mg Documented By: Admin: 04/03/24 07:39 Dose: 50 mg Documented By: Admin: 04/02/24 21:00 Dose: 50 mg Documented By: Admin: 04/02/24 09:25 Dose: 50 mg Documented By: Admin: 04/01/24 20:26 Dose: 50 mg Documented By: Admin: 04/01/24 09:19 Dose: 50 mg Documented By: Admin: 03/31/24 21:15 Dose: 50 mg Documented By: Admin: 03/31/24 07:47 Dose: 50 mg Documented By: Admin: 03/30/24 20:35 Dose: 50 mg Documented By: Admin: 03/30/24 08:25 Dose: 50 mg Documented By: Admin: 03/29/24 20:19 Dose: 50 mg Documented By: Admin: 03/29/24 08:27 Dose: 50 mg Documented By: Admin: 03/28/24 21:38 Dose: 50 mg Documented By: Admin: 03/28/24 08:14 Dose: 50 mg Documented By: Admin: 03/27/24 21:13 Dose: 50 mg Documented By: Admin: 03/27/24 07:59 Dose: 50 mg Documented By: Admin: 03/26/24 20:10 Dose: 50 mg Documented By: Admin: 03/26/24 08:18 Dose: 50 mg Documented By: Admin: 03/25/24 20:45 Dose: 50 mg Documented By: CRH(2) Admin: 03/25/24 09:19 Dose: 50 mg Documented By: Admin: 03/24/24 20:24 Dose: 50 mg Documented By: Admin: 03/24/24 08:29 Dose: 50 mg Documented By: Admin: 03/23/24 20:07 Dose: 50 mg Documented By: Admin: 03/23/24 08:11 Dose: 50 mg Documented By: Admin: 03/22/24 21:02 Dose: 50 mg Documented By: Admin: 03/22/24 08:01 Dose: 50 mg Documented By: Admin: 03/21/24 21:36 Dose: 50 mg Documented By: JTM(2) Admin: 03/21/24 09:04 Dose: 50 mg Documented By: Admin: 03/20/24 21:19 Dose: 50 mg Documented By: Admin: 03/20/24 10:27 Dose: 50 mg Documented By: Admin: 03/19/24 20:57 Dose: 50 mg Documented By: Admin: 03/19/24 09:40 Dose: 50 mg Documented By: Admin: 03/18/24 20:11 Dose: 50 mg Documented By: KS(2) Admin: 03/18/24 07:23 Dose: 50 mg Documented By: Admin: 03/17/24 21:34 Dose: 50 mg Documented By: Admin: 03/17/24 13:19 Dose: Not Given Documented By: Admin: 03/16/24 23:06 Dose: 50 mg Documented By: Admin: 03/16/24 08:03 Dose: 50 mg Documented By: Admin: 03/15/24 21:55 Dose: 50 mg Documented By: KAYE Miconazole Nitrate (Miconazole Nitrate 2% Cr 30 Gm Tube) 1 appln EXT BID JOSE Stop: 04/26/24 20:59 Last Admin: 04/13/24 08:53 Dose: 1 appln Documented By: Admin: 04/12/24 20:34 Dose: 1 appln Documented By: Admin: 04/12/24 08:11 Dose: 1 appln Documented By: Admin: 04/11/24 20:51 Dose: 1 appln Documented By: Admin: 04/11/24 08:03 Dose: 1 appln Documented By: LMUmesh Admin: 04/10/24 20:31 Dose: 1 appln Documented By: Admin: 04/10/24 08:53 Dose: 1 appln Documented By: Admin: 04/09/24 20:51 Dose: 1 appln Documented By: Admin: 04/09/24 11:09 Dose: 1 appln Documented By: Admin: 04/08/24 20:27 Dose: 1 appln Documented By: Admin: 04/08/24 09:17 Dose: 1 appln Documented By: Admin: 04/07/24 21:35 Dose: 1 appln Documented By: Admin: 04/07/24 08:14 Dose: 1 appln Documented By: Admin: 04/06/24 20:29 Dose: 1 appln Documented By: Admin: 04/06/24 08:29 Dose: 1 appln Documented By: Admin: 04/05/24 20:40 Dose: 1 appln Documented By: Admin: 04/05/24 09:05 Dose: 1 appln Documented By: Admin: 04/04/24 20:09 Dose: 1 appln Documented By: Admin: 04/04/24 08:12 Dose: 1 appln Documented By: Admin: 04/03/24 21:33 Dose: 1 appln Documented By: Admin: 04/03/24 07:33 Dose: 1 appln Documented By: Admin: 04/02/24 21:00 Dose: 1 appln Documented By: Admin: 04/02/24 09:33 Dose: 1 appln Documented By: Admin: 04/01/24 20:28 Dose: 1 appln Documented By: Admin: 04/01/24 09:29 Dose: 1 appln Documented By: Admin: 03/31/24 21:17 Dose: 1 appln Documented By: Admin: 03/31/24 07:48 Dose: 1 appln Documented By: Admin: 03/30/24 20:35 Dose: 1 appln Documented By: Admin: 03/30/24 08:29 Dose: 1 appln Documented By: Admin: 03/29/24 20:20 Dose: 1 appln Documented By: Admin: 03/29/24 09:56 Dose: 1 appln Documented By: Admin: 03/28/24 21:39 Dose: 1 appln Documented By: Admin: 03/28/24 08:15 Dose: 1 appln Documented By: Admin: 03/27/24 21:14 Dose: 1 appln Documented By: MMG Petrolatum (Butt Paste (Zinc Oxide 16%) 171 Appln/57 Gm Jar) 1 appln EXT BID JOSE Stop: 04/26/24 20:59 Last Admin: 04/13/24 08:52 Dose: Not Given Documented By: Admin: 04/12/24 20:35 Dose: 1 appln Documented By: Admin: 04/12/24 08:10 Dose: Not Given Documented By: RRCassia Admin: 04/11/24 20:51 Dose: 1 appln Documented By: Admin: 04/11/24 08:03 Dose: 1 appln Documented By: LMUmesh Admin: 04/10/24 20:31 Dose: 1 appln Documented By: Admin: 04/10/24 08:52 Dose: 1 appln Documented By: Admin: 04/09/24 20:51 Dose: 1 appln Documented By: MJUmesh Admin: 04/09/24 11:09 Dose: 1 appln Documented By: Admin: 04/08/24 20:27 Dose: 1 appln Documented By: Admin: 04/08/24 09:17 Dose: Not Given Documented By: Admin: 04/07/24 21:35 Dose: Not Given Documented By: Admin: 04/07/24 08:14 Dose: Not Given Documented By: AAIlana Admin: 04/06/24 20:29 Dose: Not Given Documented By: Admin: 04/06/24 08:29 Dose: Not Given Documented By: Admin: 04/05/24 20:40 Dose: Not Given Documented By: Admin: 04/05/24 09:05 Dose: 1 appln Documented By: Admin: 04/04/24 20:09 Dose: 1 appln Documented By: Admin: 04/04/24 08:12 Dose: 1 appln Documented By: Admin: 04/03/24 21:32 Dose: Not Given Documented By: Admin: 04/03/24 07:33 Dose: 1 appln Documented By: Admin: 04/02/24 21:00 Dose: Not Given Documented By: Admin: 04/02/24 09:32 Dose: 1 appln Documented By: Admin: 04/01/24 20:28 Dose: 1 appln Documented By: Admin: 04/01/24 09:30 Dose: 1 appln Documented By: Admin: 03/31/24 21:17 Dose: 1 appln Documented By: Admin: 03/31/24 07:48 Dose: 1 appln Documented By: Admin: 03/30/24 20:35 Dose: 1 appln Documented By: Admin: 03/30/24 08:29 Dose: 1 appln Documented By: Admin: 03/29/24 20:20 Dose: 1 appln Documented By: Admin: 03/29/24 09:56 Dose: 1 appln Documented By: Admin: 03/28/24 21:39 Dose: 1 appln Documented By: Admin: 03/28/24 08:15 Dose: 1 appln Documented By: Admin: 03/27/24 21:13 Dose: 1 appln Documented By: MMG Polyethylene Glycol (Polyethylene (Miralax) 17 Gm Pack) 17 gm PO HS JOSE Stop: 05/08/24 20:59 Last Admin: 04/12/24 20:35 Dose: Not Given Documented By: Admin: 04/11/24 20:50 Dose: Not Given Documented By: Admin: 04/10/24 20:31 Dose: Not Given Documented By: Admin: 04/09/24 20:51 Dose: Not Given Documented By: Admin: 04/08/24 20:27 Dose: Not Given Documented By: JANES Polyethylene Glycol (Polyethylene (Miralax) 17 Gm Pack) 17 gm PO DAILY JOSE Stop: 05/12/24 08:59 Last Admin: 04/13/24 08:52 Dose: Not Given Documented By: Admin: 04/12/24 08:10 Dose: Not Given Documented By: ROYA Senna/Docusate Sodium (Docusate Sodium/Senna 50/8.6mg Tab) 1 tab PO BID JOSE Stop: 05/08/24 20:59 Last Admin: 04/13/24 08:53 Dose: 1 tab Documented By: Admin: 04/12/24 20:34 Dose: 1 tab Documented By: Admin: 04/12/24 08:06 Dose: 1 tab Documented By: Admin: 04/11/24 20:46 Dose: 1 tab Documented By: Admin: 04/11/24 08:02 Dose: 1 tab Documented By: Admin: 04/10/24 20:31 Dose: 1 tab Documented By: Admin: 04/10/24 08:52 Dose: 1 tab Documented By: Admin: 04/09/24 20:51 Dose: 1 tab Documented By: Admin: 04/09/24 08:33 Dose: 1 tab Documented By: Admin: 04/08/24 20:26 Dose: 1 tab Documented By: JANES Sodium Chloride (Sodium Chloride 0.65% Na Soln 45 Ml ([place])) 2 sprays NA TID PRN PRN Reason: Nasal Congestion Stop: 04/27/24 22:01 Last Admin: 03/28/24 22:58 Dose: 2 sprays Documented By: HUMBERTO Discontinued Medications Acetaminophen (Acetaminophen 325 Mg Tab) 650 mg PO Q4H PRN PRN Reason: Pain or Fever Stop: 04/14/24 20:33 Last Admin: 04/05/24 07:19 Dose: 650 mg Documented By: Admin: 04/05/24 03:16 Dose: 650 mg Documented By: Admin: 04/04/24 22:51 Dose: 650 mg Documented By: Admin: 04/04/24 02:28 Dose: 650 mg Documented By: Admin: 04/03/24 21:34 Dose: 650 mg Documented By: Admin: 04/02/24 22:29 Dose: 650 mg Documented By: Admin: 04/02/24 00:56 Dose: 650 mg Documented By: Admin: 03/27/24 12:23 Dose: 650 mg Documented By: Admin: 03/24/24 23:12 Dose: 650 mg Documented By: Admin: 03/20/24 10:27 Dose: 650 mg Documented By: Admin: 03/17/24 17:42 Dose: 650 mg Documented By: Admin: 03/16/24 23:21 Dose: 650 mg Documented By: LEODAN Acetaminophen (Acetaminophen 325 Mg Tab) 650 mg PO NOW STA Stop: 03/26/24 20:49 Last Admin: 03/26/24 21:41 Dose: 650 mg Documented By: NAVJOT Albuterol (Albut/Ipratrop 3mg/0.5mg Neb 3 Ml Vial) Confirm Administered Dose 3 ml .ROUTE .STK-MED ONE Stop: 03/17/24 09:17 Last Admin: 03/17/24 09:23 Dose: 3 ml Documented By: LMM(2) Albuterol (Albuterol 0.083% Nebu Soln 3 Ml Vial) 2.5 mg NEB QIDR JOSE; Protocol Stop: 05/08/24 09:54 Last Admin: 04/13/24 15:06 Dose: 2.5 mg Documented By: Admin: 04/13/24 10:50 Dose: 2.5 mg Documented By: Admin: 04/13/24 07:04 Dose: 2.5 mg Documented By: Admin: 04/12/24 20:01 Dose: 2.5 mg Documented By: Admin: 04/12/24 15:29 Dose: 2.5 mg Documented By: JBSaji Admin: 04/12/24 11:09 Dose: 2.5 mg Documented By: JBSaji Admin: 04/12/24 07:12 Dose: 2.5 mg Documented By: Admin: 04/11/24 20:09 Dose: 2.5 mg Documented By: Admin: 04/11/24 15:18 Dose: 2.5 mg Documented By: [id number] Admin: 04/11/24 10:48 Dose: 2.5 mg Documented By: [id number] Admin: 04/11/24 07:24 Dose: 2.5 mg Documented By: [id number] Admin: 04/10/24 19:57 Dose: 2.5 mg Documented By: ARPIT(2) Admin: 04/10/24 14:42 Dose: 2.5 mg Documented By: Admin: 04/10/24 11:03 Dose: 2.5 mg Documented By: [id number] Admin: 04/10/24 07:08 Dose: 2.5 mg Documented By: Admin: 04/09/24 20:08 Dose: 2.5 mg Documented By: Admin: 04/09/24 14:41 Dose: 2.5 mg Documented By: [id number] Admin: 04/09/24 11:23 Dose: 2.5 mg Documented By: Admin: 04/09/24 06:59 Dose: 2.5 mg Documented By: Admin: 04/08/24 19:49 Dose: 2.5 mg Documented By: Admin: 04/08/24 15:04 Dose: 2.5 mg Documented By: [id number] Admin: 04/08/24 10:42 Dose: Not Given Documented By: [id number] Admin: 04/08/24 10:35 Dose: 2.5 mg Documented By: [id number] Amlodipine Besylate (Amlodipine Besylate 5 Mg Tab) 2.5 mg PO QAM JOSE Stop: 04/15/24 08:59 Last Admin: 03/21/24 09:04 Dose: 2.5 mg Documented By: Admin: 03/20/24 10:27 Dose: 2.5 mg Documented By: Admin: 03/19/24 09:39 Dose: 2.5 mg Documented By: Admin: 03/18/24 07:24 Dose: 2.5 mg Documented By: Admin: 03/17/24 13:19 Dose: Not Given Documented By: Admin: 03/16/24 08:03 Dose: 2.5 mg Documented By: OAC Amlodipine Besylate (Amlodipine Besylate 5 Mg Tab) 5 mg PO NOW ONE Stop: 03/21/24 14:46 Last Admin: 05/27/24 15:58 Dose: 5 mg Documented By: DTT Amoxicillin/Clavulanate Potassium (Amoxicillin/Clavulanate 875 Mg Tab) 1 tab PO BIDM [facility]; Protocol Stop: 03/23/24 07:59 Last Admin: 03/16/24 08:03 Dose: 1 tab Documented By: OAC Atorvastatin Calcium (Atorvastatin 40 Mg Tab) 40 mg PO NOW STA Stop: 03/16/24 23:07 Last Admin: 03/16/24 23:21 Dose: 40 mg Documented By: AKCassia Bisacodyl (Bisacodyl 5 Mg Tabec) 5 mg PO NOW ONE Stop: 04/12/24 14:15 Last Admin: 04/12/24 15:16 Dose: 5 mg Documented By: RRD Bisacodyl (Bisacodyl 5 Mg Tabec) 5 mg PO NOW ONE Stop: 04/13/24 08:32 Last Admin: 04/13/24 08:52 Dose: 5 mg Documented By: SHAUNA Bisacodyl (Bisacodyl 10 Mg Supp) 10 mg MN NOW STA Stop: 04/13/24 11:29 Last Admin: 04/13/24 12:58 Dose: 10 mg Documented By: SHAUNA Bumetanide (Bumetanide 1 Mg Tab) 3 mg PO DAILY [facility] Stop: 04/15/24 08:59 Last Admin: 03/16/24 08:03 Dose: 3 mg Documented By: OAC Dexamethasone (Dexamethasone 4 Mg Tab) 8 mg PO DAILY@1400 [facility] Stop: 03/20/24 14:01 Last Admin: 03/20/24 13:45 Dose: 8 mg Documented By: Admin: 03/19/24 13:44 Dose: 8 mg Documented By: DTT Dexamethasone (Dexamethasone 4 Mg Tab) 8 mg PO DAILY@1145 [facility] Stop: 04/09/24 11:46 Last Admin: 04/09/24 11:48 Dose: 8 mg Documented By: Admin: 04/08/24 11:22 Dose: 8 mg Documented By: CMV Diphenhydramine HCl (Diphenhydramine Capsule 25 Mg Cap) 25 mg PO NOW ONE Stop: 04/03/24 02:41 Last Admin: 04/03/24 03:44 Dose: Not Given Documented By: CRH Diphenhydramine HCl (Diphenhydramine Capsule 25 Mg Cap) 25 mg PO ONE ONE Stop: 04/11/24 21:01 Last Admin: 04/11/24 22:30 Dose: 25 mg Documented By: ARPIT Docusate Sodium (Docusate Sodium 100 Mg Cap) 100 mg PO BID JOSE Stop: 04/28/24 20:59 Last Admin: 04/08/24 09:12 Dose: 100 mg Documented By: Admin: 04/07/24 21:34 Dose: 100 mg Documented By: Admin: 04/07/24 08:11 Dose: 100 mg Documented By: Admin: 04/06/24 20:26 Dose: 100 mg Documented By: Admin: 04/06/24 08:29 Dose: 100 mg Documented By: Admin: 04/05/24 20:38 Dose: 100 mg Documented By: Admin: 04/05/24 09:04 Dose: 100 mg Documented By: Admin: 04/04/24 20:07 Dose: 100 mg Documented By: Admin: 04/04/24 08:09 Dose: 100 mg Documented By: Admin: 04/03/24 21:29 Dose: 100 mg Documented By: Admin: 04/03/24 07:29 Dose: 100 mg Documented By: Admin: 04/02/24 20:57 Dose: 100 mg Documented By: Admin: 04/02/24 09:18 Dose: 100 mg Documented By: Admin: 04/01/24 20:24 Dose: 100 mg Documented By: Admin: 04/01/24 09:14 Dose: 100 mg Documented By: Admin: 03/31/24 21:16 Dose: 100 mg Documented By: Admin: 03/31/24 07:48 Dose: 100 mg Documented By: Admin: 03/30/24 20:35 Dose: 100 mg Documented By: Admin: 03/30/24 08:25 Dose: 100 mg Documented By: Admin: 03/29/24 20:19 Dose: 100 mg Documented By: HUMBERTO Fentanyl Citrate (Fentanyl Citrate Pf 100 Mcg/2 Ml Vial) Confirm Administered Dose 100 mcg .ROUTE .STK-MED ONE Stop: 03/17/24 07:47 Last Admin: 03/17/24 09:25 Dose: Not Given Documented By: ROBERTO Fentanyl Citrate (Fentanyl Citrate Pf 100 Mcg/2 Ml Vial) Confirm Administered Dose 100 mcg .ROUTE .STK-MED ONE Stop: 03/17/24 08:14 Last Admin: 03/17/24 09:25 Dose: 100 mcg Documented By: ROBERTO Ferrous Sulfate (Ferrous Sulfate 325 Mg/7.4 Ml Udp) 325 mg PO QAM JOSE Stop: 04/21/24 08:59 Last Admin: 03/24/24 08:30 Dose: 325 mg Documented By: Admin: 03/23/24 08:11 Dose: 325 mg Documented By: Admin: 03/22/24 08:00 Dose: 325 mg Documented By: ANJALI Filgrastim (Filgrastim 300 Mcg/Ml Vial) 300 mcg SC DAILY@1600 [facility] Stop: 03/22/24 16:01 Last Admin: 03/22/24 17:13 Dose: 300 mcg Documented By: Admin: 03/21/24 17:08 Dose: 300 mcg Documented By: ANJALI Filgrastim (Filgrastim 480 Mcg/1.6 Ml Vial) 480 mcg SC ONE ONE Stop: 03/30/24 13:31 Last Admin: 03/30/24 15:24 Dose: 480 mcg Documented By: RANCHO Filgrastim (Filgrastim 480 Mcg/1.6 Ml Vial) 480 mcg SC Th@0915 ONE Stop: 03/31/24 09:16 Last Admin: 03/31/24 07:47 Dose: 480 mcg Documented By: GRISELDA Filgrastim (Filgrastim 480 Mcg/1.6 Ml Vial) 480 mcg SQ DAILY@1500 [facility] Stop: 04/11/24 15:01 Last Admin: 04/10/24 15:23 Dose: 480 mcg Documented By: ENDY Fluticasone Propionate (Fluticasone Propionate Na Spr 16 Gm Btl) 1 sprays NA DAILY [facility] Stop: 05/03/24 08:59 Last Admin: 04/04/24 08:13 Dose: Not Given Documented By: Admin: 04/03/24 07:32 Dose: 1 sprays Documented By: ADÁN Fluticasone Propionate (Fluticasone Propionate Na Spr 16 Gm Btl) 1 sprays NA NOW STA Stop: 04/03/24 02:41 Last Admin: 04/03/24 03:16 Dose: 1 sprays Documented By: EUGENIA Furosemide (Furosemide 40 Mg/4 Ml Vial) 40 mg IV ONE ONE Stop: 04/01/24 08:05 Last Admin: 04/01/24 09:44 Dose: 40 mg Documented By: ADÁN Furosemide (Furosemide Inj 20 Mg/2 Ml Vial) 10 mg IV ONE ONE Stop: 04/06/24 12:35 Last Admin: 04/06/24 13:53 Dose: 10 mg Documented By: ARLETH Furosemide (Furosemide Inj 20 Mg/2 Ml Vial) 20 mg IV ONE ONE Stop: 04/06/24 15:59 Last Admin: 04/06/24 17:47 Dose: 20 mg Documented By: ARLETH Furosemide (Furosemide Inj 20 Mg/2 Ml Vial) 20 mg IV ONE ONE Stop: 04/11/24 16:09 Last Admin: 04/11/24 17:21 Dose: 20 mg Documented By: TARA Gabapentin (Gabapentin 300 Mg Cap) 300 mg PO BID JOSE Stop: 04/14/24 20:59 Last Admin: 04/08/24 09:11 Dose: 300 mg Documented By: Admin: 04/07/24 21:34 Dose: 300 mg Documented By: Admin: 04/07/24 08:11 Dose: 300 mg Documented By: Admin: 04/06/24 20:25 Dose: 300 mg Documented By: Admin: 04/06/24 08:29 Dose: 300 mg Documented By: Admin: 04/05/24 20:39 Dose: 300 mg Documented By: Admin: 04/05/24 09:04 Dose: 300 mg Documented By: Admin: 04/04/24 20:07 Dose: 300 mg Documented By: Admin: 04/04/24 08:09 Dose: 300 mg Documented By: Admin: 04/03/24 21:31 Dose: 300 mg Documented By: Admin: 04/03/24 07:29 Dose: 300 mg Documented By: Admin: 04/02/24 20:58 Dose: 300 mg Documented By: Admin: 04/02/24 09:19 Dose: 300 mg Documented By: Admin: 04/01/24 20:28 Dose: 300 mg Documented By: Admin: 04/01/24 09:19 Dose: 300 mg Documented By: Admin: 03/31/24 21:14 Dose: 300 mg Documented By: Admin: 03/31/24 07:47 Dose: 300 mg Documented By: Admin: 03/30/24 20:35 Dose: 300 mg Documented By: Admin: 03/30/24 08:25 Dose: 300 mg Documented By: Admin: 03/29/24 20:20 Dose: 300 mg Documented By: Admin: 03/29/24 08:27 Dose: 300 mg Documented By: Admin: 03/28/24 21:38 Dose: 300 mg Documented By: Admin: 03/28/24 08:13 Dose: 300 mg Documented By: Admin: 03/27/24 21:13 Dose: 300 mg Documented By: Admin: 03/27/24 08:00 Dose: 300 mg Documented By: Admin: 03/26/24 20:09 Dose: 300 mg Documented By: Admin: 03/26/24 08:18 Dose: 300 mg Documented By: Admin: 03/25/24 20:43 Dose: 300 mg Documented By: CRH(2) Admin: 03/25/24 09:19 Dose: 300 mg Documented By: Admin: 03/24/24 20:25 Dose: 300 mg Documented By: Admin: 03/24/24 08:29 Dose: 300 mg Documented By: Admin: 03/23/24 20:08 Dose: 300 mg Documented By: Admin: 03/23/24 08:10 Dose: 300 mg Documented By: Admin: 03/22/24 21:00 Dose: 300 mg Documented By: Admin: 03/22/24 08:00 Dose: 300 mg Documented By: Admin: 03/21/24 21:35 Dose: 300 mg Documented By: JTM(2) Admin: 03/21/24 09:04 Dose: 300 mg Documented By: Admin: 03/20/24 21:18 Dose: 300 mg Documented By: Admin: 03/20/24 10:27 Dose: 300 mg Documented By: Admin: 03/19/24 20:55 Dose: 300 mg Documented By: Admin: 03/19/24 09:39 Dose: 300 mg Documented By: Admin: 03/18/24 20:11 Dose: 300 mg Documented By: KS(2) Admin: 03/18/24 07:23 Dose: 300 mg Documented By: Admin: 03/17/24 21:35 Dose: 300 mg Documented By: Admin: 03/17/24 13:19 Dose: Not Given Documented By: Admin: 03/16/24 23:05 Dose: 300 mg Documented By: AKCassia Admin: 03/16/24 08:03 Dose: 300 mg Documented By: Admin: 03/15/24 21:56 Dose: 300 mg Documented By: KAYE Hydromorphone HCl (Hydromorphone Inj 0.5 Mg/0.5 Ml Syr) 0.25 mg IV Q6H PRN PRN Reason: Severe Pain (Scale 7, 8, 9,10) Stop: 03/31/24 14:45 Last Admin: 03/22/24 19:43 Dose: 0.25 mg Documented By: Admin: 03/22/24 13:17 Dose: 0.5 mg Documented By: Admin: 03/21/24 17:11 Dose: 0.25 mg Documented By: Admin: 03/21/24 09:04 Dose: 0.25 mg Documented By: Admin: 03/18/24 07:45 Dose: 0.25 mg Documented By: RANJIT Hydromorphone HCl (Hydromorphone Inj 0.5 Mg/0.5 Ml Syr) 0.25 mg IV Q3H PRN PRN Reason: Pain, dyspnea Stop: 04/01/24 11:50 Last Admin: 04/01/24 04:56 Dose: 0.25 mg Documented By: Admin: 03/31/24 19:49 Dose: 0.25 mg Documented By: Admin: 03/31/24 13:46 Dose: 0.25 mg Documented By: Admin: 03/31/24 07:29 Dose: 0.25 mg Documented By: Admin: 03/31/24 03:55 Dose: 0.25 mg Documented By: Admin: 03/30/24 22:35 Dose: 0.25 mg Documented By: Admin: 03/25/24 21:58 Dose: 0.25 mg Documented By: EUGENIA(2) Admin: 03/21/24 21:31 Dose: 0.25 mg Documented By: JRADHAMES(2) Admin: 03/21/24 03:09 Dose: 0.25 mg Documented By: Admin: 03/20/24 21:27 Dose: 0.25 mg Documented By: Admin: 03/20/24 06:01 Dose: 0.25 mg Documented By: NAV Hydromorphone HCl (Hydromorphone Inj 0.5 Mg/0.5 Ml Syr) 0.25 mg IV NOW STA Stop: 03/31/24 15:49 Last Admin: 03/31/24 16:09 Dose: 0.25 mg Documented By: GRISELDA Hydromorphone HCl (Hydromorphone Inj 0.5 Mg/0.5 Ml Syr) 0.5 mg IV NOW STA Stop: 03/31/24 21:29 Last Admin: 03/31/24 21:56 Dose: 0.5 mg Documented By: CWR Hydromorphone HCl (Hydromorphone Inj 0.5 Mg/0.5 Ml Syr) 0.5 mg IV NOW STA Stop: 04/02/24 22:54 Last Admin: 04/02/24 23:02 Dose: Not Given Documented By: CRH Sodium Chloride (Nss) 1,000 mls @ 75 mls/hr IV .[id number] [facility] Stop: 04/14/24 20:33 Last Infusion: 03/17/24 00:30 Dose: Infused Documented By: Admin: 03/16/24 11:10 Dose: 75 mls/hr Documented By: Infusion: 03/16/24 11:10 Dose: Infused Documented By: Admin: 03/15/24 21:58 Dose: 75 mls/hr Documented By: KAYE Potassium Chloride (K Floyd / Wtr) 10 meq in 100 mls @ 100 mls/hr IV Q1H JOSE Stop: 03/16/24 01:29 Last Infusion: 03/16/24 04:00 Dose: Infused Documented By: AURORA(2) Admin: 03/16/24 02:39 Dose: 100 mls/hr Documented By: AURORA(2) Infusion: 03/16/24 02:39 Dose: Infused Documented By: AURORA(2) Admin: 03/16/24 01:00 Dose: 100 mls/hr Documented By: AURORA(2) Infusion: 03/16/24 00:59 Dose: Infused Documented By: AURORA(2) Admin: 03/15/24 23:39 Dose: 100 mls/hr Documented By: AURORA(2) Infusion: 03/15/24 23:19 Dose: Infused Documented By: NAVJOT(2) Admin: 03/15/24 21:58 Dose: 100 mls/hr Documented By: KAYE Potassium Chloride (K Floyd / Wtr) 10 meq in 100 mls @ 100 mls/hr IV Q1H JOSE Stop: 03/16/24 21:29 Last Infusion: 03/16/24 22:54 Dose: Infused Documented By: Admin: 03/16/24 21:54 Dose: 100 mls/hr Documented By: Infusion: 03/16/24 21:42 Dose: Infused Documented By: Admin: 03/16/24 20:42 Dose: 100 mls/hr Documented By: LEODAN Promethazine HCl 12.5 mg/ (Sodium Chloride) 50.5 mls @ 202 mls/hr IV NOW STA Stop: 03/16/24 21:13 Last Infusion: 03/16/24 21:31 Dose: Infused Documented By: Admin: 03/16/24 21:16 Dose: 202 mls/hr Documented By: LEODAN Sodium Chloride (Nss) 1,000 mls @ 75 mls/hr IV .[id number] JOSE Stop: 03/17/24 12:34 Last Infusion: 03/17/24 12:42 Dose: Infused Documented By: Admin: 03/16/24 23:22 Dose: 75 mls/hr Documented By: LEODAN Lorazepam 0.5 mg/ Syringe 0.5 mls @ 2 mls/min IV NOW STA Stop: 03/17/24 09:16 Last Admin: 03/17/24 09:23 Dose: Not Given Documented By: ROBERTO Palonosetron 0.25 mg/ Syringe 5 mls @ 10 mls/min IV DAILY JOSE Stop: 03/19/24 09:01 Last Admin: 03/19/24 09:39 Dose: 10 mls/min Documented By: DTT Palonosetron 0.25 mg/ Syringe 5 mls @ 10 mls/min IV DAILY JOSE Stop: 04/20/24 08:59 Last Admin: 03/28/24 09:08 Dose: 10 mls/min Documented By: Admin: 03/27/24 09:22 Dose: 10 mls/min Documented By: Admin: 03/26/24 08:24 Dose: 10 mls/min Documented By: Admin: 03/25/24 11:30 Dose: 10 mls/min Documented By: Admin: 03/24/24 08:37 Dose: 10 mls/min Documented By: Admin: 03/23/24 08:17 Dose: 10 mls/min Documented By: Admin: 03/22/24 08:07 Dose: 10 mls/min Documented By: Admin: 03/21/24 10:03 Dose: 10 mls/min Documented By: DTT Promethazine HCl 6.25 mg/ (Sodium Chloride) 50.25 mls @ 201 mls/hr IV Q6H PRN PRN Reason: Nausea And Vomiting Stop: 04/17/24 13:51 Last Infusion: 03/20/24 07:27 Dose: Infused Documented By: Admin: 03/20/24 07:09 Dose: 201 mls/hr Documented By: Infusion: 03/19/24 17:19 Dose: Infused Documented By: Admin: 03/19/24 16:14 Dose: 201 mls/hr Documented By: ANJALI Carboplatin 350 mg/ Sodium (Chloride) 285 mls @ 570 mls/hr IV TODAY@1500 JOSE; Protocol Stop: 03/18/24 15:29 Last Infusion: 03/18/24 15:56 Dose: Infused Documented By: MARY Co-signed By: RANJIT Admin: 03/18/24 15:09 Dose: 570 mls/hr Documented By: MARY Co-signed By: GREG Etoposide 140 mg/ Sodium (Chloride) 507 mls @ 507 mls/hr IV TODAY@1530 JOSE; Protocol Stop: 03/18/24 16:29 Last Infusion: 03/18/24 17:26 Dose: Infused Documented By: ELMER Co-signed By: GELA Admin: 03/18/24 15:58 Dose: 507 mls/hr Documented By: MARY Co-signed By: RANJIT Etoposide 140 mg/ Sodium (Chloride) 507 mls @ 507 mls/hr IV DAILY@1430 JOSE; Protocol Stop: 03/20/24 15:29 Last Infusion: 03/20/24 15:34 Dose: Infused Documented By: JONATHAN Co-signed By: ROSALVA Admin: 03/20/24 14:30 Dose: 507 mls/hr Documented By: ROSALVA Co-signed By: JONATHAN Infusion: 03/19/24 15:30 Dose: Infused Documented By: ROSALVA Co-signed By: JONATHAN Admin: 03/19/24 14:19 Dose: 507 mls/hr Documented By: ROSALVA Co-signed By: JONATHAN Palonosetron 0.25 mg/ Syringe 5 mls @ 10 mls/min IV TODAY@1400 JOSE Stop: 03/20/24 14:01 Last Admin: 03/20/24 13:45 Dose: 10 mls/min Documented By: DTT Sodium Chloride (1/2 Nss) 1,000 mls @ 60 mls/hr IV .[id number] ONE Stop: 03/27/24 13:29 Last Infusion: 03/27/24 15:29 Dose: Infused Documented By: Admin: 03/26/24 21:42 Dose: 60 mls/hr Documented By: MMChika Magnesium Sulfate/Dextrose (Magnesium Sulfate / D5w) 1 gm in 100 mls @ 50 mls/hr IV ONE ONE Stop: 03/29/24 08:36 Last Infusion: 03/29/24 10:46 Dose: Infused Documented By: Admin: 03/29/24 08:46 Dose: 50 mls/hr Documented By: ROYA Albumin Human (Albumin 25%) 12.5 gm in 50 mls @ 50 mls/hr IV ONE ONE Stop: 03/29/24 07:36 Last Infusion: 03/29/24 07:49 Dose: Infused Documented By: Admin: 03/29/24 06:49 Dose: 50 mls/hr Documented By: HUMBERTO Dexamethasone 12 mg/Palonosetron 0.25 mg/ Sodium Chloride 58 mls @ 232 mls/hr IV TODAY@1000 ONE Stop: 04/07/24 10:14 Last Infusion: 04/07/24 11:28 Dose: Infused Documented By: Admin: 04/07/24 10:46 Dose: 232 mls/hr Documented By: ANDREI Fosaprepitant 150 mg/ Sodium (Chloride) 150 mls @ 450 mls/hr IV TODAY@1015 ONE Stop: 04/07/24 10:34 Last Infusion: 04/07/24 14:56 Dose: Infused Documented By: Admin: 04/07/24 12:21 Dose: 450 mls/hr Documented By: MARY Carboplatin 350 mg/ Sodium (Chloride) 285 mls @ 570 mls/hr IV TODAY@1135 [facility]; Protocol Stop: 04/07/24 12:04 Last Infusion: 04/07/24 14:56 Dose: Infused Documented By: MARY Co-signed By: SHAR Admin: 04/07/24 13:45 Dose: 570 mls/hr Documented By: MARY Co-signed By: ERB Etoposide 140 mg/ Sodium (Chloride) 507 mls @ 507 mls/hr IV TODAY@1215 [facility]; Protocol Stop: 04/09/24 13:14 Last Infusion: 04/09/24 13:53 Dose: Infused Documented By: ROSALVA Co-signed By: GELA Admin: 04/09/24 12:28 Dose: 500 mls/hr Documented By: ROSALVA Co-signed By: GELA Infusion: 04/08/24 13:19 Dose: Infused Documented By: GREG Co-signed By: SHAR Admin: 04/08/24 11:57 Dose: 500 mls/hr Documented By: ANDRE Co-signed By: GREG Infusion: 04/07/24 16:06 Dose: Infused Documented By: MARY Co-signed By: SHAR Infusion: 04/07/24 14:56 Dose: 500 mls/hr Documented By: MARY Co-signed By: SHAR Admin: 04/07/24 14:51 Dose: 507 mls/hr Documented By: MARY Co-signed By: SHAR Palonosetron 0.25 mg/ Syringe 5 mls @ 10 mls/min IV TODAY@1145 [facility] Stop: 04/09/24 11:46 Last Admin: 04/09/24 11:48 Dose: 10 mls/min Documented By: CMV Vancomycin HCl 1,250 mg/ (Sodium Chloride) 275 mls @ 200 mls/hr IV NOW ONE Stop: 04/11/24 11:52 Last Infusion: 04/11/24 12:38 Dose: Infused Documented By: Admin: 04/11/24 11:15 Dose: 200 mls/hr Documented By: TARA Ioversol (Optiray 320 125ml) 118 ml IV ONCE ONE Stop: 03/15/24 15:54 Last Admin: 03/15/24 15:53 Dose: 118 ml Documented By: SUZAN Ioversol (Optiray 320 100ml) 89 ml IV ONCE ONE Stop: 03/16/24 15:44 Last Admin: 03/16/24 15:43 Dose: 89 ml Documented By: SUZAN Ioversol (Optiray 320 125ml) 116 ml IV ONCE ONE Stop: 03/16/24 22:17 Last Admin: 03/16/24 22:16 Dose: 116 ml Documented By: MONI Ketorolac Tromethamine (Ketorolac Tromethamine 15 Mg/Ml Vial) 10 mg IV NOW ONE Stop: 03/26/24 22:39 Last Admin: 03/27/24 01:38 Dose: Not Given Documented By: NAVJOT Ketorolac Tromethamine (Ketorolac Tromethamine 15 Mg/Ml Vial) 15 mg IV NOW ONE Stop: 04/01/24 20:37 Last Admin: 04/01/24 20:55 Dose: 15 mg Documented By: TEETEE Levofloxacin (Levofloxacin 750 Mg Tab) 750 mg PO Q2D@1100 JO[facility]; Protocol Stop: 03/22/24 21:59 Last Admin: 03/15/24 22:14 Dose: 750 mg Documented By: KAYE Loratadine (Loratadine 10 Mg Tab) 10 mg PO NOW ONE Stop: 03/26/24 20:36 Last Admin: 03/26/24 21:42 Dose: 10 mg Documented By: NAVJOT Loratadine (Loratadine 10 Mg Tab) 10 mg PO [facility] Stop: 04/27/24 22:04 Last Admin: 03/28/24 22:58 Dose: 10 mg Documented By: HUMBERTO Lorazepam (Lorazepam 1 Mg/1 Ml Syr Ed Inj Use) 0.5 mg IV ONE STA Stop: 03/15/24 18:12 Last Admin: 03/15/24 18:15 Dose: 0.5 mg Documented By: KAYE Lorazepam (Lorazepam 1 Mg/1 Ml Syr Ed Inj Use) Confirm Administered Dose 1 mg .ROUTE .STK-MED ONE Stop: 03/17/24 09:20 Last Admin: 03/17/24 09:23 Dose: 1 mg Documented By: ROBERTO Melatonin (Melatonin 3 Mg Tab) 3 mg PO [facility] Stop: 05/03/24 20:59 Last Admin: 04/07/24 21:35 Dose: Not Given Documented By: Admin: 04/06/24 21:54 Dose: Not Given Documented By: Admin: 04/05/24 20:38 Dose: 3 mg Documented By: Admin: 04/04/24 21:59 Dose: Not Given Documented By: Admin: 04/03/24 21:40 Dose: 3 mg Documented By: EUGENIA Midazolam HCl (Midazolam Hcl 5 Mg/Ml 1 Ml Vial) Confirm Administered Dose 5 mg .ROUTE .STK-MED ONE Stop: 03/17/24 07:47 Last Increment: 03/17/24 09:25 Dose: 4 mg Documented By: ROBERTO Olanzapine (Olanzapine Zydis 10 Mg Orally Dis. Tab) 10 mg PO QAM JOSE Stop: 04/19/24 11:44 Last Admin: 03/21/24 09:04 Dose: 10 mg Documented By: Admin: 03/20/24 11:59 Dose: 10 mg Documented By: ANJALI Olanzapine (Olanzapine Zydis 5 Mg Orally Dis. Tab) 2.5 mg PO HS JOSE Stop: 03/24/24 21:01 Last Admin: 03/24/24 20:25 Dose: 2.5 mg Documented By: Admin: 03/23/24 20:10 Dose: 2.5 mg Documented By: Admin: 03/22/24 21:03 Dose: 2.5 mg Documented By: Admin: 03/21/24 21:36 Dose: 2.5 mg Documented By: PRASAD(2) Ondansetron HCl (Ondansetron Inj 2 Mg/Ml 2 Ml Vial) 4 mg IV Q6H PRN PRN Reason: Nausea Stop: 04/14/24 20:33 Last Admin: 03/18/24 08:58 Dose: 4 mg Documented By: Admin: 03/18/24 07:23 Dose: 4 mg Documented By: Admin: 03/17/24 19:34 Dose: 4 mg Documented By: Admin: 03/16/24 17:46 Dose: 4 mg Documented By: ЮЛИЯ Admin: 03/15/24 22:54 Dose: 4 mg Documented By: MMChika(2) Oxycodone HCl (Oxycodone Hcl Ir 5 Mg Tab (Immediate Release)) 5 mg PO Q4 PRN PRN Reason: Pain Stop: 03/29/24 20:33 Last Admin: 03/27/24 21:14 Dose: 5 mg Documented By: Admin: 03/24/24 00:42 Dose: 5 mg Documented By: Admin: 03/23/24 20:06 Dose: 5 mg Documented By: Admin: 03/16/24 15:56 Dose: 5 mg Documented By: ЮЛИЯ Oxycodone HCl (Oxycodone Hcl Ir 5 Mg Tab (Immediate Release)) 5 mg PO NOW STA Stop: 04/11/24 11:12 Last Admin: 04/11/24 11:20 Dose: 5 mg Documented By: LMM Oxycodone HCl (Oxycodone Hcl Ir 5 Mg Tab (Immediate Release)) 5 mg PO TODAY@1200 [facility] Stop: 04/12/24 18:00 Last Admin: 04/12/24 12:30 Dose: 5 mg Documented By: ROYA Polyethylene Glycol (Polyethylene (Miralax) 17 Gm Pack) 17 gm PO DAILY ONE Stop: 03/27/24 10:17 Last Admin: 03/27/24 13:49 Dose: 17 gm Documented By: CF Polyethylene Glycol (Polyethylene (Miralax) 17 Gm Pack) 17 gm PO DAILY [facility] Stop: 05/08/24 09:59 Last Admin: 04/08/24 11:23 Dose: Not Given Documented By: CMV Potassium Chloride (Potassium Chloride Crtab 20 Meq Tabcr) 40 meq PO Q6 JO[facility] Stop: 03/16/24 18:01 Last Admin: 03/16/24 17:11 Dose: 40 meq Documented By: Admin: 03/16/24 13:20 Dose: 40 meq Documented By: Admin: 03/16/24 06:35 Dose: Not Given Documented By: JADS(2) Admin: 03/15/24 23:37 Dose: 40 meq Documented By: KMS(2) Potassium Chloride (Potassium Chloride Crtab 20 Meq Tabcr) 40 meq PO NOW STA Stop: 03/23/24 10:11 Last Admin: 03/23/24 12:42 Dose: 40 meq Documented By: KKS Potassium Chloride (Potassium Chloride Crtab 20 Meq Tabcr) 40 meq PO NOW STA Stop: 03/28/24 08:26 Last Admin: 03/28/24 09:07 Dose: 40 meq Documented By: MS Potassium Chloride (Potassium Chloride Pwd 20 Meq Pack) 40 meq PO NOW STA Stop: 03/29/24 06:43 Last Admin: 03/29/24 08:22 Dose: 40 meq Documented By: ROYA Potassium Chloride (Potassium Chloride Crtab 20 Meq Tabcr) 40 meq PO NOW STA Stop: 03/29/24 12:19 Last Admin: 03/29/24 13:04 Dose: 40 meq Documented By: ROYA Potassium Chloride (Potassium Chloride Crtab 20 Meq Tabcr) 40 meq PO NOW STA Stop: 04/02/24 14:39 Last Admin: 04/02/24 14:51 Dose: 40 meq Documented By: ADÁN Potassium Chloride (Potassium Chloride Crtab 20 Meq Tabcr) 40 meq PO NOW STA Stop: 04/07/24 17:26 Last Admin: 04/07/24 18:29 Dose: 40 meq Documented By: ANDREI Sodium Chloride (Sodium Chlor 7% 4 Ml Neb) 4 ml NEB BIDR JOSE Stop: 05/11/24 18:59 Last Admin: 04/13/24 07:04 Dose: 4 ml Documented By: Admin: 04/12/24 20:01 Dose: 4 ml Documented By: Admin: 04/12/24 07:12 Dose: 4 ml Documented By: Admin: 04/11/24 20:09 Dose: 4 ml Documented By: LISY Tramadol HCl (Tramadol Hcl 50 Mg Tablet) 50 mg PO NOW STA Stop: 04/02/24 23:13 Last Admin: 04/03/24 00:00 Dose: Not Given Documented By: EUGENIA Tramadol HCl (Tramadol Hcl 50 Mg Tablet) 50 mg PO NOW STA Stop: 04/03/24 02:40 Last Admin: 04/03/24 02:56 Dose: 50 mg Documented By: EUGENIA
[2024-04-13] MEDS ORDERED: ALBUTEROL 0.083% NEBU SOLN 3 ML VIAL NEB PRN (15:22)
[2024-04-14 07:00] LABS: Hematocrit (blood only) 29.1 % (37.0-47.0); Hemoglobin 9.2 g/dl (12.0-16.0); Mean Corpuscular Hemoglobin 30.8 pg (25.0-34.0); Mean Corpuscular Hgb Conc 31.6 g/dL (32.0-36.0); Mean Corpuscular Volume 97.3 fL (80.0-100.0); Mean Platelet Volume 9.5 fL (9.4-12.4); Platelet Count 270 K/uL (130-400); Red Blood Count 2.99 M/uL (4.20-5.40); White Blood Count 6.47 K/ul (4.8-10.8)
[2024-04-14 07:18] LABS: BUN Creatinine Ratio 34.9 (10-20); Calcium 8.7 mg/dl (8.6-10.3); Creatinine Clr Calc Pharmacy 92.8 ml/min; Est GFR (Non-African American) 94.1 ml/min; Potassium 3.8 mmol/L (3.5-5.1)
[2024-04-14] MEDS: oxyCODONE HCL IR 5 MG TAB (IMMEDIATE RELEASE) PO STA (07:19)
[2024-04-14 07:20] LABS: Basophils # (auto) 0.17 K/uL (0.00-0.20); Basophils % (auto) 2.6 %; Eosinophils # (auto) 0.05 K/uL (0.00-0.50); Eosinophils % (auto) 0.8 %; Immature Granulocytes # (auto) 0.12 K/uL (0.01-0.20); Immature Granulocytes % (auto) 1.9 %; Monocytes # (auto) 0.11 K/uL (0.11-0.59); Monocytes % (auto) 1.7 %; Neutrophils # (auto) 4.92 K/uL (1.40-6.50)
--- NOTE | 2024-04-14 10:46 | Hospitalist Progress Note ---
Date of Service April 14, 2024 Assessment & Plan (1) Suspected malignant neoplasm of lung: (2) Acute kidney injury: (3) Lymphadenopathy, mediastinal: (4) Paroxysmal atrial fibrillation: (5) Hypokalemia: (6) Mild right ventricular systolic dysfunction: Plan Per previous hospitalist notes with slight changes/addendum: Sheri Camacho is an 83-year-old F with PMHx of HFpEF, A-fib, thoracic aortic aneurysm, HTN, osteoporosis, inflamed seborrheic keratosis, major depressive disorder, tobacco use disorder, aortic valve replacement with bioprosthetic valve who presented to the ED with acute hypoxemic respiratory failure due to suspected lung malignancy and concern for metastatic disease. 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 Cardiomegaly with pulmonary vascular congestion. Left basilar opacity. * CTA chest: No PE. Large right hilar/upper lobe mass measuring 10 x 8 cm highly suspicious for primary bronchogenic malignancy. Right anterior diaphragmatic lymphadenopathy representing metastatic disease. 2.1 cm left upper lobe nodule abutting the mediastinum likely representing metastatic disease. Small right pleural effusion suggestive of malignant pleural effusion. * CTAP: Negative for metastatic disease. 1.9 cm left adrenal nodule which was likely present on CT of September 25, 2022. Small right pleural effusion. * CT head and CTA head/neck: No acute findings. BioFire was NEGATIVE S/P bronchoscopy 03/17/24 with worsening respiratory failure requiring BiPAP. Patient was weaned off of BiPAP and now on oxygen mask. --> Currently 95% SpO2 on 3L. Heme/Onc Evaluation - S/P Cycle 1 of carbo/etoposide (03/18) [carboplatin day 1, etoposide day 1-3]. Completed cycle 2 of chemotherapy treatment 04/07 - 04/09 S/P Neupogen 04/10 Patient to have Mediport placed on Thursday (04/18) with General Surgery per Dr. Lyle's recommendation. --> Holding Eliquis starting TOMORROW AM (04/15); will start her on SQ heparin tomorrow -Need to have patient NPO at midnight on Thursday (04/17); will need to stop SQ heparin Thursday (04/17) at midnight per general surgery 04/11 --> Pt feeling ill, ? chemo induced vs. concern for developing infection WBC 76k, urine, blood cultures, lactic acid obtained Chest CT: Cardiomegaly and emphysema. 2. A large right upper lobe paramediastinal mass lesion with mediastinal indication a significantly decreased in size as compared to 03/15/2024. Metastatic right cardiophrenic lymphadenopathy has also decreased from previous. 3. Small right and trace left pleural effusions. 4. Patchy airspace opacities in the right lower lobe are nonspecific and may be on an infectious/inflammatory basis. Correlate clinically. Attention at follow-up will be required. 5. An 11 mm left lower lobe nodular opacity is new from previous and may also be inflammatory. Attention at follow-up will be required. 6. A 2.2 cm spiculated lesion in the paramediastinal left upper lobe is unchanged. This remains highly suspicious for neoplasm. Empirically covering w/ IV cefepime and Flagyl Blood culture shows NGTD Urine culture w/ 3 types of organisms present, all low counts probably skin indio 04/13 --> Pt still not feeling great. C/o weakness, fatigue and generalized body aches. -No labs collected today per pt's request to not be stuck so much -Pending Mediport placement on Thursday -No reported fevers, chills -Blood culture shows NGTD -Will continue empiric coverage w/ IV cefepime, Flagyl 04/14 --> Pt still c/o generalized weakness, fatigue and generalized body aches. -WBC normalized at 6.7 this morning -Pending Mediport placement w/ Dr. Rankin on Thursday -Still denies having any fevers, chills -Blood culture still showing NGTD -Stopping IV cefepime, Flagyl tomorrow Pleural Effusions: Acute Admitting imaging: CXR with asymmetric right hilar mass like enlargement. Cardiomegaly with pulmonary vascular congestion. Left basilar opacity. Repeat CXR on 03/31 showed pulmonary vascular congestion, suspected atelectasis Pt now weaned to 3L, was given IV Lasix 40 mg on 04/01 and 04/02 04/06 CXR: Cardiomegaly with pulmonary vascular congestion and unchanged right pleural effusion She was seen and evaluated by Pulm who feels hypoxia in setting of compressive atelectasis due to mass, pleural effusions minimal Takes Bumex twice weekly at home Continue to monitor I&Os Patient does have R>L LE edema give history of history of ankle fractures Was on scheduled nebs, pt is not fond of breathing treatments Switched albuterol nebs to PRN, discontinued hypertonic nebs per pt's request Remain off home diuretic, will continue to hold given softer BPs SVC Syndrome HTN Non-Obstructive CAD Valvular Heart Disease Patient OOB to chair and bathroom HOLD Amlodipine, Losartan due to lower BP Continue ASA Stroke-like symptoms Myoclonic jerks Continue statin, ASA and Eliquis Pancytopenia: Likely due to chemotherapy Per Heme/Onc note, received GCSF on 03/21 Dr. Lyle recommended additional dose of Neupogen 480mcg on 03/30 and 03/31 Pt received GCSF post-chemo on 04/10 WBC improving from 77k on 04/11 --> 33k on 04/12, likely in setting of GCSF and underlying infection WBC today normalized at 6.47k Normocytic anemia: Chronic, stable Anemia labs: folate/b12 normal; iron 37 and ferritin 58.4 --> C/W iron PO Atrial fibrillation: Continue Eliquis, amiodarone and Lopressor Will need to hold Eliquis beginning THURSDAY AM (04/15) prior to Mediport placement Will start SQ heparin given need to stop Eliquis --> Will need to hold SQ heparin on Thursday at midnight (04/17) Ascending Aortic Aneurysm Dissection s/p Repair: CTM, BP Control Melatonin HS to aid with sleep Continue gabapentin 300mg BID VTE Prophylaxis: Holding Eliquis starting tomorrow AM; Will start SQ heparin tomorrow until Thursday (04/17) at midnight - will hold for Mediport placement on Thursday (04/18). Conditional code: Per admitting Dr --> Chest compressions are acceptable, NO intubation Disposition: Continue to monitor day to day, pt is accepted at [facility]. Was to d/c pt on 04/11, but due to ADR of CHEMO and b/l pneumonia, discharge was postponed. CM will likely need to reapply for auth. So when felt pt is medically stable, please let CM know. Also pt scheduled for Mediport placement this upcoming Thursday (04/18), so if slow to improve, may benefit from continued hospitalization until port placement w/ Gen Surg. Gen Surg OK with her being d/c to rehab after her port is placed. Patient's son, Timur, wishes for daily updates --> #[phone] Patient seen in collaboration with Dr. Gutierrez. Please see addendum. I spent a total of 55 minutes coordinating, documenting, and providing care for this patient excluding time spent in the performance of separately billed services. This included personally reviewing all current laboratories and imaging studies, medical reconciliation, outpatient chart review and discussion with specialists. This chart was completed in part utilizing Speech Voice Recognition Software. Grammatical errors, random word insertions, pronoun errors, and incomplete sentences are an occasional consequence of this system due to software limitations, ambient noise, and hardware issues. Any formal questions or concerns about the content, text, or information contained within the body of this dictation should be directly addressed to the provider for clarification. Pt c/o significant discomfort w/ repeated sticks for blood draws. Unless medically necessary, will stop doing daily labs from here on out. Admission and Anticipated Discharge Date Admission Date: March 15, 2024 Supervising Physician Co-Signing Physician Notes Patient seen and examined independently. Discussed with above provider. Patient reports bowel movement after bowel regimen. She denies any abdominal discomfort or pain. She reports generalized fatigue and tiredness. Leukocytosis improved. Discussion was done with surgery regarding Port-A-Cath placement on Thursday as inpatient. I have reviewed the advanced practitioner's documentation, and I agree with, and take responsibility for the plan of care I spent a total of 30 minutes coordinating, documenting, and providing care for this patient excluding time spent in the performance of separately billed services. All of the aforementioned completed while collaborating with the assigned advanced practitioner for a full treatment plan Subjective Patient seen at bedside in room W356-2. Patient still c/o generalized weakness/body aches and fatigue. She is still experiencing some shortness of breath today, more so w/ exertion. Currently on 3L O2, SpO2 holding steady ~96% throughout our discussion. She denies any fever, chills or chest pain at this time. As per RT's discussion with the patient yesterday, she would still like to have her nebulizer treatments on a PRN basis. She is no longer complaining of constipation. [facility] nursing staff gave her the "Esteban Lazo GI Cocktail" (consisting of prune juice, apple juice and butter per pt) and that "did the trick." Mentions she had approximately 5 bowel movements overnight. Reports she was on the toilet for what felt like "all night." Would prefer to keep her bowel regimen on a PRN basis for now. She is tired of getting stuck for blood draws. C/o bruising on her L forearm from being stuck repeatedly that still hurts. Patient would like to have an ice pack for this area to help w/ the pain. Would prefer to only have her blood drawn "if it was absolutely necessary." She is looking forward to having her Mediport placed to avoid being stuck so much. Review of Systems Review of Systems: At least ten systems reviewed and negative, except as noted in the HPI. Physical Exam Physical Exam: General: Vitals as above, NAD, sitting up in bed, ill-appearing. A&O x 3, conversing appropriately w/ no dyspneic issues. HEENT: Normocephalic, atraumatic. Has lost most of her hair. Normal inspection, PERRL, conjunctivae normal, anicteric sclerae, mucous membranes moist. Respiratory: On 3L oxygen via face mask, lungs clear to auscultation. Lung sounds diminished b/l, no accessory muscle use. Cardiovascular: Regular rate, rhythm, no murmur, normal peripheral pulses. RLE trace edema, ankle brace in place. Vessels: No JVD. Abdomen/GI: Normal bowel sounds, soft, nontender, no hepatosplenomegaly. Extremities/Musculoskeletal: No cyanosis or clubbing, extremity motor strength intact. Moves all extremities. Neurologic: EOMI, accommodation nl, no face palsy, no dysarthria, CN's II-XI not formally tested but appear intact bilaterally. Skin: Warm, dry. Has some bruising on her L posterior forearm region s/p blood draw, no active bleeding seen. Results & Data Results & Data Vital Signs (Past 12 Hours) Vital Signs Temp Pulse Resp BP Pulse Ox O2 Del Method O2 Flow Rate 04/14/24 07:47 37.1 C 75 18 127/55 L 99 Nasal Cannula 3 04/14/24 03:37 36.6 C 69 16 138/71 95 Oxymask 2 04/13/24 22:59 36.5 C 62 18 109/65 100 Oxymask 2 Laboratory Results Short CBC 04/14/24 Range/Units 06:39 WBC 6.47 (4.8-10.8) K/ul Hgb 9.2 L (12.0-16.0) g/dl Hct 29.1 L (37.0-47.0) % Plt Count 270 (130-400) K/uL BMP 04/14/24 06:39 Sodium 139 Potassium 3.8 Chloride 98 Carbon Dioxide 38 H BUN 15 Creatinine 0.43 L Glucose 97 Calcium 8.7 Diagnostic Findings Chest X-Ray 03/15/24 14:08 XR chest 1V portable CLINICAL HISTORY: Dyspnea COMPARISON STUDY: Chest radiograph and chest CT September 25, 2022. FINDINGS: Status post median sternotomy. Mild cardiomegaly is unchanged. Asymmetric right hilar mass-like enlargement is present. Left hilum is normal. There is a trace right pleural effusion. No pneumothorax is present. Pulmonary vascular congestion. Left basilar opacity similar to prior exam and favors atelectasis. IMPRESSION: 1. Asymmetric right hilar mass-like enlargement. Although this could be due to pulmonary vessels, a mass or lymphadenopathy cannot be excluded. Chest CT with contrast is recommended. 2. Cardiomegaly with pulmonary vascular congestion. Trace right pleural effusion. 3. Left basilar opacity which likely reflects atelectasis. ACT 112: Positive. There are findings on this exam that require communication between the performing entity and the patient following Patient Test Result Information Act ([place] Act 112) guidelines. Electronically signed by: Nam Delgado M.D. 03/15/2024 2:42 PM Chest CTA 03/15/24 15:02 CHEST CTA for PULMONARY ARTERIES CT DOSE: 727.07 mGy.cm HISTORY: Shortness of breath. TECHNIQUE: Multiaxial CT images of the chest were performed following the intravenous administration of contrast to evaluate the pulmonary arteries. 3D/Maximal intensity projection images were also obtained. Sagittal and coronal reformations were also reviewed. A dose lowering technique was utilized adhering to the principles of ALARA. COMPARISON STUDY: Chest CTA 09/25/2022. FINDINGS: Postoperative changes consistent with graft repair of an ascending thoracic aortic aneurysm. No evidence for an aortic dissection. 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 This remains unchanged. No filling defects within the pulmonary arteries to suggest a pulmonary embolus. However, there is mass effect within the right central pulmonary arteries due to the mediastinal/hilar mass with moderate narrowing of the right upper lobe pulmonary arteries. The heart is normal in size. There is a small right pleural effusion. No pericardial effusion. Limited views of the upper abdomen demonstrate normal liver and spleen. Right anterior diaphragmatic lymphadenopathy measuring up to 2.2 cm consistent with metastatic disease. A few subcentimeter thyroid nodules. These do not meet CT criteria for follow-up. Normal caliber esophagus. There are poststernotomy changes. No suspicious lytic or blastic osseous lesions. Emphysema. No pneumothorax. The right upper lobe bronchus is opacified/obstructed by the right hilar mass. There is also moderate to severe narrowing of the bronchus intermedius due to an endobronchial component of the right hilar mass. This is best seen image 114. The left central airways are patent. There is a 2.1 cm nodule within the left upper lobe abutting the mediastinum on image 153. This likely represents metastatic disease. Biapical pleural-parenchymal nodular densities remain stable and favor scarring. Small focal peripheral consolidation within the right upper lobe anteriorly may represent a postobstructive pneumonitis. There is been interval development of a large right hilar/upper lobe mass which invades into the mediastinum. This results in approximately 75% narrowing of the SVC without evidence for occlusion at this time. This mass extends in to the right paratracheal and subcarinal locations. No left hilar lymphadenopathy. This mass measures approximately 10 x 8 cm and encases multiple right pulmonary arteries and invades into the right upper lobe bronchi and bronchus intermedius. IMPRESSION: 1. No evidence for pulmonary embolus. 2. Interval development of a large right hilar/upper lobe mass measuring 10 x 8 cm described above. This is highly suspicious for a primary bronchogenic malignancy. 3. Right anterior diaphragmatic lymphadenopathy likely represents metastatic disease. 4. There is a 2.1 cm left upper lobe nodule abutting the mediastinum likely representing metastatic disease. 5. Small right pleural effusion which may represent a malignant pleural effusion. 6. This right hilar/upper lobe mass results in mass effect along the right pulmonary arteries as well as invasion into the right upper lobe bronchus and bronchus intermedius as described above. 7. This mass also results in severe narrowing of the SVC without evidence for occlusion at this time. 8. Additional findings as described above. ACT 112: Negative or not required by law. Electronically signed by: Martin Granados M.D. 03/15/2024 5:06 PM Abdomen/Pelvis CT 03/15/24 19:03 CT OF THE ABDOMEN AND PELVIS WITH CONTRAST CLINICAL HISTORY: Evaluate for metastatic disease. COMPARISON STUDY: CTA of the abdomen and pelvis September 25, 2022. Abdominal ultrasound June 22, 2017. TECHNIQUE: Following IV administration of 89 mL of Optiray, axial images of the abdomen and pelvis were obtained from the lung bases to the proximal femurs. Images were reviewed in the axial, sagittal, and coronal planes. IV contrast was administered without complication. Automated exposure control was utilized for the study. A dose lowering technique was utilized adhering to the principles of ALARA. Oral contrast was administered. FINDINGS: A small right pleural effusion is. A 2.8 x 1.9 cm right cardiophrenic angle lymph node on image 42 of 361 is present. There are no suspicious hepatic lesions. 9 mm lateral segment hypodense hepatic lesion is unchanged and CTA of September 25, 2022. This is benign. Spleen, kidneys and pancreas are unremarkable with exception of the left lower pole renal cyst. Left adrenal nodule measures 1.9 cm. Although suboptimally assessed on prior exam, this was likely present on CT of September 25, 2022. Mild nodularity of the right adrenal gland is also likely similar to prior CTA. The infrarenal abdominal aorta is ectatic, measuring 2.9 cm. There is extensive aortoiliac calcified plaque. No abdominal or pelvic lymphadenopathy is present. Prominent left retroperitoneal vessels are unchanged. No evidence for a bowel obstruction. The caliber and wall thickness of small and large bowel are normal. Postoperative findings within the spine are incidentally noted. No suspicious lesions are identified within the visualized skeletal structures. IMPRESSION: 1. No definite evidence for metastatic disease within the abdomen or pelvis. 2. 1.9 cm left adrenal nodule. This was likely present on CT of September 25, 2022. Although likely benign, this could be assessed with a PET/CT as indicated. 3. Pathologic right cardiophrenic angle lymph node. Small right pleural ef fusion. A malignant effusion cannot be excluded. ACT 112: Negative or not required by law. Electronically signed by: Nam Delgado M.D. 03/16/2024 7:[address] 03/16/24 08:29 CT head/brain wo/w con CT DOSE: 3111.05 mGy.cm CLINICAL HISTORY: Lung cancer. Assess for metastatic disease. TECHNIQUE: Multiaxial CT images of the head were performed both before and after intravenous administration of contrast. A dose lowering technique was utilized adhering to the principles of ALARA. COMPARISON STUDY: None. FINDINGS: Mild mucosal thickening within the ethmoid air cells. There are few opacified right inferior mastoid air cells. Multiple opacified left mastoid air cells are noted. No suspicious lytic or blastic osseous lesions. No calvarial f ractures. There is mild motion artifact. The ventricles and sulci are within normal limits. There is no mass, hematoma, midline shift, acute infarct. Postcontrast sequences show no areas of abnormal enhancement. IMPRESSION: No evidence for intracranial metastatic disease. ACT 112: Negative or not required by law. Electronically signed by: Martin Granados M.D. 03/16/2024 4:[address] 03/16/24 21:54 Exam(s): CT HEAD Without Contrast EXAM: CT Head Without Intravenous Contrast CLINICAL HISTORY: Reason for exam: CVA. TECHNIQUE: Axial computed tomography images of the head/brain without intravenous contrast. CTDI is 45.33 mGy and DLP is 677.48 mGy-cm. Automated exposure control was utilized for the study. A dose lowering technique was utilized adhering to the principles of ALARA. COMPARISON: 03/16/2024 FINDINGS: Brain: No hemorrhage, extra-axial fluid collection, mass effect, or edema. Ventricles: Unremarkable. Bones/joints: Unremarkable. No fracture. Soft tissues: Unremarkable. Sinuses: No acute sinusitis. Mastoid air cells: Left mastoid effusion. IMPRESSION: 1. No acute intracranial abnormality. 2. Left mastoid effusion. Electronically signed by: Tom Nguyen MD 03/16/24 22:39 PM Head CTA 03/16/24 21:54 Exam(s): CTA HEAD With Contrast IV Amt: 116 ml opti 320 EXAM: CT Angiography Head With Intravenous Contrast CLINICAL HISTORY: Reason for exam: CVA?. TECHNIQUE: Axial computed tomographic angiography images of the head with intravenous contrast. CTDI is 58.49 mGy and DLP is 624.41 mGy-cm. Automated exposure control was utilized for the study. A dose lowering technique was utilized adhering to the principles of ALARA. MIP reconstructed images were created and reviewed. CONTRAST: Patient received 116 ml opti 320 of IV contrast COMPARISON: No relevant prior studies available. FINDINGS: Right internal carotid artery: No limiting atherosclerotic calcifications within the right ICA. No flow-limiting stenosis. No aneurysm. Right anterior cerebral artery: Unremarkable. No occlusion or significant stenosis. No aneurysm. Right middle cerebral artery: Unremarkable. No occlusion or significant stenosis. No aneurysm. Right posterior cerebral artery: Unremarkable. No occlusion or significant stenosis. No aneurysm. Right vertebral artery: Unremarkable as visualized. Left internal carotid artery: Atherosclerotic calcifications within the left ICA. No flow-limiting stenosis. No aneurysm. Left anterior cerebral artery: Unremarkable. No occlusion or significant stenosis. No aneurysm. Left middle cerebral artery: Unremarkable. No occlusion or significant stenosis. No aneurysm. Left posterior cerebral artery: Unremarkable. No occlusion or significant stenosis. No aneurysm. Left vertebral artery: No flow-limiting atherosclerotic calcifications within the left vertebral artery. Basilar artery: Unremarkable. No occlusion or significant stenosis. No aneurysm. IMPRESSION: No acute findings in the arteries of the head/brain. Electronically signed by: Tom Nguyen MD 03/16/24 22:41 PM Neck CTA 03/16/24 21:54 Exam(s): CTA NECK With Contrast IV Amt: 116 ml opti 320 EXAM: CT Angiography Neck With Intravenous Contrast CLINICAL HISTORY: Reason for exam: CVA?. TECHNIQUE: Routine carotid CT angiography protocol was performed with intravenous contrast. NASCET criteria using the distal ICAs for comparison were used for evaluation of stenoses. CTDI is 64.34 mGy and DLP is 961.59 mGy-cm. Automated exposure control was utilized for the study. A dose lowering technique was utilized adhering to the principles of ALARA. MIP reconstructed images were created and reviewed. CONTRAST: Patient received 116 ml opti 320 of IV contrast COMPARISON: None. FINDINGS: VASCULATURE: Right common carotid artery: Unremarkable. No occlusion or significant stenosis. No dissection. Right internal carotid artery: Atherosclerotic calcifications at the right carotid bulb. No flow-limiting stenosis. Right external carotid artery: Severe stenosis at the ostia of the right external carotid artery. Right vertebral artery: Unremarkable. No occlusion or significant stenosis. No dissection. Left common carotid artery: Unremarkable. No occlusion or significant stenosis. No dissection. Left internal carotid artery: Non flow-limiting atherosclerotic calcifications within the proximal left ICA. Left vertebral artery: Unremarkable. No occlusion or significant stenosis. No dissection. NECK: Bones/joints: Unremarkable. No acute fracture. Soft tissues: Unremarkable. Lung apices: Nodular airspace opacities in the upper lobes and a small right pleural effusion. CAROTID STENOSIS REFERENCE USING NASCET CRITERIA: % ICA stenosis = (1 - narrowest ICA diameter/diameter of distal cervical ICA) x 100. Mild - <50% stenosis. Moderate - 50-69% stenosis. Severe - 70-94% stenosis. Near occlusion - 95-99% stenosis. Occluded - 100% stenosis. IMPRESSION: 1. No flow-limiting stenosis. 2. Nodular airspace opacities in the upper lobes and a small right pleural effusion. Electronically signed by: Tom Nguyen MD 03/16/24 22:43 PM Chest X-Ray 03/17/24 09:01 XR chest 1V portable CLINICAL HISTORY: resp distress TECHNIQUE: Single frontal radiograph of the chest was obtained. Comparison: Comparison is made to chest radiograph 03/15/[address] chest 03/15/2024 FINDINGS: No lines and tubes are seen. Right mediastinal mass is seen, unchanged from prior exam. Airspace opacities are in the right greater than left lower lobe. Small right and trace left pleural effusions are seen. IMPRESSION: 1. Interval increase in small right and trace left pleural effusions with underlying airspace opacities which may represent atelectasis. 2. Again seen is right hilar mass. ACT 112: Negative or not required by law. Electronically signed by: Umesh De Leon M.D. 03/17/2024 9:28 AM Chest X-Ray 03/20/24 11:24 XR chest 1V portable CLINICAL HISTORY: ongoing resp symptoms, r/o effusion TECHNIQUE: Single frontal radiograph of the chest was obtained. Comparison: Comparison is made to chest radiograph 03/17/2024 FINDINGS: Median sternotomy wires are unchanged. Calcified aortic knob is seen. Right hilar mass is seen. Right lower lung airspace opacity is seen compatible with atelectasis. Small right pleural effusion, unchanged. IMPRESSION: 1. Stable small right pleural effusion. Left pleural effusion is more well seen. 2. Right hilar mass is again seen. ACT 112: Negative or not required by law. Electronically signed by: Umesh De Leon M.D. 03/20/2024 12:[address] 03/27/24 20:04 Exam(s): CT HEAD Without Contrast EXAM: CT Head Without Intravenous Contrast CLINICAL HISTORY: Reason for exam: schmid, jerks, eliquis. TECHNIQUE: Axial computed tomography images of the head/brain without intravenous contrast. CTDI is 38.76 mGy and DLP is 547.75 mGy-cm. Automated exposure control was utilized for the study. A dose lowering technique was utilized adhering to the principles of ALARA. COMPARISON: Comparison made to prior head CT from March 16, 2024. FINDINGS: Study is limited secondary to motion artifact. Brain: Unremarkable. No hemorrhage. Mild nonspecific white matter changes. No edema. Ventricles: Mild ventricular megaly. Bones/joints: Unremarkable. No acute fracture. Soft tissues: Unremarkable. Sinuses: Chronic right ethmoid sinusitis with single opacified air cell. No acute sinusitis. Mastoid air cells: There is a large amount of fluid in the left mastoid air cells. No mastoid effusion. IMPRESSION: No evidence of acute intracranial pathology. Electronically signed by: Kamala Perea MD 03/28/24 03:01 AM Chest X-Ray 03/31/24 15:27 XR chest 1V portable HISTORY: 83 years-old Female Eval for edema with hx of valvular disease COMPARISON: 03/20/2024, CTA chest 03/15/2024 TECHNIQUE: AP view of the chest FINDINGS: Cardiac silhouette is enlarged. Median sternotomy. No pneumothorax. Trace left and moderate right pleural effusions are similar to prior. Persistent right perihilar and right basilar consolidation. Decreased size of the large right hilar mass. Mild ill-defined peripheral opacities in the left midlung. Pulmonary vascular congestion. IMPRESSION: 1. Cardiomegaly with pulmonary vascular congestion. 2. Ill-defined peripheral opacities of the left mid lung may be artifactual or represent pneumonia. 3. Moderate right-sided pleural effusion with persistent right basilar consolidation. 4. Large right-sided hilar mass is better seen on the comparison CTA of the chest. ACT 112: Negative or not required by law. The above report was generated using voice recognition software. It may contain grammatical, syntax or spelling errors. Electronically signed by: Jordin Vela M.D. 03/31/2024 4:55 PM Chest X-Ray 04/02/24 07:00 SINGLE VIEW CHEST CLINICAL HISTORY: Follow-up congestive failure. FINDINGS: An AP, portable, upright chest radiograph is compared to study dated 03/31/2024 and correlated with chest CT dated 03/15/2024. The patient is status post midline sternotomy. The heart is enlarged and atherosclerotic calcification of the thoracic aorta. Pulmonary vascular congestion persists emphysema and chronic interstitial thickening is similar to previous. A large mediastinal mass lesion was much better assessed on the recent chest CT. The right and moderate left pleural effusions with dependent consolidation. No pneumothorax is seen. The skeletal structures are osteopenic. The bony thorax is grossly intact. IMPRESSION: 1. Cardiomegaly and emphysema with pulmonary vascular congestion. This is similar to 03/31/2024. 2. Right large left pleural effusions with dependent consolidation. 3. A large mediastinal mass lesion was better assessed on the recent chest CT. ACT 112: Negative or not required by law. Electronically signed by: Manjinder Myers M.D. 04/02/2024 7:14 AM Chest X-Ray 04/06/24 12:35 XR chest 1V portable HISTORY: 83 years-old Female SOB acute shortness of breath COMPARISON: Chest radiograph 04/02/2024, CTA chest 03/15/2024. TECHNIQUE: AP view the chest FINDINGS: Cardiac silhouette is enlarged. Median sternotomy. Layering right pleural effusion with right basilar consolidation redemonstrated, mildly improved. Edema. Pulmonary vascular congestion with interstitial coarsening. Mediastinal mass better seen on prior chest CT. IMPRESSION: 1. Cardiomegaly with pulmonary vascular congestion. 2. Unchanged right pleural effusion with mildly improved right basilar opacities. 3. Mediastinal mass is better assessed on prior chest CT. ACT 112: Negative or not required by law. The above report was generated using voice recognition software. It may contain grammatical, syntax or spelling errors. Electronically signed by: Jordin Vela M.D. 04/06/2024 2:27 PM Chest X-Ray 04/07/24 08:00 XR chest 1V portable CLINICAL HISTORY: SOB/small cell lung CA/pleural effusions COMPARISON STUDY: Chest CT March 15, 2024. Chest radiograph April 06, 2024. FINDINGS: There is no pneumothorax. Small right and trace left pleural effusions are similar to prior exam. Cardiomediastinal silhouette is stable. The mediastinal mass has decreased in size since chest CT of March 15, 2024. Slight asymmetric right hilar enlargement. There is pulmonary vascular congestion. This is unchanged. No consolidation is identified to suggest pneumonia. IMPRESSION: 1. Pulmonary vascular congestion, similar to prior exam. 2. No change in small right and trace left pleural effusions. ACT 112: Negative or not required by law. Electronically signed by: Nam Delgado M.D. 04/07/2024 7:[address] 04/11/24 10:23 CT SCAN OF THE CHEST WITHOUT IV CONTRAST CLINICAL HISTORY: Cough. Dyspnea. History of lung cancer. COMPARISON STUDY: Chest x-ray dated 04/07/2024. Prior chest CT scans, most recently dated 03/15/2024. TECHNIQUE: CT scan of the thorax was performed from the thoracic inlet to the upper abdomen. Images are reviewed in the axial, sagittal, and coronal planes. IV contrast was not administered for this examination as per the referring clinician. A dose lowering technique was utilized adhering to the principles of ALARA. CT DOSE: 274.29 mGy.cm FINDINGS: Thyroid: Enlarged and heterogeneous indicating goiter. Thoracic aorta: Postsurgical changes seen at the aortic root. There is advanced atherosclerotic calcification of the thoracic aorta. 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 This measures up to 4.7 cm in diameter. The remainder of the thoracic aorta is normal in caliber comment heart demonstrates standard 3-vessel anatomy. Heart: The patient is status post midline sternotomy. The heart is enlarged and without pericardial effusion. The coronary arteries are densely calcified. There is diminished attenuation of the cardiac blood pool as compared to the myocardium suggesting anemia. Lungs and pleural spaces: Moderately advanced emphysematous changes again noted. There are small right and trace left pleural effusions with dependent atelectasis. Patchy airspace opacities are seen in the right lower lobe. The trachea is clear. Secretions are noted in the left mainstem bronchus. A right upper lobe paramediastinal mass lesion with mediastinal invasion has significantly decreased in size from 03/15/2024. This now measures approximately 7 x 4 cm in maximum axial dimension. A 2.2 cm spiculated mass is again seen in the paramediastinal left upper lobe on image #59. This is similar to previous. A 4 mm right middle lobe nodule on image #145 is unchanged. An 11 mm nodular opacity is clearly seen previously. Foci of parenchymal scarring are seen throughout both lungs. Mediastinum: As noted above a right paramediastinal mass invades the right aspect of the mediastinum. Ilda: Not well assessed without IV contrast. Axillae: There is no axillary lymphadenopathy. Upper abdomen: Right cardiophrenic lymphadenopathy has decreased in size from previous. The largest node on image #194 now measures up to 1.3 cm. Partially visualized upper abdominal viscera is otherwise within normal limits. Skeletal structures: The skeletal structures are osteopenic. Degenerative change and kyphoscoliosis is noted in the spine. No lytic or blastic bony lesions are seen. IMPRESSION: 1. Cardiomegaly and emphysema. 2. A large right upper lobe paramediastinal mass lesion with mediastinal indication a significantly decreased in size as compared to 03/15/2024. Metastatic right cardiophrenic lymphadenopathy has also decreased from previous. 3. Small right and trace left pleural effusions. 4. Patchy airspace opacities in the right lower lobe are nonspecific and may be on an infectious/inflammatory basis. Correlate clinically. Attention at follow- up will be required. 5. An 11 mm left lower lobe nodular opacity is new from previous and may also be inflammatory. Attention at follow-up will be required. 6. A 2.2 cm spiculated lesion in the paramediastinal left upper lobe is un changed. This remains highly suspicious for neoplasm. 7. Additional findings as above. ACT 112: Negative or not required by law. Electronically signed by: Manjinder Myers M.D. 04/11/2024 2:[address] 04/12/24 11:36 CT SCAN OF THE BRAIN WITHOUT IV CONTRAST CLINICAL HISTORY: Headache. COMPARISON STUDY: CT of the brain dated 03/27/2024. TECHNIQUE: Unenhanced axial CT scan of the brain is performed from the vertex to the skull base. A dose lowering technique was utilized adhering to the principles of ALARA. CT DOSE: 625.8 mGy.cm FINDINGS: Brain parenchyma: There is age-related involutional change noting mild subcortical and periventricular microangiopathic disease. There is no hemorrhage, mass effect, or evidence of acute territorial ischemia by CT criteria. Childress-white matter differentiation is preserved. No extra-axial fluid collection is seen. Ventricles, sulci, cisterns: Prominent secondary to involutional change. Intracranial vasculature: There is atherosclerotic calcification of the cavernous carotid and vertebral arteries. Calvarium: Unremarkable. Sinuses and mastoids: There is mucosal thickening within the right posterior ethmoid sinuses. The remaining visualized paranasal sinuses are clear. There is a large left mastoid effusion. A small amount of effusion is seen on the right. Orbits: The bony orbits are grossly intact. There are bilateral ocular lens implants. IMPRESSION: 1. There is no hemorrhage, mass effect, or evidence of acute territorial ischemia by CT criteria. 2. Left larger than right mastoid effusions are similar to previous. ACT 112: Negative or not required by law. Electronically signed by: Manjinder Myers M.D. 04/12/2024 1:12 PM Medications Administered Acetaminophen (Acetaminophen 500 Mg Tab) 1,000 mg PO TID PRN PRN Reason: Pain or Fever Stop: 04/14/24 20:33 Last Admin: 04/14/24 09:02 Dose: 1,000 mg Documented By: Admin: 04/14/24 03:00 Dose: 1,000 mg Documented By: Admin: 04/13/24 17:35 Dose: 1,000 mg Documented By: Admin: 04/13/24 08:13 Dose: 1,000 mg Documented By: Admin: 04/12/24 13:32 Dose: 1,000 mg Documented By: Admin: 04/12/24 04:32 Dose: 1,000 mg Documented By: Admin: 04/11/24 08:00 Dose: 1,000 mg Documented By: Admin: 04/10/24 15:20 Dose: 1,000 mg Documented By: Admin: 04/09/24 03:24 Dose: 1,000 mg Documented By: Admin: 04/07/24 23:20 Dose: 1,000 mg Documented By: Admin: 04/07/24 00:23 Dose: 1,000 mg Documented By: Admin: 04/05/24 22:32 Dose: 1,000 mg Documented By: CRH Albuterol (Albuterol Hfa 8 Gm Inhaler) 2 puffs INH Q4 PRN PRN Reason: shortness of breath or wheezin Stop: 04/14/24 20:33 Last Admin: 04/11/24 20:47 Dose: 2 puffs Documented By: Admin: 04/07/24 08:06 Dose: 2 puffs Documented By: Admin: 04/06/24 22:13 Dose: 2 puffs Documented By: Admin: 04/05/24 22:50 Dose: 2 puffs Documented By: Admin: 04/05/24 18:13 Dose: 2 puffs Documented By: Admin: 04/04/24 22:39 Dose: 2 puffs Documented By: Admin: 04/03/24 23:30 Dose: 2 puffs Documented By: Admin: 04/03/24 16:10 Dose: 2 puffs Documented By: Admin: 04/02/24 21:56 Dose: 2 puffs Documented By: Admin: 04/02/24 04:59 Dose: 2 puffs Documented By: Admin: 04/01/24 21:03 Dose: 2 puffs Documented By: Admin: 03/31/24 22:18 Dose: 2 puffs Documented By: Admin: 03/31/24 16:43 Dose: 2 puffs Documented By: Admin: 03/31/24 04:01 Dose: 2 puffs Documented By: Admin: 03/30/24 21:54 Dose: 2 puffs Documented By: Admin: 03/29/24 14:17 Dose: 2 puffs Documented By: EML(2) Admin: 03/29/24 05:05 Dose: 2 puffs Documented By: Admin: 03/29/24 00:01 Dose: 2 puffs Documented By: Admin: 03/28/24 19:37 Dose: 2 puffs Documented By: Admin: 03/27/24 23:22 Dose: 2 puffs Documented By: Admin: 03/27/24 18:32 Dose: 2 puffs Documented By: Admin: 03/26/24 23:51 Dose: 2 puffs Documented By: Admin: 03/25/24 20:42 Dose: 2 puffs Documented By: ARPIT(2) Admin: 03/25/24 05:49 Dose: 2 puffs Documented By: Admin: 03/24/24 04:48 Dose: 2 puffs Documented By: Admin: 03/23/24 20:25 Dose: 2 puffs Documented By: Admin: 03/20/24 22:28 Dose: 2 puffs Documented By: Admin: 03/20/24 00:50 Dose: 2 puffs Documented By: Admin: 03/19/24 19:59 Dose: 2 puffs Documented By: Admin: 03/19/24 05:08 Dose: 2 puffs Documented By: Admin: 03/17/24 21:16 Dose: 2 puffs Documented By: BWT Amiodarone HCl (Amiodarone 200 Mg Tab) 200 mg PO DAILY JOSE Stop: 04/15/24 08:59 Last Admin: 04/14/24 09:02 Dose: 200 mg Documented By: Admin: 04/13/24 08:53 Dose: 200 mg Documented By: Admin: 04/12/24 08:05 Dose: 200 mg Documented By: RRCassia Admin: 04/11/24 08:00 Dose: 200 mg Documented By: Admin: 04/10/24 08:51 Dose: 200 mg Documented By: Admin: 04/09/24 08:34 Dose: 200 mg Documented By: Admin: 04/08/24 09:12 Dose: 200 mg Documented By: Admin: 04/07/24 08:12 Dose: 200 mg Documented By: Admin: 04/06/24 08:28 Dose: 200 mg Documented By: Admin: 04/05/24 09:04 Dose: 200 mg Documented By: Admin: 04/04/24 08:10 Dose: 200 mg Documented By: Admin: 04/03/24 07:30 Dose: 200 mg Documented By: Admin: 04/02/24 09:18 Dose: 200 mg Documented By: Admin: 04/01/24 09:19 Dose: 200 mg Documented By: Admin: 03/31/24 07:47 Dose: 200 mg Documented By: Admin: 03/30/24 08:24 Dose: 200 mg Documented By: Admin: 03/29/24 08:25 Dose: 200 mg Documented By: RRCassia Admin: 03/28/24 08:14 Dose: 200 mg Documented By: Admin: 03/27/24 08:00 Dose: 200 mg Documented By: Admin: 03/26/24 08:19 Dose: 200 mg Documented By: Admin: 03/25/24 11:30 Dose: 200 mg Documented By: Admin: 03/24/24 08:27 Dose: 200 mg Documented By: Admin: 03/23/24 08:11 Dose: 200 mg Documented By: Admin: 03/22/24 08:01 Dose: 200 mg Documented By: Admin: 03/21/24 09:04 Dose: 200 mg Documented By: Admin: 03/20/24 10:27 Dose: 200 mg Documented By: Admin: 03/19/24 09:40 Dose: 200 mg Documented By: Admin: 03/18/24 07:24 Dose: 200 mg Documented By: Admin: 03/17/24 13:19 Dose: Not Given Documented By: Admin: 03/16/24 08:04 Dose: 200 mg Documented By: OAC Amlodipine Besylate (Amlodipine Besylate 5 Mg Tab) 2.5 mg PO QAM [facility] Stop: 04/21/24 08:59 Last Admin: 04/11/24 08:01 Dose: 2.5 mg Documented By: Admin: 04/10/24 08:51 Dose: 2.5 mg Documented By: Admin: 04/09/24 08:33 Dose: 2.5 mg Documented By: Admin: 04/08/24 09:13 Dose: 2.5 mg Documented By: Admin: 04/07/24 08:12 Dose: 2.5 mg Documented By: Admin: 04/06/24 08:28 Dose: 2.5 mg Documented By: RLBharath Admin: 04/05/24 09:02 Dose: 2.5 mg Documented By: Admin: 04/04/24 08:09 Dose: 2.5 mg Documented By: Admin: 04/03/24 07:31 Dose: 2.5 mg Documented By: Admin: 04/02/24 09:17 Dose: 2.5 mg Documented By: Admin: 04/01/24 09:19 Dose: 2.5 mg Documented By: Admin: 03/31/24 07:47 Dose: 2.5 mg Documented By: Admin: 03/30/24 08:25 Dose: 2.5 mg Documented By: Admin: 03/29/24 08:25 Dose: 2.5 mg Documented By: Admin: 03/28/24 08:14 Dose: 2.5 mg Documented By: Admin: 03/27/24 08:00 Dose: 2.5 mg Documented By: Admin: 03/26/24 08:19 Dose: 2.5 mg Documented By: Admin: 03/25/24 09:18 Dose: 2.5 mg Documented By: Admin: 03/24/24 08:26 Dose: 2.5 mg Documented By: Admin: 03/23/24 08:09 Dose: 2.5 mg Documented By: NIKOLAI Apixaban (Apixaban 5 Mg Tablet) 5 mg PO BID JOSE Stop: 04/17/24 20:59 Last Admin: 04/14/24 09:02 Dose: 5 mg Documented By: Admin: 04/13/24 20:31 Dose: 5 mg Documented By: Admin: 04/13/24 08:53 Dose: 5 mg Documented By: Admin: 04/12/24 20:33 Dose: 5 mg Documented By: Admin: 04/12/24 08:06 Dose: 5 mg Documented By: Admin: 04/11/24 20:47 Dose: 5 mg Documented By: Admin: 04/11/24 08:02 Dose: 5 mg Documented By: Admin: 04/10/24 20:31 Dose: 5 mg Documented By: Admin: 04/10/24 08:50 Dose: 5 mg Documented By: Admin: 04/09/24 20:51 Dose: 5 mg Documented By: Admin: 04/09/24 08:33 Dose: 5 mg Documented By: Admin: 04/08/24 20:26 Dose: 5 mg Documented By: Admin: 04/08/24 09:11 Dose: 5 mg Documented By: Admin: 04/07/24 21:35 Dose: 5 mg Documented By: Admin: 04/07/24 08:11 Dose: 5 mg Documented By: Admin: 04/06/24 20:26 Dose: 5 mg Documented By: Admin: 04/06/24 08:29 Dose: 5 mg Documented By: Admin: 04/05/24 20:39 Dose: 5 mg Documented By: Admin: 04/05/24 09:04 Dose: 5 mg Documented By: Admin: 04/04/24 20:03 Dose: 5 mg Documented By: Admin: 04/04/24 08:09 Dose: 5 mg Documented By: Admin: 04/03/24 21:34 Dose: 5 mg Documented By: Admin: 04/03/24 07:29 Dose: 5 mg Documented By: Admin: 04/02/24 20:56 Dose: 5 mg Documented By: Admin: 04/02/24 09:18 Dose: 5 mg Documented By: Admin: 04/01/24 20:24 Dose: 5 mg Documented By: CWFestus Admin: 03/31/24 21:15 Dose: 5 mg Documented By: CWFestus Admin: 03/31/24 07:48 Dose: 5 mg Documented By: Admin: 03/30/24 20:35 Dose: 5 mg Documented By: JPUmesh Admin: 03/30/24 08:24 Dose: 5 mg Documented By: Admin: 03/29/24 20:19 Dose: 5 mg Documented By: Admin: 03/29/24 08:26 Dose: 5 mg Documented By: Admin: 03/28/24 21:38 Dose: 5 mg Documented By: Admin: 03/28/24 08:14 Dose: 5 mg Documented By: Admin: 03/26/24 20:09 Dose: 5 mg Documented By: Admin: 03/26/24 08:19 Dose: 5 mg Documented By: Admin: 03/25/24 20:45 Dose: 5 mg Documented By: CRH(2) Admin: 03/25/24 09:19 Dose: 5 mg Documented By: Admin: 03/24/24 20:25 Dose: 5 mg Documented By: Admin: 03/24/24 08:30 Dose: 5 mg Documented By: Admin: 03/23/24 20:08 Dose: 5 mg Documented By: Admin: 03/23/24 08:11 Dose: 5 mg Documented By: Admin: 03/22/24 21:00 Dose: 5 mg Documented By: Admin: 03/22/24 08:01 Dose: 5 mg Documented By: Admin: 03/21/24 21:34 Dose: 5 mg Documented By: PRASAD(2) Admin: 03/21/24 09:04 Dose: 5 mg Documented By: Admin: 03/20/24 21:18 Dose: 5 mg Documented By: Admin: 03/20/24 10:27 Dose: 5 mg Documented By: Admin: 03/19/24 20:55 Dose: 5 mg Documented By: Admin: 03/19/24 09:39 Dose: 5 mg Documented By: Admin: 03/18/24 20:10 Dose: 5 mg Documented By: SHAUNA(2) Aspirin (Aspirin 81 Mg Ectab) 81 mg PO QAM JOSE Stop: 04/18/24 08:59 Last Admin: 04/14/24 09:03 Dose: 81 mg Documented By: Admin: 04/13/24 08:53 Dose: 81 mg Documented By: Admin: 04/12/24 08:06 Dose: 81 mg Documented By: RRCassia Admin: 04/11/24 08:02 Dose: 81 mg Documented By: Admin: 04/10/24 08:50 Dose: 81 mg Documented By: Admin: 04/09/24 08:34 Dose: 81 mg Documented By: Admin: 04/08/24 09:13 Dose: 81 mg Documented By: Admin: 04/07/24 08:13 Dose: 81 mg Documented By: Admin: 04/06/24 08:28 Dose: 81 mg Documented By: Admin: 04/05/24 09:04 Dose: 81 mg Documented By: Admin: 04/04/24 09:17 Dose: 81 mg Documented By: Admin: 04/03/24 07:31 Dose: 81 mg Documented By: Admin: 04/02/24 09:19 Dose: 81 mg Documented By: Admin: 04/01/24 09:19 Dose: 81 mg Documented By: Admin: 03/31/24 07:48 Dose: 81 mg Documented By: Admin: 03/30/24 08:24 Dose: 81 mg Documented By: Admin: 03/29/24 08:26 Dose: 81 mg Documented By: RRCassia Admin: 03/28/24 08:13 Dose: 81 mg Documented By: Admin: 03/26/24 08:18 Dose: 81 mg Documented By: Admin: 03/25/24 09:18 Dose: 81 mg Documented By: Admin: 03/24/24 08:28 Dose: 81 mg Documented By: Admin: 03/23/24 08:09 Dose: 81 mg Documented By: Admin: 03/22/24 08:01 Dose: 81 mg Documented By: Admin: 03/21/24 09:04 Dose: 81 mg Documented By: Admin: 03/20/24 10:27 Dose: 81 mg Documented By: Admin: 03/19/24 09:39 Dose: 81 mg Documented By: DTT Atorvastatin Calcium (Atorvastatin 40 Mg Tab) 40 mg PO HS JOSE Stop: 04/16/24 20:59 Last Admin: 04/13/24 20:32 Dose: 40 mg Documented By: Admin: 04/12/24 20:33 Dose: 40 mg Documented By: Admin: 04/11/24 20:47 Dose: 40 mg Documented By: Admin: 04/10/24 20:31 Dose: 40 mg Documented By: MJUmesh Admin: 04/09/24 20:51 Dose: 40 mg Documented By: Admin: 04/08/24 20:26 Dose: 40 mg Documented By: Admin: 04/07/24 21:34 Dose: 40 mg Documented By: Admin: 04/06/24 20:26 Dose: 40 mg Documented By: Admin: 04/05/24 20:39 Dose: 40 mg Documented By: Admin: 04/04/24 20:04 Dose: 40 mg Documented By: Admin: 04/03/24 21:30 Dose: 40 mg Documented By: Admin: 04/02/24 20:56 Dose: 40 mg Documented By: Admin: 04/01/24 20:27 Dose: 40 mg Documented By: Admin: 03/31/24 21:15 Dose: 40 mg Documented By: Admin: 03/30/24 20:35 Dose: 40 mg Documented By: JPUmesh Admin: 03/29/24 20:19 Dose: 40 mg Documented By: Admin: 03/28/24 21:38 Dose: 40 mg Documented By: Admin: 03/27/24 21:13 Dose: 40 mg Documented By: Admin: 03/26/24 20:09 Dose: 40 mg Documented By: Admin: 03/25/24 20:43 Dose: 40 mg Documented By: CRH(2) Admin: 03/24/24 20:25 Dose: 40 mg Documented By: Admin: 03/23/24 20:07 Dose: 40 mg Documented By: Admin: 03/22/24 21:00 Dose: 40 mg Documented By: Admin: 03/21/24 21:35 Dose: 40 mg Documented By: JRADHAMES(2) Admin: 03/20/24 21:17 Dose: 40 mg Documented By: Admin: 03/19/24 20:53 Dose: 40 mg Documented By: Admin: 03/18/24 20:11 Dose: 40 mg Documented By: SHAUNA(2) Admin: 03/17/24 21:37 Dose: 40 mg Documented By: MPC Buspirone HCl (Buspirone 5 Mg Tab) 10 mg PO HS JOSE Stop: 04/14/24 20:59 Last Admin: 04/13/24 20:33 Dose: 10 mg Documented By: Admin: 04/12/24 20:34 Dose: 10 mg Documented By: Admin: 04/11/24 20:46 Dose: 10 mg Documented By: Admin: 04/10/24 20:31 Dose: 10 mg Documented By: Admin: 04/09/24 20:51 Dose: 10 mg Documented By: Admin: 04/08/24 20:26 Dose: 10 mg Documented By: Admin: 04/07/24 21:34 Dose: 10 mg Documented By: Admin: 04/06/24 20:26 Dose: 10 mg Documented By: Admin: 04/05/24 20:39 Dose: 10 mg Documented By: Admin: 04/04/24 20:04 Dose: 10 mg Documented By: Admin: 04/03/24 21:30 Dose: 10 mg Documented By: Admin: 04/02/24 20:57 Dose: 10 mg Documented By: Admin: 04/01/24 20:27 Dose: 10 mg Documented By: Admin: 03/31/24 21:16 Dose: 10 mg Documented By: Admin: 03/30/24 20:35 Dose: 10 mg Documented By: JPUmesh Admin: 03/29/24 20:19 Dose: 10 mg Documented By: Admin: 03/28/24 21:38 Dose: 10 mg Documented By: Admin: 03/27/24 21:13 Dose: 10 mg Documented By: Admin: 03/26/24 20:09 Dose: 10 mg Documented By: Admin: 03/25/24 20:45 Dose: 10 mg Documented By: CRH(2) Admin: 03/24/24 20:25 Dose: 10 mg Documented By: Admin: 03/23/24 20:09 Dose: 10 mg Documented By: Admin: 03/22/24 21:01 Dose: 10 mg Documented By: Admin: 03/21/24 21:34 Dose: 10 mg Documented By: JRADHAMES(2) Admin: 03/20/24 21:18 Dose: 10 mg Documented By: Admin: 03/19/24 20:54 Dose: 10 mg Documented By: Admin: 03/18/24 20:13 Dose: 10 mg Documented By: KS(2) Admin: 03/17/24 21:35 Dose: 10 mg Documented By: Admin: 03/16/24 23:05 Dose: 10 mg Documented By: Admin: 03/15/24 21:54 Dose: 10 mg Documented By: KAYE Ferrous Sulfate (Ferrous Sulfate 325 Mg Tab) 325 mg PO QAM JOSE Stop: 04/24/24 08:59 Last Admin: 04/14/24 09:03 Dose: 325 mg Documented By: Admin: 04/13/24 08:52 Dose: 325 mg Documented By: Admin: 04/12/24 08:06 Dose: 325 mg Documented By: Admin: 04/11/24 08:02 Dose: 325 mg Documented By: Admin: 04/10/24 08:51 Dose: 325 mg Documented By: Admin: 04/09/24 08:34 Dose: 325 mg Documented By: Admin: 04/08/24 09:13 Dose: 325 mg Documented By: Admin: 04/07/24 08:13 Dose: 325 mg Documented By: Admin: 04/06/24 08:28 Dose: 325 mg Documented By: Admin: 04/05/24 09:05 Dose: 325 mg Documented By: Admin: 04/04/24 08:09 Dose: 325 mg Documented By: Admin: 04/03/24 07:30 Dose: 325 mg Documented By: Admin: 04/02/24 09:19 Dose: 325 mg Documented By: Admin: 04/01/24 09:19 Dose: 325 mg Documented By: Admin: 03/31/24 07:47 Dose: 325 mg Documented By: Admin: 03/30/24 08:25 Dose: 325 mg Documented By: Admin: 03/29/24 08:39 Dose: 325 mg Documented By: Admin: 03/28/24 08:14 Dose: 325 mg Documented By: Admin: 03/27/24 08:00 Dose: 325 mg Documented By: Admin: 03/26/24 08:18 Dose: 325 mg Documented By: Admin: 03/25/24 09:19 Dose: 325 mg Documented By: MICHELLE Fluticasone Propionate (Fluticasone Propionate Na Spr 16 Gm Btl) 1 sprays NA HS JOSE Stop: 05/04/24 20:59 Last Admin: 04/13/24 20:34 Dose: 1 sprays Documented By: Admin: 04/12/24 20:34 Dose: 1 sprays Documented By: Admin: 04/11/24 20:47 Dose: 1 sprays Documented By: Admin: 04/10/24 20:31 Dose: 1 sprays Documented By: Admin: 04/09/24 20:51 Dose: 1 sprays Documented By: Admin: 04/08/24 20:26 Dose: 1 sprays Documented By: Admin: 04/07/24 21:35 Dose: 1 sprays Documented By: Admin: 04/06/24 20:28 Dose: 1 sprays Documented By: Admin: 04/05/24 20:40 Dose: 1 sprays Documented By: Admin: 04/04/24 20:08 Dose: 1 sprays Documented By: JASMYN Furosemide (Furosemide 40 Mg/4 Ml Vial) 40 mg IV QAM JOSE Stop: 05/02/24 08:59 Last Admin: 04/02/24 09:26 Dose: 40 mg Documented By: ADÁN Gabapentin (Gabapentin 600 Mg Tab) 600 mg PO DAILY@0900,1700 JOSE Stop: 05/08/24 16:59 Last Admin: 04/14/24 09:03 Dose: 600 mg Documented By: Admin: 04/13/24 17:35 Dose: 600 mg Documented By: Admin: 04/13/24 08:52 Dose: 600 mg Documented By: Admin: 04/12/24 18:26 Dose: 600 mg Documented By: RRCassia Admin: 04/12/24 08:06 Dose: 600 mg Documented By: Admin: 04/11/24 16:48 Dose: 600 mg Documented By: Admin: 04/11/24 08:02 Dose: 600 mg Documented By: Admin: 04/10/24 16:55 Dose: 600 mg Documented By: Admin: 04/10/24 08:50 Dose: 600 mg Documented By: Admin: 04/09/24 16:51 Dose: 600 mg Documented By: Admin: 04/09/24 08:34 Dose: 600 mg Documented By: Admin: 04/08/24 17:21 Dose: 600 mg Documented By: CMV Gabapentin (Gabapentin 300 Mg Cap) 300 mg PO DAILY@1200,2100 JOSE Stop: 05/08/24 11:59 Last Admin: 04/13/24 20:34 Dose: 300 mg Documented By: Admin: 04/13/24 12:06 Dose: 300 mg Documented By: Admin: 04/12/24 22:09 Dose: 300 mg Documented By: Admin: 04/12/24 11:26 Dose: 300 mg Documented By: Admin: 04/11/24 20:47 Dose: 300 mg Documented By: Admin: 04/11/24 11:20 Dose: 300 mg Documented By: Admin: 04/10/24 20:31 Dose: 300 mg Documented By: MJUmesh Admin: 04/10/24 12:29 Dose: 300 mg Documented By: Admin: 04/09/24 20:51 Dose: 300 mg Documented By: Admin: 04/09/24 11:49 Dose: 300 mg Documented By: Admin: 04/08/24 20:26 Dose: 300 mg Documented By: Admin: 04/08/24 13:48 Dose: 300 mg Documented By: CMV Guaifenesin (Guaifenesin 600 Mg Tabcr) 600 mg PO Q12 JOSE Stop: 05/11/24 20:59 Last Admin: 04/14/24 09:03 Dose: 600 mg Documented By: Admin: 04/13/24 20:34 Dose: 600 mg Documented By: Admin: 04/13/24 08:52 Dose: 600 mg Documented By: Admin: 04/12/24 20:34 Dose: 600 mg Documented By: Admin: 04/12/24 08:06 Dose: 600 mg Documented By: Admin: 04/11/24 20:46 Dose: 600 mg Documented By: ARPIT Hydroxyzine HCl (Hydroxyzine Hcl 10 Mg Tab) 10 mg PO QID PRN PRN Reason: Anxiety Stop: 04/28/24 05:03 Last Admin: 04/13/24 22:05 Dose: 10 mg Documented By: Admin: 04/09/24 11:07 Dose: 10 mg Documented By: Admin: 04/08/24 10:57 Dose: 10 mg Documented By: Admin: 04/07/24 09:40 Dose: 10 mg Documented By: AAIlana Admin: 04/06/24 08:26 Dose: 10 mg Documented By: Admin: 04/01/24 20:58 Dose: 10 mg Documented By: Admin: 03/31/24 07:47 Dose: 10 mg Documented By: Admin: 03/30/24 08:26 Dose: 10 mg Documented By: Admin: 03/29/24 05:28 Dose: 10 mg Documented By: HUMBERTO Ondansetron HCl 6 mg/ Dextrose 53 mls @ 200 mls/hr IV Q6H PRN PRN Reason: Nausea And Vomiting - 1st line Stop: 04/20/24 08:17 Last Infusion: 04/11/24 14:36 Dose: Infused Documented By: Admin: 04/11/24 14:10 Dose: 200 mls/hr Documented By: TARA Cefepime HCl 2,000 mg/ Syringe 20 mls @ 5 mls/min IV Q8H JOSE; Protocol Stop: 04/18/24 10:59 Last Admin: 04/14/24 02:29 Dose: 5 mls/min Documented By: Admin: 04/13/24 18:35 Dose: 5 mls/min Documented By: Admin: 04/13/24 11:23 Dose: 5 mls/min Documented By: Admin: 04/13/24 03:00 Dose: 5 mls/min Documented By: Admin: 04/12/24 18:16 Dose: 5 mls/min Documented By: Admin: 04/12/24 11:23 Dose: 5 mls/min Documented By: RRCassia Admin: 04/12/24 02:15 Dose: 5 mls/min Documented By: Admin: 04/11/24 18:43 Dose: 5 mls/min Documented By: LMUmesh Admin: 04/11/24 11:07 Dose: 5 mls/min Documented By: TARA Metronidazole (Flagyl) 500 mg in 100 mls @ 100 mls/hr IV Q8H JOSE; Protocol Stop: 04/18/24 14:59 Last Infusion: 04/14/24 07:05 Dose: Infused Documented By: Admin: 04/14/24 05:58 Dose: 100 mls/hr Documented By: Infusion: 04/13/24 23:10 Dose: Infused Documented By: Admin: 04/13/24 22:02 Dose: 100 mls/hr Documented By: Infusion: 04/13/24 16:38 Dose: Infused Documented By: Admin: 04/13/24 15:38 Dose: 100 mls/hr Documented By: Infusion: 04/13/24 07:02 Dose: Infused Documented By: Admin: 04/13/24 06:02 Dose: 100 mls/hr Documented By: Infusion: 04/12/24 23:38 Dose: Infused Documented By: Admin: 04/12/24 22:11 Dose: 100 mls/hr Documented By: Infusion: 04/12/24 16:25 Dose: Infused Documented By: RRCassia Admin: 04/12/24 15:15 Dose: 100 mls/hr Documented By: Infusion: 04/12/24 07:26 Dose: Infused Documented By: Admin: 04/12/24 06:30 Dose: 100 mls/hr Documented By: Infusion: 04/11/24 23:31 Dose: Infused Documented By: Admin: 04/11/24 22:30 Dose: 100 mls/hr Documented By: Infusion: 04/11/24 16:47 Dose: Infused Documented By: Admin: 04/11/24 15:45 Dose: 100 mls/hr Documented By: TARA Loratadine (Loratadine 10 Mg Tab) 10 mg PO QAM JOSE Stop: 04/28/24 14:44 Last Admin: 04/14/24 09:03 Dose: 10 mg Documented By: Admin: 04/13/24 08:53 Dose: 10 mg Documented By: Admin: 04/12/24 08:06 Dose: 10 mg Documented By: Admin: 04/11/24 08:02 Dose: 10 mg Documented By: Admin: 04/10/24 08:50 Dose: 10 mg Documented By: Admin: 04/09/24 08:32 Dose: 10 mg Documented By: Admin: 04/08/24 09:13 Dose: 10 mg Documented By: Admin: 04/07/24 08:14 Dose: 10 mg Documented By: Admin: 04/06/24 08:28 Dose: 10 mg Documented By: Admin: 04/05/24 09:04 Dose: 10 mg Documented By: Admin: 04/04/24 08:09 Dose: 10 mg Documented By: Admin: 04/03/24 07:31 Dose: 10 mg Documented By: Admin: 04/02/24 09:19 Dose: 10 mg Documented By: Admin: 04/01/24 09:19 Dose: 10 mg Documented By: Admin: 03/31/24 07:47 Dose: 10 mg Documented By: Admin: 03/30/24 07:15 Dose: 10 mg Documented By: Admin: 03/29/24 15:23 Dose: 10 mg Documented By: ROYA Lorazepam (Lorazepam 0.5 Mg Tab) 0.5 mg PO Q6 PRN PRN Reason: Anxiety Stop: 04/14/24 20:33 Last Admin: 04/13/24 02:01 Dose: 0.5 mg Documented By: Admin: 04/11/24 13:40 Dose: 0.5 mg Documented By: Admin: 04/11/24 02:12 Dose: 0.5 mg Documented By: Admin: 03/20/24 00:31 Dose: 0.5 mg Documented By: Admin: 03/19/24 04:48 Dose: 0.5 mg Documented By: SHAUNA(2) Admin: 03/18/24 21:15 Dose: 0.5 mg Documented By: SHAUNA(2) Admin: 03/18/24 12:47 Dose: 0.5 mg Documented By: Admin: 03/18/24 03:32 Dose: 0.5 mg Documented By: NAV Losartan Potassium (Losartan Potassium 50 Mg Tab) 100 mg PO HS JOSE Stop: 04/14/24 20:59 Last Admin: 04/06/24 20:27 Dose: 100 mg Documented By: Admin: 04/05/24 20:38 Dose: 100 mg Documented By: Admin: 04/04/24 20:04 Dose: 100 mg Documented By: Admin: 04/03/24 21:32 Dose: 100 mg Documented By: Admin: 04/02/24 20:58 Dose: 100 mg Documented By: Admin: 04/01/24 20:27 Dose: 100 mg Documented By: Admin: 03/31/24 21:16 Dose: 100 mg Documented By: Admin: 03/30/24 20:35 Dose: 100 mg Documented By: Admin: 03/29/24 20:19 Dose: 100 mg Documented By: Admin: 03/28/24 21:38 Dose: 100 mg Documented By: Admin: 03/27/24 21:13 Dose: 100 mg Documented By: Admin: 03/26/24 20:09 Dose: 100 mg Documented By: Admin: 03/25/24 20:44 Dose: 100 mg Documented By: CRH(2) Admin: 03/24/24 20:25 Dose: 100 mg Documented By: Admin: 03/23/24 20:11 Dose: 100 mg Documented By: Admin: 03/22/24 21:02 Dose: 100 mg Documented By: Admin: 03/21/24 21:36 Dose: 100 mg Documented By: JRADHAMES(2) Admin: 03/20/24 21:19 Dose: 100 mg Documented By: Admin: 03/19/24 20:54 Dose: 100 mg Documented By: Admin: 03/18/24 20:11 Dose: 100 mg Documented By: SHAUNA(2) Admin: 03/17/24 21:36 Dose: 100 mg Documented By: Admin: 03/16/24 23:06 Dose: 100 mg Documented By: AKCassia Admin: 03/15/24 21:55 Dose: 100 mg Documented By: KAYE Magnesium Hydroxide (Magnesium Hydroxide Susp 30 Ml Udc) 30 ml PO Q12H PRN PRN Reason: Constipation Stop: 04/14/24 20:33 Last Admin: 04/12/24 22:14 Dose: 30 ml Documented By: Admin: 04/12/24 08:06 Dose: 30 ml Documented By: Admin: 04/11/24 22:30 Dose: 30 ml Documented By: Admin: 04/10/24 20:30 Dose: 30 ml Documented By: Admin: 04/09/24 20:51 Dose: 30 ml Documented By: Admin: 04/08/24 20:26 Dose: 30 ml Documented By: Admin: 04/06/24 18:47 Dose: 30 ml Documented By: Admin: 04/02/24 22:32 Dose: 30 ml Documented By: Admin: 03/29/24 20:55 Dose: 30 ml Documented By: HUMBERTO Melatonin (Melatonin 3 Mg Tab) 3 mg PO HS PRN PRN Reason: Sleep Stop: 05/07/24 22:55 Last Admin: 04/13/24 22:05 Dose: 3 mg Documented By: Admin: 04/10/24 22:32 Dose: 3 mg Documented By: Admin: 04/10/24 02:02 Dose: 3 mg Documented By: JANES Metoprolol Tartrate (Metoprolol Tartrate 50 Mg Tab) 50 mg PO BID JOSE Stop: 04/14/24 20:59 Last Admin: 04/14/24 09:03 Dose: 50 mg Documented By: Admin: 04/13/24 20:35 Dose: 50 mg Documented By: Admin: 04/13/24 08:52 Dose: 50 mg Documented By: Admin: 04/12/24 20:34 Dose: 50 mg Documented By: Admin: 04/12/24 08:06 Dose: 50 mg Documented By: Admin: 04/11/24 20:46 Dose: 50 mg Documented By: Admin: 04/11/24 08:02 Dose: 50 mg Documented By: Admin: 04/10/24 20:31 Dose: 50 mg Documented By: Admin: 04/10/24 08:51 Dose: 50 mg Documented By: Admin: 04/09/24 20:50 Dose: 50 mg Documented By: Admin: 04/09/24 08:33 Dose: 50 mg Documented By: Admin: 04/08/24 20:26 Dose: 50 mg Documented By: Admin: 04/08/24 09:11 Dose: 50 mg Documented By: Admin: 04/07/24 21:33 Dose: 50 mg Documented By: Admin: 04/07/24 08:11 Dose: 50 mg Documented By: Admin: 04/06/24 20:26 Dose: 50 mg Documented By: Admin: 04/06/24 08:29 Dose: 50 mg Documented By: Admin: 04/05/24 20:38 Dose: 50 mg Documented By: Admin: 04/05/24 09:05 Dose: 50 mg Documented By: Admin: 04/04/24 20:06 Dose: 50 mg Documented By: Admin: 04/04/24 08:09 Dose: 50 mg Documented By: Admin: 04/03/24 21:33 Dose: 50 mg Documented By: Admin: 04/03/24 07:39 Dose: 50 mg Documented By: Admin: 04/02/24 21:00 Dose: 50 mg Documented By: Admin: 04/02/24 09:25 Dose: 50 mg Documented By: Admin: 04/01/24 20:26 Dose: 50 mg Documented By: Admin: 04/01/24 09:19 Dose: 50 mg Documented By: Admin: 03/31/24 21:15 Dose: 50 mg Documented By: Admin: 03/31/24 07:47 Dose: 50 mg Documented By: Admin: 03/30/24 20:35 Dose: 50 mg Documented By: JPUmesh Admin: 03/30/24 08:25 Dose: 50 mg Documented By: Admin: 03/29/24 20:19 Dose: 50 mg Documented By: Admin: 03/29/24 08:27 Dose: 50 mg Documented By: Admin: 03/28/24 21:38 Dose: 50 mg Documented By: Admin: 03/28/24 08:14 Dose: 50 mg Documented By: Admin: 03/27/24 21:13 Dose: 50 mg Documented By: Admin: 03/27/24 07:59 Dose: 50 mg Documented By: Admin: 03/26/24 20:10 Dose: 50 mg Documented By: Admin: 03/26/24 08:18 Dose: 50 mg Documented By: Admin: 03/25/24 20:45 Dose: 50 mg Documented By: CRH(2) Admin: 03/25/24 09:19 Dose: 50 mg Documented By: Admin: 03/24/24 20:24 Dose: 50 mg Documented By: Admin: 03/24/24 08:29 Dose: 50 mg Documented By: Admin: 03/23/24 20:07 Dose: 50 mg Documented By: Admin: 03/23/24 08:11 Dose: 50 mg Documented By: Admin: 03/22/24 21:02 Dose: 50 mg Documented By: Admin: 03/22/24 08:01 Dose: 50 mg Documented By: Admin: 03/21/24 21:36 Dose: 50 mg Documented By: JRADHAMES(2) Admin: 03/21/24 09:04 Dose: 50 mg Documented By: Admin: 03/20/24 21:19 Dose: 50 mg Documented By: Admin: 03/20/24 10:27 Dose: 50 mg Documented By: Admin: 03/19/24 20:57 Dose: 50 mg Documented By: Admin: 03/19/24 09:40 Dose: 50 mg Documented By: Admin: 03/18/24 20:11 Dose: 50 mg Documented By: SHAUNA(2) Admin: 03/18/24 07:23 Dose: 50 mg Documented By: Admin: 03/17/24 21:34 Dose: 50 mg Documented By: Admin: 03/17/24 13:19 Dose: Not Given Documented By: Admin: 03/16/24 23:06 Dose: 50 mg Documented By: Admin: 03/16/24 08:03 Dose: 50 mg Documented By: Admin: 03/15/24 21:55 Dose: 50 mg Documented By: KAYE Miconazole Nitrate (Miconazole Nitrate 2% Cr 30 Gm Tube) 1 appln EXT BID JOSE Stop: 04/26/24 20:59 Last Admin: 04/14/24 09:04 Dose: 1 appln Documented By: Admin: 04/13/24 20:37 Dose: 1 appln Documented By: Admin: 04/13/24 08:53 Dose: 1 appln Documented By: Admin: 04/12/24 20:34 Dose: 1 appln Documented By: Admin: 04/12/24 08:11 Dose: 1 appln Documented By: Admin: 04/11/24 20:51 Dose: 1 appln Documented By: Admin: 04/11/24 08:03 Dose: 1 appln Documented By: Admin: 04/10/24 20:31 Dose: 1 appln Documented By: Admin: 04/10/24 08:53 Dose: 1 appln Documented By: Admin: 04/09/24 20:51 Dose: 1 appln Documented By: Admin: 04/09/24 11:09 Dose: 1 appln Documented By: Admin: 04/08/24 20:27 Dose: 1 appln Documented By: Admin: 04/08/24 09:17 Dose: 1 appln Documented By: Admin: 04/07/24 21:35 Dose: 1 appln Documented By: Admin: 04/07/24 08:14 Dose: 1 appln Documented By: Admin: 04/06/24 20:29 Dose: 1 appln Documented By: Admin: 04/06/24 08:29 Dose: 1 appln Documented By: Admin: 04/05/24 20:40 Dose: 1 appln Documented By: Admin: 04/05/24 09:05 Dose: 1 appln Documented By: Admin: 04/04/24 20:09 Dose: 1 appln Documented By: Admin: 04/04/24 08:12 Dose: 1 appln Documented By: Admin: 04/03/24 21:33 Dose: 1 appln Documented By: Admin: 04/03/24 07:33 Dose: 1 appln Documented By: Admin: 04/02/24 21:00 Dose: 1 appln Documented By: Admin: 04/02/24 09:33 Dose: 1 appln Documented By: Admin: 04/01/24 20:28 Dose: 1 appln Documented By: Admin: 04/01/24 09:29 Dose: 1 appln Documented By: Admin: 03/31/24 21:17 Dose: 1 appln Documented By: Admin: 03/31/24 07:48 Dose: 1 appln Documented By: Admin: 03/30/24 20:35 Dose: 1 appln Documented By: Admin: 03/30/24 08:29 Dose: 1 appln Documented By: Admin: 03/29/24 20:20 Dose: 1 appln Documented By: Admin: 03/29/24 09:56 Dose: 1 appln Documented By: Admin: 03/28/24 21:39 Dose: 1 appln Documented By: Admin: 03/28/24 08:15 Dose: 1 appln Documented By: Admin: 03/27/24 21:14 Dose: 1 appln Documented By: MMG Petrolatum (Butt Paste (Zinc Oxide 16%) 171 Appln/57 Gm Jar) 1 appln EXT BID JOSE Stop: 04/26/24 20:59 Last Admin: 04/14/24 09:04 Dose: 1 appln Documented By: Admin: 04/13/24 20:37 Dose: 1 appln Documented By: Admin: 04/13/24 08:52 Dose: Not Given Documented By: Admin: 04/12/24 20:35 Dose: 1 appln Documented By: Admin: 04/12/24 08:10 Dose: Not Given Documented By: Admin: 04/11/24 20:51 Dose: 1 appln Documented By: Admin: 04/11/24 08:03 Dose: 1 appln Documented By: LMUmesh Admin: 04/10/24 20:31 Dose: 1 appln Documented By: Admin: 04/10/24 08:52 Dose: 1 appln Documented By: Admin: 04/09/24 20:51 Dose: 1 appln Documented By: Admin: 04/09/24 11:09 Dose: 1 appln Documented By: Admin: 04/08/24 20:27 Dose: 1 appln Documented By: Admin: 04/08/24 09:17 Dose: Not Given Documented By: Admin: 04/07/24 21:35 Dose: Not Given Documented By: Admin: 04/07/24 08:14 Dose: Not Given Documented By: Admin: 04/06/24 20:29 Dose: Not Given Documented By: Admin: 04/06/24 08:29 Dose: Not Given Documented By: Admin: 04/05/24 20:40 Dose: Not Given Documented By: Admin: 04/05/24 09:05 Dose: 1 appln Documented By: Admin: 04/04/24 20:09 Dose: 1 appln Documented By: Admin: 04/04/24 08:12 Dose: 1 appln Documented By: Admin: 04/03/24 21:32 Dose: Not Given Documented By: Admin: 04/03/24 07:33 Dose: 1 appln Documented By: Admin: 04/02/24 21:00 Dose: Not Given Documented By: Admin: 04/02/24 09:32 Dose: 1 appln Documented By: Admin: 04/01/24 20:28 Dose: 1 appln Documented By: Admin: 04/01/24 09:30 Dose: 1 appln Documented By: Admin: 03/31/24 21:17 Dose: 1 appln Documented By: Admin: 03/31/24 07:48 Dose: 1 appln Documented By: Admin: 03/30/24 20:35 Dose: 1 appln Documented By: Admin: 03/30/24 08:29 Dose: 1 appln Documented By: Admin: 03/29/24 20:20 Dose: 1 appln Documented By: Admin: 03/29/24 09:56 Dose: 1 appln Documented By: Admin: 03/28/24 21:39 Dose: 1 appln Documented By: Admin: 03/28/24 08:15 Dose: 1 appln Documented By: Admin: 03/27/24 21:13 Dose: 1 appln Documented By: MMG Polyethylene Glycol (Polyethylene (Miralax) 17 Gm Pack) 17 gm PO HS JOSE Stop: 05/08/24 20:59 Last Admin: 04/13/24 20:29 Dose: Not Given Documented By: Admin: 04/12/24 20:35 Dose: Not Given Documented By: Admin: 04/11/24 20:50 Dose: Not Given Documented By: Admin: 04/10/24 20:31 Dose: Not Given Documented By: Admin: 04/09/24 20:51 Dose: Not Given Documented By: Admin: 04/08/24 20:27 Dose: Not Given Documented By: JANES Polyethylene Glycol (Polyethylene (Miralax) 17 Gm Pack) 17 gm PO DAILY JOSE Stop: 05/12/24 08:59 Last Admin: 04/14/24 09:00 Dose: Not Given Documented By: Admin: 04/13/24 08:52 Dose: Not Given Documented By: Admin: 04/12/24 08:10 Dose: Not Given Documented By: ROYA Senna/Docusate Sodium (Docusate Sodium/Senna 50/8.6mg Tab) 1 tab PO BID JOSE Stop: 05/08/24 20:59 Last Admin: 04/14/24 08:58 Dose: Not Given Documented By: Admin: 04/13/24 20:33 Dose: 1 tab Documented By: Admin: 04/13/24 08:53 Dose: 1 tab Documented By: Admin: 04/12/24 20:34 Dose: 1 tab Documented By: Admin: 04/12/24 08:06 Dose: 1 tab Documented By: Admin: 04/11/24 20:46 Dose: 1 tab Documented By: Admin: 04/11/24 08:02 Dose: 1 tab Documented By: Admin: 04/10/24 20:31 Dose: 1 tab Documented By: Admin: 04/10/24 08:52 Dose: 1 tab Documented By: Admin: 04/09/24 20:51 Dose: 1 tab Documented By: Admin: 04/09/24 08:33 Dose: 1 tab Documented By: Admin: 04/08/24 20:26 Dose: 1 tab Documented By: JANES Sodium Chloride (Sodium Chloride 0.65% Na Soln 45 Ml ([place])) 2 sprays NA TID PRN PRN Reason: Nasal Congestion Stop: 04/27/24 22:01 Last Admin: 03/28/24 22:58 Dose: 2 sprays Documented By: HUMBERTO Discontinued Medications Acetaminophen (Acetaminophen 325 Mg Tab) 650 mg PO Q4H PRN PRN Reason: Pain or Fever Stop: 04/14/24 20:33 Last Admin: 04/05/24 07:19 Dose: 650 mg Documented By: Admin: 04/05/24 03:16 Dose: 650 mg Documented By: Admin: 04/04/24 22:51 Dose: 650 mg Documented By: Admin: 04/04/24 02:28 Dose: 650 mg Documented By: Admin: 04/03/24 21:34 Dose: 650 mg Documented By: Admin: 04/02/24 22:29 Dose: 650 mg Documented By: Admin: 04/02/24 00:56 Dose: 650 mg Documented By: Admin: 03/27/24 12:23 Dose: 650 mg Documented By: Admin: 03/24/24 23:12 Dose: 650 mg Documented By: Admin: 03/20/24 10:27 Dose: 650 mg Documented By: Admin: 03/17/24 17:42 Dose: 650 mg Documented By: Admin: 03/16/24 23:21 Dose: 650 mg Documented By: LEODAN Acetaminophen (Acetaminophen 325 Mg Tab) 650 mg PO NOW STA Stop: 03/26/24 20:49 Last Admin: 03/26/24 21:41 Dose: 650 mg Documented By: NAVJOT Albuterol (Albut/Ipratrop 3mg/0.5mg Neb 3 Ml Vial) Confirm Administered Dose 3 ml .ROUTE .STK-MED ONE Stop: 03/17/24 09:17 Last Admin: 03/17/24 09:23 Dose: 3 ml Documented By: LMM(2) Albuterol (Albuterol 0.083% Nebu Soln 3 Ml Vial) 2.5 mg NEB QIDR JOSE; Protocol Stop: 05/08/24 09:54 Last Admin: 04/13/24 15:06 Dose: 2.5 mg Documented By: Admin: 04/13/24 10:50 Dose: 2.5 mg Documented By: Admin: 04/13/24 07:04 Dose: 2.5 mg Documented By: Admin: 04/12/24 20:01 Dose: 2.5 mg Documented By: Admin: 04/12/24 15:29 Dose: 2.5 mg Documented By: Admin: 04/12/24 11:09 Dose: 2.5 mg Documented By: Admin: 04/12/24 07:12 Dose: 2.5 mg Documented By: Admin: 04/11/24 20:09 Dose: 2.5 mg Documented By: Admin: 04/11/24 15:18 Dose: 2.5 mg Documented By: [id number] Admin: 04/11/24 10:48 Dose: 2.5 mg Documented By: [id number] Admin: 04/11/24 07:24 Dose: 2.5 mg Documented By: [id number] Admin: 04/10/24 19:57 Dose: 2.5 mg Documented By: ARPIT(2) Admin: 04/10/24 14:42 Dose: 2.5 mg Documented By: [facility] Admin: 04/10/24 11:03 Dose: 2.5 mg Documented By: [id number] Admin: 04/10/24 07:08 Dose: 2.5 mg Documented By: Admin: 04/09/24 20:08 Dose: 2.5 mg Documented By: Admin: 04/09/24 14:41 Dose: 2.5 mg Documented By: [id number] Admin: 04/09/24 11:23 Dose: 2.5 mg Documented By: [facility] Admin: 04/09/24 06:59 Dose: 2.5 mg Documented By: Admin: 04/08/24 19:49 Dose: 2.5 mg Documented By: Admin: 04/08/24 15:04 Dose: 2.5 mg Documented By: [id number] Admin: 04/08/24 10:42 Dose: Not Given Documented By: [id number] Admin: 04/08/24 10:35 Dose: 2.5 mg Documented By: [id number] Amlodipine Besylate (Amlodipine Besylate 5 Mg Tab) 2.5 mg PO QAM JOSE Stop: 04/15/24 08:59 Last Admin: 03/21/24 09:04 Dose: 2.5 mg Documented By: Admin: 03/20/24 10:27 Dose: 2.5 mg Documented By: Admin: 03/19/24 09:39 Dose: 2.5 mg Documented By: Admin: 03/18/24 07:24 Dose: 2.5 mg Documented By: Admin: 03/17/24 13:19 Dose: Not Given Documented By: Admin: 03/16/24 08:03 Dose: 2.5 mg Documented By: OAC Amlodipine Besylate (Amlodipine Besylate 5 Mg Tab) 5 mg PO NOW ONE Stop: 03/21/24 14:46 Last Admin: 03/21/24 15:58 Dose: 5 mg Documented By: DTT Amoxicillin/Clavulanate Potassium (Amoxicillin/Clavulanate 875 Mg Tab) 1 tab PO BIDM [facility]; Protocol Stop: 03/23/24 07:59 Last Admin: 03/16/24 08:03 Dose: 1 tab Documented By: OAC Atorvastatin Calcium (Atorvastatin 40 Mg Tab) 40 mg PO NOW STA Stop: 03/16/24 23:07 Last Admin: 03/16/24 23:21 Dose: 40 mg Documented By: LEODAN Bisacodyl (Bisacodyl 5 Mg Tabec) 5 mg PO NOW ONE Stop: 04/12/24 14:15 Last Admin: 04/12/24 15:16 Dose: 5 mg Documented By: ROYA Bisacodyl (Bisacodyl 5 Mg Tabec) 5 mg PO NOW ONE Stop: 04/13/24 08:32 Last Admin: 04/13/24 08:52 Dose: 5 mg Documented By: SHAUNA Bisacodyl (Bisacodyl 10 Mg Supp) 10 mg MD NOW STA Stop: 04/13/24 11:29 Last Admin: 04/13/24 12:58 Dose: 10 mg Documented By: SHAUNA Bumetanide (Bumetanide 1 Mg Tab) 3 mg PO DAILY [facility] Stop: 04/15/24 08:59 Last Admin: 03/16/24 08:03 Dose: 3 mg Documented By: OAC Dexamethasone (Dexamethasone 4 Mg Tab) 8 mg PO DAILY@1400 [facility] Stop: 03/20/24 14:01 Last Admin: 03/20/24 13:45 Dose: 8 mg Documented By: Admin: 03/19/24 13:44 Dose: 8 mg Documented By: DTT Dexamethasone (Dexamethasone 4 Mg Tab) 8 mg PO DAILY@1145 [facility] Stop: 04/09/24 11:46 Last Admin: 04/09/24 11:48 Dose: 8 mg Documented By: Admin: 04/08/24 11:22 Dose: 8 mg Documented By: CMV Diphenhydramine HCl (Diphenhydramine Capsule 25 Mg Cap) 25 mg PO NOW ONE Stop: 04/03/24 02:41 Last Admin: 04/03/24 03:44 Dose: Not Given Documented By: EUGENIA Diphenhydramine HCl (Diphenhydramine Capsule 25 Mg Cap) 25 mg PO ONE ONE Stop: 04/11/24 21:01 Last Admin: 04/11/24 22:30 Dose: 25 mg Documented By: ARPIT Docusate Sodium (Docusate Sodium 100 Mg Cap) 100 mg PO BID JOSE Stop: 04/28/24 20:59 Last Admin: 04/08/24 09:12 Dose: 100 mg Documented By: Admin: 04/07/24 21:34 Dose: 100 mg Documented By: Admin: 04/07/24 08:11 Dose: 100 mg Documented By: Admin: 04/06/24 20:26 Dose: 100 mg Documented By: Admin: 04/06/24 08:29 Dose: 100 mg Documented By: Admin: 04/05/24 20:38 Dose: 100 mg Documented By: Admin: 04/05/24 09:04 Dose: 100 mg Documented By: Admin: 04/04/24 20:07 Dose: 100 mg Documented By: Admin: 04/04/24 08:09 Dose: 100 mg Documented By: Admin: 04/03/24 21:29 Dose: 100 mg Documented By: Admin: 04/03/24 07:29 Dose: 100 mg Documented By: Admin: 04/02/24 20:57 Dose: 100 mg Documented By: Admin: 04/02/24 09:18 Dose: 100 mg Documented By: Admin: 04/01/24 20:24 Dose: 100 mg Documented By: Admin: 04/01/24 09:14 Dose: 100 mg Documented By: Admin: 03/31/24 21:16 Dose: 100 mg Documented By: Admin: 03/31/24 07:48 Dose: 100 mg Documented By: Admin: 03/30/24 20:35 Dose: 100 mg Documented By: Admin: 03/30/24 08:25 Dose: 100 mg Documented By: Admin: 03/29/24 20:19 Dose: 100 mg Documented By: HUMBERTO Fentanyl Citrate (Fentanyl Citrate Pf 100 Mcg/2 Ml Vial) Confirm Administered Dose 100 mcg .ROUTE .STK-MED ONE Stop: 03/17/24 07:47 Last Admin: 03/17/24 09:25 Dose: Not Given Documented By: ROBERTO Fentanyl Citrate (Fentanyl Citrate Pf 100 Mcg/2 Ml Vial) Confirm Administered Dose 100 mcg .ROUTE .STK-MED ONE Stop: 03/17/24 08:14 Last Admin: 03/17/24 09:25 Dose: 100 mcg Documented By: ROBERTO Ferrous Sulfate (Ferrous Sulfate 325 Mg/7.4 Ml Udp) 325 mg PO QAM [facility] Stop: 04/21/24 08:59 Last Admin: 03/24/24 08:30 Dose: 325 mg Documented By: Admin: 03/23/24 08:11 Dose: 325 mg Documented By: Admin: 03/22/24 08:00 Dose: 325 mg Documented By: ANJALI Filgrastim (Filgrastim 300 Mcg/Ml Vial) 300 mcg SC DAILY@1600 [facility] Stop: 03/22/24 16:01 Last Admin: 03/22/24 17:13 Dose: 300 mcg Documented By: Admin: 03/21/24 17:08 Dose: 300 mcg Documented By: ANJALI Filgrastim (Filgrastim 480 Mcg/1.6 Ml Vial) 480 mcg SC ONE ONE Stop: 03/30/24 13:31 Last Admin: 03/30/24 15:24 Dose: 480 mcg Documented By: RANCHO Filgrastim (Filgrastim 480 Mcg/1.6 Ml Vial) 480 mcg SC Th@0915 ONE Stop: 03/31/24 09:16 Last Admin: 03/31/24 07:47 Dose: 480 mcg Documented By: GRISELDA Filgrastim (Filgrastim 480 Mcg/1.6 Ml Vial) 480 mcg SQ DAILY@1500 [facility] Stop: 04/11/24 15:01 Last Admin: 04/10/24 15:23 Dose: 480 mcg Documented By: ENDY Fluticasone Propionate (Fluticasone Propionate Na Spr 16 Gm Btl) 1 sprays NA DAILY [facility] Stop: 05/03/24 08:59 Last Admin: 04/04/24 08:13 Dose: Not Given Documented By: Admin: 04/03/24 07:32 Dose: 1 sprays Documented By: ADÁN Fluticasone Propionate (Fluticasone Propionate Na Spr 16 Gm Btl) 1 sprays NA NOW STA Stop: 04/03/24 02:41 Last Admin: 04/03/24 03:16 Dose: 1 sprays Documented By: EUGENIA Furosemide (Furosemide 40 Mg/4 Ml Vial) 40 mg IV ONE ONE Stop: 04/01/24 08:05 Last Admin: 04/01/24 09:44 Dose: 40 mg Documented By: ADÁN Furosemide (Furosemide Inj 20 Mg/2 Ml Vial) 10 mg IV ONE ONE Stop: 04/06/24 12:35 Last Admin: 04/06/24 13:53 Dose: 10 mg Documented By: ARLETH Furosemide (Furosemide Inj 20 Mg/2 Ml Vial) 20 mg IV ONE ONE Stop: 04/06/24 15:59 Last Admin: 04/06/24 17:47 Dose: 20 mg Documented By: ARLETH Furosemide (Furosemide Inj 20 Mg/2 Ml Vial) 20 mg IV ONE ONE Stop: 04/11/24 16:09 Last Admin: 04/11/24 17:21 Dose: 20 mg Documented By: TARA Gabapentin (Gabapentin 300 Mg Cap) 300 mg PO BID JOSE Stop: 04/14/24 20:59 Last Admin: 04/08/24 09:11 Dose: 300 mg Documented By: Admin: 04/07/24 21:34 Dose: 300 mg Documented By: Admin: 04/07/24 08:11 Dose: 300 mg Documented By: Admin: 04/06/24 20:25 Dose: 300 mg Documented By: Admin: 04/06/24 08:29 Dose: 300 mg Documented By: Admin: 04/05/24 20:39 Dose: 300 mg Documented By: Admin: 04/05/24 09:04 Dose: 300 mg Documented By: Admin: 04/04/24 20:07 Dose: 300 mg Documented By: Admin: 04/04/24 08:09 Dose: 300 mg Documented By: Admin: 04/03/24 21:31 Dose: 300 mg Documented By: Admin: 04/03/24 07:29 Dose: 300 mg Documented By: Admin: 04/02/24 20:58 Dose: 300 mg Documented By: Admin: 04/02/24 09:19 Dose: 300 mg Documented By: Admin: 04/01/24 20:28 Dose: 300 mg Documented By: Admin: 04/01/24 09:19 Dose: 300 mg Documented By: Admin: 03/31/24 21:14 Dose: 300 mg Documented By: Admin: 03/31/24 07:47 Dose: 300 mg Documented By: Admin: 03/30/24 20:35 Dose: 300 mg Documented By: Admin: 03/30/24 08:25 Dose: 300 mg Documented By: Admin: 03/29/24 20:20 Dose: 300 mg Documented By: Admin: 03/29/24 08:27 Dose: 300 mg Documented By: Admin: 03/28/24 21:38 Dose: 300 mg Documented By: Admin: 03/28/24 08:13 Dose: 300 mg Documented By: Admin: 03/27/24 21:13 Dose: 300 mg Documented By: Admin: 03/27/24 08:00 Dose: 300 mg Documented By: Admin: 03/26/24 20:09 Dose: 300 mg Documented By: Admin: 03/26/24 08:18 Dose: 300 mg Documented By: Admin: 03/25/24 20:43 Dose: 300 mg Documented By: CRH(2) Admin: 03/25/24 09:19 Dose: 300 mg Documented By: Admin: 03/24/24 20:25 Dose: 300 mg Documented By: Admin: 03/24/24 08:29 Dose: 300 mg Documented By: Admin: 03/23/24 20:08 Dose: 300 mg Documented By: Admin: 03/23/24 08:10 Dose: 300 mg Documented By: Admin: 03/22/24 21:00 Dose: 300 mg Documented By: Admin: 03/22/24 08:00 Dose: 300 mg Documented By: Admin: 03/21/24 21:35 Dose: 300 mg Documented By: JTM(2) Admin: 03/21/24 09:04 Dose: 300 mg Documented By: Admin: 03/20/24 21:18 Dose: 300 mg Documented By: Admin: 03/20/24 10:27 Dose: 300 mg Documented By: Admin: 03/19/24 20:55 Dose: 300 mg Documented By: Admin: 03/19/24 09:39 Dose: 300 mg Documented By: Admin: 03/18/24 20:11 Dose: 300 mg Documented By: SHAUNA(2) Admin: 03/18/24 07:23 Dose: 300 mg Documented By: Admin: 03/17/24 21:35 Dose: 300 mg Documented By: Admin: 03/17/24 13:19 Dose: Not Given Documented By: Admin: 03/16/24 23:05 Dose: 300 mg Documented By: AKCassia Admin: 03/16/24 08:03 Dose: 300 mg Documented By: Admin: 03/15/24 21:56 Dose: 300 mg Documented By: KAYE Hydromorphone HCl (Hydromorphone Inj 0.5 Mg/0.5 Ml Syr) 0.25 mg IV Q6H PRN PRN Reason: Severe Pain (Scale 7, 8, 9,10) Stop: 03/31/24 14:45 Last Admin: 03/22/24 19:43 Dose: 0.25 mg Documented By: Admin: 03/22/24 13:17 Dose: 0.5 mg Documented By: Admin: 03/21/24 17:11 Dose: 0.25 mg Documented By: Admin: 03/21/24 09:04 Dose: 0.25 mg Documented By: Admin: 03/18/24 07:45 Dose: 0.25 mg Documented By: RANJIT Hydromorphone HCl (Hydromorphone Inj 0.5 Mg/0.5 Ml Syr) 0.25 mg IV Q3H PRN PRN Reason: Pain, dyspnea Stop: 04/01/24 11:50 Last Admin: 04/01/24 04:56 Dose: 0.25 mg Documented By: Admin: 03/31/24 19:49 Dose: 0.25 mg Documented By: Admin: 03/31/24 13:46 Dose: 0.25 mg Documented By: Admin: 03/31/24 07:29 Dose: 0.25 mg Documented By: Admin: 03/31/24 03:55 Dose: 0.25 mg Documented By: Admin: 03/30/24 22:35 Dose: 0.25 mg Documented By: Admin: 03/25/24 21:58 Dose: 0.25 mg Documented By: EUGENIA(2) Admin: 03/21/24 21:31 Dose: 0.25 mg Documented By: PRASAD(2) Admin: 03/21/24 03:09 Dose: 0.25 mg Documented By: Admin: 03/20/24 21:27 Dose: 0.25 mg Documented By: Admin: 03/20/24 06:01 Dose: 0.25 mg Documented By: NAV Hydromorphone HCl (Hydromorphone Inj 0.5 Mg/0.5 Ml Syr) 0.25 mg IV NOW STA Stop: 03/31/24 15:49 Last Admin: 03/31/24 16:09 Dose: 0.25 mg Documented By: GRISELDA Hydromorphone HCl (Hydromorphone Inj 0.5 Mg/0.5 Ml Syr) 0.5 mg IV NOW STA Stop: 03/31/24 21:29 Last Admin: 03/31/24 21:56 Dose: 0.5 mg Documented By: TEETEE Hydromorphone HCl (Hydromorphone Inj 0.5 Mg/0.5 Ml Syr) 0.5 mg IV NOW STA Stop: 04/02/24 22:54 Last Admin: 04/02/24 23:02 Dose: Not Given Documented By: EUGENIA Sodium Chloride (Nss) 1,000 mls @ 75 mls/hr IV .[id number] JOSE Stop: 04/14/24 20:33 Last Infusion: 03/17/24 00:30 Dose: Infused Documented By: Admin: 03/16/24 11:10 Dose: 75 mls/hr Documented By: Infusion: 03/16/24 11:10 Dose: Infused Documented By: Admin: 03/15/24 21:58 Dose: 75 mls/hr Documented By: KAYE Potassium Chloride (K Floyd / Wtr) 10 meq in 100 mls @ 100 mls/hr IV Q1H JOSE Stop: 03/16/24 01:29 Last Infusion: 03/16/24 04:00 Dose: Infused Documented By: AURORA(2) Admin: 03/16/24 02:39 Dose: 100 mls/hr Documented By: KMS(2) Infusion: 03/16/24 02:39 Dose: Infused Documented By: KMS(2) Admin: 03/16/24 01:00 Dose: 100 mls/hr Documented By: AURORA(2) Infusion: 03/16/24 00:59 Dose: Infused Documented By: AURORA(2) Admin: 03/15/24 23:39 Dose: 100 mls/hr Documented By: AURORA(2) Infusion: 03/15/24 23:19 Dose: Infused Documented By: NAVJOT(2) Admin: 03/15/24 21:58 Dose: 100 mls/hr Documented By: KAYE Potassium Chloride (K Floyd / Wtr) 10 meq in 100 mls @ 100 mls/hr IV Q1H JOSE Stop: 03/16/24 21:29 Last Infusion: 03/16/24 22:54 Dose: Infused Documented By: Admin: 03/16/24 21:54 Dose: 100 mls/hr Documented By: Infusion: 03/16/24 21:42 Dose: Infused Documented By: Admin: 03/16/24 20:42 Dose: 100 mls/hr Documented By: LEODAN Promethazine HCl 12.5 mg/ (Sodium Chloride) 50.5 mls @ 202 mls/hr IV NOW STA Stop: 03/16/24 21:13 Last Infusion: 03/16/24 21:31 Dose: Infused Documented By: Admin: 03/16/24 21:16 Dose: 202 mls/hr Documented By: LEODAN Sodium Chloride (Nss) 1,000 mls @ 75 mls/hr IV .[id number] JOSE Stop: 03/17/24 12:34 Last Infusion: 03/17/24 12:42 Dose: Infused Documented By: Admin: 03/16/24 23:22 Dose: 75 mls/hr Documented By: LEODAN Lorazepam 0.5 mg/ Syringe 0.5 mls @ 2 mls/min IV NOW STA Stop: 03/17/24 09:16 Last Admin: 03/17/24 09:23 Dose: Not Given Documented By: ROBERTO Palonosetron 0.25 mg/ Syringe 5 mls @ 10 mls/min IV DAILY JOSE Stop: 03/19/24 09:01 Last Admin: 03/19/24 09:39 Dose: 10 mls/min Documented By: ANJALI Palonosetron 0.25 mg/ Syringe 5 mls @ 10 mls/min IV DAILY JOSE Stop: 04/20/24 08:59 Last Admin: 03/28/24 09:08 Dose: 10 mls/min Documented By: Admin: 03/27/24 09:22 Dose: 10 mls/min Documented By: Admin: 03/26/24 08:24 Dose: 10 mls/min Documented By: Admin: 03/25/24 11:30 Dose: 10 mls/min Documented By: Admin: 03/24/24 08:37 Dose: 10 mls/min Documented By: Admin: 03/23/24 08:17 Dose: 10 mls/min Documented By: Admin: 03/22/24 08:07 Dose: 10 mls/min Documented By: Admin: 03/21/24 10:03 Dose: 10 mls/min Documented By: DTT Promethazine HCl 6.25 mg/ (Sodium Chloride) 50.25 mls @ 201 mls/hr IV Q6H PRN PRN Reason: Nausea And Vomiting Stop: 04/17/24 13:51 Last Infusion: 03/20/24 07:27 Dose: Infused Documented By: Admin: 03/20/24 07:09 Dose: 201 mls/hr Documented By: Infusion: 03/19/24 17:19 Dose: Infused Documented By: Admin: 03/19/24 16:14 Dose: 201 mls/hr Documented By: DTT Carboplatin 350 mg/ Sodium (Chloride) 285 mls @ 570 mls/hr IV TODAY@1500 JOSE; Protocol Stop: 03/18/24 15:29 Last Infusion: 03/18/24 15:56 Dose: Infused Documented By: MARY Co-signed By: RANJIT Admin: 03/18/24 15:09 Dose: 570 mls/hr Documented By: MARY Co-signed By: GREG Etoposide 140 mg/ Sodium (Chloride) 507 mls @ 507 mls/hr IV TODAY@1530 JOSE; Protocol Stop: 03/18/24 16:29 Last Infusion: 03/18/24 17:26 Dose: Infused Documented By: ELMER Co-signed By: GELA Admin: 03/18/24 15:58 Dose: 507 mls/hr Documented By: MARY Co-signed By: RANJIT Etoposide 140 mg/ Sodium (Chloride) 507 mls @ 507 mls/hr IV DAILY@1430 JOSE; Protocol Stop: 03/20/24 15:29 Last Infusion: 03/20/24 15:34 Dose: Infused Documented By: JONATHAN Co-signed By: ROSALVA Admin: 03/20/24 14:30 Dose: 507 mls/hr Documented By: ROSALVA Co-signed By: JONATHAN Infusion: 03/19/24 15:30 Dose: Infused Documented By: ROSALVA Co-signed By: JONATHAN Admin: 03/19/24 14:19 Dose: 507 mls/hr Documented By: ROSALVA Co-signed By: JONATHAN Palonosetron 0.25 mg/ Syringe 5 mls @ 10 mls/min IV TODAY@1400 JOSE Stop: 03/20/24 14:01 Last Admin: 03/20/24 13:45 Dose: 10 mls/min Documented By: ANJALI Sodium Chloride (1/2 Nss) 1,000 mls @ 60 mls/hr IV .[id number] ONE Stop: 03/27/24 13:29 Last Infusion: 03/27/24 15:29 Dose: Infused Documented By: Admin: 03/26/24 21:42 Dose: 60 mls/hr Documented By: NAVJOT Magnesium Sulfate/Dextrose (Magnesium Sulfate / D5w) 1 gm in 100 mls @ 50 mls/hr IV ONE ONE Stop: 03/29/24 08:36 Last Infusion: 03/29/24 10:46 Dose: Infused Documented By: Admin: 03/29/24 08:46 Dose: 50 mls/hr Documented By: ROYA Albumin Human (Albumin 25%) 12.5 gm in 50 mls @ 50 mls/hr IV ONE ONE Stop: 03/29/24 07:36 Last Infusion: 03/29/24 07:49 Dose: Infused Documented By: Admin: 03/29/24 06:49 Dose: 50 mls/hr Documented By: HUMBERTO Dexamethasone 12 mg/Palonosetron 0.25 mg/ Sodium Chloride 58 mls @ 232 mls/hr IV TODAY@1000 ONE Stop: 04/07/24 10:14 Last Infusion: 04/07/24 11:28 Dose: Infused Documented By: Admin: 04/07/24 10:46 Dose: 232 mls/hr Documented By: AAH Fosaprepitant 150 mg/ Sodium (Chloride) 150 mls @ 450 mls/hr IV TODAY@1015 ONE Stop: 04/07/24 10:34 Last Infusion: 04/07/24 14:56 Dose: Infused Documented By: Admin: 04/07/24 12:21 Dose: 450 mls/hr Documented By: MARY Carboplatin 350 mg/ Sodium (Chloride) 285 mls @ 570 mls/hr IV TODAY@1135 JOSE; Protocol Stop: 04/07/24 12:04 Last Infusion: 04/07/24 14:56 Dose: Infused Documented By: MARY Co-signed By: SHAR Admin: 04/07/24 13:45 Dose: 570 mls/hr Documented By: MARY Co-signed By: ERB Etoposide 140 mg/ Sodium (Chloride) 507 mls @ 507 mls/hr IV TODAY@1215 JOSE; Protocol Stop: 04/09/24 13:14 Last Infusion: 04/09/24 13:53 Dose: Infused Documented By: ROSALVA Co-signed By: GELA Admin: 04/09/24 12:28 Dose: 500 mls/hr Documented By: ROSALVA Co-signed By: GELA Infusion: 04/08/24 13:19 Dose: Infused Documented By: GREG Co-signed By: SHAR Admin: 04/08/24 11:57 Dose: 500 mls/hr Documented By: ANDRE Co-signed By: GREG Infusion: 04/07/24 16:06 Dose: Infused Documented By: MARY Co-signed By: SHAR Infusion: 04/07/24 14:56 Dose: 500 mls/hr Documented By: MARY Co-signed By: SHAR Admin: 04/07/24 14:51 Dose: 507 mls/hr Documented By: MARY Co-signed By: SHAR Palonosetron 0.25 mg/ Syringe 5 mls @ 10 mls/min IV TODAY@1145 JOSE Stop: 04/09/24 11:46 Last Admin: 04/09/24 11:48 Dose: 10 mls/min Documented By: ENDY Vancomycin HCl 1,250 mg/ (Sodium Chloride) 275 mls @ 200 mls/hr IV NOW ONE Stop: 04/11/24 11:52 Last Infusion: 04/11/24 12:38 Dose: Infused Documented By: Admin: 04/11/24 11:15 Dose: 200 mls/hr Documented By: LMM Ioversol (Optiray 320 125ml) 118 ml IV ONCE ONE Stop: 03/15/24 15:54 Last Admin: 03/15/24 15:53 Dose: 118 ml Documented By: KSF Ioversol (Optiray 320 100ml) 89 ml IV ONCE ONE Stop: 03/16/24 15:44 Last Admin: 03/16/24 15:43 Dose: 89 ml Documented By: KSF Ioversol (Optiray 320 125ml) 116 ml IV ONCE ONE Stop: 03/16/24 22:17 Last Admin: 03/16/24 22:16 Dose: 116 ml Documented By: MONI Ketorolac Tromethamine (Ketorolac Tromethamine 15 Mg/Ml Vial) 10 mg IV NOW ONE Stop: 03/26/24 22:39 Last Admin: 03/27/24 01:38 Dose: Not Given Documented By: NAVJOT Ketorolac Tromethamine (Ketorolac Tromethamine 15 Mg/Ml Vial) 15 mg IV NOW ONE Stop: 04/01/24 20:37 Last Admin: 04/01/24 20:55 Dose: 15 mg Documented By: TEETEE Levofloxacin (Levofloxacin 750 Mg Tab) 750 mg PO Q2D@1100 JOSE; Protocol Stop: 03/22/24 21:59 Last Admin: 03/15/24 22:14 Dose: 750 mg Documented By: KAYE Loratadine (Loratadine 10 Mg Tab) 10 mg PO NOW ONE Stop: 03/26/24 20:36 Last Admin: 03/26/24 21:42 Dose: 10 mg Documented By: NAVJOT Loratadine (Loratadine 10 Mg Tab) 10 mg PO HS [facility] Stop: 04/27/24 22:04 Last Admin: 03/28/24 22:58 Dose: 10 mg Documented By: HUMBERTO Lorazepam (Lorazepam 1 Mg/1 Ml Syr Ed Inj Use) 0.5 mg IV ONE STA Stop: 03/15/24 18:12 Last Admin: 03/15/24 18:15 Dose: 0.5 mg Documented By: KAYE Lorazepam (Lorazepam 1 Mg/1 Ml Syr Ed Inj Use) Confirm Administered Dose 1 mg .ROUTE .STK-MED ONE Stop: 03/17/24 09:20 Last Admin: 03/17/24 09:23 Dose: 1 mg Documented By: ROBERTO Melatonin (Melatonin 3 Mg Tab) 3 mg PO [facility] Stop: 05/03/24 20:59 Last Admin: 04/07/24 21:35 Dose: Not Given Documented By: Admin: 04/06/24 21:54 Dose: Not Given Documented By: Admin: 04/05/24 20:38 Dose: 3 mg Documented By: Admin: 04/04/24 21:59 Dose: Not Given Documented By: Admin: 04/03/24 21:40 Dose: 3 mg Documented By: EUGENIA Midazolam HCl (Midazolam Hcl 5 Mg/Ml 1 Ml Vial) Confirm Administered Dose 5 mg .ROUTE .STK-MED ONE Stop: 03/17/24 07:47 Last Increment: 03/17/24 09:25 Dose: 4 mg Documented By: ROBERTO Olanzapine (Olanzapine Zydis 10 Mg [place] Dis. Tab) [facility] [place]: 04/19/24 11:44 Last Admin: 03/21/24 09:04 Dose: 10 mg Documented By: Admin: 03/20/24 11:59 Dose: 10 mg Documented By: ANJALI Olanzapine (Olanzapine Zydis 5 Mg Orally Dis. Tab) 2.5 mg PO [facility] Stop: 03/24/24 21:01 Last Admin: 03/24/24 20:25 Dose: 2.5 mg Documented By: MMChika Admin: 03/23/24 20:10 Dose: 2.5 mg Documented By: Admin: 03/22/24 21:03 Dose: 2.5 mg Documented By: Admin: 03/21/24 21:36 Dose: 2.5 mg Documented By: PRASAD(2) Ondansetron HCl (Ondansetron Inj 2 Mg/Ml 2 Ml Vial) 4 mg IV Q6H PRN PRN Reason: Nausea Stop: 04/14/24 20:33 Last Admin: 03/18/24 08:58 Dose: 4 mg Documented By: Admin: 03/18/24 07:23 Dose: 4 mg Documented By: Admin: 03/17/24 19:34 Dose: 4 mg Documented By: Admin: 03/16/24 17:46 Dose: 4 mg Documented By: ЮЛИЯ Admin: 03/15/24 22:54 Dose: 4 mg Documented By: NAVJOT(2) Oxycodone HCl (Oxycodone Hcl Ir 5 Mg Tab (Immediate Release)) 5 mg PO Q4 PRN PRN Reason: Pain Stop: 03/29/24 20:33 Last Admin: 03/27/24 21:14 Dose: 5 mg Documented By: Admin: 03/24/24 00:42 Dose: 5 mg Documented By: Admin: 03/23/24 20:06 Dose: 5 mg Documented By: Admin: 03/16/24 15:56 Dose: 5 mg Documented By: ЮЛИЯ Oxycodone HCl (Oxycodone Hcl Ir 5 Mg Tab (Immediate Release)) 5 mg PO NOW STA Stop: 04/11/24 11:12 Last Admin: 04/11/24 11:20 Dose: 5 mg Documented By: TARA Oxycodone HCl (Oxycodone Hcl Ir 5 Mg Tab (Immediate Release)) 5 mg PO TODAY@1200 [facility] Stop: 04/12/24 18:00 Last Admin: 04/12/24 12:30 Dose: 5 mg Documented By: ROYA Oxycodone HCl (Oxycodone Hcl Ir 5 Mg Tab (Immediate Release)) 5 mg PO NOW STA Stop: 04/12/24 15:17 Last Admin: 04/14/24 07:19 Dose: Not Given Documented By: MK Polyethylene Glycol (Polyethylene (Miralax) 17 Gm Pack) 17 gm PO DAILY ONE Stop: 03/27/24 10:17 Last Admin: 03/27/24 13:49 Dose: 17 gm Documented By: CF Polyethylene Glycol (Polyethylene (Miralax) 17 Gm Pack) 17 gm PO DAILY JOSE Stop: 05/08/24 09:59 Last Admin: 04/08/24 11:23 Dose: Not Given Documented By: CMV Potassium Chloride (Potassium Chloride Crtab 20 Meq Tabcr) 40 meq PO Q6 JOSE Stop: 03/16/24 18:01 Last Admin: 03/16/24 17:11 Dose: 40 meq Documented By: ЮЛИЯ Admin: 03/16/24 13:20 Dose: 40 meq Documented By: Admin: 03/16/24 06:35 Dose: Not Given Documented By: AURORA(2) Admin: 03/15/24 23:37 Dose: 40 meq Documented By: AURORA(2) Potassium Chloride (Potassium Chloride Crtab 20 Meq Tabcr) 40 meq PO NOW STA Stop: 03/23/24 10:11 Last Admin: 03/23/24 12:42 Dose: 40 meq Documented By: KKS Potassium Chloride (Potassium Chloride Crtab 20 Meq Tabcr) 40 meq PO NOW STA Stop: 03/28/24 08:26 Last Admin: 03/28/24 09:07 Dose: 40 meq Documented By: MS Potassium Chloride (Potassium Chloride Pwd 20 Meq Pack) 40 meq PO NOW STA Stop: 03/29/24 06:43 Last Admin: 03/29/24 08:22 Dose: 40 meq Documented By: RRCassia Potassium Chloride (Potassium Chloride Crtab 20 Meq Tabcr) 40 meq PO NOW STA Stop: 03/29/24 12:19 Last Admin: 03/29/24 13:04 Dose: 40 meq Documented By: RRCassia Potassium Chloride (Potassium Chloride Crtab 20 Meq Tabcr) 40 meq PO NOW STA Stop: 04/02/24 14:39 Last Admin: 04/02/24 14:51 Dose: 40 meq Documented By: ADÁN Potassium Chloride (Potassium Chloride Crtab 20 Meq Tabcr) 40 meq PO NOW STA Stop: 04/07/24 17:26 Last Admin: 04/07/24 18:29 Dose: 40 meq Documented By: ANDREI Sodium Chloride (Sodium Chlor 7% 4 Ml Neb) 4 ml NEB BIDR JOSE Stop: 05/11/24 18:59 Last Admin: 04/13/24 07:04 Dose: 4 ml Documented By: Admin: 04/12/24 20:01 Dose: 4 ml Documented By: Admin: 04/12/24 07:12 Dose: 4 ml Documented By: Admin: 04/11/24 20:09 Dose: 4 ml Documented By: EML Tramadol HCl (Tramadol Hcl 50 Mg Tablet) 50 mg PO NOW STA Stop: 04/02/24 23:13 Last Admin: 04/03/24 00:00 Dose: Not Given Documented By: CRH Tramadol HCl (Tramadol Hcl 50 Mg Tablet) 50 mg PO NOW STA Stop: 04/03/24 02:40 Last Admin: 04/03/24 02:56 Dose: 50 mg Documented By: EUGENIA
--- NOTE | 2024-04-14 16:26 | Communication Note ---
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 WBC went up to 80K however was given Neulasta on 04/10. WBC has normalized, blood culturs and urine cultures negative. Afebrile. 3rd round of chemotherapy will be due to start around 04/28/24. Plan is still discharge to rehab. Since patients wbc has normalized and blood cultures and urine culture negative, I feel can proceed with port placement as shceduled on Wednesday 04/[address] Rankin. Hold eliquis starting tomorrow, hold Heparin thursday midnight and npo thursday midnight.
[2024-04-14] MEDS: LORazepam 0.5 MG TAB PO PRN (23:20)
[2024-04-15] MEDS ORDERED: ALBUT/IPRATROP 3MG/0.5MG NEB 3 ML VIAL NEB PRN (04:02)
[2024-04-15] MEDS: ACETAMINOPHEN 325 MG TAB PO PRN (04:19)
[2024-04-15] MEDS ORDERED: METOPROLOL TARTRATE 50 MG TAB PO SCH (09:00)
[2024-04-15] MEDS: oxyCODONE HCL IR 5 MG TAB (IMMEDIATE RELEASE) PO PRN ×3 (10:02→13:07)
[2024-04-15] MEDS: METOPROLOL TARTRATE 25 MG TAB PO SCH (10:45)
[2024-04-15] MEDS: HEPARIN SOD 5,000 UNIT/0.5 ML VIAL SQ SCH (10:46)
--- NOTE | 2024-04-15 10:49 | Ultrasound Report ---
US venous doppler UE LT CLINICAL HISTORY: Incessant L arm pain, r/o DVT PROCEDURE: Left upper extremity real-time compression venous ultrasound with Duplex and color Doppler imaging. Comparison: None available at the time of this dictation. FINDINGS/IMPRESSION: There is normal compressibility of the deep venous system from the forearm through the subclavian vei n. Normal vascular flow is currently identified. No evidence of superficial thrombosis is identified. ACT 112: Negative or not required by law. Electronically signed by: Umesh De Leon M.D. 04/15/2024 10:48 AM
[2024-04-15] MEDS: DOCUSATE SODIUM 100 MG CAP PO ONE (10:53)
--- NOTE | 2024-04-15 11:06 | Hospitalist Progress Note ---
Date of Service April 15, 2024 Assessment & Plan (1) Suspected malignant neoplasm of lung: (2) Acute kidney injury: (3) Lymphadenopathy, mediastinal: (4) Paroxysmal atrial fibrillation: (5) Hypokalemia: (6) Mild right ventricular systolic dysfunction: Plan Per previous hospitalist notes with some daily updates/addendum: Sheri Camacho is an 83-year-old F with PMHx of HFpEF, A-fib, thoracic aortic aneurysm, HTN, osteoporosis, inflamed seborrheic keratosis, major depressive disorder, tobacco use disorder, aortic valve replacement with bioprosthetic valve who presented to the ED with acute hypoxemic respiratory failure due to suspected lung malignancy and concern for metastatic disease. 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 Cardiomegaly with pulmonary vascular congestion. Left basilar opacity. * CTA chest: No PE. Large right hilar/upper lobe mass measuring 10 x 8 cm highly suspicious for primary bronchogenic malignancy. Right anterior diaphragmatic lymphadenopathy representing metastatic disease. 2.1 cm left upper lobe nodule abutting the mediastinum likely representing metastatic disease. Small right pleural effusion suggestive of malignant pleural effusion. * CTAP: Negative for metastatic disease. 1.9 cm left adrenal nodule which was likely present on CT of September 25, 2022. Small right pleural effusion. * CT head and CTA head/neck: No acute findings. BioFire was NEGATIVE S/P bronchoscopy 03/17/24 with worsening respiratory failure requiring BiPAP. Patient was weaned off of BiPAP and now on oxygen mask. --> Currently 95% SpO2 on 3L. Heme/Onc Evaluation - S/P Cycle 1 of carbo/etoposide (03/18) [carboplatin day 1, etoposide day 1-3]. Completed cycle 2 of chemotherapy treatment 04/07 - 04/09 S/P Neupogen 04/10 According to the regimen implemented by Heme/Onc, patient should be set to under cycle 3 of chemotherapy ~04/28. Patient to have Mediport placed on Thursday (04/18) with General Surgery per Dr. Lyle's recommendation. --> Holding Eliquis starting TOMORROW AM (04/15); will start her on SQ heparin tomorrow -Need to have patient NPO at midnight on Thursday (04/17); will need to stop SQ heparin Thursday (04/17) at midnight per general surgery - all orders placed. 04/11 --> Pt feeling ill, ? chemo induced vs. concern for developing infection WBC 76k, urine, blood cultures, lactic acid obtained Chest CT: Cardiomegaly and emphysema. 2. A large right upper lobe paramediastinal mass lesion with mediastinal indication a significantly decreased in size as compared to 03/15/2024. Metastatic right cardiophrenic lymphadenopathy has also decreased from previous. 3. Small right and trace left pleural effusions. 4. Patchy airspace opacities in the right lower lobe are nonspecific and may be on an infectious/inflammatory basis. Correlate clinically. Attention at follow-up will be required. 5. An 11 mm left lower lobe nodular opacity is new from previous and may also be inflammatory. Attention at follow-up will be required. 6. A 2.2 cm spiculated lesion in the paramediastinal left upper lobe is unchanged. This remains highly suspicious for neoplasm. Empirically covering w/ IV cefepime and Flagyl Blood culture shows NGTD Urine culture w/ 3 types of organisms present, all low counts probably skin indio 04/13 --> Pt still not feeling great. C/o weakness, fatigue and generalized body aches. -No labs collected today per pt's request to not be stuck so much -Pending Mediport placement on Thursday -No reported fevers, chills -Blood culture shows NGTD -Will continue empiric coverage w/ IV cefepime, Flagyl 04/14 --> Pt still c/o generalized weakness, fatigue and generalized body aches. -WBC normalized at 6.7 this morning -Pending Mediport placement w/ Dr. Rankin on Thursday -Still denies having any fevers, chills -Blood culture still showing NGTD -Stopping IV cefepime, Flagyl tomorrow 04/15 --> Pt still not feeling great, very agitated/upset this morning and c/o ongoing fatigue and generalized weakness. -WBC normalized at 6.7 yesterday -Pending Mediport placement tanvi/ Dr. Rankin on Thursday -Still denies having any fevers, chills -Blood culture still showing NGTD -Will finish IV cefepime, Flagyl course today -Will repeat CBC w/ diff and BMP on Thursday (04/17) prior to Mediport placement on Thursday (04/18) Left Arm Pain (04/15) Pt notes significant L arm pain this morning States pain 2/2 blood draws, requesting pain medication Started her on po oxycodone 2.5mg Q6H - did NOT work Increased dose of oxy to 5mg Q6H - did NOT work Will increase oxy to 10mg now If 10mg oxy dose doesn't work, will try IV Dilaudid Made nursing staff aware Pt instructed to reach out if pain still not controlled Will continue w/ ice application Ordered venous doppler of LUE to r/o DVT Venous doppler of LUE is NEGATIVE --> "There is normal compressibility of the deep venous system from the forearm through the subclavian vein. Normal vascular flow is currently identified. No evidence of superficial thrombosis is identified." Pleural Effusions: Acute Admitting imaging: CXR with asymmetric right hilar mass like enlargement. Cardiomegaly with pulmonary vascular congestion. Left basilar opacity. Repeat CXR on 03/31 showed pulmonary vascular congestion, suspected atelectasis Pt now weaned to 3L, was given IV Lasix 40 mg on 04/01 and 04/02 04/06 CXR: Cardiomegaly with pulmonary vascular congestion and unchanged right pleural effusion She was seen and evaluated by Pulm who feels hypoxia in setting of compressive atelectasis due to mass, pleural effusions minimal Takes Bumex twice weekly at home Continue to monitor I&Os Patient does have R>L LE edema give history of history of ankle fractures Was on scheduled nebs, pt is not fond of breathing treatments Switched albuterol nebs to PRN, discontinued hypertonic nebs per pt's request Remain off home diuretic, will continue to hold given softer BPs SVC Syndrome HTN Non-Obstructive CAD Valvular Heart Disease Patient OOB to chair and bathroom BP 154/69 this AM HOLD Amlodipine, Losartan 2/2 softer BPs recently Continue ASA, statin Stroke-like symptoms Myoclonic jerks Continue statin, ASA and Eliquis Pancytopenia: Likely due to chemotherapy Per Heme/Onc note, received GCSF on 03/21 Dr. Lyle recommended additional dose of Neupogen 480mcg on 03/30 and 03/31 Pt received GCSF post-chemo on 04/10 WBC improving from 77k on 04/11 --> 33k on 04/12, likely in setting of GCSF and underlying infection WBC yesterday (04/14) normalized at 6.47k Will repeat CBC w/ diff and BMP on Thursday (04/17) prior to Mediport placement on Thursday (04/18) Normocytic anemia: Chronic, stable Anemia labs: folate/b12 normal; iron 37 and ferritin 58.4 --> C/W iron PO Atrial fibrillation: Continue Eliquis, amiodarone and Lopressor Will need to hold Eliquis beginning THURSDAY AM (04/15) prior to Mediport placement Will start SQ heparin given need to stop Eliquis --> Will need to hold SQ heparin on Thursday at midnight (04/17) Ascending Aortic Aneurysm Dissection s/p Repair: CTM, BP Control Melatonin HS to aid with sleep Gabapentin increased to 600mg TID VTE Prophylaxis: Holding Eliquis starting today and switching to SQ heparin until Thursday (04/17) at midnight - will hold for Mediport placement on Thursday (04/18). Conditional code: Per admitting Dr --> Chest compressions are acceptable, NO intubation. Disposition: Continue to monitor day to day, pt is accepted at [facility]. Was to d/c pt on 04/11, but due to ADR of CHEMO and b/l pneumonia, discharge was postponed. CM will likely need to reapply for auth. So when felt pt is medically stable, please let CM know. Also pt scheduled for Mediport placement this upcoming Thursday (04/18), so if slow to improve, may benefit from continued hospitalization until port placement w/ Gen Surg. Gen Surg OK with her being d/c to rehab after her port is placed. Patient's son, Timur, wishes for daily updates --> #[phone] Patient seen in collaboration with Dr. Gutierrez. Please see addendum. I spent a total of 55 minutes coordinating, documenting, and providing care for this patient excluding time spent in the performance of separately billed services. This included personally reviewing all current laboratories and imaging studies, medical reconciliation, outpatient chart review and discussion with specialists. This chart was completed in part utilizing Speech Voice Recognition Software. Grammatical errors, random word insertions, pronoun errors, and incomplete sentences are an occasional consequence of this system due to software limitations, ambient noise, and hardware issues. Any formal questions or concerns about the content, text, or information contained within the body of this dictation should be directly addressed to the provider for clarification. Pt c/o significant discomfort w/ repeated sticks for blood draws. Unless medically necessary, will stop doing DAILY labs from here on out. Admission and Anticipated Discharge Date Admission Date: March 15, 2024 Supervising Physician Co-Signing Physician Notes Patient seen and examined at bedside independently. Patient reports of severe left arm pain. US duplex did not show any acute DVT No suggestion of underlying infection; no swelling, redness. Started on oxycodone and titrate upward. Plan for Port-A-Cath placement next week I have reviewed the advanced practitioner's documentation, and I agree with, and take responsibility for the plan of care I spent a total of 35 minutes coordinating, documenting, and providing care for this patient excluding time spent in the performance of separately billed services. All of the aforementioned completed while collaborating with the assigned advanced practitioner for a full treatment plan Subjective Patient seen at bedside in room W356-2. Patient very upset this morning. States she "wants to see the [facility] doctor." She is still very weak and fatigued. She is c/o significant pain in her L arm 2/2 blood draws. Still has some bruising on her L forearm from being stuck repeatedly yesterday. Mentions the ice packs only help a little bit. She is now requesting pain me dication. States she will refuse all blood draws from this point moving forward unless absolutely necessary. She is still experiencing some shortness of breath today. Currently on 2L O2, SpO2 holding steady ~94% throughout our discussion. She denies any fever, chills or chest pain at this time. She is no longer complaining of constipation, but would like to be placed on a daily Colace regimen. Does not wish to continue with Miralax or Senokot, as she is not fond of those medications. Review of Systems Review of Systems: At least ten systems reviewed and negative, except as noted in the HPI. Physical Exam Physical Exam: General: Vitals as above, NAD, sitting up in bed, ill-appearing. A&O x 3, conversing appropriately. Appears very upset, frustrated. HEENT: Normocephalic, atraumatic. Has lost most of her hair. Normal inspection, PERRL, conjunctivae normal, anicteric sclerae, mucous membranes moist. Respiratory: On 2L oxygen via face mask, lungs clear to auscultation. Lung sounds diminished b/l, no accessory muscle use. Cardiovascular: Regular rate, rhythm, no murmur, normal peripheral pulses. RLE trace edema, ankle brace in place. Vessels: No JVD. Abdomen/GI: Normal bowel sounds, soft, nontender, no hepatosplenomegaly. Extremities/Musculoskeletal: No cyanosis or clubbing, extremity motor strength intact. Moves all extremities. Neurologic: EOMI, accommodation nl, no face palsy, no dysarthria, CN's II-XI not formally tested but appear intact bilaterally. Skin: Warm, dry. Still has some bruising on her L posterior forearm region s/p blood draw, no active bleeding seen. Results & Data Results & Data Vital Signs (Past 12 Hours) Vital Signs Temp Pulse Resp BP Pulse Ox O2 Del Method O2 Flow Rate 04/15/24 08:11 37.0 C 90 16 154/69 H 90 Nasal Cannula 2 Diagnostic Findings Chest X-Ray 03/15/24 14:08 XR chest 1V portable CLINICAL HISTORY: Dyspnea COMPARISON STUDY: Chest radiograph and chest CT September 25, 2022. FINDINGS: Status post median sternotomy. Mild cardiomegaly is unchanged. Asymmetric right hilar mass-like enlargement is present. Left hilum is normal. There is a trace right pleural effusion. No pneumothorax is present. Pulmonary vascular congestion. Left basilar opacity similar to prior exam and favors atelectasis. IMPRESSION: 1. Asymmetric right hilar mass-like enlargement. Although this could be due to pulmonary vessels, a mass or lymphadenopathy cannot be excluded. Chest CT with contrast is recommended. 2. Cardiomegaly with pulmonary vascular congestion. Trace right pleural effusion. 3. Left basilar opacity which likely reflects atelectasis. ACT 112: Positive. There are findings on this exam that require communication between the performing entity and the patient following Patient Test Result Information Act ([place] Act 112) guidelines. Electronically signed by: Nam Delgado M.D. 03/15/2024 2:42 PM Chest CTA 03/15/24 15:02 CHEST CTA for PULMONARY ARTERIES CT DOSE: 727.07 mGy.cm HISTORY: Shortness of breath. TECHNIQUE: Multiaxial CT images of the chest were performed following the intravenous administration of contrast to evaluate the pulmonary arteries. 3D/Maximal intensity projection images were also obtained. Sagittal and coronal reformations were also reviewed. A dose lowering technique was utilized adhering to the principles of ALARA. COMPARISON STUDY: Chest CTA 09/25/2022. FINDINGS: Postoperative changes consistent with graft repair of an ascending thoracic aortic aneurysm. No evidence for an aortic dissection. 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 This remains unchanged. No filling defects within the pulmonary arteries to suggest a pulmonary embolus. However, there is mass effect within the right central pulmonary arteries due to the mediastinal/hilar mass with moderate narrowing of the right upper lobe pulmonary arteries. The heart is normal in size. There is a small right pleural effusion. No pericardial effusion. Limited views of the upper abdomen demonstrate normal liver and spleen. Right anterior diaphragmatic lymphadenopathy measuring up to 2.2 cm consistent with metastatic disease. A few subcentimeter thyroid nodules. These do not meet CT criteria for follow-up. Normal caliber esophagus. There are poststernotomy changes. No suspicious lytic or blastic osseous lesions. Emphysema. No pneumothorax. The right upper lobe bronchus is opacified/obstructed by the right hilar mass. There is also moderate to severe narrowing of the bronchus intermedius due to an endobronchial component of the right hilar mass. This is best seen image 114. The left central airways are patent. There is a 2.1 cm nodule within the left upper lobe abutting the mediastinum on image 153. This likely represents metastatic disease. Biapical pleural-parenchymal nodular densities remain stable and favor scarring. Small focal peripheral consolidation within the right upper lobe anteriorly may represent a postobstructive pneumonitis. There is been interval development of a large right hilar/upper lobe mass which invades into the mediastinum. This re sults in approximately 75% narrowing of the SVC without evidence for occlusion at this time. This mass extends in to the right paratracheal and subcarinal locations. No left hilar lymphadenopathy. This mass measures approximately 10 x 8 cm and encases multiple right pulmonary arteries and invades into the right upper lobe bronchi and bronchus intermedius. IMPRESSION: 1. No evidence for pulmonary embolus. 2. Interval development of a large right hilar/upper lobe mass measuring 10 x 8 cm described above. This is highly suspicious for a primary bronchogenic malignancy. 3. Right anterior diaphragmatic lymphadenopathy likely represents metastatic disease. 4. There is a 2.1 cm left upper lobe nodule abutting the mediastinum likely representing metastatic disease. 5. Small right pleural effusion which may represent a malignant pleural effusion. 6. This right hilar/upper lobe mass results in mass effect along the right pulmonary arteries as well as invasion into the right upper lobe bronchus and bronchus intermedius as described above. 7. This mass also results in severe narrowing of the SVC without evidence for occlusion at this time. 8. Additional findings as described above. ACT 112: Negative or not required by law. Electronically signed by: Martin Granados M.D. 03/15/2024 5:06 PM Abdomen/Pelvis CT 03/15/24 19:03 CT OF THE ABDOMEN AND PELVIS WITH CONTRAST CLINICAL HISTORY: Evaluate for metastatic disease. COMPARISON STUDY: CTA of the abdomen and pelvis September 25, 2022. Abdominal ultrasound June 22, 2017. TECHNIQUE: Following IV administration of 89 mL of Optiray, axial images of the abdomen and pelvis were obtained from the lung bases to the proximal femurs. Images were reviewed in the axial, sagittal, and coronal planes. IV contrast was administered without complication. Automated exposure control was utilized for the study. A dose lowering technique was utilized adhering to the principles of ALARA. Oral contrast was administered. FINDINGS: A small right pleural effusion is. A 2.8 x 1.9 cm right cardiophrenic angle lymph node on image 42 of 361 is present. There are no suspicious hepatic lesions. 9 mm lateral segment hypodense hepatic lesion is unchanged and CTA of September 25, 2022. This is benign. Spleen, kidneys and pancreas are unremarkable with exception of the left lower pole renal cyst. Left adrenal nodule measures 1.9 cm. Although suboptimally assessed on prior exam, this was likely present on CT of September 25, 2022. Mild nodularity of the right adrenal gland is also likely similar to prior CTA. The infrarenal abdominal aorta is ectatic, measuring 2.9 cm. There is extensive aortoiliac calcified plaque. No abdominal or pelvic lymphadenopathy is present. Prominent left retroperitoneal vessels are unchanged. No evidence for a bowel obstruction. The caliber and wall thickness of small and large bowel are normal. Postoperative findings within the spine are incidentally noted. No suspicious lesions are identified within the visualized skeletal structures. IMPRESSION: 1. No definite evidence for metastatic disease within the abdomen or pelvis. 2. 1.9 cm left adrenal nodule. This was likely present on CT of September 25, 2022. Although likely benign, this could be assessed with a PET/CT as indicated. 3. Pathologic right cardiophrenic angle lymph node. Small right pleural effusion. A malignant effusion cannot be excluded. ACT 112: Negative or not required by law. Electronically signed by: Nam Delgado M.D. 03/16/2024 7:[address] 03/16/24 08:29 CT head/brain wo/w con CT DOSE: 3111.05 mGy.cm CLINICAL HISTORY: Lung cancer. Assess for metastatic disease. TECHNIQUE: Multiaxial CT images of the head were performed both before and after intravenous administration of contrast. A dose lowering technique was utilized adhering to the principles of ALARA. COMPARISON STUDY: None. FINDINGS: Mild mucosal thickening within the ethmoid air cells. There are few opacified right inferior mastoid air cells. Multiple opacified left mastoid air cells are noted. No suspicious lytic or blastic osseous lesions. No calvarial fractures. There is mild motion artifact. The ventricles and sulci are within normal limits. There is no mass, hematoma, midline shift, acute infarct. Postcontrast sequences show no areas of abnormal enhancement. IMPRESSION: No evidence for intracranial metastatic disease. ACT 112: Negative or not required by law. Electronically signed by: Martin Granados M.D. 03/16/2024 4:[address] 03/16/24 21:54 Exam(s): CT HEAD Without Contrast EXAM: CT Head Without Intravenous Contrast CLINICAL HISTORY: Reason for exam: CVA. TECHNIQUE: Axial computed tomography images of the head/brain without intravenous contrast. CTDI is 45.33 mGy and DLP is 677.48 mGy-cm. Automated exposure control was utilized for the study. A dose lowering technique was utilized adhering to the principles of ALARA. COMPARISON: 03/16/2024 FINDINGS: Brain: No hemorrhage, extra-axial fluid collection, mass effect, or edema. Ventricles: Unremarkable. Bones/joints: Unremarkable. No fracture. Soft tissues: Unremarkable. Sinuses: No acute sinusitis. Mastoid air cells: Left mastoid effusion. IMPRESSION: 1. No acute intracranial abnormality. 2. Left mastoid effusion. Electronically signed by: Tom Nguyen MD 03/16/24 22:39 PM Head CTA 03/16/24 21:54 Exam(s): CTA HEAD With Contrast IV Amt: 116 ml opti 320 EXAM: CT Angiography Head With Intravenous Contrast CLINICAL HISTORY: Reason for exam: CVA?. TECHNIQUE: Axial computed tomographic angiography images of the head with intravenous contrast. CTDI is 58.49 mGy and DLP is 624.41 mGy-cm. Automated exposure control was utilized for the study. A dose lowering technique was utilized adhering to the principles of ALARA. MIP reconstructed images were created and reviewed. CONTRAST: Patient received 116 ml opti 320 of IV contrast COMPARISON: No relevant prior studies available. FINDINGS: Right internal carotid artery: No limiting atherosclerotic calcifications within the right ICA. No flow-limiting stenosis. No aneurysm. Right anterior cerebral artery: Unremarkable. No occlusion or significant stenosis. No aneurysm. Right middle cerebral artery: Unremarkable. No occlusion or significant stenosis. No aneurysm. Right posterior cerebral artery: Unremarkable. No occlusion or significant stenosis. No aneurysm. Right vertebral artery: Unremarkable as visualized. Left internal carotid artery: Atherosclerotic calcifications within the left ICA. No flow-limiting stenosis. No aneurysm. Left anterior cerebral artery: Unremarkable. No occlusion or significant stenosis. No aneurysm. Left middle cerebral artery: Unremarkable. No occlusion or significant stenosis. No aneurysm. Left posterior cerebral artery: Unremarkable. No occlusion or significant stenosis. No aneurysm. Left vertebral artery: No flow-limiting atherosclerotic calcifications within the left vertebral artery. Basilar artery: Unremarkable. No occlusion or significant stenosis. No aneurysm. IMPRESSION: No acute findings in the arteries of the head/brain. Electronically signed by: Tom Nguyen MD 03/16/24 22:41 PM Neck CTA 03/16/24 21:54 Exam(s): CTA NECK With Contrast IV Amt: 116 ml opti 320 EXAM: CT Angiography Neck With Intravenous Contrast CLINICAL HISTORY: Reason for exam: CVA?. TECHNIQUE: Routine carotid CT angiography protocol was performed with intravenous contrast. NASCET criteria using the distal ICAs for comparison were used for evaluation of stenoses. CTDI is 64.34 mGy and DLP is 961.59 mGy-cm. Automated exposure control was utilized for the study. A dose lowering technique was utilized adhering to the principles of ALARA. MIP reconstructed images were created and reviewed. CONTRAST: Patient received 116 ml opti 320 of IV contrast COMPARISON: None. FINDINGS: VASCULATURE: Right common carotid artery: Unremarkable. No occlusion or significant stenosis. No dissection. Right internal carotid artery: Atherosclerotic calcifications at the right carotid bulb. No flow-limiting stenosis. Right external carotid artery: Severe stenosis at the ostia of the right external carotid artery. Right vertebral artery: Unremarkable. No occlusion or significant stenosis. No dissection. Left common carotid artery: Unremarkable. No occlusion or significant stenosis. No dissection. Left internal carotid artery: Non flow-limiting atherosclerotic calcifications within the proximal left ICA. Left vertebral artery: Unremarkable. No occlusion or significant stenosis. No dissection. NECK: Bones/joints: Unremarkable. No acute fracture. Soft tissues: Unremarkable. Lung apices: Nodular airspace opacities in the upper lobes and a small right pleural effusion. CAROTID STENOSIS REFERENCE USING NASCET CRITERIA: % ICA stenosis = (1 - narrowest ICA diameter/diameter of distal cervical ICA) x 100. Mild - <50% stenosis. Moderate - 50-69% stenosis. Severe - 70-94% stenosis. Near occlusion - 95-99% stenosis. Occluded - 100% stenosis. IMPRESSION: 1. No flow-limiting stenosis. 2. Nodular airspace opacities in the upper lobes and a small right pleural effusion. Electronically signed by: Tom Nguyen MD 03/16/24 22:43 PM Chest X-Ray 03/17/24 09:01 XR chest 1V portable CLINICAL HISTORY: resp distress TECHNIQUE: Single frontal radiograph of the chest was obtained. Comparison: Comparison is made to chest radiograph 03/15/[address] chest 03/15/2024 FINDINGS: No lines and tubes are seen. Right mediastinal mass is seen, unchanged from prior exam. Airspace opacities are in the right greater than left lower lobe. Small right and trace left pleural effusions are seen. IMPRESSION: 1. Interval increase in small right and trace left pleural effusions with underlying airspace opacities which may represent atelectasis. 2. Again seen is right hilar mass. ACT 112: Negative or not required by law. Electronically signed by: Umesh De Leon M.D. 03/17/2024 9:28 AM Chest X-Ray 03/20/24 11:24 XR chest 1V portable CLINICAL HISTORY: ongoing resp symptoms, r/o effusion TECHNIQUE: Single frontal radiograph of the chest was obtained. Comparison: Comparison is made to chest radiograph 03/17/2024 FINDINGS: Median sternotomy wires are unchanged. Calcified aortic knob is seen. Right hilar mass is seen. Right lower lung airspace opacity is seen compatible with atelectasis. Small right pleural effusion, unchanged. IMPRESSION: 1. Stable small right pleural effusion. Left pleural effusion is more well se en. 2. Right hilar mass is again seen. ACT 112: Negative or not required by law. Electronically signed by: Umesh De Leon M.D. 03/20/2024 12:[address] 03/27/24 20:04 Exam(s): CT HEAD Without Contrast EXAM: CT Head Without Intravenous Contrast CLINICAL HISTORY: Reason for exam: schmid, mika, johnny. TECHNIQUE: Axial computed tomography images of the head/brain without intravenous contrast. CTDI is 38.76 mGy and DLP is 547.75 mGy-cm. Automated exposure control was utilized for the study. A dose lowering technique was utilized adhering to the principles of ALARA. COMPARISON: Comparison made to prior head CT from March 16, 2024. FINDINGS: Study is limited secondary to motion artifact. Brain: Unremarkable. No hemorrhage. Mild nonspecific white matter changes. No edema. Ventricles: Mild ventricular megaly. Bones/joints: Unremarkable. No acute fracture. Soft tissues: Unremarkable. Sinuses: Chronic right ethmoid sinusitis with single opacified air cell. No acute sinusitis. Mastoid air cells: There is a large amount of fluid in the left mastoid air cells. No mastoid effusion. IMPRESSION: No evidence of acute intracranial pathology. Electronically signed by: Kamala Perea MD 03/28/24 03:01 AM Chest X-Ray 03/31/24 15:27 XR chest 1V portable HISTORY: 83 years-old Female Eval for edema with hx of valvular disease COMPARISON: 03/20/2024, CTA chest 03/15/2024 TECHNIQUE: AP view of the chest FINDINGS: Cardiac silhouette is enlarged. Median sternotomy. No pneumothorax. Trace left and moderate right pleural effusions are similar to prior. Persistent right perihilar and right basilar consolidation. Decreased size of the large right hilar mass. Mild ill-defined peripheral opacities in the left midlung. Pulmonary vascular congestion. IMPRESSION: 1. Cardiomegaly with pulmonary vascular congestion. 2. Ill-defined peripheral opacities of the left mid lung may be artifactual or represent pneumonia. 3. Moderate right-sided pleural effusion with persistent right basilar consolidation. 4. Large right-sided hilar mass is better seen on the comparison CTA of the chest. ACT 112: Negative or not required by law. The above report was generated using voice recognition software. It may contain grammatical, syntax or spelling errors. Electronically signed by: Jordin Vela M.D. 03/31/2024 4:55 PM Chest X-Ray 04/02/24 07:00 SINGLE VIEW CHEST CLINICAL HISTORY: Follow-up congestive failure. FINDINGS: An AP, portable, upright chest radiograph is compared to study dated 03/31/2024 and correlated with chest CT dated 03/15/2024. The patient is status post midline sternotomy. The heart is enlarged and atherosclerotic calcification of the thoracic aorta. Pulmonary vascular congestion persists emphysema and chronic interstitial thickening is similar to previous. A large mediastinal mass lesion was much better assessed on the recent chest CT. The right and moderate left pleural effusions with dependent consolidation. No pneumothorax is seen. The skeletal structures are osteopenic. The bony thorax is grossly intact. IMPRESSION: 1. Cardiomegaly and emphysema with pulmonary vascular congestion. This is similar to 03/31/2024. 2. Right large left pleural effusions with dependent consolidation. 3. A large mediastinal mass lesion was better assessed on the recent chest CT. ACT 112: Negative or not required by law. Electronically signed by: Manjinder Myers M.D. 04/02/2024 7:14 AM Chest X-Ray 04/06/24 12:35 XR chest 1V portable HISTORY: 83 years-old Female SOB acute shortness of breath COMPARISON: Chest radiograph 04/02/2024, CTA chest 03/15/2024. TECHNIQUE: AP view the chest FINDINGS: Cardiac silhouette is enlarged. Median sternotomy. Layering right pleural effusion with right basilar consolidation redemonstrated, mildly improved. Edema. Pulmonary vascular congestion with interstitial coarsening. Mediastinal mass better seen on prior chest CT. IMPRESSION: 1. Cardiomegaly with pulmonary vascular congestion. 2. Unchanged right pleural effusion with mildly improved right basilar opacities. 3. Mediastinal mass is better assessed on prior chest CT. ACT 112: Negative or not required by law. The above report was generated using voice recognition software. It may contain grammatical, syntax or spelling errors. Electronically signed by: Jordin Vela M.D. 04/06/2024 2:27 PM Chest X-Ray 04/07/24 08:00 XR chest 1V portable CLINICAL HISTORY: SOB/small cell lung CA/pleural effusions COMPARISON STUDY: Chest CT March 15, 2024. Chest radiograph April 06, 2024. FINDINGS: There is no pneumothorax. Small right and trace left pleural effusions are similar to prior exam. Cardiomediastinal silhouette is stable. The mediastinal mass has decreased in size since chest CT of March 15, 2024. Slight asymmetric right hilar enlargement. There is pulmonary vascular congestion. This is unchanged. No consolidation is identified to suggest pneumonia. IMPRESSION: 1. Pulmonary vascular congestion, similar to prior exam. 2. No change in small right and trace left pleural effusions. ACT 112: Negative or not required by law. Electronically signed by: Nam Delgado M.D. 04/07/2024 7:[address] 04/11/24 10:23 CT SCAN OF THE CHEST WITHOUT IV CONTRAST CLINICAL HISTORY: Cough. Dyspnea. History of lung cancer. COMPARISON STUDY: Chest x-ray dated 04/07/2024. Prior chest CT scans, most recently dated 03/15/2024. TECHNIQUE: CT scan of the thorax was performed from the thoracic inlet to the upper abdomen. Images are reviewed in the axial, sagittal, and coronal planes. IV contrast was not administered for this examination as per the referring clinician. A dose lowering technique was utilized adhering to the principles of ALARA. CT DOSE: 274.29 mGy.cm FINDINGS: Thyroid: Enlarged and heterogeneous indicating goiter. Thoracic aorta: Postsurgical changes seen at the aortic root. There is advanced atherosclerotic calcification of the thoracic aorta. 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 This measures up to 4.7 cm in diameter. The remainder of the thoracic aorta is normal in caliber comment heart demonstrates standard 3-vessel anatomy. Heart: The patient is status post midline sternotomy. The heart is enlarged and without pericardial effusion. The coronary arteries are densely calcified. There is diminished attenuation of the cardiac blood pool as compared to the myocardium suggesting anemia. Lungs and pleural spaces: Moderately advanced emphysematous changes again noted. There are small right and trace left pleural effusions with dependent atelectasis. Patchy airspace opacities are seen in the right lower lobe. The trachea is clear. Secretions are noted in the left mainstem bronchus. A right upper lobe paramediastinal mass lesion with mediastinal invasion has significantly decreased in size from 03/15/2024. This now measures approximately 7 x 4 cm in maximum axial dimension. A 2.2 cm spiculated mass is again seen in the paramediastinal left upper lobe on image #59. This is similar to previous. A 4 mm right middle lobe nodule on image #145 is unchanged. An 11 mm nodular opacity is clearly seen previously. Foci of parenchymal scarring are seen throughout both lungs. Mediastinum: As noted above a right paramediastinal mass invades the right aspect of the mediastinum. Ilda: Not well assessed without IV contrast. Axillae: There is no axillary lymphadenopathy. Upper abdomen: Right cardiophrenic lymphadenopathy has decreased in size from previous. The largest node on image #194 now measures up to 1.3 cm. Partially visualized upper abdominal viscera is otherwise within normal limits. Skeletal structures: The skeletal structures are osteopenic. Degenerative change and kyphoscoliosis is noted in the spine. No lytic or blastic bony lesions are seen. IMPRESSION: 1. Cardiomegaly and emphysema. 2. A large right upper lobe paramediastinal mass lesion with mediastinal indication a significantly decreased in size as compared to 03/15/2024. Metastatic right cardiophrenic lymphadenopathy has also decreased from previous. 3. Small right and trace left pleural effusions. 4. Patchy airspace opacities in the right lower lobe are nonspecific and may be on an infectious/inflammatory basis. Correlate clinically. Attention at follow- up will be required. 5. An 11 mm left lower lobe nodular opacity is new from previous and may also be inflammatory. Attention at follow-up will be required. 6. A 2.2 cm spiculated lesion in the paramediastinal left upper lobe is unchanged. This remains highly suspicious for neoplasm. 7. Additional findings as above. ACT 112: Negative or not required by law. Electronically signed by: Manjinder Myers M.D. 04/11/2024 2:[address] 04/12/24 11:36 CT SCAN OF THE BRAIN WITHOUT IV CONTRAST CLINICAL HISTORY: Headache. COMPARISON STUDY: CT of the brain dated 03/27/2024. TECHNIQUE: Unenhanced axial CT scan of the brain is performed from the vertex to the skull base. A dose lowering technique was utilized adhering to the principles of ALARA. CT DOSE: 625.8 mGy.cm FINDINGS: Brain parenchyma: There is age-related involutional change noting mild subcortical and periventricular microangiopathic disease. There is no hemorrhage, mass effect, or evidence of acute territorial ischemia by CT criteria. Childress-white matter differentiation is preserved. No extra-axial fluid collection is seen. Ventricles, sulci, cisterns: Prominent secondary to involutional change. Intracranial vasculature: There is atherosclerotic calcification of the cavernous carotid and vertebral arteries. Calvarium: Unremarkable. Sinuses and mastoids: There is mucosal thickening within the right posterior ethmoid sinuses. The remaining visualized paranasal sinuses are clear. There is a large left mastoid effusion. A small amount of effusion is seen on the right. Orbits: The bony orbits are grossly intact. There are bilateral ocular lens implants. IMPRESSION: 1. There is no hemorrhage, mass effect, or evidence of acute territorial ischemia by CT criteria. 2. Left larger than right mastoid effusions are similar to previous. ACT 112: Negative or not required by law. Electronically signed by: Manjinder Myers M.D. 04/12/2024 1:12 PM Extremity Venous Study 04/15/24 09:13 US venous doppler UE LT CLINICAL HISTORY: Incessant L arm pain, r/o DVT PROCEDURE: Left upper extremity real-time compression venous ultrasound with Duplex and color Doppler imaging. Comparison: None available at the time of this dictation. FINDINGS/IMPRESSION: There is normal compressibility of the deep venous system from the forearm through the subclavian vein. Normal vascular flow is currently identified. No evidence of superficial thrombosis is identified. ACT 112: Negative or not required by law. Electronically signed by: Umesh De Leon M.D. 04/15/2024 10:48 AM Medications Administered Acetaminophen (Acetaminophen 325 Mg Tab) 650 mg PO QID PRN PRN Reason: pain/fever Stop: 05/15/24 03:58 Last Admin: 04/15/24 04:19 Dose: 650 mg Documented By: PAVEL Amlodipine Besylate (Amlodipine Besylate 5 Mg Tab) 2.5 mg PO QAM JOSE Stop: 04/21/24 08:59 Last Admin: 04/11/24 08:01 Dose: 2.5 mg Documented By: Admin: 04/10/24 08:51 Dose: 2.5 mg Documented By: Admin: 04/09/24 08:33 Dose: 2.5 mg Documented By: Admin: 04/08/24 09:13 Dose: 2.5 mg Documented By: Admin: 04/07/24 08:12 Dose: 2.5 mg Documented By: Admin: 04/06/24 08:28 Dose: 2.5 mg Documented By: Admin: 04/05/24 09:02 Dose: 2.5 mg Documented By: Admin: 04/04/24 08:09 Dose: 2.5 mg Documented By: Admin: 04/03/24 07:31 Dose: 2.5 mg Documented By: Admin: 04/02/24 09:17 Dose: 2.5 mg Documented By: Admin: 04/01/24 09:19 Dose: 2.5 mg Documented By: Admin: 03/31/24 07:47 Dose: 2.5 mg Documented By: Admin: 03/30/24 08:25 Dose: 2.5 mg Documented By: Admin: 03/29/24 08:25 Dose: 2.5 mg Documented By: Admin: 03/28/24 08:14 Dose: 2.5 mg Documented By: Admin: 03/27/24 08:00 Dose: 2.5 mg Documented By: Admin: 03/26/24 08:19 Dose: 2.5 mg Documented By: Admin: 03/25/24 09:18 Dose: 2.5 mg Documented By: Admin: 03/24/24 08:26 Dose: 2.5 mg Documented By: Admin: 03/23/24 08:09 Dose: 2.5 mg Documented By: NIKOLAI Apixaban (Apixaban 5 Mg Tablet) 5 mg PO BID JOSE Stop: 04/17/24 20:59 Last Admin: 04/14/24 20:07 Dose: 5 mg Documented By: Admin: 04/14/24 09:02 Dose: 5 mg Documented By: Admin: 04/13/24 20:31 Dose: 5 mg Documented By: Admin: 04/13/24 08:53 Dose: 5 mg Documented By: Admin: 04/12/24 20:33 Dose: 5 mg Documented By: Admin: 04/12/24 08:06 Dose: 5 mg Documented By: Admin: 04/11/24 20:47 Dose: 5 mg Documented By: Admin: 04/11/24 08:02 Dose: 5 mg Documented By: Admin: 04/10/24 20:31 Dose: 5 mg Documented By: Admin: 04/10/24 08:50 Dose: 5 mg Documented By: Admin: 04/09/24 20:51 Dose: 5 mg Documented By: Admin: 04/09/24 08:33 Dose: 5 mg Documented By: Admin: 04/08/24 20:26 Dose: 5 mg Documented By: Admin: 04/08/24 09:11 Dose: 5 mg Documented By: Admin: 04/07/24 21:35 Dose: 5 mg Documented By: Admin: 04/07/24 08:11 Dose: 5 mg Documented By: Admin: 04/06/24 20:26 Dose: 5 mg Documented By: Admin: 04/06/24 08:29 Dose: 5 mg Documented By: Admin: 04/05/24 20:39 Dose: 5 mg Documented By: Admin: 04/05/24 09:04 Dose: 5 mg Documented By: Admin: 04/04/24 20:03 Dose: 5 mg Documented By: Admin: 04/04/24 08:09 Dose: 5 mg Documented By: Admin: 04/03/24 21:34 Dose: 5 mg Documented By: Admin: 04/03/24 07:29 Dose: 5 mg Documented By: Admin: 04/02/24 20:56 Dose: 5 mg Documented By: Admin: 04/02/24 09:18 Dose: 5 mg Documented By: Admin: 04/01/24 20:24 Dose: 5 mg Documented By: Admin: 03/31/24 21:15 Dose: 5 mg Documented By: Admin: 03/31/24 07:48 Dose: 5 mg Documented By: Admin: 03/30/24 20:35 Dose: 5 mg Documented By: Admin: 03/30/24 08:24 Dose: 5 mg Documented By: Admin: 03/29/24 20:19 Dose: 5 mg Documented By: Admin: 03/29/24 08:26 Dose: 5 mg Documented By: Admin: 03/28/24 21:38 Dose: 5 mg Documented By: Admin: 03/28/24 08:14 Dose: 5 mg Documented By: Admin: 03/26/24 20:09 Dose: 5 mg Documented By: Admin: 03/26/24 08:19 Dose: 5 mg Documented By: Admin: 03/25/24 20:45 Dose: 5 mg Documented By: CRH(2) Admin: 03/25/24 09:19 Dose: 5 mg Documented By: Admin: 03/24/24 20:25 Dose: 5 mg Documented By: Admin: 03/24/24 08:30 Dose: 5 mg Documented By: Admin: 03/23/24 20:08 Dose: 5 mg Documented By: Admin: 03/23/24 08:11 Dose: 5 mg Documented By: Admin: 03/22/24 21:00 Dose: 5 mg Documented By: Admin: 03/22/24 08:01 Dose: 5 mg Documented By: Admin: 03/21/24 21:34 Dose: 5 mg Documented By: Admin: 03/21/24 09:04 Dose: 5 mg Documented By: Admin: 03/20/24 21:18 Dose: 5 mg Documented By: Admin: 03/20/24 10:27 Dose: 5 mg Documented By: Admin: 03/19/24 20:55 Dose: 5 mg Documented By: Admin: 03/19/24 09:39 Dose: 5 mg Documented By: Admin: 03/18/24 20:10 Dose: 5 mg Documented By: KS(2) Aspirin (Aspirin 81 Mg Ectab) 81 mg PO QAM [facility] Stop: 04/18/24 08:59 Last Admin: 04/15/24 10:45 Dose: 81 mg Documented By: Admin: 04/14/24 09:03 Dose: 81 mg Documented By: Admin: 04/13/24 08:53 Dose: 81 mg Documented By: Admin: 04/12/24 08:06 Dose: 81 mg Documented By: Admin: 04/11/24 08:02 Dose: 81 mg Documented By: Admin: 04/10/24 08:50 Dose: 81 mg Documented By: Admin: 04/09/24 08:34 Dose: 81 mg Documented By: Admin: 04/08/24 09:13 Dose: 81 mg Documented By: Admin: 04/07/24 08:13 Dose: 81 mg Documented By: Admin: 04/06/24 08:28 Dose: 81 mg Documented By: Admin: 04/05/24 09:04 Dose: 81 mg Documented By: Admin: 04/04/24 09:17 Dose: 81 mg Documented By: Admin: 04/03/24 07:31 Dose: 81 mg Documented By: Admin: 04/02/24 09:19 Dose: 81 mg Documented By: Admin: 04/01/24 09:19 Dose: 81 mg Documented By: Admin: 03/31/24 07:48 Dose: 81 mg Documented By: Admin: 03/30/24 08:24 Dose: 81 mg Documented By: Admin: 03/29/24 08:26 Dose: 81 mg Documented By: RRCassia Admin: 03/28/24 08:13 Dose: 81 mg Documented By: Admin: 03/26/24 08:18 Dose: 81 mg Documented By: Admin: 03/25/24 09:18 Dose: 81 mg Documented By: Admin: 03/24/24 08:28 Dose: 81 mg Documented By: Admin: 03/23/24 08:09 Dose: 81 mg Documented By: Admin: 03/22/24 08:01 Dose: 81 mg Documented By: Admin: 03/21/24 09:04 Dose: 81 mg Documented By: Admin: 03/20/24 10:27 Dose: 81 mg Documented By: Admin: 03/19/24 09:39 Dose: 81 mg Documented By: DTT Atorvastatin Calcium (Atorvastatin 40 Mg Tab) 40 mg PO HS JOSE Stop: 04/16/24 20:59 Last Admin: 04/14/24 20:07 Dose: 40 mg Documented By: Admin: 04/13/24 20:32 Dose: 40 mg Documented By: Admin: 04/12/24 20:33 Dose: 40 mg Documented By: Admin: 04/11/24 20:47 Dose: 40 mg Documented By: Admin: 04/10/24 20:31 Dose: 40 mg Documented By: Admin: 04/09/24 20:51 Dose: 40 mg Documented By: Admin: 04/08/24 20:26 Dose: 40 mg Documented By: Admin: 04/07/24 21:34 Dose: 40 mg Documented By: Admin: 04/06/24 20:26 Dose: 40 mg Documented By: Admin: 04/05/24 20:39 Dose: 40 mg Documented By: Admin: 04/04/24 20:04 Dose: 40 mg Documented By: Admin: 04/03/24 21:30 Dose: 40 mg Documented By: Admin: 04/02/24 20:56 Dose: 40 mg Documented By: Admin: 04/01/24 20:27 Dose: 40 mg Documented By: Admin: 03/31/24 21:15 Dose: 40 mg Documented By: Admin: 03/30/24 20:35 Dose: 40 mg Documented By: Admin: 03/29/24 20:19 Dose: 40 mg Documented By: Admin: 03/28/24 21:38 Dose: 40 mg Documented By: Admin: 03/27/24 21:13 Dose: 40 mg Documented By: Admin: 03/26/24 20:09 Dose: 40 mg Documented By: Admin: 03/25/24 20:43 Dose: 40 mg Documented By: CRH(2) Admin: 03/24/24 20:25 Dose: 40 mg Documented By: Admin: 03/23/24 20:07 Dose: 40 mg Documented By: Admin: 03/22/24 21:00 Dose: 40 mg Documented By: Admin: 03/21/24 21:35 Dose: 40 mg Documented By: Admin: 03/20/24 21:17 Dose: 40 mg Documented By: Admin: 03/19/24 20:53 Dose: 40 mg Documented By: Admin: 03/18/24 20:11 Dose: 40 mg Documented By: KS(2) Admin: 03/17/24 21:37 Dose: 40 mg Documented By: NAV Ferrous Sulfate (Ferrous Sulfate 325 Mg Tab) 325 mg PO QAM JOSE Stop: 04/24/24 08:59 Last Admin: 04/15/24 10:45 Dose: 325 mg Documented By: Admin: 04/14/24 09:03 Dose: 325 mg Documented By: Admin: 04/13/24 08:52 Dose: 325 mg Documented By: Admin: 04/12/24 08:06 Dose: 325 mg Documented By: Admin: 04/11/24 08:02 Dose: 325 mg Documented By: Admin: 04/10/24 08:51 Dose: 325 mg Documented By: Admin: 04/09/24 08:34 Dose: 325 mg Documented By: Admin: 04/08/24 09:13 Dose: 325 mg Documented By: Admin: 04/07/24 08:13 Dose: 325 mg Documented By: Admin: 04/06/24 08:28 Dose: 325 mg Documented By: Admin: 04/05/24 09:05 Dose: 325 mg Documented By: Admin: 04/04/24 08:09 Dose: 325 mg Documented By: Admin: 04/03/24 07:30 Dose: 325 mg Documented By: Admin: 04/02/24 09:19 Dose: 325 mg Documented By: Admin: 04/01/24 09:19 Dose: 325 mg Documented By: Admin: 03/31/24 07:47 Dose: 325 mg Documented By: Admin: 03/30/24 08:25 Dose: 325 mg Documented By: Admin: 03/29/24 08:39 Dose: 325 mg Documented By: Admin: 03/28/24 08:14 Dose: 325 mg Documented By: Admin: 03/27/24 08:00 Dose: 325 mg Documented By: Admin: 03/26/24 08:18 Dose: 325 mg Documented By: Admin: 03/25/24 09:19 Dose: 325 mg Documented By: MICHELLE Fluticasone Propionate (Fluticasone Propionate Na Spr 16 Gm Btl) 1 sprays NA HS JOSE Stop: 05/04/24 20:59 Last Admin: 04/14/24 20:07 Dose: 1 sprays Documented By: Admin: 04/13/24 20:34 Dose: 1 sprays Documented By: Admin: 04/12/24 20:34 Dose: 1 sprays Documented By: Admin: 04/11/24 20:47 Dose: 1 sprays Documented By: Admin: 04/10/24 20:31 Dose: 1 sprays Documented By: Admin: 04/09/24 20:51 Dose: 1 sprays Documented By: Admin: 04/08/24 20:26 Dose: 1 sprays Documented By: Admin: 04/07/24 21:35 Dose: 1 sprays Documented By: Admin: 04/06/24 20:28 Dose: 1 sprays Documented By: Admin: 04/05/24 20:40 Dose: 1 sprays Documented By: Admin: 04/04/24 20:08 Dose: 1 sprays Documented By: JASMYN Furosemide (Furosemide 40 Mg/4 Ml Vial) 40 mg IV QAM JOSE Stop: 05/02/24 08:59 Last Admin: 04/02/24 09:26 Dose: 40 mg Documented By: ADÁN Gabapentin (Gabapentin 600 Mg Tab) 600 mg PO DAILY@0900,1700 JOSE Stop: 05/08/24 16:59 Last Admin: 04/15/24 10:46 Dose: 600 mg Documented By: Admin: 04/14/24 16:39 Dose: 600 mg Documented By: Admin: 04/14/24 09:03 Dose: 600 mg Documented By: Admin: 04/13/24 17:35 Dose: 600 mg Documented By: Admin: 04/13/24 08:52 Dose: 600 mg Documented By: Admin: 04/12/24 18:26 Dose: 600 mg Documented By: RRCassia Admin: 04/12/24 08:06 Dose: 600 mg Documented By: Admin: 04/11/24 16:48 Dose: 600 mg Documented By: LMUmesh Admin: 04/11/24 08:02 Dose: 600 mg Documented By: Admin: 04/10/24 16:55 Dose: 600 mg Documented By: Admin: 04/10/24 08:50 Dose: 600 mg Documented By: Admin: 04/09/24 16:51 Dose: 600 mg Documented By: Admin: 04/09/24 08:34 Dose: 600 mg Documented By: Admin: 04/08/24 17:21 Dose: 600 mg Documented By: CMV Gabapentin (Gabapentin 300 Mg Cap) 300 mg PO DAILY@1200,2100 JOSE Stop: 05/08/24 11:59 Last Admin: 04/14/24 20:08 Dose: 300 mg Documented By: Admin: 04/14/24 12:32 Dose: 300 mg Documented By: Admin: 04/13/24 20:34 Dose: 300 mg Documented By: Admin: 04/13/24 12:06 Dose: 300 mg Documented By: Admin: 04/12/24 22:09 Dose: 300 mg Documented By: Admin: 04/12/24 11:26 Dose: 300 mg Documented By: Admin: 04/11/24 20:47 Dose: 300 mg Documented By: Admin: 04/11/24 11:20 Dose: 300 mg Documented By: Admin: 04/10/24 20:31 Dose: 300 mg Documented By: Admin: 04/10/24 12:29 Dose: 300 mg Documented By: Admin: 04/09/24 20:51 Dose: 300 mg Documented By: Admin: 04/09/24 11:49 Dose: 300 mg Documented By: Admin: 04/08/24 20:26 Dose: 300 mg Documented By: Admin: 04/08/24 13:48 Dose: 300 mg Documented By: CMV Guaifenesin (Guaifenesin 600 Mg Tabcr) 600 mg PO Q12 JOSE Stop: 05/11/24 20:59 Last Admin: 04/15/24 10:46 Dose: 600 mg Documented By: Admin: 04/14/24 20:08 Dose: 600 mg Documented By: Admin: 04/14/24 09:03 Dose: 600 mg Documented By: Admin: 04/13/24 20:34 Dose: 600 mg Documented By: Admin: 04/13/24 08:52 Dose: 600 mg Documented By: Admin: 04/12/24 20:34 Dose: 600 mg Documented By: Admin: 04/12/24 08:06 Dose: 600 mg Documented By: Admin: 04/11/24 20:46 Dose: 600 mg Documented By: ARPIT Heparin Sodium (Porcine) (Heparin Sod 5,000 Unit/0.5 Ml Vial) 5,000 units SQ Q8 JOSE Stop: 04/17/24 00:00 Last Admin: 04/15/24 10:46 Dose: 5,000 units Documented By: BRANDEN Hydroxyzine HCl (Hydroxyzine Hcl 10 Mg Tab) 10 mg PO QID PRN PRN Reason: Anxiety Stop: 04/28/24 05:03 Last Admin: 04/13/24 22:05 Dose: 10 mg Documented By: Admin: 04/09/24 11:07 Dose: 10 mg Documented By: Admin: 04/08/24 10:57 Dose: 10 mg Documented By: Admin: 04/07/24 09:40 Dose: 10 mg Documented By: AAIlana Admin: 04/06/24 08:26 Dose: 10 mg Documented By: Admin: 04/01/24 20:58 Dose: 10 mg Documented By: Admin: 03/31/24 07:47 Dose: 10 mg Documented By: Admin: 03/30/24 08:26 Dose: 10 mg Documented By: Admin: 03/29/24 05:28 Dose: 10 mg Documented By: HUMBERTO Ondansetron HCl 6 mg/ Dextrose 53 mls @ 200 mls/hr IV Q6H PRN PRN Reason: Nausea And Vomiting - 1st line Stop: 04/20/24 08:17 Last Infusion: 04/15/24 04:30 Dose: Infused Documented By: Admin: 04/15/24 03:56 Dose: 200 mls/hr Documented By: Infusion: 04/11/24 14:36 Dose: Infused Documented By: Admin: 04/11/24 14:10 Dose: 200 mls/hr Documented By: TARA Cefepime HCl 2,000 mg/ Syringe 20 mls @ 5 mls/min IV Q8H JOSE; Protocol Stop: 04/15/24 10:59 Last Admin: 04/15/24 03:57 Dose: 5 mls/min Documented By: Admin: 04/14/24 18:03 Dose: 5 mls/min Documented By: Admin: 04/14/24 12:32 Dose: 5 mls/min Documented By: Admin: 04/14/24 02:29 Dose: 5 mls/min Documented By: Admin: 04/13/24 18:35 Dose: 5 mls/min Documented By: Admin: 04/13/24 11:23 Dose: 5 mls/min Documented By: Admin: 04/13/24 03:00 Dose: 5 mls/min Documented By: Admin: 04/12/24 18:16 Dose: 5 mls/min Documented By: Admin: 04/12/24 11:23 Dose: 5 mls/min Documented By: Admin: 04/12/24 02:15 Dose: 5 mls/min Documented By: Admin: 04/11/24 18:43 Dose: 5 mls/min Documented By: Admin: 04/11/24 11:07 Dose: 5 mls/min Documented By: TARA Metronidazole (Flagyl) 500 mg in 100 mls @ 100 mls/hr IV Q8H JOSE; Protocol Stop: 04/15/24 14:59 Last Infusion: 04/15/24 07:34 Dose: Infused Documented By: Admin: 04/15/24 06:24 Dose: 100 mls/hr Documented By: Infusion: 04/14/24 23:45 Dose: Infused Documented By: Admin: 04/14/24 22:26 Dose: 100 mls/hr Documented By: Infusion: 04/14/24 18:03 Dose: Infused Documented By: Admin: 04/14/24 16:34 Dose: 100 mls/hr Documented By: Infusion: 04/14/24 07:05 Dose: Infused Documented By: Admin: 04/14/24 05:58 Dose: 100 mls/hr Documented By: Infusion: 04/13/24 23:10 Dose: Infused Documented By: Admin: 04/13/24 22:02 Dose: 100 mls/hr Documented By: Infusion: 04/13/24 16:38 Dose: Infused Documented By: Admin: 04/13/24 15:38 Dose: 100 mls/hr Documented By: Infusion: 04/13/24 07:02 Dose: Infused Documented By: Admin: 04/13/24 06:02 Dose: 100 mls/hr Documented By: Infusion: 04/12/24 23:38 Dose: Infused Documented By: Admin: 04/12/24 22:11 Dose: 100 mls/hr Documented By: Infusion: 04/12/24 16:25 Dose: Infused Documented By: Admin: 04/12/24 15:15 Dose: 100 mls/hr Documented By: Infusion: 04/12/24 07:26 Dose: Infused Documented By: Admin: 04/12/24 06:30 Dose: 100 mls/hr Documented By: Infusion: 04/11/24 23:31 Dose: Infused Documented By: Admin: 04/11/24 22:30 Dose: 100 mls/hr Documented By: Infusion: 04/11/24 16:47 Dose: Infused Documented By: LMUmesh Admin: 04/11/24 15:45 Dose: 100 mls/hr Documented By: TARA Loratadine (Loratadine 10 Mg Tab) 10 mg PO QAM JOSE Stop: 04/28/24 14:44 Last Admin: 04/15/24 10:48 Dose: 10 mg Documented By: Admin: 04/14/24 09:03 Dose: 10 mg Documented By: Admin: 04/13/24 08:53 Dose: 10 mg Documented By: Admin: 04/12/24 08:06 Dose: 10 mg Documented By: Admin: 04/11/24 08:02 Dose: 10 mg Documented By: Admin: 04/10/24 08:50 Dose: 10 mg Documented By: Admin: 04/09/24 08:32 Dose: 10 mg Documented By: Admin: 04/08/24 09:13 Dose: 10 mg Documented By: Admin: 04/07/24 08:14 Dose: 10 mg Documented By: Admin: 04/06/24 08:28 Dose: 10 mg Documented By: Admin: 04/05/24 09:04 Dose: 10 mg Documented By: Admin: 04/04/24 08:09 Dose: 10 mg Documented By: Admin: 04/03/24 07:31 Dose: 10 mg Documented By: Admin: 04/02/24 09:19 Dose: 10 mg Documented By: Admin: 04/01/24 09:19 Dose: 10 mg Documented By: Admin: 03/31/24 07:47 Dose: 10 mg Documented By: Admin: 03/30/24 07:15 Dose: 10 mg Documented By: Admin: 03/29/24 15:23 Dose: 10 mg Documented By: ROYA Lorazepam (Lorazepam 0.5 Mg Tab) 0.5 mg PO Q6H PRN PRN Reason: Anxiety Stop: 05/14/24 20:51 Last Admin: 04/15/24 07:43 Dose: 0.5 mg Documented By: Admin: 04/14/24 23:20 Dose: 0.5 mg Documented By: PAVEL Melatonin (Melatonin 3 Mg Tab) 3 mg PO HS PRN PRN Reason: Sleep Stop: 05/07/24 22:55 Last Admin: 04/13/24 22:05 Dose: 3 mg Documented By: Admin: 04/10/24 22:32 Dose: 3 mg Documented By: Admin: 04/10/24 02:02 Dose: 3 mg Documented By: JANES Metoprolol Tartrate (Metoprolol Tartrate 25 Mg Tab) 25 mg PO BID JOSE Stop: 05/15/24 08:59 Last Admin: 04/15/24 10:45 Dose: 25 mg Documented By: BRANDEN Miconazole Nitrate (Miconazole Nitrate 2% Cr 30 Gm Tube) 1 appln EXT BID JSOE Stop: 04/26/24 20:59 Last Admin: 04/15/24 10:49 Dose: 1 appln Documented By: Admin: 04/14/24 20:10 Dose: 1 appln Documented By: Admin: 04/14/24 09:04 Dose: 1 appln Documented By: Admin: 04/13/24 20:37 Dose: 1 appln Documented By: Admin: 04/13/24 08:53 Dose: 1 appln Documented By: Admin: 04/12/24 20:34 Dose: 1 appln Documented By: Admin: 04/12/24 08:11 Dose: 1 appln Documented By: Admin: 04/11/24 20:51 Dose: 1 appln Documented By: Admin: 04/11/24 08:03 Dose: 1 appln Documented By: Admin: 04/10/24 20:31 Dose: 1 appln Documented By: Admin: 04/10/24 08:53 Dose: 1 appln Documented By: Admin: 04/09/24 20:51 Dose: 1 appln Documented By: Admin: 04/09/24 11:09 Dose: 1 appln Documented By: Admin: 04/08/24 20:27 Dose: 1 appln Documented By: Admin: 04/08/24 09:17 Dose: 1 appln Documented By: Admin: 04/07/24 21:35 Dose: 1 appln Documented By: Admin: 04/07/24 08:14 Dose: 1 appln Documented By: Admin: 04/06/24 20:29 Dose: 1 appln Documented By: Admin: 04/06/24 08:29 Dose: 1 appln Documented By: Admin: 04/05/24 20:40 Dose: 1 appln Documented By: Admin: 04/05/24 09:05 Dose: 1 appln Documented By: Admin: 04/04/24 20:09 Dose: 1 appln Documented By: Admin: 04/04/24 08:12 Dose: 1 appln Documented By: Admin: 04/03/24 21:33 Dose: 1 appln Documented By: Admin: 04/03/24 07:33 Dose: 1 appln Documented By: Admin: 04/02/24 21:00 Dose: 1 appln Documented By: Admin: 04/02/24 09:33 Dose: 1 appln Documented By: Admin: 04/01/24 20:28 Dose: 1 appln Documented By: Admin: 04/01/24 09:29 Dose: 1 appln Documented By: Admin: 03/31/24 21:17 Dose: 1 appln Documented By: Admin: 03/31/24 07:48 Dose: 1 appln Documented By: Admin: 03/30/24 20:35 Dose: 1 appln Documented By: Admin: 03/30/24 08:29 Dose: 1 appln Documented By: Admin: 03/29/24 20:20 Dose: 1 appln Documented By: Admin: 03/29/24 09:56 Dose: 1 appln Documented By: Admin: 03/28/24 21:39 Dose: 1 appln Documented By: Admin: 03/28/24 08:15 Dose: 1 appln Documented By: Admin: 03/27/24 21:14 Dose: 1 appln Documented By: MMG Oxycodone HCl (Oxycodone Hcl Ir 5 Mg Tab (Immediate Release)) 2.5 mg PO Q6H PRN PRN Reason: Severe Pain (Scale 7, 8, 9,10) Stop: 04/29/24 09:11 Last Admin: 04/15/24 10:02 Dose: 2.5 mg Documented By: BRANDEN Petrolatum (Butt Paste (Zinc Oxide 16%) 171 Appln/57 Gm Jar) 1 appln EXT BID JOSE Stop: 04/26/24 20:59 Last Admin: 04/15/24 10:49 Dose: 1 appln Documented By: Admin: 04/14/24 20:10 Dose: 1 appln Documented By: Admin: 04/14/24 09:04 Dose: 1 appln Documented By: Admin: 04/13/24 20:37 Dose: 1 appln Documented By: Admin: 04/13/24 08:52 Dose: Not Given Documented By: Admin: 04/12/24 20:35 Dose: 1 appln Documented By: Admin: 04/12/24 08:10 Dose: Not Given Documented By: Admin: 04/11/24 20:51 Dose: 1 appln Documented By: Admin: 04/11/24 08:03 Dose: 1 appln Documented By: Admin: 04/10/24 20:31 Dose: 1 appln Documented By: Admin: 04/10/24 08:52 Dose: 1 appln Documented By: Admin: 04/09/24 20:51 Dose: 1 appln Documented By: Admin: 04/09/24 11:09 Dose: 1 appln Documented By: Admin: 04/08/24 20:27 Dose: 1 appln Documented By: Admin: 04/08/24 09:17 Dose: Not Given Documented By: Admin: 04/07/24 21:35 Dose: Not Given Documented By: Admin: 04/07/24 08:14 Dose: Not Given Documented By: Admin: 04/06/24 20:29 Dose: Not Given Documented By: Admin: 04/06/24 08:29 Dose: Not Given Documented By: Admin: 04/05/24 20:40 Dose: Not Given Documented By: Admin: 04/05/24 09:05 Dose: 1 appln Documented By: Admin: 04/04/24 20:09 Dose: 1 appln Documented By: Admin: 04/04/24 08:12 Dose: 1 appln Documented By: Admin: 04/03/24 21:32 Dose: Not Given Documented By: Admin: 04/03/24 07:33 Dose: 1 appln Documented By: Admin: 04/02/24 21:00 Dose: Not Given Documented By: Admin: 04/02/24 09:32 Dose: 1 appln Documented By: Admin: 04/01/24 20:28 Dose: 1 appln Documented By: Admin: 04/01/24 09:30 Dose: 1 appln Documented By: Admin: 03/31/24 21:17 Dose: 1 appln Documented By: Admin: 03/31/24 07:48 Dose: 1 appln Documented By: Admin: 03/30/24 20:35 Dose: 1 appln Documented By: Admin: 03/30/24 08:29 Dose: 1 appln Documented By: Admin: 03/29/24 20:20 Dose: 1 appln Documented By: Admin: 03/29/24 09:56 Dose: 1 appln Documented By: Admin: 03/28/24 21:39 Dose: 1 appln Documented By: Admin: 03/28/24 08:15 Dose: 1 appln Documented By: Admin: 03/27/24 21:13 Dose: 1 appln Documented By: MMG Sodium Chloride (Sodium Chloride 0.65% Na Soln 45 Ml (Pettis)) 2 sprays NA TID PRN PRN Reason: Nasal Congestion Stop: 04/27/24 22:01 Last Admin: 03/28/24 22:58 Dose: 2 sprays Documented By: HUMBERTO Discontinued Medications Acetaminophen (Acetaminophen 325 Mg Tab) 650 mg PO Q4H PRN PRN Reason: Pain or Fever Stop: 04/14/24 20:33 Last Admin: 04/05/24 07:19 Dose: 650 mg Documented By: Admin: 04/05/24 03:16 Dose: 650 mg Documented By: Admin: 04/04/24 22:51 Dose: 650 mg Documented By: Admin: 04/04/24 02:28 Dose: 650 mg Documented By: Admin: 04/03/24 21:34 Dose: 650 mg Documented By: Admin: 04/02/24 22:29 Dose: 650 mg Documented By: Admin: 04/02/24 00:56 Dose: 650 mg Documented By: Admin: 03/27/24 12:23 Dose: 650 mg Documented By: Admin: 03/24/24 23:12 Dose: 650 mg Documented By: Admin: 03/20/24 10:27 Dose: 650 mg Documented By: Admin: 03/17/24 17:42 Dose: 650 mg Documented By: Admin: 03/16/24 23:21 Dose: 650 mg Documented By: AKCassia Acetaminophen (Acetaminophen 325 Mg Tab) 650 mg PO NOW STA Stop: 03/26/24 20:49 Last Admin: 03/26/24 21:41 Dose: 650 mg Documented By: MMChika Acetaminophen (Acetaminophen 500 Mg Tab) 1,000 mg PO TID PRN PRN Reason: Pain or Fever Stop: 04/14/24 20:33 Last Admin: 04/14/24 18:14 Dose: 1,000 mg Documented By: Admin: 04/14/24 09:02 Dose: 1,000 mg Documented By: Admin: 04/14/24 03:00 Dose: 1,000 mg Documented By: Admin: 04/13/24 17:35 Dose: 1,000 mg Documented By: Admin: 04/13/24 08:13 Dose: 1,000 mg Documented By: Admin: 04/12/24 13:32 Dose: 1,000 mg Documented By: Admin: 04/12/24 04:32 Dose: 1,000 mg Documented By: Admin: 04/11/24 08:00 Dose: 1,000 mg Documented By: Admin: 04/10/24 15:20 Dose: 1,000 mg Documented By: Admin: 04/09/24 03:24 Dose: 1,000 mg Documented By: Admin: 04/07/24 23:20 Dose: 1,000 mg Documented By: Admin: 04/07/24 00:23 Dose: 1,000 mg Documented By: Admin: 04/05/24 22:32 Dose: 1,000 mg Documented By: EUGENIA Albuterol (Albuterol Hfa 8 Gm Inhaler) 2 puffs INH Q4 PRN PRN Reason: shortness of breath or wheezin Stop: 04/14/24 20:33 Last Admin: 04/11/24 20:47 Dose: 2 puffs Documented By: Admin: 04/07/24 08:06 Dose: 2 puffs Documented By: Admin: 04/06/24 22:13 Dose: 2 puffs Documented By: Admin: 04/05/24 22:50 Dose: 2 puffs Documented By: Admin: 04/05/24 18:13 Dose: 2 puffs Documented By: Admin: 04/04/24 22:39 Dose: 2 puffs Documented By: Admin: 04/03/24 23:30 Dose: 2 puffs Documented By: Admin: 04/03/24 16:10 Dose: 2 puffs Documented By: Admin: 04/02/24 21:56 Dose: 2 puffs Documented By: Admin: 04/02/24 04:59 Dose: 2 puffs Documented By: Admin: 04/01/24 21:03 Dose: 2 puffs Documented By: Admin: 03/31/24 22:18 Dose: 2 puffs Documented By: Admin: 03/31/24 16:43 Dose: 2 puffs Documented By: Admin: 03/31/24 04:01 Dose: 2 puffs Documented By: Admin: 03/30/24 21:54 Dose: 2 puffs Documented By: Admin: 03/29/24 14:17 Dose: 2 puffs Documented By: EML(2) Admin: 03/29/24 05:05 Dose: 2 puffs Documented By: Admin: 03/29/24 00:01 Dose: 2 puffs Documented By: Admin: 03/28/24 19:37 Dose: 2 puffs Documented By: Admin: 03/27/24 23:22 Dose: 2 puffs Documented By: Admin: 03/27/24 18:32 Dose: 2 puffs Documented By: H Admin: 03/26/24 23:51 Dose: 2 puffs Documented By: Admin: 03/25/24 20:42 Dose: 2 puffs Documented By: ARPIT(2) Admin: 03/25/24 05:49 Dose: 2 puffs Documented By: Admin: 03/24/24 04:48 Dose: 2 puffs Documented By: Admin: 03/23/24 20:25 Dose: 2 puffs Documented By: Admin: 03/20/24 22:28 Dose: 2 puffs Documented By: Admin: 03/20/24 00:50 Dose: 2 puffs Documented By: Admin: 03/19/24 19:59 Dose: 2 puffs Documented By: Admin: 03/19/24 05:08 Dose: 2 puffs Documented By: Admin: 03/17/24 21:16 Dose: 2 puffs Documented By: JOLYNN Albuterol (Albut/Ipratrop 3mg/0.5mg Neb 3 Ml Vial) Confirm Administered Dose 3 ml .ROUTE .STK-MED ONE Stop: 03/17/24 09:17 Last Admin: 03/17/24 09:23 Dose: 3 ml Documented By: TARA(2) Albuterol (Albuterol 0.083% Nebu Soln 3 Ml Vial) 2.5 mg NEB QIDR JOSE; Protocol Stop: 05/08/24 09:54 Last Admin: 04/13/24 15:06 Dose: 2.5 mg Documented By: Admin: 04/13/24 10:50 Dose: 2.5 mg Documented By: [email or web address] Admin: 04/13/24 07:04 Dose: 2.5 mg Documented By: Admin: 04/12/24 20:01 Dose: 2.5 mg Documented By: Admin: 04/12/24 15:29 Dose: 2.5 mg Documented By: Admin: 04/12/24 11:09 Dose: 2.5 mg Documented By: Admin: 04/12/24 07:12 Dose: 2.5 mg Documented By: Admin: 04/11/24 20:09 Dose: 2.5 mg Documented By: Admin: 04/11/24 15:18 Dose: 2.5 mg Documented By: [id number] Admin: 04/11/24 10:48 Dose: 2.5 mg Documented By: [id number] Admin: 04/11/24 07:24 Dose: 2.5 mg Documented By: [id number] Admin: 04/10/24 19:57 Dose: 2.5 mg Documented By: ARPIT(2) Admin: 04/10/24 14:42 Dose: 2.5 mg Documented By: Admin: 04/10/24 11:03 Dose: 2.5 mg Documented By: [id number] Admin: 04/10/24 07:08 Dose: 2.5 mg Documented By: Admin: 04/09/24 20:08 Dose: 2.5 mg Documented By: Admin: 04/09/24 14:41 Dose: 2.5 mg Documented By: [id number] Admin: 04/09/24 11:23 Dose: 2.5 mg Documented By: [facility] Admin: 04/09/24 06:59 Dose: 2.5 mg Documented By: Admin: 04/08/24 19:49 Dose: 2.5 mg Documented By: Admin: 04/08/24 15:04 Dose: 2.5 mg Documented By: [id number] Admin: 04/08/24 10:42 Dose: Not Given Documented By: [id number] Admin: 04/08/24 10:35 Dose: 2.5 mg Documented By: [id number] Amiodarone HCl (Amiodarone 200 Mg Tab) 200 mg PO DAILY JOSE Stop: 04/15/24 08:59 Last Admin: 04/14/24 09:02 Dose: 200 mg Documented By: Admin: 04/13/24 08:53 Dose: 200 mg Documented By: Admin: 04/12/24 08:05 Dose: 200 mg Documented By: Admin: 04/11/24 08:00 Dose: 200 mg Documented By: Admin: 04/10/24 08:51 Dose: 200 mg Documented By: Admin: 04/09/24 08:34 Dose: 200 mg Documented By: Admin: 04/08/24 09:12 Dose: 200 mg Documented By: Admin: 04/07/24 08:12 Dose: 200 mg Documented By: Admin: 04/06/24 08:28 Dose: 200 mg Documented By: Admin: 04/05/24 09:04 Dose: 200 mg Documented By: Admin: 04/04/24 08:10 Dose: 200 mg Documented By: Admin: 04/03/24 07:30 Dose: 200 mg Documented By: Admin: 04/02/24 09:18 Dose: 200 mg Documented By: Admin: 04/01/24 09:19 Dose: 200 mg Documented By: Admin: 03/31/24 07:47 Dose: 200 mg Documented By: Admin: 03/30/24 08:24 Dose: 200 mg Documented By: Admin: 03/29/24 08:25 Dose: 200 mg Documented By: Admin: 03/28/24 08:14 Dose: 200 mg Documented By: Admin: 03/27/24 08:00 Dose: 200 mg Documented By: Admin: 03/26/24 08:19 Dose: 200 mg Documented By: Admin: 03/25/24 11:30 Dose: 200 mg Documented By: Admin: 03/24/24 08:27 Dose: 200 mg Documented By: Admin: 03/23/24 08:11 Dose: 200 mg Documented By: Admin: 03/22/24 08:01 Dose: 200 mg Documented By: Admin: 03/21/24 09:04 Dose: 200 mg Documented By: Admin: 03/20/24 10:27 Dose: 200 mg Documented By: Admin: 03/19/24 09:40 Dose: 200 mg Documented By: Admin: 03/18/24 07:24 Dose: 200 mg Documented By: Admin: 03/17/24 13:19 Dose: Not Given Documented By: Admin: 03/16/24 08:04 Dose: 200 mg Documented By: OAC Amlodipine Besylate (Amlodipine Besylate 5 Mg Tab) [facility] [place]: 04/15/24 08:59 Last Admin: 03/21/24 09:04 Dose: 2.5 mg Documented By: Admin: 03/20/24 10:27 Dose: 2.5 mg Documented By: Admin: 03/19/24 09:39 Dose: 2.5 mg Documented By: Admin: 03/18/24 07:24 Dose: 2.5 mg Documented By: Admin: 03/17/24 13:19 Dose: Not Given Documented By: Admin: 03/16/24 08:03 Dose: 2.5 mg Documented By: DYLAN Amlodipine Besylate (Amlodipine Besylate 5 Mg Tab) 5 mg PO NOW ONE Stop: 03/21/24 14:46 Last Admin: 03/21/24 15:58 Dose: 5 mg Documented By: ANJALI Amoxicillin/Clavulanate Potassium (Amoxicillin/Clavulanate 875 Mg Tab) 1 tab PO BIDM [facility]; Protocol Stop: 03/23/24 07:59 Last Admin: 03/16/24 08:03 Dose: 1 tab Documented By: DYLAN Atorvastatin Calcium (Atorvastatin 40 Mg Tab) 40 mg PO NOW STA Stop: 03/16/24 23:07 Last Admin: 03/16/24 23:21 Dose: 40 mg Documented By: LEODAN Bisacodyl (Bisacodyl 5 Mg Tabec) 5 mg PO NOW ONE Stop: 04/12/24 14:15 Last Admin: 04/12/24 15:16 Dose: 5 mg Documented By: ROYA Bisacodyl (Bisacodyl 5 Mg Tabec) 5 mg PO NOW ONE Stop: 04/13/24 08:32 Last Admin: 04/13/24 08:52 Dose: 5 mg Documented By: SHAUNA Bisacodyl (Bisacodyl 10 Mg Supp) 10 mg SC NOW STA Stop: 04/13/24 11:29 Last Admin: 04/13/24 12:58 Dose: 10 mg Documented By: SHAUNA Bumetanide (Bumetanide 1 Mg Tab) 3 mg PO DAILY [facility] Stop: 04/15/24 08:59 Last Admin: 03/16/24 08:03 Dose: 3 mg Documented By: DYLAN Buspirone HCl (Buspirone 5 Mg Tab) 10 mg PO [facility] Stop: 04/14/24 20:59 Last Admin: 04/13/24 20:33 Dose: 10 mg Documented By: Admin: 04/12/24 20:34 Dose: 10 mg Documented By: Admin: 04/11/24 20:46 Dose: 10 mg Documented By: Admin: 04/10/24 20:31 Dose: 10 mg Documented By: Admin: 04/09/24 20:51 Dose: 10 mg Documented By: Admin: 04/08/24 20:26 Dose: 10 mg Documented By: Admin: 04/07/24 21:34 Dose: 10 mg Documented By: Admin: 04/06/24 20:26 Dose: 10 mg Documented By: Admin: 04/05/24 20:39 Dose: 10 mg Documented By: Admin: 04/04/24 20:04 Dose: 10 mg Documented By: Admin: 04/03/24 21:30 Dose: 10 mg Documented By: Admin: 04/02/24 20:57 Dose: 10 mg Documented By: Admin: 04/01/24 20:27 Dose: 10 mg Documented By: Admin: 03/31/24 21:16 Dose: 10 mg Documented By: Admin: 03/30/24 20:35 Dose: 10 mg Documented By: Admin: 03/29/24 20:19 Dose: 10 mg Documented By: Admin: 03/28/24 21:38 Dose: 10 mg Documented By: Admin: 03/27/24 21:13 Dose: 10 mg Documented By: Admin: 03/26/24 20:09 Dose: 10 mg Documented By: Admin: 03/25/24 20:45 Dose: 10 mg Documented By: CRH(2) Admin: 03/24/24 20:25 Dose: 10 mg Documented By: Admin: 03/23/24 20:09 Dose: 10 mg Documented By: Admin: 03/22/24 21:01 Dose: 10 mg Documented By: Admin: 03/21/24 21:34 Dose: 10 mg Documented By: Admin: 03/20/24 21:18 Dose: 10 mg Documented By: Admin: 03/19/24 20:54 Dose: 10 mg Documented By: Admin: 03/18/24 20:13 Dose: 10 mg Documented By: KS(2) Admin: 03/17/24 21:35 Dose: 10 mg Documented By: Admin: 03/16/24 23:05 Dose: 10 mg Documented By: Admin: 03/15/24 21:54 Dose: 10 mg Documented By: KAYE Dexamethasone (Dexamethasone 4 Mg Tab) 8 mg PO DAILY@1400 JOSE Stop: 03/20/24 14:01 Last Admin: 03/20/24 13:45 Dose: 8 mg Documented By: Admin: 03/19/24 13:44 Dose: 8 mg Documented By: DTT Dexamethasone (Dexamethasone 4 Mg Tab) 8 mg PO DAILY@1145 [facility] Stop: 04/09/24 11:46 Last Admin: 04/09/24 11:48 Dose: 8 mg Documented By: Admin: 04/08/24 11:22 Dose: 8 mg Documented By: ENDY Diphenhydramine HCl (Diphenhydramine Capsule 25 Mg Cap) 25 mg PO NOW ONE Stop: 04/03/24 02:41 Last Admin: 04/03/24 03:44 Dose: Not Given Documented By: EUGENIA Diphenhydramine HCl (Diphenhydramine Capsule 25 Mg Cap) 25 mg PO ONE ONE Stop: 04/11/24 21:01 Last Admin: 04/11/24 22:30 Dose: 25 mg Documented By: ARPIT Docusate Sodium (Docusate Sodium 100 Mg Cap) 100 mg PO BID [facility] Stop: 04/28/24 20:59 Last Admin: 04/08/24 09:12 Dose: 100 mg Documented By: Admin: 04/07/24 21:34 Dose: 100 mg Documented By: Admin: 04/07/24 08:11 Dose: 100 mg Documented By: Admin: 04/06/24 20:26 Dose: 100 mg Documented By: Admin: 04/06/24 08:29 Dose: 100 mg Documented By: Admin: 04/05/24 20:38 Dose: 100 mg Documented By: Admin: 04/05/24 09:04 Dose: 100 mg Documented By: Admin: 04/04/24 20:07 Dose: 100 mg Documented By: Admin: 04/04/24 08:09 Dose: 100 mg Documented By: Admin: 04/03/24 21:29 Dose: 100 mg Documented By: Admin: 04/03/24 07:29 Dose: 100 mg Documented By: Admin: 04/02/24 20:57 Dose: 100 mg Documented By: Admin: 04/02/24 09:18 Dose: 100 mg Documented By: Admin: 04/01/24 20:24 Dose: 100 mg Documented By: Admin: 04/01/24 09:14 Dose: 100 mg Documented By: Admin: 03/31/24 21:16 Dose: 100 mg Documented By: Admin: 03/31/24 07:48 Dose: 100 mg Documented By: Admin: 03/30/24 20:35 Dose: 100 mg Documented By: Admin: 03/30/24 08:25 Dose: 100 mg Documented By: Admin: 03/29/24 20:19 Dose: 100 mg Documented By: HUMBERTO Docusate Sodium (Docusate Sodium 100 Mg Cap) 100 mg PO DAILY ONE Stop: 04/15/24 10:16 Last Admin: 04/15/24 10:53 Dose: 100 mg Documented By: BRANDEN Fentanyl Citrate (Fentanyl Citrate Pf 100 Mcg/2 Ml Vial) Confirm Administered Dose 100 mcg .ROUTE .STK-MED ONE Stop: 03/17/24 07:47 Last Admin: 03/17/24 09:25 Dose: Not Given Documented By: ROBERTO Fentanyl Citrate (Fentanyl Citrate Pf 100 Mcg/2 Ml Vial) Confirm Administered Dose 100 mcg .ROUTE .STK-MED ONE Stop: 03/17/24 08:14 Last Admin: 03/17/24 09:25 Dose: 100 mcg Documented By: ROBERTO Ferrous Sulfate (Ferrous Sulfate 325 Mg/7.4 Ml Udp) 325 mg PO QAM [facility] Stop: 04/21/24 08:59 Last Admin: 03/24/24 08:30 Dose: 325 mg Documented By: Admin: 03/23/24 08:11 Dose: 325 mg Documented By: Admin: 03/22/24 08:00 Dose: 325 mg Documented By: ANJALI Filgrastim (Filgrastim 300 Mcg/Ml Vial) 300 mcg SC DAILY@1600 [facility] Stop: 03/22/24 16:01 Last Admin: 03/22/24 17:13 Dose: 300 mcg Documented By: Admin: 03/21/24 17:08 Dose: 300 mcg Documented By: ANJALI Filgrastim (Filgrastim 480 Mcg/1.6 Ml Vial) 480 mcg SC ONE ONE Stop: 03/30/24 13:31 Last Admin: 03/30/24 15:24 Dose: 480 mcg Documented By: RANCHO Filgrastim (Filgrastim 480 Mcg/1.6 Ml Vial) 480 mcg SC Th@0915 ONE Stop: 03/31/24 09:16 Last Admin: 03/31/24 07:47 Dose: 480 mcg Documented By: GRISELDA Filgrastim (Filgrastim 480 Mcg/1.6 Ml Vial) 480 mcg SQ DAILY@1500 JOSE Stop: 04/11/24 15:01 Last Admin: 04/10/24 15:23 Dose: 480 mcg Documented By: CMV Fluticasone Propionate (Fluticasone Propionate Na Spr 16 Gm Btl) 1 sprays NA DAILY JOSE Stop: 05/03/24 08:59 Last Admin: 04/04/24 08:13 Dose: Not Given Documented By: Admin: 04/03/24 07:32 Dose: 1 sprays Documented By: ADÁN Fluticasone Propionate (Fluticasone Propionate Na Spr 16 Gm Btl) 1 sprays NA NOW STA Stop: 04/03/24 02:41 Last Admin: 04/03/24 03:16 Dose: 1 sprays Documented By: EUGENIA Furosemide (Furosemide 40 Mg/4 Ml Vial) 40 mg IV ONE ONE Stop: 04/01/24 08:05 Last Admin: 04/01/24 09:44 Dose: 40 mg Documented By: ADÁN Furosemide (Furosemide Inj 20 Mg/2 Ml Vial) 10 mg IV ONE ONE Stop: 04/06/24 12:35 Last Admin: 04/06/24 13:53 Dose: 10 mg Documented By: ARLETH Furosemide (Furosemide Inj 20 Mg/2 Ml Vial) 20 mg IV ONE ONE Stop: 04/06/24 15:59 Last Admin: 04/06/24 17:47 Dose: 20 mg Documented By: ARLETH Furosemide (Furosemide Inj 20 Mg/2 Ml Vial) 20 mg IV ONE ONE Stop: 04/11/24 16:09 Last Admin: 04/11/24 17:21 Dose: 20 mg Documented By: TARA Gabapentin (Gabapentin 300 Mg Cap) 300 mg PO BID JOSE Stop: 04/14/24 20:59 Last Admin: 04/08/24 09:11 Dose: 300 mg Documented By: Admin: 04/07/24 21:34 Dose: 300 mg Documented By: Admin: 04/07/24 08:11 Dose: 300 mg Documented By: Admin: 04/06/24 20:25 Dose: 300 mg Documented By: Admin: 04/06/24 08:29 Dose: 300 mg Documented By: Admin: 04/05/24 20:39 Dose: 300 mg Documented By: Admin: 04/05/24 09:04 Dose: 300 mg Documented By: Admin: 04/04/24 20:07 Dose: 300 mg Documented By: Admin: 04/04/24 08:09 Dose: 300 mg Documented By: Admin: 04/03/24 21:31 Dose: 300 mg Documented By: Admin: 04/03/24 07:29 Dose: 300 mg Documented By: Admin: 04/02/24 20:58 Dose: 300 mg Documented By: Admin: 04/02/24 09:19 Dose: 300 mg Documented By: Admin: 04/01/24 20:28 Dose: 300 mg Documented By: Admin: 04/01/24 09:19 Dose: 300 mg Documented By: Admin: 03/31/24 21:14 Dose: 300 mg Documented By: Admin: 03/31/24 07:47 Dose: 300 mg Documented By: Admin: 03/30/24 20:35 Dose: 300 mg Documented By: [email or web address] Admin: 03/30/24 08:25 Dose: 300 mg Documented By: Admin: 03/29/24 20:20 Dose: 300 mg Documented By: Admin: 03/29/24 08:27 Dose: 300 mg Documented By: Admin: 03/28/24 21:38 Dose: 300 mg Documented By: Admin: 03/28/24 08:13 Dose: 300 mg Documented By: Admin: 03/27/24 21:13 Dose: 300 mg Documented By: Admin: 03/27/24 08:00 Dose: 300 mg Documented By: Admin: 03/26/24 20:09 Dose: 300 mg Documented By: Admin: 03/26/24 08:18 Dose: 300 mg Documented By: Admin: 03/25/24 20:43 Dose: 300 mg Documented By: CRH(2) Admin: 03/25/24 09:19 Dose: 300 mg Documented By: Admin: 03/24/24 20:25 Dose: 300 mg Documented By: Admin: 03/24/24 08:29 Dose: 300 mg Documented By: Admin: 03/23/24 20:08 Dose: 300 mg Documented By: Admin: 03/23/24 08:10 Dose: 300 mg Documented By: Admin: 03/22/24 21:00 Dose: 300 mg Documented By: Admin: 03/22/24 08:00 Dose: 300 mg Documented By: Admin: 03/21/24 21:35 Dose: 300 mg Documented By: JCheri Admin: 03/21/24 09:04 Dose: 300 mg Documented By: Admin: 03/20/24 21:18 Dose: 300 mg Documented By: Admin: 03/20/24 10:27 Dose: 300 mg Documented By: Admin: 03/19/24 20:55 Dose: 300 mg Documented By: Admin: 03/19/24 09:39 Dose: 300 mg Documented By: Admin: 03/18/24 20:11 Dose: 300 mg Documented By: SHAUNA(2) Admin: 03/18/24 07:23 Dose: 300 mg Documented By: Admin: 03/17/24 21:35 Dose: 300 mg Documented By: Admin: 03/17/24 13:19 Dose: Not Given Documented By: Admin: 03/16/24 23:05 Dose: 300 mg Documented By: Admin: 03/16/24 08:03 Dose: 300 mg Documented By: Admin: 03/15/24 21:56 Dose: 300 mg Documented By: KAYE Hydromorphone HCl (Hydromorphone Inj 0.5 Mg/0.5 Ml Syr) 0.25 mg IV Q6H PRN PRN Reason: Severe Pain (Scale 7, 8, 9,10) Stop: 03/31/24 14:45 Last Admin: 03/22/24 19:43 Dose: 0.25 mg Documented By: Admin: 03/22/24 13:17 Dose: 0.5 mg Documented By: Admin: 03/21/24 17:11 Dose: 0.25 mg Documented By: Admin: 03/21/24 09:04 Dose: 0.25 mg Documented By: Admin: 03/18/24 07:45 Dose: 0.25 mg Documented By: RANJIT Hydromorphone HCl (Hydromorphone Inj 0.5 Mg/0.5 Ml Syr) 0.25 mg IV Q3H PRN PRN Reason: Pain, dyspnea Stop: 04/01/24 11:50 Last Admin: 04/01/24 04:56 Dose: 0.25 mg Documented By: Admin: 03/31/24 19:49 Dose: 0.25 mg Documented By: Admin: 03/31/24 13:46 Dose: 0.25 mg Documented By: Admin: 03/31/24 07:29 Dose: 0.25 mg Documented By: Admin: 03/31/24 03:55 Dose: 0.25 mg Documented By: Admin: 03/30/24 22:35 Dose: 0.25 mg Documented By: Admin: 03/25/24 21:58 Dose: 0.25 mg Documented By: EUGENIA(2) Admin: 03/21/24 21:31 Dose: 0.25 mg Documented By: Admin: 03/21/24 03:09 Dose: 0.25 mg Documented By: Admin: 03/20/24 21:27 Dose: 0.25 mg Documented By: Admin: 03/20/24 06:01 Dose: 0.25 mg Documented By: NAV Hydromorphone HCl (Hydromorphone Inj 0.5 Mg/0.5 Ml Syr) 0.25 mg IV NOW STA Stop: 03/31/24 15:49 Last Admin: 03/31/24 16:09 Dose: 0.25 mg Documented By: GRISELDA Hydromorphone HCl (Hydromorphone Inj 0.5 Mg/0.5 Ml Syr) 0.5 mg IV NOW STA Stop: 03/31/24 21:29 Last Admin: 03/31/24 21:56 Dose: 0.5 mg Documented By: TEETEE Hydromorphone HCl (Hydromorphone Inj 0.5 Mg/0.5 Ml Syr) 0.5 mg IV NOW STA Stop: 04/02/24 22:54 Last Admin: 04/02/24 23:02 Dose: Not Given Documented By: CRH Sodium Chloride (Nss) 1,000 mls @ 75 mls/hr IV .[id number] JOSE Stop: 04/14/24 20:33 Last Infusion: 03/17/24 00:30 Dose: Infused Documented By: Admin: 03/16/24 11:10 Dose: 75 mls/hr Documented By: Infusion: 03/16/24 11:10 Dose: Infused Documented By: Admin: 03/15/24 21:58 Dose: 75 mls/hr Documented By: KAYE Potassium Chloride (K Floyd / Wtr) 10 meq in 100 mls @ 100 mls/hr IV Q1H JOSE Stop: 03/16/24 01:29 Last Infusion: 03/16/24 04:00 Dose: Infused Documented By: AURORA(2) Admin: 03/16/24 02:39 Dose: 100 mls/hr Documented By: AURORA(2) Infusion: 03/16/24 02:39 Dose: Infused Documented By: AURORA(2) Admin: 03/16/24 01:00 Dose: 100 mls/hr Documented By: AURORA(2) Infusion: 03/16/24 00:59 Dose: Infused Documented By: AURORA(2) Admin: 03/15/24 23:39 Dose: 100 mls/hr Documented By: AURORA(2) Infusion: 03/15/24 23:19 Dose: Infused Documented By: NAVJOT(2) Admin: 03/15/24 21:58 Dose: 100 mls/hr Documented By: KAYE Potassium Chloride (K Floyd / Wtr) 10 meq in 100 mls @ 100 mls/hr IV Q1H JOSE Stop: 03/16/24 21:29 Last Infusion: 03/16/24 22:54 Dose: Infused Documented By: Admin: 03/16/24 21:54 Dose: 100 mls/hr Documented By: Infusion: 03/16/24 21:42 Dose: Infused Documented By: Admin: 03/16/24 20:42 Dose: 100 mls/hr Documented By: LEODAN Promethazine HCl 12.5 mg/ (Sodium Chloride) 50.5 mls @ 202 mls/hr IV NOW STA Stop: 03/16/24 21:13 Last Infusion: 03/16/24 21:31 Dose: Infused Documented By: Admin: 03/16/24 21:16 Dose: 202 mls/hr Documented By: LEODAN Sodium Chloride (Nss) 1,000 mls @ 75 mls/hr IV .[id number] JOSE Stop: 03/17/24 12:34 Last Infusion: 03/17/24 12:42 Dose: Infused Documented By: Admin: 03/16/24 23:22 Dose: 75 mls/hr Documented By: LEODAN Lorazepam 0.5 mg/ Syringe 0.5 mls @ 2 mls/min IV NOW STA Stop: 03/17/24 09:16 Last Admin: 03/17/24 09:23 Dose: Not Given Documented By: ROBERTO Palonosetron 0.25 mg/ Syringe 5 mls @ 10 mls/min IV DAILY JOSE Stop: 03/19/24 09:01 Last Admin: 03/19/24 09:39 Dose: 10 mls/min Documented By: ANJALI Palonosetron 0.25 mg/ Syringe 5 mls @ 10 mls/min IV DAILY JOSE Stop: 04/20/24 08:59 Last Admin: 03/28/24 09:08 Dose: 10 mls/min Documented By: Admin: 03/27/24 09:22 Dose: 10 mls/min Documented By: Admin: 03/26/24 08:24 Dose: 10 mls/min Documented By: Admin: 03/25/24 11:30 Dose: 10 mls/min Documented By: Admin: 03/24/24 08:37 Dose: 10 mls/min Documented By: Admin: 03/23/24 08:17 Dose: 10 mls/min Documented By: Admin: 03/22/24 08:07 Dose: 10 mls/min Documented By: Admin: 03/21/24 10:03 Dose: 10 mls/min Documented By: ANJALI Promethazine HCl 6.25 mg/ (Sodium Chloride) 50.25 mls @ 201 mls/hr IV Q6H PRN PRN Reason: Nausea And Vomiting Stop: 04/17/24 13:51 Last Infusion: 03/20/24 07:27 Dose: Infused Documented By: Admin: 03/20/24 07:09 Dose: 201 mls/hr Documented By: Infusion: 03/19/24 17:19 Dose: Infused Documented By: Admin: 03/19/24 16:14 Dose: 201 mls/hr Documented By: ANJALI Carboplatin 350 mg/ Sodium (Chloride) 285 mls @ 570 mls/hr IV TODAY@1500 JOSE; Protocol Stop: 03/18/24 15:29 Last Infusion: 03/18/24 15:56 Dose: Infused Documented By: MARY Co-signed By: RANJIT Admin: 03/18/24 15:09 Dose: 570 mls/hr Documented By: MARY Co-signed By: GREG Etoposide 140 mg/ Sodium (Chloride) 507 mls @ 507 mls/hr IV TODAY@1530 JOSE; Protocol Stop: 03/18/24 16:29 Last Infusion: 03/18/24 17:26 Dose: Infused Documented By: ELMER Co-signed By: GELA Admin: 03/18/24 15:58 Dose: 507 mls/hr Documented By: MARY Co-signed By: RANJIT Etoposide 140 mg/ Sodium (Chloride) 507 mls @ 507 mls/hr IV DAILY@1430 JOSE; Protocol Stop: 03/20/24 15:29 Last Infusion: 03/20/24 15:34 Dose: Infused Documented By: JONATHAN Co-signed By: ROSALVA Admin: 03/20/24 14:30 Dose: 507 mls/hr Documented By: ROSALVA Co-signed By: JONATHAN Infusion: 03/19/24 15:30 Dose: Infused Documented By: ROSALVA Co-signed By: JONATHAN Admin: 03/19/24 14:19 Dose: 507 mls/hr Documented By: ROSALVA Co-signed By: JONATHAN Palonosetron 0.25 mg/ Syringe 5 mls @ 10 mls/min IV TODAY@1400 JOSE Stop: 03/20/24 14:01 Last Admin: 03/20/24 13:45 Dose: 10 mls/min Documented By: DTT Sodium Chloride (1/2 Nss) 1,000 mls @ 60 mls/hr IV .[id number] ONE Stop: 03/27/24 13:29 Last Infusion: 03/27/24 15:29 Dose: Infused Documented By: Admin: 03/26/24 21:42 Dose: 60 mls/hr Documented By: MMG Magnesium Sulfate/Dextrose (Magnesium Sulfate / D5w) 1 gm in 100 mls @ 50 mls/hr IV ONE ONE Stop: 03/29/24 08:36 Last Infusion: 03/29/24 10:46 Dose: Infused Documented By: Admin: 03/29/24 08:46 Dose: 50 mls/hr Documented By: RRD Albumin Human (Albumin 25%) 12.5 gm in 50 mls @ 50 mls/hr IV ONE ONE Stop: 03/29/24 07:36 Last Infusion: 03/29/24 07:49 Dose: Infused Documented By: Admin: 03/29/24 06:49 Dose: 50 mls/hr Documented By: HUMBERTO Dexamethasone 12 mg/Palonosetron 0.25 mg/ Sodium Chloride 58 mls @ 232 mls/hr IV TODAY@1000 ONE Stop: 04/07/24 10:14 Last Infusion: 04/07/24 11:28 Dose: Infused Documented By: Admin: 04/07/24 10:46 Dose: 232 mls/hr Documented By: ANDREI Fosaprepitant 150 mg/ Sodium (Chloride) 150 mls @ 450 mls/hr IV TODAY@1015 ONE Stop: 04/07/24 10:34 Last Infusion: 04/07/24 14:56 Dose: Infused Documented By: Admin: 04/07/24 12:21 Dose: 450 mls/hr Documented By: MARY Carboplatin 350 mg/ Sodium (Chloride) 285 mls @ 570 mls/hr IV TODAY@1135 JOSE; Protocol Stop: 04/07/24 12:04 Last Infusion: 04/07/24 14:56 Dose: Infused Documented By: MARY Co-signed By: SHAR Admin: 04/07/24 13:45 Dose: 570 mls/hr Documented By: MARY Co-signed By: MARIANNA Etoposide 140 mg/ Sodium (Chloride) 507 mls @ 507 mls/hr IV TODAY@1215 JOSE; Protocol Stop: 04/09/24 13:14 Last Infusion: 04/09/24 13:53 Dose: Infused Documented By: ROSALVA Co-signed By: GELA Admin: 04/09/24 12:28 Dose: 500 mls/hr Documented By: ROSALVA Co-signed By: GELA Infusion: 04/08/24 13:19 Dose: Infused Documented By: GREG Co-signed By: SHAR Admin: 04/08/24 11:57 Dose: 500 mls/hr Documented By: ANDRE Co-signed By: GREG Infusion: 04/07/24 16:06 Dose: Infused Documented By: MARY Co-signed By: SHAR Infusion: 04/07/24 14:56 Dose: 500 mls/hr Documented By: MARY Co-signed By: SHAR Admin: 04/07/24 14:51 Dose: 507 mls/hr Documented By: MARY Co-signed By: SHAR Palonosetron 0.25 mg/ Syringe 5 mls @ 10 mls/min IV TODAY@1145 [facility] Stop: 04/09/24 11:46 Last Admin: 04/09/24 11:48 Dose: 10 mls/min Documented By: CMV Vancomycin HCl 1,250 mg/ (Sodium Chloride) 275 mls @ 200 mls/hr IV NOW ONE Stop: 04/11/24 11:52 Last Infusion: 04/11/24 12:38 Dose: Infused Documented By: Admin: 04/11/24 11:15 Dose: 200 mls/hr Documented By: LMUmesh Ioversol (Optiray 320 125ml) 118 ml IV ONCE ONE Stop: 03/15/24 15:54 Last Admin: 03/15/24 15:53 Dose: 118 ml Documented By: SUZAN Ioversol (Optiray 320 100ml) 89 ml IV ONCE ONE Stop: 03/16/24 15:44 Last Admin: 03/16/24 15:43 Dose: 89 ml Documented By: SUZAN Ioversol (Optiray 320 125ml) 116 ml IV ONCE ONE Stop: 03/16/24 22:17 Last Admin: 03/16/24 22:16 Dose: 116 ml Documented By: MONI Ketorolac Tromethamine (Ketorolac Tromethamine 15 Mg/Ml Vial) 10 mg IV NOW ONE Stop: 03/26/24 22:39 Last Admin: 03/27/24 01:38 Dose: Not Given Documented By: NAVJOT Ketorolac Tromethamine (Ketorolac Tromethamine 15 Mg/Ml Vial) 15 mg IV NOW ONE Stop: 04/01/24 20:37 Last Admin: 04/01/24 20:55 Dose: 15 mg Documented By: TEETEE Levofloxacin (Levofloxacin 750 Mg Tab) 750 mg PO Q2D@1100 JOSE; Protocol Stop: 03/22/24 21:59 Last Admin: 03/15/24 22:14 Dose: 750 mg Documented By: KAYE Loratadine (Loratadine 10 Mg Tab) 10 mg PO NOW ONE Stop: 03/26/24 20:36 Last Admin: 03/26/24 21:42 Dose: 10 mg Documented By: NAVJOT Loratadine (Loratadine 10 Mg Tab) 10 mg PO [facility] Stop: 04/27/24 22:04 Last Admin: 03/28/24 22:58 Dose: 10 mg Documented By: HUMBERTO Lorazepam (Lorazepam 1 Mg/1 Ml Syr Ed Inj Use) 0.5 mg IV ONE STA Stop: 03/15/24 18:12 Last Admin: 03/15/24 18:15 Dose: 0.5 mg Documented By: KAYE Lorazepam (Lorazepam 0.5 Mg Tab) 0.5 mg PO Q6 PRN PRN Reason: Anxiety Stop: 04/14/24 20:33 Last Admin: 04/14/24 13:42 Dose: 0.5 mg Documented By: Admin: 04/13/24 02:01 Dose: 0.5 mg Documented By: Admin: 04/11/24 13:40 Dose: 0.5 mg Documented By: Admin: 04/11/24 02:12 Dose: 0.5 mg Documented By: Admin: 03/20/24 00:31 Dose: 0.5 mg Documented By: Admin: 03/19/24 04:48 Dose: 0.5 mg Documented By: SHAUNA(2) Admin: 03/18/24 21:15 Dose: 0.5 mg Documented By: SHAUNA(2) Admin: 03/18/24 12:47 Dose: 0.5 mg Documented By: Admin: 03/18/24 03:32 Dose: 0.5 mg Documented By: NAV Lorazepam (Lorazepam 1 Mg/1 Ml Syr Ed Inj Use) Confirm Administered Dose 1 mg .ROUTE .STK-MED ONE Stop: 03/17/24 09:20 Last Admin: 03/17/24 09:23 Dose: 1 mg Documented By: ROBERTO Losartan Potassium (Losartan Potassium 50 Mg Tab) 100 mg PO HS JOSE Stop: 04/14/24 20:59 Last Admin: 04/06/24 20:27 Dose: 100 mg Documented By: Admin: 04/05/24 20:38 Dose: 100 mg Documented By: Admin: 04/04/24 20:04 Dose: 100 mg Documented By: Admin: 04/03/24 21:32 Dose: 100 mg Documented By: Admin: 04/02/24 20:58 Dose: 100 mg Documented By: Admin: 04/01/24 20:27 Dose: 100 mg Documented By: Admin: 03/31/24 21:16 Dose: 100 mg Documented By: Admin: 03/30/24 20:35 Dose: 100 mg Documented By: JPUmesh Admin: 03/29/24 20:19 Dose: 100 mg Documented By: Admin: 03/28/24 21:38 Dose: 100 mg Documented By: Admin: 03/27/24 21:13 Dose: 100 mg Documented By: Admin: 03/26/24 20:09 Dose: 100 mg Documented By: Admin: 03/25/24 20:44 Dose: 100 mg Documented By: CRH(2) Admin: 03/24/24 20:25 Dose: 100 mg Documented By: Admin: 03/23/24 20:11 Dose: 100 mg Documented By: Admin: 03/22/24 21:02 Dose: 100 mg Documented By: Admin: 03/21/24 21:36 Dose: 100 mg Documented By: Admin: 03/20/24 21:19 Dose: 100 mg Documented By: Admin: 03/19/24 20:54 Dose: 100 mg Documented By: Admin: 03/18/24 20:11 Dose: 100 mg Documented By: KS(2) Admin: 03/17/24 21:36 Dose: 100 mg Documented By: Admin: 03/16/24 23:06 Dose: 100 mg Documented By: Admin: 03/15/24 21:55 Dose: 100 mg Documented By: KAYE Magnesium Hydroxide (Magnesium Hydroxide Susp 30 Ml Udc) 30 ml PO Q12H PRN PRN Reason: Constipation Stop: 04/14/24 20:33 Last Admin: 04/12/24 22:14 Dose: 30 ml Documented By: Admin: 04/12/24 08:06 Dose: 30 ml Documented By: Admin: 04/11/24 22:30 Dose: 30 ml Documented By: Admin: 04/10/24 20:30 Dose: 30 ml Documented By: Admin: 04/09/24 20:51 Dose: 30 ml Documented By: Admin: 04/08/24 20:26 Dose: 30 ml Documented By: Admin: 04/06/24 18:47 Dose: 30 ml Documented By: Admin: 04/02/24 22:32 Dose: 30 ml Documented By: Admin: 03/29/24 20:55 Dose: 30 ml Documented By: HUMBERTO Melatonin (Melatonin 3 Mg Tab) 3 mg PO HS JOSE Stop: 05/03/24 20:59 Last Admin: 04/07/24 21:35 Dose: Not Given Documented By: Admin: 04/06/24 21:54 Dose: Not Given Documented By: Admin: 04/05/24 20:38 Dose: 3 mg Documented By: Admin: 04/04/24 21:59 Dose: Not Given Documented By: Admin: 04/03/24 21:40 Dose: 3 mg Documented By: EUGENIA Metoprolol Tartrate (Metoprolol Tartrate 50 Mg Tab) 50 mg PO BID JOSE Stop: 04/14/24 20:59 Last Admin: 04/14/24 09:03 Dose: 50 mg Documented By: Admin: 04/13/24 20:35 Dose: 50 mg Documented By: Admin: 04/13/24 08:52 Dose: 50 mg Documented By: Admin: 04/12/24 20:34 Dose: 50 mg Documented By: Admin: 04/12/24 08:06 Dose: 50 mg Documented By: Admin: 04/11/24 20:46 Dose: 50 mg Documented By: Admin: 04/11/24 08:02 Dose: 50 mg Documented By: Admin: 04/10/24 20:31 Dose: 50 mg Documented By: Admin: 04/10/24 08:51 Dose: 50 mg Documented By: Admin: 04/09/24 20:50 Dose: 50 mg Documented By: Admin: 04/09/24 08:33 Dose: 50 mg Documented By: Admin: 04/08/24 20:26 Dose: 50 mg Documented By: Admin: 04/08/24 09:11 Dose: 50 mg Documented By: Admin: 04/07/24 21:33 Dose: 50 mg Documented By: Admin: 04/07/24 08:11 Dose: 50 mg Documented By: Admin: 04/06/24 20:26 Dose: 50 mg Documented By: Admin: 04/06/24 08:29 Dose: 50 mg Documented By: Admin: 04/05/24 20:38 Dose: 50 mg Documented By: Admin: 04/05/24 09:05 Dose: 50 mg Documented By: Admin: 04/04/24 20:06 Dose: 50 mg Documented By: Admin: 04/04/24 08:09 Dose: 50 mg Documented By: Admin: 04/03/24 21:33 Dose: 50 mg Documented By: Admin: 04/03/24 07:39 Dose: 50 mg Documented By: Admin: 04/02/24 21:00 Dose: 50 mg Documented By: Admin: 04/02/24 09:25 Dose: 50 mg Documented By: Admin: 04/01/24 20:26 Dose: 50 mg Documented By: Admin: 04/01/24 09:19 Dose: 50 mg Documented By: Admin: 03/31/24 21:15 Dose: 50 mg Documented By: CWFestus Admin: 03/31/24 07:47 Dose: 50 mg Documented By: Admin: 03/30/24 20:35 Dose: 50 mg Documented By: JPUmesh Admin: 03/30/24 08:25 Dose: 50 mg Documented By: Admin: 03/29/24 20:19 Dose: 50 mg Documented By: JPUmesh Admin: 03/29/24 08:27 Dose: 50 mg Documented By: Admin: 03/28/24 21:38 Dose: 50 mg Documented By: Admin: 03/28/24 08:14 Dose: 50 mg Documented By: Admin: 03/27/24 21:13 Dose: 50 mg Documented By: Admin: 03/27/24 07:59 Dose: 50 mg Documented By: Admin: 03/26/24 20:10 Dose: 50 mg Documented By: Admin: 03/26/24 08:18 Dose: 50 mg Documented By: Admin: 03/25/24 20:45 Dose: 50 mg Documented By: CRH(2) Admin: 03/25/24 09:19 Dose: 50 mg Documented By: Admin: 03/24/24 20:24 Dose: 50 mg Documented By: Admin: 03/24/24 08:29 Dose: 50 mg Documented By: Admin: 03/23/24 20:07 Dose: 50 mg Documented By: Admin: 03/23/24 08:11 Dose: 50 mg Documented By: Admin: 03/22/24 21:02 Dose: 50 mg Documented By: Admin: 03/22/24 08:01 Dose: 50 mg Documented By: Admin: 03/21/24 21:36 Dose: 50 mg Documented By: Admin: 03/21/24 09:04 Dose: 50 mg Documented By: Admin: 03/20/24 21:19 Dose: 50 mg Documented By: Admin: 03/20/24 10:27 Dose: 50 mg Documented By: Admin: 03/19/24 20:57 Dose: 50 mg Documented By: Admin: 03/19/24 09:40 Dose: 50 mg Documented By: Admin: 03/18/24 20:11 Dose: 50 mg Documented By: SHAUNA(2) Admin: 03/18/24 07:23 Dose: 50 mg Documented By: Admin: 03/17/24 21:34 Dose: 50 mg Documented By: Admin: 03/17/24 13:19 Dose: Not Given Documented By: Admin: 03/16/24 23:06 Dose: 50 mg Documented By: Admin: 03/16/24 08:03 Dose: 50 mg Documented By: Admin: 03/15/24 21:55 Dose: 50 mg Documented By: KAYE Midazolam HCl (Midazolam Hcl 5 Mg/Ml 1 Ml Vial) Confirm Administered Dose 5 mg .ROUTE .STK-MED ONE Stop: 03/17/24 07:47 Last Increment: 03/17/24 09:25 Dose: 4 mg Documented By: ROBERTO Olanzapine (Olanzapine Zydis 10 Mg Orally Dis. Tab) [facility] [place]: 04/19/24 11:44 Last Admin: 03/21/24 09:04 Dose: 10 mg Documented By: Admin: 03/20/24 11:59 Dose: 10 mg Documented By: ANJALI Olanzapine (Olanzapine Zydis 5 Mg Orally Dis. Tab) 2.5 mg PO HS [facility] Stop: 03/24/24 21:01 Last Admin: 03/24/24 20:25 Dose: 2.5 mg Documented By: Admin: 03/23/24 20:10 Dose: 2.5 mg Documented By: Admin: 03/22/24 21:03 Dose: 2.5 mg Documented By: Admin: 03/21/24 21:36 Dose: 2.5 mg Documented By: JULISA Ondansetron HCl (Ondansetron Inj 2 Mg/Ml 2 Ml Vial) 4 mg IV Q6H PRN PRN Reason: Nausea Stop: 04/14/24 20:33 Last Admin: 03/18/24 08:58 Dose: 4 mg Documented By: Admin: 03/18/24 07:23 Dose: 4 mg Documented By: Admin: 03/17/24 19:34 Dose: 4 mg Documented By: Admin: 03/16/24 17:46 Dose: 4 mg Documented By: ЮЛИЯ Admin: 03/15/24 22:54 Dose: 4 mg Documented By: NAVJOT(2) Oxycodone HCl (Oxycodone Hcl Ir 5 Mg Tab (Immediate Release)) 5 mg PO Q4 PRN PRN Reason: Pain Stop: 03/29/24 20:33 Last Admin: 03/27/24 21:14 Dose: 5 mg Documented By: Admin: 03/24/24 00:42 Dose: 5 mg Documented By: Admin: 03/23/24 20:06 Dose: 5 mg Documented By: Admin: 03/16/24 15:56 Dose: 5 mg Documented By: ЮЛИЯ Oxycodone HCl (Oxycodone Hcl Ir 5 Mg Tab (Immediate Release)) 5 mg PO NOW STA Stop: 04/11/24 11:12 Last Admin: 04/11/24 11:20 Dose: 5 mg Documented By: TARA Oxycodone HCl (Oxycodone Hcl Ir 5 Mg Tab (Immediate Release)) 5 mg PO TODAY@1200 JOSE Stop: 04/12/24 18:00 Last Admin: 04/12/24 12:30 Dose: 5 mg Documented By: ROYA Oxycodone HCl (Oxycodone Hcl Ir 5 Mg Tab (Immediate Release)) 5 mg PO NOW STA Stop: 04/12/24 15:17 Last Admin: 04/14/24 07:19 Dose: Not Given Documented By: BRANDEN Polyethylene Glycol (Polyethylene (Miralax) 17 Gm Pack) 17 gm PO DAILY ONE Stop: 03/27/24 10:17 Last Admin: 03/27/24 13:49 Dose: 17 gm Documented By: CF Polyethylene Glycol (Polyethylene (Miralax) 17 Gm Pack) 17 gm PO DAILY JOSE Stop: 05/08/24 09:59 Last Admin: 04/08/24 11:23 Dose: Not Given Documented By: CMV Polyethylene Glycol (Polyethylene (Miralax) 17 Gm Pack) 17 gm PO HS JOSE Stop: 05/08/24 20:59 Last Admin: 04/14/24 18:57 Dose: Not Given Documented By: Admin: 04/13/24 20:29 Dose: Not Given Documented By: Admin: 04/12/24 20:35 Dose: Not Given Documented By: Admin: 04/11/24 20:50 Dose: Not Given Documented By: Admin: 04/10/24 20:31 Dose: Not Given Documented By: Admin: 04/09/24 20:51 Dose: Not Given Documented By: Admin: 04/08/24 20:27 Dose: Not Given Documented By: MJUmesh Polyethylene Glycol (Polyethylene (Miralax) 17 Gm Pack) 17 gm PO DAILY JOSE Stop: 05/12/24 08:59 Last Admin: 04/15/24 10:10 Dose: Not Given Documented By: Admin: 04/14/24 09:00 Dose: Not Given Documented By: Admin: 04/13/24 08:52 Dose: Not Given Documented By: Admin: 04/12/24 08:10 Dose: Not Given Documented By: RRD Potassium Chloride (Potassium Chloride Crtab 20 Meq Tabcr) 40 meq PO Q6 JOSE Stop: 03/16/24 18:01 Last Admin: 03/16/24 17:11 Dose: 40 meq Documented By: Admin: 03/16/24 13:20 Dose: 40 meq Documented By: Admin: 03/16/24 06:35 Dose: Not Given Documented By: KMS(2) Admin: 03/15/24 23:37 Dose: 40 meq Documented By: KMS(2) Potassium Chloride (Potassium Chloride Crtab 20 Meq Tabcr) 40 meq PO NOW STA Stop: 03/23/24 10:11 Last Admin: 03/23/24 12:42 Dose: 40 meq Documented By: KKS Potassium Chloride (Potassium Chloride Crtab 20 Meq Tabcr) 40 meq PO NOW STA Stop: 03/28/24 08:26 Last Admin: 03/28/24 09:07 Dose: 40 meq Documented By: Potassium Chloride (Potassium Chloride Pwd 20 Meq Pack) 40 meq PO NOW STA Stop: 03/29/24 06:43 Last Admin: 03/29/24 08:22 Dose: 40 meq Documented By: ROYA Potassium Chloride (Potassium Chloride Crtab 20 Meq Tabcr) 40 meq PO NOW STA Stop: 03/29/24 12:19 Last Admin: 03/29/24 13:04 Dose: 40 meq Documented By: ROYA Potassium Chloride (Potassium Chloride Crtab 20 Meq Tabcr) 40 meq PO NOW STA Stop: 04/02/24 14:39 Last Admin: 04/02/24 14:51 Dose: 40 meq Documented By: ADÁN Potassium Chloride (Potassium Chloride Crtab 20 Meq Tabcr) 40 meq PO NOW STA Stop: 04/07/24 17:26 Last Admin: 04/07/24 18:29 Dose: 40 meq Documented By: ANDREI Senna/Docusate Sodium (Docusate Sodium/Senna 50/8.6mg Tab) 1 tab PO BID JOSE Stop: 05/08/24 20:59 Last Admin: 04/15/24 10:09 Dose: Not Given Documented By: Admin: 04/14/24 18:57 Dose: Not Given Documented By: Admin: 04/14/24 08:58 Dose: Not Given Documented By: Admin: 04/13/24 20:33 Dose: 1 tab Documented By: Admin: 04/13/24 08:53 Dose: 1 tab Documented By: Admin: 04/12/24 20:34 Dose: 1 tab Documented By: Admin: 04/12/24 08:06 Dose: 1 tab Documented By: Admin: 04/11/24 20:46 Dose: 1 tab Documented By: Admin: 04/11/24 08:02 Dose: 1 tab Documented By: Admin: 04/10/24 20:31 Dose: 1 tab Documented By: Admin: 04/10/24 08:52 Dose: 1 tab Documented By: Admin: 04/09/24 20:51 Dose: 1 tab Documented By: Admin: 04/09/24 08:33 Dose: 1 tab Documented By: Admin: 04/08/24 20:26 Dose: 1 tab Documented By: MJM Sodium Chloride (Sodium Chlor 7% 4 Ml Neb) 4 ml NEB BIDR JOSE Stop: 05/11/24 18:59 Last Admin: 04/13/24 07:04 Dose: 4 ml Documented By: Admin: 04/12/24 20:01 Dose: 4 ml Documented By: Admin: 04/12/24 07:12 Dose: 4 ml Documented By: Admin: 04/11/24 20:09 Dose: 4 ml Documented By: LISY Tramadol HCl (Tramadol Hcl 50 Mg Tablet) 50 mg PO NOW STA Stop: 04/02/24 23:13 Last Admin: 04/03/24 00:00 Dose: Not Given Documented By: EUGENIA Tramadol HCl (Tramadol Hcl 50 Mg Tablet) 50 mg PO NOW STA Stop: 04/03/24 02:40 Last Admin: 04/03/24 02:56 Dose: 50 mg Documented By: EUGENIA
[2024-04-15] MEDS: GABAPENTIN 600 MG TAB PO SCH (13:23)
--- NOTE | 2024-04-15 19:29 | Communication Note ---
Date of Service: April 15, 2024 Patient's son, Timur, wishes for daily updates --> #[phone] MUST MAKE SURE HER SON IS NOTIFIED ON A DAILY BASIS - You can call him at any time throughout the day, he will be available. He wishes to speak with a provider tomorrow in-person. He will be here around 2- 3pm according to our conversation tonight. Dr. Gutierrez has been made aware.
[2024-04-15] MEDS: busPIRone 5 MG TAB PO SCH (19:47)
[2024-04-16] MEDS: HYDROmorphone INJ 0.5 MG/0.5 ML SYR IV PRN ×2 (08:44→11:38)
[2024-04-16] MEDS ORDERED: AMIODARONE 200 MG TAB PO SCH (09:00)
[2024-04-16] MEDS: AMIODARONE 200 MG TAB PO SCH (09:26)
--- NOTE | 2024-04-16 14:49 | Hospitalist Progress Note ---
Date of Service April 16, 2024 Assessment & Plan (1) Suspected malignant neoplasm of lung: (2) Acute kidney injury: (3) Lymphadenopathy, mediastinal: (4) Paroxysmal atrial fibrillation: (5) Hypokalemia: (6) Mild right ventricular systolic dysfunction: Plan Sheri Camacho is an 83-year-old F with PMHx of HFpEF, A-fib, thoracic aortic aneurysm, HTN, osteoporosis, inflamed seborrheic keratosis, major depressive disorder, tobacco use disorder, aortic valve replacement with bioprosthetic valve who presented to the ED with acute hypoxemic respiratory failure due to suspected lung malignancy and concern for metastatic disease. 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 Cardiomegaly with pulmonary vascular congestion. Left basilar opacity. * CTA chest: No PE. Large right hilar/upper lobe mass measuring 10 x 8 cm highly suspicious for primary bronchogenic malignancy. Right anterior diaphragmatic lymphadenopathy representing metastatic disease. 2.1 cm left upper lobe nodule abutting the mediastinum likely representing metastatic disease. Small right pleural effusion suggestive of malignant pleural effusion. * CTAP: Negative for metastatic disease. 1.9 cm left adrenal nodule which was likely present on CT of September 25, 2022. Small right pleural effusion. * CT head and CTA head/neck: No acute findings. BioFire was NEGATIVE S/P bronchoscopy 03/17/24 with worsening respiratory failure requiring BiPAP. Patient was weaned off of BiPAP and now on oxygen mask. --> Currently 95% SpO2 on 3L. Heme/Onc Evaluation - S/P Cycle 1 of carbo/etoposide (03/18) [carboplatin day 1, etoposide day 1-3]. Completed cycle 2 of chemotherapy treatment 04/07 - 04/09 S/P Neupogen 04/10 According to the regimen implemented by Heme/Onc, patient should be set to under cycle 3 of chemotherapy ~04/28. Patient to have Mediport placed on Thursday (04/18) with General Surgery per Dr. Lyle's recommendation. --> Holding Eliquis starting TOMORROW AM (04/15); will start her on SQ heparin tomorrow -Need to have patient NPO at midnight on Thursday (04/17); will need to stop SQ heparin Thursday (04/17) at midnight per general surgery - all orders placed. on 04/11; Patient reported feelin ill. WBC 76k, urine, blood cultures, lactic acid obtained Chest CT: Cardiomegaly and emphysema. 2. A large right upper lobe pa ramediastinal mass lesion with mediastinal indication a significantly decreased in size as compared to 03/15/2024. Metastatic right cardiophrenic lymphadenopathy has also decreased from previous. 3. Small right and trace left pleural effusions. 4. Patchy airspace opacities in the right lower lobe are nonspecific and may be on an infectious/inflammatory basis. Correlate clinically. Attention at follow-up will be required. 5. An 11 mm left lower lobe nodular opacity is new from previous and may also be inflammatory. Attention at follow-up will be required. 6. A 2.2 cm spiculated lesion in the paramediastinal left upper lobe is unchanged. This remains highly suspicious for neoplasm. Empirically covering w/ IV cefepime and Flagyl--> finished 5 day course. Blood culture shows NGTD Urine culture w/ 3 types of organisms present, all low counts probably skin indio Left Arm Pain (04/15) Pt notes significant L arm pain this morning States pain 2/2 blood draws, requesting pain medication Venous duplex neg CT arm pending Continue on dilaudid and oxycodone Pleural Effusions: Acute Admitting imaging: CXR with asymmetric right hilar mass like enlargement. Cardiomegaly with pulmonary vascular congestion. Left basilar opacity. Repeat CXR on 03/31 showed pulmonary vascular congestion, suspected atelectasis Pt now weaned to 3L, was given IV Lasix 40 mg on 04/01 and 04/02 04/06 CXR: Cardiomegaly with pulmonary vascular congestion and unchanged right pleural effusion She was seen and evaluated by Pulm who feels hypoxia in setting of compressive atelectasis due to mass, pleural effusions minimal Takes Bumex twice weekly at home Continue to monitor I&Os Patient does have R>L LE edema give history of history of ankle fractures Was on scheduled nebs, pt is not fond of breathing treatments Switched albuterol nebs to PRN, discontinued hypertonic nebs per pt's request Remain off home diuretic, will continue to hold given softer BPs SVC Syndrome HTN Non-Obstructive CAD Valvular Heart Disease Patient OOB to chair and bathroom BP 154/69 this AM HOLD Amlodipine, Losartan 2/2 softer BPs recently Continue ASA, statin Stroke-like symptoms Myoclonic jerks Continue statin, ASA and Eliquis Pancytopenia: Likely due to chemotherapy Per Heme/Onc note, received GCSF on 03/21 Dr. Lyle recommended additional dose of Neupogen 480mcg on 03/30 and 03/31 Pt received GCSF post-chemo on 04/10 WBC improving from 77k on 04/11 --> 33k on 04/12, likely in setting of GCSF and underlying infection WBC yesterday (04/14) normalized at 6.47k Will repeat CBC w/ diff and BMP on Thursday (04/17) prior to Mediport placement on Thursday (04/18) Normocytic anemia: Chronic, stable Anemia labs: folate/b12 normal; iron 37 and ferritin 58.4 --> C/W iron PO Atrial fibrillation: Continue Eliquis, amiodarone and Lopressor Will need to hold Eliquis beginning THURSDAY AM (04/15) prior to Mediport placement Will start SQ heparin given need to stop Eliquis --> Will need to hold SQ heparin on Thursday at midnight (04/17) Ascending Aortic Aneurysm Dissection s/p Repair: CTM, BP Control Melatonin HS to aid with sleep Gabapentin increased to 600mg TID VTE Prophylaxis: Holding Eliquis starting today and switching to SQ heparin until Thursday (04/17) at midnight - will hold for Mediport placement on Thursday (04/18). Conditional code: Per admitting Dr --> Chest compressions are acceptable, NO intubation. Disposition: [facility] Patient scheduled for Mediport placement this upcoming Thursday (04/18). Patient's son, Timur, wishes for daily updates --> #[phone] Discussed with the patient's son over the phone. Time spent evaluating patient, direct bedside care, chart review, placing orders, interpretation of diagnostic studies, discussion with consultants, patient, and family members, as well as other required patient management activities is 50 minutes Please note the above document was generated using voice recognition software. It may contain grammatical, syntax or spelling errors. Any formal questions or concerns about the content, text or information contained within the body of this dictation should be directly addressed to the provider for clarification Admission and Anticipated Discharge Date Admission Date: March 15, 2024 Subjective Patient seen and examined at bedside. She continues to report pain on her left arm Denies shortness of breath, fever or chills No significant events overnight Review of Systems Review of Systems: All systems reviewed & are unremarkable except as noted in Subjective Physical Exam Physical Exam: General: Vitals as above, NAD, sitting up in bed, ill-appearing. A&O x 3, conversing appropriately. Appears very upset, frustrated. HEENT: Normocephalic, atraumatic. Has lost most of her hair. Normal inspection, PERRL, conjunctivae normal, anicteric sclerae, mucous membranes moist. Respiratory: On 2L oxygen via face mask, lungs clear to auscultation. Lung sounds diminished b/l, no accessory muscle use. Cardiovascular: Regular rate, rhythm, no murmur, normal peripheral pulses. RLE trace edema, ankle brace in place. Vessels: No JVD. Abdomen/GI: Normal bowel sounds, soft, nontender, no hepatosplenomegaly. Extremities/Musculoskeletal: No cyanosis or clubbing, extremity motor strength intact. Moves all extremities. Neurologic: EOMI, accommodation nl, no face palsy, no dysarthria, CN's II-XI not formally tested but appear intact bilaterally. Skin: Warm, dry. Still has some bruising on her L posterior forearm region s/p blood draw, no active bleeding seen. Results & Data Results & Data Vital Signs (Past 12 Hours) Vital Signs Temp Pulse Resp BP Pulse Ox O2 Del Method O2 Flow Rate 04/16/24 09:23 84 132/67 04/16/24 07:30 36.9 C 81 18 146/64 H 98 Oxymask 3 04/16/24 07:20 Oxymask 3
--- NOTE | 2024-04-16 19:43 | CT Scan Report ---
CT SCAN OF THE LEFT HUMERUS WITHOUT IV CONTRAST CLINICAL HISTORY: Left arm pain. History of metastatic disease. COMPARISON STUDY: No priors. TECHNIQUE: CT scan of the left humerus is performed from the shoulder to the elbow. Images are review ed in the axial, sagittal, and coronal planes. A dose lowering technique was utilized adhering to the principles of ALARA. Note that interpretation is suboptimal without plain film correlate. CT DOSE: 978.83 mGy.cm FINDINGS: The skeletal structures are osteopenic. There is no evidence of left humeral fracture. No l ytic or blastic lesion is seen. The shoulder and elbow joints are grossly maintained. There is no lef t axillary lymphadenopathy. Soft tissue edema is seen posterior to the elbow. IMPRESSION: 1. No acute bony abnormality is seen involving the left humerus. 2. Soft tissue edema is noted posterior to the elbow. Correlate clinically for evidence of contusion versus bursitis/cellulitis. ACT 112: Negative or not required by law. Dictated: 04/16/2024 3:44 PM Transcribed: 04/16/2024 4:03 PM Gagandeep [id number] [email or web address] Electronically signed by: Manjinder Myers M.D. 04/16/2024 7:42 PM
[2024-04-17 06:34] LABS: Hematocrit (blood only) 27.2 % (37.0-47.0); Hemoglobin 8.6 g/dl (12.0-16.0); Mean Corpuscular Hemoglobin 30.6 pg (25.0-34.0); Mean Corpuscular Hgb Conc 31.6 g/dL (32.0-36.0); Mean Corpuscular Volume 96.8 fL (80.0-100.0); Mean Platelet Volume 9.6 fL (9.4-12.4); Platelet Count 227 K/uL (130-400); RDW Coefficient of Variation 13.7 % (11.5-14.5); RDW Standard Deviation 47.7 fL (36.4-46.3); Red Blood Count 2.81 M/uL (4.20-5.40); White Blood Count 2.41 K/ul (4.8-10.8)
[2024-04-17 07:03] LABS: BUN Creatinine Ratio 20.8 (10-20); Calcium 8.7 mg/dl (8.6-10.3); Creatinine Clr Calc Pharmacy 83.1 ml/min; Est GFR (African American) 105.1 ml/min; Est GFR (Non-African American) 90.7 ml/min; Potassium 3.8 mmol/L (3.5-5.1)
[2024-04-17 07:24] LABS: Basophils # (auto) 0.13 K/uL (0.00-0.20); Basophils % (auto) 5.4 %; Eosinophils # (auto) 0.03 K/uL (0.00-0.50); Eosinophils % (auto) 1.2 %; Immature Granulocytes # (auto) 0.01 K/uL (0.01-0.20); Immature Granulocytes % (auto) 0.4 %; Lymphocytes # (auto) 1.07 K/uL (1.20-3.40); Lymphocytes % (auto) 44.4 %; Monocytes # (auto) 0.37 K/uL (0.11-0.59); Monocytes % (auto) 15.4 %; Neutrophils % (auto) 33.2 %; RBC Morphology Unremarkable
[2024-04-17] MEDS: MAGNESIUM HYDROXIDE SUSP 30 ML UDC PO SCH (10:56)
--- NOTE | 2024-04-17 14:52 | Hospitalist Progress Note ---
Date of Service April 17, 2024 Assessment & Plan (1) Suspected malignant neoplasm of lung: (2) Acute kidney injury: (3) Lymphadenopathy, mediastinal: (4) Paroxysmal atrial fibrillation: (5) Hypokalemia: (6) Mild right ventricular systolic dysfunction: Plan Sheri Camacho is an 83-year-old F with PMHx of HFpEF, A-fib, thoracic aortic aneurysm, HTN, osteoporosis, inflamed seborrheic keratosis, major depressive disorder, tobacco use disorder, aortic valve replacement with bioprosthetic valve who presented to the ED with acute hypoxemic respiratory failure due to suspected lung malignancy and concern for metastatic disease. 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 Cardiomegaly with pulmonary vascular congestion. Left basilar opacity. * CTA chest: No PE. Large right hilar/upper lobe mass measuring 10 x 8 cm highly suspicious for primary bronchogenic malignancy. Right anterior diaphragmatic lymphadenopathy representing metastatic disease. 2.1 cm left upper lobe nodule abutting the mediastinum likely representing metastatic disease. Small right pleural effusion suggestive of malignant pleural effusion. * CTAP: Negative for metastatic disease. 1.9 cm left adrenal nodule which was likely present on CT of September 25, 2022. Small right pleural effusion. * CT head and CTA head/neck: No acute findings. BioFire was NEGATIVE S/P bronchoscopy 03/17/24 with worsening respiratory failure requiring BiPAP. Patient was weaned off of BiPAP and now on oxygen mask. --> Currently 95% SpO2 on 3L. Heme/Onc Evaluation - S/P Cycle 1 of carbo/etoposide (03/18) [carboplatin day 1, etoposide day 1-3]. Completed cycle 2 of chemotherapy treatment 04/07 - 04/09 S/P Neupogen 04/10 According to the regimen implemented by Heme/Onc, patient should be set to under cycle 3 of chemotherapy ~04/28. Patient to have Mediport placed on Thursday (04/18) with General Surgery per Dr. Lyle's recommendation. --> Holding Eliquis starting TOMORROW AM (04/15); will start her on SQ heparin tomorrow -Need to have patient NPO at midnight on Thursday (04/17); will need to stop SQ heparin Thursday (04/17) at midnight per general surgery - all orders placed. on 04/11; Patient reported feelin ill. WBC 76k, urine, blood cultures, lactic acid obtained Chest CT: Cardiomegaly and emphysema. 2. A large right upper lobe p aramediastinal mass lesion with mediastinal indication a significantly decreased in size as compared to 03/15/2024. Metastatic right cardiophrenic lymphadenopathy has also decreased from previous. 3. Small right and trace left pleural effusions. 4. Patchy airspace opacities in the right lower lobe are nonspecific and may be on an infectious/inflammatory basis. Correlate clinically. Attention at follow-up will be required. 5. An 11 mm left lower lobe nodular opacity is new from previous and may also be inflammatory. Attention at follow-up will be required. 6. A 2.2 cm spiculated lesion in the paramediastinal left upper lobe is unchanged. This remains highly suspicious for neoplasm. Empirically covering w/ IV cefepime and Flagyl--> finished 5 day course. Blood culture shows NGTD Urine culture w/ 3 types of organisms present, all low counts probably skin indio Left Arm Pain (04/15) Pt notes significant L arm pain this morning States pain 2/2 blood draws, requesting pain medication Venous duplex neg CT of arm didn't show any bony abnormality. Soft tissue edema in posterior to the elbow Pleural Effusions: Acute Admitting imaging: CXR with asymmetric right hilar mass like enlargement. Cardiomegaly with pulmonary vascular congestion. Left basilar opacity. Repeat CXR on 03/31 showed pulmonary vascular congestion, suspected atelectasis Pt now weaned to 3L, was given IV Lasix 40 mg on 04/01 and 04/02 04/06 CXR: Cardiomegaly with pulmonary vascular congestion and unchanged right pleural effusion She was seen and evaluated by Pulm who feels hypoxia in setting of compressive atelectasis due to mass, pleural effusions minimal Takes Bumex twice weekly at home Continue to monitor I&Os Patient does have R>L LE edema give history of history of ankle fractures Was on scheduled nebs, pt is not fond of breathing treatments Switched albuterol nebs to PRN, discontinued hypertonic nebs per pt's request Remain off home diuretic, will continue to hold given softer BPs SVC Syndrome HTN Non-Obstructive CAD Valvular Heart Disease Patient OOB to chair and bathroom BP 154/69 this AM HOLD Amlodipine, Losartan 2/2 softer BPs Continue ASA, statin Stroke-like symptoms Myoclonic jerks Continue statin, ASA and Eliquis Pancytopenia: Likely due to chemotherapy Per Heme/Onc note, received GCSF on 03/21 Dr. Lyle recommended additional dose of Neupogen 480mcg on 03/30 and 03/31 Pt received GCSF post-chemo on 04/10 Monitor Normocytic anemia: Chronic, stable Anemia labs: folate/b12 normal; iron 37 and ferritin 58.4 --> C/W iron PO Atrial fibrillation: Continue Eliquis, amiodarone and Lopressor Eliquis currently on hold for possible procedure. Ascending Aortic Aneurysm Dissection s/p Repair: CTM, BP Control Melatonin HS to aid with sleep Gabapentin increased to 600mg TID VTE Prophylaxis: Holding Eliquis starting today and switching to SQ heparin until Thursday (04/17) at midnight - will hold for Mediport placement on Thursday (04/18). Conditional code: Per admitting Dr --> Chest compressions are acceptable, NO intubation. Disposition: [facility] Patient scheduled for Mediport placement this upcoming Thursday (04/18). Patient's son, Timur, wishes for daily updates --> #[phone] Discussed with the patient's son over the phone. Time spent evaluating patient, direct bedside care, chart review, placing orders, interpretation of diagnostic studies, discussion with consultants, patient, and family members, as well as other required patient management activities is 50 minutes Please note the above document was generated using voice recognition software. It may contain grammatical, syntax or spelling errors. Any formal questions or concerns about the content, text or information contained within the body of this dictation should be directly addressed to the provider for clarification Admission and Anticipated Discharge Date Admission Date: March 15, 2024 Subjective Patient reports her left arm pain has increased She denies fever, chills, chest pain, shortness of breath or abdominal pain No significant event overnight Review of Systems Review of Systems: All systems reviewed & are unremarkable except as noted in Subjective Physical Exam Physical Exam: General: Vitals as above, NAD, sitting up in bed, ill-appearing. A&O x 3, conversing appropriately. Appears very upset, frustrated. HEENT: Normocephalic, atraumatic. Has lost most of her hair. Normal inspection, PERRL, conjunctivae normal, anicteric sclerae, mucous membranes moist. Respiratory: On 2L oxygen via face mask, lungs clear to auscultation. Lung sounds diminished b/l, no accessory muscle use. Cardiovascular: Regular rate, rhythm, no murmur, normal peripheral pulses. RLE trace edema, ankle brace in place. Vessels: No JVD. Abdomen/GI: Normal bowel sounds, soft, nontender, no hepatosplenomegaly. Extremities/Musculoskeletal: No cyanosis or clubbing, extremity motor strength intact. Moves all extremities. Neurologic: EOMI, accommodation nl, no face palsy, no dysarthria, CN's II-XI not formally tested but appear intact bilaterally. Skin: Warm, dry. Still has some bruising on her L posterior forearm region s/p blood draw, no active bleeding seen. Results & Data Results & Data Vital Signs (Past 12 Hours) Vital Signs Temp Pulse Resp BP Pulse Ox O2 Del Method O2 Flow Rate 04/17/24 08:31 79 144/69 H 04/17/24 07:52 Oxymask 3 04/17/24 07:23 36.7 C 73 16 132/65 95 Oxymask 3
--- NOTE | 2024-04-18 08:17 | History & Physical Report ---
Date of Service April 18, 2024 Assessment & Plan (1) Small cell lung cancer: Plan: requires port placement for access. risk and benefits of port placement discussed. Consent has been obtained. Will take to the operating room at the earliest convenience. Admission and Anticipated Discharge Date Admission Date: March 15, 2024 History of Present Illness Primary Care Provider: Ramon Quesada DO 83 y/o woman requires port placement for IV access Allergies Allergy/AdvReac Type Severity Reaction Status Date / Time azithromycin Allergy Severe throat Verified 03/15/24 16:38 swelling mivacurium Allergy Severe anaphylaxis Verified 04/15/24 10:10 sulfamethoxazole Allergy Intermediate Hives Verified 03/15/24 16:38 trimethoprim Allergy Intermediate Hives Verified 03/15/24 16:38 penicillin V Allergy Mild arm Verified 03/15/24 16:38 swelling with PCN (tolerates oral PCN/Amoxicillin) macrolides Allergy Unknown Uncoded 04/15/24 10:10 Home Medications Medication Instructions Recorded Confirmed Type multivitamin 1 tab PO QAM 06/03/19 03/15/24 History amlodipine 2.5 mg tablet 2.5 mg PO QAM 09/23/22 03/15/24 History buspirone 10 mg tablet 10 mg PO HS 09/23/22 03/15/24 History calcium carbonate 600 mg-vitamin 1 tab PO HS 09/23/22 03/15/24 History D3 20 mcg (800 unit) chewable tablet (Caltrate 600 plus D) apixaban 5 mg tablet 5 mg PO BID #180 tabs 11/02/22 03/15/24 Rx aspirin 81 mg tablet,delayed 81 mg PO QAM 11/13/22 03/15/24 History release (Adult Low Dose Aspirin) albuterol sulfate 90 mcg/actuation 2 puff inhalation QID PRN 01/01/23 03/15/24 Rx aerosol inhaler shortness of breath or wheezing #8.5 grams metoprolol tartrate 50 mg tablet 50 mg PO BID #180 tabs 09/05/23 03/15/24 Rx amiodarone 200 mg tablet 200 mg PO DAILY #90 tabs 02/08/24 03/15/24 Rx bumetanide 2 mg tablet 3 mg PO 2XWK 03/15/24 04/01/24 History gabapentin 300 mg capsule 300 mg PO BID 03/15/24 03/15/24 History losartan 100 mg tablet 100 mg PO HS 03/15/24 03/15/24 History potassium chloride 10 mEq 10 meq PO BID 03/15/24 03/15/24 History capsule,extended release tobramycin 0.3 %-dexamethasone 0.1 1 drp OPL QID 04/15/24 04/15/24 History % eye drops,suspension Past Med/Surg History Problem List Encounter for pre-operative examination Vulvitis entered into EMR and last edited 03/27/24 Rash of vulva duplicate Advanced care planning/counseling discussion Palliative care by specialist Small cell lung cancer Weakness generalized entered into EMR and last edited 03/18/24 Dyspnea and respiratory abnormalities Refractory nausea and vomiting Abnormal CT scan of lung Suspected malignant neoplasm of lung (Acute) Acute kidney injury entered into EMR and last edited 03/15/24 Paroxysmal atrial fibrillation Hypokalemia (Acute) entered into EMR and last edited 09/23/22 Atypical chest pain entered into EMR and last edited 09/25/22 Mild right ventricular systolic dysfunction Medical History Stroke-like symptoms not suspected to be TIA per neurology note; head imaging negative for stroke Bilateral pneumonia Atrial fibrillation Pleural effusion entered into EMR and last edited 04/01/24 Lung cancer Myoclonic jerking prior to admission 03/15/24-responded to Ativan per admission note Lymphadenopathy, mediastinal A large right upper lobe paramediastinal mass lesion with mediastinal indication a significantly decreased in size as compared to 03/15/2024. Metastatic right cardiophrenic lymphadenopathy has also decreased from previous. SVC obstruction Acute hypoxic respiratory failure on supplemental oxygen-2L; currently hospitalized at [facility] Slurring of speech Abdominal aortic ectasia Severe mitral regurgitation Moderate left ventricular systolic dysfunction Alveolar emphysema of lung Hypertension Dyslipidemia Mild coronary artery disease normal coronary arteries with mild luminal irregularities per 2011 cardiac cath Moderate to severe mitral regurgitation Severe per 11/2022 [facility]CHO Seasonal allergies Anxiety Chronic back pain Breast cancer right, XRT in 1986 Aortic aneurysm s/p repair (2010), follows with [facility] cardio Osteoporosis, unspecified Post-traumatic arthritis of ankle Surgical History 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 Status post open reduction with internal fixation (ORIF) of fracture of ankle Right ankle ORIF: 06/03/20: Grade view 1, MAC#3, ETT 7 at [facility] Status post thoracic aortic aneurysm repair with a stent + "blow out patch" (2010) [facility] History of cardioversion 10/2022 [facility] S/P ankle arthrodesis H/O decompression of ulnar nerve right History of carpal tunnel release right and left History of cataract surgery bilateral History of tonsillectomy History of appendectomy History of colonoscopy Hx of lumpectomy right breast with radiation History of bilateral tubal ligation H/O lumbar discectomy with hardware/cage S/P hardware removal Left wrist Status post open reduction and internal fixation (ORIF) of fracture Left wrist History of cardiac cath 2011- , no stents; f/u dr javed, [place] History of open reduction and internal fixation (ORIF) procedure left wrist Family History Mother Heart disease Other No family history of adverse response to anesthesia Social History Smoking Status: Never smoker Tobacco Type: Cigarettes Cigarettes Per Day: QUIT >12 YRS AGO; Second Hand Exposure: No; Do You Dip or Chew Tobacco: No; Hx Alcohol Use: No Hx Substance Use: No Preferred Language: Setswana Communication Ability: Effective Video Game Engineer Required: No Beliefs That Will Affect Care: None marital status: / Current Living Situation: Family Current Living Situation Comment: son, & grandson Feels Safe at Home: Yes Assistive Devices: Brace/Splint/Immobilizer and Cane Review of Systems Review of Systems: All systems reviewed & are unremarkable except as noted in HPI & below Physical Exam Constitutional: WD/WN, vitals as above Eyes: PERRL, conjunctivae normal, anicteric sclerae ENMT: external ear and nose normal, oropharynx normal Respiratory: normal respiratory effort, lungs clear to auscultation Cardiovascular: RRR, no murmur, no edema Gastrointestinal (Abdomen): normal bowel sounds, soft, nontender, no hepatosplenomegaly Skin: no rashes, warm and dry Psychiatric: A+Ox3, euthymic affect Results & Data Results & Data Vital Signs (Past 12 Hours) Vital Signs Temp Pulse Resp BP Pulse Ox O2 Del Method O2 Flow Rate 04/18/24 08:07 36.8 C 71 20 159/78 H 98 Oxymask 3 04/18/24 07:06 36.6 C 69 16 148/74 H 99 Oxymask 3 Code Status & VTE Plan VTE Prophylaxis Plan VTE Prophylaxis will be ordered: Yes
[2024-04-18] MEDS: LACTATED RINGER'S 1,000 ML IV SCH (08:20)
--- NOTE | 2024-04-18 08:24 | Hospitalist Progress Note ---
Date of Service April 18, 2024 Assessment & Plan (1) Suspected malignant neoplasm of lung: (2) Acute kidney injury: (3) Lymphadenopathy, mediastinal: (4) Paroxysmal atrial fibrillation: (5) Hypokalemia: (6) Mild right ventricular systolic dysfunction: Plan Sheri Camacho is an 83-year-old F with PMHx of HFpEF, A-fib, thoracic aortic aneurysm, HTN, osteoporosis, inflamed seborrheic keratosis, major depressive disorder, tobacco use disorder, aortic valve replacement with bioprosthetic valve who presented to the ED with acute hypoxemic respiratory failure due to suspected lung malignancy and concern for metastatic disease. 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 Cardiomegaly with pulmonary vascular congestion. Left basilar opacity. * CTA chest: No PE. Large right hilar/upper lobe mass measuring 10 x 8 cm highly suspicious for primary bronchogenic malignancy. Right anterior diaphragmatic lymphadenopathy representing metastatic disease. 2.1 cm left upper lobe nodule abutting the mediastinum likely representing metastatic disease. Small right pleural effusion suggestive of malignant pleural effusion. * CTAP: Negative for metastatic disease. 1.9 cm left adrenal nodule which was likely present on CT of September 25, 2022. Small right pleural effusion. * CT head and CTA head/neck: No acute findings. BioFire was NEGATIVE S/P bronchoscopy 03/17/24 with worsening respiratory failure requiring BiPAP. Patient was weaned off of BiPAP and now on oxygen mask. --> Currently 95% SpO2 on 2L. Heme/Onc Evaluation - S/P Cycle 1 of carbo/etoposide (03/18) [carboplatin day 1, etoposide day 1-3]. Completed cycle 2 of chemotherapy treatment 04/07 - 04/09; S/P Neupogen 04/10 Cycle 3 scheduled for around April 28 [facility] placed this AM under general surgery. Per gen sx conversation; ok to restart Eliquis tomorrow Left Arm Pain (04/15) Pt notes significant L arm pain this morning States pain 2/2 blood draws, requesting pain medication Venous duplex neg CT of arm didn't show any bony abnormality. Soft tissue edema in posterior to the elbow Pleural Effusions: Acute Admitting imaging: CXR with asymmetric right hilar mass like enlargement. Cardiomegaly with pulmonary vascular congestion. Left basilar opacity. Repeat CXR on 03/31 showed pulmonary vascular congestion, suspected atelectasis Pt now weaned to 3L, was given IV Lasix 40 mg on 04/01 and 04/02 04/06 CXR: Cardiomegaly with pulmonary vascular congestion and unchanged right pleural effusion She was seen and evaluated by Pulm who feels hypoxia in setting of compressive atelectasis due to mass, pleural effusions minimal Takes Bumex twice weekly at home Continue to monitor I&Os Patient does have R>L LE edema give history of history of ankle fractures Was on scheduled nebs, pt is not fond of breathing treatments Switched albuterol nebs to PRN, discontinued hypertonic nebs per pt's request LE edema improving; continue Bumex Goals of care; counseling: Discussed both with patient and son Timur separately regarding goals of care. Patient receptive to discuss with palliative medicine as she did back in February 2024 and recognizes that she feels like she is not moving in the right direction and does want to have a plan in place if things do not continue moving forward after her next cycle of chemotherapy. Her next cycle of chemotherapy is due to take place the week of May 02. Discussed with patient's son Timur over the phone who stated that he has gone through hospice with his father and I discussed the difference between palliative medicine and hospice. He states that he is willing to have a conversation with palliative medicine to understand what treatment options there are from a symptom perspective but prefers to have that conversation without his mother initially. Consider inpt palliative medicine consult to have conversation with son separately, then together with patient as well. SVC Syndrome HTN Non-Obstructive CAD Valvular Heart Disease Patient OOB to chair and bathroom BP 154/69 this AM HOLD Amlodipine, Losartan 2/2 softer BPs Continue ASA, statin Stroke-like symptoms Myoclonic jerks Continue statin and ASA Restart Eliquis 04/19 Pancytopenia: Likely due to chemotherapy Per Heme/Onc note, received GCSF on 03/21 Dr. Lyle recommended additional dose of Neupogen 480mcg on 03/30 and 03/31 Pt received GCSF post-chemo on 04/10 Monitor Normocytic anemia: Chronic, stable Anemia labs: folate/b12 normal; iron 37 and ferritin 58.4 --> C/W iron PO Atrial fibrillation: Continue Eliquis, amiodarone and Lopressor Eliquis currently on hold for possible procedure. Ascending Aortic Aneurysm Dissection s/p Repair: CTM, BP Control Melatonin HS to aid with sleep Gabapentin increased to 600mg TID Disposition: VTE Prophylaxis:Resume Eliquis post mediport placement; resulme 04/19 Code status: Conditional code: Per admitting Dr --> Chest compressions are acceptable, NO intubation. Disposition: [facility]; pending DC tomorrow or Thu. Patient's son, Timur, wishes for daily updates --> #[phone] I spent a total of 86 minutes coordinating, documenting, and providing care for this patient excluding time spent in the performance of separately billed services. All of the aforementioned completed while collaborating with the assigned attending physician for a full treatment plan. Please see their addendum for further details. Please note the above document was generated using voice recognition software. It may contain grammatical, syntax or spelling errors. Any formal questions or concerns about the content, text or information contained within the body of this dictation should be directly addressed to the provider for clarification Admission and Anticipated Discharge Date Admission Date: March 15, 2024 Supervising Physician Co-Signing Physician Notes Patient seen and examined independently. Discussed with above provider. Patient reports and chest pain after undergoing Port-A-Cath placement. Chest x-ray does not show any new infiltrate/vascular congestion Discussed about pain management with oral and IV medication. Patient is agreeable for trial of IV Dilaudid for pain control. Plan to resume to [facility] tomorrow a.m. I have reviewed the advanced practitioner's documentation, and I agree with, and take responsibility for the plan of care I spent a total of 20 minutes coordinating, documenting, and providing care for this patient excluding time spent in the performance of separately billed services. All of the aforementioned completed while collaborating with the assigned advanced practitioner for a full treatment plan Subjective Pt sitting upright in her hospital bed in no apparent distress. She just returned from left SC port placement under general sx. Remains on oxymask 2L. She feels tired and hungry; eating beef tips and noodles Review of Systems Review of Systems: Neuro: (-) Falls, trauma, slurred speech HEENT: (-) WRIGHT, dizziness, dysphagia, visual or auditory changes CV: (-) CP, palpitations, swelling Resp: (+) SOB GI: (-) appetite changes, N/V/D, bowel changes : (-) urinary changes Skin: (-) rashes Psych: (-) anxiety, depression Physical Exam Physical Exam: Neuro: AAOx4, PERRLA, no aphagia, memory changes, CNII-XII grossly intact HEENT: head normocephalic, moist mucus membranes CV: S1/S2, (-) M/G/R, (-) edema, cap refill < 3 seconds Resp: Lungs CTA in all noble. 2 L oxymask GI: Abdomen S/NT/ND, Ax4 bowel sounds, (-) CVA tenderness Musculoskeletal: 5/5 B/L UE strength, 5/5 B/L LE strength. No gait disturbance Skin: (-) rashes , (-) erythema. Psych: euthymic mood Results & Data Results & Data Vital Signs (Past 12 Hours) Vital Signs Temp Pulse Resp BP Pulse Ox O2 Del Method O2 Flow Rate 04/18/24 08:07 36.8 C 71 20 159/78 H 98 Oxymask 3 04/18/24 07:06 36.6 C 69 16 148/74 H 99 Oxymask 3
[2024-04-18] MEDS ORDERED: ONDANSETRON INJ 2 MG/ML 2 ML VIAL IV PRN (08:46)
[2024-04-18] MEDS ORDERED: fentaNYL citrate PF 100 MCG/2 ML VIAL IV PRN (08:46)
[2024-04-18] MEDS ORDERED: ePHEDrine sulfate 50 MG/ML AMP IV PRN (08:46)
[2024-04-18] MEDS ORDERED: ATROPINE SULFATE 0.1 MG/ML 10ML SYR IV PRN (08:46)
[2024-04-18] MEDS: HEPARIN 100 UNIT/ML 5ML FLUSH ONE (09:47)
[2024-04-18] MEDS: LIDOCAINE 1%/EPINEPHRINE 1:100,000 50 ML VIAL ONE (09:49)
[2024-04-18] MEDS: FLOSEAL HEMOSTATIC MATRIX 10ML TOP ONE (09:52)
--- NOTE | 2024-04-18 09:52 | Post Operative Brief Note ---
Immediate Post Op Note Date of Surgery April 18, 2024 Pre & Post Diagnosis Operation Date: 04/18/24 08:45 Pre-Op Diagnosis: Small Cell Lung Cancer Post-Op Diagnosis: Small Cell Lung Cancer I identified the patient and participated in the time-out.: Yes Procedure Operation Date: 04/18/24 08:45 Actual Procedures p Port Placement to Left Subclavian. (Left) - Alvaro Rankin MD Surgeon Alvaro Rnakin MD Sheet [employer] Nailer ANAYELI Grayson assisted with tissue retraction, camera op, closure Estimated Blood Loss 5 Findings Consistent with Post-Op Diagnosis
--- NOTE | 2024-04-18 09:58 | Operative Report ---
Post Operative Report Pre & Post Diagnosis Operation Date: 04/18/24 08:45 Pre-Op Diagnosis: Small Cell Lung Cancer Post-Op Diagnosis: Small Cell Lung Cancer I identified the patient and participated in the time-out.: Yes Procedure Operation Date: 04/18/24 08:45 Actual Procedures p Port Placement to Left Subclavian. (Left) - Alvaro Rankin MD Surgeon Alvaro Rankin MD Manager Machine ANAYELI Grayson assisted with tissue retraction, camera op, closure Estimated Blood Loss 5 Findings Consistent with Post-Op Diagnosis port placed in the left subclavian vein Specimens none Drains none Anesthesia Type General Complications no immediate complications Description of Procedure patient was taken to the operating room, placed supine on the operating table. A timeout was performed, perioperative antibiotics were administered, SCD boots were placed. After adequate anesthesia and analgesia was obtained, the area is prepped and draped in the normal sterile fashion. Incision was made with 15 blade scalpel in the deltopectoral groove on the left. We attained the level of the deltopectoral fascia and this was incised. We noted the cephalic vein which was quite small. It was encircled, tied off distally, controlled proximally with 3 oh-0 silk suture. We created a venotomy and attempted to thread the catheter through the vein, however the vein was too small. We are unable to use the cephalic. It was tied off proximally. She was placed on Trendelenburg position. Using Seldinger technique, we attempted to access the subclavian vein underneath the clavicle. On the first pass, the subclavian artery was accessed. The needle was removed and direct pressure was held for 5 minutes. No hematoma was noted. On the second pass, the subclavian vein was accessed and a wire was threaded through the needle down into the superior vena cava. This was confirmed with intraoperative fluoroscopy. The introducer and dilator were then threaded over the wire, and the wire and d ilator were removed. The catheter, Which had been flushed with heparinized saline, was then threaded down through the introducer and the introducer was removed. This was all done under direct visualization with intraoperative fluoroscopy. The catheter flushed and withdrew easily, and was reflushed with heparinized saline. a pocket was created on the anterior chest wall with the electrocautery and blunt dissection. The catheter was cut to size and placed onto the port and secured in place. The port was then sewn into the pocket with 2-0 Prolene suture. Intraoperative fluoroscopy confirmed good positioning with no kinks in the catheter. The catheter flushed and withdrew easily, and was again flushed with heparinized saline. The wound was then checked for hemostasis and was attended to and this was found to be excellent. 10 mL of Floseal was used for additional hemostasis. Subcutaneous tissue was closed with 3-0 Vicryl. The skin was closed with running 4-0 Monocryl subcuticular stitch. Dermabond was applied. She tolerated the procedure without complication, was transferred in stable condition to the PACU. All instrument, needle, and sponge counts were correct at the end of the case my pharmacist assistant was necessary throughout the procedure for tissue retraction, possible camera operation, and closure of the wounds. I understand that section 1842(b)(7)(D) of the Social Security act generally prohibits Medicare physician fee schedule payment for the services of assistants at surgery in teaching hospitals when qualified residents are available to furnish such services. I certify that the services for which payment is claimed were medically necessary and that no qualified resident was available to perform the services. I further understand that these services are subject to postpayment review by the Medicare carrier. I attest to the content of the Intraoperative Record and any orders documented therein. Any exceptions are noted below.
--- NOTE | 2024-04-18 11:16 | XRay Report ---
XR chest 1V portable CLINICAL HISTORY: post op left port TECHNIQUE: Single frontal radiograph of the chest was obtained. Comparison: Comparison is made to chest radiograph 04/07/2024 FINDINGS: Median sternotomy wires are unchanged. Portacatheter is seen. Cardiomegaly is noted. Prominence and c ephalization of the vasculature is seen. Trace right pleural effusion. IMPRESSION: No acute chest disease. Cardiomegaly is noted. ACT 112: Negative or not required by law. Electronically signed by: Umesh De Leon M.D. 04/18/2024 11:14 AM
--- NOTE | 2024-04-18 11:27 | Anesthesiology Progress Note ---
Date of Service April 18, 2024 Anesthesia Post Procedure Vital Signs Vital Signs: Temp Pulse Pulse Pulse Resp BP Pulse Ox 04/18/24 11:09 36.6 C 76 16 173/75 H 96 04/18/24 10:25 64 18 132/53 L 97 04/18/24 10:15 67 20 144/63 H 98 04/18/24 10:05 36.6 C 75 25 H 137/52 L 3 L 04/18/24 09:56 04/18/24 08:07 36.8 C 71 20 159/78 H 98 04/18/24 07:06 36.6 C 69 16 148/74 H 99 04/17/24 19:36 36.6 C 78 16 153/71 H 98 04/17/24 14:52 36.4 C L 69 16 119/57 L 97 O2 Del Method O2 Flow Rate 04/18/24 11:09 Oxymask 3 04/18/24 10:25 Oxymask 3 04/18/24 10:15 Oxymask 3 04/18/24 10:05 Oxymask 3 04/18/24 09:56 Oxymask 3 04/18/24 08:07 Oxymask 3 04/18/24 07:06 Oxymask 3 04/17/24 19:36 Room Air 04/17/24 14:52 Oxymask 3 Pain Intensity Chest: Pain Intensity: 2 Bilateral Back: Pain Intensity: 6 Head: Pain Intensity: 5 Throat: Pain Intensity: 3 Left Arm: Pain Intensity: 4 Transfer of Care Handoff Completed per policy Notes Mental Status: alert / awake / arousable and participated in evaluation Patient Amnestic to Procedure: Yes Nausea / Vomiting: adequately controlled Pain: adequately controlled Airway Patency, RR, SpO2: stable & adequate BP & HR: stable & adequate Hydration State: stable & adequate Anesthetic Complications: no major complications apparent and Pt Satisfied with anesthetic care
[2024-04-18] MEDS ORDERED: Nursing to Pharmacy Communication SCH (14:00)
[2024-04-18] MEDS: HYDROmorphone INJ 0.5 MG/0.5 ML SYR IV PRN ×2 (15:27→19:31)
[2024-04-19] MEDS: APIXABAN 5 MG TABLET PO SCH (07:59)
--- NOTE | 2024-04-19 11:03 | Discharge Summary ---
Date of Service April 19, 2024 Admission HPI Per Admitting Provider 83 y/o woman requires port placement for IV access Admission Exam Per Admitting Provider Constitutional: Alert, ill in appearance, nontoxic HEENT: Mucous membranes moist. Sclera clear Neck: Soft, no adenopathy Lungs: Decreased breath sounds, prolonged expiratory phase, some rhonchi CV: S1-S2, regular Abdomen: Soft, nontender, nondistended Extremities: Trace pretibial edema Musculoskeletal: No significant joint tenderness Neuro: No focal deficits Psych: Cooperative, normal mood Principal Diagnosis malignant small cell lung ca Discharge Exam Neuro: AAOx4, PERRLA, no aphagia, memory changes, CNII-XII grossly intact HEENT: head normocephalic, moist mucus membranes CV: S1/S2, (-) M/G/R, (-) edema, cap refill < 3 seconds Resp: Lungs CTA in all noble. 2 L oxymask GI: Abdomen S/NT/ND, Ax4 bowel sounds, (-) CVA tenderness Musculoskeletal: 5/5 B/L UE strength, 5/5 B/L LE strength. No gait disturbance Skin: (-) rashes , (-) erythema. Psych: euthymic mood Discharge Data Allergies Allergy/AdvReac Type Severity Reaction Status Date / Time azithromycin Allergy Severe throat Verified 03/15/24 16:38 swelling mivacurium Allergy Severe anaphylaxis Verified 04/15/24 10:10 sulfamethoxazole Allergy Intermediate Hives Verified 03/15/24 16:38 trimethoprim Allergy Intermediate Hives Verified 03/15/24 16:38 penicillin V Allergy Mild arm Verified 03/15/24 16:38 swelling with PCN (tolerates oral PCN/Amoxicillin) macrolides Allergy Unknown Uncoded 04/15/24 10:10 Consultations 03/15/24 20:34 Consult Pulmonology Routine 03/17/24 08:00 Consult Neurology Routine 03/17/24 08:38 Consult Oncology Routine Consult Radiation Oncology Routine 03/17/24 14:42 Consult Palliative Care Routine 03/26/24 23:13 Consult Gynecology Routine Procedures Performed Operation Date: 04/18/24 08:45 Actual Procedures p Port Placement to Left Subclavian. (Left) - Alvaro Rankin MD Ordered Studies 03/15/24 15:02 CT for pulmonary embolism PE [CT angio chest PE protocol] Stat 03/15/24 19:03 CT abd pelvis oral and IV con Routine 03/16/24 08:29 CT head/brain wo/w con Urgent 03/16/24 21:54 CT head/brain wo con Stat CTA head w con [CT angio head w con] Stat CTA neck with con [CT angio neck with con] Stat 03/27/24 20:04 CT head/brain wo con Stat 04/01/24 09:42 US point of care ultrasound Urgent 04/11/24 10:23 CT chest diagnostic wo con Stat 04/12/24 11:36 CT head/brain wo con Stat 04/15/24 09:13 US venous doppler UE LT Stat 04/16/24 11:11 CT arm [CT humerus LT wo con] Urgent Hospital Course (1) Suspected malignant neoplasm of lung: (2) Acute kidney injury: (3) Lymphadenopathy, mediastinal: (4) Paroxysmal atrial fibrillation: (5) Hypokalemia: (6) Mild right ventricular systolic dysfunction: Plan Patient was admitted to the [facility] on March 15 with acute hypoxic respiratory failure due to suspected lung malignancy. Additional past medical history includes HTN, nonobstructive CAD, valvular heart disease, pancytopenia, A-fib, AAA, history of tobacco use. There was evidence noted of metastatic disease within the chest via diagnostic imaging and concern of occlusion of her SVC. Right pleural effusions are suspected to be malignant. Pulmonary evaluated the patient on 03/16/24 and a bronchoscopy was performed on 03/17/24 for an EBUS biopsy. Hematology oncology evaluated the patient on 03/17/2024 to discuss the highly suggestive imaging thought to be metastatic lung cancer. It was discussed that imaging suggestive of SVC syndrome patient did not have send in epic and clinical symptoms of such. Given her past smoking history small cell lung cancer was a very strong differential which was confirmed via EBUS Biopsy. Patient was set to start radiation on 03/18/2024 however she is having significant discomfort in her back this was delayed 1 week. Palliative medicine did become involved 03/18/2024 to discuss goals of care. Patient started chemotherapy 03/18/2024 of carboplatin/etoposide. For 3-day cycle followed by GCSF (post chemo. She completed cycle #2 on Thursday04/12/24. Patient was delayed with her discharge as there was concerns that she was developing bilateral pneumonia. Her WBC did become elevated; however, she did receive Neulasta on 04/10. This has resolved and her blood cultures and urine cultures were negative. She had a right subclavian mediport placed on 04/18/24. Third three-day cycle due to begin on 04/28/24. This will be arranged by Heme/onc. Patient was taking IV Lasix intermittently due to worsening edema and is now going to be discharged on lasix daily. Her LE edema has shown improvement and her pleural effusions appear stable. She has consistently required 2 liters oxy mask for oxygen supplementation. I have discussed palliative medicine options with the patient and her son, Timur, who requests to be updated regularly. His phone number is as follows [phone]. Patient receptive to discuss with palliative medicine as she did back in February 2024 and recognizes that she feels like she is not moving in the right direction and does want to have a plan in place if things do not continue moving forward after her next cycle of chemotherapy. Discussed with patient's son Timur over the phone who stated that he has gone through hospice with his father and I discussed the difference between palliative medicine and hospice. He states that he is willing to have a conversation with palliative medicine to understand what treatment options there are from a symptom perspective but prefers to have that conversation without his mother initially. Consider inpt palliative medicine consult to have conversation with son separately, then together with patient as well. We wish Sheri well after her discharge from [facility]. Hospital course diagnostics/procedures: Diagnostic imagin/21: Chest CTA: large right hilar/upper lobe mass measuring 10 x 8 cm described above. This is highly suspicious for a primary bronchogenic malignancy. Right anterior diaphragmatic lymphadenopathy likely represents metastatic disease. 2.1 cm left upper lobe nodule abutting the mediastinum likely representing metastatic disease. Small right pleural effusion which may represent a malignant pleural effusion. This right hilar/upper lobe mass results in mass effect along the right pulmonary arteries as well as invasion into the right upper lobe bronchus and bronchus intermedius as described above. This mass also results in severe narrowing of the SVC without evidence for occlusion at this time. 03/15/24: Abdomen/Pelvis CT: 1.9 cm left adrenal nodule. This was likely present on CT of September 25, 2022. Although likely benign, this could be assessed with a PET/CT as indicated. Small right pleural effusion. A malignant effusion cannot be excluded. 03/16/24: Head CT: negative 03/16/24: Head/neck CTA: No acute findings in the arteries 03/20/24: CXR: Stable pleural effusions 03/31/24: Chest CT 2. Ill-defined peripheral opacities of the left mid lung may be artifactual or represent pneumonia. Moderate right-sided pleural effusion with persistent right basilar consolidation. Large right-sided hilar mass is better seen on the comparison CTA of the chest. 04/02/24: CXR: Cardiomegaly and emphysema with pulmonary vascular congestion. This is similar to 03/31/2024. Right large left pleural effusions with dependent consolidation. A large mediastinal mass lesion was better assessed on the recent chest CT. 04/02/24: Bedside ultrasound performed by pulmonary revealing minimal right sided pleural effusion with atelectasis of RLL; continue conservative measures. 04/06/24: .CXR: Unchanged right pleural effusion with mildly improved right basilar opacities. 04/15/24: Extremity venous study: negative for DVT 04/16/24: Humerus CT: no acute bony abnormality seen in the L humerus. Soft tissue edema noted posterior to the elbow. 04/18/24: CXR: Cardiomegaly is noted. Prominence and cephalization of the vasculature is seen. Trace right pleural effusion Procedures: 03/17/24: EBUS biopsy performed by Pulmonary. 03/17/24: ECHO: LV size normal with mild LVH, EF 55 to 60% with normal wall motion. Moderate MR and mild TR. Grade 1 diastolic dysfunction Thank you kindly for taking care of Ms. Camacho after her care received at [facility]. Total Time Total Time Spent Total Time Spent (In Minutes): I spent a total of 62 minutes coordinating, documenting, and providing care for this patient excluding time spent in the performance of separately billed services. All of the aforementioned completed while collaborating with the assigned attending physician for a full treatment plan. Please see their addendum for further details. Discharge Plan Discharge Items Patient Disposition: Transfer Inpatient Rehab Fac Reason For Visit: SHORT OF BREATH Discharge Diagnosis: metastatic small cell lung cancer Activity: Resume your previous activity Lifting: None Lifting Comment: avoid lifting with left arm where port was placed yesterday Bathing: Keep incision dry Non-emergency contact: Primary Care Provider and Oncologist Call non-emergency contact if: you have any medication questions, your pain is not controlled and your temperature is above 101 Follow-up/Referrals: Ramon Quesada, [Primary Care Provider] - Diet: Heart Healthy Diet Texture: Easy to Chew Addtl Attending Provider Instructions: Sheri, Jamaal were admitted to the hospital with shortness of breath on March 15. You have had a complex medical course. You have had numerous diagnostic imaging tests that revealed a large mass in your right upper lobe of your lungs. The imaging that you received is highly suggestive of metastatic lung cancer and malignant pleural effusion /Fluid in your lungs. You met with Dr. Lyle with hematology/oncology given your past smoking history you are being treated for small cell lung cancer that has been confirmed with biopsy received during your bronchoscopy. You completed 2 cycles of chemotherapy while you are here including carboplatin, etoposide you also had fluid in your lungs that appears to be related to your disease. Your next chemotherapy is set to take place on April 28, 2024 which will be [facility]. It is expected that you will complete 4 cycles of chemotherapy dependent on your toleration and presentation. I would consider discussing your goals of care as your proceed with treatment with palliative medicine. It has been a pleasure caring for you, Sheri, while you have been with us at [facility]. Pending Studies at Discharge: No Stand-Alone Forms: My [facility] Skilled Items Patient informed of condition?: Yes DNR: No Discharge Level of Care: Skilled Communicable Disease: No Discharge Prognosis: Stable Lines: Mid-Line Urinary Catheter: No Medications and DC Order Prescriptions: New loratadine [Wal-itin] 10 mg Tablet 10 mg PO QAM Qty: 30 0RF ferrous sulfate 325 mg (65 mg iron) Tablet,Delayed Release (Dr/Ec) 325 mg PO QAM Qty: 30 0RF hydroxyzine HCl 10 mg Tablet 10 mg PO BID PRN (Reason: itching) Qty: 10 0RF magnesium hydroxide [Milk of Magnesia] 400 mg/5 mL Suspension 30 ml PO BID Qty: 355 0RF fluticasone propionate 50 mcg/actuation [place],Suspension 1 spray NA HS Qty: 16 0RF Saline Mist 0.65 % Aerosol,[place] 2 spray NA TID PRN (Reason: dry nasal passages) Qty: 44 0RF melatonin 3 mg Tablet 3 mg PO HS PRN (Reason: sleep) Qty: 30 0RF guaifenesin [Mucinex] 600 mg Tablet Extended Release 12hr 600 mg PO Q12 Qty: 30 0RF miconazole nitrate 2 % Cream 1 applic EXT BID Qty: 14 0RF Boudreauxs Butt Paste 16 % Ointment 1 applic EXT BID Qty: 57 0RF furosemide [Lasix] 20 mg tablet 20 mg PO DAILY Qty: 30 0RF oxycodone 10 mg tablet 10 mg PO Q6H PRN (Reason: pain) Qty: 14 0RF Continued multivitamin Tablet 1 tab PO QAM Qty: 30 0RF amiodarone 200 mg tablet 200 mg PO DAILY Qty: 90 3RF aspirin [Adult Low Dose Aspirin] 81 mg tablet,delayed release (DR/EC) 81 mg PO QAM Qty: 30 0RF buspirone 10 mg tablet 10 mg PO HS Qty: 30 0RF metoprolol tartrate 50 mg tablet 50 mg PO BID Qty: 180 3RF albuterol sulfate 90 mcg/actuation HFA aerosol inhaler 2 puff inhalation QID PRN (Reason: shortness of breath or wheezing) Qty: 8.5 2RF tobramycin-dexamethasone 0.3-0.1 % drops,suspension 1 drp OPL QID Qty: 5 0RF apixaban 5 mg tablet 5 mg PO BID Qty: 180 3RF Caltrate 600 plus D 600 mg-20 mcg (800 unit) Tablet,Chewable 1 tab PO HS Qty: 30 0RF Changed potassium chloride 10 mEq capsule, extended release 10 meq PO BID Qty: 30 0RF gabapentin 300 mg capsule 600 mg PO BID Qty: 90 0RF Rx Instructions: PER PT'S LIST, "TAKE PRN ALSO". losartan 100 mg tablet 100 mg PO HS Qty: 30 0RF Discontinued amlodipine 2.5 mg tablet 2.5 mg PO QAM bumetanide 2 mg tablet 3 mg PO 2XWK Rx Instructions: For edema in legs Discharge Orders: Discharge Order (Routine); Ordered 04/19/24 Ordered By: Radha Mota/Other Patient Handouts: A1C, Cancer: Managing Fatigue Admission Data Admit Date/Time: 03/15/24 19:03 Attending Provider: Rishi Gutierrez Admit Provider: Thai Gray Primary Care Provider: Ramon Quesada Other Providers: [facility]; Anastasia Zepeda; Manuelito Gregory,Antonio; IRB Approved Study,Mirlande; Mariam Fowler I.; Bird Banerjee; Katharina Harley; Kaz Canchola; Katharina Garcia; Keil Phillips; Keanu Sierra; Alexander Hilario; Lj Escobar; Pepper Foster; Romain Andrade; Chinmay Silva; Remington Acevedo; Justen Herrera; Xiao Donovan; Peyton Chávez; Lj Hoover; Manjinder Pham; Chrissie Gary; Inna Lechuga; Keaton Monaco; Paula Cardoza; Ericka Natarajan; Jan Shelby; Mason Black; Fe Lyle; [facility],No Attending; Lesia Dudley; Mina Arenas; Brando Oliver; Nupur Lozano; Capri Castellanos; Jeremy Cazares; Pepper Garduno; Helga Regalado; Reggie Peace; Meenakshi Thomas; Jordi Moon Steven A; Gisela Alfredo; Steffanie Mac; Cony Quesada; Emi Bledsoe; Vaishali Pritchett; Queta Gonsales; Jelly Mejia; Gen Spann; Shellie Lynch Supervising Physician Co-Signing Physician Notes Patient seen and examined independently. Discussed with above provider. She is in good spirits; she is comfortable to be discharged today. She reports some soreness on her surgical site; currently on oxycodone as needed Her son is also comfortable with the plan. Patient to be discharged to rehab today. Plan to continue chemotherapy as outpatient I have reviewed the advanced practitioner's documentation, and I agree with, and take responsibility for the plan of care I spent a total of 20 minutes coordinating, documenting, and providing care for this patient excluding time spent in the performance of separately billed services. All of the aforementioned completed while collaborating with the assigned advanced practitioner for a full treatment plan
== END 2024-04-19 16:44 | DRG 166 ==
LOC: ED 13:34 → EDINP 19:03 → SUATTDRO 19:03 → 2S 20:32 → 3W 03-28 14:41
DX: I50.32 Chronic diastolic (congestive) heart failure; R29.810 Facial weakness; C78.02 Secondary malignant neoplasm of left lung; Z79.01 Long term (current) use of anticoagulants; Z87.891 Personal history of nicotine dependence; E87.6 Hypokalemia; Z85.3 Personal history of malignant neoplasm of breast; J91.0 Malignant pleural effusion; J96.01 Acute respiratory failure with hypoxia; N17.9 Acute kidney failure, unspecified; D64.9 Anemia, unspecified; Z11.52 Encounter for screening for COVID-19; Z88.2 Allergy status to sulfonamides; Z88.8 Allergy status to other drugs, medicaments and biological substances; Z79.899 Other long term (current) drug therapy; I87.1 Compression of vein; R47.81 Slurred speech; J43.9 Emphysema, unspecified; I25.10 Atherosclerotic heart disease of native coronary artery without angina pectoris; Z88.0 Allergy status to penicillin; D61.810 Antineoplastic chemotherapy induced pancytopenia; J98.11 Atelectasis; I34.0 Nonrheumatic mitral (valve) insufficiency; G25.3 Myoclonus; Z92.3 Personal history of irradiation; M79.602 Pain in left arm; Z79.82 Long term (current) use of aspirin; E78.5 Hyperlipidemia, unspecified; C34.11 Malignant neoplasm of upper lobe, right bronchus or lung; F41.9 Anxiety disorder, unspecified; T45.1X5A Adverse effect of antineoplastic and immunosuppressive drugs, initial encounter; Z88.1 Allergy status to other antibiotic agents; C77.1 Secondary and unspecified malignant neoplasm of intrathoracic lymph nodes; J18.9 Pneumonia, unspecified organism; M81.0 Age-related osteoporosis without current pathological fracture; I48.0 Paroxysmal atrial fibrillation; I11.0 Hypertensive heart disease with heart failure

== ENCOUNTER 2024-11-18 12:46 | Inpatient (IN) ==
--- NOTE | 2024-11-18 13:17 | Emergency Department Note ---
Impression & Plan COVID-19 ADMIT ED Provider Note HPI: History obtained from patient. The patient is a 83-year-old female with history of metastatic small cell lung cancer, who presents the emergency department with a chief complaint of shortness of breath and altered mental status. Patient presents with her grandson at the bedside who is very helpful with history, he states that the patient started radiation therapy in September and has been having issues with confusion and generalized decline since starting therapy. He states that the patient has become more short of breath and today was noted to be hypoxic on home monitor and therefore EMS was contacted and the patient was brought to the ER to be assessed. On arrival here to the ED, the patient is somewhat lethargic appearing but she is arousable to verbal stimuli, she was able to request to sit up in the bed. She is very frail appearing, she was placed on nasal cannula oxygen and is now saturating at 91% on 5 L nasal cannula oxygen on my initial evaluation. ROS: - Per HPI Differential Diagnosis: Progressive metastatic lung cancer, pleural effusion, pneumonia, pulmonary embolism, metastatic disease to the brain, stroke, intracranial hemorrhage, COVID-19 infection, influenza A infection, amongst other potential pathologies. *Outpatient medications and allergy history reviewed. PE: General: Alert to verbal stimuli, listless in appearance, frail-appearing, cachectic HEENT: Normocephalic, trachea midline Eyes: Extraocular eye movement is intact, no scleral erythema Pulmonary: Coarse bilateral breath sounds with crackles at the bases Cardio: Regular rate and rhythm GI: Abdomen is soft to palpation : No suprapubic tenderness MSK: No evidence of trauma or malformation of the extremities, no edema Skin: No evidence of rash Neuro: Alert to verbal stimuli, no focal deficits Psychiatric: Cooperative INDEPENDENT INTERPRETATIONS: patient monitor: (As interpreted by myself): - An order was placed for continuous cardiac monitoring - Patient was noted to be in sinus rhythm with a rate of 62 EKG: (As interpreted by myself): Rate: 61 Rhythm: Normal sinus rhythm Intervals: QTc 501 ms, otherwise within normal limits ST changes: no ST elevation Time: 1350 Chest x-ray: (As interpreted by myself): Multifocal pneumonia pattern Interventions provided in ED: -IV fluid bolus, supplemental oxygen Medical Decision Making: IV was established and lab work obtained, patient was placed on quality assurance monitor chassis. Lab work shows a leukocytosis of 13.34, hemoglobin is stable at 10.5, platelet count is normal, CMP shows chloride of 85, serum bicarbonate level is greater than 45, BUN is 47, glucose is 306. Troponin is stable at 24.5. Chest x-ray shows a multifocal pneumonia pattern, viral panel testing was obtained and the patient is positive for COVID-19. Will add procalcitonin and patient will be treated prophylactically following results of CT imaging that showed possible mucous plugging, multifocal pneumonia, and worsening metastatic disease in the lungs. CT imaging of the head was obtained that shows no evidence of any acute intracranial process. Overall the patient is very frail and cachectic appearing, she seems to be not responding well to recent therapy, I did discuss the patient's presentation with hematology/oncology, Dr. Lyle, and she is familiar with the patient. She states she will consult on the patient's case on an inpatient basis. Patient's family states the patient will be DNR/DNI CODE STATUS, they would consider pursuing hospice services as the patient does not respond well to initial treatments for her respiratory failure. Patient is saturating at 91% on 5 L nasal cannula oxygen on my reevaluation. Patient's family is in agreement for admission. Case was discussed with [facility], and the patient was placed to the admission service of Dr. Tello. Consultants/Discussions held with other healthcare providers: -Hematology, Dr. Lyle -Hospitalist, Dr. Tello Disposition discussion held by myself with: -Patient and patient's family at the bedside * CRITICAL CARE TIME: ( 44 ) minutes -Time spent independent of any procedures and management of patient with acute on chronic respiratory failure with hypoxia with oxygen saturations at 86% on minimal nasal cannula oxygen requiring up titration, interpretation of diagnostic studies, time spent at the bedside, discussion with family in regards to plan of care, discussion with other healthcare providers and arrangement of admission. Diagnosis: 1. Hypoxia with acute respiratory failure 2. COVID-19 infection, acute 3. Multifocal pneumonia, acute 4. History of lung cancer with metastatic disease 5. Leukocytosis, acute 6. Hyperglycemia, acute Disposition: Admission Dexter Ng DO Emergency Medicine Past Med/Surg History Problem List (Updated 11/18/24 @ 15:57 by Dexter Ng DO) COVID-19 (Acute) Brain metastasis (Chronic) Advanced care planning/counseling discussion Small cell lung cancer (Chronic) Weakness generalized entered into EMR and last edited 03/18/24 Dyspnea and respiratory abnormalities Refractory nausea and vomiting Abnormal CT scan of lung Suspected malignant neoplasm of lung (Acute) Paroxysmal atrial fibrillation Atypical chest pain entered into EMR and last edited 09/25/22 Mild right ventricular systolic dysfunction Medical History Vulvitis entered into EMR and last edited 03/27/24 Rash of vulva duplicate Palliative care by specialist Acute kidney injury entered into EMR and last edited 03/15/24 Hypokalemia entered into EMR and last edited 09/23/22 Stroke-like symptoms not suspected to be TIA per neurology note; head imaging negative for stroke Bilateral pneumonia Atrial fibrillation Pleural effusion entered into EMR and last edited 04/01/24 Lung cancer Myoclonic jerking prior to admission 03/15/24-responded to Ativan per admission note Lymphadenopathy, mediastinal A large right upper lobe paramediastinal mass lesion with mediastinal indication a significantly decreased in size as compared to 03/15/2024. Metastatic right cardiophrenic lymphadenopathy has also decreased from previous. SVC obstruction Acute hypoxic respiratory failure on supplemental oxygen-2L; currently hospitalized at [facility] Slurring of speech Abdominal aortic ectasia Severe mitral regurgitation Moderate left ventricular systolic dysfunction Alveolar emphysema of lung Hypertension Dyslipidemia Mild coronary artery disease normal coronary arteries with mild luminal irregularities per 2011 cardiac cath Moderate to severe mitral regurgitation Severe per 11/2022 ECHO Seasonal allergies Anxiety Chronic back pain Breast cancer right, XRT in 1986 Aortic aneurysm s/p repair (2010), follows with [facility] cardio Osteoporosis, unspecified Post-traumatic arthritis of ankle Surgical History 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 Status post open reduction with internal fixation (ORIF) of fracture of ankle Right ankle ORIF: 06/03/20: Grade view 1, MAC#3, ETT 7 at [facility] Status post thoracic aortic aneurysm repair with a stent + "blow out patch" (2010) [facility] History of cardioversion 10/2022 [facility] S/P ankle arthrodesis H/O decompression of ulnar nerve right History of carpal tunnel release right and left History of cataract surgery bilateral History of tonsillectomy History of appendectomy History of colonoscopy Hx of lumpectomy right breast with radiation History of bilateral tubal ligation H/O lumbar discectomy with hardware/cage S/P hardware removal Left wrist Status post open reduction and internal fixation (ORIF) of fracture Left wrist History of cardiac cath 2011- , no stents; f/u dr javed, [place] History of open reduction and internal fixation (ORIF) procedure left wrist Family History Mother Heart disease Other No family history of adverse response to anesthesia Social History Smoking Status: Former smoker Tobacco Type: Cigarettes Cigarettes Per Day: QUIT >12 YRS AGO; Second Hand Exposure: No; Do You Dip or Chew Tobacco: No; Hx Alcohol Use: No Hx Substance Use: No Preferred Language: Syriac Communication Ability: Effective 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 Beliefs That Will Affect Care: None marital status: / Current Living Situation: Family Current Living Situation Comment: son, & grandson Feels Safe at Home: Yes Assistive Devices: Brace/Splint/Immobilizer and Cane Allergies Allergies Allergy/AdvReac Type Severity Reaction Status Date / Time azithromycin Allergy Severe throat Verified 10/10/24 12:09 swelling mivacurium Allergy Severe anaphylaxis Verified 10/10/24 12:09 sulfamethoxazole Allergy Intermediate Hives Verified 10/10/24 12:09 trimethoprim Allergy Intermediate Hives Verified 10/10/24 12:09 penicillin V Allergy Mild arm Verified 10/10/24 12:09 swelling with PCN (tolerates oral PCN/Amoxicillin) macrolides Allergy Unknown Uncoded 10/10/24 12:09 Home Meds Home Medications Medication Instructions Recorded Confirmed ondansetron HCl 8 mg tablet 8 mg PO Q8H PRN 06/02/24 10/10/24 prochlorperazine maleate 10 mg 10 mg PO Q6H PRN 06/02/24 10/03/24 tablet (Compazine) magnesium hydroxide 400 mg/5 mL 30 ml PO BID PRN 06/30/24 10/03/24 oral suspension (Milk of Magnesia) apixaban 5 mg tablet 2.5 mg PO BID 09/19/24 10/10/24 diphenhydramine HCl 25 mg capsule 25 mg PO DAILY PRN 09/19/24 10/03/24 (Benadryl) Previous Rx's Medication Instructions Recorded albuterol sulfate 90 mcg/actuation 2 puff inhalation QID PRN 04/19/24 aerosol inhaler shortness of breath or wheezing #8.5 grams amiodarone 200 mg tablet 200 mg PO DAILY #90 tabs 04/19/24 aspirin 81 mg tablet,delayed 81 mg PO QAM #30 tabs 04/19/24 release (Adult Low Dose Aspirin) buspirone 10 mg tablet 10 mg PO HS #30 tabs 04/19/24 calcium 600 mg (as carbonate)-vit 1 tab PO HS #30 tabs 04/19/24 D3 20 mcg (800 unit) chewable tablet (Caltrate plus D) fluticasone propionate 50 1 spray NA HS #16 grams 04/19/24 mcg/actuation nasal spray,suspension furosemide 20 mg tablet (Lasix) 20 mg PO DAILY #30 tabs 04/19/24 gabapentin 300 mg capsule 600 mg (2 x 300 mg) PO BID #90 caps 04/19/24 guaifenesin 600 mg tablet, 600 mg PO Q12 #30 tabs 04/19/24 extended release 12 hr (Mucinex) hydroxyzine HCl 10 mg tablet 10 mg PO BID PRN itching #10 tabs 04/19/24 losartan 100 mg tablet 100 mg PO HS #30 tabs 04/19/24 metoprolol tartrate 50 mg tablet 50 mg PO BID #180 tabs 04/19/24 multivitamin 1 tab PO QAM #30 tabs 04/19/24 sodium chloride 0.65 % nasal spray 2 spray NA TID PRN dry nasal 04/19/24 aerosol (Saline Mist) passages #44 mL tobramycin 0.3 %-dexamethasone 0.1 1 drp OPL QID #5 mL 04/19/24 % eye drops,suspension potassium chloride 10 mEq 10 meq PO BID #180 caps 07/05/24 capsule,extended release memantine 5 mg tablet 5 mg PO DAILY Receiving brain 10/04/24 radiation therapy #70 tabs dexamethasone 4 mg tablet 4 mg PO .COMPLEX #25 tabs 10/14/24 oxycodone 5 mg tablet 5 mg PO DAILY PRN pain #5 tabs 10/14/24 Results & Data (ED) Vital Signs Vital Signs - 24 hr 11/18/24 12:46 11/18/24 12:57 11/18/24 13:09 Temperature 36.7 C Temperature Source Oral Pulse Rate 68 68 Pulse Rate [Right Finger] Respiratory Rate 26 H Respiratory Effort / Characteristics Respiratory Depth Respiratory Pattern Blood Pressure 132/66 Blood Pressure [Right Arm] Blood Pressure Mean 88 Blood Pressure Mean [Right Arm] Pulse Oximetry 86 L Oxygen Delivery Method Nasal Cannula Nasal Cannula Oxygen Flow Rate 3 3 Sepsis Recent Fever Within 48 Hours No Sepsis New/Unexplained Change in Mental Status N/A Sepsis Action Taken by Nursing No Action Required Oxygen Flow Rate - Titration 11/18/24 13:09 11/18/24 13:57 11/18/24 13:58 Temperature Temperature Source Pulse Rate Pulse Rate [Right Finger] 62 Respiratory Rate 16 Respiratory Effort / Characteristics Non-Labored Spontaneous Respiratory Depth Normal Respiratory Pattern Regular Blood Pressure Blood Pressure [Right Arm] 110/47 L Blood Pressure Mean Blood Pressure Mean [Right Arm] 68 Pulse Oximetry 86 L 90 Oxygen Delivery Method Nasal Cannula Oxymask Oxymask Oxygen Flow Rate 3 8 Sepsis Recent Fever Within 48 Hours Sepsis New/Unexplained Change in Mental Status Sepsis Action Taken by Nursing Oxygen Flow Rate - Titration 8 11/18/24 14:12 11/18/24 14:54 11/18/24 14:59 Temperature Temperature Source Pulse Rate Pulse Rate [Right Finger] 59 L Respiratory Rate 16 Respiratory Effort / Characteristics Non-Labored Spontaneous Non-Labored Spontaneous Respiratory Depth Normal Respiratory Pattern Regular Blood Pressure Blood Pressure [Right Arm] 126/63 Blood Pressure Mean Blood Pressure Mean [Right Arm] 84 Pulse Oximetry 94 Oxygen Delivery Method Oxymask Nasal Cannula Oxygen Flow Rate 8 Sepsis Recent Fever Within 48 Hours Sepsis New/Unexplained Change in Mental Status Sepsis Action Taken by Nursing Oxygen Flow Rate - Titration 3 11/18/24 15:23 Temperature Temperature Source Pulse Rate Pulse Rate [Right Finger] 60 Respiratory Rate 20 Respiratory Effort / Characteristics Respiratory Depth Respiratory Pattern Blood Pressure Blood Pressure [Right Arm] Blood Pressure Mean Blood Pressure Mean [Right Arm] Pulse Oximetry 91 Oxygen Delivery Method Room Air Oxygen Flow Rate 3 Sepsis Recent Fever Within 48 Hours Sepsis New/Unexplained Change in Mental Status Sepsis Action Taken by Nursing Oxygen Flow Rate - Titration Laboratory Data 11/18/24 13:25 11/18/24 13:25 Lab Results 11/18/24 11/18/2425 Range/Units 13:25 13:27 13:33 WBC 13.34 H (4.8-10.8) K/ul RBC 3.49 L (4.20-5.40) M/uL Hgb 10.5 L (12.0-16.0) g/dl Hct 32.3 L (37.0-47.0) % MCV 92.6 (80.0-100.0) fL MCH 30.1 (25.0-34.0) pg MCHC 32.5 (32.0-36.0) g/dL RDW Std Deviation 58.3 H (36.4-46.3) fL RDW Coeff of Michael 17.3 H (11.5-14.5) % Plt Count 200 (130-400) K/uL MPV 9.6 (9.4-12.4) fL Immature Gran % (Auto) 0.9 % Neut % (Auto) 94.0 % Lymph % (Auto) 1.3 % Shoshone % (Auto) 3.7 % Eos % (Auto) 0.0 % Baso % (Auto) 0.1 % Neut # (Auto) 12.53 H (1.40-6.50) K/uL Lymph # (Auto) 0.18 L (1.20-3.40) K/uL Shoshone # (Auto) 0.49 (0.11-0.59) K/uL Eos # (Auto) 0.00 (0.00-0.50) K/uL Baso # (Auto) 0.02 (0.00-0.20) K/uL Immature Gran # (Auto) 0.12 (0.01-0.20) K/uL PT 11.0 (9.0-12.0) Seconds INR 1.0 (0.9-1.1) VBG pH 7.49 H (7.36-7.41) VBG pCO2 66 H (38-50) mmHg VBG pO2 35 mmHg VBG HCO3 50 mmol/L VBG O2 Saturation < 60.0 % VBG Base Excess 23.4 mEq/L Sodium 138 (136-145) mmol/L Potassium 3.5 (3.5-5.1) mmol/L Chloride 85 L (98-107) mmol/L Carbon Dioxide > 45 H* (21-32) mmol/L Anion Gap TNP BUN 47 H (6-23) mg/dl Creatinine 0.72 (0.6-1.2) mg/dl Est Cr Clr Drug Dosing 50.7 ml/min eGFR 82.91 BUN/Creatinine Ratio 65.3 H (10-20) Glucose 306 H* (70-99(Fasting)) mg/dl Calcium 8.1 L (8.6-10.3) mg/dl Total Bilirubin 0.7 (0.2-1.0) mg/dl AST 34 (13-39) U/L ALT 47 (7-52) U/L Alkaline Phosphatase 60 (34-104) U/L Troponin I High Sens 24.5 H (0-14) pg/ml B-Natriuretic Peptide 80 (0-100) pg/ml Total Protein 5.2 L (6.0-8.3) gm/dl Albumin 3.1 L (3.4-5.0) gm/dl Globulin 2.1 L (2.5-4.0) gm/dl Albumin/Globulin Ratio 1.5 (0.9-2) Adenovirus (PCR) Not Detected (NotDetected) B. pertussis DNA (PCR) Not Detected (NotDetected) B.parapertussis DNA PCR Not Detected (NotDetected) C. pneumoniae DNA (PCR) Not Detected (NotDetected) Coronavirus OC43 (PCR) Not Detected (NotDetected) Coronavirus HKU1 (PCR) Not Detected (NotDetected) Coronavirus 229E (PCR) Not Detected (NotDetected) SARS-CoV-2 (PCR) DETECTED A (NotDetected) Coronavirus NL63 (PCR) Not Detected (NotDetected) Human Metapneumovir PCR Not Detected (NotDetected) Influenza Type A (PCR) Not Detected (NotDetected) Influenza Type B (PCR) Not Detected (NotDetected) M. pneumoniae (PCR) Not Detected (NotDetected) Parainfluenza 1 (PCR) Not Detected (NotDetected) Parainfluenza 2 (PCR) Not Detected (NotDetected) Parainfluenza 3 (PCR) Not Detected (NotDetected) Parainfluenza 4 (PCR) Not Detected (NotDetected) RSV (PCR) Not Detected (NotDetected) Entero/Rhino (PCR) Not Detected (NotDetected) Administered Medications Discontinued Medications Sodium Chloride (Nss) 500 mls @ 999 mls/hr IV .Q31M ONE Stop: 11/18/24 13:44 Last Admin: 11/18/24 13:57 Dose: 999 mls/hr Documented By: NRB Imaging Data Radiologist's Impression: Chest X-Ray 11/18/24 12:58 XR chest 1V portable CLINICAL HISTORY: Dyspnea TECHNIQUE: Single frontal radiograph of the chest was obtained. Comparison: Comparison is made to chest radiograph 10/21/2024 FINDINGS: Lines and tubes are stable. Calcified aortic knob is seen. Tortuous aorta is seen. Bronchial wall thickening and multifocal airspace opacities are seen. No evidence of pleural effusion or pneumothorax. IMPRESSION: Multifocal airspace opacities may represent atelectasis, pneumonia, and/or aspiration. ACT 112: Negative or not required by law. Electronically signed by: Umesh De Leon M.D. 11/18/2024 1:[address] 11/18/24 13:13 CT head/brain wo con CLINICAL HISTORY: AMS, hx of brain mets. TECHNIQUE: Multiple axial CT images of the head were obtained without contrast. A dose lowering technique was utilized adhering to the principles of ALARA. CT DOSE: 546 COMPARISON: 09/19/2024 FINDINGS: No intracranial hemorrhage seen. No mass effect, midline shift, or hydrocephalus. Stable mild chronic small vessel ischemic changes. No skull fracture. Stable opacification of the lower left mastoid air cells. Otherwise the visualized paranasal sinuses and right mastoid air cells are clear. IMPRESSION: No acute findings. ACT 112: Negative or not required by law. The above report was generated using voice recognition software. It may contain grammatical, syntax or spelling errors. Electronically signed by: Kiel Diaz M.D. 11/18/2024 3:13 PM Chest CTA 11/18/24 13:14 CT angio chest PE protocol CLINICAL HISTORY: hypoxia, hx of lung CA TECHNIQUE: Multidetector row helical CT of the chest was performed with angiographic protocol. Coronal and sagittal reformations were obtained. Coronal and sagittal MIPS were obtained from the axial data set and were submitted for review. Automated dose lowering techniques and/or adjustment according to patient size were utilized for this exam. CT DOSE: 810.5 mGy.cm Comparison: Comparison is made to CT chest 09/05/2024 FINDINGS: Lungs and pleura: Emphysema and biapical scarring are seen. Multifocal airspace opacities are seen. Bronchial wall thickening and mucous plugging is seen. There are multiple masses that have enlarged in the interval. A right prediaphragmatic lesion measures 51 x 29 mm, previously 11 x 8 mm. Multiple paramediastinal lesions are seen measuring up to 27 x 19 mm, previously 11 x 7 mm. A spiculated 7 mm nodule in the left upper lobe (image 167) has decreased in size from prior exam where it measured 12 mm. Heart and pericardium: Heart size is normal. No pericardial effusion. Vessels: No evidence of pulmonary embolism. Postsurgical changes of aortic graft noted. There is an ascending aortic aneurysm measuring up to 43 mm. Mediastinum and samuel: Unremarkable. Chest wall and lower neck: Small thyroid nodules are noted which do not require follow-up by ACR criteria. Abdomen: Unremarkable. Bones: Degenerative changes in the thoracic spine. IMPRESSION: 1. No pulmonary embolus. 2. Multifocal airspace opacities and bronchial wall thickening and mucous plugging are compatible with infectious/inflammatory process. Follow-up to resolution is recommended to exclude underlying nodules. 3. Interval enlargement of multiple right-sided pleural-based masses, the largest measuring 51 x 29 mm in the prediaphragmatic region. Findings are concerning for worsening metastatic disease. 4. Spiculated lesion in the left upper lobe is further decreased in size. ACT 112: Negative or not required by law. Electronically signed by: Umesh De Leon M.D. 11/18/2024 3:18 PM Discharge Plan Visit Data Chief Complaint: Confusion Stated Complaint: CONFUSION, SOB ED Provider: Dexter Ng Discharge Problem: COVID-19 Forms Stand Alone Forms: [employer] Prescriptions Prescriptions: No Action ondansetron HCl 8 mg tablet 8 mg PO Q8H PRN prochlorperazine maleate [Compazine] 10 mg tablet 10 mg PO Q6H PRN magnesium hydroxide [Milk of Magnesia] 400 mg/5 mL suspension 30 ml PO BID PRN diphenhydramine HCl [Benadryl] 25 mg capsule 25 mg PO DAILY PRN apixaban 5 mg tablet 2.5 mg PO BID potassium chloride 10 mEq capsule, extended release 10 meq PO BID Qty: 180 3RF memantine 5 mg tablet 5 mg PO DAILY Qty: 70 0RF Rx Instructions: Written instructions given. Written instructions will be faxed. dexamethasone 4 mg tablet 4 mg PO .COMPLEX Qty: 25 0RF Rx Instructions: Taper dose has been given to the family. Going down by 2 mg/week. oxycodone 5 mg tablet 5 mg PO DAILY PRN (Reason: pain) Qty: 5 0RF Rx Instructions: Take prior to radiation treatments. hydroxyzine HCl 10 mg Tablet 10 mg PO BID PRN (Reason: itching) Qty: 10 0RF fluticasone propionate 50 mcg/actuation [place]is,Suspension 1 spray NA HS Qty: 16 0RF Saline Mist 0.65 % Aerosol,Otis 2 spray NA TID PRN (Reason: dry nasal passages) Qty: 44 0RF guaifenesin [Mucinex] 600 mg Tablet Extended Release 12hr 600 mg PO Q12 Qty: 30 0RF multivitamin Tablet 1 tab PO QAM Qty: 30 0RF amiodarone 200 mg tablet 200 mg PO DAILY Qty: 90 3RF aspirin [Adult Low Dose Aspirin] 81 mg tablet,delayed release (DR/EC) 81 mg PO QAM Qty: 30 0RF buspirone 10 mg tablet 10 mg PO HS Qty: 30 0RF metoprolol tartrate 50 mg tablet 50 mg PO BID Qty: 180 3RF gabapentin 300 mg capsule 600 mg PO BID Qty: 90 0RF Rx Instructions: PER PT'S LIST, "TAKE PRN ALSO". albuterol sulfate 90 mcg/actuation HFA aerosol inhaler 2 puff inhalation QID PRN (Reason: shortness of breath or wheezing) Qty: 8.5 2RF losartan 100 mg tablet 100 mg PO HS Qty: 30 0RF tobramycin-dexamethasone 0.3-0.1 % drops,suspension 1 drp OPL QID Qty: 5 0RF Caltrate 600 plus D 600 mg-20 mcg (800 unit) Tablet,Chewable 1 tab PO HS Qty: 30 0RF furosemide [Lasix] 20 mg tablet 20 mg PO DAILY Qty: 30 0RF Referrals Referrals: Ramon Quesada, [Primary Care Provider] -
--- NOTE | 2024-11-18 13:21 | XRay Report ---
XR chest 1V portable CLINICAL HISTORY: Dyspnea TECHNIQUE: Single frontal radiograph of the chest was obtained. Comparison: Comparison is made to chest radiograph 10/21/2024 FINDINGS: Lines and tubes are stable. Calcified aortic knob is seen. Tortuous aorta is seen. Bronchial wall thi ckening and multifocal airspace opacities are seen. No evidence of pleural effusion or pneumothorax. IMPRESSION: Multifocal airspace opacities may represent atelectasis, pneumonia, and/or aspiration. ACT 112: Negative or not required by law. Electronically signed by: Umesh De Leon M.D. 11/18/2024 1:20 PM
[2024-11-18 13:47] LABS: Base Excess VBG 23.4 mEq/L; HCO3 VBG 50 mmol/L; Oxygen Saturation VBG < 60.0 %; PCO2 VBG 66 mmHg (38-50); PO2 VBG 35 mmHg; pH VBG 7.49 (7.36-7.41)
[2024-11-18 13:50] LABS: Hematocrit (blood only) 32.3 % (37.0-47.0); Hemoglobin 10.5 g/dl (12.0-16.0); Mean Corpuscular Hemoglobin 30.1 pg (25.0-34.0); Mean Corpuscular Hgb Conc 32.5 g/dL (32.0-36.0); Mean Corpuscular Volume 92.6 fL (80.0-100.0); Mean Platelet Volume 9.6 fL (9.4-12.4); Platelet Count 200 K/uL (130-400); RDW Coefficient of Variation 17.3 % (11.5-14.5); RDW Standard Deviation 58.3 fL (36.4-46.3); Red Blood Count 3.49 M/uL (4.20-5.40); White Blood Count 13.34 K/ul (4.8-10.8)
[2024-11-18] MEDS: SODIUM CHLORIDE 0.9% 500 ML IV ONE (13:57)
[2024-11-18 14:09] LABS: Basophils # (auto) 0.02 K/uL (0.00-0.20); Basophils % (auto) 0.1 %; Immature Granulocytes # (auto) 0.12 K/uL (0.01-0.20); Immature Granulocytes % (auto) 0.9 %; Lymphocytes # (auto) 0.18 K/uL (1.20-3.40); Lymphocytes % (auto) 1.3 %; Monocytes # (auto) 0.49 K/uL (0.11-0.59); Monocytes % (auto) 3.7 %; Neutrophils # (auto) 12.53 K/uL (1.40-6.50)
[2024-11-18 14:22] LABS: Alanine Aminotransferase 47 U/L (7-52); Albumin Globulin Ratio 1.5 (0.9-2); Albumin Level 3.1 gm/dl (3.4-5.0); Alkaline Phosphatase 60 U/L (34-104); Aspartate Aminotransferase 34 U/L (13-39); BUN Creatinine Ratio 65.3 (10-20); Bilirubin,Total 0.7 mg/dl (0.2-1.0); Blood Urea Nitrogen 47 mg/dl (6-23); Calcium 8.1 mg/dl (8.6-10.3); Carbon Dioxide > 45 mmol/L (21-32); Chloride 85 mmol/L (98-107); Creatinine Clr Calc Pharmacy 50.7 ml/min; Globulin 2.1 gm/dl (2.5-4.0); Glucose 306 mg/dl (70-99(Fasting)); Potassium 3.5 mmol/L (3.5-5.1); Sodium 138 mmol/L (136-145); Total Protein 5.2 gm/dl (6.0-8.3); Troponin I High Sensitivity 24.5 pg/ml (0-14)
[2024-11-18 14:56] LABS: Adenovirus PCR Not Detected (NotDetected); Bordetella parapertussis PCR Not Detected (NotDetected); Bordetella pertussis PCR Not Detected (NotDetected); Chlamydia pneumoniae PCR Not Detected (NotDetected); Coronavirus 229E PCR Not Detected (NotDetected); Coronavirus CoV-2 (COVID19)PCR DETECTED (NotDetected); Coronavirus HKU1 PCR Not Detected (NotDetected); Coronavirus NL63 PCR Not Detected (NotDetected); Coronavirus OC43PCR Not Detected (NotDetected); Human Metapneumovirus PCR Not Detected (NotDetected); Influenza A PCR Not Detected (NotDetected); Influenza B PCR Not Detected (NotDetected); Mycoplasma pneumoniae PCR Not Detected (NotDetected); Parainfluenza Virus 1 PCR Not Detected (NotDetected); Parainfluenza Virus 2 PCR Not Detected (NotDetected); Parainfluenza Virus 3 PCR Not Detected (NotDetected); Parainfluenza Virus 4 PCR Not Detected (NotDetected); Respiratory Syncytial VirusPCR Not Detected (NotDetected); Rhinovirus/Enterovirus PCR Not Detected (NotDetected)
--- NOTE | 2024-11-18 15:14 | CT Scan Report ---
CT head/brain wo con CLINICAL HISTORY: AMS, hx of brain mets. TECHNIQUE: Multiple axial CT images of the head were obtained without contrast. A dose lowering tech nique was utilized adhering to the principles of ALARA. CT DOSE: 546 COMPARISON: 09/19/2024 FINDINGS: No intracranial hemorrhage seen. No mass effect, midline shift, or hydrocephalus. Stable mi ld chronic small vessel ischemic changes. No skull fracture. Stable opacification of the lower left m astoid air cells. Otherwise the visualized paranasal sinuses and right mastoid air cells are clear. IMPRESSION: No acute findings. ACT 112: Negative or not required by law. The above report was generated using voice recognition software. It may contain grammatical, syntax o r spelling errors. Electronically signed by: Kiel Diaz M.D. 11/18/2024 3:13 PM
--- NOTE | 2024-11-18 15:19 | CT Scan Report ---
CT angio chest PE protocol CLINICAL HISTORY: hypoxia, hx of lung CA TECHNIQUE: Multidetector row helical CT of the chest was performed with angiographic protocol. Kenyon l and sagittal reformations were obtained. Coronal and sagittal MIPS were obtained from the axial carina a set and were submitted for review. Automated dose lowering techniques and/or adjustment according to patient size were utilized for this exam. CT DOSE: 810.5 mGy.cm Comparison: Comparison is made to CT chest 09/05/2024 FINDINGS: Lungs and pleura: Emphysema and biapical scarring are seen. Multifocal airspace opacities are seen. B ronchial wall thickening and mucous plugging is seen. There are multiple masses that have enlarged in the interval. A right prediaphragmatic lesion measure s 51 x 29 mm, previously 11 x 8 mm. Multiple paramediastinal lesions are seen measuring up to 27 x 19 mm, previously 11 x 7 mm. A spiculated 7 mm nodule in the left upper lobe (image 167) has decreased in size from prior exam where it measured 12 mm. Heart and pericardium: Heart size is normal. No pericardial effusion. Vessels: No evidence of pulmonary embolism. Postsurgical changes of aortic graft noted. There is an a scending aortic aneurysm measuring up to 43 mm. Mediastinum and samuel: Unremarkable. Chest wall and lower neck: Small thyroid nodules are noted which do not require follow-up by ACR bladimir van. Abdomen: Unremarkable. Bones: Degenerative changes in the thoracic spine. IMPRESSION: 1. No pulmonary embolus. 2. Multifocal airspace opacities and bronchial wall thickening and mucous plugging are compatible wi th infectious/inflammatory process. Follow-up to resolution is recommended to exclude underlying nodu les. 3. Interval enlargement of multiple right-sided pleural-based masses, the largest measuring 51 x 29 mm in the prediaphragmatic region. Findings are concerning for worsening metastatic disease. 4. Spiculated lesion in the left upper lobe is further decreased in size. ACT 112: Negative or not required by law. Electronically signed by: Umesh De Leon M.D. 11/18/2024 3:18 PM
--- NOTE | 2024-11-18 15:42 | History & Physical Report ---
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 This morning she was noted to be hypoxic on her baseline 2.5L via NC at 76-77% SpO2 with increased work of breathing which prompted the call to EMS. Patient was previously on 2L via NC at baseline however this was recently increased over the past few weeks. Patient initially had to be placed on OxyMask in the ED as she was still hypoxic at 86% SpO2 on 3L via NC upon arrival. She has since been transitioned down to 5L via NC and has been saturating around 90-92% SpO2. Multifocal PNA, COVID Infection Acute on Chronic Respiratory Failure W/ Hypoxia & Hypercapnia: History as per above and HPI. WBC 13k, procalcitonin negative. VSS except for intermittent HTN which has improved. S/p 0.5L NSS in ED. VBG with pH of 7.49 with pCO2 of 66 and HCO3 of 50. Currently saturating in low 90s SpO2 on 5L NC. Respiratory BioFire panel positive for COVID infection. CXR C/F multifocal PNA vs atelectasis. Head CT negative. Chest CTA negative for PE however confirmed multifocal PNA with bronchial wall thickening and mucus plugging. S/p IV Zosyn in ED. Continue coverage with IV Zosyn + po doxycycline. Probiotic added on. Obtain nasal MRSA swab. Attempt to wean O2 back to baseline 2.5L; COVID isolation precautions. Check CRP tomorrow. Remdesivir ordered, repeat LFTs tomorrow. PRN Duonebs as patient tolerates. Blood cultures obtained in ED - follow. Elevated Troponin: Initial troponin 24.5, repeat troponin 20.3; appears chronically elevated. No reported chest pain. EKG reassuring. No need to trend further. EKG with chest pain PRN. Hyperglycemia: BSG 306 on admission. Likely 2/2 daily dexamethasone use. Hgb A1c was 6.2% last admission. Repeat Hgb A1c tomorrow. SSI regimen for now. Continue to monitor BSG ACHS. Appreciate assistance of glycemic pharmacy. Change in Mental Status Metastatic Small Cell Lung Cancer, Brain Metastases: Patient with a prolonged hospital course under our service from February-March 2024. In short, patient was newly diagnosed with metastatic small cell lung cancer during that admission and was started on chemotherapy. She follows with Dr. Lyle of [facility]. Patient previously completed chemotherapy in 05/2024 and radiation therapy to her chest in 07/2024. Patient was found to have brain metastases back in 08/2024 and underwent whole brain radiation therapy which was completed last month shortly before [place]. Family notes that she has had an overall decline in her mentation status since completing whole brain radiation therapy. She has become more confused and disoriented as of recently with waxing/waning alertness levels. She is not currently undergoing any treatments for her cancer. Overall poor oral intake/hydration status with BUN of 47 on admission. Suspect acute metabolic encephalopathy 2/2 active infection, metastatic disease. Chest CTA noted interval enlargement of multiple R-sided pleural-based masses, largest measuring 51 x 29mm in the peridiaphragmatic region, concerning for worsening metastatic disease. Patient is currently on dexamethasone BID (8mg AM and 4mg PM) 2/2 headaches from whole brain radiation therapy - can continue. Her son, Timur, notes that they tried to titrate her dexamethasone dosing down previously however this worsened her mentation status and caused her to become even more confused. Hematology consult for Dr. Lyle pending per Timur's request. Timur would like to continue with inpatient treatment (including ABX and remdesivir) for her PNA and COVID infection. Confirmed with Timur that she is a DNR/DNI. Timur is open for hospice care discussion with Dr. Lyle; there has not yet been a decision made regarding the possible transition to hospice level of care. She was recently started on Namenda - can continue. Continue dronabinol. Need to continue to address overarching GOC conversation as her overall prognosis is relatively poor ISO metastatic disease. Can proceed with easy to chew DM, HH diet. Aspiration precautions. Fall precautions. OOB with assistance. PT/OT evals. HTN, HLD/CAD Valvular Heart Disease & HFpEF: Resting echocardiogram from 02/2024 --> LVEF = 55-60%, mild concentric LVH, mildly dilated LA, moderate MR and mild TR. Continue ASA. BLE edema noted on exam. Initial HTN in ED improved. S/p 0.5L NSS in ED. Continue home meds including Lasix/amlodipine/losartan. Hold additional IVF for now. Atrial Fibrillation: Continue Eliquis, amiodarone and Lopressor. NSR on telemetry in ED. Other Chronic Medical Conditions: Depression - Continue buspirone. Cancer-Related Pain - Continue gabapentin, PRN oxycodone. Hypothyroidism - Continue levothyroxine, check TSH tomorrow. 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 PCP: Ramon Quesada DO Disposition: Admit to PCU/Telemetry for further inpatient evaluation and farzana jorge. Patient's son/POA, Timur, is requesting daily updates. He can be reached at . Patient seen in collaboration with Dr. Tello. Please see addendum. I spent a total of 65 minutes coordinating, documenting, and providing care for this patient excluding time spent in the performance of separately billed services or time spent by another provider/QHP. This included personally reviewing all current laboratories and imaging studies, medical reconciliation, outpatient chart review and discussion with specialists. This chart was completed in part utilizing Speech Voice Recognition Software. Grammatical errors, random word insertions, pronoun errors, and incomplete sentences are an occasional consequence of this system due to software limitatio ns, ambient noise, and hardware issues. Any formal questions or concerns about the content, text, or information contained within the body of this dictation should be directly addressed to the provider for clarification. 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 History obtained from family members at bedside, discussion with the patient's son/POA (Timur) over the phone and associated chart review. Patient unable to provide any additional history due to her mentation status. Patient seen at bedside in the ED with Dr. Tello. Of note, patient with a prolonged hospital course under our service from February- March 2024. In short, patient was newly diagnosed with metastatic small cell lung cancer during that admission and was started on chemotherapy. She follows with Dr. Lyle of [facility]. Patient previously completed chemotherapy in 05/2024 and radiation therapy to her chest in 07/2024. Patient was found to have brain metastases back in 08/2024 and underwent whole brain radiation therapy which was completed last month shortly before . Family notes that she has had an overall decline in her mentation status since completing whole brain radiation therapy. She has become more confused and disoriented with waxing/waning alertness levels. Her grandson mentions she has been sleeping a lot more and appears more fatigued over the past few months. He even noticed that her motor skills have declined. She has unfortunately not been eating or drinking well recently, especially over the past 2 days. This morning she was noted to be hypoxic on her baseline 2.5L via NC at 76-77% SpO2 with increased work of breathing per her grandson, which prompted the call to EMS. Patient was previously on 2L via NC at baseline however this was recently increased over the past few weeks by her son/POA, Timur. Patient initially had to be placed on OxyMask in the ED as she was still hypoxic at 86% SpO2 on 3L via NC upon arrival. She has since been transitioned down to 5L via NC at the time of our evaluation and was saturating around 90-92% SpO2. Confirmed with patient's son/POA, Timur, that she is a DNR/DNI. Timur mentions that she was recently seen by Dr. Lyle last week. She is not currently undergoing any treatments for her cancer. He mentions Dr. Lyle recently started her on levothyroxine. Also started on Namenda. She is also on daily dexametha sone for management of headaches secondary to her brain metastases. There has not been a decision made yet regarding transitioning the patient to hospice care . Saturating on 5L via NC at 92% SpO2 at the time of our evaluation in the ED. Hypertensive at time of our evaluation in the ED at 152/120. She was previously hypotensive at 110/47 upon presentation. S/p 0.5L NSS in the ED. Laboratory evaluation in the ED revealed WBC 13k, negative procalcitonin, chloride 85, BUN 47, glucose 306 and elevated troponin (initial 24.5 --> repeat 20.3); VBG with pH of 7.49 with pCO2 of 66 and HCO3 of 50. Respiratory BioFire panel was positive for COVID infection. CXR concerning for multifocal PNA vs atelectasis. Head CT unremarkable. Chest CTA negative for PE however it confirmed multifocal PNA with bronchial wall thickening and mucus plugging. Chest CTA also noted interval enlargement of multiple R-sided pleural-based masses, largest measuring 51 x 29mm in the peridiaphragmatic region, concerning for worsening metastatic disease. Allergies Allergy/AdvReac Type Severity Reaction Status Date / Time azithromycin Allergy Severe throat Verified 10/10/24 12:09 swelling mivacurium Allergy Severe anaphylaxis Verified 10/10/24 12:09 sulfamethoxazole Allergy Intermediate Hives Verified 10/10/24 12:09 trimethoprim Allergy Intermediate Hives Verified 10/10/24 12:09 penicillin V Allergy Mild arm Verified 10/10/24 12:09 swelling with PCN (tolerates oral PCN/Amoxicillin) macrolides Allergy Unknown Uncoded 10/10/24 12:09 Home Medications Medication Instructions Recorded Confirmed Type albuterol sulfate 90 mcg/actuation 2 puff inhalation QID PRN 04/19/24 11/18/24 Rx aerosol inhaler shortness of breath or wheezing #8.5 grams amiodarone 200 mg tablet 200 mg PO DAILY #90 tabs 04/19/24 11/18/24 Rx calcium 600 mg (as carbonate)-vit 1 tab PO HS #30 tabs 04/19/24 11/18/24 Rx D3 20 mcg (800 unit) chewable tablet (Caltrate plus D) metoprolol tartrate 50 mg tablet 50 mg PO BID #180 tabs 04/19/24 11/18/24 Rx multivitamin 1 tab PO QAM #30 tabs 04/19/24 11/18/24 Rx ondansetron HCl 8 mg tablet 8 mg PO Q8H PRN Nausea/Vomiting 06/02/24 11/18/24 History prochlorperazine maleate 10 mg 10 mg PO Q6H PRN Nausea/Vomiting 06/02/24 11/18/24 History tablet (Compazine) apixaban 5 mg tablet 2.5 mg PO BID 09/19/24 11/18/24 History memantine 5 mg tablet 5 mg PO DAILY Receiving brain 10/04/24 11/18/24 Rx radiation therapy #70 tabs amlodipine 2.5 mg tablet 2.5 mg PO QAM 11/18/24 11/18/24 History aspirin 81 mg chewable tablet 81 mg PO QAM 11/18/24 11/18/24 History (Aspirin Childrens) buspirone 10 mg tablet 10 mg PO QAM 11/18/24 11/18/24 History dexamethasone 4 mg tablet See Rx Instructions .Route .COMPLEX 11/18/24 11/18/24 History dronabinol 2.5 mg capsule 2.5 mg PO BID 11/18/24 11/18/24 History furosemide 20 mg tablet 20 mg PO QAM 11/18/24 11/18/24 History gabapentin 300 mg capsule 300 mg PO BID 11/18/24 11/18/24 History levothyroxine 75 mcg capsule 75 mcg PO QAM 11/18/24 11/18/24 History losartan 100 mg tablet 100 mg PO QAM 11/18/24 11/18/24 History oxycodone 5 mg tablet 5 mg PO Q4H PRN Pain 11/18/24 11/18/24 History potassium chloride 10 mEq 10 meq PO BID 11/18/24 11/18/24 History capsule,extended release Past Med/Surg History Problem List Hyperglycemia Change in mental status Metastatic primary lung cancer Lung cancer metastatic to brain Acute on chronic respiratory failure with hypoxia and hypercapnia COVID Multifocal pneumonia COVID-19 (Acute) Brain metastasis (Chronic) Advanced care planning/counseling discussion Small cell lung cancer (Chronic) Weakness generalized entered into EMR and last edited 03/18/24 Dyspnea and respiratory abnormalities Refractory nausea and vomiting Abnormal CT scan of lung Suspected malignant neoplasm of lung (Acute) Paroxysmal atrial fibrillation Atypical chest pain entered into EMR and last edited 09/25/22 Mild right ventricular systolic dysfunction Medical History Vulvitis entered into EMR and last edited 03/27/24 Rash of vulva duplicate Palliative care by specialist Acute kidney injury entered into EMR and last edited 03/15/24 Hypokalemia entered into EMR and last edited 09/23/22 Stroke-like symptoms not suspected to be TIA per neurology note; head imaging negative for stroke Bilateral pneumonia Atrial fibrillation Pleural effusion entered into EMR and last edited 04/01/24 Lung cancer Myoclonic jerking prior to admission 03/15/24-responded to Ativan per admission note Lymphadenopathy, mediastinal A large right upper lobe paramediastinal mass lesion with mediastinal indication a significantly decreased in size as compared to 03/15/2024. Metastatic right cardiophrenic lymphadenopathy has also decreased from previous. SVC obstruction Acute hypoxic respiratory failure on supplemental oxygen-2L; currently hospitalized at [facility] Slurring of speech Abdominal aortic ectasia Severe mitral regurgitation Moderate left ventricular systolic dysfunction Alveolar emphysema of lung Hypertension Dyslipidemia Mild coronary artery disease normal coronary arteries with mild luminal irregularities per 2011 cardiac cath Moderate to severe mitral regurgitation Severe per 11/2022 ECHO Seasonal allergies Anxiety Chronic back pain Breast cancer right, XRT in 1986 Aortic aneurysm s/p repair (2010), [place] [facility] Osteoporosis, unspecified Post-traumatic arthritis of ankle Surgical History 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 Status post open reduction with internal fixation (ORIF) of fracture of ankle Right ankle ORIF: 06/03/20: Grade view 1, MAC#3, ETT 7 at [facility] Status post thoracic aortic aneurysm repair with a stent + "blow out patch" (2010) [facility] History of cardioversion 10/2022 [facility] S/P ankle arthrodesis H/O decompression of ulnar nerve right History of carpal tunnel release right and left History of cataract surgery bilateral History of tonsillectomy History of appendectomy History of colonoscopy Hx of lumpectomy right breast with radiation History of bilateral tubal ligation H/O lumbar discectomy with hardware/cage S/P hardware removal Left wrist Status post open reduction and internal fixation (ORIF) of fracture Left wrist History of cardiac cath 2011- [place], no stents; f/u dr javed [place] History of open reduction and internal fixation (ORIF) procedure left wrist Family History Mother Heart disease Other No family history of adverse response to anesthesia Social History Smoking Status: Former smoker Tobacco Type: Cigarettes Cigarettes Per Day: QUIT >12 YRS AGO; Second Hand Exposure: No; Do You Dip or Chew Tobacco: No; Hx Alcohol Use: No Hx Substance Use: No Preferred Language: Mongolian Communication Ability: Effective Lace Finisher Required: No Beliefs That Will Affect Care: None marital status: / Current Living Situation: Family Current Living Situation Comment: son, & grandson Feels Safe at Home: Yes Assistive Devices: Brace/Splint/Immobilizer and Cane Review of Systems Review of Systems: Unable to properly obtain secondary to patient's mentation status. She did respond "no" when asked if she was in any pain. Physical Exam Physical Exam: Please refer to Dr. Tello's addendum for physical examination findings. Results & Data Results & Data Vital Signs (Past 12 Hours) Vital Signs Temp Pulse Pulse Resp BP BP Pulse Ox 11/18/24 15:23 60 20 91 11/18/24 14:59 11/18/24 14:54 59 L 16 126/63 94 11/18/24 13:58 62 16 110/47 L 90 11/18/24 13:57 11/18/24 13:09 86 L 11/18/24 13:09 86 L 11/18/24 12:57 68 11/18/24 12:46 36.7 C 68 26 H 132/66 O2 Del Method O2 Flow Rate 11/18/24 15:23 Room Air 3 11/18/24 14:59 Nasal Cannula 11/18/24 14:54 Oxymask 8 11/18/24 13:58 Oxymask 8 11/18/24 13:57 Oxymask 11/18/24 13:09 Nasal Cannula 3 11/18/24 13:09 Nasal Cannula 3 11/18/24 12:57 11/18/24 12:46 Nasal Cannula 3 Laboratory Results Short CBC 11/18/24 Range/Units 13:25 WBC 13.34 H (4.8-10.8) K/ul Hgb 10.5 L (12.0-16.0) g/dl Hct 32.3 L (37.0-47.0) % Plt Count 200 (130-400) K/uL BMP 11/18/24 13:25 Sodium 138 Potassium 3.5 Chloride 85 L Carbon Dioxide > 45 H* BUN 47 H Creatinine 0.72 Glucose 306 H* Calcium 8.1 L Liver Function 11/18/24 Range/Units 13:25 Total Bilirubin 0.7 (0.2-1.0) mg/dl AST 34 (13-39) U/L ALT 47 (7-52) U/L Alkaline Phosphatase 60 (34-104) U/L Albumin 3.1 L (3.4-5.0) gm/dl Diagnostic Findings Chest X-Ray 11/18/24 12:58 XR chest 1V portable CLINICAL HISTORY: Dyspnea TECHNIQUE: Single frontal radiograph of the chest was obtained. Comparison: Comparison is made to chest radiograph 10/21/2024 FINDINGS: Lines and tubes are stable. Calcified aortic knob is seen. Tortuous aorta is seen. Bronchial wall thickening and multifocal airspace opacities are seen. No evidence of pleural effusion or pneumothorax. IMPRESSION: Multifocal airspace opacities may represent atelectasis, pneumonia, and/or aspiration. ACT 112: Negative or not required by law. Electronically signed by: Umesh De Leon M.D. 11/18/2024 1:[address] 11/18/24 13:13 CT head/brain wo con CLINICAL HISTORY: AMS, hx of brain mets. TECHNIQUE: Multiple axial CT images of the head were obtained without contrast. A dose lowering technique was utilized adhering to the principles of ALARA. CT DOSE: 546 COMPARISON: 09/19/2024 FINDINGS: No intracranial hemorrhage seen. No mass effect, midline shift, or hydrocephalus. Stable mild chronic small vessel ischemic changes. No skull fra cture. Stable opacification of the lower left mastoid air cells. Otherwise the visualized paranasal sinuses and right mastoid air cells are clear. IMPRESSION: No acute findings. ACT 112: Negative or not required by law. The above report was generated using voice recognition software. It may contain grammatical, syntax or spelling errors. Electronically signed by: Kiel Diaz M.D. 11/18/2024 3:13 PM Chest CTA 11/18/24 13:14 CT angio chest PE protocol CLINICAL HISTORY: hypoxia, hx of lung CA TECHNIQUE: Multidetector row helical CT of the chest was performed with angiographic protocol. Coronal and sagittal reformations were obtained. Coronal and sagittal MIPS were obtained from the axial data set and were submitted for review. Automated dose lowering techniques and/or adjustment according to patient size were utilized for this exam. CT DOSE: 810.5 mGy.cm Comparison: Comparison is made to CT chest 09/05/2024 FINDINGS: Lungs and pleura: Emphysema and biapical scarring are seen. Multifocal airspace opacities are seen. Bronchial wall thickening and mucous plugging is seen. There are multiple masses that have enlarged in the interval. A right prediaphragmatic lesion measures 51 x 29 mm, previously 11 x 8 mm. Multiple paramediastinal lesions are seen measuring up to 27 x 19 mm, previously 11 x 7 mm. A spiculated 7 mm nodule in the left upper lobe (image 167) has decreased in size from prior exam where it measured 12 mm. Heart and pericardium: Heart size is normal. No pericardial effusion. Vessels: No evidence of pulmonary embolism. Postsurgical changes of aortic graft noted. There is an ascending aortic aneurysm measuring up to 43 mm. Mediastinum and samuel: Unremarkable. Chest wall and lower neck: Small thyroid nodules are noted which do not require follow-up by ACR criteria. Abdomen: Unremarkable. Bones: Degenerative changes in the thoracic spine. IMPRESSION: 1. No pulmonary embolus. 2. Multifocal airspace opacities and bronchial wall thickening and mucous plugging are compatible with infectious/inflammatory process. Follow-up to resolution is recommended to exclude underlying nodules. 3. Interval enlargement of multiple right-sided pleural-based masses, the largest measuring 51 x 29 mm in the prediaphragmatic region. Findings are concerning for worsening metastatic disease. 4. Spiculated lesion in the left upper lobe is further decreased in size. ACT 112: Negative or not required by law. Electronically signed by: Umesh De Leon M.D. 11/18/2024 3:18 PM Medications Administered Discontinued Medications Sodium Chloride (Nss) 500 mls @ 999 mls/hr IV .Q31M ONE Stop: 11/18/24 13:44 Last Admin: 11/18/24 13:57 Dose: 999 mls/hr Documented By: NRB Code Status & VTE Plan Code Status DNR/DNI - No Resuscitation Supervising Physician Co-Signing Physician Notes Patient is an 83-year-old female with complex medical history as per HPI presents with history of worsening confusion associated with shortness of breath and hypoxia. Patient unable to provide any history currently in detail but able to answer simple questions. She denies any chest pain, shortness of breath while at rest. Most of the history is obtained from patient's family at bedside. She is currently undergoing through palliative chemotherapy and radiation therapy for small cell lung cancer with [facility]. Patient was found to be hypoxic this morning and complained of increased shortness of breath and reported significant generalized weakness unable to perform ADLs as per patient's family today. She has ongoing cough which is unchanged. No known history of fever, hemoptysis. Please review HPI for complete details of presentation. I personally reviewed blood work and imaging studies. Chest CT is suggestive of multifocal pneumonia, worsening metastatic disease. Urinalysis currently pending. Serology positive for COVID-19. CT head showed no acute process. Physical Exam: Vitals signs as noted above General Appearance: Thin, frail, chronic ill appearing, no apparent distress Head: normocephalic, Atraumatic Eyes: normal inspection, EOMI Neck: supple, Trachea midline Respiratory/Chest: Decreased breath sounds, CTA, +chemo port, No accessory muscle use Cardiovascular: S1, S2, No murmur Abdomen/GI:Soft, Non tender, Bowel sounds present Extremities/Musculoskeletal:normal inspection, 2+ LE edema, LLE blister in dressing Neurologic/Psych:Drowsy/awakes easily, oriented to person and place while awake, unable to perform complete neurological exam due to patient's mental status Skin: normal color, warm Acute respiratory failure with hypoxia and hypercarbia Multifactorial secondary to COVID-19 infection, multifocal pneumonia, metastatic disease Acute metabolic encephalopathy: Due to metastatic disease, infection Rule out UTI Chronic troponin elevation Empirically started on broad-spectrum antibiotics, remdesivir Continued dexamethasone Supplemental oxygen as needed Plan to consider hospice evaluation if patient's clinical status does not improve as per patient's family's request. Will consult oncology per family's request Monitor LFTs while on remdesivir Poor prognosis I personally interviewed and examined the patient at bedside. I have reviewed the advanced practitioner's documentation on the date of service referred in no te and agree with plan. Patient's care is coordinated with Gerri Aleman PA-C. Please refer to the documentation above for details of patient's presentation and for discussion of other issues. I spent a total [id number] coordinating, documenting, and providing care for this patient excluding time spent in the performance of separately billed services or time spent by another provider/QHP. (6) Change in mental status Altered mental status type: disorientation Qualified Code(s): R41.0 - Disorientation, unspecified (7) Metastatic primary lung cancer Laterality: unspecified laterality Qualified Code(s): C34.90 - Malignant neoplasm of unspecified part of unspecified bronchus or lung
[2024-11-18] MEDS ORDERED: DEXTROSE 50% 50 ML SYRINGE IV PRN (16:56)
[2024-11-18] MEDS ORDERED: GLUCOSE 10 TAB/TUBE PO PRN (16:56)
[2024-11-18] MEDS ORDERED: GLUCOSE 40% GEL 15 GM TUBE PO PRN (16:56)
[2024-11-18] MEDS ORDERED: PHARMACY GLYCEMIC MGMT CONSULT PRN (16:56)
[2024-11-18] MEDS ORDERED: GLUCAGON FOR INJ 1 MG VIAL SQ PRN (16:56)
[2024-11-18] MEDS ORDERED: CARBOHYDRATES FOR HYPOGLYCEMIA PO PRN (16:56)
[2024-11-18] MEDS ORDERED: oxyCODONE HCL IR 5 MG TAB (IMMEDIATE RELEASE) PO PRN (17:05)
[2024-11-18] MEDS: PIPERACILLIN/TAZOBACTAM 4.5 GM/100 ML BAG IV ONE (17:19)
--- NOTE | 2024-11-18 17:26 | Electrocardiogram Report ---
Test Reason : Blood Pressure : */* mmHG Vent. Rate : 61 BPM Atrial Rate : 61 BPM P-R Int : 168 ms QRS Dur : 100 ms QT Int : 498 ms P-R-T Axes : 65 31 106 degrees QTcB Int : 501 ms Normal sinus rhythm Nonspecific ST and T wave abnormality Prolonged QT Abnormal ECG When compared with ECG of 29-Sep-2024 10:53, (unconfirmed) T wave inversion less evident in Anterior leads Confirmed by Tuan Ruiz ([id number]) on 11/18/2024 5:26:33 PM Referred By: REFERRED SELF Confirmed By: Tuan Ruiz
[2024-11-18] MEDS ORDERED: MAGNESIUM HYDROXIDE SUSP 30 ML UDC PO PRN (19:17)
[2024-11-18] MEDS ORDERED: ONDANSETRON INJ 2 MG/ML 2 ML VIAL IV PRN (19:17)
[2024-11-18] MEDS ORDERED: POLYETHYLENE (MIRALAX) 17 GM PACK PO PRN (19:17)
[2024-11-18] MEDS ORDERED: ACETAMINOPHEN 325 MG TAB PO PRN (19:17)
[2024-11-18] MEDS: INSULIN ASPART PER UNIT CHARGE SC SCH (19:24)
--- OUTSIDE RECORDS SUMMARY | 2024-11-18 19:27 | External Medical Summary | Summary of Care ---
Author Name Unknown Organization [facility] Address [address] [place] [address] Phone [phone] Care Team Providers Care Powder Loader Name Role Phone Ramon Quesada DO Primary Care Provider Reason for Visit * Reason Onset Date Comments Medication Refill 10/27/2024 Encounter Details Date Type Department Care Team (Late st Contact Info) Description 10/27/2024 Refill Family Practice [facility] [address] [place] [address] Ramon Quesada DO [address] [place] [address] Chronic pain syndrome; Neuropathy Allergies Active Allergy Reactions Criticality Noted Date Comments Bactrim Hives 04/03/2011 Macrolides And Ketolides 03/16/2000 Mivacurium High 07/20/2018 Other reaction(s): THROAT SWELLS Penicillins 03/16/2000 shots only, rash Azithromycin 11/23/2007 Throat swelling documented as of this encounter (statuses as of 11/01/2024) Medications CALTRATE 600+D 600-400 MG-UNIT PO TABS 1 tab daily Active Multiple Vitamin (ONE-DAILY MULTI VITAMINS) TABS Take by mouth. Active Furosemide 20 MG Oral Tablet (Lasix) Take 1 Tablet by mouth in the morning. 90 Tablet 3 4 Active Albuterol Sulfate HFA 108 (90 Base) MCG/ACT Inhalation Aerosol Solution Inhale 2 Puffs by mouth in the morning and 2 Puffs at noon and 2 Puffs in the evening and 2 Puffs before bedtime. 18 g 5 4 Active Potassium Chloride ER 10 MEQ Oral Tablet Extended Release Take 1 Tablet by mouth in the morning and 1 Tablet before bedtime. 180 Tablet 3 4 Active Amiodarone HCl 200 MG Oral Tablet (Cordarone) Take 1 Tablet by mouth in the morning. 90 Tablet 3 4 Active busPIRone HCl 10 MG Oral Tablet (Buspar)Indicatio ns:Moderate major depression (HCC) Take 1 Tablet by mouth in the morning. 90 Tablet 3 4 Active Aspirin 81 MG Oral Tablet ChewableIndicatio ns:Heart failure with preserved ejection fraction, unspecified HF chronicity (HCC),Atrial fibrillation, unspecified type (HCC) Take 1 Tablet by mouth in the morning. 90 Tablet 3 4 Active amLODIPine Besylate 2.5 MG Oral Tablet (Norvasc) Take 1 Tablet by mouth in the morning. 90 Tablet 3 4 Active Apixaban 2.5 MG Oral Tablet (Eliquis) Take 1 Tablet by mouth in the morning and 1 Tablet before bedtime. 180 Tablet 3 4 Active Metoprolol Tartrate 50 MG Oral Tablet (Lopressor)Indica tions:Atrial fibrillation, unspecified type (HCC) Take 1 Tablet by mouth in the morning and 1 Tablet before bedtime. 180 Tablet 3 4 Active Losartan Potassium 100 MG Oral Tablet (Cozaar)Indicatio ns:Essential hypertension with goal blood pressure less than 140/90 Take 1 Tablet by mouth in the morning. 90 Tablet 3 4 Active Gabapentin 300 MG Oral Capsule (Neurontin)Indica tions:Chronic pain syndrome,Neuropat hy Take 1 Capsule by mouth in the morning and 1 Capsule before bedtime. 180 Capsule 3 5 Active Potassium Chloride ER 10 MEQ Oral Capsule Extended Release Take 1 Capsule by mouth in the morning and 1 Capsule before bedtime. 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 Acute respiratory failure with hypoxia Acquired hypothyroidism 04/24/2024 Atrial fibrillation 10/14/2022 (HFpEF) heart failure with preserved ejection fr action 10/01/2022 Moderate major depression 04/14/2019 Aortic aneurysm without rupture 04/14/2019 Essential hypertension with goal blood pressure less than 140/90 09/30/2016 Other seborrheic keratosis 06/06/2014 History of aortic valve repl acement with bioprosthetic valve 11/11/2010 Thoracic aortic aneurysm 09/02/2010 Tobacco use disorder 04/02/2010 Dyslipidemia, goal LDL below 130 05/11/2007 Osteoporosis 05/11/2007 documented as of this encounter (statuses as of 11/01/2024) Resolved Problems Problem Noted Date Diagnosed Date Resolved Date New onset a-fib 10/01/2022 10/14/2022 Pneumonia due to infectious organism 09/28/2022 10/03/2022 Inflamed seborrheic keratosis 06/06/2014 04/26/2024 Milia 06/06/2014 11/13/2020 Aortic aneurysm 2010 08/24/2019 Malignant neoplasm of female breast 05/11/2007 04/14/2019 ADVANCE DIRECTIVE INFORMATION 02/11/2007 08/29/2024 Overview (02/11/2007): Information given previously. Major depressive disorder 03/26/2001 Overview (08/18/2017): ICD-10 update of inactive term documented as of this encounter (statuses as of 11/01/2024) Immunizations Name Administration Dates Next Due COVID-19 mRNA, LNP-s, No Pre serve, 2-Dose Series (Moderna) 12/29/2020,12/11/2020 COVID-19, mRNA, LNP-s, PF, B ooster, 100mcg/0.5mg (Moderna) 09/14/2021 Pneumococcal Conjugate Vacc, 13 Valent (Prevnar) 10/31/2014 Pneumococcal Polysaccharide PPV23 (Pneumovax) 07/26/2010 Seasonal Influenza Vac., MDV , IM, 0.5 mL (Fluzone) 06/30/2014,07/19/2013,11/15/2012,06/26,08/09/2010 Seasonal Influenza, PF, 6 M & above, IM , (FluLaval or Fluzone) 07/11/2019,07/15/2018,07/20/2017 07/11/2020 Seasonal Influenza, Quadriva lent, No Preserve, IM 08/08/2016,10/17/2015 TDAP (age 10 and older)(Boostrix) 06/03/2019, Varicella Zoster Vaccine (Adult) 08/29/2013 documented as of this encounter Social History Tobacco Use Types Packs/Day Years Used Date Smoking Tobacco: Former Cigarettes 0.5 49 0 10/26/1960 - 10/26/2009 Smokeless Tobacco: Never Comments:started age 20 Alcohol Use Standard Drinks/Week Comments No 0 (1 standard drink = 0.6 oz pur e alcohol) PHQ-2 Answer Date Recorded PHQ-2 Score 0 04/10/2020 Hunger Vital Sign Answer Date Recorded Worried About Running Out of Food in the Last Ye ar Never true 09/06/2019 Ran Out of Food in the Last Year Never true 09/06/2019 Utilities Answer Date Recorded Do you have trouble paying y our heating, water, or electric bill? (Adult - for ages 18 years and over) Not on file 04/12/2024 Is your family able to pay t he heat, water, or electric bill? (Household - for ages 0-17 years) Not on file 04/12/2024 Does your family have access to good internet? (Household - for ages 0-17 years) Not on file 04/12/2024 Social Connections Answer Date Recorded How often do you feel lonely or isolated from those around you? (Adult - for ages 18 years and over) Not on file 04/12/2024 Comments No Sex and Gender Information Value Date Recorded Sex Assigned at Female 11/13/2020 2:19 PM EST Legal Sex Female 5:58 AM EST Gender Identity Female 11/13/2020 2:19 PM EST Sexual Orientation Straight 11/13/2020 2: 19 PM EST documented as of this encounter Functional Status * Are you deaf or do you have serious difficulty hearing? Answer Date of Assessment Author No 09/27/2022 11:00 PM Saji Newman RN * Are you blind or do you have serious difficulty seeing, even when wearing glasses? Answer Date of Assessment Author No 09/27/2022 11:00 PM Saji Newman RN * Do you have serious difficulty walking or climbing stairs? (5 years old or older) Answer Date of Assessment Author No 09/27/2022 11:00 PM Saji Newman RN * Do you have difficulty dressing or bathing? (5 years old or older) Answer Date of Assessment Author No 09/27/2022 11:00 PM Saji Newman RN * Because of a physical, mental, or emotional condition, do you have difficulty doing errands alone such as visiting a doctors office or shopping? (15 years old or older) Answer Date of Assessment Author No 09/27/2022 11:00 PM Saji Newman RN documented as of this encounter Mental Status * Because of a physical, mental, or emotional condition, do you have serious difficulty concentrating, remembering, or making decisions? (5 years old or older) Answer Entry Date Author No 09/27/2022 11:00 PM Saji Newman RN documented in this encounter Miscellaneous Notes * Telephone Encounter - Ramon Quesada DO - 11/01/2024 12:09 PM EST Signed Prescriptions: Disp Refills Gabapentin 300 MG Oral Capsule (Neurontin) 180 Ca*3 Sig: Take 1 Capsule by mouth in the morning and 1 Capsule before bedtime. Authorizing Provider: RAMON QUESADA Potassium Chloride ER 10 MEQ Oral Capsule *180 Ca*3 Sig: Take 1 Capsule by mouth in the morning and 1 Capsule before bedtime. Authorizing Provider: RAMON RICARDO * Telephone Encounter - Zhanna Acevedo LPN - 11/01/2024 11:40 AM EST Did you pend patient's preferred pharmacy and medication before forwarding?yes Pharmacy: [id number] [address] [facility] Pending Prescriptions: Disp Refills Gabapentin 300 MG Oral Capsule (Neurontin)180 Ca*3 Sig: Take 1 Capsule by mouth in the morning and 1 Capsule before bedtime. Potassium Chloride ER 10 MEQ Oral Capsule*180 Ca*3 Sig: Take 1 Capsule by mouth in the morning and 1 Capsule before bedtime. Last Visit: 05/21/2024 (in office), Visit date not found (telemedicine) Next Visit: 11/21/2024 If no future appointments scheduled, and last appointment is greater than a year ago, please schedule patient for a follow-up appointment Last date the medication was ordered: 07/04/24 Is this request for a controlled substance?No Urine Drug Screen:No results found for this or any previous visit. Patient Phone Numbers Labs: Lab Results Component Value Date/Time CREAT 0.6 04/25/2024 06:25 AM CREAT 1.30 (A) 02/09/2024 12:00 AM CREAT 0.6 06/23/2019 06:10 AM POTASSIUM 3.7 04/25/2024 06:25 AM POTASSIUM 3.2 (A) 02/09/2024 12:00 AM POTASSIUM 3.6 06/23/2019 06:10 AM TSH 3.638 02/09/2024 12:00 AM TSH 3.00 04/19/2018 10:54 AM LDL 123 04/30/2023 02:14 PM LDL 136 (H) 04/19/2018 10:54 AM LDL 106 07/29/2013 10:58 AM ALT 22 04/25/2024 06:25 AM ALT 14 01/13/2019 11:12 AM * Telephone Encounter - Maikel Jesus solution professional - 10/27/2024 11:54 AM EST Pt's Son calling to request refill for Gabapentin 300. Informed caller prescription at their pharmacy. Two prescriptions for Gabapentin sent to their pharmacy by two different providers. Caller stating he asked pt's cancer doctor for emergency short supplies. Pt's son also requesting Potassium Chloride ER 10 MEQ Oral Tablet Extended Release be permanently changed to capsules. Pt has difficulty swallowing tablets. Informed caller he may need to reach out to PCP office to reconcile pt's medications as there are multiple prescribers for some. Thank you, Maikel Jesus Needle Setter [facility] 10/27/2024,12:12 PM documented in this encounter Plan of Treatment Upcoming Encounters Date Type Department Care Team (Late st Contact Info) Description 11/21/2024 1:00 PM EST Office Visit [facility] [address] [address] Yolanda Jasmine CRNP [address] [place] [address] 05/25/2025 1:00 PM EDT Office Visit [facility] [address] [address] [address] Ramon Quesada DO [address] [place] [address] Scheduled Procedures Name Priority Associated Diagnoses Date/Ti me ESOPHAGOGASTRODUODENOSCOPY ( EGD), FLEXIBLE, TRANSORAL, ENDOSCOPIC ULTRASOUND Recall Abdominal pain Health Maintenance Due Date Last Done Comments Alpha-1 Antitrypsin 1958 O2 ASSESSMENT COMPLETED IN PAST YEAR FOR COPD 1958 Adult Wellness Visit 09/28/2018 09/28/2017 *BISPHONATE OR OTHER ACCEPTABLE MEDICATION NEEDED FOR OSTEOPOROSIS (REFER TO SMARTSET #1146) 11/15/2020 Depression Monitoring 04/10/2021 04/10/2020 Zoster Vaccines (3 of 3) 10/21/2023 08/26/2023, 01/2013 COVID-19 Vaccine ( season) 2024 07/27/2023, 07/27/2022, 09/14/2021, Additional history exists GFR 04/25/2025 04/25/2024, 04/03/2024, 10/06/2023, Additional history exists Albumin/Creatinine Ratio 04/30/2026 04/30/2023, 03/03/2021 DTap/Tdap Vaccines (3 - Td or Tdap) 06/03/2029 06/03/2019, 07/19/2013 VITAMIN D LEVEL ONCE IN A LIFETIME-USE SMARTSET# [id number] Completed 07/03/2010 DXA Scan Discontinued 09/06/2018, 01/2013, 07/15/2011, Additional history exists Influenza Vaccine (FLU shot) Completed 07/05/2024, 07/10/2021, 08/13/2020, Additional history exists Pneumococcal Vaccine: 50+ Years Completed 07/11/2024, 10/31/2014, 07/26/2010 HPV (Gardasil) Vaccine Aged Out No lo nger eligible based on patient's age to complete this topic Hepatitis B Vaccine Aged Out No longe r eligible based on patient's age to complete this topic MENINGOCOCCAL (MENACTRA/MENVEO) Aged Out No longer eligible based on patient's age to complete this topic documented as of this encounter Medical Devices Implanted Type Area Internet Sourcer Device Identifier Shelf Expiration Date Model / Serial / Lot Sut Steel 6 [id number] - [id number] Implanted:Qty: 6 on 11[place]11[place]2010 [place] [facility] [place]: Chest DO NOT USE [id number] / / [id number] Graft Gelweave 26x12.5 [id number] - [id number] Implanted:Qty: 1 on 11/11/2010 [place] [facility] [place]/A: Aorta [employer] : CARDIO SYS 05/25/2014 [id number] / / [id number] Graft Gelweave 8x15 [id number] - [id number] Implanted:Qty: 1 on 11/11/2010 at OR [facility] N/A: Aorta [employer] : CARDIO SYS 05/25/2015 [id number] / / [id number] documented as of this encounter Visit Diagnoses Diagnosis Chronic pain syndrome Neuropathy Mononeuritis of unspecified site documented in this encounter Advance Directives * Full Code (Latest Code Status on File) Date Activated Date Inactivated Comments 09/27/2022 11:29 PM 10/04/2022 7:28 PM This order reflects the patients wishes and were consensually agreed upon. Question Answer Comments Discussion of Advance Directives occurred with: Patient * Full Code Date Activated Date Inactivated Comments 11/11/2010 1:27 PM 11/16/2010 9:46 PM This order r eflects the patients wishes and were consensually agreed upon. Care Teams Powder Loader Relationship Specialty Start Date End Date Ramon Quesada DO [address] [place] [address] PCP - General Family Medicine 11/16/19 documented as of this encounter
--- OUTSIDE RECORDS SUMMARY | 2024-11-18 19:27 | External Medical Summary | Summary of Care ---
Author Name Unknown Organization [facility] Address [address] [place] [address] Phone [phone] Care Team Providers Care Manager Grant Name Role Phone Ramon Quesada DO Primary Care Provider Reason for Visit * Reason Onset Date Comments Advice 11/14/2024 Encounter Details Date Type Department Care Team (Late st Contact Info) Description 11/14/2024 Telephone Family Practice [facility] [address] [place] [address] Ramon Quesada DO [address] [place] [address] Advice Allergies Active Allergy Reactions Criticality Noted Date Comments Bactrim Hives 04/03/2011 Macrolides And Ketolides 03/16/2000 Mivacurium High 07/20/2018 Other reaction(s): THROAT SWELLS Penicillins 03/16/2000 shots only, rash Azithromycin 11/23/2007 Throat swelling documented as of this encounter (statuses as of 11/14/2024) Medications CALTRATE 600+D 600-400 MG-UNIT PO TABS [...] before bedtime. 180 Capsule 3 5 Active documented as of this encounter (statuses as of 11/14/2024) Active Problems Problem Noted Date Diagnosed Date [...] as of this encounter (statuses as of 11/14/2024) Resolved Problems Problem Noted Date Diagnosed Date [...] as of this encounter (statuses as of 11/14/2024) Immunizations Name Administration Dates Next Due COVID-19 [...] encounter Miscellaneous Notes * Telephone Encounter - Harry Rice LPN - 11/14/2024 3:11 PM EST Eliel Ding calling in today to follow up on previous message. No changes in health from this AM. Omar Ding message has not been addressed at this time. See note below Please advice * Telephone Encounter - Elayne Motta OSA - 11/14/2024 3:04 PM EST Pt son Timur calling back as he was suppose to hear back from a nurse regarding blister on his mom's leg with some swelling. Water blisters are really concerning and he doesn't want to wait a week until her appt. Transferred to nurse line * Telephone Encounter - Harry Rice LPN - 11/14/2024 11:28 AM EST Son Timur calling in today. He states his mothers Left lower leg right above ankle area has small blisters that are starting tobreak open and having clear fluid/drainage x 1 day. Patient denies SOB,Palpitations,chest pain, fevers, or warm to touch, increase pain, swelling (normal swelling), or redness. Taking Meds as ordered. Advised to wash sites with soap and water and dry sterile dressing/chucks under leg to collect drainage. Next apt- 11/21/2024 Son is asking if Lasix needs increased? Or further advice. Call Son Timur with advice or orders. Please advice. * Telephone Encounter - Nikky Richards OSA - 11/14/2024 11:28 AM EST Pt's son Timur calling in asking to speak to a nurse. documented in this encounter Plan of Treatment Upcoming Encounters Date Type Department Care Team (Late st Contact Info) Description 11/21/2024 1:00 PM EST Office Visit [facility] [address] [address] Yolanda Jasmine CRNP [address] [address] 05/25/2025 1:00 PM EDT Office Visit [facility] [address] [address] Ramon Quesada DO [address] [address] Scheduled Procedures Name Priority Associated Diagnoses Date/Ti [...] 09/14/2021, Additional history exists GFR 04/25/2025 04/25/2024, 01/24, 10/06/2023, Additional history exists Albumin/Creatinine Ratio 04/30/2026 04/30/2023, 12/25 DTap/Tdap Vaccines (3 - Td or Tdap) 06/03/2029 06/03/2019, 07/19/2013 VITAMIN D LEVEL ONCE IN A LIFETIME-USE SMARTSET# [id number] Completed 07/03/2010 DXA Scan Discontinued 09/06/2018, 01/2013, [...] this encounter Medical Devices Implanted Type Area Crimping Press Operator Device Identifier Shelf Expiration Date Model / Serial / Lot Sut Steel 6 M654g - [id number] Implanted:Qty: 6 on 11/11/2010 at OR [facility] [place] N/A: Chest DO NOT USE M654G / / [id number] Graft Gelweave 26x12.5 [id number] - [id number] Implanted:Qty: 1 on 11/11/2010 at OR [facility] [place] N/A: Aorta [employer] : CARDIO SYS 05/25/2014 [id number] / / [id number] Graft Gelweave 8x15 [id number] - [id number] Implanted:Qty: 1 on 11/11/2010 at OR [facility] [place] N/A: Aorta [employer] : CARDIO SYS 05/25/2015 [id number] / / [id number] documented as of this encounter Advance Directives * Full Code [...] and were consensually agreed upon. Care Teams Manager Grant Relationship Specialty Start Date End Date Ramon Quesada DO [address] [place] [address] PCP - General Family Medicine 11/16/19 documented as of this encounter
--- OUTSIDE RECORDS SUMMARY | 2024-11-18 19:27 | External Medical Summary | Summary of Care ---
Author Name Unknown Organization [facility] Address [address] [place] [address] Phone [phone] Care Team Providers Care System Operator Name Role Phone Ramon Quesada DO Primary Care Provider Reason for Referral * Evaluate & Treat - Unlimited Visits (Within 10 days (routine)) - Authorized Specialty Diagnoses / Procedures Referred By Daisy alan Referred To Contact Wound Care Diagnoses Open leg wound, unspecified laterality, sequela Ramon Quesada DO [address] [place] [address] Phone: tel: fax: Referral ID Status Reason Start Date Expiration Date Visits Requested Visits Authorized [id number] Authorized Specialty Services Required 11/15/[phone] Question Answer Referral Priority Within 10 days (routine) Where should this appointment be scheduled? [facility] Where is the wound? Below the knee Comments Assess for: Hx of wound healing problem and Lower Extremity Wound (refer to Podiatry/Ortho) Reason for Visit * Reason Onset Date Comments Advice 11/14/2024 Encounter Details Date Type Department Care Team (Late st Contact Info) Description 11/14/2024 Telephone Family Practice [facility] [address] [place] [address] Ramon Quesada DO [address] [place] [address] Advice Allergies Active Allergy Reactions Criticality Noted Date Comments Bactrim Hives 04/03/2011 Macrolides And Ketolides 03/16/2000 Mivacurium High 07/20/2018 Other reaction(s): THROAT SWELLS Penicillins 03/16/2000 shots only, rash Azithromycin 11/23/2007 Throat swelling documented as of this encounter (statuses as of 11/15/2024) Medications CALTRATE 600+D 600-400 MG-UNIT PO TABS [...] as of this encounter (statuses as of 11/15/2024) Active Problems Problem Noted Date Diagnosed Date [...] as of this encounter (statuses as of 11/15/2024) Resolved Problems Problem Noted Date Diagnosed Date [...] as of this encounter (statuses as of 11/15/2024) Immunizations Name Administration Dates Next Due COVID-19 [...] documented in this encounter Miscellaneous Notes * Addendum Note - Ramon Quesada DO - 11/15/2024 10:45 AM ESTAddended by: RAMON QUESADA on: 11/15/2024 10:45 AM Modules accepted: Orders * Telephone Encounter - Ramon Quesada DO - 11/15/2024 10:42 AM EST Agree with advice given regarding care of area/skin Ok to increase lasix to 40mg daily for now and monitor If any signs of cellulitis occur would advise ER Also advise monitoring daily weights Wound care consult sent as well which would be good for follow up * Telephone Encounter - Harry Rice LPN - 11/14/2024 3:11 PM EST Eliel Ding calling in today to follow up on previous message. No changes in health from this AM. Advised Timur message has not been addressed at this [...] Rice LPN - 11/14/2024 11:28 AM EST Eliel Ding calling in today. He states his mothers [...] Description 11/21/2024 1:00 PM EST Office Visit [facility] [address] [place] [address] Yolanda Jasmine CRNP [address] [place] [address] 05/25/2025 1:00 PM EDT Office Visit [facility] [address] [place] [address] Ramon Quesada DO [address] [place] [address] Scheduled Procedures Name Priority Associated Diagnoses Date/Ti me ESOPHAGOGASTRODUODENOSCOPY ( EGD), FLEXIBLE, TRANSORAL, ENDOSCOPIC ULTRASOUND Recall Abdominal pain Scheduled Referrals Name Type Priority Associated Diagnoses Orde r Schedule WOUND CARE REFERRAL OP Referral Within 10 days (routine) Open leg wound, unspecified laterality, sequela Ordered: 11/15/2024 Health Maintenance Due Date Last Done Comments [...] Additional history exists Albumin/Creatinine Ratio 04/30/2026 04/30/2023, 03/2 03/2021 DTap/Tdap Vaccines (3 - Td or Tdap) 06/03/2029 06/03/2019, 07/19/2013 VITAMIN D LEVEL ONCE IN A LIFETIME-USE SMARTSET# [id number] Completed 07/03/2010 DXA Scan Discontinued 09/06/2018, 01/2013, [...] this encounter Medical Devices Implanted Type Area Evp [employer] Experience Strategy Device Identifier Shelf Expiration Date Model / Serial / Lot Sut Steel 6 [id number] - [id number] Implanted:Qty: 6 on 11/11/2010 at OR [facility] [place] N/A: Chest DO NOT USE [id number] / / [id number] Graft Gelweave 26x12.5 [id number] - [id number] Implanted:Qty: 1 on 11/11/2010 at OR [facility] [place] N/A: Aorta [employer] : CARDIO SYS 05/25/2014 [id number] / / [id number] Graft Gelweave 8x15 [id number] - [id number] Implanted:Qty: 1 on 11/11/2010 at OR [facility] [place] N/A: Aorta [employer] : CARDIO SYS 05/25/2015 [id number] / / [id number] documented as of this encounter Visit Diagnoses Diagnosis Open leg wound, unspecified laterality, sequela- Primary documented in this encounter Advance Directives * [...] and were consensually agreed upon. Care Teams System Operator Relationship Specialty Start Date End Date Ramon Quesada DO [address] [place] [address] PCP - General Family Medicine 11/16/19 documented as of this encounter
[2024-11-18] MEDS: REMDESIVIR 200 MG in SODIUM CHLORIDE 0.9% 210 ML IV STA (20:14)
[2024-11-18] MEDS ORDERED: hydrALAZINE HCL 20 MG/ML VIAL IV PRN (20:29)
[2024-11-18] MEDS ORDERED: METOPROLOL TARTRATE 1 MG/ML VIAL IV PRN (20:29)
[2024-11-18] MEDS: droNABinol 2.5 MG CAP PO SCH (20:34)
[2024-11-18] MEDS: POTASSIUM CHLORIDE 10 MEQ TABCR PO SCH (20:34)
[2024-11-18] MEDS: METOPROLOL TARTRATE 50 MG TAB PO SCH (20:34)
[2024-11-18] MEDS: dexAMETHasone 4 MG TAB PO SCH (20:34)
[2024-11-18] MEDS: DOXYCYCLINE HYCLATE 100 MG CAP PO SCH (20:34)
[2024-11-18] MEDS: CALCIUM 600MG + VIT D 400 IU TAB PO SCH (20:34)
[2024-11-18] MEDS: GABAPENTIN 300 MG CAP PO SCH (20:34)
[2024-11-18] MEDS: APIXABAN 2.5 MG TAB PO SCH (20:34)
[2024-11-18] MEDS: ADVANCED PROBIOTIC 625 MG CAPSULE PO ONE (20:34)
[2024-11-18] MEDS: PIPERACILLIN/TAZOBACTAM 4.5 GM/100 ML BAG IV SCH (21:57)
--- OUTSIDE RECORDS SUMMARY | 2024-11-18 23:46 | External Medical Summary | Summary of Care ---
Author Name Unknown Organization [facility] Address [address] [place] [address] Phone [phone] Care Team Providers Care City Director Name Role Phone Ramon Quesada DO Primary Care Provider Reason for Referral * Evaluate & Treat - Unlimited Visits (Within 10 days (routine)) - Authorized Specialty Diagnoses / Procedures Referred By Daisy alan Referred To Contact Wound Care Diagnoses Open leg wound, unspecified laterality, sequela Ramon Quesada DO [address] [place] [address] Phone: tel: fax: Referral ID Status Reason Start Date Expiration Date Visits Requested Visits Authorized [id number] Authorized Specialty Services Required 11/15/[phone] [...] Contact Info) Description 11/14/2024 Telephone Family Practice [facility] [address] [place] [address] Ramon Quesada DO [address] [place] [address] Advice Allergies Active Allergy Reactions Criticality Noted [...] encounter Miscellaneous Notes * Telephone Encounter - Caitlyn Kendall CMA - 11/15/2024 12:36 PM EST Called and spoke with pt. Gave pt messages from Dr. Quesada. Pt was irritated on the phone, was offended by the idea of a wound care consult, "as if I can't take care of her myself". Explained that wound care consult was just in case he was worried and wanted someone to look at the wound. Advised sonto take pt to ER if any signs of cellulitis, son again was offended and emphasized he is doing dress ing changes/cleaning as advised and there is no infection. Son verbalized understanding of the instructions from Dr. Quesada and said he will wait until pt appt on Thursday to have legs looked at since there is no pain or infection currently. Instructed pt to call back with any questions. * Addendum Note - Ramon Quesada DO [...] Rice LPN - 11/14/2024 3:11 PM EST Son Timur calling in today to follow up on [...] Description 11/21/2024 1:00 PM EST Office Visit [facility] [address] [facility] [place] [address] Yolanda Jasmine CRNP [address] [place] [address] 05/25/2025 1:00 PM EDT Office Visit [facility] [address] [place] [address] Ramon Quesada, [address] [place] [address] Scheduled Procedures Name Priority Associated Diagnoses Date/Ti [...] 09/14/2021, Additional history exists GFR 04/25/2025 04/25/2024, 0403/2024, 10/06/2023, Additional history exists Albumin/Creatinine Ratio 04/30/2026 04/30/2023, 03/03/2021 DTap/Tdap Vaccines (3 - Td or Tdap) 06/03/2029 06/03/2019, 07/19/2013 VITAMIN D LEVEL ONCE IN A LIFETIME-USE SMARTSET# [id number] Completed 07/03/2010 DXA Scan Discontinued 09/06/2018, 01/2013, [...] this encounter Medical Devices Implanted Type Area Cargo Vessel Stewardess Device Identifier Shelf Expiration Date Model / Serial / Lot Sut Steel 6 M654g - [id number] Implanted:Qty: 6 on 11/11/2010 at [place] [facility] [place] N/A: Chest DO NOT USE M654G / / [id number] Graft Gelweave 26x12.5 [id number] - [id number] Implanted:Qty: 1 on 11/11/2010 at [place] [facility] [place] N/A: Aorta [employer] : CARDIO SYS 05/25/2014 [id number] / / [id number] Graft Gelweave 8x15 [id number] - [id number] Implanted:Qty: 1 on 11/11/2010 at [place] [facility] [place] N/A: Aorta [employer] : CARDIO SYS 05/25/2015 [id number] / / [id number] documented as of this encounter Visit Diagnoses [...] and were consensually agreed upon. Care Teams City Director Relationship Specialty Start Date End Date Ramon Quesada DO [address] [place] [address] PCP - General Family Medicine 11/16/19 documented as of this encounter
[2024-11-19] MEDS: INSULIN ASPART PER UNIT CHARGE SC SCH (00:30)
[2024-11-19] MEDS ORDERED: OLANZapine 10 MG/2.1 ML SDV IM PRN (02:39)
[2024-11-19] MEDS: LEVOTHYROXINE SODIUM 75 MCG TABLET PO SCH (05:31)
[2024-11-19 06:16] LABS: Base Excess VBG 24.5 mEq/L; HCO3 VBG 53 mmol/L; Oxygen Saturation VBG 61.1 %; PCO2 VBG 71 mmHg (38-50); PO2 VBG 34 mmHg; pH VBG 7.48 (7.36-7.41)
[2024-11-19 06:26] LABS: Hematocrit (blood only) 30.7 % (37.0-47.0); Mean Corpuscular Hemoglobin 30.3 pg (25.0-34.0); Mean Corpuscular Hgb Conc 32.6 g/dL (32.0-36.0); Mean Platelet Volume 9.7 fL (9.4-12.4); Platelet Count 179 K/uL (130-400); RDW Coefficient of Variation 17.4 % (11.5-14.5); RDW Standard Deviation 59.1 fL (36.4-46.3); White Blood Count 10.98 K/ul (4.8-10.8)
[2024-11-19 06:47] LABS: Alanine Aminotransferase 50 U/L (7-52); Alkaline Phosphatase 60 U/L (34-104); Aspartate Aminotransferase 26 U/L (13-39); BUN Creatinine Ratio 67.3 (10-20); Bilirubin Direct 0.2 mg/dl (0-0.2); Bilirubin,Total 0.7 mg/dl (0.2-1.0); Blood Urea Nitrogen 37 mg/dl (6-23); C Reactive Protein 1.26 mg/dl (0-0.5); Calcium 8.4 mg/dl (8.6-10.3); Carbon Dioxide > 45 mmol/L (21-32); Chloride 89 mmol/L (98-107); Creatinine Clr Calc Pharmacy 61.5 ml/min; Glucose 152 mg/dl (70-99(Fasting)); Magnesium 1.9 mg/dl (1.7-2.4); Phosphorus 2.7 mg/dl (2.5-4.9); Potassium 3.3 mmol/L (3.5-5.1); Sodium 140 mmol/L (136-145); Total Protein 4.8 gm/dl (6.0-8.3)
[2024-11-19 06:54] LABS: Basophils # (auto) 0.01 K/uL (0.00-0.20); Basophils % (auto) 0.1 %; Immature Granulocytes # (auto) 0.06 K/uL (0.01-0.20); Immature Granulocytes % (auto) 0.5 %; Lymphocytes # (auto) 0.25 K/uL (1.20-3.40); Lymphocytes % (auto) 2.3 %; Monocytes # (auto) 0.37 K/uL (0.11-0.59); Monocytes % (auto) 3.4 %; Neutrophils # (auto) 10.29 K/uL (1.40-6.50); Neutrophils % (auto) 93.7 %
[2024-11-19 07:00] LABS: Thyroid Stimulating Hormone 17.477 uIu/ml (0.300-4.500)
[2024-11-19 07:21] LABS: Estimated Average Glucose 166 mg/dl; Hemoglobin A1C 7.4 % (4.5-5.6)
--- NOTE | 2024-11-19 07:32 | Oncology Consultation ---
Date of Consultation November 19, 2024 Assessment & Plan (1) Change in mental status: (2) Metastatic primary lung cancer: (3) Lung cancer metastatic to brain: (4) Acute on chronic respiratory failure with hypoxia and hypercapnia: Plan Imaging suggestive of disease progression. Current performance status very poor and would not be able to tolerate further systemic therapy and so would recommend Consideration for supportive care/hospice. This was discussed with patient who was too weak to respond to recommendation for supportive care/hospice. I discussed with her son /NOK who agreed that he would not want his mother to receive more systemic therapy given poor PS. He was agreeable for hospice evaluation. History of Present Illness Reason for Consultation: Small cell lung cancer Attending Physician: Jamil Tello MD History of Present Illness 83-year-old female with history of stage IV small cell lung cancer initially diagnosed around Feb, 2024. She had a good response to treatment with carboplatin/etoposide and was subsequently transitioned to maintenance immunotherapy with durvalumab in July,. She was subsequently diagnosed with brain metastasis for which she received whole brain radiation treatment. Patient was admitted to [facility] yesterday with altered mental status, declining performance status. CT chest revealed no PE, multifocal airspace opacities and bronchial wall thickening and mucous plugging compatible with infectious/inflammatory process, interval enlargement of multiple right-sided pleural-based masses with largest measuring 51 x 29 mm in the prediaphragmatic region. Respiratory panel obtained in the ER revealed COVID-19 infection. She received remdesivir and is on her IV antibiotics.She currently requires 11 L/min supplemental O2 via OxyMask Allergies Allergy/AdvReac Type Severity Reaction Status Date / Time azithromycin Allergy Severe throat Verified 10/10/24 12:09 swelling mivacurium Allergy Severe anaphylaxis Verified 10/10/24 12:09 sulfamethoxazole Allergy Intermediate Hives Verified 10/10/24 12:09 trimethoprim Allergy Intermediate Hives Verified 10/10/24 12:09 penicillin V Allergy Mild arm Verified 10/10/24 12:09 swelling with PCN (tolerates oral PCN/Amoxicillin) Macrolide Antibiotics Allergy Unknown Unknown Verified 11/19/24 08:23 Home Medications Medication Instructions Recorded Confirmed Type albuterol sulfate 90 mcg/actuation 2 puff inhalation QID PRN 04/19/24 11/18/24 Rx aerosol inhaler shortness of breath or wheezing #8.5 grams amiodarone 200 mg tablet 200 mg PO DAILY #90 tabs 04/19/24 11/18/24 Rx calcium 600 mg (as carbonate)-vit 1 tab PO HS #30 tabs 04/19/24 11/18/24 Rx D3 20 mcg (800 unit) chewable tablet (Caltrate plus D) metoprolol tartrate 50 mg tablet 50 mg PO BID #180 tabs 04/19/24 11/18/24 Rx multivitamin 1 tab PO QAM #30 tabs 04/19/24 11/18/24 Rx ondansetron HCl 8 mg tablet 8 mg PO Q8H PRN Nausea/Vomiting 06/02/24 11/18/24 History prochlorperazine maleate 10 mg 10 mg PO Q6H PRN Nausea/Vomiting 06/02/24 11/18/24 History tablet (Compazine) apixaban 5 mg tablet 2.5 mg PO BID 09/19/24 11/18/24 History memantine 5 mg tablet 5 mg PO DAILY Receiving brain 10/04/24 11/18/24 Rx radiation therapy #70 tabs amlodipine 2.5 mg tablet 2.5 mg PO QAM 11/18/24 11/18/24 History aspirin 81 mg chewable tablet 81 mg PO QAM 11/18/24 11/18/24 History (Aspirin Childrens) buspirone 10 mg tablet 10 mg PO QAM 11/18/24 11/18/24 History dexamethasone 4 mg tablet See Rx Instructions .Route .COMPLEX 11/18/24 11/18/24 History dronabinol 2.5 mg capsule 2.5 mg PO BID 11/18/24 11/18/24 History furosemide 20 mg tablet 20 mg PO QAM 11/18/24 11/18/24 History gabapentin 300 mg capsule 300 mg PO BID 11/18/24 11/18/24 History levothyroxine 75 mcg capsule 75 mcg PO QAM 11/18/24 11/18/24 History losartan 100 mg tablet 100 mg PO QAM 11/18/24 11/18/24 History oxycodone 5 mg tablet 5 mg PO Q4H PRN Pain 11/18/24 11/18/24 History potassium chloride 10 mEq 10 meq PO BID 11/18/24 11/18/24 History capsule,extended release Patient History Medical History Vulvitis entered into EMR and last edited 03/27/24 Rash of vulva duplicate Palliative care by specialist Acute kidney injury entered into EMR and last edited 03/15/24 Hypokalemia entered into EMR and last edited 09/23/22 Stroke-like symptoms not suspected to be TIA per neurology note; head imaging negative for stroke Bilateral pneumonia Atrial fibrillation Pleural effusion entered into EMR and last edited 04/01/24 Lung cancer Myoclonic jerking prior to admission 03/15/24-responded to Ativan per admission note Lymphadenopathy, mediastinal A large right upper lobe paramediastinal mass lesion with mediastinal indication a significantly decreased in size as compared to 03/15/2024. Metastatic right cardiophrenic lymphadenopathy has also decreased from previous. SVC obstruction Acute hypoxic respiratory failure on supplemental oxygen-2L; currently hospitalized at [facility] [place] Slurring of speech Abdominal aortic ectasia Severe mitral regurgitation Moderate left ventricular systolic dysfunction Alveolar emphysema of lung Hypertension Dyslipidemia Mild coronary artery disease normal coronary arteries with mild luminal irregularities per 2011 cardiac cath Moderate to severe mitral regurgitation Severe per 11/2022 ECHO Seasonal allergies Anxiety Chronic back pain Breast cancer right, XRT in 1986 Aortic aneurysm s/p repair (2010), follows with [facility] cardio Osteoporosis, unspecified Post-traumatic arthritis of ankle Surgical History 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 Status post open reduction with internal fixation (ORIF) of fracture of ankle Right ankle ORIF: 06/03/20: Grade view 1, MAC#3, ETT 7 at [facility] [place] Status post thoracic aortic aneurysm repair with a stent + "blow out patch" (2010) Delphine Loving History of cardioversion 10/2022 [facility] [place] S/P ankle arthrodesis H/O decompression of ulnar nerve right History of carpal tunnel release right and left History of cataract surgery bilateral History of tonsillectomy History of appendectomy History of colonoscopy Hx of lumpectomy right breast with radiation History of bilateral tubal ligation H/O lumbar discectomy with hardware/cage S/P hardware removal Left wrist Status post open reduction and internal fixation (ORIF) of fracture Left wrist History of cardiac cath 2011- Fabienne, no stents; f/u meño allred History of open reduction and internal fixation (ORIF) procedure left wrist Family History Mother Heart disease Other No family history of adverse response to anesthesia Social History Smoking Status: Former smoker Tobacco Type: Cigarettes Cigarettes Per Day: QUIT >12 YRS AGO; Smoking End Date: 10-15 years ago; Second Hand Exposure: No; Do You Dip or Chew Tobacco: No; Tobacco Cessation Education Requested by Patient: No Hx Alcohol Use: No Hx Substance Use: No Preferred Language: Montenegrin Communication Ability: Impaired Communication Ability Comment: glasses, forgetful Digital Strategy Director Required: No Beliefs That Will Affect Care: None marital status: / Current Living Situation: Family Current Living Situation Comment: son, & grandson Other Information That Helps Us Care for You: No Feels Safe at Home: Yes Safety Concerns: Feels Safe At This Time Assistive Devices: Glasses Results & Data Vital Signs (Past 12 Hours) Vital Signs Temp Pulse Pulse Resp BP Pulse Ox O2 Del Method 11/19/24 02:34 36.5 C 69 24 150/97 H 94 Oxymask 11/19/24 00:00 62 11/18/24 23:52 36.6 C 64 18 150/62 H 92 Room Air 11/18/24 22:10 94 Nasal Cannula 11/18/24 20:50 36.6 C 68 22 148/87 H 95 Nasal Cannula O2 Flow Rate 11/19/24 02:34 5 11/19/24 00:00 11/18/24 23:52 11/18/24 22:10 5 11/18/24 20:50 6 (1) Change in mental status Altered mental status type: disorientation Qualified Code(s): R41.0 - Disorientation, unspecified (2) Metastatic primary lung cancer Laterality: unspecified laterality Qualified Code(s): C34.90 - Malignant neoplasm of unspecified part of unspecified bronchus or lung
[2024-11-19 07:44] LABS: T4 Free Thyroxine 0.45 ng/dl (0.61-1.60)
--- NOTE | 2024-11-19 08:16 | Hospitalist Progress Note ---
Date of Service November 19, 2024 Assessment & Plan (1) COVID: (2) Multifocal pneumonia: (3) Acute on chronic respiratory failure with hypoxia and hypercapnia: (4) Elevated troponin: (5) Hyperglycemia: (6) Change in mental status: (7) Metastatic primary lung cancer: Plan Sheri Camacho is an 83y/o F with PMHx significant for metastatic small cell lung cancer to the brain s/p chemotherapy+radiation, SVC syndrome, COPD, chronic hypoxemic respiratory failure [on 2.5L NC at baseline], tobacco use disorder, ascending aortic aneurysm dissection s/p repair, nonobstructive CAD, HTN, HLD, severe MR, moderate LV systolic dysfunction, mild RV systolic dysfunction, HFpEF [EF=55-60%; 02/2024], AV replacement, atrial fibrillation on Eliquis, osteoporosis, CALVIN and depression who presented to the ED via EMS on 11/18/2024 secondary to confusion and SOB. This morning she was noted to be hypoxic on her baseline 2.5L via NC at 76-77% SpO2 with increased work of breathing which prompted the call to EMS. Patient was previously on 2L via NC at baseline however this was recently increased over the past few weeks. Patient initially had to be placed on OxyMask in the ED as she was still hypoxic at 86% SpO2 on 3L via NC upon arrival. Multifocal PNA, COVID Infection Acute on Chronic Respiratory Failure W/ Hypoxia & Hypercapnia: History as per above and HPI. WBC 13k, procalcitonin negative. VSS except for intermittent HTN which has improved. S/p 0.5L NSS in ED. VBG suggestive of uncompensated respiratory alkalosis. pH of 7.49 with pCO2 of 66 and HCO3 of 50. Currently saturating low 90's on 15L oxymask [employer] panel (+) COVID. Repeat CXR today; There is stable faint reticular and patchy opacity at the left lung. No pleural effusion or pneumothorax Head CT negative. Chest CTA negative for PE however confirmed multifocal PNA with bronchial wall thickening and mucus plugging. IV Zosyn + po doxycycline, converted to IV Doxy as avoiding PO. Probiotic added on. Obtain nasal MRSA swab. Attempt to wean O2 back to baseline 2.5L; COVID isolation precautions. Remdesivir ordered. No transaminitis. Patient sounds wheezy on exam; hypertonic nebulizers ordered. Lasix 20 mg IV ordered; will continue IV daily PRN Duonebs as patient tolerates. Decadron 8 mg daily Blood cultures ordered and pending If decline, transition to STAINED GLASS GLAZIER Elevated Troponin: Initial troponin 24.5, repeat troponin 20.3; appears chronically elevated. No reported chest pain. EKG reassuring. No need to trend further. EKG with chest pain PRN. Hyperglycemia: BSG 306 on admission. Likely 2/2 daily dexamethasone use. Hgb A1c was 6.2% last admission. Repeat Hgb A1c 7.4; likely secondary to steroid. SSI regimen for now. BSG ACHS. Appreciate assistance of glycemic pharmacy. Change in Mental Status Metastatic Small Cell Lung Cancer, Brain Metastases: Patient with a prolonged hospital course under our service from February-March 2024. In short, patient was newly diagnosed with metastatic small cell lung cancer during that admission and was started on chemotherapy. She follows with Dr. Lyle of [facility]. Patient previously completed chemotherapy in 05/2024 and radiation therapy to her chest in 07/2024. Patient was found to have brain metastases back in 08/2024 and underwent whole brain radiation therapy which was completed last month shortly before [place]. Family notes that she has had an overall decline in her mentation status since completing whole brain radiation therapy. She has become more confused and disoriented as of recently with waxing/waning alertness levels. She is not currently undergoing any treatments for her cancer. Overall poor oral intake/hydration status with BUN of [address] Lyle saw patient today and suggests that no further chemotherapy is recommended and she supports a transition to hospice/comfort measures. Per Dr. Lyle, goal of pt son is for pt to return home with hospice support. Patient will require less oxygen use in order to be supported at home; typically 10L oxymask is the limit that can be supported out of hospital. Suspect acute metabolic encephalopathy 2/2 active infection, metastatic disease. Chest CTA noted interval enlargement of multiple R-sided pleural-based masses, largest measuring 51 x 29mm in the peridiaphragmatic region, concerning for worsening metastatic disease. Patient is currently on dexamethasone BID (8mg AM and 4mg PM) 2/2 headaches from whole brain radiation therapy - can continue. Her son, Timur, notes that they tried to titrate her dexamethasone dosing down previously however this worsened her mentation status and caused her to become even more confused. Hematology consult for Dr. Lyle pending per Timur's request. Timur would like to continue with inpatient treatment (including ABX and remdesivir) for her PNA and COVID infection. Confirmed with Timur that she is a DNR/DNI. Timur is open for hospice care discussion with Dr. Lyle; there has not yet been a decision made regarding the possible transition to hospice level of care. She was recently started on Namenda - can continue. Continue dronabinol. Need to continue to address overarching GOC conversation as her overall prognosis is relatively poor ISO metastatic disease. Can proceed with easy to chew DM, HH diet with permissive aspiration. Fall precautions. OOB with assistance. PT/OT evals. HTN, HLD/CAD Valvular Heart Disease & HFpEF: Resting echocardiogram from 02/2024 --> LVEF = 55-60%, mild concentric LVH, mildly dilated LA, moderate MR and mild TR. Continue ASA. BLE edema noted on exam. Initial HTN in ED improved. S/p 0.5L NSS in ED. Continue home meds including Lasix. As pt NPO, hold antihypertensive agents; Hydralazine 5 mg IV Q 6 PRN SBP > 160 Atrial Fibrillation: Continue Eliquis, amiodarone and Lopressor. NSR on telemetry in ED. Will switch to SQ Lovenox, IV Lopressor due to avoiding PO meds Other Chronic Medical Conditions: Depression - Continue buspirone. Cancer-Related Pain - Continue gabapentin, PRN oxycodone. Hypothyroidism - Continue levothyroxine, check TSH tomorrow. DVT Prophylaxis: [employer] Eliquis Code Status: DNR/DNI - As per direct discussion with the patient's son/ELMIRA, Timur. PCP: Ramon Quesada, Disposition: Admit to PCU/Telemetry for further inpatient evaluation and management. Patient's son/POA, Timur, is requesting daily updates. He can be reached at . I spent a total of 48 minutes coordinating, documenting, and providing care for this patient excluding time spent in the performance of separately billed services or time spent by another provider/QHP. This included personally reviewing all current laboratories and imaging studies, medical reconciliation, outpatient chart review and discussion with specialists. This chart was completed in part utilizing Speech Voice Recognition Software. Grammatical errors, random word insertions, pronoun errors, and incomplete sentences are an occasional consequence of this system due to software limitations, ambient noise, and hardware issues. Any formal questions or concerns about the content, text, or information contained within the body of this dictation should be directly addressed to the provider for clarification. Admission and Anticipated Discharge Date Admission Date: November 18, 2024 Supervising Physician Co-Signing Physician Notes Attending Addendum: Case reviewed with the advanced practitioner. I have personally performed a history and physical examination on the patient. I have reviewed the advanced practitioner's documentation on the date of service referenced in note, and I agree with, and take responsibility for the plan of care. please refer to her notes for full details patient seen and examined, records reviewed by myself as well diagnoses and plan of care as per advanced practitioner's notes Nishant Colindres MD time spentI spent a total of 35 minutes coordinating, documenting, and providing care for this patient, excluding time spent in the performance of separately billed services or time spent by another provider/QHP. Subjective Pt sitting in her hospital bed on 15L oxymask. She is alert, but is unable to participate in decision making She is able to say she does not have pain or chest pain, dizziness. She does feel short of breath. Nursing noted aspiration during bedside dysphagia screening; Speech therapy also saw patient but she refused to participate with evaluation CXR imaging reviewed with attending, Dr. Colindres; will give Lasix to see if we are able to decrease the level of O2 patient is receiving. See below; [facility] saw patient this morning; and spoke with son. Chest CTA from admission date suggests disease progression. Grandson visiting at bedside during my visit. I spoke with Timur on the phone who states that his overarching goal is to return home with hospice. Her O2 requirement needs to be down to 10L for Hospice to manage safely. If she declines overnight, will transition to STAINED GLASS GLAZIER. Confirmed DNR/DNI. Numerous family members visiting with patient. Pt incontinent with pressure sore; morocho attempted by nursing; possible fistula; Urology to insert. 1730: called to room to s/w son, Timur. Patient appear more uncomfortable from this morning with more lethargy and increased respiratory demand with accessory muscle use. Lengthy conversation held with Timur and two other family members that it appears his mother is entering the dying process and is uncomfortable. He wishes to keep her comfortable while continuing some medications to assist with breathing like Lasix and IV abx. Discussed Roxanol and the pathophysiology behind it. Plan for Roxanol PRN, Atropine gtts for audible secretions. If patient would decline further overnight, full transition to comfort measures with Roxanol and could consider a Morphine gtt. Pt with adequate kidney function so no concerns for opioid toxicity. Timur still wants to meet with Dr. Lyle in the morning and I will meet with him as well. Likely transition to full comfort measures in AM on 11/20 Review of Systems Review of Systems: Limited ROS due to intermittent confusion Physical Exam Physical Exam: Neuro: AAOx2, PERRLA, no aphagia, memory changes, CNII-XII grossly intact HEENT: head normocephalic, moist mucus membranes CV: S1/S2, (-) M/G/R, (-) edema, cap refill < 3 seconds Resp: Lungs expiratory wheezes; on 12L oxymask GI: Abdomen S/NT/ND, Ax4 bowel sounds, (-) CVA tenderness Musculoskeletal: 5/5 B/L UE strength, 5/5 B/L LE strength. No gait disturbance Skin: (-) rashes , (-) erythema. Psych: euthymic mood Results & Data Results & Data Vital Signs (Past 12 Hours) Vital Signs Temp Pulse Pulse Resp BP Pulse Ox O2 Del Method 11/19/24 07:48 36.9 C 81 24 142/86 H 92 Oxymask 11/19/24 02:34 36.5 C 69 24 150/97 H 94 Oxymask 11/19/24 00:00 62 11/18/24 23:52 36.6 C 64 18 150/62 H 92 Room Air 11/18/24 22:10 94 Nasal Cannula 11/18/24 20:50 36.6 C 68 22 148/87 H 95 Nasal Cannula O2 Flow Rate 11/19/24 07:48 12 11/19/24 02:34 5 11/19/24 00:00 11/18/24 23:52 11/18/24 22:10 5 11/18/24 20:50 6 Laboratory Results Short CBC 11/18/24 11/19/24 Range/Units 13:25 05:59 WBC 13.34 H 10.98 H (4.8-10.8) K/ul Hgb 10.5 L 10.0 L (12.0-16.0) g/dl Hct 32.3 L 30.7 L (37.0-47.0) % Plt Count 200 179 (130-400) K/uL BMP 11/18/24 11/19/24 13:25 05:59 Sodium 138 140 Potassium 3.5 3.3 L Chloride 85 L 89 L Carbon Dioxide > 45 H* > 45 H* BUN 47 H 37 H Creatinine 0.72 0.55 L Glucose 306 H* 152 H Calcium 8.1 L 8.4 L Liver Function 11/18/24 11/19/24 Range/Units 13:25 05:59 Total Bilirubin 0.7 0.7 (0.2-1.0) mg/dl Direct Bilirubin 0.2 (0-0.2) mg/dl AST 34 26 (13-39) U/L ALT 47 50 (7-52) U/L Alkaline Phosphatase 60 60 (34-104) U/L Albumin 3.1 L 3.0 L (3.4-5.0) gm/dl Diagnostic Findings Chest X-Ray 11/19/24 08:16 XR chest 1V portable CLINICAL HISTORY: hypoxia, covid 19 COMPARISON STUDY: 11/18/2024 FINDINGS: Stable CABG and chest port. Heart size and pulmonary vasculature are normal. There is stable faint reticular and patchy opacity at the left lung. No pleural effusion or pneumothorax. IMPRESSION: Stable exam. ACT 112: Negative or not required by law. Electronically signed by: Kiel Diaz M.D. 11/19/2024 9:11 AM (6) Change in mental status Altered mental status type: disorientation Qualified Code(s): R41.0 - Disorientation, unspecified (7) Metastatic primary lung cancer Laterality: unspecified laterality Qualified Code(s): C34.90 - Malignant neoplasm of unspecified part of unspecified bronchus or lung
[2024-11-19] MEDS: LEVOTHYROXINE SODIUM 25 MCG TABLET PO ONE (09:01)
[2024-11-19] MEDS: dexAMETHasone 4 MG TAB PO SCH (09:02)
[2024-11-19] MEDS: AMIODARONE 200 MG TAB PO SCH (09:02)
[2024-11-19] MEDS: amLODIPine BESYLATE 5 MG TAB PO SCH (09:02)
[2024-11-19] MEDS: FUROSEMIDE 20 MG TAB PO SCH (09:02)
[2024-11-19] MEDS: ASPIRIN 81 MG CHEW PO SCH (09:02)
[2024-11-19] MEDS: busPIRone 5 MG TAB PO SCH (09:02)
[2024-11-19] MEDS: guaiFENesin 600 MG TABCR PO SCH (09:03)
[2024-11-19] MEDS: MULTIVITAMIN TAB PO SCH (09:03)
[2024-11-19] MEDS: MEMANTINE HCL 5 MG TAB PO SCH (09:03)
[2024-11-19] MEDS: ADVANCED PROBIOTIC 625 MG CAPSULE PO SCH (09:03)
[2024-11-19] MEDS: LOSARTAN POTASSIUM 50 MG TAB PO SCH (09:03)
--- NOTE | 2024-11-19 09:13 | XRay Report ---
XR chest 1V portable CLINICAL HISTORY: hypoxia, covid 19 COMPARISON STUDY: 11/18/2024 FINDINGS: Stable CABG and chest port. Heart size and pulmonary vasculature are normal. There is stabl e faint reticular and patchy opacity at the left lung. No pleural effusion or pneumothorax. IMPRESSION: Stable exam. ACT 112: Negative or not required by law. Electronically signed by: Kiel Diaz M.D. 11/19/2024 9:11 AM
[2024-11-19] MEDS: SODIUM CHLOR 7% 4 ML NEB NEB SCH (09:39)
[2024-11-19] MEDS: ALBUT/IPRATROP 3MG/0.5MG NEB 3 ML VIAL NEB PRN (09:48)
[2024-11-19] MEDS: LANTUS PER UNIT CHARGE SC SCH (10:02)
[2024-11-19] MEDS ORDERED: hydrALAZINE HCL 20 MG/ML VIAL IV PRN (10:18)
[2024-11-19] MEDS ORDERED: POTASSIUM CHLORIDE / WTR 10 MEQ/100 ML PLCT IV SCH (10:30)
[2024-11-19] MEDS: POTASSIUM CHLORIDE / WTR 20 MEQ/100 ML PLCT IV ONE (10:40)
[2024-11-19] MEDS: FUROSEMIDE INJ 20 MG/2 ML VIAL IV ONE (11:25)
--- NOTE | 2024-11-19 13:28 | Pharmacy Report ---
Pharmacy Glycemic Short Note 2 - Date of Service November 19, 2024 - Glycemic Short BSG Results (Last 24 hours): 11/18/24 11/18/24 11/18/24 13:25 19:28 19:30 Glucose 306 H* POC Glucose 325 H* 267 H 11/18/24 11/18/24 11/19/24 19:31 23:49 04:02 Glucose POC Glucose 280 H 186 H 167 H 11/19/24 11/19/24 11/19/24 05:59 07:45 11:42 Glucose 152 H POC Glucose 147 H 170 H OUTPATIENT ANTIDIABETIC REGIMEN: * n/a HbA1c: 7.4% (11/19/24) ASSESSMENT: * BR is an 83 year old female with metastatic small cell lung cancer, admitted with acute respiratory failure secondary to multifocal pneumonia/COVID-19 * Hyperglycemia on presentation (blood sugar > 300 mg/dL), started on SC bolus insulin regimen only last evening * Patient ordered dexamethasone 8 mg PO qAM and 4 mg PO qPM, which is a continuation from home PLAN FOR INPATIENT GLYCEMIC CONTROL: * Basal insulin * Lantus 5 units SQ daily * Bolus insulin * NovoLog per scale ACHS or Q6hrs while NPO * Goal Range: Low 120 mg/dL - High 160 mg/dL * Correction Factor: 35 mg/dL/unit * Nutritional / Prandial insulin per carb ratio of 1 unit per 12 grams CHO consumed
[2024-11-19] MEDS ORDERED: DEXAMETHASONE SOD INJ 4 MG/ML VIAL IV STA (16:11)
--- NOTE | 2024-11-19 16:56 | Urology Consultation ---
Date of Consultation November 19, 2024 Assessment & Plan (1) Metastatic primary lung cancer: (2) Change in mental status: (3) Lung cancer metastatic to brain: (4) Acute on chronic respiratory failure with hypoxia and hypercapnia: (5) Multifocal pneumonia: (6) Acute urinary retention: (7) COVID-19: (8) Refractory nausea and vomiting: (9) Rash of vulva: Plan Patient was admitted with significant acute illness. Had developed issues with voiding. Attempts by nursing to place catheter were unable to advance. Urology was consulted for further assessment. Patient has known metastatic lung cancer. Small cell carcinoma. Patient had recently been diagnosed with COVID. Has known brain metastatic disease. Has been having increasing issues. Was seen by the medical team also had medical oncology referral. Per records may be moving more towards comfort care measures due to increasing disease. Discussed different options with patient moving forward. Discussed placement of catheter in order to drain bladder and manage voiding issues. Discussed other issues and concerns. Patient has had multiple imaging due to metastatic disease and acute illness. Discussed possible workup and further assessment. Discussed placement of catheter for management of urinary issues. Discussed options moving forward. Reviewed extensively with patient. Patient independently assessed, examined, interviewed, and evaluated. Agree with note as above. Patient's vitals and labs were all reviewed. Pertinent values in the HPI and plan section. Imaging was reviewed interpreted by myself. Previous imaging including CT examination has not shown any major signs of obstruction of the kidneys. Had undergone more recent imaging to reassess head and chest due to acute issues with acute lung issues and worsening confusion. Agree with read. Vitals were reviewed. Hemoglobin 10.0. White count 10.98 creatinine 0.55 BP 99/50 pulse 112 respirations 20 temperature 37.3 oxygen saturation 93% on oxygen supplementation. Discussed findings extensively with patient and family. Reviewed with nurse practitioner as well as consulting physicians/team. Patient's complicated medical and surgical history was reviewed and summarized above. Patient's surgical, medical, social, and family history were all reviewed with pertinent values as above. Discussed patient's current diagnosis as well as concerns and issues. Reviewed different options moving forward. Discussed potential risks and benefits as well as possible options and concerns. Reviewed potential surgical options and interventions. Discussed option for bedside procedure. Patient was agreeable. Discussed potential issues and concerns related to intervention. Risk and benefits were discussed extensively with patient and any available family. Discussed options if unable to place catheter as well as different options for further assessment. Discussed potential risks related to anesthesia. Discussed risks of bleeding infection and injury. Patient was agreeable to move forward with attempted bedside catheter placement. Patient was prepped and draped in the usual sterile fashion. A 18 Turkish coud catheter was then placed clear yellow urine was received. Patient had signs of significant atrophic vaginitis and irritation in the groin. A lidocaine infused jelly was utilized for anesthetic. The balloon was elevated a bag was attached. Catheter was going to be secured by nursing for continued drainage of the bladder. Can likely be used for management of bladder moving forward depending on patient and family decisions moving forward for further care. If more palliative/comfort measures can likely maintain catheter for adequate drainage and management of the bladder. Reviewed extensively options moving forward. Patient's complicated medical and surgical history is reviewed and summarized above all imaging was reviewed interpreted myself all labs and vitals were reviewed with pertinent positives and negatives in HPI and plan section. Bedside procedure was completed by myself utilizing sterile technique for catheter placement. Drained approximately 650 cc of urine with catheter placement was clear. Did have atrophic changes with retraction of the urethra. Will plan to maintain catheter. Did extensively discussed with patient's family options moving forward. At this point can likely maintain catheter as she is dealing with her acute illness as well as plans are being made as far as her long-term care options. History of Present Illness Attending Physician: Nishant Colindres MD History of Present Illness Consult for urinary issues with incomplete emptying and possible retention. Patient with metastatic cancer. Had recently been diagnosed with COVID. Has been dealing with significant illness. Is being seen by hospitalist team as well as a referral to medical oncology. Patient may be undergoing more comfort care measures moving forward due to ongoing issues with malignancy. During hospitalization patient has had increasing issues. Patient has mild to moderate discomfort in pelvis and groin going to back and side in waves. Is dealing with acute illness. Has been deconditioned from this. Has decreased mobility significantly with acute issues. Patient has not had complete return to normal bowel function. Still dealing with significant Respiratory issues. Has had some minor urinary issues in the past. Denies bleeding. No severe nausea or vomiting. Currently no fevers. catheter was attempted by nursing was unable to be placed. Discussed with patient multifactorial nature of urinary issues, retention, and incomplete bladder emptying. Discussed concerns and issues. Discussed decreased mobility and trouble voiding. Discussed issues related to deconditioning and weakened state. Discussed possibility that patient had more moderate to severe issues and with the acute illness and deconditioning these issues became more prevalent and obvious. Discussed bowel function and possible issues related to decrease in function and its relation to other pelvic organs and systems. Discussed different medications, will use during hospitalization and their effect on ability to empty. Allergies Allergy/AdvReac Type Severity Reaction Status Date / Time azithromycin Allergy Severe throat Verified 10/10/24 12:09 swelling mivacurium Allergy Severe anaphylaxis Verified 10/10/24 12:09 sulfamethoxazole Allergy Intermediate Hives Verified 10/10/24 12:09 trimethoprim Allergy Intermediate Hives Verified 10/10/24 12:09 penicillin V Allergy Mild arm Verified 10/10/24 12:09 swelling with PCN (tolerates oral PCN/Amoxicillin) Macrolide Antibiotics Allergy Unknown Unknown Verified 11/19/24 08:23 Home Medications Medication Instructions Recorded Confirmed Type albuterol sulfate 90 mcg/actuation 2 puff inhalation QID PRN 04/19/24 11/18/24 Rx aerosol inhaler shortness of breath or wheezing #8.5 grams amiodarone 200 mg tablet 200 mg PO DAILY #90 tabs 04/19/24 11/18/24 Rx calcium 600 mg (as carbonate)-vit 1 tab PO HS #30 tabs 04/19/24 11/18/24 Rx D3 20 mcg (800 unit) chewable tablet (Caltrate plus D) metoprolol tartrate 50 mg tablet 50 mg PO BID #180 tabs 04/19/24 11/18/24 Rx multivitamin 1 tab PO QAM #30 tabs 04/19/24 11/18/24 Rx ondansetron HCl 8 mg tablet 8 mg PO Q8H PRN Nausea/Vomiting 06/02/24 11/18/24 History prochlorperazine maleate 10 mg 10 mg PO Q6H PRN Nausea/Vomiting 06/02/24 11/18/24 History tablet (Compazine) apixaban 5 mg tablet 2.5 mg PO BID 09/19/24 11/18/24 History memantine 5 mg tablet 5 mg PO DAILY Receiving brain 10/04/24 11/18/24 Rx radiation therapy #70 tabs amlodipine 2.5 mg tablet 2.5 mg PO QAM 11/18/24 11/18/24 History aspirin 81 mg chewable tablet 81 mg PO QAM 11/18/24 11/18/24 History (Aspirin Childrens) buspirone 10 mg tablet 10 mg PO QAM 11/18/24 11/18/24 History dexamethasone 4 mg tablet See Rx Instructions .Route .COMPLEX 11/18/24 11/18/24 History dronabinol 2.5 mg capsule 2.5 mg PO BID 11/18/24 11/18/24 History furosemide 20 mg tablet 20 mg PO QAM 11/18/24 11/18/24 History gabapentin 300 mg capsule 300 mg PO BID 11/18/24 11/18/24 History levothyroxine 75 mcg capsule 75 mcg PO QAM 11/18/24 11/18/24 History losartan 100 mg tablet 100 mg PO QAM 11/18/24 11/18/24 History oxycodone 5 mg tablet 5 mg PO Q4H PRN Pain 11/18/24 11/18/24 History potassium chloride 10 mEq 10 meq PO BID 11/18/24 11/18/24 History capsule,extended release Patient History Medical History Vulvitis entered into EMR and last edited 03/27/24 Rash of vulva duplicate Palliative care by specialist Acute kidney injury entered into EMR and last edited 03/15/24 Hypokalemia entered into EMR and last edited 09/23/22 Stroke-like symptoms not suspected to be TIA per neurology note; head imaging negative for stroke Bilateral pneumonia Atrial fibrillation Pleural effusion entered into EMR and last edited 04/01/24 Lung cancer Myoclonic jerking prior to admission 03/15/24-responded to Ativan per admission note Lymphadenopathy, mediastinal A large right upper lobe paramediastinal mass lesion with mediastinal indication a significantly decreased in size as compared to 03/15/2024. Metastatic right cardiophrenic lymphadenopathy has also decreased from previous. SVC obstruction Acute hypoxic respiratory failure on supplemental oxygen-2L; currently hospitalized at [facility] Slurring of speech Abdominal aortic ectasia Severe mitral regurgitation Moderate left ventricular systolic dysfunction Alveolar emphysema of lung Hypertension Dyslipidemia Mild coronary artery disease normal coronary arteries with mild luminal irregularities per 2011 cardiac cath Moderate to severe mitral regurgitation Severe per 11/2022 ECHO Seasonal allergies Anxiety Chronic back pain Breast cancer right, XRT in 1986 Aortic aneurysm s/p repair (2010), follows with [facility] cardio Osteoporosis, unspecified Post-traumatic arthritis of ankle Surgical History 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 Status post open reduction with internal fixation (ORIF) of fracture of ankle Right ankle ORIF: 06/03/20: Grade view 1, MAC#3, ETT 7 at [facility] Status post thoracic aortic aneurysm repair with a stent + "blow out patch" (2010) [facility] [place] History of cardioversion 10/2022 [facility] S/P ankle arthrodesis H/O decompression of ulnar nerve right History of carpal tunnel release right and left History of cataract surgery bilateral History of tonsillectomy History of appendectomy History of colonoscopy Hx of lumpectomy right breast with radiation History of bilateral tubal ligation H/O lumbar discectomy with hardware/cage S/P hardware removal Left wrist Status post open reduction and internal fixation (ORIF) of fracture Left wrist History of cardiac cath 2011- [place], no stents; f/u dr javed, [place] History of open reduction and internal fixation (ORIF) procedure left wrist Family History Mother Heart disease Other No family history of adverse response to anesthesia Social History Smoking Status: Former smoker Tobacco Type: Cigarettes Cigarettes Per Day: QUIT >12 YRS AGO; Smoking End Date: 10-15 years ago; Second Hand Exposure: No; Do You Dip or Chew Tobacco: No; Tobacco Cessation Education Requested by Patient: No Hx Alcohol Use: No Hx Substance Use: No Preferred Language: Jordanian Communication Ability: Impaired Communication Ability Comment: glasses, forgetful Technology Coordinator Required: No Beliefs That Will Affect Care: None marital status: / Current Living Situation: Family Current Living Situation Comment: son, & grandson Other Information That Helps Us Care for You: No Feels Safe at Home: Yes Safety Concerns: Feels Safe At This Time Assistive Devices: Cane, Oxygen - Continuous, Walker and Wheelchair Review of Systems Review of Systems: All systems reviewed & are unremarkable except as noted in HPI & below Physical Exam Physical Exam: General: Cachectic. Delirium but arousable/alert. Acute illness. HEENT: Normocephalic Atraumatic. Inspection normal. Cranial Nerves 2-12 Grossly intact. Nares are clear. Neck is supple. Normal inspection of face. Normal inspection of neck. Neurologic: Delirium secondary to illness. No deficits on inspection. Baseline for motor function and sensory. Psychologic: Delirium. Normal affect. Respiratory: Nonlabored. No use of accessory muscles. Mild tachypnea or dyspnea. Cardiovascular: No tachycardia Skin: Raven and Dry. No rashes or visible lesions. Extremities: Moving without issues. No motor deficits on inspection Lymphatics: No edema Abdomen: Soft moderately distended. No rebound or guarding. : Retracted urethra with atrophic vaginitis. Mild irritation around the groin. Results & Data Vital Signs (Past 12 Hours) Vital Signs Temp Pulse Pulse Resp BP Pulse Ox Pulse Ox 11/19/24 16:03 112 H 20 99/50 L 93 11/19/24 15:14 110 H 11/19/24 11:29 37.3 C 95 H 28 H 131/70 90 11/19/24 11:23 89 L 11/19/24 09:48 90 24 92 11/19/24 08:00 72 11/19/24 08:00 11/19/24 07:48 36.9 C 81 24 142/86 H 92 Pulse Ox O2 Del Method O2 Flow Rate O2 Flow Rate O2 Flow Rate 11/19/24 16:03 Oxyhood 11 11/19/24 15:14 11/19/24 11:29 Oxymask 15 11/19/24 11:23 85 L 10 10 11/19/24 09:48 Oxymask 11 11/19/24 08:00 11/19/24 08:00 Oxymask 12 11/19/24 07:48 Oxymask 12 PG Care Time/CCT Total # of Minutes Spent Total Time Spent with Patient: Total time spent is greater than 50% in coordination of care (as documented) at patient's floor/unit and/or counseling patient: Coding Level of Care Code 52208 INT INP/OBS CARE 3/75MIN Diagnoses Primary malignant neoplasm of lung metastatic to other site, unspecified laterality C34.90 Laterality: unspecified laterality Disorientation R41.0 Altered mental status type: disorientation Lung cancer metastatic to brain C34.90; C79.31 Acute on chronic respiratory failure with hypoxia and hypercapnia J96.21; J96.22 Multifocal pneumonia J18.9 Acute urinary retention R33.8 COVID-19 U07.1 Refractory nausea and vomiting R11.2 Rash of vulva R21 (1) Metastatic primary lung cancer Laterality: unspecified laterality Qualified Code(s): C34.90 - Malignant neoplasm of unspecified part of unspecified bronchus or lung (2) Change in mental status Altered mental status type: disorientation Qualified Code(s): R41.0 - Disorientation, unspecified
[2024-11-19] MEDS: ENOXAPARIN INJ 40 MG/0.4 ML SYR SQ SCH (17:15)
[2024-11-19] MEDS: dexAMETHasone 8 MG in SYRINGE 0 ML IV STA (17:15)
[2024-11-19] MEDS: DOXYCYCLINE HYCLATE 100 MG in DEXTROSE 5% MINI-B 100 ML IV SCH (17:16)
[2024-11-19] MEDS: METOPROLOL TARTRATE 1 MG/ML VIAL IV SCH (17:26)
[2024-11-19] MEDS: MoRPHine SULFATE 10 MG/0.5 ML UDP PO PRN (18:36)
[2024-11-19] MEDS: ATROPINE SULFATE 1% OP SOLN 5 ML BTL SL SCH (19:42)
[2024-11-19] MEDS: REMDESIVIR 100 MG in SODIUM CHLORIDE 0.9% 230 ML IV SCH (19:43)
[2024-11-19] MEDS: ACETAMINOPHEN 1,000 MG/100 ML VIAL IV PRN (20:47)
[2024-11-20] MEDS: LEVOTHYROXINE SODIUM 100 MCG TABLET PO SCH (06:04)
[2024-11-20 07:01] VITALS: RESP 18
[2024-11-20 07:14] LABS: Hematocrit (blood only) 29.5 % (37.0-47.0); Hemoglobin 9.6 g/dl (12.0-16.0); Mean Corpuscular Hemoglobin 30.2 pg (25.0-34.0); Mean Corpuscular Hgb Conc 32.5 g/dL (32.0-36.0); Mean Corpuscular Volume 92.8 fL (80.0-100.0); Mean Platelet Volume 9.8 fL (9.4-12.4); Platelet Count 145 K/uL (130-400); RDW Coefficient of Variation 18.3 % (11.5-14.5); RDW Standard Deviation 61.2 fL (36.4-46.3); Red Blood Count 3.18 M/uL (4.20-5.40); White Blood Count 10.57 K/ul (4.8-10.8)
--- NOTE | 2024-11-20 07:22 | Hospitalist Progress Note ---
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 This morning she was noted to be hypoxic on her baseline 2.5L via NC at 76-77% SpO2 with increased work of breathing which prompted the call to EMS. Patient was previously on 2L via NC at baseline however this was recently increased over the past few weeks. Patient initially had to be placed on OxyMask in the ED as she was still hypoxic at 86% SpO2 on 3L via NC upon arrival. Lengthy conversation with family and Heme/Onc during this admission; transitioning to comfort measures starting 11/20. Update: 1630; patient family called me to room; patient with shallow breathing, on 6LNC, was previously picking at the air and hallucinating. Her eyes and gaze was fixed at the ceiling. No diaphragmatic breathing, no signs of air hunger; furrowed brow on examination. Discussed with family, will complete transition to CEMENT DESPATCH OPERATOR with discontinuation of IV abx, Remdesivir, and IV Lasix. Discussed with family about what to expect in last hours to a day or two of life. Discussed audible secretions, shallow breathing, and mottling. Family said that the patient was 'choking' on the Roxanol, discussed transitioning to IV Morphine which they were receptive to. Will keep scheduled Morphine IV, PRN Morphine IV, Atropine gtts, and Ativan PRN.Anticipate patient is entering last hours to a day or two of life Goals of Care Conversation; discussion: Comfort Measures Only status: Lengthy conversation last evening and this morning with family, specifically son, Timur. Pt has been weaned to nasal canula; however, this morning she was quite agitated and pulling off her oxygen repeatedly. Roxanol was initiated last night to assist with air hunger. Discussed with son that Roxanol has an effect that can cause cognitive clarity; encouraged embracing this time with her as it could be short lived. Overarching goal remains to return home with Hospice; however, guarded with the possibility of a quick decline that we saw over the past 24 hours. At this time, after conversation with Dr. Lyle and Mic; plan to transition to full comfort measures only this morning with discontinuation of blood draws and non essential medications. Continue for now with IV Lasix daily, IV Decadron, IV Remdesivir, and IV abx. ; slow transition to CEMENT DESPATCH OPERATOR. OK for downgrade out of PCU. She asked for ice cream; permissive aspiration 11/20: Good conversation with patient; I asked her if she had fears around dying and she said 'yes'. I talked with her about her disease progression which she understood and has had conversation with Dr. Lyle about as well. I asked if she had fears with dying due to not wanting to struggle while breathing and she said 'yes'. We discussed comfort medications and how they work. Timur has been processing this information over the past few days/week. He is struggling with giving her permission to , which we discussed at length today. Lots of family visiting today. Transitioning to CEMENT DESPATCH OPERATOR. As pt expected to continue to decline; no escalation of care. Life expectancy hours to days. Multifocal PNA, COVID Infection Acute on Chronic Respiratory Failure W/ Hypoxia & Hypercapnia: Patient transitioned to CEMENT DESPATCH OPERATOR on 11/20. Elevated Troponin: Initial troponin 24.5, repeat troponin 20.3; appears chronically elevated. No reported chest pain. EKG reassuring. No need to trend further. EKG with chest pain PRN. Transitioned to comfort measures only Hyperglycemia: Transitioned to comfort measures only Change in Mental Status Metastatic Small Cell Lung Cancer, Brain Metastases: Transitioned to comfort measures only: below is previous from hospital stay. Patient with a prolonged hospital course under our service from February-March 2024. In short, patient was newly diagnosed with metastatic small cell lung cancer during that admission and was started on chemotherapy. She follows with Dr. Lyle of [facility]. Patient previously completed chemotherapy in 05/2024 and radiation therapy to her chest in 07/2024. Patient was found to have brain metastases back in 08/2024 and underwent whole brain radiation therapy which was completed last month shortly before [place]. Family notes that she has had an overall decline in her mentation status since completing whole brain radiation therapy. She has become more confused and disoriented as of recently with waxing/waning alertness levels. She is not currently undergoing any treatments for her cancer. Overall poor oral intake/hydration status with BUN of [address] Lyle saw patient today and suggests that no further chemotherapy is recommended and she supports a transition to hospice/comfort measures. Per Dr. Lyle, goal of pt son is for pt to return home with hospice support. Patient will require less oxygen use in order to be supported at home; typically 10L oxymask is the limit that can be supported out of hospital. Suspect acute metabolic encephalopathy 2/2 active infection, metastatic disease. Chest CTA noted interval enlargement of multiple R-sided pleural-based masses, largest measuring 51 x 29mm in the peridiaphragmatic region, concerning for worsening metastatic disease. Patient is currently on dexamethasone BID (8mg AM and 4mg PM) 2/2 headaches from whole brain radiation therapy - can continue. Her son, Timur, notes that they tried to titrate her dexamethasone dosing down previously however this worsened her mentation status and caused her to become even more confused. Hematology consult for Dr. Lyle pending per Timur's request. Timur would like to continue with inpatient treatment (including ABX and remdesivir) for her PNA and COVID infection. Confirmed with Timur that she is a DNR/DNI. Timur is open for hospice care discussion with Dr. Lyle; there has not yet been a decision made regarding the possible transition to hospice level of care. She was recently started on Namenda - can continue. Continue dronabinol. Need to continue to address overarching GOC conversation as her overall prognosis is relatively poor ISO metastatic disease. Can proceed with easy to chew DM, HH diet with permissive aspiration. Fall precautions. OOB with assistance. PT/OT evals. HTN, HLD/CAD Valvular Heart Disease & HFpEF: Transitioned to comfort measures only; see below for hospital stay Resting echocardiogram from 02/2024 --> LVEF = 55-60%, mild concentric LVH, mildly dilated LA, moderate MR and mild TR. Continue ASA. BLE edema noted on exam. Initial HTN in ED improved. S/p 0.5L NSS in ED. Continue home meds including Lasix. As pt NPO, hold antihypertensive agents; Hydralazine 5 mg IV Q 6 PRN SBP > 160 Atrial Fibrillation: Comfort Measures Only. Was on Eliquis, amiodarone and Lopressor; discontinue Other Chronic Medical Conditions: Depression - Discontinue buspirone. Cancer-Related Pain - Continue gabapentin, PRN oxycodone. Hypothyroidism - Continue levothyroxine, check TSH tomorrow. DVT Prophylaxis: NET DEVELOPER PROGRAMMER Eliquis Code Status: DNR/DNI - As per direct discussion with the patient's son/POATimur. Comfort Measures only 11/20. PCP: Ramon Quesada, Disposition: M/S; anticipated patient dies in hospital over next hours to days I spent a total of 59 minutes coordinating, documenting, and providing care for this patient excluding time spent in the performance of separately billed services or time spent by another provider/QHP. This included personally reviewing all current laboratories and imaging studies, medical reconciliation, outpatient chart review and discussion with specialists. Admission and Anticipated Discharge Date Admission Date: November 18, 2024 Supervising Physician Co-Signing Physician Notes Attending Addendum: Case reviewed with the advanced practitioner. I have reviewed the advanced practitioner's documentation on the date of service referenced in note, and I agree with, and take responsibility for the plan of care. please refer to her notes for full details patient seen and examined, records reviewed by myself as well diagnoses and plan of care as per advanced practitioner's notes Nishant Colindres MD Subjective Patient sitting in her hospital bed; she is alert and responding appropriately to questions with one word answers. She is able to deny pain and feels her breathing is less compromised. Lengthy conversation last evening and this morning with family, specifically son, Timur. Pt has been weaned to nasal canula; however, this morning she was quite agitated and pulling off her oxygen repeatedly. Roxanol was initiated last night to assist with air hunger. Discussed with son that Roxanol has an effect that can cause cognitive clarity; encouraged embracing this time with her as it could be short lived. Overarching goal remains to return home with Hospice; however, guarded with the possibility of a quick decline that we saw over the past 24 hours. At this time, after conversation with Dr. Lyle and Mic; plan to transition to full comfort measures only this morning with discontinuation of blood draws and non essential medications. Continue for now with IV Lasix daily, IV Decadron, IV Remdesivir, and IV abx. ; slow transition to CEMENT DESPATCH OPERATOR. OK for downgrade out of PCU. She asked for ice cream; permissive aspiration Good conversation with patient; I asked her if she had fears around dying and she said 'yes'. I talked with her about her disease progression which she understood and has had conversation with Dr. Lyle about as well. I asked if she had fears with dying due to not wanting to struggle while breathing and she said 'yes'. We discussed comfort medications and how they work. Timur has been processing this information over the past few days/week. He is struggling with giving her permission to , which we discussed at length today. Lots of family visiting today. Transitioning to CEMENT DESPATCH OPERATOR. As pt expected to continue to decline; no escalation of care. Life expectancy hours to days. Review of Systems Review of Systems: Limited ROS due to intermittent confusion Physical Exam Physical Exam: Neuro: AAOx2, PERRLA, no aphagia, memory changes, CNII-XII grossly intact HEENT: head normocephalic, dry mucus membranes CV: S1/S2, (-) M/G/R, (+) 1 LE edema, cap refill < 3 seconds Resp: Lungs expiratory wheezes, coarse throughout; on 6L nasal canula GI: Abdomen S/NT/ND, Ax4 bowel sounds, (-) CVA tenderness Musculoskeletal: 4/5 B/L UE strength, 4/5 B/L LE strength. Skin: (-) rashes , (-) erythema. : Garner catheter with dark yellow output Psych: agitated and flat mood interchangeable, at times, tearful Results & Data Results & Data Vital Signs (Past 12 Hours) Vital Signs Temp Pulse Pulse Resp BP BP Pulse Ox 11/20/24 07:15 72 11/20/24 07:00 76 18 84 L 11/20/24 06:24 73 125/64 11/20/24 06:09 77 115/62 11/20/24 02:47 36.8 C 81 21 104/60 100 11/20/24 00:41 11/20/24 00:00 86 11/19/24 23:07 77 95/45 L 11/19/24 23:05 11/19/24 23:04 84 103/48 L 11/19/24 22:29 36.6 C 92 H 18 92/56 L 99 11/19/24 21:49 11/19/24 21:07 11/19/24 20:09 98 H 18 96 11/19/24 19:47 Pulse Ox O2 Del Method O2 Del Method O2 Flow Rate O2 Flow Rate 11/20/24 07:15 11/20/24 07:00 Room Air 11/20/24 06:24 11/20/24 06:09 11/20/24 02:47 Oxymask 3 11/20/24 00:41 99 Oxymask 3 11/20/24 00:00 11/19/24 23:07 11/19/24 23:05 99 Oxymask 6 11/19/24 23:04 11/19/24 22:29 Oxymask 7 11/19/24 21:49 97 Oxymask 8 11/19/24 21:07 97 Oxymask 10 11/19/24 20:09 Oxymask 12 11/19/24 19:47 97 Oxymask 12 Laboratory Results Short CBC 11/20/24 Range/Units 06:08 WBC 10.57 (4.8-10.8) K/ul Hgb 9.6 L (12.0-16.0) g/dl Hct 29.5 L (37.0-47.0) % Plt Count 145 (130-400) K/uL BMP 11/20/24 06:08 Sodium 141 Potassium 2.9 L Chloride 90 L Carbon Dioxide > 45 H* BUN 40 H Creatinine 0.77 Glucose 193 H Calcium 8.2 L (8) Change in mental status Altered mental status type: disorientation Qualified Code(s): R41.0 - Disorientation, unspecified (9) Metastatic primary lung cancer Laterality: unspecified laterality Qualified Code(s): C34.90 - Malignant neoplasm of unspecified part of unspecified bronchus or lung
[2024-11-20 07:48] VITALS: BP 134/63; PULSE 74; TEMP 97.5; O2SAT 90
[2024-11-20 08:05] LABS: BUN Creatinine Ratio 51.9 (10-20); Blood Urea Nitrogen 40 mg/dl (6-23); Calcium 8.2 mg/dl (8.6-10.3); Carbon Dioxide > 45 mmol/L (21-32); Chloride 90 mmol/L (98-107); Creatinine Clr Calc Pharmacy 42.1 ml/min; Glucose 193 mg/dl (70-99(Fasting)); Potassium 2.9 mmol/L (3.5-5.1); Sodium 141 mmol/L (136-145)
[2024-11-20] MEDS: LANTUS PER UNIT CHARGE SC SCH (08:08)
[2024-11-20] MEDS: FUROSEMIDE 40 MG/4 ML VIAL IV SCH (08:13)
[2024-11-20] MEDS: dexAMETHasone 8 MG in SYRINGE 0 ML IV SCH (08:14)
[2024-11-20] MEDS ORDERED: dexAMETHasone**PF** 10 MG/ML VIAL IV SCH (09:00)
[2024-11-20] MEDS: MoRPHine SULFATE 10 MG/0.5 ML UDP PO PRN ×2 (09:30→12:05)
[2024-11-20] MEDS: MoRPHine SULFATE 10 MG/0.5 ML UDP PO SCH ×2 (10:00→15:43)
[2024-11-20] MEDS ORDERED: Nursing to Pharmacy Communication SCH (15:15)
[2024-11-20] MEDS: LORazepam 2 MG/1 ML VIAL IV PRN (16:17)
[2024-11-20] MEDS: MoRPHine SULFATE 2 MG/ML CARP IV SCH (17:54)
[2024-11-20] MEDS ORDERED: MoRPHine SULFATE 2 MG/ML CARP IV SCH (23:00)
[2024-11-21] MEDS: MoRPHine SULFATE 2 MG/ML CARP IV PRN (08:04)
[2024-11-21] MEDS: HEPARIN 100 UNIT/ML 5ML FLUSH FLUSH PRN (08:04)
--- NOTE | 2024-11-21 10:30 | Hospitalist Progress Note ---
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 This morning she was noted to be hypoxic on her baseline 2.5L via NC at 76-77% SpO2 with increased work of breathing which prompted the call to EMS. Patient was previously on 2L via NC at baseline however this was recently increased over the past few weeks. Patient initially had to be placed on OxyMask in the ED as she was still hypoxic at 86% SpO2 on 3L via NC upon arrival. Lengthy conversation with family and Heme/Onc during this admission; transitioning to comfort measures starting 11/20. Comfort Measures Only status: Multifocal PNA, COVID Infection Acute on Chronic Respiratory Failure W/ Hypoxia & Hypercapnia: Metastatic Small Cell Lung Cancer, Brain Metastases: HTN, HLD/CAD Valvular Heart Disease & HFpEF: Transitioned to comfort measures only; see below for hospital stay Atrial Fibrillation: DIRECTOR OF CONVENTION SERVICES continue scheduled IV morphine Pt appears comfortable atropine, lorazepam prn expect pt to pass within hours to days Spoke to multiple family members, Son Timur, and sister rocio at beside. All questions were answered. I spent a total of 45 minutes coordinating, documenting and providing care for this patient excluding time spent in the performance of separately billed services or time spent by another provider/QHP. Admission and Anticipated Discharge Date Admission Date: November 18, 2024 Supervising Physician Co-Signing Physician Notes Attending Addendum: Case reviewed with the advanced practitioner. I have reviewed the advanced practitioner's documentation on the date of service referenced in note, and I agree with, and take responsibility for the plan of care. please refer to her notes for full details diagnoses and plan of care as per advanced practitioner's notes Nishant Colindres MD Subjective Pt seen in room 380-1. Pt appears comfortable. ROS unobtainable from pt given mental status. Pt currently DIRECTOR OF CONVENTION SERVICES. Review of Systems Review of Systems: All systems reviewed & are unremarkable except as noted in HPI & below Physical Exam Physical Exam: Gen: Thin, elderly female, resting comfortably in bed, NAD HEENT: Normocephalic, atraumatic, conjunctivae moist, sclerae anicteric, mucous membranes moist. Lung: CTAB no w/r/r Heart: Regular rate, regular rhythm Abdomen: Soft, NT, ND +BS x 4 Extremities: No edema. b/l venous stasis changes Skin: Warm, no rash, negative turgor. Results & Data Results & Data Vital Signs (Past 12 Hours) Vital Signs O2 Del Method O2 Flow Rate 11/21/24 07:30 Nasal Cannula 3 Medications Administered Current Inpatient Medications Atropine Sulfate (Atropine Sulfate 1% Op Soln 5 Ml Btl) 4 drops SL Q3H PRN PRN Reason: secretions Stop: 12/20/24 10:59 Heparin Sodium (Porcine) (Heparin 100 Unit/Ml 5ml Flush) 5 ml FLUSH PRN PRN PRN Reason: Flush Stop: 12/21/24 04:02 Last Admin: 11/21/24 10:19 Dose: 5 ml Lorazepam (Lorazepam 2 Mg/1 Ml Vial) 0.5 mg IV Q4H PRN PRN Reason: Anxiety/Agitation Stop: 12/20/24 10:55 Last Admin: 11/21/24 08:04 Dose: 0.5 mg Morphine Sulfate (Morphine Sulfate 2 Mg/Ml Carp) 2 mg IV Q2H PRN PRN Reason: Pain Stop: 12/04/24 16:08 Last Admin: 11/21/24 08:04 Dose: 2 mg Morphine Sulfate (Morphine Sulfate 2 Mg/Ml Carp) 2 mg IV Q4H JOSE Stop: 12/04/24 17:59 Last Admin: 11/21/24 10:19 Dose: 2 mg (8) Change in mental status Altered mental status type: disorientation Qualified Code(s): R41.0 - Disorientation, unspecified (9) Metastatic primary lung cancer Laterality: unspecified laterality Qualified Code(s): C34.90 - Malignant neoplasm of unspecified part of unspecified bronchus or lung
--- NOTE | 2024-11-22 10:47 | Hospitalist Progress Note ---
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 This morning she was noted to be hypoxic on her baseline 2.5L via NC at 76-77% SpO2 with increased work of breathing which prompted the call to EMS. Patient was previously on 2L via NC at baseline however this was recently increased over the past few weeks. Patient initially had to be placed on OxyMask in the ED as she was still hypoxic at 86% SpO2 on 3L via NC upon arrival. Lengthy conversation with family and Heme/Onc during this admission; transitioning to comfort measures starting 11/20. Comfort Measures Only status: Multifocal PNA, COVID Infection Acute on Chronic Respiratory Failure W/ Hypoxia & Hypercapnia: Metastatic Small Cell Lung Cancer, Brain Metastases: HTN, HLD/CAD Valvular Heart Disease & HFpEF: Transitioned to comfort measures only; see below for hospital stay Atrial Fibrillation: OTA continue scheduled IV morphine Pt appears comfortable atropine, lorazepam prn expect pt to pass within hours to days Spoke to Eliel Ding. All questions were answered. I spent a total of 35 minutes coordinating, documenting and providing care for this patient excluding time spent in the performance of separately billed services or time spent by another provider/QHP. Admission and Anticipated Discharge Date Admission Date: November 18, 2024 Supervising Physician Co-Signing Physician Notes delayed entry date of service noted above Attending Addendum: Case reviewed with the advanced practitioner. I have reviewed the advanced practitioner's documentation on the date of service referenced in note, and I agree with, and take responsibility for the plan of care. please refer to her notes for full details diagnoses and plan of care as per advanced practitioner's notes Nishant Colindres MD Subjective Pt seen in room 380-1. Pt appears comfortable. ROS unobtainable from pt given mental status. Pt currently OTA. Son at beside and care discussed. He reports he stayed overnight last night. Review of Systems Review of Systems: All systems reviewed & are unremarkable except as noted in HPI & below Physical Exam Physical Exam: Gen: Thin, elderly female, resting comfortably in bed, NAD Rudolph corona respirations HEENT: Normocephalic, atraumatic, conjunctivae moist, sclerae anicteric, mucous membranes moist. Lung: CTAB no w/r/r Heart: Regular rate, regular rhythm Abdomen: Soft, NT, ND +BS x 4 Extremities: No edema. Thin, no mottling, b/l venous stasis changes Skin: Warm, no rash, negative turgor. Results & Data Results & Data Vital Signs (Past 12 Hours) Vital Signs O2 Del Method O2 Flow Rate 11/22/24 07:20 Nasal Cannula 3 Medications Administered Current Inpatient Medications Atropine Sulfate (Atropine Sulfate 1% Op Soln 5 Ml Btl) 4 drops SL Q3H PRN PRN Reason: secretions Stop: 12/20/24 10:59 Heparin Sodium (Porcine) (Heparin 100 Unit/Ml 5ml Flush) 5 ml FLUSH PRN PRN PRN Reason: Flush Stop: 12/21/24 04:02 Last Admin: 11/22/24 09:55 Dose: 5 ml Lorazepam (Lorazepam 2 Mg/1 Ml Vial) 0.5 mg IV Q4H PRN PRN Reason: Anxiety/Agitation Stop: 12/20/24 10:55 Last Admin: 11/22/24 09:54 Dose: 0.5 mg Morphine Sulfate (Morphine Sulfate 2 Mg/Ml Carp) 2 mg IV Q2H PRN PRN Reason: Pain Stop: 12/04/24 16:08 Last Admin: 11/21/24 12:06 Dose: 2 mg Morphine Sulfate (Morphine Sulfate 2 Mg/Ml Carp) 2 mg IV Q4H JOSE Stop: 12/04/24 17:59 Last Admin: 11/22/24 09:53 Dose: 2 mg (8) Change in mental status Altered mental status type: disorientation Qualified Code(s): R41.0 - Disorientation, unspecified (9) Metastatic primary lung cancer Laterality: unspecified laterality Qualified Code(s): C34.90 - Malignant neoplasm of unspecified part of unspecified bronchus or lung
[2024-11-22] MEDS: ATROPINE SULFATE 1% OP SOLN 5 ML BTL SL PRN (17:22)
--- NOTE | 2024-11-23 07:34 | Hospitalist Progress Note ---
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 Patient previously with a prolonged hospital course under our service from February- March 2024. During that admission, she was diagnosed with metastatic small cell lung cancer and was started on chemotherapy. Patient previously completed chemotherapy in 05/2024 and radiation therapy to her chest in 07/2024. Patient was unfortunately found to have brain metastases in 08/2024 and underwent whole brain radiation therapy which was completed last month shortly before . Sadly she has had an overall decline in her health/functioning/mentation status since completing whole brain radiation therapy. She presented to the ED on 11/18/2024 with confusion/SOB and was found to have acute on chronic respiratory failure 2/2 multifocal PNA ISO COVID infection. She was initially started on aggressive IV ABX therapy however her clinical status drastically declined. She was ultimately transitioned to PASTOR on 11/20/2024 and all medical therapies were stopped. Comfort Measures Only Status - Metastatic Small Cell Lung CA Acute on Chronic Respiratory Failure 2/2 Multifocal PNA ISO COVID Infection: PASTOR; continue scheduled IV morphine. Continue Q2H repositioning, 2L NC O2 support. Patient appears comfortable. Atropine, Ativan PRN. Expect patient to pass within the next few hours to days. Spoke with her son/POA, Timur. All questioned were answered. Disposition: PASTOR - Anticipate patient will in the hospital within the next few hours to days. Will continue to closely communicate with Timur. Patient seen in collaboration with Dr. Pierce. Please see addendum. I spent a total of 40 minutes coordinating, documenting, and providing care for this patient excluding time spent in the performance of separately billed services or time spent by another provider/QHP. This included personally reviewing all current laboratories and imaging studies, medical reconciliation, outpatient chart review and discussion with specialists. This chart was completed in part utilizing Speech Voice Recognition Software. Grammatical errors, random word insertions, pronoun errors, and incomplete sentences are an occasional consequence of this system due to software limitations, ambient noise, and hardware issues. Any formal questions or concerns about the content, text, or information contained within the body of this dictation should be directly addressed to the provider for clarification. Admission and Anticipated Discharge Date Admission Date: November 18, 2024 Supervising Physician Co-Signing Physician Notes I have seen and discussed the case with the collaborating advanced practitioner. I agree with the above PN I have reviewed and confirmed the patients medical history, the findings on physical examination, and the patients diagnosis and treatment plan with Ash GUADALUPE and agree with the information documented. Patient on 11/23 at 1619. See note for exam I spent a total of 10 minutes coordinating, documenting, and providing care for this patient excluding time spent in the performance of separately billed services. All of the aforementioned completed outside of collaborating with the assigned advanced practitioner for a full treatment plan. I have reviewed the advanced practitioner's documentation, and I agree with, and take responsibility for the plan of care Subjective Patient seen and examined at bedside in room N380-1. Currently PASTOR status. Son, Timur, at bedside. We sat together and discussed her care. He requested to have a pulse oximeter and HR monitor placed back on her which has been done. Currently on 2L NC. Appears comfortable. She is unable to communicate at this time 2/2 her mentation status. Review of Systems Review of Systems: Unable to obtain 2/2 patient's mentation status. Physical Exam Physical Exam: General: Frail/elderly F resting comfortably in bed, Rudolph-Alaniz respirations, oropharynx dry. Respiratory: NAD, lung sounds decreased and coarse throughout, on 2L NC. Cardiovascular: Regular rate/rhythm, normal peripheral pulses, trace BLE edema. : Garner catheter intact and draining dark yellow urine output without any is subha. Results & Data Results & Data Vital Signs (Past 12 Hours) Vital Signs O2 Del Method O2 Flow Rate 11/22/24 22:30 Nasal Cannula 3 (5) Metastatic primary lung cancer Laterality: unspecified laterality Qualified Code(s): C34.90 - Malignant neoplasm of unspecified part of unspecified bronchus or lung
--- NOTE | 2024-11-23 16:23 | Discharge Summary ---
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 Comfort Measures Only Status - Metastatic Small Cell Lung CA Acute on Chronic Respiratory Failure 2/2 Multifocal PNA ISO COVID Infection: Patient previously with a prolonged hospital course under our service from February- March 2024. During that admission, she was diagnosed with metastatic small cell lung cancer and was started on chemotherapy. Patient previously completed chemotherapy in 05/2024 and radiation therapy to her chest in 07/2024. Patient was unfortunately found to have brain metastases in 08/2024 and underwent whole brain radiation therapy which was completed last month shortly before . Sadly she has had an overall decline in her health/functioning/mentation status since completing whole brain radiation therapy. She presented to the ED on 11/18/2024 with confusion/SOB and was found to have acute on chronic respiratory failure 2/2 multifocal PNA ISO COVID infection. She was initially started on aggressive IV ABX therapy however her clinical status drastically declined. She was ultimately transitioned to HEL[employer]WE[employer] on 11/20/2024 and all medical therapies were stopped. She was transitioned to [employer] medications including scheduled IV morphine, PRN IV Ativan and PRN atropine drops. Patient on 11/23/2024, at 16:19. Patient seen in collaboration with Dr. Pierce. Please see addendum. I spent a total of 55 minutes coordinating, documenting, and providing care for this patient excluding time spent in the performance of separately billed services or time spent by another provider/QHP. This included personally reviewing all current laboratories and imaging studies, medical reconciliation, outpatient chart review and discussion with specialists. This chart was completed in part utilizing Speech Voice Recognition Software. Grammatical errors, random word insertions, pronoun errors, and incomplete sentences are an occasional consequence of this system due to software li mitations, ambient noise, and hardware issues. Any formal questions or concerns about the content, text, or information contained within the body of this dictation should be directly addressed to the provider for clarification. 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 History obtained from family members at bedside, discussion with the patient's son/POA (Timur) over the phone and associated chart review. Patient unable to provide any additional history due to her mentation status. Patient seen at bedside in the ED with Dr. Tello. Of note, patient with a prolonged hospital course under our service from February- March 2024. In short, patient was newly diagnosed with metastatic small cell lung cancer during that admission and was started on chemotherapy. She follows with Dr. Lyle of [facility]. Patient previously completed chemotherapy in 05/2024 and radiation therapy to her chest in 07/2024. Patient was found to have brain metastases back in 08/2024 and underwent whole brain radiation therapy which was completed last month shortly before . Family notes that she has had an overall decline in her mentation status since completing whole brain radiation therapy. She has become more confused and disoriented with waxing/waning alertness levels. Her grandson mentions she has been sleeping a lot more and appears more fatigued over the past few months. He even noticed that her motor skills have declined. She has unfortunately not been eating or drinking well recently, especially over the past 2 days. This morning she was noted to be hypoxic on her baseline 2.5L via NC at 76-77% SpO2 with increased work of breathing per her grandson, which prompted the call to EMS. Patient was previously on 2L via NC at baseline however this was recently increased over the past few weeks by her son/POA, Timur. Patient initially had to be placed on OxyMask in the ED as she was still hypoxic at 86% SpO2 on 3L via NC upon arrival. She has since been transitioned down to 5L via NC at the time of our evaluation and was saturating around 90-92% SpO2. Confirmed with patient's son/POA, Timur, that she is a DNR/DNI. Timur mentions that she was recently seen by Dr. Lyle last week. She is not currently undergoing any treatments for her cancer. He mentions Dr. Lyle recently started her on levothyroxine. Also started on Namenda. She is also on daily dexamethaso ne for management of headaches secondary to her brain metastases. There has not been a decision made yet regarding transitioning the patient to hospice care. Saturating on 5L via NC at 92% SpO2 at the time of our evaluation in the ED. Hypertensive at time of our evaluation in the ED at 152/120. She was previously hypotensive at 110/47 upon presentation. S/p 0.5L NSS in the ED. Laboratory evaluation in the ED revealed WBC 13k, negative procalcitonin, chloride 85, BUN 47, glucose 306 and elevated troponin (initial 24.5 --> repeat 20.3); VBG with pH of 7.49 with pCO2 of 66 and HCO3 of 50. Respiratory BioFire panel was positive for COVID infection. CXR concerning for multifocal PNA vs atelectasis. Head CT unremarkable. Chest CTA negative for PE however it confirmed multifocal PNA with bronchial wall thickening and mucus plugging. Chest CTA also noted interval enlargement of multiple R-sided pleural-based masses, largest measuring 51 x 29mm in the peridiaphragmatic region, concerning for worsening metastatic disease. Admission Exam Per Admitting Provider General Appearance: Thin, frail, chronic ill appearing, no apparent distress Head: normocephalic, Atraumatic Eyes: normal inspection, EOMI Neck: supple, Trachea midline Respiratory/Chest: Decreased breath sounds, CTA, +chemo port, No accessory muscle use Cardiovascular: S1, S2, No murmur Abdomen/GI:Soft, Non tender, Bowel sounds present Extremities/Musculoskeletal:normal inspection, 2+ LE edema, LLE blister in dressing Neurologic/Psych:Drowsy/awakes easily, oriented to person and place while awake, unable to perform complete neurological exam due to patient's mental status Skin: normal color, warm Discharge Exam Please refer to Dr. Ly's note for exam. Updated Medication List Medication Instructions Recorded Confirmed Type albuterol sulfate 90 mcg/actuation 2 puff inhalation QID PRN 04/19/24 11/18/24 Rx aerosol inhaler shortness of breath or wheezing #8.5 grams amiodarone 200 mg tablet 200 mg PO DAILY #90 tabs 04/19/24 11/18/24 Rx calcium 600 mg (as carbonate)-vit 1 tab PO HS #30 tabs 04/19/24 11/18/24 Rx D3 20 mcg (800 unit) chewable tablet (Caltrate plus D) metoprolol tartrate 50 mg tablet 50 mg PO BID #180 tabs 04/19/24 11/18/24 Rx multivitamin 1 tab PO QAM #30 tabs 04/19/24 11/18/24 Rx ondansetron HCl 8 mg tablet 8 mg PO Q8H PRN Nausea/Vomiting 06/02/24 11/18/24 History prochlorperazine maleate 10 mg 10 mg PO Q6H PRN Nausea/Vomiting 06/02/24 11/18/24 History tablet (Compazine) apixaban 5 mg tablet 2.5 mg PO BID 09/19/24 11/18/24 History memantine 5 mg tablet 5 mg PO DAILY Receiving brain 10/04/24 11/18/24 Rx radiation therapy #70 tabs amlodipine 2.5 mg tablet 2.5 mg PO QAM 11/18/24 11/18/24 History aspirin 81 mg chewable tablet 81 mg PO QAM 11/18/24 11/18/24 History (Aspirin Childrens) buspirone 10 mg tablet 10 mg PO QAM 11/18/24 11/18/24 History dexamethasone 4 mg tablet See Rx Instructions .Route .COMPLEX 11/18/24 11/18/24 History dronabinol 2.5 mg capsule 2.5 mg PO BID 11/18/24 11/18/24 History furosemide 20 mg tablet 20 mg PO QAM 11/18/24 11/18/24 History gabapentin 300 mg capsule 300 mg PO BID 11/18/24 11/18/24 History levothyroxine 75 mcg capsule 75 mcg PO QAM 11/18/24 11/18/24 History losartan 100 mg tablet 100 mg PO QAM 11/18/24 11/18/24 History oxycodone 5 mg tablet 5 mg PO Q4H PRN Pain 11/18/24 11/18/24 History potassium chloride 10 mEq 10 meq PO BID 11/18/24 11/18/24 History capsule,extended release Hospital Stay Data Consultations 11/18/24 15:30 Consult Hematology Routine 11/18/24 15:48 ED Decision to Admit Stat 11/19/24 14:34 Consult Urology Routine Diagnostic Imagining Performed 11/18/24 13:13 CT head/brain wo con Stat 11/18/24 13:14 CT angio chest PE protocol Stat Total Time Total Time Spent Total Time Spent (In Minutes): 55 Supervising Physician Co-Signing Physician Notes I have seen and discussed the case with the collaborating advanced practitioner. I agree with the above DS I have reviewed and confirmed the patients medical history, the findings on physical examination, and the patients diagnosis and treatment plan with Ash GUADALUPE and agree with the information documented. Patient on 11/23 at 1619. See note for exam I spent a total of 10 minutes coordinating, documenting, and providing care for this patient excluding time spent in the performance of separately billed services. All of the aforementioned completed outside of collaborating with the assigned advanced practitioner for a full treatment plan. I have reviewed the advanced practitioner's documentation, and I agree with, and take responsibility for the plan of care
--- NOTE | 2024-11-23 16:24 | Communication Note ---
Date of Service: November 23, 2024 I was called to patients bedside to pronounce patient as . No spontaneous movements were present. There was no response to verbal or tactile stimuli. Pupils were mid-dilated and fixed. No carotid pulses were palpable. No heart sounds were auscultated over entire precordium. Family was notified and at bedside. The family has not made a decision of autopsy at the time of this note. Foil Operator and postmortem services were offered. Patient was DNR at time of . Time of was 1619 on 11/23/2024 General: unresponsive, no spontaneous movements, no response to verbal or tactile stimuli. Eyes: pupils fixed and dilated, corneal reflexes absent. CV: no heart sounds, no carotid pulses. Lungs: no breath sounds, no chest wall motion. Extremities: absent distal pulses
--- NOTE | 2024-11-23 16:28 | Death Pronouncement Note ---
Date of Service November 23, 2024 Pronouncement Note Admission Date Admission Date: November 18, 2024 Contributing Factors (1) Comfort measures only status: (2) COVID: (3) Multifocal pneumonia: (4) Acute on chronic respiratory failure with hypoxia and hypercapnia: (5) Metastatic primary lung cancer: Additional Data Attending physician: Deanna Pierce MD
== END 2024-11-23 18:22 | disposition expired | DRG 177 ==
LOC: ED 12:46 → 2E 16:54 → SUATTDRO 16:54 → 2E 18:41 → 3N 11-20 12:02
DX: Z51.5 Encounter for palliative care; J12.82 Pneumonia due to coronavirus disease 2019; R73.9 Hyperglycemia, unspecified; I50.32 Chronic diastolic (congestive) heart failure; Y92.009 Unspecified place in unspecified non-institutional (private) residence as the place of occurrence of the external cause; Z92.3 Personal history of irradiation; J96.21 Acute and chronic respiratory failure with hypoxia; G93.41 Metabolic encephalopathy; T38.0X5A Adverse effect of glucocorticoids and synthetic analogues, initial encounter; J96.22 Acute and chronic respiratory failure with hypercapnia; I48.91 Unspecified atrial fibrillation; C34.90 Malignant neoplasm of unspecified part of unspecified bronchus or lung; Z66 Do not resuscitate; U07.1 COVID-19; C79.31 Secondary malignant neoplasm of brain; Z95.2 Presence of prosthetic heart valve